=== PATIENT | male | born 1945 | race Caucasian/White ===

== ENCOUNTER → 2016-12-14 | Outpatient (CLI) | payer OTHER ==
[~2016-12-14] MED LIST: ALBINS/ INH; ALBU1AER9 INH; AMLO5TAB2 PO; ASPCH81X PO; ASPI81TA28 PO; ATOR-14 PO; ATOR10TA82 PO; BENA-4 PO; CETI10TA10 PO; DOXA1TAB PO; FEXO180T PO; FLUT0.0529 NAE; FLUT1INH INH; GLIM1TAB2 PO; HYDR12.55 PO; IPRASOL4 INH; LEVO100T7 PO; METF1TAB53 PO; MOME200A INH; MONT1TAB3 PO; PRLSR20 PO; SCOP1.5D TD; SNG10 PO; SPRIN/30 INH; TADA10TA PO; TIOTCAP INH
[2016-12-15 05:42] LABS: ESTIMATED AVERAGE GLUCOSE 103 mg/dl; HA1C FLAG Normal (Normal)
== END | disposition home or self-care (01) ==
LOC: C.LAB 14:31
PROVIDERS: ATTEND Family Medicine
DX: E11.9 Type 2 diabetes mellitus without complications (principal)

== ENCOUNTER → 2017-02-19 | Day surgery (SDC) | payer OTHER ==
[2017-02-13 08:23] VITALS: Ht 157.5 cm; Wt 70.5 kg
[~2017-02-19] VITALS: Ht 157.5 cm; Wt 70.5 kg
[~2017-02-19] MED LIST changes: -ALBINS/ INH; -ALBU1AER9 INH; -ASPI81TA28 PO; -ATOR-14 PO; -ATOR10TA82 PO; +ATOR10TA88 PO; -BENA-4 PO; -DOXA1TAB PO; -FEXO180T PO; -GLIM1TAB2 PO; +LIDOCAINE HCL 2% 2 ML VIAL (20MG/ML) ONE; -MOME200A INH; -MONT1TAB3 PO; +PROPOFOL IV EMULSION 10 MG/ML 20 ML VIAL IV ONE; -SCOP1.5D TD; +SODIUM CHLORIDE 0.9% 500ML 500 ML IV ONE; -TADA10TA PO; -TIOTCAP INH; +[UNRECOGNIZED DRUG - CODE] PO
--- NOTE | 2017-02-19 10:14 | Endo History and Physical ---
History & Physical Date of Service: Feb 19, 2017. Chief Complaint: Hx of colon Polyps Referring Physician: Dr Cynthia Temple History of Present Illness 71 yo presenting for evaluation of tubular adenoma history for repeat colonoscopy Past Medical History Diabetes, Asthma, Reflux, Heart Disease, Hypertension Past Surgical History Hx Cardiac Surgery: No Hx Internal Defibrillator: No Hx Pacemaker: No Hx Abdominal Surgery: No Hx of Implantable Prosthesis: No Hx Post-Op Nausea and Vomiting: No Hx Cancer Surgery: No Hx Thoracic Surgery: Yes (BRONCHOSCOPY) Hx Orthopedic: Yes (LEFT RCR) Hx Urinary Tract Surgery: No Family History None Social History Smoking Status: Never Smoker Hx Substance Use: No Hx Alcohol Use: No Allergies Coded Allergies: Cat Dander (Verified Allergy, Unknown, watery eyes, 02/19/17) NO KNOWN DRUG ALLERGIES (Verified Allergy, Unknown, ., 02/13/17) Current Medications Reported Home Medications Medications Dose Route/Sig Max Daily Dose Days Date Category Duoneb (Ipratropium-Albuterol) 3 Ml Nebu 1 Treatment INH Q4H PRN 02/13/17 Reported Spiriva Handihaler (Tiotropium [place]) 30 Puff/540 Mcg Aerp 1 Cap INH DAILY AFTERNOON 02/13/17 Reported Breo Ellipta (Fluticasone Furoate-Vilanterol) 1 Inh Inh 1 Puff INH QAM 02/13/17 Reported Aspirin Chewable (Aspirin) 81 Mg Chew 81 Mg PO QAM 02/13/17 Reported Doxazosin (Doxazosin Mesylate) 2 Mg Tab 1 Tab PO HS 02/13/17 Reported Levothyroxine Sodium 100 Mcg Tab 1 Tab PO QAM 90 02/13/17 Reported Norvasc (Amlodipine Besylate) 5 Mg Tab 5 Mg PO QAM 02/13/17 Reported Prilosec (Omeprazole) 20 Mg Capcr 20 Mg PO QAM 02/13/17 Reported Hydrochlorothiazide 12.5 Mg Tab 1 Tab PO QAM 90 02/13/17 Reported Zyrtec (Cetirizine Hcl) 10 Mg Tab 10 Mg PO QAM 02/13/17 Reported Montelukast Sodium (Montelukast Sod) 10 Mg Tab 1 Tab PO QAM 02/13/17 Reported Lipitor (Atorvastatin Calcium) 10 Mg Tab 10 Mg PO QAM 02/13/17 Reported Glucophage Ext Rel (Metformin Hcl) 1,000 Mg Tab 1,000 Mg PO BID 02/13/17 Reported Flonase (Fluticasone Propionate (Nasal)) 50 Mcg/Act Spr 2 [place] JORGE DAILY 30 03/11/15 Reported Vital Signs Weight (Kilograms): 70.45 Height (Feet): 5 Height (Inches): 2 Physical Exam General Appearance: WD/WN, no apparent distress Respiratory/Chest: Respiratory effort: no dyspnea Auscultation: breath sounds normal, CTA except as noted, no wheezing Cardiovascular: Apical Impulse: not displaced Heart Auscultation: RRR, normal S1, normal S2 Abdomen: Bowel Sounds: normal Inspection & Palpation: soft, non-distended Assessment and Plan 71 yo presenting for follow up for history of tubular adenomas
--- NOTE | 2017-02-19 11:20 | Discharge Instructions ---
Endoscopy Patient Instructions Date / Procedure(s) Performed Feb 19, 2017. Colonoscopy Allergy Information Coded Allergies: Cat Dander (Verified Allergy, Unknown, watery eyes, 02/19/17) NO KNOWN DRUG ALLERGIES (Verified Allergy, Unknown, ., 02/13/17) Discharge Date / Findings Feb 19, 2017. One small polyp-removed Repeat colonoscopy in 5 years Medication Instructions Stopped Medication(s): Patient stoped ASA and Metformin Provider Instructions Activity Restrictions - No exercising or heavy lifting for 24 hours. - Do not drink alcohol the day of the procedure. - Do not drive a car or operate machinery until the day after the procedure. - Do not make any important decisions or sign important papers in 24 hours after the procedure. Following Day: - Return to full activity which may include returning to work/school. Diet Start your diet with liquids and light foods (jello, soup, juice, toast). Then eat your usual diet if not nauseated. Treatment For Common After Affects For mild abdominal pain, bloating, or excessive gas: - Rest - Eat lightly - Lie on right side Follow-Up Information Follow-up with Dr Cynthia Temple as scheduled Anesthesia Information What You Should Know You have had a procedure that required some medicine to reduce anxiety and discomfort. This treatment is called moderate sedation. After receiving the treatment, you may be sleepy, but you will be able to breathe on your own. The effects of the treatment may last for several hours. Follow these instructions along with Activity/Diet recommendations noted above: * Do NOT do anything where dizziness or clumsiness would be dangerous. * Rest quietly at home today, then you can be up and about tomorrow. * Have a responsible person stay with you the rest of today. * You may have had an I.V. today. If so, you may take the dressing off later today. Recommendations Call your doctor if: * Trouble breathing * Continuous vomiting for more than 24 hours * Temperature above 101 degrees * Severe abdominal pain or bloating * Pain not relieved by pain medicine ordered * There is increased drainage or redness from any incision * A large amount of rectal bleeding greater than 2-3 tablespoons. (If you had a polyp/s removed or have hemorrhoids, a small amount of blood - from the rectum is to be expected.) * You have any unanswered questions or concerns. IN THE EVENT OF A SERIOUS EMERGENCY, GO TO THE NEAREST EMERGENCY ROOM Your discharge instructions were prepared by provider Garett Gomez. Patient Instructions Signature Page Alcides Sebastian Patient (or Guardian) Signature/Date: I have read and understand the instructions given to me by my caregivers. Caregiver/RN/Doctor Signature/Date: The above-named patient and/or guardian has received patient instructions on this date. + Original Patient Signature Page (only) stays with chart. Please make copy for patient.
--- NOTE | 2017-02-19 11:20 | GI REPORT ---
Procedure Date: 02/19/2017 10:32 AM Procedure: Colonoscopy Indications: High risk colon cancer surveillance: Personal history of colonic polyps Medicines: General Anesthesia Complications: No immediate complications. Estimated blood loss: None. Estimated Blood Loss: Estimated blood loss: none. Procedure: Pre-Anesthesia Assessment: - Pre-Anesthesia Assessment: - Prior to the procedure, a History and Physical was performed, and patient medications, allergies and sensitivities were reviewed. The patient's tolerance of previous anesthesia was reviewed. Please see [facility] for complete details. - The risks and benefits of the procedure and the sedation options and risks were discussed with the patient. All questions were answered and informed consent was obtained. - Patient identification and proposed procedure were verified prior to the procedure by the physician and the nurse. The procedure was verified in the pre-procedure area in the procedure room. After obtaining informed consent, the endoscope was passed carefully and meticuously under direct vision and only advanced when the lumen was clearly identified, C02 insuflation was utilized throughout the entirity of the procedure. Throughout the procedure, the patient's blood pressure, pulse, and oxygen saturations were monitored continuously. After I obtained informed consent, the scope was passed under direct vision. Throughout the procedure, the patient's blood pressure, pulse, and oxygen saturations were monitored continuously. The scope was introduced through the anus and advanced to the cecum, identified by appendiceal orifice and ileocecal valve. The colonoscopy was performed without difficulty. The patient tolerated the procedure well. The quality of the bowel preparation was good. Findings: A 3 mm polyp was found in the transverse colon. The polyp was sessile. The polyp was removed with a jumbo cold forceps. Resection and retrieval were complete. The terminal ileum appeared normal. Multiple small-mouthed diverticula were found in the sigmoid colon. Internal hemorrhoids were found during retroflexion. The exam was otherwise without abnormality on direct and retroflexion views. Impression: - One 3 mm polyp in the transverse colon, removed with a jumbo cold forceps. Resected and retrieved. - The examined portion of the ileum was normal. - Diverticulosis in the sigmoid colon. - Internal hemorrhoids. - The examination was otherwise normal on direct and retroflexion views. Recommendation: - Discharge patient to home (with escort). - Await pathology results. - Repeat colonoscopy in 5 years for surveillance. - Return to referring physician as previously scheduled. Garett Gomez MD 02/19/2017 11:19:37 AM This report has been signed electronically. Note Initiated On: 02/19/2017 10:32 AM I attest to the content of the Intraoperative Record and orders documented therein, exceptions below
[2017-02-19 11:52] VITALS: BP 133/88; PULSE 91; O2SAT 96
--- NOTE | 2017-02-19 11:55 | Anesthesiology Progress Note ---
Anesthesia Post Op Note Date & Time Feb 19, 2017 at 11:54 Vital Signs Pain Intensity: 0 Vital Signs Past 12 Hours Date Time Temp Pulse Resp B/P (MAP) Pulse Ox O2 Delivery O2 Flow Rate FiO2 02/19/17 11:52 91 20 133/88 (103) 96 Room Air 02/19/17 11:37 86 20 135/86 (102) 96 Room Air 02/19/17 11:22 91 20 140/96 (111) 97 Mask 10 02/19/17 10:19 36.5 101 20 136/82 (100) 96 Room Air Notes Mental Status: alert / awake / arousable, participated in evaluation Pt Amnestic to Procedure: Yes Nausea / Vomiting: adequately controlled Pain: adequately controlled Airway Patency, RR, SpO2: stable & adequate BP & HR: stable & adequate Hydration State: stable & adequate Anesthetic Complications: no major complications apparent
== END | disposition home or self-care (01) ==
LOC: C.GI 09:53
PROVIDERS: ATTEND Internal Medicine
DX: Z12.11 Encounter for screening for malignant neoplasm of colon (principal); Z86.010 Personal history of colon polyps; D12.3 Benign neoplasm of transverse colon; K57.30 Diverticulosis of large intestine without perforation or abscess without bleeding; K64.8 Other hemorrhoids; E11.9 Type 2 diabetes mellitus without complications; J45.909 Unspecified asthma, uncomplicated; K21.9 Gastro-esophageal reflux disease without esophagitis; I10 Essential (primary) hypertension; Z79.82 Long term (current) use of aspirin; Z79.4 Long term (current) use of insulin; Z90.89 Acquired absence of other organs; E78.5 Hyperlipidemia, unspecified; M19.90 Unspecified osteoarthritis, unspecified site; E03.9 Hypothyroidism, unspecified

== ENCOUNTER 2018-12-02 10:34 | Inpatient (IN) ==
--- OUTSIDE RECORDS SUMMARY | 2018-12-02 10:37 | External Medical Summary | Continuity of Care Document ---
:1945 Author Name Zechariah Hathaway, Provider Address Unavailable Unavailable , Care Team Providers Name Role Phone Hal Paul M.D. Unavailable [email or web address] Unavailable [email or web address] Unavailable Unavailable Unavailable Unavailable Problems Benign prostatic hypertrophy (600.00) (N40.0) Gastroesophageal reflux disease (530.81) (K21.9) Hypertension (401.9) (I10) Hyperlipidemia (272.4) (E78.5) Diabetes mellitus (250.00) (E11.9) Allergic rhinitis due to animal dander (477.2) (J30.81) Allergic rhinitis due to dust (477.8) (J30.89) Allergic rhinitis due to pollen (477.0) (J30.1) Visit for monitoring Xolair therapy (V58.83) (Z51.81) Asthma, moderate persistent (493.90) (J45.40) Allergies and Adverse Reactions No Known Drug Allergies (Allergy) Medications Aspirin 81 MG TABS; TAKE 1 TABLET DAILY. Refills: 0 ProAir HFA 108 (90 Base) MCG/ACT Inhalat ion Aerosol Solution; INHALE 2 PUFFS EVERY 4 HOURS NEEDED 8.5 GM Inhaler Quantity: 1 Refills: 5 Omeprazole 20 MG Oral Capsule Delayed Re lease; TAKE 1 CAPSULE BY MOUTH ONCE A DAY 1 HOUR BEFORE FIRST MEAL OF THE DAY Refills: 0 Cialis 20 MG Oral Tablet; Take 1 pill by mouth prior to intercourse, no more than 1 dose in 24 hours Refills: 0 Doxazosin Mesylate 2 MG Oral Tablet; TAKE 1 TABLET DAILY DIRECTED. Refills: 0 Singulair 10 MG Oral Tablet; TAKE 1 TABLET DAILY. Quantity: 30 Refills: 5 Lipitor 10 MG Oral Tablet; TAKE 1 TABLET DAILY. Refills: 0 Benazepril-hydroCHLOROthiazide 20-12.5 M G Oral Tablet; TAKE 1 TABLET DAILY DIRECTED. Refills: 0 Spiriva HandiHaler 18 MCG Inhalation Cap shirley; INHALE CONTENTS OF 1 CAPSULE ONCE DAILY. 90 Capsule Box Quantity: 1 Refills: 3 Synthroid 100 MCG Oral Tablet; TAKE 1 TABLET DAILY DIRECT ED. Refills: 5 Breo Ellipta 200-25 MCG/INH Inhalation A erosol Powder Breath Activated; INHALE 1 PUFF BY MOUTH ONCE DAILY DIRETCED Mag Paul Start: Quantity: 1 28 Inhaler Pack Refills: 11 EPINEPHrine 0.3 MG/0.3ML Injection Solut ion Auto-injector; INJECT 0.3ML INTRAMUSCULARLY DIRECTED. Mag Pual Start: 18-Jul-2015 Quantity: 1 Refills: 4 Mometasone Furoate 50 MCG/ACT Nasal Susp ension; APPLY TWO Sprays in each nostril EVERY DAY LEONOR Garay Start: 03-Mar-2018 Quantity: 17 Refills: 5 metFORMIN HCl TABS Refills: 0 Cetirizine HCl - 10 MG Oral Tablet Refills: 0 amLODIPine Besylate 5 MG Oral Tablet; TAKE 1 TABLET DAILY DIRECTED. Refills: 0 Ipratropium-Albuterol 0.5-2.5 (3) MG/3ML Inhalation Solution; USE 1 UNIT DOSE IN NEBULIZER 2-3 TIMES DAILY. LEONOR Garay Start: 17-Mar-2015 Quantity: 5 60 x 3 ML Plas Cont Refills: 3 Xolair 150 MG Subcutaneous Solution Yusuf nstituted; INJECT 150 MG SUBCUTANEOUSLY EVERY 4 WEEKS. Mag Paul Start: 12-Apr-2015 Quantity: 1 Refills: 11 Procedures History of Colonoscopy (Fiberoptic) Stat us: Completed History of Shoulder Surgery Left Status: Completed Immunizations Tdap On: 04-Mar-2007 Pneumococcal polysaccharide vaccine, 23 valent On: 12-Oct-19 12 Zoster (Zostavax) On: 18-Apr-2012 Influenza On: 28-May-2014 Prevnar 13 Intramuscular Suspension On: 23-Aug-2014 Influenza On: 28-Apr-2015 Family History Mother Family history of diabetes mellitus (V18.0) (Z83.3) Status: Active Father Family history of emphysema (V17.6) (Z82.5) Status: Active Social History - Smoking Status Never smoker Plan of Treatment Planned Encounters Appointment; Hal Paul M.D. Start: 27-Jan-2019 10:[address] Planned Observations Planned Goals not documented Results No Known Results Results not documented Encounters Appointment; Nurse, Allergy 10-Nov-2018 9:50 Encounter Diagnosis: Problem not documented Appointment; Nurse, Allergy 09-Oct-2018 9:50 Encounter Diagnosis: Problem not documented Appointment; Nurse, Allergy 01-Sep-2018 9:30 Encounter Diagnosis: Problem not documented Appointment; Hal Paul M.D. 13-Aug-2018 13:30 Encounter Diagnosis: Problem not documented Appointment; Nurse, Allergy 31-Jul-2018 9:30 Encounter Diagnosis: Problem not documented Appointment; Nurse, Allergy 30-Jun-2018 9:30 Encounter Diagnosis: Problem not documented Appointment; Nurse, Allergy 02-Jun-2018 9:30 Encounter Diagnosis: Problem not documented Appointment; Nurse, Allergy 01-May-2018 9:30 Encounter Diagnosis: Problem not documented Appointment; Nurse, Allergy 01-Apr-2018 9:50 Encounter Diagnosis: Problem not documented Appointment; Nurse, Allergy 03-Mar-2018 11:50 Encounter Diagnosis: Problem not documented Appointment; Hal Paul M.D. 10-Feb-2018 14:45 Encounter Diagnosis: Problem not documented Appointment; Pulmonary, Funct Testing 10-Feb-2018 14:30 Encounter Diagnosis: Problem not documented Appointment; Nurse, Allergy 05-Feb-2018 9:50 Encounter Diagnosis: Problem not documented Appointment; Nurse, Allergy 06-Jan-2018 9:50 Encounter Diagnosis: Problem not documented Appointment; Nurse, Allergy 09-Dec-2017 9:50 Encounter Diagnosis: Problem not documented Appointment; Nurse, Allergy 11-Nov-2017 8:30 Encounter Diagnosis: Problem not documented Appointment; Nurse, Allergy 09-Oct-2017 9:30 Encounter Diagnosis: Problem not documented Appointment; Nurse, Allergy 11-Sep-2017 9:30 Encounter Diagnosis: Problem not documented Appointment; Nurse, Allergy 12-Aug-2017 9:30 Encounter Diagnosis: Problem not documented Appointment; Hal Paul M.D. 25-Jul-2017 10:30 Encounter Diagnosis: Problem not documented Appointment; Nurse, Allergy 08-Jul-2017 9:30 Encounter Diagnosis: Problem not documented Appointment; Nurse, Allergy 10-Jun-2017 9:30 Encounter Diagnosis: Problem not documented Appointment; Nurse, Allergy 09-May-2017 9:30 Encounter Diagnosis: Problem not documented Appointment; Nurse, Allergy 11-Apr-2017 9:30 Encounter Diagnosis: Problem not documented Appointment; Nurse, Allergy 11-Mar-2017 9:30 Encounter Diagnosis: Problem not documented Appointment; Nurse, Allergy 08-Feb-2017 9:30 Encounter Diagnosis: Problem not documented Appointment; Hal Paul M.D. 17-Jan-2017 9:45 Encounter Diagnosis: Problem not documented Appointment; Pulmonary, Funct Testing 17-Jan-2017 9:30 Encounter Diagnosis: Problem not documented Appointment; Nurse, Allergy 07-Jan-2017 9:30 Encounter Diagnosis: Problem not documented Appointment; Nurse, Allergy 10-Dec-2016 9:30 Encounter Diagnosis: Problem not documented Appointment; aHl Paul M.D. 27-Jan-2019 10:30 Encounter Diagnosis: Problem not documented
[2018-12-02] MEDS ORDERED: LEVOFLOXACIN/D5W 750 MG/150 ML BAG IV STA (11:09)
[2018-12-02] MEDS ORDERED: SODIUM CHLORIDE 0.9% 1000ML 2,000 ML IV ONE (11:09)
--- NOTE | 2018-12-02 11:20 | XRay Report ---
XR chest 1V portable CLINICAL HISTORY: Sepsis COMPARISON STUDY: 12/22/2015 FINDINGS: The heart is enlarged. There are lower lobe airspace opacities, atelectatic versus pneumoni a there is no failure. There are minor right basilar atelectatic changes. There are no significant pl eural effusions. IMPRESSION: Interval development of left lower lung zone airspace opacities, pneumonia versus atelect asis. Clinical and radiographic follow-up is recommended. Electronically signed by: Sadi Becerra M.D. 12/02/2018 11:19 AM
[2018-12-02 11:26] LABS: Basophils # (auto) 0.01 K/uL (0-0.2); Basophils % (auto) 0.1 %; Hematocrit (blood only) 40.6 % (42-52); Hemoglobin 14.8 g/dL (14.0-18.0); Immature Granulocytes # (auto) 0.07 K/uL (0.00-0.02); Immature Granulocytes % (auto) 0.6 %; Lymphocytes % (auto) 9.7 %; Mean Corpuscular Hgb Conc 36.5 g/dL (32-36); Mean Corpuscular Volume 83.2 fL (80-100); Monocytes # (auto) 1.61 K/uL (0.11-0.59); Monocytes % (auto) 14.2 %; Neutrophils # (auto) 8.54 K/uL (1.4-6.5); Neutrophils % (auto) 75.4 %; Platelet Count 257 K/uL (130-400); RDW Coefficient of Variation 14.5 % (11.5-14.5); RDW Standard Deviation 43.9 fL (36.4-46.3); Red Blood Count 4.88 M/uL (4.7-6.1); White Blood Count 11.33 K/uL (4.8-10.8)
[2018-12-02 11:44] LABS: Alanine Aminotransferase 36 U/L (12-78); Albumin Level 3.8 gm/dl (3.4-5.0); Aspartate Aminotransferase 18 U/L (15-37); Blood Urea Nitrogen 14 mg/dl (7-18); Calcium 8.9 mg/dl (8.5-10.1); Carbon Dioxide 26 mmol/L (21-32); Chloride 96 mmol/L (98-107); Est GFR (African American) 99.5; Est GFR (Non-African American) 85.8; Glucose 161 mg/dl (70-99); Potassium 3.4 mmol/L (3.5-5.1); Sodium 133 mmol/L (136-145)
[2018-12-02 11:46] LABS: Albumin Globulin Ratio 1.1 (0.9-2); Alkaline Phosphatase 33 U/L (45-117); Bilirubin,Total 0.6 mg/dl (0.2-1); Globulin 3.5 gm/dl (2.5-4.0); Total Protein 7.3 gm/dl (6.4-8.2)
[2018-12-02 11:47] LABS: INR 1.1 (0.9-1.1); Partial Thromboplastin Ratio 0.9; Prothrombin Time 11.3 Seconds (9.0-12.0)
[2018-12-02] MEDS ORDERED: ALBUTEROL 0.083% NEBU SOLN 3 ML VIAL NEB STA (11:48)
[2018-12-02] MEDS ORDERED: cefTRIAXone SODIUM 1,000 MG/50 ML BAG IV STA (11:55)
[2018-12-02 12:28] LABS: Appearance Urine Clear (Clear); Bacteria Urine Automated Negative (Negative); Bilirubin Urine Negative (Negative); Blood Urine Negative (Negative); Color Urine Yellow; Epithelial Cell Urine Auto 0-5 /lpf (0-5); Glucose Urine UA Negative (Negative); Ketones Urine Trace (Negative); Leukocyte Esterase Urine Negative (Negative); Nitrite Urine Negative (Negative); Protein Urine Trace (Negative); RBC Urine Automated 0-4 /hpf (0-4); Specific Gravity Urine 1.023 (1.000-1.030); Urobilinogen Urine Negative (Negative)
[2018-12-02] MEDS: ACETAMINOPHEN 325 MG TAB PO PRN (13:04)
--- NOTE | 2018-12-02 13:32 | History & Physical Report ---
Date of Service December 02, 2018 Assessment & Plan (1) Pneumonia: (2) Sepsis: (3) Asthma, moderate persistent: -Admit to telemetry -Patient presenting from home with productive cough and shortness of breath x 1 day -On presentation, WBC 11 K, tachycardic, low-grade fever 37.8, lactic acid 2.1, tachypneic; BP stable -Saturating in the low 90s on room air, 2 L of oxygen via nasal cannula was applied -S/P ceftriaxone and levofloxacin in the ED, will continue with levofloxacin for now and check MRSA nasal swab and add vancomycin if positive -Continue IVF -Blood and sputum cultures -Check ABG -Influenza PCR negative -Given history of asthma, will start Solu-Medrol 40 mg IV every 8 -Continue home inhaled corticosteroid -Pulmonary toilet with nebulizers, flutter valve, chest PT (4) HTN (hypertension): -BP controlled, continue amlodipine -Holding HCTZ while receiving IVF for sepsis (5) DM type 2 (diabetes mellitus, type 2): -Hgb A1c 5.6 07/2018 -Hold oral agents and utilize NovoLog per protocol hospitalized (6) Hypothyroidism: -Continue levothyroxine (7) Dyslipidemia: -Continue statin (8) BPH (benign prostatic hyperplasia): -Continue doxazosin (9) DVT prophylaxis: -SQ Lovenox History of Present Illness Chief Complaint: Cough, shortness of breath Primary Care Provider: Cynthia Tempel MD 73-year-old male who presents the ED with cough and shortness of breath. Patient reports his symptoms began yesterday. Patient with history of asthma with frequent exacerbations and pneumonia. Patient was most recent diagnosis of pneumonia on 10/02/2018. reports she had similar URI symptoms last week. Patient reports a persistent cough that is been productive for green sputum. He reports shortness of breath at rest as well as with minimal exertion. He begin a prednisone rescue kit yesterday. He reports some chest pain only with coughing. He did not take his temperature at home. He denies lightheadedness, dizziness, diaphoresis, syncopal events. No abdominal pain, nausea, vomiting, diarrhea. He denies any urinary symptoms. In the ED, patient was saturating in the low 90s, tachycardic in the 140s, febrile 37.8, tachypneic, WBC 11 K, lactic acid 2.1. CXR showing left basilar opacity consistent with pneumonia. Sepsis alert was called when patient arrived to the ED. He was given IVF, IV Levaquin, IV ceftriaxone, albuterol. Allergies Allergy/AdvReac Type Severity Reaction Status Date / Time cat dander Allergy Unknown watery eyes Verified 12/02/18 11:58 No Known Drug Allergies Allergy Unknown . Verified 12/02/18 11:58 Home Medications Home Medications Medication Instructions Recorded Confirmed Type aspirin [Aspirin Low Dose] 81 mg PO DAILY #0 tab 02/13/17 12/02/18 History atorvastatin 10 mg PO DAILY #0 tab 02/13/17 12/02/18 History doxazosin 2 mg PO DAILY #0 02/13/17 12/02/18 History fluticasone furoate-vilanterol 1 inh INHALATION DAILY #0 02/13/17 12/02/18 History [Breo Ellipta] ipratropium-albuterol 3 ml INHALATION Q4 PRN #0 inh 02/13/17 12/02/18 History levothyroxine 100 mcg PO DAILY 90 Days #90 tab 02/13/17 12/02/18 History montelukast 10 mg PO QAM #0 02/13/17 12/02/18 History omeprazole 20 mg PO DAILY #0 cap 02/13/17 12/02/18 History tiotropium bromide [Spiriva with 1 cap INHALATION DAILY AFTERNOON 02/13/17 12/02/18 History HandiHaler] #0 inhaler albuterol sulfate 2 puff INHALATION Q4H PRN 12/02/18 12/02/18 History amlodipine 5 mg PO DAILY 12/02/18 12/02/18 History beclomethasone dipropionate [QNASL] 2 inh INTRANASAL DAILY 12/02/18 12/02/18 History hydrochlorothiazide 12.5 mg PO DAILY 12/02/18 12/02/18 History metformin 1,000 mg PO BID 12/02/18 12/02/18 History mometasone 2 spray INTRANASAL DAILY 12/02/18 12/02/18 History omalizumab [Xolair] 150 mg SUBCUT UD 12/02/18 12/02/18 History tadalafil [Cialis] 20 mg PO DAILY PRN 12/02/18 12/02/18 History Past Med/Surg History Medical History BPH (benign prostatic hyperplasia) (Chronic) HTN (hypertension) (Chronic) Allergic rhinitis (Chronic) Asthma, moderate persistent (Chronic) Dyslipidemia (Chronic) Hypothyroidism (Chronic) DM type 2 (diabetes mellitus, type 2) (Chronic) Family History Mother Diabetes Father Diabetes Sister Diabetes Social History Preferred Language: Jordanian Communication Ability: Effective 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 Beliefs That Will Affect Care: None marital status: Current Living Situation: Spouse current occupational status: retired Other Information That Helps Us Care for You: No Feels Safe at Home: Yes Safety Concerns: Feels Safe At This Time Smoking Status: Never smoker Hx Alcohol Use: No Hx Substance Use: No Review of Systems Review of Systems: ROS per HPI, all other systems reviewed and negative Physical Exam Constitutional: WD/WN, vitals as above + ill appearing Eyes: PERRL, conjunctivae normal, anicteric sclerae ENMT: external ear and nose normal, oropharynx normal Respiratory: + tachypneic; + abnormal respiratory effort and + not able to speak in complete sentence (Mild conversational dyspnea noted) Auscultation: + rhonchi (Bilateral, scattered throughout all lung barros) Cardiovascular: Rate/Rhythm: regular rhythm and + tachycardic Vessels: normal peripheral pulses Extremities: no edema Gastrointestinal (Abdomen): normal bowel sounds, soft, nontender, no hepatosplenomegaly Musculoskeletal: no cyanosis or clubbing, extremities motor strength 5/5 Skin: no rashes, warm and dry Neurologic: PERRL, EOMI, accommodation nl, no face palsy, no dysarthria Psychiatric: A+Ox3, euthymic affect Results & Data Vital Signs (Past 12 Hours) Vital Signs Temp Pulse Pulse Resp BP BP Pulse Ox 12/02/18 12:48 140 H 18 139/90 94 12/02/18 11:14 94 12/02/18 11:07 91 12/02/18 10:44 37.8 C H 130 H 20 152/92 H 92 Laboratory Results Laboratory Last Values WBC 11.33 K/uL (4.8-10.8) H 12/02/18 11:09 RBC 4.88 M/uL (4.7-6.1) 12/02/18 11:09 Hgb 14.8 g/dL (14.0-18.0) 12/02/18 11:09 Hct 40.6 % (42-52) L 12/02/18 11:09 MCV 83.2 fL (80-100) 12/02/18 11:09 MCH 30.3 pg (25-34) 12/02/18 11:09 MCHC 36.5 g/dL (32-36) H 12/02/18 11:09 RDW Std Deviation 43.9 fL (36.4-46.3) 12/02/18 11:09 RDW Coeff of Zainab 14.5 % (11.5-14.5) 12/02/18 11:09 Plt Count 257 K/uL (130-400) 12/02/18 11:09 MPV 9.0 fL (7.4-10.4) 12/02/18 11:09 Immature Gran % (Auto) 0.6 % 12/02/18 11:09 Neut % (Auto) 75.4 % 12/02/18 11:09 Lymph % (Auto) 9.7 % 12/02/18 11:09 [place] % (Auto) 14.2 % 12/02/18 11:09 Eos % (Auto) 0.0 % 12/02/18 11:09 Baso % (Auto) 0.1 % 12/02/18 11:09 Immature Gran # (Auto) 0.07 K/uL (0.00-0.02) H 12/02/18 11:09 Neut # (Auto) 8.54 K/uL (1.4-6.5) H 12/02/18 11:09 Lymph # (Auto) 1.10 K/uL (1.2-3.4) L 12/02/18 11:09 [place] # (Auto) 1.61 K/uL (0.11-0.59) H 12/02/18 11:09 Eos # (Auto) 0.00 K/uL (0-0.5) 12/02/18 11:09 Baso # (Auto) 0.01 K/uL (0-0.2) 12/02/18 11:09 PT 11.3 Seconds (9.0-12.0) 12/02/18 11:09 INR 1.1 (0.9-1.1) 12/02/18 11:09 APTT 25.0 Seconds (21.0-31.0) 12/02/18 11:09 PTT Ratio 0.9 12/02/18 11:09 Sodium 133 mmol/L (136-145) L 12/02/18 11:09 Potassium 3.4 mmol/L (3.5-5.1) L 12/02/18 11:09 Chloride 96 mmol/L (98-107) L 12/02/18 11:09 Carbon Dioxide 26 mmol/L (21-32) 12/02/18 11:09 Anion Gap 10.0 (3-11) 12/02/18 11:09 BUN 14 mg/dl (7-18) 12/02/18 11:09 Creatinine 0.88 mg/dl (0.6-1.4) 12/02/18 11:09 Est Cr Clr Drug Dosing Not Reportable 12/02/18 11:09 Est GFR ( Amer) 99.5 12/02/18 11:09 Est GFR (Non-Af Amer) 85.8 12/02/18 11:09 BUN/Creatinine Ratio 16.0 (10-20) 12/02/18 11:09 Glucose 161 mg/dl (70-99) H 12/02/18 11:09 POC Glucose 159 (70-99) H 12/02/18 11:37 Lactate 2.1 mmol/L (0.4-2.0) H* 12/02/18 11:15 Calcium 8.9 mg/dl (8.5-10.1) 12/02/18 11:09 Total Bilirubin 0.6 mg/dl (0.2-1) 12/02/18 11:09 AST 18 U/L (15-37) 12/02/18 11:09 ALT 36 U/L (12-78) 12/02/18 11:09 Alkaline Phosphatase 33 U/L (45-117) L 12/02/18 11:09 Total Protein 7.3 gm/dl (6.4-8.2) 12/02/18 11:09 Albumin 3.8 gm/dl (3.4-5.0) 12/02/18 11:09 Globulin 3.5 gm/dl (2.5-4.0) 12/02/18 11:09 Albumin/Globulin Ratio 1.1 (0.9-2) 12/02/18 11:09 Urine Color Yellow 12/02/18 10:54 Urine Appearance Clear (Clear) 12/02/18 10:54 Urine pH 6.0 (4.5-7.5) 12/02/18 10:54 Ur Specific [place] 1.023 (1.000-1.030) 12/02/18 10:54 Urine Protein Trace (Negative) H 12/02/18 10:54 Urine Glucose (UA) Negative (Negative) 12/02/18 10:54 Urine Ketones Trace (Negative) H 12/02/18 10:54 Urine Blood Negative (Negative) 12/02/18 10:54 Urine Nitrite Negative (Negative) 12/02/18 10:54 Urine Bilirubin Negative (Negative) 12/02/18 10:54 Urine Urobilinogen Negative (Negative) 12/02/18 10:54 Ur Leukocyte Esterase Negative (Negative) 12/02/18 10:54 Urine WBC (Auto) 1-5 /hpf (0-5) 12/02/18 10:54 Urine RBC (Auto) 0-4 /hpf (0-4) 12/02/18 10:54 U Hyaline Cast (Auto) 1-5 /lpf (0-5) 12/02/18 10:54 U Epithel Cells (Auto) 0-5 /lpf (0-5) 12/02/18 10:54 Urine Bacteria (Auto) Negative (Negative) 12/02/18 10:54 Influenza Type A Ag Neg for Influ A (Neg) 12/02/18 12:15 Influenza Type B Ag Neg for Influ B (Neg) 12/02/18 12:15 Diagnostic Findings CXR IMPRESSION: Interval development of left lower lung zone airspace opacities, pneumonia versus atelectasis. Clinical and radiographic follow-up is recommended. Code Status & VTE Plan Code Status Patient is a full code as per my discussion with him. VTE Prophylaxis Plan VTE Prophylaxis will be ordered: Yes Supervising Physician Co-Signing Physician Notes 73-year-old male with PMH of asthma, BPH HTN, Hypothyroidism, DM type 2 presents the ED with worsening shortness of breath associated with cough. CXR on admission showed interval development of left lower lung zone airspace opacities. He does have a coarse BS on exam. Received Levaquin and ceftriaxone in the ER. Will start on solumedrol 40mg IV q8h. Will continue Levaquin IV for now. Continue nebulizer treatment and oxygen supplement. Will monitor closely. MD Yinka
[2018-12-02 13:53] LABS: HCO3 VBG 27 mmol/L; Oxygen Saturation VBG 67.6 %; PCO2 VBG 41 mmHg (38-50); PO2 VBG 34 mmHg; pH VBG 7.45 (7.36-7.41)
[2018-12-02] MEDS ORDERED: GLUCOSE 10 TABS/TUBE PO PRN (14:10)
[2018-12-02] MEDS ORDERED: CARBOHYDRATES FOR HYPOGLYCEMIA PO PRN (14:10)
[2018-12-02] MEDS ORDERED: XOPENEX/ATROVENT 1.25mg/0.5MG NEB COMBO NEB SCH (14:10)
[2018-12-02] MEDS ORDERED: GLUCOSE 40% GEL 15 GM TUBE PO PRN (14:10)
[2018-12-02] MEDS ORDERED: DEXTROSE 50% 50 ML SYRINGE IV PRN (14:10)
[2018-12-02] MEDS ORDERED: GLUCAGON FOR INJ 1 MG VIAL SQ PRN (14:10)
[2018-12-02] MEDS ORDERED: POTASSIUM CHLORIDE 20 MEQ TABCR PO ONE (15:18)
[2018-12-02] MEDS ORDERED: IPRATROPIUM BROMIDE NEB SOLN 0.02% 2.5 ML VIAL INH PRN (15:32)
[2018-12-02] MEDS ORDERED: LEVALBUTEROL 1.25MG/0.5ML NEB INH PRN (15:34)
[2018-12-02] MEDS: SODIUM CHLORIDE 0.9% 1000ML 1,000 ML IV SCH ×2 (15:45→21:11)
[2018-12-02] MEDS: methylPREDNISolone 40 MG in SYRINGE 0 ML IV SCH (15:45)
--- NOTE | 2018-12-02 17:50 | Emergency Department Note ---
Entered by Mariela Fitch acting as a scribe for History of Present Illness General Chief complaint: Weakness Stated complaint: WEAKNESS Source: patient and family History of Present Illness Onset (ago): day(s) 1 Location: head Pain Consistency: + other (persistent) Quality: + other (weakness) Associated symptoms: + denies other symptoms (sore throat, rhinorrhea, abdominal pain, nausea, vomiting, diarrhea, or urinary complaints), + cough (productive) and + headaches The patient is a 73 year old male that is presenting to the Emergency Room with complaints of persistent weakness that started yesterday. The patient reports that he started feeling very weak and lethargic yesterday with an associated productive cough. He states that he is coughing up green mucous. He denies any sore throat, rhinorrhea, abdominal pain, nausea, vomiting, diarrhea, or urinary complaints. He states he had a mild headache earlier today but that it is currently resolved and was secondary to coughing. He denies having any fevers at home prior to arrival to the Emergency Room. He states that he does not wear O2 at home. He notes that his had a similar cough recently. The patient denies ever smoking cigarettes. Home Medications Home Medications Medication Instructions Recorded Confirmed Type aspirin [Aspirin Low Dose] 81 mg PO DAILY #0 tab 02/13/17 12/02/18 History atorvastatin 10 mg PO DAILY #0 tab 02/13/17 12/02/18 History doxazosin 2 mg PO DAILY #0 02/13/17 12/02/18 History fluticasone furoate-vilanterol 1 inh INHALATION DAILY #0 02/13/17 12/02/18 His tory [Breo Ellipta] ipratropium-albuterol 3 ml INHALATION Q4 PRN #0 inh 02/13/17 12/02/18 History levothyroxine 100 mcg PO DAILY 90 Days #90 tab 02/13/17 12/02/18 History montelukast 10 mg PO QAM #0 02/13/17 12/02/18 History omeprazole 20 mg PO DAILY #0 cap 02/13/17 12/02/18 History tiotropium bromide [Spiriva with 1 cap INHALATION DAILY AFTERNOON 02/13/17 12/02/18 History HandiHaler] #0 inhaler albuterol sulfate 2 puff INHALATION Q4H PRN 12/02/18 12/02/18 History amlodipine 5 mg PO DAILY 12/02/18 12/02/18 History beclomethasone dipropionate [QNASL] 2 inh INTRANASAL DAILY 12/02/18 12/02/18 History hydrochlorothiazide 12.5 mg PO DAILY 12/02/18 12/02/18 History metformin 1,000 mg PO BID 12/02/18 12/02/18 History mometasone 2 spray INTRANASAL DAILY 12/02/18 12/02/18 History omalizumab [Xolair] 150 mg SUBCUT UD 12/02/18 12/02/18 History tadalafil [Cialis] 20 mg PO DAILY PRN 12/02/18 12/02/18 History Allergies Allergy/AdvReac Type Severity Reaction Status Date / Time cat dander Allergy Unknown watery eyes Verified 12/02/18 11:58 No Known Drug Allergies Allergy Unknown . 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 and A total of 10 systems reviewed and were otherwise negative Physical Exam Vital Signs Vital Signs - 24 hr 12/02/18 10:44 12/02/18 11:07 12/02/18 11:14 Temperature 37.8 C H Temperature Source Oral Sepsis Recent Fever Within 48 Hours Yes Sepsis New/Unexplained Change in Mental Status Yes Sepsis Action Taken by Nursing No Action Required Pulse Rate 130 H Pulse Rate [Apical] Pulse Rhythm [Apical] Pulse Strength [Apical] Respiratory Rate 20 Respiratory Effort / Characteristics Respiratory Depth Respiratory Pattern Blood Pressure 152/92 H Blood Pressure [Left Arm] Blood Pressure Mean 112 Blood Pressure Mean [Left Arm] Blood Pressure Position [Left Arm] Pulse Oximetry 92 91 94 Oxygen Delivery Method Room Air Room Air Nasal Cannula Nasal Cannula Oxygen Flow Rate 0 2 12/02/18 12:48 12/02/18 14:00 12/02/18 14:25 Temperature 37.8 C H Temperature Source Oral Sepsis Recent Fever Within 48 Hours Sepsis New/Unexplained Change in Mental Status Sepsis Action Taken by Nursing Pulse Rate Pulse Rate [Apical] 140 H 125 H 115 H Pulse Rhythm [Apical] Regular Pulse Strength [Apical] Normal Respiratory Rate 18 16 18 Respiratory Effort / Characteristics Non-Labored Spontaneous Non-Labored Spontaneous Respiratory Depth Normal Respiratory Pattern Regular Blood Pressure Blood Pressure [Left Arm] 139/90 121/78 Blood Pressure Mean Blood Pressure Mean [Left Arm] 106 92 Blood Pressure Position [Left Arm] Lying Pulse Oximetry 94 95 95 Oxygen Delivery Method Nasal Cannula Nasal Cannula Nasal Cannula Oxygen Flow Rate 2 2 2 12/02/18 15:04 Temperature 37.4 C Temperature Source Oral Sepsis Recent Fever Within 48 Hours Sepsis New/Unexplained Change in Mental Status Sepsis Action Taken by Nursing Pulse Rate Pulse Rate [Apical] 120 H Pulse Rhythm [Apical] Pulse Strength [Apical] Respiratory Rate 20 Respiratory Effort / Characteristics Respiratory Depth Respiratory Pattern Blood Pressure Blood Pressure [Left Arm] 130/87 Blood Pressure Mean Blood Pressure Mean [Left Arm] 101 Blood Pressure Position [Left Arm] Sitting Pulse Oximetry 92 Oxygen Delivery Method Nasal Cannula Oxygen Flow Rate 2.5 GENERAL: Lying in bed, ill appearing, diaphoretic EYE EXAM: normal conjunctiva, PERRL and EOM's grossly intact OROPHARYNX: no exudate, no erythema, lips, buccal mucosa, and tongue normal and mucous membranes are moist NECK: supple, no nuchal rigidity, no adenopathy, non-tender LUNGS: Diffuse wheezing bilaterally. Normal chest wall mechanics HEART: no murmurs, S1 normal and S2 normal. Tachycardic. ABDOMEN: abdomen soft, non-tender, normo-active bowel sounds, no masses, no rebound or guarding. BACK: Back is symmetrical on inspection and there is no deformity, no midline tenderness, no CVA tenderness. SKIN: no rashes and no bruising UPPER EXTREMITIES: upper extremities are grossly normal. LOWER EXTREMITIES: No pitting edema. NEURO EXAM: Normal sensorium, cranial nerves II-XII grossly intact, normal speech, no gross weakness of arms, no gross weakness of legs. Course ED COURSE: Vital signs were reviewed and showed tachycardia and hypertension. The patients medical record was reviewed The above diagnostic studies were performed and reviewed. ED treatments and interventions as stated above. 1056: The patient was evaluated in room A03. A complete history and physical examination was performed. 1154: I discussed the patient's case with MARIA GUADALUPE Powers, who will evaluate the patient for further management and care. 1158: Upon reevaluation, the patient is resting comfortably.I discussed my findings with the patient and he understands and agrees with the treatment plan. Based on the patients age, coexisting illnesses, exam and lab findings the decision to treat as an inpatient was made. The patient remained stable while under my care. The patient will be evaluated for further management. Consultations Consultation #1: I discussed the patient's case with MARIA GUADALUPE Powers, who will evaluate the patient for further management and care. Time: 11:54 Administered Medications Acetaminophen (Tylenol) 650 mg PO Q4H PRN PRN Reason: Pain or Fever Stop: 01/01/19 12:30 Last Admin: 12/02/18 13:04 Dose: 650 mg Documented by: [id number] Sodium Chloride (Nss 1000ml) 1,000 mls @ 125 mls/hr IV .Q8H HARRISON Stop: 01/01/19 15:14 Last Admin: 12/02/18 15:45 Dose: 125 mls/hr Documented by: [id number] Methylprednisolone 40 mg/ (Syringe) 0.64 mls @ 1.5 mls/min IV Q8H HARRISON Stop: 01/01/19 15:59 Last Admin: 12/02/18 15:45 Dose: 1.5 mls/min Documented by: [id number] Discontinued Medications Albuterol (Ventolin 0.083% 2.5mg/3ml) 5 mg NEB NOW STA Stop: 12/02/18 11:49 Last Admin: 12/02/18 11:55 Dose: 5 mg Documented by: [id number] Sodium Chloride (Nss 1000ml) 2,000 mls @ 999 mls/hr IV .Q2H1M ONE Stop: 12/02/18 13:09 Last Infusion: 12/02/18 13:24 Dose: 0 mls/hr Documented by: [id number] Admin: 12/02/18 11:20 Dose: 999 mls/hr Documented by: [id number] Levofloxacin/Dextrose (Levaquin/D5w) 750 mg in 150 mls @ 100 mls/hr IV NOW STA Stop: 12/02/18 12:38 Last Infusion: 12/02/18 13:24 Dose: 0 mls/hr Documented by: [id number] Admin: 12/02/18 11:54 Dose: 100 mls/hr Documented by: [id number] Ceftriaxone Sodium (Rocephin) 1,000 mg in 50 mls @ 100 mls/hr IV NOW STA Stop: 12/02/18 12:24 Last Infusion: 12/02/18 12:46 Dose: 0 mls/hr Documented by: [id number] Admin: 12/02/18 12:15 Dose: 100 mls/hr Documented by: [id number] Miscellaneous (Levalbuterol/Ipratropium 1.25mg) 1 ea NEB Q6R HARRISON Stop: 01/01/19 14:09 Last Admin: 12/02/18 14:24 Dose: 1 ea Documented by: [id number] Potassium Chloride (Klor-Con M20) 40 meq PO NOW ONE Stop: 12/02/18 15:19 Last Admin: 12/02/18 15:45 Dose: 40 meq Documented by: [id number] Medical Decision Making Differential Diagnosis Differential diagnosis includes etiologies such as sepsis, UTI, pneumonia, metabolic, electrolyte abnormalities, cardiac sources, intracerebral event, toxicologic, neurologic, as well as others were entertained. Medical Records Attestation: I reviewed the patient's medical records. Home Medications Current Medication List: was personally reviewed by me Laboratory Data Attestation: I reviewed the patient's lab results. Result diagrams: 12/02/18 11:09 12/02/18 11:09 Lab Results 12/02/18 12/02/18 12/02/18 Range/Units 10:54 11:09 11:09 WBC 11.33 H (4.8-10.8) K/uL RBC 4.88 (4.7-6.1) M/uL Hgb 14.8 (14.0-18.0) g/dL Hct 40.6 L (42-52) % MCV 83.2 (80-100) fL MCH 30.3 (25-34) pg MCHC 36.5 H (32-36) g/dL RDW Std Deviation 43.9 (36.4-46.3) fL RDW Coeff of Zainab 14.5 (11.5-14.5) % Plt Count 257 (130-400) K/uL MPV 9.0 (7.4-10.4) fL Immature Gran % (Auto) 0.6 % Neut % (Auto) 75.4 % Lymph % (Auto) 9.7 % [place] % (Auto) 14.2 % Eos % (Auto) 0.0 % Baso % (Auto) 0.1 % Immature Gran # (Auto) 0.07 H (0.00-0.02) K/uL Neut # (Auto) 8.54 H (1.4-6.5) K/uL Lymph # (Auto) 1.10 L (1.2-3.4) K/uL [place] # (Auto) 1.61 H (0.11-0.59) K/uL Eos # (Auto) 0.00 (0-0.5) K/uL Baso # (Auto) 0.01 (0-0.2) K/uL PT 11.3 (9.0-12.0) Seconds INR 1.1 (0.9-1.1) APTT 25.0 (21.0-31.0) Seconds PTT Ratio 0.9 ABG pH ABG pCO2 ABG pO2 ABG HCO3 ABG O2 Saturation ABG Base Excess Nirav Test VBG pH (7.36-7.41) VBG pCO2 (38-50) mmHg VBG pO2 mmHg VBG HCO3 mmol/L VBG O2 Saturation % VBG Base Excess mEq/L Barometric Pressure Oxygen Given Sodium (136-145) mmol/L Potassium (3.5-5.1) mmol/L Chloride (98-107) mmol/L Carbon Dioxide (21-32) mmol/L Anion Gap (3-11) BUN (7-18) mg/dl Creatinine (0.6-1.4) mg/dl Est Cr Clr Drug Dosing Est GFR ( Amer) Est GFR (Non-Af Amer) BUN/Creatinine Ratio (10-20) Glucose (70-99) mg/dl POC Glucose (70-99) Lactate (0.4-2.0) mmol/L Calcium (8.5-10.1) mg/dl Total Bilirubin (0.2-1) mg/dl AST (15-37) U/L ALT (12-78) U/L Alkaline Phosphatase (45-117) U/L Total Protein (6.4-8.2) gm/dl Albumin (3.4-5.0) gm/dl Globulin (2.5-4.0) gm/dl Albumin/Globulin Ratio (0.9-2) Urine Color Yellow Urine Appearance Clear (Clear) Urine pH 6.0 (4.5-7.5) Ur Specific [place] 1.023 (1.000-1.030) Urine Protein Trace H (Negative) Urine Glucose (UA) Negative (Negative) Urine Ketones Trace H (Negative) Urine Blood Negative (Negative) Urine Nitrite Negative (Negative) Urine Bilirubin Negative (Negative) Urine Urobilinogen Negative (Negative) Ur Leukocyte Esterase Negative (Negative) Urine WBC (Auto) 1-5 (0-5) /hpf Urine RBC (Auto) 0-4 (0-4) /hpf U Hyaline Cast (Auto) 1-5 (0-5) /lpf U Epithel Cells (Auto) 0-5 (0-5) /lpf Urine Bacteria (Auto) Negative (Negative) Nasal Screen MRSA (PCR) (Negative) Hepatitis C Ab Screen (Neg) Influenza Type A Ag (Neg) Influenza Type B Ag (Neg) 12/02/18 12/02/18 12/02/18 Range/Units 11:09 11:09 11:15 WBC (4.8-10.8) K/uL RBC (4.7-6.1) M/uL Hgb (14.0-18.0) g/dL Hct (42-52) % MCV (80-100) fL MCH (25-34) pg MCHC (32-36) g/dL RDW Std Deviation (36.4-46.3) fL RDW Coeff of Zainab (11.5-14.5) % Plt Count (130-400) K/uL MPV (7.4-10.4) fL Immature Gran % (Auto) % Neut % (Auto) % Lymph % (Auto) % [place] % (Auto) % Eos % (Auto) % Baso % (Auto) % Immature Gran # (Auto) (0.00-0.02) K/uL Neut # (Auto) (1.4-6.5) K/uL Lymph # (Auto) (1.2-3.4) K/uL [place] # (Auto) (0.11-0.59) K/uL Eos # (Auto) (0-0.5) K/uL Baso # (Auto) (0-0.2) K/uL PT (9.0-12.0) Seconds INR (0.9-1.1) APTT (21.0-31.0) Seconds PTT Ratio ABG pH ABG pCO2 ABG pO2 ABG HCO3 ABG O2 Saturation ABG Base Excess Nirav Test VBG pH (7.36-7.41) VBG pCO2 (38-50) mmHg VBG pO2 mmHg VBG HCO3 mmol/L VBG O2 Saturation % VBG Base Excess mEq/L Barometric Pressure Oxygen Given Sodium 133 L (136-145) mmol/L Potassium 3.4 L (3.5-5.1) mmol/L Chloride 96 L (98-107) mmol/L Carbon Dioxide 26 (21-32) mmol/L Anion Gap 10.0 (3-11) BUN 14 (7-18) mg/dl Creatinine 0.88 (0.6-1.4) mg/dl Est Cr Clr Drug Dosing Not Reportable Est GFR ( Amer) 99.5 Est GFR (Non-Af Amer) 85.8 BUN/Creatinine Ratio 16.0 (10-20) Glucose 161 H (70-99) mg/dl POC Glucose (70-99) Lactate 2.1 H* (0.4-2.0) mmol/L Calcium 8.9 (8.5-10.1) mg/dl Total Bilirubin 0.6 (0.2-1) mg/dl AST 18 (15-37) U/L ALT 36 (12-78) U/L Alkaline Phosphatase 33 L (45-117) U/L Total Protein 7.3 (6.4-8.2) gm/dl Albumin 3.8 (3.4-5.0) gm/dl Globulin 3.5 (2.5-4.0) gm/dl Albumin/Globulin Ratio 1.1 (0.9-2) Urine Color Urine Appearance (Clear) Urine pH (4.5-7.5) Ur Specific [place] (1.000-1.030) Urine Protein (Negative) Urine Glucose (UA) (Negative) Urine Ketones (Negative) Urine Blood (Negative) Urine Nitrite (Negative) Urine Bilirubin (Negative) Urine Urobilinogen (Negative) Ur Leukocyte Esterase (Negative) Urine WBC (Auto) (0-5) /hpf Urine RBC (Auto) (0-4) /hpf U Hyaline Cast (Auto) (0-5) /lpf U Epithel Cells (Auto) (0-5) /lpf Urine Bacteria (Auto) (Negative) Nasal Screen MRSA (PCR) (Negative) Hepatitis C Ab Screen Neg (Neg) Influenza Type A Ag (Neg) Influenza Type B Ag (Neg) 12/02/18 12/02/18 12/02/18 Range/Units 11:37 12:15 13:31 WBC (4.8-10.8) K/uL RBC (4.7-6.1) M/uL Hgb (14.0-18.0) g/dL Hct (42-52) % MCV (80-100) fL MCH (25-34) pg MCHC (32-36) g/dL RDW Std Deviation (36.4-46.3) fL RDW Coeff of Zainab (11.5-14.5) % Plt Count (130-400) K/uL MPV (7.4-10.4) fL Immature Gran % (Auto) % Neut % (Auto) % Lymph % (Auto) % [place] % (Auto) % Eos % (Auto) % Baso % (Auto) % Immature Gran # (Auto) (0.00-0.02) K/uL Neut # (Auto) (1.4-6.5) K/uL Lymph # (Auto) (1.2-3.4) K/uL [place] # (Auto) (0.11-0.59) K/uL Eos # (Auto) (0-0.5) K/uL Baso # (Auto) (0-0.2) K/uL PT (9.0-12.0) Seconds INR (0.9-1.1) APTT (21.0-31.0) Seconds PTT Ratio ABG pH Cancelled ABG pCO2 Cancelled ABG pO2 Cancelled ABG HCO3 Cancelled ABG O2 Saturation Cancelled ABG Base Excess Cancelled Nirav Test Cancelled VBG pH (7.36-7.41) VBG pCO2 (38-50) mmHg VBG pO2 mmHg VBG HCO3 mmol/L VBG O2 Saturation % VBG Base Excess mEq/L Barometric Pressure Cancelled Oxygen Given Cancelled Sodium (136-145) mmol/L Potassium (3.5-5.1) mmol/L Chloride (98-107) mmol/L Carbon Dioxide (21-32) mmol/L Anion Gap (3-11) BUN (7-18) mg/dl Creatinine (0.6-1.4) mg/dl Est Cr Clr Drug Dosing Est GFR ( Amer) Est GFR (Non-Af Amer) BUN/Creatinine Ratio (10-20) Glucose (70-99) mg/dl POC Glucose 159 H (70-99) Lactate (0.4-2.0) mmol/L Calcium (8.5-10.1) mg/dl Total Bilirubin (0.2-1) mg/dl AST (15-37) U/L ALT (12-78) U/L Alkaline Phosphatase (45-117) U/L Total Protein (6.4-8.2) gm/dl Albumin (3.4-5.0) gm/dl Globulin (2.5-4.0) gm/dl Albumin/Globulin Ratio (0.9-2) Urine Color Urine Appearance (Clear) Urine pH (4.5-7.5) Ur Specific [place] (1.000-1.030) Urine Protein (Negative) Urine Glucose (UA) (Negative) Urine Ketones (Negative) Urine Blood (Negative) Urine Nitrite (Negative) Urine Bilirubin (Negative) Urine Urobilinogen (Negative) Ur Leukocyte Esterase (Negative) Urine WBC (Auto) (0-5) /hpf Urine RBC (Auto) (0-4) /hpf U Hyaline Cast (Auto) (0-5) /lpf U Epithel Cells (Auto) (0-5) /lpf Urine Bacteria (Auto) (Negative) Nasal Screen MRSA (PCR) (Negative) Hepatitis C Ab Screen (Neg) Influenza Type A Ag Neg for Influ A (Neg) Influenza Type B Ag Neg for Influ B (Neg) 12/02/18 12/02/18 12/02/18 Range/Units 13:33 14:53 15:40 WBC (4.8-10.8) K/uL RBC (4.7-6.1) M/uL Hgb (14.0-18.0) g/dL Hct (42-52) % MCV (80-100) fL MCH (25-34) pg MCHC (32-36) g/dL RDW Std Deviation (36.4-46.3) fL RDW Coeff of Zainab (11.5-14.5) % Plt Count (130-400) K/uL MPV (7.4-10.4) fL Immature Gran % (Auto) % Neut % (Auto) % Lymph % (Auto) % [place] % (Auto) % Eos % (Auto) % Baso % (Auto) % Immature Gran # (Auto) (0.00-0.02) K/uL Neut # (Auto) (1.4-6.5) K/uL Lymph # (Auto) (1.2-3.4) K/uL [place] # (Auto) (0.11-0.59) K/uL Eos # (Auto) (0-0.5) K/uL Baso # (Auto) (0-0.2) K/uL PT (9.0-12.0) Seconds INR (0.9-1.1) APTT (21.0-31.0) Seconds PTT Ratio ABG pH ABG pCO2 ABG pO2 ABG HCO3 ABG O2 Saturation ABG Base Excess Nirav Test VBG pH 7.45 H (7.36-7.41) VBG pCO2 41 (38-50) mmHg VBG pO2 34 mmHg VBG HCO3 27 mmol/L VBG O2 Saturation 67.6 % VBG Base Excess 3.0 mEq/L Barometric Pressure Oxygen Given Sodium (136-145) mmol/L Potassium (3.5-5.1) mmol/L Chloride (98-107) mmol/L Carbon Dioxide (21-32) mmol/L Anion Gap (3-11) BUN (7-18) mg/dl Creatinine (0.6-1.4) mg/dl Est Cr Clr Drug Dosing Est GFR ( Amer) Est GFR (Non-Af Amer) BUN/Creatinine Ratio (10-20) Glucose (70-99) mg/dl POC Glucose (70-99) Lactate 2.5 H* (0.4-2.0) mmol/L Calcium (8.5-10.1) mg/dl Total Bilirubin (0.2-1) mg/dl AST (15-37) U/L ALT (12-78) U/L Alkaline Phosphatase (45-117) U/L Total Protein (6.4-8.2) gm/dl Albumin (3.4-5.0) gm/dl Globulin (2.5-4.0) gm/dl Albumin/Globulin Ratio (0.9-2) Urine Color Urine Appearance (Clear) Urine pH (4.5-7.5) Ur Specific [place] (1.000-1.030) Urine Protein (Negative) Urine Glucose (UA) (Negative) Urine Ketones (Negative) Urine Blood (Negative) Urine Nitrite (Negative) Urine Bilirubin (Negative) Urine Urobilinogen (Negative) Ur Leukocyte Esterase (Negative) Urine WBC (Auto) (0-5) /hpf Urine RBC (Auto) (0-4) /hpf U Hyaline Cast (Auto) (0-5) /lpf U Epithel Cells (Auto) (0-5) /lpf Urine Bacteria (Auto) (Negative) Nasal Screen MRSA (PCR) Negative (Negative) Hepatitis C Ab Screen (Neg) Influenza Type A Ag (Neg) Influenza Type B Ag (Neg) 12/02/18 Range/Units 16:12 WBC (4.8-10.8) K/uL RBC (4.7-6.1) M/uL Hgb (14.0-18.0) g/dL Hct (42-52) % MCV (80-100) fL MCH (25-34) pg MCHC (32-36) g/dL RDW Std Deviation (36.4-46.3) fL RDW Coeff of Zainab (11.5-14.5) % Plt Count (130-400) K/uL MPV (7.4-10.4) fL Immature Gran % (Auto) % Neut % (Auto) % Lymph % (Auto) % [place] % (Auto) % Eos % (Auto) % Baso % (Auto) % Immature Gran # (Auto) (0.00-0.02) K/uL Neut # (Auto) (1.4-6.5) K/uL Lymph # (Auto) (1.2-3.4) K/uL [place] # (Auto) (0.11-0.59) K/uL Eos # (Auto) (0-0.5) K/uL Baso # (Auto) (0-0.2) K/uL PT (9.0-12.0) Seconds INR (0.9-1.1) APTT (21.0-31.0) Seconds PTT Ratio ABG pH ABG pCO2 ABG pO2 ABG HCO3 ABG O2 Saturation ABG Base Excess Nirav Test VBG pH (7.36-7.41) VBG pCO2 (38-50) mmHg VBG pO2 mmHg VBG HCO3 mmol/L VBG O2 Saturation % VBG Base Excess mEq/L Barometric Pressure Oxygen Given Sodium (136-145) mmol/L Potassium (3.5-5.1) mmol/L Chloride (98-107) mmol/L Carbon Dioxide (21-32) mmol/L Anion Gap (3-11) BUN (7-18) mg/dl Creatinine (0.6-1.4) mg/dl Est Cr Clr Drug Dosing Est GFR ( Amer) Est GFR (Non-Af Amer) BUN/Creatinine Ratio (10-20) Glucose (70-99) mg/dl POC Glucose 132 H (70-99) Lactate (0.4-2.0) mmol/L Calcium (8.5-10.1) mg/dl Total Bilirubin (0.2-1) mg/dl AST (15-37) U/L ALT (12-78) U/L Alkaline Phosphatase (45-117) U/L Total Protein (6.4-8.2) gm/dl Albumin (3.4-5.0) gm/dl Globulin (2.5-4.0) gm/dl Albumin/Globulin Ratio (0.9-2) Urine Color Urine Appearance (Clear) Urine pH (4.5-7.5) Ur Specific [place] (1.000-1.030) Urine Protein (Negative) Urine Glucose (UA) (Negative) Urine Ketones (Negative) Urine Blood (Negative) Urine Nitrite (Negative) Urine Bilirubin (Negative) Urine Urobilinogen (Negative) Ur Leukocyte Esterase (Negative) Urine WBC (Auto) (0-5) /hpf Urine RBC (Auto) (0-4) /hpf U Hyaline Cast (Auto) (0-5) /lpf U Epithel Cells (Auto) (0-5) /lpf Urine Bacteria (Auto) (Negative) Nasal Screen MRSA (PCR) (Negative) Hepatitis C Ab Screen (Neg) Influenza Type A Ag (Neg) Influenza Type B Ag (Neg) Imaging Data Radiologist's Impression: Radiology results as stated below per my review and the radiologist's interpretation: XR chest 1V portable CLINICAL HISTORY: Sepsis COMPARISON STUDY: 12/22/2015 FINDINGS: The heart is enlarged. There are lower lobe airspace opacities, atelectatic versus pneumonia there is no failure. There are minor right basilar atelectatic changes. There are no significant pleural effusions. IMPRESSION: Interval development of left lower lung zone airspace opacities, pneumonia versus atelectasis. Clinical and radiographic follow-up is recommended. Electronically signed by: Sadi Becerra M.D. 12/02/2018 11:19 AM ECG Data Attestation: I personally reviewed and interpreted this ECG as follows: Indication: weakness Rate (beats per minute): 127 Rhythm: sinus tachycardia Findings: + other (normal axis); no PVC Blood Pressure Blood Pressure Findings: Elevated blood pressure Blood Pressure Disposition: further management by hospitalist ROSELINE Narrative Patient is a 73-year-old male who presents the ER for cough associate with congestion which is been present for the past 48 hours. Upon presentation he is found to be febrile and tachycardic with a heart rate in the 130s to 140s. On exam he has rhonchi bilateral bases. Labs were obtained and showed a mild leukocytosis of 11.3 thousand. No significant anemia. INR was unremarkable. VBG with a pH of 7.45. BMP was fairly unremarkable. Lactate was elevated 2.5. Bilirubin LFTs were normal. UA was negative. Influenza was negative. Chest x-ray with bilateral infiltrates. Patient was given IV Rocephin and Levaquin. He was given 2 L IV fluids. He was updated bedside. Discussed with the hospitalist and patient was minute for further work-up of sepsis secondary to pneumonia. Impression & Plan Sepsis, Pneumonia Critical Care Time I have personally spent 35 minutes of critical care time in the direct management of this patient. This includes bedside care, interpretation of diagnostic studies, and testing, discussion with consultants, patient, and family members, and other required patient management activities. This 35 minutes is in excess of all separately billable procedures. Critical Care Time: Yes Total Critical Care Time: 35 Discharge Plan Visit Data *Final* Discharge Date/Time: 12/02/18 13:22 Chief Complaint: Weakness Stated Complaint: WEAKNESS ED Provider: Elia Aguilera Discharge Problem: Sepsis, Pneumonia Patient Disposition: Admitted As Inpatient Discharge Instructions Interventions: ED Discharge Assessment Last Done: 12/02/18 13:22 The scribe's documentation has been prepared under my direction and personally reviewed by me in its entirety. I confirm that the note above accurately reflects all work, treatment, procedures, and medical decision making performed by me.
[2018-12-02] MEDS: ENOXAPARIN INJ 40 MG/0.4 ML SYR SQ SCH (18:22)
[2018-12-02] MEDS: INSULIN ASPART 100 UNITS/ML 3 ML PEN SC SCH ×2 (19:10→21:14)
[2018-12-02] MEDS: LEVALBUTEROL 1.25MG/0.5ML NEB INH SCH (19:10)
[2018-12-02] MEDS: IPRATROPIUM BROMIDE NEB SOLN 0.02% 2.5 ML VIAL INH SCH (19:10)
[2018-12-03] MEDS: methylPREDNISolone 40 MG in SYRINGE 0 ML IV SCH ×2 (00:20→07:36)
[2018-12-03] MEDS: IPRATROPIUM BROMIDE NEB SOLN 0.02% 2.5 ML VIAL INH SCH ×4 (01:43→19:40)
[2018-12-03] MEDS: LEVALBUTEROL 1.25MG/0.5ML NEB INH SCH ×4 (01:43→19:40)
[2018-12-03] MEDS: ACETAMINOPHEN 325 MG TAB PO PRN ×2 (01:57→17:10)
[2018-12-03] MEDS: SODIUM CHLORIDE 0.9% 1000ML 1,000 ML IV SCH ×2 (04:35→12:20)
[2018-12-03 05:50] LABS: Hematocrit (blood only) 36.5 % (42-52); Mean Corpuscular Hgb Conc 35.6 g/dL (32-36); Mean Corpuscular Volume 83.7 fL (80-100); Mean Platelet Volume 9.1 fL (7.4-10.4); Platelet Count 202 K/uL (130-400); RDW Coefficient of Variation 14.5 % (11.5-14.5); RDW Standard Deviation 44.8 fL (36.4-46.3); Red Blood Count 4.36 M/uL (4.7-6.1); White Blood Count 7.34 K/uL (4.8-10.8)
[2018-12-03] MEDS: LEVOTHYROXINE SODIUM 100 MCG TABLET PO SCH (05:51)
[2018-12-03 06:13] LABS: BUN Creatinine Ratio 14.3 (10-20); Calcium 7.9 mg/dl (8.5-10.1); Creatinine Clr Calc Pharmacy 83.7 ml/min; Est GFR (Non-African American) 93.2; Magnesium 1.8 mg/dl (1.8-2.4); Potassium 3.7 mmol/L (3.5-5.1)
[2018-12-03] MEDS: DOXAZosin MESYLATE TAB 2 MG TAB PO SCH (07:36)
[2018-12-03] MEDS: ATORVASTATIN 10 MG TAB PO SCH (07:36)
[2018-12-03] MEDS: PANTOprazole 40 MG TAB PO SCH (07:36)
[2018-12-03] MEDS: ASPIRIN 81 MG ECTAB PO SCH (07:36)
[2018-12-03] MEDS: MONTELUKAST SODIUM 10 MG TABLET PO SCH (07:36)
[2018-12-03] MEDS: AMLODIPINE BESYLATE 5 MG TAB PO SCH (07:36)
[2018-12-03] MEDS: FLUTICASONE PROPIONATE NA SPR 16 GM BTL SCH (07:37)
[2018-12-03] MEDS: INSULIN ASPART 100 UNITS/ML 3 ML PEN SC SCH ×4 (08:08→21:34)
[2018-12-03] MEDS ORDERED: LEVOFLOXACIN/D5W 750 MG/150 ML BAG IV SCH (12:00)
--- NOTE | 2018-12-03 18:29 | Hospitalist Progress Note ---
Date of Service December 03, 2018 Assessment & Plan (1) Pneumonia: (2) Sepsis: (3) Asthma, moderate persistent: Pneumonia CXR:Interval development of left lower lung zone airspace opacities, pneumonia versus atelectasis. Clinical and radiographic follow-up is recommended. Saturating well on room air Continue levofloxacin Day #2 in the ED, will continue with levofloxacin Received IVF Blood and sputum cultures: pending Influenza PCR negative Continue Solu-Medrol--Taper as able Continue home inhalers (4) HTN (hypertension): Stable continue amlodipine Resume HCTZ as able (5) DM type 2 (diabetes mellitus, type 2): Hgb A1c 5.6 07/2018 Hold oral agents Utilize NovoLog per protocol while hospitalized (6) Hypothyroidism: Continue levothyroxine (7) Dyslipidemia: Continue statin (8) BPH (benign prostatic hyperplasia): Continue doxazosin (9) DVT prophylaxis: SQ Lovenox Subjective Patient is seen and examined at bedside Feels a lot better today Cough improving Denies chest pain, shortness of breath, dizziness Family at bedside Offers no other complaints Review of Systems Review of Systems: All systems reviewed & are unremarkable except as noted in HPI & below Physical Exam Physical Exam: Physical Exam: Vitals signs as noted above General Appearance:Moderately built and nourished, no apparent distress Head: normocephalic, Atraumatic Eyes: normal inspection, EOMI, PERRL Neck: supple, Trachea midline Respiratory/Chest: Decreased breath sounds, Scattered wheezes, Cardiovascular: S1, S2, No murmur Abdomen/GI:Soft, Non tender, Bowel sounds present Extremities/Musculoskelatal:normal inspection, no edema Neurologic/Psych:AAOX3, grossly no focal neurological deficits Skin: normal color, warm Results & Data Vital Signs (Past 12 Hours) Vital Signs Temp Pulse Pulse Resp BP Pulse Ox 12/03/18 15:29 36.5 C 83 22 144/87 H 93 12/03/18 13:45 83 18 95 12/03/18 11:31 36.3 C L 81 18 148/89 H 95 12/03/18 07:30 78 12/03/18 07:29 36.5 C 77 20 156/93 H 94 12/03/18 06:55 83 18 95 Laboratory Results Short CBC 12/03/18 Range/Units 05:33 WBC 7.34 (4.8-10.8) K/uL Hgb 13.0 L (14.0-18.0) g/dL Hct 36.5 L (42-52) % Plt Count 202 (130-400) K/uL [facility] 12/03/18 05:33 Sodium 136 Potassium 3.7 Chloride 105 Carbon Dioxide 24 BUN 10 Creatinine 0.72 Glucose 165 H Calcium 7.9 L (1) Pneumonia Laterality: unspecified laterality Lung location: unspecified part of lung Pneumonia type: due to unspecified organism Qualified Code(s): J18.9 - Pneumonia, unspecified organism
[2018-12-03] MEDS: ENOXAPARIN INJ 40 MG/0.4 ML SYR SQ SCH (18:40)
[2018-12-04] MEDS: LEVALBUTEROL 1.25MG/0.5ML NEB INH SCH ×2 (01:29→07:12)
[2018-12-04] MEDS: IPRATROPIUM BROMIDE NEB SOLN 0.02% 2.5 ML VIAL INH SCH ×2 (01:29→07:12)
[2018-12-04] MEDS: ACETAMINOPHEN 325 MG TAB PO PRN (02:58)
[2018-12-04] MEDS: LEVOTHYROXINE SODIUM 100 MCG TABLET PO SCH (05:38)
[2018-12-04] MEDS: SODIUM CHLORIDE 0.9% 1000ML 1,000 ML IV SCH (06:25)
[2018-12-04 06:40] LABS: BUN Creatinine Ratio 15.5 (10-20); Calcium 8.5 mg/dl (8.5-10.1); Creatinine Clr Calc Pharmacy 78.3 ml/min; Est GFR (African American) 105.1; Est GFR (Non-African American) 90.7; Potassium 3.1 mmol/L (3.5-5.1)
[2018-12-04 06:46] LABS: Hematocrit (blood only) 36.4 % (42-52); Hemoglobin 13.2 g/dL (14.0-18.0); Mean Corpuscular Hgb Conc 36.3 g/dL (32-36); Mean Corpuscular Volume 83.3 fL (80-100); Mean Platelet Volume 9.3 fL (7.4-10.4); Platelet Count 251 K/uL (130-400); RDW Coefficient of Variation 14.6 % (11.5-14.5); RDW Standard Deviation 44.9 fL (36.4-46.3); Red Blood Count 4.37 M/uL (4.7-6.1); White Blood Count 7.91 K/uL (4.8-10.8)
[2018-12-04] MEDS: AMLODIPINE BESYLATE 5 MG TAB PO SCH (07:39)
[2018-12-04] MEDS: PANTOprazole 40 MG TAB PO SCH (07:39)
[2018-12-04] MEDS: ATORVASTATIN 10 MG TAB PO SCH (07:39)
[2018-12-04] MEDS: FLUTICASONE PROPIONATE NA SPR 16 GM BTL SCH (07:39)
[2018-12-04] MEDS: ASPIRIN 81 MG ECTAB PO SCH (07:40)
[2018-12-04] MEDS: DOXAZosin MESYLATE TAB 2 MG TAB PO SCH (07:40)
[2018-12-04] MEDS: MONTELUKAST SODIUM 10 MG TABLET PO SCH (07:40)
[2018-12-04] MEDS: INSULIN ASPART 100 UNITS/ML 3 ML PEN SC SCH ×2 (07:49→12:42)
[2018-12-04] MEDS ORDERED: POTASSIUM CHLORIDE 10 MEQ TABCR PO ONE (08:45)
[2018-12-04] MEDS ORDERED: methylPREDNISolone 40 MG in SYRINGE 0 ML IV SCH (09:00)
[2018-12-04] MEDS ORDERED: FLUTICASONE/VILANTEROL INHALER INH SCH (09:00)
--- NOTE | 2018-12-04 12:22 | Hospitalist Progress Note ---
Date of Service December 04, 2018 Assessment & Plan (1) Pneumonia: (2) Sepsis: (3) Asthma, moderate persistent: Pneumonia CXR:Interval development of left lower lung zone airspace opacities, pneumonia versus atelectasis. Clinical and radiographic follow-up is recommended. Saturating well on room air Continue levofloxacin Day #3 Received IVF Blood and sputum cultures: No growth to date Influenza PCR negative Continue Solu-Medrol--Taper to Prednisone Continue home inhalers (4) HTN (hypertension): Stable continue amlodipine Resume HCTZ (5) DM type 2 (diabetes mellitus, type 2): Hgb A1c 5.6 07/2018 Hold oral agents Utilize NovoLog per protocol while hospitalized (6) Hypothyroidism: Continue levothyroxine (7) Dyslipidemia: Continue statin (8) BPH (benign prostatic hyperplasia): Continue doxazosin (9) DVT prophylaxis: SQ Lovenox Subjective Patient is seen and examined at bedside Continues to improve Less cough Denies chest pain, shortness of breath, dizziness Offers no other complaints Plan to be discharged home today Review of Systems Review of Systems: All systems reviewed & are unremarkable except as noted in HPI & below Physical Exam Physical Exam: Physical Exam: Vitals signs as noted above General Appearance:Moderately built and nourished, no apparent distress Head: normocephalic, Atraumatic Eyes: normal inspection, EOMI, PERRL Neck: supple, Trachea midline Respiratory/Chest: Decreased breath sounds, CTA Cardiovascular: S1, S2, No murmur Abdomen/GI:Soft, Non tender, Bowel sounds present Extremities/Musculoskelatal:normal inspection, no edema Neurologic/Psych:AAOX3, grossly no focal neurological deficits Skin: normal color, warm Results & Data Vital Signs (Past 12 Hours) Vital Signs Temp Pulse Pulse Resp BP BP Pulse Ox 12/04/18 11:02 36.8 C 95 H 19 146/86 H 92 12/04/18 08:00 76 12/04/18 07:13 74 18 92 12/04/18 07:01 36.6 C 75 18 153/87 H 91 12/04/18 02:55 36.5 C 77 18 152/89 H 91 12/04/18 01:31 78 17 95 Laboratory Results Short CBC 12/04/18 Range/Units 05:35 WBC 7.91 (4.8-10.8) K/uL Hgb 13.2 L (14.0-18.0) g/dL Hct 36.4 L (42-52) % Plt Count 251 (130-400) K/uL [facility] 12/04/18 05:35 Sodium 136 Potassium 3.1 L D Chloride 105 Carbon Dioxide 25 BUN 12 Creatinine 0.77 Glucose 94 Calcium 8.5 (1) Pneumonia Laterality: unspecified laterality Lung location: unspecified part of lung Pneumonia type: due to unspecified organism Qualified Code(s): J18.9 - Pneumonia, unspecified organism
--- NOTE | 2018-12-04 12:34 | Discharge Summary ---
Date of Service December 04, 2018 Admission HPI Per Admitting Provider 73-year-old male who presents the ED with cough and shortness of breath. Patient reports his symptoms began yesterday. Patient with history of asthma with frequent exacerbations and pneumonia. Patient was most recent diagnosis of pneumonia on 10/02/2018. reports she had similar URI symptoms last week. Patient reports a persistent cough that is been productive for green sputum. He reports shortness of breath at rest as well as with minimal exertion. He begin a prednisone rescue kit yesterday. He reports some chest pain only with coughing. He did not take his temperature at home. He denies lightheadedness, dizziness, diaphoresis, syncopal events. No abdominal pain, nausea, vomiting, diarrhea. He denies any urinary symptoms. In the ED, patient was saturating in the low 90s, tachycardic in the 140s, febrile 37.8, tachypneic, WBC 11 K, lactic acid 2.1. CXR showing left basilar opacity consistent with pneumonia. Sepsis alert was called when patient arrived to the ED. He was given IVF, IV Levaquin, IV ceftriaxone, albuterol. Admission Exam Per Admitting Provider Constitutional: WD/WN, vitals as above + ill appearing Eyes: PERRL, conjunctivae normal, anicteric sclerae ENMT: external ear and nose normal, oropharynx normal Respiratory: + tachypneic; + abnormal respiratory effort and + not able to speak in complete sentence (Mild conversational dyspnea noted) Auscultation: + rhonchi (Bilateral, scattered throughout all lung barros) Cardiovascular: Rate/Rhythm: regular rhythm and + tachycardic Vessels: normal peripheral pulses Extremities: no edema Gastrointestinal (Abdomen): normal bowel sounds, soft, nontender, no hepatosplenomegaly Musculoskeletal: no cyanosis or clubbing, extremities motor strength 5/5 Skin: no rashes, warm and dry Neurologic: PERRL, EOMI, accommodation nl, no face palsy, no dysarthria Psychiatric: A+Ox3, euthymic affect Principal Diagnosis Discharge Information Discharge Diagnosis Pneumonia Asthma Exacerbation Discharge Goals Decrease discomfort,Improve disease control, Improve function Discharge Activity Limitations Resume your previous activity Discharge Data Allergies Allergy/AdvReac Type Severity Reaction Status Date / Time cat dander Allergy Unknown watery eyes Verified 12/02/18 11:58 No Known Drug Allergies Allergy Unknown . Verified 12/02/18 11:58 Consultations 12/02/18 12:25 ED Decision to Admit Stat Procedures Performed CXR: Interval development of left lower lung zone airspace opacities, pneumonia versus atelectasis. Clinical and radiographic follow-up is recommended. Hospital Course (1) Pneumonia: (2) Sepsis: (3) Asthma, moderate persistent: Pneumonia CXR:Interval development of left lower lung zone airspace opacities, pneumonia versus atelectasis. Clinical and radiographic follow-up is recommended. Saturating well on room air Continue levofloxacin Day #3 Received IVF Blood and sputum cultures: No growth to date Influenza PCR negative Continue Solu-Medrol--Taper to Prednisone Continue home inhalers (4) HTN (hypertension): Stable continue amlodipine Resume HCTZ (5) DM type 2 (diabetes mellitus, type 2): Hgb A1c 5.6 07/2018 Hold oral agents Utilize NovoLog per protocol while hospitalized (6) Hypothyroidism: Continue levothyroxine (7) Dyslipidemia: Continue statin (8) BPH (benign prostatic hyperplasia): Continue doxazosin (9) DVT prophylaxis: SQ Lovenox Total Time Total Time Spent Total Time Spent (In Minutes): 42 minutes Total Time Includes: Examination of the Patient, Discharge Planning, Medication Reconciliation and Other Discharge Plan Discharge Items Patient Disposition: Home - Self-Care Reason For Visit: PNEUMONIA, SEPSIS Discharge Diagnosis: Pneumonia Asthma Exacerbation Discharge Goals: Decrease discomfort, Improve disease control and Improve function Activity: Resume your previous activity Non-emergency contact: Primary Care Provider Call non-emergency contact if: you have any medication questions, your symptoms worsen, your pain is not controlled, your pain is worsening, your pain is unusual for you, your pain is concerning for you and you have a fever Follow-up/Referrals: Cynthia Temple MD [Primary Care Provider] - Diet: Carb Consistent or DM2 and Heart Healthy Addtl Provider Instructions: Follow up with your PCP on December 08, 2018 at 11:05AM Complete the antibiotic course and Prednisone Taper course as prescribed Seek immediate medical attention if your symptoms reoccur or worsen Prednisone Taper: Start taking 40mg daily for 2 days, then 30mg for 3 days, then 20mg 3 days, then 10mg for 3 days and STOP Prescriptions: New levofloxacin [Levaquin] 750 mg tablet 750 mg PO DAILY 4 Days Qty: 4 RF: 0 prednisone 10 mg tablet 10 mg PO UD 11 Days Qty: 26 RF: 0 Continued ipratropium-albuterol 0.5 mg-3 mg(2.5 mg base)/3 mL Solution For Nebulization 3 ml INHALATION Q4 PRN (Reason: Shortness Of Breath) Qty: 0 RF: 0 atorvastatin 10 mg Tablet 10 mg PO DAILY Qty: 0 RF: 0 aspirin [Aspirin Low Dose] 81 mg Tablet,Delayed Release (Dr/Ec) 81 mg PO DAILY Qty: 0 RF: 0 levothyroxine 100 mcg Tablet 100 mcg PO DAILY 90 Days Qty: 90 RF: 3 omeprazole 20 mg Capsule,Delayed Release(Dr/Ec) 20 mg PO DAILY Qty: 0 RF: 0 montelukast 10 mg Tablet 10 mg PO QAM Qty: 0 RF: 0 doxazosin 2 mg Tablet 2 mg PO DAILY Qty: 0 RF: 0 Spiriva with HandiHaler 18 mcg Capsule, W/Inhalation Device 1 cap Inhalation DAILY AFTERNOON Qty: 0 RF: 0 Breo Ellipta 200-25 mcg/dose Blister With Device 1 inh INHALATION DAILY Qty: 0 RF: 0 albuterol sulfate 90 mcg/actuation Hfa Aerosol Inhaler 2 puff INHALATION Q4H PRN (Reason: Shortness Of Breath) RF: 0 tadalafil [Cialis] 20 mg Tablet 20 mg PO DAILY PRN (Reason: OTHER) RF: 0 QNASL 40 mcg/actuation Hfa Aerosol Inhaler 2 inh intranasal DAILY RF: 0 Xolair 150 mg/mL Syringe 150 mg SUBCUT UD RF: 0 amlodipine 5 mg tablet 5 mg PO DAILY RF: 0 metformin 1,000 mg tablet 1,000 mg PO BID RF: 0 hydrochlorothiazide 12.5 mg capsule 12.5 mg PO DAILY RF: 0 mometasone 50 mcg/actuation spray,non-aerosol 2 spray intranasal DAILY RF: 0 Stand-Alone Forms: [facility] Discharge Orders: Discharge Order (Routine); Ordered 12/04/18 Ordered By: Luis Delgado Admission Data Admit Date/Time: 12/02/18 12:31 Attending Provider: Luis Delgado Admit Provider: Boston Honeycutt Primary Care Provider: Cynthia Temple Other Providers: Boston Honeycutt ; Jefferson Echevarria Service: Telemetry Other Interventions: Discharge Summary Assessment (RN) Last Done: 12/04/18 12:53 DC Date/Time DO NOT enter until pt leaves facility: 12/04/18 13:00
[2018-12-04] MEDS ORDERED: levoFLOXacin 750 MG TAB PO ONE (12:45)
== END 2018-12-04 13:00 | disposition home or self-care (01) | DRG 871 ==
LOC: ED 10:34 → 2S 12:31 → SUATTDRO 12:31 → 2S 13:22

== ENCOUNTER 2019-06-29 11:57 | Inpatient (IN) ==
--- NOTE | 2019-06-29 12:36 | Emergency Department Note ---
Entered by Donna Montgomery acting as a scribe for Rocky Sarmiento DO History of Present Illness General Chief complaint: Tachycardia Stated complaint: TACHYCARDIA Time Seen by Provider: 06/29/19 12:07 Source: patient History of Present Illness Provider complaint: Tachycardia Onset (ago): day(s) 1 Location: chest Maximum Pain Intensity: 8 Relieved By: + none Exacerbated By: + movement Associated symptoms: + denies other symptoms (Pedal edema), + headaches, + loss of appetite, + weakness and + other (Ear ache, back pain); no chest pain, no cough, no fever/chills, no nausea/vomiting and no shortness of breath The patient is a 73 year old male who presents to the Emergency Room with complaints of tachycardia that began yesterday. The patient was referred here by Dr. Temple for concern of sepsis. The patient states the symptoms are exacerbated by movement and not relieved by anything specific. The patient reports experiencing a headache and extreme weakness. Additionally, the patient reports experiencing loss of appetite, ear ache, and back pain. The patient denies experiencing any pedal edema, chest pain, cough, fever/chills, nausea/vomiting, or shortness of breath. The patient also denies any recent travel. Home Medications Home Medications Medication Instructions Recorded Confirmed Type albuterol sulfate 90 mcg/actuation 2 puff INHALATION Q4H PRN #6.7 gm 02/25/19 06/29/19 Rx aerosol inhaler amlodipine 5 mg tablet 5 mg PO DAILY #90 tab 02/25/19 06/29/19 Rx aspirin 81 mg tablet,delayed 81 mg PO DAILY #1 tab 02/25/19 06/29/19 Rx release atorvastatin 10 mg tablet 10 mg PO DAILY #90 tab 02/25/19 06/29/19 Rx beclomethasone dipropionate 40 2 inh INTRANASAL DAILY #6.8 gm 02/25/19 06/29/19 Rx mcg/actuation nasal HFA inhaler epinephrine 0.3 mg/0.3 mL 0.3 mg IM Q15M #1 ea 02/25/19 06/29/19 Rx injection, auto-injector fluticasone furoate 200 1 inh INHALATION DAILY #28 ea 02/25/19 06/29/19 Rx mcg-vilanterol 25 mcg/dose inhalation powder ipratropium-albuterol 0.5 mg-3 3 ml INHALATION Q4 PRN #1 puffs 02/25/19 06/29/19 Rx mg(2.5 mg base)/3 mL nebulization soln levothyroxine 100 mcg tablet 100 mcg PO DAILY 90 Days #90 tab 02/25/19 06/29/19 Rx metformin 1,000 mg tablet 1,000 mg PO BID #90 tab 02/25/19 06/29/19 Rx mometasone 50 mcg/actuation nasal 2 spray INTRANASAL DAILY #17 gm 02/25/19 06/29/19 Rx spray montelukast 10 mg tablet 10 mg PO QAM #90 tab 02/25/19 06/29/19 Rx omeprazole 20 mg capsule,delayed 20 mg PO DAILY #1 cap 02/25/19 06/29/19 Rx release tadalafil 20 mg tablet 20 mg PO DAILY PRN #90 tab 02/25/19 06/29/19 Rx tiotropium bromide 18 mcg capsule 1 cap INHALATION DAILY AFTERNOON 02/25/19 06/29/19 Rx with inhalation device #1 inhaler omalizumab 150 mg/mL subcutaneous 150 mg SUBCUT .COMPLEX #0 ml 03/19/19 06/29/19 Rx syringe azelastine 1 spray INTRANASAL BID 06/29/19 06/29/19 History budesonide [Pulmicort] 1 mg INHALATION DAILY 06/29/19 06/29/19 History cetirizine 10 mg PO DAILY PRN 06/29/19 06/29/19 History doxazosin 2 mg PO HS 06/29/19 06/29/19 History hydrochlorothiazide 12.5 mg PO DAILY 06/29/19 06/29/19 History Allergies Allergy/AdvReac Type Severity Reaction Status Date / Time cat dander Allergy Unknown watery eyes Verified 06/29/19 12:51 No Known Drug Allergies Allergy Unknown . Verified 06/29/19 12:51 Past Med/Surg History Medical History (Updated 06/29/19 @ 17:44 by Stephani Sharma PA-C) Allergic rhinitis (Chronic) Asthma, moderate persistent (Chronic) BPH (benign prostatic hyperplasia) (Chronic) DM type 2 (diabetes mellitus, type 2) (Chronic) Dyslipidemia (Chronic) Eosinophilic asthma (Chronic) HTN (hypertension) (Chronic) Hypothyroidism (Chronic) PHILLIP on CPAP Surgical History (Updated 06/29/19 @ 15:48 by Stephani Sharma PA-C) History of colonoscopy History of shoulder surgery left History of tonsillectomy Family History Mother Diabetes Father Diabetes Emphysema of lung Sister Diabetes Social History Preferred Language: Sinhala Communication Ability: Effective Tipple Operator Required: Yes Beliefs That Will Affect Care: None marital status: Current Living Situation: Spouse current occupational status: retired Other Information That Helps Us Care for You: No Feels Safe at Home: Yes Safety Concerns: Feels Safe At This Time Smoking Status: Never smoker Do You Dip or Chew Tobacco: No ; Second Hand Exposure: No ; Tobacco Cessation Education Requested by Patient: No Hx Alcohol Use: No Hx Substance Use: No Review of Systems See HPI for pertinent positives & negatives. and A total of 10 systems reviewed and were otherwise negative Physical Exam Vital Signs Vital Signs - 24 hr 06/29/19 11:58 06/29/19 12:07 06/29/19 12:17 Temperature 37.4 C Temperature Source Oral Pulse Rate 133 H 123 H Pulse Rate [Apical] Pulse Rate from SpO2 Sensor 106 H Pulse Rhythm [Apical] Pulse Strength [Apical] Respiratory Rate 20 30 H Respiratory Effort / Characteristics Non-Labored Respiratory Depth Normal Respiratory Pattern Blood Pressure 149/89 H 133/105 H Blood Pressure [Left Arm] Blood Pressure Mean 109 114 Blood Pressure Mean [Left Arm] Blood Pressure Position Sitting Pulse Oximetry 90 90 95 Oxygen Delivery Method Room Air Nasal Cannula Oxygen Flow Rate Sepsis Recent Fever Within 48 Hours Yes Sepsis New/Unexplained Change in Mental Status Yes Sepsis Action Taken by Nursing No Action Required Oxygen Flow Rate - Titration 2 Pulse Oximetry Post Tiitration 93 06/29/19 12:19 06/29/19 12:30 06/29/19 12:38 Temperature Temperature Source Pulse Rate 118 H 116 H 120 H Pulse Rate [Apical] Pulse Rate from SpO2 Sensor 112 H 107 H 117 H Pulse Rhythm [Apical] Pulse Strength [Apical] Respiratory Rate 27 H 24 19 Respiratory Effort / Characteristics Respiratory Depth Respiratory Pattern Blood Pressure 146/94 H Blood Pressure [Left Arm] Blood Pressure Mean 103 Blood Pressure Mean [Left Arm] Blood Pressure Position Pulse Oximetry 94 94 94 Oxygen Delivery Method Oxygen Flow Rate Sepsis Recent Fever Within 48 Hours Sepsis New/Unexplained Change in Mental Status Sepsis Action Taken by Nursing Oxygen Flow Rate - Titration Pulse Oximetry Post Tiitration 06/29/19 13:00 06/29/19 13:30 06/29/19 14:30 Temperature Temperature Source Pulse Rate 118 H Pulse Rate [Apical] 125 H 117 H Pulse Rate from SpO2 Sensor 119 H Pulse Rhythm [Apical] Regular Regular Pulse Strength [Apical] Normal Respiratory Rate 24 20 20 Respiratory Effort / Characteristics Spontaneous Non-Labored Spontaneous Respiratory Depth Normal Respiratory Pattern Regular Regular Blood Pressure 155/102 H Blood Pressure [Left Arm] 147/88 H 151/89 H Blood Pressure Mean 110 Blood Pressure Mean [Left Arm] 107 109 Blood Pressure Position Pulse Oximetry 93 94 95 Oxygen Delivery Method Nasal Cannula Nasal Cannula Nasal Cannula Oxygen Flow Rate 2 2 2 Sepsis Recent Fever Within 48 Hours Sepsis New/Unexplained Change in Mental Status Sepsis Action Taken by Nursing Oxygen Flow Rate - Titration Pulse Oximetry Post Tiitration GENERAL: The patient is awake and alert. He is somewhat anxious appearing. EYES: The conjunctivae are clear. The pupils are round and reactive. EARS, NOSE, MOUTH AND THROAT: The nose is without any evidence of any deformity. Mucous membranes are moist tongue is midline NECK: The neck is nontender and supple. RESPIRATORY: Diminished breath sounds are noted throughout. There are rales noted throughout. Shallow respirations were noted. CARDIOVASCULAR: Tachycardic rate with regular rhythm was noted. No definite murmur could be noted to auscultation. GASTROINTESTINAL: The abdomen is soft. Abdomen is nontender. BACK: No midline tenderness or or step-off noted range of motion in flexion extension as well as rotation no signs of muscle spasm noted MUSCULOSKELETAL/EXTREMITIES: There is no evidence of gross deformity full range of motion is noted in the hips and shoulders SKIN: There is no obvious evidence of any rash. Trace pedal edema was noted. There was no calf tenderness. NEUROLOGIC: Patient is awake and oriented to person place and situation. He is slow to answer questions but appears appropriate. There is no facial droop noted. Course Course 1208: Past medical records reviewed. The patient was evaluated in room B02. A complete history and physical exam was performed. 1335: I spoke with Stephani Webber PA-C about the patient's case and Dr. Dias- Hospitalist will accept the patient for further evaluation. Administered Medications Acetaminophen (Tylenol) 650 mg PO Q4H PRN PRN Reason: Pain or Fever Stop: 07/29/19 15:51 Last Admin: 06/29/19 17:07 Dose: 650 mg Documented by: [id number] Budesonide (Pulmicort Respules) 0.5 mg INH BIDR [facility] Stop: 07/29/19 18:59 Last Admin: 06/29/19 19:26 Dose: 0.5 mg Documented by: [id number] Doxycycline Hyclate (Vibramycin) 100 mg PO DAILY@0600,1800 [facility] Stop: 07/06/19 15:59 Last Admin: 06/29/19 16:12 Dose: 100 mg Documented by: [id number] Sodium Chloride (Nss 1000ml) 1,000 mls @ 200 mls/hr IV .Q5H [facility] Stop: 06/29/19 20:59 Last Admin: 06/29/19 16:01 Dose: 200 mls/hr Documented by: [id number] Piperacillin Sod/Tazobactam (Sod 3.375 gm/ Dextrose) 115 mls @ 28.75 mls/hr IV Q8H [facility]; Protocol Stop: 07/06/19 17:59 Last Admin: 06/29/19 17:05 Dose: 28.8 mls/hr Documented by: [id number] Insulin Aspart (Novolog Flexpen) 0 units SC ACHS [facility] Stop: 07/29/19 16:29 Last Admin: 06/29/19 17:42 Dose: Not Given Documented by: [id number] Cosigned by: [id number] Discontinued Medications Acetaminophen (Tylenol) 1,000 mg PO NOW STA Stop: 06/29/19 13:19 Last Admin: 06/29/19 13:26 Dose: 1,000 mg Documented by: [id number] Piperacillin Sod/Tazobactam Sod (Zosyn) 4.5 gm in 120 mls @ 240 mls/hr IV NOW ONE Stop: 06/29/19 13:48 Last Infusion: 06/29/19 14:10 Dose: 0 mls/hr Documented by: [id number] Admin: 06/29/19 13:26 Dose: 240 mls/hr Documented by: [id number] Medical Decision Making Differential Diagnosis Differential diagnosis: Etiologies such as infections, reactive airway disease, COPD, pneumonia, pleural effusion, pulmonary edema, ARDS, pneumothorax, CHF, cardiac ischemia, cardiac tamponade, dysrhythmia, anemia, pulmonary embolism, musculoskeletal, gastrointestinal process, as well as others were entertained. Medical Records Attestation: I reviewed the patient's medical records. Home Medications Current Medication List: was personally reviewed by me Laboratory Data Attestation: I reviewed the patient's lab results. Result diagrams: 06/29/19 12:34 06/29/19 12:34 Lab Results 06/29/19 06/29/19 06/29/19 Range/Units 12:34 12:34 12:34 WBC 18.85 H (4.8-10.8) K/uL RBC 5.02 (4.7-6.1) M/uL Hgb 15.8 (14.0-18.0) g/dL Hct 43.9 (42-52) % MCV 87.5 (80-100) fL MCH 31.5 (25-34) pg MCHC 36.0 (32-36) g/dL RDW Std Deviation 44.8 (36.4-46.3) fL RDW Coeff of Zainab 13.9 (11.5-14.5) % Plt Count 265 (130-400) K/uL MPV 9.4 (7.4-10.4) fL Immature Gran % (Auto) 0.3 % Neut % (Auto) 83.7 % Lymph % (Auto) 7.5 % [place] % (Auto) 8.4 % Eos % (Auto) 0.0 % Baso % (Auto) 0.1 % Immature Gran # (Auto) 0.06 H (0.00-0.02) K/uL Neut # (Auto) 15.77 H (1.4-6.5) K/uL Lymph # (Auto) 1.42 (1.2-3.4) K/uL [place] # (Auto) 1.58 H (0.11-0.59) K/uL Eos # (Auto) 0.00 (0-0.5) K/uL Baso # (Auto) 0.02 (0-0.2) K/uL ESR (0-14) mm/hr PT 11.3 (9.0-12.0) Seconds INR 1.1 (0.9-1.1) APTT 25.9 (21.0-31.0) Seconds PTT Ratio 1.0 D-Dimer 420 (0-500) ug/L FEU VBG pH (7.36-7.41) VBG pCO2 (38-50) mmHg VBG pO2 mmHg VBG HCO3 mmol/L VBG O2 Saturation % VBG Base Excess mEq/L Barometric Pressure mm/Hg Sodium 135 L (136-145) mmol/L Potassium 3.4 L (3.5-5.1) mmol/L Chloride 100 (98-107) mmol/L Carbon Dioxide 27 (21-32) mmol/L Anion Gap 8.0 (3-11) BUN 13 (7-18) mg/dl Creatinine 0.86 (0.6-1.4) mg/dl Est Cr Clr Drug Dosing Not Reportable Est GFR ( Amer) 100.4 Est GFR (Non-Af Amer) 86.6 BUN/Creatinine Ratio 15.6 (10-20) Glucose 161 H (70-99) mg/dl Lactate (0.4-2.0) mmol/L Calcium 9.6 (8.5-10.1) mg/dl Total Bilirubin 0.7 (0.2-1) mg/dl AST 12 L (15-37) U/L ALT 32 (12-78) U/L Alkaline Phosphatase 37 L (45-117) U/L Troponin I 0.154 H* (0-0.045) ng/ml C-Reactive Protein 15.80 H (0-0.29) mg/dl Total Protein 8.1 (6.4-8.2) gm/dl Albumin 4.1 (3.4-5.0) gm/dl Globulin 4.0 (2.5-4.0) gm/dl Albumin/Globulin Ratio 1.0 (0.9-2) Procalcitonin (0-0.5) ng/ml TSH 0.456 (0.300-4.500) uIu/ml Urine Color Urine Appearance (Clear) Urine pH (4.5-7.5) Ur Specific [place] (1.000-1.030) Urine Protein (Negative) Urine Glucose (UA) (Negative) Urine Ketones (Negative) Urine Blood (Negative) Urine Nitrite (Negative) Urine Bilirubin (Negative) Urine Urobilinogen (Negative) Ur Leukocyte Esterase (Negative) Urine WBC (Auto) (0-5) /hpf Urine RBC (Auto) (0-4) /hpf U Hyaline Cast (Auto) (0-5) /lpf U Epithel Cells (Auto) (0-5) /lpf Urine Bacteria (Auto) (Negative) Influenza Type A (PCR) (Neg) Influenza Type B (PCR) (Neg) 06/29/19 06/29/19 06/29/19 Range/Units 12:34 12:34 12:34 WBC (4.8-10.8) K/uL RBC (4.7-6.1) M/uL Hgb (14.0-18.0) g/dL Hct (42-52) % MCV (80-100) fL MCH (25-34) pg MCHC (32-36) g/dL RDW Std Deviation (36.4-46.3) fL RDW Coeff of Zainab (11.5-14.5) % Plt Count (130-400) K/uL MPV (7.4-10.4) fL Immature Gran % (Auto) % Neut % (Auto) % Lymph % (Auto) % [place] % (Auto) % Eos % (Auto) % Baso % (Auto) % Immature Gran # (Auto) (0.00-0.02) K/uL Neut # (Auto) (1.4-6.5) K/uL Lymph # (Auto) (1.2-3.4) K/uL [place] # (Auto) (0.11-0.59) K/uL Eos # (Auto) (0-0.5) K/uL Baso # (Auto) (0-0.2) K/uL ESR 42 H (0-14) mm/hr PT (9.0-12.0) Seconds INR (0.9-1.1) APTT (21.0-31.0) Seconds PTT Ratio D-Dimer (0-500) ug/L FEU VBG pH (7.36-7.41) VBG pCO2 (38-50) mmHg VBG pO2 mmHg VBG HCO3 mmol/L VBG O2 Saturation % VBG Base Excess mEq/L Barometric Pressure mm/Hg Sodium (136-145) mmol/L Potassium (3.5-5.1) mmol/L Chloride (98-107) mmol/L Carbon Dioxide (21-32) mmol/L Anion Gap (3-11) BUN (7-18) mg/dl Creatinine (0.6-1.4) mg/dl Est Cr Clr Drug Dosing Est GFR ( Amer) Est GFR (Non-Af Amer) BUN/Creatinine Ratio (10-20) Glucose (70-99) mg/dl Lactate 1.4 (0.4-2.0) mmol/L Calcium (8.5-10.1) mg/dl Total Bilirubin (0.2-1) mg/dl AST (15-37) U/L ALT (12-78) U/L Alkaline Phosphatase (45-117) U/L Troponin I (0-0.045) ng/ml C-Reactive Protein (0-0.29) mg/dl Total Protein (6.4-8.2) gm/dl Albumin (3.4-5.0) gm/dl Globulin (2.5-4.0) gm/dl Albumin/Globulin Ratio (0.9-2) Procalcitonin 0.29 (0-0.5) ng/ml TSH (0.300-4.500) uIu/ml Urine Color Urine Appearance (Clear) Urine pH (4.5-7.5) Ur Specific [place] (1.000-1.030) Urine Protein (Negative) Urine Glucose (UA) (Negative) Urine Ketones (Negative) Urine Blood (Negative) Urine Nitrite (Negative) Urine Bilirubin (Negative) Urine Urobilinogen (Negative) Ur Leukocyte Esterase (Negative) Urine WBC (Auto) (0-5) /hpf Urine RBC (Auto) (0-4) /hpf U Hyaline Cast (Auto) (0-5) /lpf U Epithel Cells (Auto) (0-5) /lpf Urine Bacteria (Auto) (Negative) Influenza Type A (PCR) (Neg) Influenza Type B (PCR) (Neg) 06/29/19 06/29/19 06/29/19 Range/Units 12:34 12:40 12:49 WBC (4.8-10.8) K/uL RBC (4.7-6.1) M/uL Hgb (14.0-18.0) g/dL Hct (42-52) % MCV (80-100) fL MCH (25-34) pg MCHC (32-36) g/dL RDW Std Deviation (36.4-46.3) fL RDW Coeff of Zainab (11.5-14.5) % Plt Count (130-400) K/uL MPV (7.4-10.4) fL Immature Gran % (Auto) % Neut % (Auto) % Lymph % (Auto) % [place] % (Auto) % Eos % (Auto) % Baso % (Auto) % Immature Gran # (Auto) (0.00-0.02) K/uL Neut # (Auto) (1.4-6.5) K/uL Lymph # (Auto) (1.2-3.4) K/uL [place] # (Auto) (0.11-0.59) K/uL Eos # (Auto) (0-0.5) K/uL Baso # (Auto) (0-0.2) K/uL ESR (0-14) mm/hr PT (9.0-12.0) Seconds INR (0.9-1.1) APTT (21.0-31.0) Seconds PTT Ratio D-Dimer (0-500) ug/L FEU VBG pH 7.51 H (7.36-7.41) VBG pCO2 33 L (38-50) mmHg VBG pO2 37 mmHg VBG HCO3 26 mmol/L VBG O2 Saturation 76.0 % VBG Base Excess 3.5 mEq/L Barometric Pressure 724.3 mm/Hg Sodium (136-145) mmol/L Potassium (3.5-5.1) mmol/L Chloride (98-107) mmol/L Carbon Dioxide (21-32) mmol/L Anion Gap (3-11) BUN (7-18) mg/dl Creatinine (0.6-1.4) mg/dl Est Cr Clr Drug Dosing Est GFR ( Amer) Est GFR (Non-Af Amer) BUN/Creatinine Ratio (10-20) Glucose (70-99) mg/dl Lactate (0.4-2.0) mmol/L Calcium (8.5-10.1) mg/dl Total Bilirubin (0.2-1) mg/dl AST (15-37) U/L ALT (12-78) U/L Alkaline Phosphatase (45-117) U/L Troponin I Cancelled (0-0.045) ng/ml C-Reactive Protein Cancelled (0-0.29) mg/dl Total Protein (6.4-8.2) gm/dl Albumin (3.4-5.0) gm/dl Globulin (2.5-4.0) gm/dl Albumin/Globulin Ratio (0.9-2) Procalcitonin (0-0.5) ng/ml TSH (0.300-4.500) uIu/ml Urine Color Urine Appearance (Clear) Urine pH (4.5-7.5) Ur Specific [place] (1.000-1.030) Urine Protein (Negative) Urine Glucose (UA) (Negative) Urine Ketones (Negative) Urine Blood (Negative) Urine Nitrite (Negative) Urine Bilirubin (Negative) Urine Urobilinogen (Negative) Ur Leukocyte Esterase (Negative) Urine WBC (Auto) (0-5) /hpf Urine RBC (Auto) (0-4) /hpf U Hyaline Cast (Auto) (0-5) /lpf U Epithel Cells (Auto) (0-5) /lpf Urine Bacteria (Auto) (Negative) Influenza Type A (PCR) Neg for Influ A (Neg) Influenza Type B (PCR) Neg for Influ B (Neg) 06/29/19 06/29/19 Range/Units 13:25 13:51 WBC (4.8-10.8) K/uL RBC (4.7-6.1) M/uL Hgb (14.0-18.0) g/dL Hct (42-52) % MCV (80-100) fL MCH (25-34) pg MCHC (32-36) g/dL RDW Std Deviation (36.4-46.3) fL RDW Coeff of Zainab (11.5-14.5) % Plt Count (130-400) K/uL MPV (7.4-10.4) fL Immature Gran % (Auto) % Neut % (Auto) % Lymph % (Auto) % [place] % (Auto) % Eos % (Auto) % Baso % (Auto) % Immature Gran # (Auto) (0.00-0.02) K/uL Neut # (Auto) (1.4-6.5) K/uL Lymph # (Auto) (1.2-3.4) K/uL [place] # (Auto) (0.11-0.59) K/uL Eos # (Auto) (0-0.5) K/uL Baso # (Auto) (0-0.2) K/uL ESR (0-14) mm/hr PT (9.0-12.0) Seconds INR (0.9-1.1) APTT (21.0-31.0) Seconds PTT Ratio D-Dimer (0-500) ug/L FEU VBG pH (7.36-7.41) VBG pCO2 (38-50) mmHg VBG pO2 mmHg VBG HCO3 mmol/L VBG O2 Saturation % VBG Base Excess mEq/L Barometric Pressure mm/Hg Sodium (136-145) mmol/L Potassium (3.5-5.1) mmol/L Chloride (98-107) mmol/L Carbon Dioxide (21-32) mmol/L Anion Gap (3-11) BUN (7-18) mg/dl Creatinine (0.6-1.4) mg/dl Est Cr Clr Drug Dosing Est GFR ( Amer) Est GFR (Non-Af Amer) BUN/Creatinine Ratio (10-20) Glucose (70-99) mg/dl Lactate (0.4-2.0) mmol/L Calcium (8.5-10.1) mg/dl Total Bilirubin (0.2-1) mg/dl AST (15-37) U/L ALT (12-78) U/L Alkaline Phosphatase (45-117) U/L Troponin I 0.235 H* (0-0.045) ng/ml C-Reactive Protein (0-0.29) mg/dl Total Protein (6.4-8.2) gm/dl Albumin (3.4-5.0) gm/dl Globulin (2.5-4.0) gm/dl Albumin/Globulin Ratio (0.9-2) Procalcitonin (0-0.5) ng/ml TSH (0.300-4.500) uIu/ml Urine Color Dark Yellow Urine Appearance Clear (Clear) Urine pH 8.0 H (4.5-7.5) Ur Specific [place] 1.023 (1.000-1.030) Urine Protein Negative (Negative) Urine Glucose (UA) Negative (Negative) Urine Ketones Trace H (Negative) Urine Blood Negative (Negative) Urine Nitrite Negative (Negative) Urine Bilirubin Negative (Negative) Urine Urobilinogen Negative (Negative) Ur Leukocyte Esterase Trace H (Negative) Urine WBC (Auto) 5-10 H (0-5) /hpf Urine RBC (Auto) 0-4 (0-4) /hpf U Hyaline Cast (Auto) 1-5 (0-5) /lpf U Epithel Cells (Auto) 10-20 H (0-5) /lpf Urine Bacteria (Auto) Negative (Negative) Influenza Type A (PCR) (Neg) Influenza Type B (PCR) (Neg) Imaging Data Radiologist's Impression: Radiology results as stated below per my review and the radiologist's interpretation: SINGLE VIEW CHEST CLINICAL HISTORY: Sepsis. FINDINGS: 2 AP, portable, upright chest radiographs are compared to study dated 12/02/2018 and 12/22/2015. The examination is degraded by portable technique and patient rotation. The heart is enlarged noting atherosclerotic calcification of the thoracic aorta. There is mild pulmonary vascular congestion. There is chronic elevation of the right hemidiaphragm and bibasilar atelectasis. No large pleural effusion is identified. No pneumothorax is seen. The skeletal structures are osteopenic. The bony thorax is grossly intact. IMPRESSION: 1. Cardiomegaly with mild pulmonary vascular congestion. 2. No airspace consolidation or large pleural effusion is identified. Electronically signed by: Hal Cruz M.D. 06/29/2019 1:00 PM ECG Data Attestation: I personally reviewed and interpreted this ECG as follows: Indication: + tachycardia Rate (beats per minute): 122 Rhythm: + sinus tachycardia ECG ST segments: + Normal ST segments ECG Findings: + PACs Comparison ECG Date: from (12/02/18) Change: no significant change Blood Pressure Blood Pressure Findings: Elevated blood pressure Blood Pressure Disposition: further management by hospitalist [facility] Narrative The patient is a 73-year-old male who presented to the emergency department directly from his primary care physician's office for an evaluation of difficulty breathing. The patient does have a history of breathing problems chronically. He was found to have hypoxia and low-grade fever in the emergency department. His history and physical exam do appear to be consistent with a pulmonary infection. He was found to have no definite infiltrate on chest x-ray however given his elevated white blood cell count and lung findings I did start the patient on a course of IV antibiotics. He was also placed on supplemental oxygen. His oxygen saturation was much more acceptable after supplemental oxygen. He was reevaluated multiple times. I discussed patient's laboratory and radiographic studies with him. I also discussed his case with the on-call [facility] hospitalist group. They have agreed to evaluate the patient in the emergency department for further management and disposition. Impression & Plan Pneumonia, Sinus tachycardia, Hypoxia Discharge Plan Visit Data *Final* Discharge Date/Time: 06/29/19 15:24 Chief Complaint: Tachycardia Stated Complaint: TACHYCARDIA ED Provider: Rocky Sarmiento Discharge Problem: Pneumonia, Sinus tachycardia, Hypoxia Patient Disposition: Admitted As Inpatient Discharge Instructions Interventions: ED Discharge Assessment Last Done: 06/29/19 15:24 The scribe's documentation has been prepared under my direction and personally reviewed by me in its entirety. I confirm that the note above accurately reflects all work, treatment, procedures, and medical decision making performed by me.
[2019-06-29 12:52] LABS: Basophils # (auto) 0.02 K/uL (0-0.2); Basophils % (auto) 0.1 %; Hematocrit (blood only) 43.9 % (42-52); Hemoglobin 15.8 g/dL (14.0-18.0); Immature Granulocytes # (auto) 0.06 K/uL (0.00-0.02); Immature Granulocytes % (auto) 0.3 %; Lymphocytes # (auto) 1.42 K/uL (1.2-3.4); Lymphocytes % (auto) 7.5 %; Mean Corpuscular Hemoglobin 31.5 pg (25-34); Mean Corpuscular Volume 87.5 fL (80-100); Mean Platelet Volume 9.4 fL (7.4-10.4); Monocytes # (auto) 1.58 K/uL (0.11-0.59); Monocytes % (auto) 8.4 %; Neutrophils # (auto) 15.77 K/uL (1.4-6.5); Neutrophils % (auto) 83.7 %; Platelet Count 265 K/uL (130-400); RDW Coefficient of Variation 13.9 % (11.5-14.5); RDW Standard Deviation 44.8 fL (36.4-46.3); Red Blood Count 5.02 M/uL (4.7-6.1); White Blood Count 18.85 K/uL (4.8-10.8)
--- NOTE | 2019-06-29 13:01 | XRay Report ---
SINGLE VIEW CHEST CLINICAL HISTORY: Sepsis. FINDINGS: 2 AP, portable, upright chest radiographs are compared to study dated 12/02/2018 and 6. The examination is degraded by portable technique and patient rotation. The heart is enlarged noti ng atherosclerotic calcification of the thoracic aorta. There is mild pulmonary vascular congestion. There is chronic elevation of the right hemidiaphragm and bibasilar atelectasis. No large pleural eff usion is identified. No pneumothorax is seen. The skeletal structures are osteopenic. The bony thorax is grossly intact. IMPRESSION: 1. Cardiomegaly with mild pulmonary vascular congestion. 2. No airspace consolidation or large pleural effusion is identified. Electronically signed by: Hal Cruz M.D. 06/29/2019 1:00 PM
[2019-06-29 13:02] LABS: D Dimer 420 ug/L FEU (0-500); INR 1.1 (0.9-1.1); Partial Thromboplastin Time 25.9 Seconds (21.0-31.0); Prothrombin Time 11.3 Seconds (9.0-12.0)
[2019-06-29 13:05] LABS: Alanine Aminotransferase 32 U/L (12-78); Albumin Level 4.1 gm/dl (3.4-5.0); Aspartate Aminotransferase 12 U/L (15-37); BUN Creatinine Ratio 15.6 (10-20); Blood Urea Nitrogen 13 mg/dl (7-18); Calcium 9.6 mg/dl (8.5-10.1); Carbon Dioxide 27 mmol/L (21-32); Chloride 100 mmol/L (98-107); Est GFR (African American) 100.4; Est GFR (Non-African American) 86.6; Glucose 161 mg/dl (70-99); Potassium 3.4 mmol/L (3.5-5.1); Sodium 135 mmol/L (136-145)
[2019-06-29 13:06] LABS: Base Excess VBG 3.5 mEq/L; pH VBG 7.51 (7.36-7.41)
[2019-06-29] MEDS ORDERED: ACETAMINOPHEN 500 MG TAB PO STA (13:18)
[2019-06-29] MEDS ORDERED: PIPERACILLIN/TAZOBACTAM 4.5 GM/120 ML BAG IV ONE (13:19)
[2019-06-29] MEDS ORDERED: PIPERACILL/TAZOBAC CONSULT ACTIVE PRN (13:19)
[2019-06-29 13:30] LABS: Influenza A virus by PCR Neg for Influ A (Neg); Influenza B virus by PCR Neg for Influ B (Neg)
[2019-06-29 13:48] LABS: Alkaline Phosphatase 37 U/L (45-117); Bilirubin,Total 0.7 mg/dl (0.2-1); Thyroid Stimulating Hormone 0.456 uIu/ml (0.300-4.500); Total Protein 8.1 gm/dl (6.4-8.2)
[2019-06-29 13:51] LABS: Troponin I 0.154 ng/ml (0-0.045)
[2019-06-29 13:57] LABS: Appearance Urine Clear (Clear); Bacteria Urine Automated Negative (Negative); Bilirubin Urine Negative (Negative); Blood Urine Negative (Negative); Color Urine Dark Yellow; Glucose Urine UA Negative (Negative); Ketones Urine Trace (Negative); Leukocyte Esterase Urine Trace (Negative); Nitrite Urine Negative (Negative); RBC Urine Automated 0-4 /hpf (0-4); Specific Gravity Urine 1.023 (1.000-1.030); Urobilinogen Urine Negative (Negative)
[2019-06-29 14:01] LABS: Protein Urine Negative (Negative); Sulfosalicylic Acid Urine Negative (Negative)
--- NOTE | 2019-06-29 14:28 | History & Physical Report ---
Date of Service June 29, 2019 Assessment & Plan (1) Sepsis: This is a 73-year-old male with a PMH of moderate persistent eosinophilic asthma, allergic rhinitis, PHILLIP on CPAP, DM II, HTN, hypothyroidism and other medical problems listed below who presents with weakness and headache x 3 days and was found to have sepsis 2/2 PNA vs mastoiditis. -Afebrile, tachycardic at 133 and saturating at 92% on 2L NC. Leukocytosis of 18.85k, so meets criteria for sepsis per current CMS guidelines -Presenting symptoms include AMS, headache, right ear pain, nonproductive cough -Lactic acid and procalcitonin within normal limits. D-dimer normal. Flu PCR negative -ESR elevated at 42, CPK elevated at 15.8, mild troponin elevation of 0.235 -CXR with cardiomegaly with mild pulmonary vascular congestion. No airspace consolidation or large pleural effusion is identified -Started on Zosyn for empiric antibiotic coverage. We will add doxycycline for atypical coverage. Follow blood culture -Repeat CXR with PA and lateral views tomorrow morning -CT head w/o contrast ordered to rule out mastoiditis (2) Acute respiratory failure with hypoxia: Reportedly with hypoxia in high 80s-90 % on room air in clinic today, per -Currently saturating at 95% on 2 L nasal cannula. Does not normally require home O2 -Continue supplemental O2 as needed (3) Elevated troponin: Troponin initially elevated at 0.154 and then 0.235 80 minutes later -No chest pain or acute ischemic changes on EKG -Likely non-specific elevation due to infection -Trend troponin, monitor on telemetry, repeat EKG in AM (4) Asthma, moderate persistent: Follows with Dr. Paul of pulmonology -Continue budesonide neb, duonebs, singulair, spiriva -No wheezing on exam, so will not initiate steroids at this time (5) DM type 2 (diabetes mellitus, type 2): A1c of 6 in April 2019 -Hold home agents -SSI while in-patient -BSG AC HS (6) HTN (hypertension): Normtensive -Continue amlodipine, hctz (7) BPH (benign prostatic hyperplasia): Continue doxazosin (8) Hypothyroidism: Continue levothyroxine (9) Dyslipidemia: Continue statin (10) PHILLIP on CPAP: CPAP at bedtime DVT Ppx: SQ heparin Code status: FULL per discussion with patient PCP: Windy Dispo: Admitted to PCU. Patient seen in collaboration with Dr. Dias. Please see addendum. History of Present Illness Chief Complaint: Altered mental status, weakness Primary Care Provider: Cynthia Temple MD This is a 73-year-old male with a PMH of moderate persistent eosinophilic asthma, allergic rhinitis, PHILLIP on CPAP, DM II, HTN, hypothyroidism and other medical problems listed below who presents with weakness and headache x 3 days. Patient initially noticed headache and right ear pain along with decreased appetite a few days ago. This morning, noted the patient seemed very unsteady on his feet and felt that she needed to follow him when he was ambulating to the restroom. Also seemed like he was confused compared to baseline, which has been common in the past when patient has pneumonia or an as thma exacerbation. Also endorses dry cough over the past few days. Denies any fever, chills, lightheadedness, dizziness, chest pain, palpitations, wheezing, hemoptysis, nausea, vomiting, abdominal pain, dysuria, diarrhea or constipation. Was seen by PCP Dr. Temple this morning, who found patient to be tachycardic in the 120s with O2 saturation in the high 80s-90 on room air. Also noted patie nt to be confused and not responding well to verbal cues. Sent patient to ED for further evaluation and concern for sepsis. In ED, patient is afebrile, tachycardic at 133 and saturating at 92% on 2L NC. Leukocytosis of 18.85k, ESR elevated at 42, CPK elevated at 15.8, mild troponin elevation of 0.235. Lactic acid and procalcitonin within normal limits. D-dimer normal. Flu PCR negative. CXR with cardiomegaly with mild pulmonary vascular congestion. No airspace consolidation or large pleural effusion is identified. Allergies Allergy/AdvReac Type Severity Reaction Status Date / Time cat dander Allergy Unknown watery eyes Verified 06/29/19 12:51 No Known Drug Allergies Allergy Unknown . Verified 06/29/19 12:51 Home Medications Home Medications Medication Instructions Recorded Confirmed Type albuterol sulfate 90 mcg/actuation 2 puff INHALATION Q4H PRN #6.7 gm 02/25/19 06/29/19 Rx aerosol inhaler amlodipine 5 mg tablet 5 mg PO DAILY #90 tab 02/25/19 06/29/19 Rx aspirin 81 mg tablet,delayed 81 mg PO DAILY #1 tab 02/25/19 06/29/19 Rx release atorvastatin 10 mg tablet 10 mg PO DAILY #90 tab 02/25/19 06/29/19 Rx beclomethasone dipropionate 40 2 inh INTRANASAL DAILY #6.8 gm 02/25/19 06/29/19 Rx mcg/actuation nasal HFA inhaler epinephrine 0.3 mg/0.3 mL 0.3 mg IM Q15M #1 ea 02/25/19 06/29/19 Rx injection, auto-injector fluticasone furoate 200 1 inh INHALATION DAILY #28 ea 02/25/19 06/29/19 Rx mcg-vilanterol 25 mcg/dose inhalation powder ipratropium-albuterol 0.5 mg-3 3 ml INHALATION Q4 PRN #1 puffs 02/25/19 06/29/19 Rx mg(2.5 mg base)/3 mL nebulization soln levothyroxine 100 mcg tablet 100 mcg PO DAILY 90 Days #90 tab 02/25/19 06/29/19 Rx metformin 1,000 mg tablet 1,000 mg PO BID #90 tab 02/25/19 06/29/19 Rx mometasone 50 mcg/actuation nasal 2 spray INTRANASAL DAILY #17 gm 02/25/19 06/29/19 Rx spray montelukast 10 mg tablet 10 mg PO QAM #90 tab 02/25/19 06/29/19 Rx omeprazole 20 mg capsule,delayed 20 mg PO DAILY #1 cap 02/25/19 06/29/19 Rx release tadalafil 20 mg tablet 20 mg PO DAILY PRN #90 tab 02/25/19 06/29/19 Rx tiotropium bromide 18 mcg capsule 1 cap INHALATION DAILY AFTERNOON 02/25/19 06/29/19 Rx with inhalation device #1 inhaler omalizumab 150 mg/mL subcutaneous 150 mg SUBCUT .COMPLEX #0 ml 03/19/19 06/29/19 Rx syringe azelastine 1 spray INTRANASAL BID 06/29/19 06/29/19 History budesonide [Pulmicort] 1 mg INHALATION DAILY 06/29/19 06/29/19 History cetirizine 10 mg PO DAILY PRN 06/29/19 06/29/19 History doxazosin 2 mg PO HS 06/29/19 06/29/19 History hydrochlorothiazide 12.5 mg PO DAILY 06/29/19 06/29/19 History Past Med/Surg History Medical History (Updated 06/29/19 @ 17:44 by Stephani Sharma PA-C) Allergic rhinitis (Chronic) Asthma, moderate persistent (Chronic) BPH (benign prostatic hyperplasia) (Chronic) DM type 2 (diabetes mellitus, type 2) (Chronic) Dyslipidemia (Chronic) Eosinophilic asthma (Chronic) HTN (hypertension) (Chronic) Hypothyroidism (Chronic) PHILLIP on CPAP Surgical History (Updated 06/29/19 @ 15:48 by Stephani Sharma PA-C) History of colonoscopy History of shoulder surgery left History of tonsillectomy Family History Mother Diabetes Father Diabetes Emphysema of lung Sister Diabetes Social History Preferred Language: French Communication Ability: Effective Prepleater Required: Yes Beliefs That Will Affect Care: None marital status: Current Living Situation: Spouse current occupational status: retired Other Information That Helps Us Care for You: No Feels Safe at Home: Yes Safety Concerns: Feels Safe At This Time Smoking Status: Never smoker Do You Dip or Chew Tobacco: No ; Second Hand Exposure: No ; Tobacco Cessation Education Requested by Patient: No Hx Alcohol Use: No Hx Substance Use: No Review of Systems Review of Systems: At least ten systems reviewed and negative except as noted in the HPI. Physical Exam Physical Exam: General Appearance: WD/WN, vitals as above, sitting up in bed, appears acutely ill but pleasant, conversing easily Head: normocephalic, atraumatic Eyes: normal inspection, PERRL, conjunctivae normal, anicteric sclerae ENT: external ear and nose normal, R TM pearly spencer, no bulging or erythema. Unable to visualize L TM 2/2 cerumen. Oropharynx normal Neck: trachea midline, no thyromegaly normal visual inspection Respiratory: normal respiratory effort, lungs with scattered rhonchi, bibasilar rales. No wheezing noted. Normal insp/exp effort, no accessory muscle use Cardiovascular: tachycardic rate, regular rhythm, no murmur appreciated, normal peripheral pulses, no BLE edema. Vessels: no JVD or carotid bruit Chest: normal inspection of chest Abdomen/GI: normal bowel sounds, soft, nontender, no hepatosplenomegaly Extremities/Musculoskelatal: no cyanosis or clubbing, extremities motor strength 5/5 Neurologic: PERRL, EOMI, accommodation nl, no face palsy, no dysarthria CN's II-XI intact bilaterally and moves all extremities Psychiatric: A+O to person and place, not entirely to situation. Euthymic affect Skin: no rashes, normal color, warm/dry Results & Data Vital Signs (Past 12 Hours) Vital Signs Temp Pulse Pulse Resp BP BP Pulse Ox 06/29/19 13:30 125 H 20 147/88 H 94 06/29/19 13:00 118 H 24 155/102 H 93 06/29/19 12:38 120 H 19 146/94 H 94 06/29/19 12:30 116 H 24 94 06/29/19 12:19 118 H 27 H 94 06/29/19 12:17 123 H 30 H 133/105 H 95 06/29/19 12:07 90 06/29/19 11:58 37.4 C 133 H 20 149/89 H 90 Laboratory Results Short CBC 06/29/19 Range/Units 12:34 WBC 18.85 H (4.8-10.8) K/uL Hgb 15.8 (14.0-18.0) g/dL Hct 43.9 (42-52) % Plt Count 265 (130-400) K/uL BMP 06/29/19 12:34 Sodium 135 L Potassium 3.4 L Chloride 100 Carbon Dioxide 27 BUN 13 Creatinine 0.86 Glucose 161 H Calcium 9.6 Cardiac Enzymes 06/29/19 06/29/19 06/29/19 Range/Units 12:34 12:34 13:51 Troponin I 0.154 H* Cancelled 0.235 H* (0-0.045) ng/ml Liver Function 06/29/19 Range/Units 12:34 Total Bilirubin 0.7 (0.2-1) mg/dl AST 12 L (15-37) U/L ALT 32 (12-78) U/L Alkaline Phosphatase 37 L (45-117) U/L Albumin 4.1 (3.4-5.0) gm/dl Urine 06/29/19 Range/Units 13:25 Urine Color Dark Yellow Urine Appearance Clear (Clear) Urine pH 8.0 H (4.5-7.5) Ur Specific [place] 1.023 (1.000-1.030) Urine Protein Negative (Negative) Urine Glucose (UA) Negative (Negative) Diagnostic Findings CXR: IMPRESSION: 1. Cardiomegaly with mild pulmonary vascular congestion. 2. No airspace consolidation or large pleural effusion is identified. ECG Rhythm: sinus tachycardia Findings: + PAC Change: no significant change Supervising Physician Co-Signing Physician Notes HISTORY: Record reviewed. Patient interviewed and examined. Care coordinated with Stephani Sharma PA-C. Please refer to her documentation for complete history. Briefly, 73 YO male with history of hypertension, asthma, DM, and other problems. Seen in clinic today with cough, confusion, hypoxia, tachycardia. Has had right earache and right postauricular headache. Denies fever, chills, sweats. Referred to ED for further evaluation. Better in ED, but still somewhat confused. EXAM: General- no distress ENT- right TM without erythema or bulging; no tenderness over right mastoid process Lungs- bibasilar rales; no significant wheezing; no respiratory distress Cardiovascular- RRR; no murmur; no gallop; no JVD; trace pretibial edema Abdomen- + bowel sounds, soft, nontender Extremities- no cyanosis; no calf tenderness Neuro- alert, oriented to person and place, but not day of week or president Skin- warm & dry DATA: Hgb 15.8, WBC 18,850, platelets 265,000. Na 135, K 3.4, BUN 13, creat 0.86, random glucose 161. Lactate 1.4. Procalcitonin 0.29. D-dimer 420. Troponin 0.235 Nasopharyngeal swab for influenza A/B negative. Other lab studies as noted. Chest x-ray reviewed by undersigned and formally interpreted by Radiology: FINDINGS: 2 AP, portable, upright chest radiographs are compared to study dated 12/02/2018 and 12/22/2015. The examination is degraded by portable technique and patient rotation. The heart is enlarged noting atherosclerotic calcification of the thoracic aorta. There is mild pulmonary vascular congestion. There is chronic elevation of the right hemidiaphragm and bibasilar atelectasis. No large pleural effusion is identified. No pneumothorax is seen. The skeletal structures are osteopenic. The bony thorax is grossly intact. IMPRESSION: 1. Cardiomegaly with mild pulmonary vascular congestion. 2. No airspace consolidation or large pleural effusion is identified. Electronically signed by: Hal Cruz M.D. 06/29/2019 1:00 PM EKG performed at [address] at 122 / minute, PAC's, baseline artifact, no acute changes. ASSESSMENT AND PLAN: Altered mental status associated with cough, right-sided headache, tachycardia, leukocytosis. No infiltrates appreciated on chest x-ray. Possible sepsis- meets criteria for sepsis per current CMS criteria. Possible sources = pulmonary infection, mastoiditis. Blood cultures obtained and received broad spectrum antibiotic coverage with piperacillin / tazobactam. Serum lactate 1.4. Procalcitonin normal. Add doxycycline for atypical coverage. Check f/u imaging of chest with PA and lateral views in [address] head to rule out mastoiditis. Chest x-ray interpreted by Radiology as showing mild pulmonary vascular congestion, but appearance may be secondary to poor inspiratory effort. Tachycardiac at 120. Will give 1 L IV fluids with caution. Serum troponin slightly elevated- no associated chest pain or EKG changes. Suspect nonspecific elevation due to infection or possible demand ischemia. Follow. Please refer to ANN-MARIE Sharma's documentation for discussion of other issues.
[2019-06-29] MEDS ORDERED: GLUCOSE 10 TABS/TUBE PO PRN (15:52)
[2019-06-29] MEDS ORDERED: CARBOHYDRATES FOR HYPOGLYCEMIA PO PRN (15:52)
[2019-06-29] MEDS ORDERED: ALBUTEROL HFA 8 GM INHALER INH PRN (15:52)
[2019-06-29] MEDS ORDERED: CETIRIZINE HCL 10 MG TABLET PO PRN (15:52)
[2019-06-29] MEDS ORDERED: POLYETHYLENE (MIRALAX) 17 GM PACK PO PRN (15:52)
[2019-06-29] MEDS ORDERED: EPINEPHRINE ADULT AUTO-INJECT 0.3 MG SYR IM PRN (15:52)
[2019-06-29] MEDS ORDERED: GLUCAGON FOR INJ 1 MG VIAL SQ PRN (15:52)
[2019-06-29] MEDS ORDERED: ALBUT/IPRATROP 3MG/0.5MG NEB 3 ML VIAL INH PRN (15:52)
[2019-06-29] MEDS ORDERED: GLUCOSE 40% GEL 15 GM TUBE PO PRN (15:52)
[2019-06-29] MEDS ORDERED: DEXTROSE 50% 50 ML SYRINGE IV PRN (15:52)
[2019-06-29] MEDS ORDERED: SODIUM CHLORIDE 0.9% 1000ML 1,000 ML IV SCH (16:00)
--- NOTE | 2019-06-29 16:03 | Communication Note ---
Date of Service: June 29, 2019 HISTORY: Record reviewed. Patient interviewed and examined. Care coordinated with Stephani Sharma PA-C. Please refer to her documentation for complete history. Briefly, 73 YO male with history of hypertension, asthma, DM, and other problems. Seen in clinic today with cough, confusion, hypoxia, tachycardia. Has had right earache and right postauricular headache. Denies fever, chills, sweats. Referred to ED for further evaluation. Better in ED, but still somewhat confused. EXAM: General- no distress ENT- right TM without erythema or bulging; no tenderness over right mastoid process Lungs- bibasilar rales; no significant wheezing; no respiratory distress Cardiovascular- RRR; no murmur; no gallop; no JVD; trace pretibial edema Abdomen- + bowel sounds, soft, nontender Extremities- no cyanosis; no calf tenderness Neuro- alert, oriented to person and place, but not day of week or president Skin- warm & dry DATA: Hgb 15.8, WBC 18,850, platelets 265,000. Na 135, K 3.4, BUN 13, creat 0.86, random glucose 161. Lactate 1.4. Procalcitonin 0.29. D-dimer 420. Troponin 0.235 Nasopharyngeal swab for influenza A/B negative. Other lab studies as noted. Chest x-ray reviewed by undersigned and formally interpreted by Radiology: FINDINGS: 2 AP, portable, upright chest radiographs are compared to study dated 12/02/2018 and 12/22/2015. The examination is degraded by portable technique and patient rotation. The heart is enlarged noting atherosclerotic calcification of the thoracic aorta. There is mild pulmonary vascular congestion. There is chronic elevation of the right hemidiaphragm and bibasilar atelectasis. No large pleural effusion is identified. No pneumothorax is seen. The skeletal structures are osteopenic. The bony thorax is grossly intact. IMPRESSION: 1. Cardiomegaly with mild pulmonary vascular congestion. 2. No airspace consolidation or large pleural effusion is identified. Electronically signed by: Hal Cruz M.D. 06/29/2019 1:00 PM EKG performed at [address] at 122 / minute, PAC's, baseline artifact, no acute changes. ASSESSMENT AND PLAN: Altered mental status associated with cough, right-sided headache, tachycardia, leukocytosis. No infiltrates appreciated on chest x-ray. Possible sepsis- meets criteria for sepsis per current CMS criteria. Possible sources = pulmonary infection, mastoiditis. Blood cultures obtained and received broad spectrum antibiotic coverage with piperacillin / tazobactam. Serum lactate 1.4. Procalcitonin normal. Add doxycycline for atypical coverage. Check f/u imaging of chest with PA and lateral views in [address] head to rule out mastoiditis. Chest x-ray interpreted by Radiology as showing mild pulmonary vascular congestion, but appearance may be secondary to poor inspiratory effort. Tachycardiac at 120. Will give 1 L IV fluids with caution. Serum troponin slightly elevated- no associated chest pain or EKG changes. Suspect nonspecific elevation due to infection or possible demand ischemia. Follow. Please refer to ANN-MARIE Sharma's documentation for discussion of other issues.
[2019-06-29] MEDS: DOXYCYCLINE HYCLATE 100 MG CAP PO SCH (16:12)
--- NOTE | 2019-06-29 16:49 | CT Scan Report ---
CT head/brain wo con CLINICAL HISTORY: AMS COMPARISON STUDY: No previous studies for comparison. TECHNIQUE: Axial CT of the brain is performed from the vertex to the skull base. IV contrast was not administered for this examination. A dose lowering technique was utilized adhering to the principles of ALARA. CT DOSE: 537.48 mGy.cm FINDINGS: No intra or extra-axial mass lesions are visualized. There is no CT evidence of acute cortical infarc tion. There is no evidence of midline shift. There is no acute hemorrhage. No calvarial fractures ar e visualized. There are moderate white matter hypodensities likely on a small vessel basis. There is no evidence of pathologic ventricular dilatation. There is right maxillary and ethmoid sinus mucosal thickening. IMPRESSION: 1. Inflammatory changes within the right maxillary ethmoid sinuses 2. No acute intracranial findings Electronically signed by: Sadi Becerra M.D. 06/29/2019 4:48 PM
[2019-06-29] MEDS: INSULIN ASPART 100 UNITS/ML 3 ML PEN SC SCH ×3 (17:03→21:23)
[2019-06-29] MEDS: PIPERACILLIN/TAZOBACTAM 3.375 GM in DEXTROSE 5% 100 ML IV SCH (17:05)
[2019-06-29] MEDS: ACETAMINOPHEN 325 MG TAB PO PRN ×2 (17:07→21:11)
[2019-06-29] MEDS: BUDESONIDE 0.5 MG/2 ML VIAL (PULMICORT) INH SCH (19:26)
[2019-06-29] MEDS: DOXAZosin MESYLATE TAB 2 MG TAB PO SCH (21:12)
[2019-06-30] MEDS: HEPARIN SOD 5,000 UNIT/0.5 ML VIAL SQ SCH ×4 (00:22→20:59)
[2019-06-30] MEDS: PIPERACILLIN/TAZOBACTAM 3.375 GM in DEXTROSE 5% 100 ML IV SCH ×4 (01:24→18:00)
[2019-06-30 01:53] LABS: Hematocrit (blood only) 40.4 % (42-52); Hemoglobin 14.2 g/dL (14.0-18.0); Mean Corpuscular Hemoglobin 30.8 pg (25-34); Mean Corpuscular Hgb Conc 35.1 g/dL (32-36); Mean Corpuscular Volume 87.6 fL (80-100); Mean Platelet Volume 9.1 fL (7.4-10.4); Platelet Count 253 K/uL (130-400); RDW Coefficient of Variation 13.8 % (11.5-14.5); RDW Standard Deviation 44.4 fL (36.4-46.3); Red Blood Count 4.61 M/uL (4.7-6.1); White Blood Count 12.21 K/uL (4.8-10.8)
[2019-06-30 02:10] LABS: Calcium 9.2 mg/dl (8.5-10.1); Est GFR (African American) 101.9; Est GFR (Non-African American) 87.9; Potassium 3.1 mmol/L (3.5-5.1)
[2019-06-30 02:23] LABS: Troponin I 0.192 ng/ml (0-0.045)
[2019-06-30] MEDS: LEVOTHYROXINE SODIUM 100 MCG TABLET PO SCH (05:38)
[2019-06-30] MEDS: DOXYCYCLINE HYCLATE 100 MG CAP PO SCH ×2 (05:38→17:42)
[2019-06-30] MEDS: BUDESONIDE 0.5 MG/2 ML VIAL (PULMICORT) INH SCH ×2 (07:05→19:16)
[2019-06-30] MEDS ORDERED: POTASSIUM CHLORIDE 20 MEQ TABCR PO STA (08:06)
--- NOTE | 2019-06-30 08:18 | XRay Report ---
XR chest 2V PA/lateral HISTORY: repeat, eval for PNA COMPARISON: Chest 06/29/2019. FINDINGS: There are low lung volumes. The heart remains mildly enlarged. Bibasilar linear densities c onsistent with subsegmental atelectasis. No pleural effusions. No pneumothorax. No evidence for pulmo nary edema. IMPRESSION: 1. No evidence for pulmonary edema. 2. Low lung volumes with bibasilar linear densities suggesting subsegmental atelectasis. This is fiona lar to the prior study. 3. Stable cardiomegaly. Electronically signed by: William Sánchez M.D. 06/30/2019 8:17 AM
[2019-06-30] MEDS: PANTOprazole 40 MG TAB PO SCH (08:26)
[2019-06-30] MEDS: MONTELUKAST SODIUM 10 MG TABLET PO SCH (08:26)
[2019-06-30] MEDS: ATORVASTATIN 10 MG TAB PO SCH (08:27)
[2019-06-30] MEDS: ASPIRIN 81 MG ECTAB PO SCH (08:27)
[2019-06-30] MEDS: AMLODIPINE BESYLATE 5 MG TAB PO SCH (08:27)
[2019-06-30] MEDS: FLUTICASONE PROPIONATE NA SPR 16 GM BTL SCH (08:27)
[2019-06-30] MEDS: INSULIN ASPART 100 UNITS/ML 3 ML PEN SC SCH ×4 (08:28→20:59)
[2019-06-30] MEDS ORDERED: BECLOMETHASONE DIPROPIONATE INTNAS SCH (09:00)
[2019-06-30] MEDS: ACETAMINOPHEN 325 MG TAB PO PRN ×2 (12:09→21:06)
[2019-06-30] MEDS: TIOTROPIUM BROMIDE 5 PUFF/90 MCG INH INH SCH (12:10)
--- NOTE | 2019-06-30 12:51 | Hospitalist Progress Note ---
Date of Service June 30, 2019 Assessment & Plan (1) Sepsis: This is a 73-year-old male with a PMH of moderate persistent eosinophilic asthma, allergic rhinitis, PHILLIP on CPAP, DM II, HTN, hypothyroidism and other medical problems listed below who presents with weakness and headache x 3 days and was found to have sepsis 2/2 PNA vs mastoiditis. Still Afebrile, tachycardic at 133 on admission resolved and on room air. Leukocytosis of 18.85k on admission, improving now 12.2K AMS seems to have resolved as patient is completely alert, oriented x3 and had insight into his medical problems Son-in-law was at bedside Lactic acid and procalcitonin within normal limits. D-dimer normal. Flu PCR negative ESR elevated at 42, CPK elevated at 15.8, mild troponin elevation of 0.235 CXR with cardiomegaly with mild pulmonary vascular congestion. No airspace consolidation or large pleural effusion is identified Likely sepsis due to URI, sinusitis On zosyn and doxy. Will continue for now. If no growth by tomorrow, will discontinue antibiotics CT head showed right maxillary ethmoid sinus inflammation (2) Acute respiratory failure with hypoxia: Reportedly with hypoxia in high 80s-90 % on room air in clinic on admission, per Required nasal oxygen on admission Now resolved. Currently on room air sats >92% (3) Elevated troponin: Troponin initially elevated at 0.154, peaked at 0.291 and downtrended to 0.192 No chest pain or acute ischemic changes on EKG Likely non-specific elevation related to infection (4) Asthma, moderate persistent: Follows with Dr. Paul of pulmonology Not in exacerbation Continue budesonide zonia, duonebs, singulair, spiriva (5) DM type 2 (diabetes mellitus, type 2): A1c of 6 in April 2019 Hold home agents SSI while in-patient Monitor blood glucose (6) HTN (hypertension): Normtensive Continue amlodipine, hctz (7) BPH (benign prostatic hyperplasia): Continue doxazosin (8) Hypothyroidism: Continue levothyroxine (9) Dyslipidemia: Continue statin (10) PHILLIP on CPAP: CPAP at bedtime DVT Ppx: SQ heparin Code status: FULL CODE PCP: Windy Subjective Patient seen and examined Reports feeling better than yesterday Still reports right sided post auricular headache, now improved from yesterday. Denied any fevers, chills, nausea, vomiting. Reports feeling stronger today Reports cough is same. Denied any congestion, sore throat Denied any chest pain, shortness of breath Denied any neck pains. Review of Systems Review of Systems: All systems reviewed and unremarkable except for mentioned above. Physical Exam Physical Exam: General: Well nourished, well hydrated, no acute distress Eyes: PERRL, conjunctivae normal, not pale, anicteric sclerae, EOM intact bilaterally ENMT: External ear and nose normal, oropharynx normal, no tenderness on palpation of maxillary/frontal sinus areas Neck: Normal visual inspection, no tracheal deviation, no swelling noted Respiratory: Normal respiratory effort, no respiratory distress, lungs clear to auscultation, no crackles and no wheezes Cardiovascular: Pulse is RRR. S1 S2. No pedal edema Gastrointestinal (Abdomen): Abdomen is not distended, soft, non-tender to palpation, no guarding, no palpable hepatosplenomegaly, normal bowel sounds Musculoskeletal: No cyanosis or clubbing, all extremities motor strength 5/5 Genitourinary: No CVA tenderness Skin: No rash noted on gross inspection, No ulcers noted Neurologic: Alert and oriented x 3, No focal weakness, sensation grossly intact Psychiatric: Alert and oriented x 3, euthymic affect, no depressed affect Lymphatic: No cervical and axillary lymphadenopathy Results & Data Vital Signs (Past 12 Hours) Vital Signs Temp Pulse Resp BP Pulse Ox 06/30/19 11:00 37.0 C 87 18 108/80 93 06/30/19 07:30 37.0 C 91 H 20 155/90 H 91 06/30/19 07:08 94 H 18 95 06/30/19 03:20 37.1 C 88 18 128/80 93
[2019-06-30] MEDS: DOXAZosin MESYLATE TAB 2 MG TAB PO SCH (21:00)
[2019-06-30] MEDS: ONDANSETRON INJ 2 MG/ML 2 ML VIAL IV PRN (22:00)
[2019-07-01] MEDS: PIPERACILLIN/TAZOBACTAM 3.375 GM in DEXTROSE 5% 100 ML IV SCH ×3 (02:49→17:00)
[2019-07-01] MEDS: ONDANSETRON INJ 2 MG/ML 2 ML VIAL IV PRN (04:07)
[2019-07-01 06:00] LABS: Hematocrit (blood only) 39.2 % (42-52); Hemoglobin 13.9 g/dL (14.0-18.0); Mean Corpuscular Hemoglobin 30.2 pg (25-34); Mean Corpuscular Hgb Conc 35.5 g/dL (32-36); Mean Platelet Volume 9.5 fL (7.4-10.4); Platelet Count 251 K/uL (130-400); RDW Coefficient of Variation 13.6 % (11.5-14.5); RDW Standard Deviation 42.2 fL (36.4-46.3); Red Blood Count 4.61 M/uL (4.7-6.1); White Blood Count 5.67 K/uL (4.8-10.8)
[2019-07-01] MEDS ORDERED: PROMETHAZINE HCL 12.5 MG in SODIUM CHLORIDE 0.9% 50 ML IV STA (06:13)
[2019-07-01 06:31] LABS: BUN Creatinine Ratio 11.4 (10-20); Calcium 8.9 mg/dl (8.5-10.1); Creatinine Clr Calc Pharmacy 77.4 ml/min; Est GFR (African American) 105.1; Est GFR (Non-African American) 90.7; Potassium 3.1 mmol/L (3.5-5.1)
[2019-07-01] MEDS: DOXYCYCLINE HYCLATE 100 MG CAP PO SCH ×2 (06:33→17:00)
[2019-07-01] MEDS: LEVOTHYROXINE SODIUM 100 MCG TABLET PO SCH (06:33)
[2019-07-01] MEDS: HEPARIN SOD 5,000 UNIT/0.5 ML VIAL SQ SCH ×3 (06:33→21:43)
[2019-07-01] MEDS: BUDESONIDE 0.5 MG/2 ML VIAL (PULMICORT) INH SCH ×2 (07:02→18:59)
[2019-07-01] MEDS: FLUTICASONE PROPIONATE NA SPR 16 GM BTL SCH (07:55)
[2019-07-01] MEDS: PANTOprazole 40 MG TAB PO SCH (07:55)
[2019-07-01] MEDS: AMLODIPINE BESYLATE 5 MG TAB PO SCH (07:55)
[2019-07-01] MEDS: ATORVASTATIN 10 MG TAB PO SCH (07:55)
[2019-07-01] MEDS: MONTELUKAST SODIUM 10 MG TABLET PO SCH (07:56)
[2019-07-01] MEDS: ASPIRIN 81 MG ECTAB PO SCH (07:57)
[2019-07-01] MEDS: INSULIN ASPART 100 UNITS/ML 3 ML PEN SC SCH ×4 (08:01→21:43)
[2019-07-01] MEDS ORDERED: POTASSIUM CHLORIDE 20 MEQ TABCR PO ONE (09:15)
[2019-07-01] MEDS: ACETAMINOPHEN 325 MG TAB PO PRN ×3 (12:40→23:35)
[2019-07-01] MEDS: TIOTROPIUM BROMIDE 5 PUFF/90 MCG INH INH SCH (12:41)
--- NOTE | 2019-07-01 17:24 | Hospitalist Progress Note ---
Date of Service July 01, 2019 Assessment & Plan (1) Sepsis: Patient is a 73-year-old male with H/O moderate persistent eosinophilic asthma, allergic rhinitis, PHILLIP on CPAP, DM II, HTN, hypothyroidism and other medical problems listed below who presents with weakness and headache x 3 days and was found to have sepsis 2/2 PNA vs mastoiditis. Sepsis Likely sources: Mastoiditis, possible atypical pneumonia/Bronchitis CT head:Inflammatory changes within the right maxillary ethmoid sinuses. No acute intracranial findings Blood culture: No growth today Continue Zosyn, doxycycline for now Received IV fluids Likely transition to p.o. antibiotics tomorrow (2) Acute respiratory failure with hypoxia: Reportedly with hypoxia in high 80s-90 % on room air in clinic on admission, per Currently saturating well on room air Monitor (3) Elevated troponin: Troponin initially elevated at 0.154, peaked at 0.291 and downtrended to 0.192 Likely due to demand ischemia secondary to infection, hypoxia ECHO; no regional wall motion abnormalities noted (4) Asthma, moderate persistent: Follows with Dr. Paul of pulmonology No wheezing on exam Continue budesonide, duonebs, singulair, spiriva (5) DM type 2 (diabetes mellitus, type 2): A1c of 6 in April 2019 Hold home agents SSI while in-patient Monitor blood glucose (6) HTN (hypertension): stable Continue amlodipine, hctz (7) BPH (benign prostatic hyperplasia): Continue doxazosin (8) Hypothyroidism: Continue levothyroxine (9) Dyslipidemia: Continue statin (10) PHILLIP on CPAP: CPAP at bedtime DVT Px: Heparin SQ Code status: FULL CODE Disposition Likely discharge home when stable Subjective Patient is seen and examined at bedside Complains of dry cough and nausea this morning Otherwise feels better today Denies any chest pain, shortness of breath, dizziness, abdominal pain, headache, sinus pressure Family at bedside Review of Systems Review of Systems: All systems reviewed & are unremarkable except as noted in HPI & below Physical Exam Physical Exam: Physical Exam: Vitals signs as noted above General Appearance:Moderately built and nourished, no apparent distress Head: normocephalic, Atraumatic Eyes: normal inspection, EOMI Neck: supple, Trachea midline Respiratory/Chest: Normal breath sounds, CTA Cardiovascular: S1, S2, No murmur Abdomen/GI:Soft, Non tender, Bowel sounds present Extremities/Musculoskelatal:normal inspection, no edema Neurologic/Psych:AAOX3, grossly no focal neurological deficits Skin: normal color, warm Results & Data Vital Signs (Past 12 Hours) Vital Signs Temp Pulse Pulse Resp BP Pulse Ox 07/01/19 15:33 37.1 C 89 18 127/78 94 07/01/19 11:53 36.7 C 94 H 18 130/74 91 07/01/19 08:05 36.8 C 100 H 18 139/76 93 07/01/19 08:00 83 07/01/19 07:02 78 18 95 Laboratory Results Short CBC 07/01/19 Range/Units 05:38 WBC 5.67 (4.8-10.8) K/uL Hgb 13.9 L (14.0-18.0) g/dL Hct 39.2 L (42-52) % Plt Count 251 (130-400) K/uL BMP 07/01/19 05:38 Sodium 133 L Potassium 3.1 L Chloride 100 Carbon Dioxide 24 BUN 9 Creatinine 0.77 Glucose 122 H Calcium 8.9
[2019-07-01] MEDS: DOXAZosin MESYLATE TAB 2 MG TAB PO SCH (21:42)
[2019-07-02] MEDS: PIPERACILLIN/TAZOBACTAM 3.375 GM in DEXTROSE 5% 100 ML IV SCH ×2 (04:06→10:34)
[2019-07-02] MEDS: HEPARIN SOD 5,000 UNIT/0.5 ML VIAL SQ SCH (06:02)
[2019-07-02] MEDS: DOXYCYCLINE HYCLATE 100 MG CAP PO SCH (06:02)
[2019-07-02] MEDS: LEVOTHYROXINE SODIUM 100 MCG TABLET PO SCH (06:03)
[2019-07-02 06:49] LABS: Hematocrit (blood only) 39.8 % (42-52); Mean Corpuscular Hemoglobin 30.2 pg (25-34); Mean Corpuscular Hgb Conc 35.2 g/dL (32-36); Mean Corpuscular Volume 85.8 fL (80-100); Mean Platelet Volume 9.5 fL (7.4-10.4); Platelet Count 290 K/uL (130-400); RDW Coefficient of Variation 13.8 % (11.5-14.5); RDW Standard Deviation 42.8 fL (36.4-46.3); Red Blood Count 4.64 M/uL (4.7-6.1)
[2019-07-02] MEDS: BUDESONIDE 0.5 MG/2 ML VIAL (PULMICORT) INH SCH (06:50)
[2019-07-02 07:24] LABS: BUN Creatinine Ratio 8.3 (10-20); Est GFR (African American) 87.8; Est GFR (Non-African American) 75.8; Magnesium 2.1 mg/dl (1.8-2.4); Potassium 3.2 mmol/L (3.5-5.1)
[2019-07-02] MEDS ORDERED: POTASSIUM CHLORIDE 20 MEQ TABCR PO STA (07:45)
[2019-07-02] MEDS: ACETAMINOPHEN 325 MG TAB PO PRN (08:37)
[2019-07-02] MEDS: PANTOprazole 40 MG TAB PO SCH (08:37)
[2019-07-02] MEDS: AMLODIPINE BESYLATE 5 MG TAB PO SCH (08:38)
[2019-07-02] MEDS: ATORVASTATIN 10 MG TAB PO SCH (08:38)
[2019-07-02] MEDS: ASPIRIN 81 MG ECTAB PO SCH (08:39)
[2019-07-02] MEDS: MONTELUKAST SODIUM 10 MG TABLET PO SCH (08:39)
[2019-07-02] MEDS: FLUTICASONE PROPIONATE NA SPR 16 GM BTL SCH (08:39)
[2019-07-02] MEDS: INSULIN ASPART 100 UNITS/ML 3 ML PEN SC SCH ×2 (08:40→11:54)
[2019-07-02] MEDS: ONDANSETRON INJ 2 MG/ML 2 ML VIAL IV PRN (09:21)
[2019-07-02] MEDS: TIOTROPIUM BROMIDE 5 PUFF/90 MCG INH INH SCH (11:54)
[2019-07-02] MEDS ORDERED: LACTOBACILLUS ACIDOPHILUS (FLORANEX) TAB PO SCH (12:00)
--- NOTE | 2019-07-02 12:29 | Hospitalist Progress Note ---
Date of Service July 02, 2019 Assessment & Plan (1) Sepsis: Patient is a 73-year-old male with H/O moderate persistent eosinophilic asthma, allergic rhinitis, PHILLIP on CPAP, DM II, HTN, hypothyroidism and other medical problems listed below who presents with weakness and headache x 3 days and was found to have sepsis 2/2 PNA vs mastoiditis. Sepsis Likely sources: Mastoiditis, possible atypical pneumonia/Bronchitis CT head:Inflammatory changes within the right maxillary ethmoid sinuses. No acute intracranial findings Blood culture: No growth today On Zosyn, doxycycline>> Plan to transition to PO Abx upon discharge Received IV fluids (2) Acute respiratory failure with hypoxia: Reportedly with hypoxia in high 80s-90 % on room air in clinic on admission, per Currently saturating well on room air Monitor (3) Elevated troponin: Troponin initially elevated at 0.154, peaked at 0.291 and downtrended to 0.192 Likely due to demand ischemia secondary to infection, hypoxia ECHO; no regional wall motion abnormalities noted (4) Asthma, moderate persistent: Follows with Dr. Paul of pulmonology No wheezing on exam Continue budesonide, duonebs, singulair, spiriva (5) DM type 2 (diabetes mellitus, type 2): A1c of 6 in April 2019 Hold home agents SSI while in-patient Monitor blood glucose (6) HTN (hypertension): stable Continue amlodipine, hctz (7) BPH (benign prostatic hyperplasia): Continue doxazosin (8) Hypothyroidism: Continue levothyroxine (9) Dyslipidemia: Continue statin (10) PHILLIP on CPAP: CPAP at bedtime DVT Px: Heparin SQ Code status: FULL CODE Disposition Plan to discharge home today Subjective Patient is seen and examined at bedside Had headache earlier today which resolved Cough much improved Denies any chest pain, SOB, dizziness, abdominal pain Family at bedside Eager to get discharged Review of Systems Review of Systems: All systems reviewed & are unremarkable except as noted in HPI & below Physical Exam Physical Exam: Physical Exam: Vitals signs as noted above General Appearance:Moderately built and nourished, no apparent distress Head: normocephalic, Atraumatic Eyes: normal inspection, EOMI Neck: supple, Trachea midline Respiratory/Chest: Normal breath sounds, CTA Cardiovascular: S1, S2, No murmur Abdomen/GI:Soft, Non tender, Bowel sounds present Extremities/Musculoskelatal:normal inspection, no edema Neurologic/Psych:AAOX3, grossly no focal neurological deficits Skin: normal color, warm Results & Data Vital Signs (Past 12 Hours) Vital Signs Temp Pulse Resp BP Pulse Ox 07/02/19 11:55 37.8 C H 86 20 127/78 94 07/02/19 07:41 37.0 C 80 20 146/77 H 94 07/02/19 06:50 87 14 94 07/02/19 04:00 36.9 C 84 19 124/84 96 Laboratory Results Short CBC 07/02/19 Range/Units 06:04 WBC 5.20 (4.8-10.8) K/uL Hgb 14.0 (14.0-18.0) g/dL Hct 39.8 L (42-52) % Plt Count 290 (130-400) K/uL BMP 07/02/19 06:04 Sodium 138 Potassium 3.2 L Chloride 106 Carbon Dioxide 26 BUN 8 Creatinine 0.99 Glucose 136 H Calcium 9.0
--- NOTE | 2019-07-02 12:50 | Discharge Summary ---
Date of Service July 02, 2019 Admission HPI Per Admitting Provider This is a 73-year-old male with a PMH of moderate persistent eosinophilic asthma, allergic rhinitis, PHILLIP on CPAP, DM II, HTN, hypothyroidism and other medical problems listed below who presents with weakness and headache x 3 days. Patient initially noticed headache and right ear pain along with decreased appetite a few days ago. This morning, noted the patient seemed very unsteady on his feet and felt that she needed to follow him when he was ambulating to the restroom. Also seemed like he was confused compared to baseline, which has been common in the past when patient has pneumonia or an asthma exacerbation. Also endorses dry cough over the past few days. Denies any fever, chills, lightheadedness, dizziness, chest pain, palpitations, wheezing, hemoptysis, nausea, vomiting, abdominal pain, dysuria, diarrhea or constipation. Was seen by PCP Dr. Temple this morning, who found patient to be tachycardic in the 120s with O2 saturation in the high 80s-90 on room air. Also noted patient to be confused and not responding well to verbal cues. Sent patient to ED for further evaluation and concern for sepsis. In ED, patient is afebrile, tachycardic at 133 and saturating at 92% on 2L NC. Leukocytosis of 18.85k, ESR elevated at 42, CPK elevated at 15.8, mild troponin elevation of 0.235. Lactic acid and procalcitonin within normal limits. D-dimer normal. Flu PCR negative. CXR with cardiomegaly with mild pulmonary vascular congestion. No airspace consolidation or large pleural effusion is identified. Admission Exam Per Admitting Provider General Appearance: WD/WN, vitals as above, sitting up in bed, appears acutely ill but pleasant, conversing easily Head: normocephalic, atraumatic Eyes: normal inspection, PERRL, conjunctivae normal, anicteric sclerae ENT: external ear and nose normal, R TM pearly spencer, no bulging or erythema. Unable to visualize L TM 2/2 cerumen. Oropharynx normal Neck: trachea midline, no thyromegaly normal visual inspection Respiratory: normal respiratory effort, lungs with scattered rhonchi, bibasilar rales. No wheezing noted. Normal insp/exp effort, no accessory muscle use Cardiovascular: tachycardic rate, regular rhythm, no murmur appreciated, normal peripheral pulses, no BLE edema. Vessels: no JVD or carotid bruit Chest: normal inspection of chest Abdomen/GI: normal bowel sounds, soft, nontender, no hepatosplenomegaly Extremities/Musculoskelatal: no cyanosis or clubbing, extremities motor strength 5/5 Neurologic: PERRL, EOMI, accommodation nl, no face palsy, no dysarthria CN's II-XI intact bilaterally and moves all extremities Psychiatric: A+O to person and place, not entirely to situation. Euthymic affect Skin: no rashes, normal color, warm/dry Principal Diagnosis Sinusitis Possible atypical pneumonia/Bronchitis Discharge Data Allergies Allergy/AdvReac Type Severity Reaction Status Date / Time cat dander Allergy Unknown watery eyes Verified 06/29/19 12:51 No Known Drug Allergies Allergy Unknown . Verified 06/29/19 12:51 Consultations 06/29/19 13:37 ED Decision to Admit Stat 06/29/19 15:52 Consult Case Management - Discharge Planning Routine Procedures Performed CT Head: 1. Inflammatory changes within the right maxillary ethmoid sinuses 2. No acute intracranial findings CXR: 1. No evidence for pulmonary edema. 2. Low lung volumes with bibasilar linear densities suggesting subsegmental atelectasis. This is similar to the prior study. 3. Stable cardiomegaly. Ordered Studies 06/29/19 15:52 CT head/brain wo con Routine Hospital Course (1) Sepsis: Patient is a 73-year-old male with H/O moderate persistent eosinophilic asthma, allergic rhinitis, PHILLIP on CPAP, DM II, HTN, hypothyroidism and other medical problems listed below who presents with weakness and headache x 3 days and was found to have sepsis 2/2 PNA vs mastoiditis. Sepsis Likely sources: Sinusitis, possible atypical pneumonia/Bronchitis CT head:Inflammatory changes within the right maxillary ethmoid sinuses. No acute intracranial findings Blood culture: No growth today On Zosyn, doxycycline>> Plan to transition to PO Abx upon discharge Received IV fluids (2) Acute respiratory failure with hypoxia: Reportedly with hypoxia in high 80s-90 % on room air in clinic on admission, per Currently saturating well on room air Monitor (3) Elevated troponin: Troponin initially elevated at 0.154, peaked at 0.291 and downtrended to 0.192 Likely due to demand ischemia secondary to infection, hypoxia ECHO; no regional wall motion abnormalities noted (4) Asthma, moderate persistent: Follows with Dr. Paul of pulmonology No wheezing on exam Continue budesonide, duonebs, singulair, spiriva (5) DM type 2 (diabetes mellitus, type 2): A1c of 6 in April 2019 Hold home agents SSI while in-patient Monitor blood glucose (6) HTN (hypertension): stable Continue amlodipine, hctz (7) BPH (benign prostatic hyperplasia): Continue doxazosin (8) Hypothyroidism: Continue levothyroxine (9) Dyslipidemia: Continue statin (10) PHILLIP on CPAP: CPAP at bedtime DVT Px: Heparin SQ Code status: FULL CODE Disposition Plan to discharge home today Total Time Total Time Spent Total Time Spent (In Minutes): 37 minutes Total Time Includes: Examination of the Patient, Discharge Planning, Medication Reconciliation, Communication With Other Providers and Other Discharge Plan Discharge Items Patient Disposition: Home - Self-Care Reason For Visit: pneumonia, sepsis Discharge Diagnosis: Sinusitis Possible atypical pneumonia/Bronchitis Activity: Resume your previous activity Exercise/Sports: Gradually increase as tolerated Non-emergency contact: Primary Care Provider Call non-emergency contact if: you have any medication questions, your symptoms worsen, your pain is not controlled, your pain is worsening, your pain is unusual for you, your pain is concerning for you and you have a fever Follow-up/Referrals: Cynthia Temple MD [Primary Care Provider] - Diet: Carb Consistent or DM2 Addtl Attending Provider Instructions: Follow-up with your primary care physician on July 06, 2019 at 11:05 AM Complete antibiotic course as prescribed Seek immediate medical attention if your symptoms reoccur or worsen Pending Studies at Discharge: No Stand-Alone Forms: My [employer], Smoking Cessation Medications and DC Order Prescriptions: New doxycycline hyclate 100 mg Capsule 100 mg PO DAILY@0600,1800 Qty: 10 RF: 0 amoxicillin-pot clavulanate [Augmentin] 875-125 mg tablet 1 tab PO BID Qty: 10 RF: 0 Lactobacillus acidoph-L.bulgar [Floranex] 1 million cell Tablet 4 tab PO QIDM 7 Days Qty: 28 RF: 0 potassium chloride 20 mEq tablet extended release 20 meq PO DAILY Qty: 7 RF: 0 Continued Xolair 150 mg/mL syringe 150 mg SUBCUT .COMPLEX Qty: 0 RF: 11 albuterol sulfate 90 mcg/actuation HFA aerosol inhaler 2 puff INHALATION Q4H PRN (Reason: Shortness Of Breath) Qty: 6.7 RF: 0 amlodipine 5 mg tablet 5 mg PO DAILY Qty: 90 RF: 0 aspirin [Aspirin Low Dose] 81 mg tablet,delayed release (DR/EC) 81 mg PO DAILY Qty: 1 RF: 0 atorvastatin 10 mg tablet 10 mg PO DAILY Qty: 90 RF: 0 QNASL 40 mcg/actuation HFA aerosol inhaler 2 inh intranasal DAILY Qty: 6.8 RF: 0 epinephrine 0.3 mg/0.3 mL auto-injector 0.3 mg IM Q15M Qty: 1 RF: 0 Breo Ellipta 200-25 mcg/dose blister with device 1 inh INHALATION DAILY Qty: 28 RF: 0 ipratropium-albuterol 0.5 mg-3 mg(2.5 mg base)/3 mL solution for nebulization 3 ml INHALATION Q4 PRN (Reason: Shortness Of Breath) Qty: 1 RF: 0 levothyroxine 100 mcg tablet 100 mcg PO DAILY 90 Days Qty: 90 RF: 0 metformin 1,000 mg tablet 1,000 mg PO BID Qty: 90 RF: 0 mometasone 50 mcg/actuation spray,non-aerosol 2 spray intranasal DAILY Qty: 17 RF: 0 montelukast 10 mg tablet 10 mg PO QAM Qty: 90 RF: 0 omeprazole 20 mg capsule,delayed release(DR/EC) 20 mg PO DAILY Qty: 1 RF: 0 tadalafil [Cialis] 20 mg tablet 20 mg PO DAILY PRN (Reason: OTHER) Qty: 90 RF: 0 Spiriva with HandiHaler 18 mcg capsule, w/inhalation device 1 cap Inhalation DAILY AFTERNOON Qty: 1 RF: 0 budesonide [Pulmicort] 1 mg/2 mL Suspension For Nebulization 1 mg inhalation DAILY RF: 0 azelastine 0.15 % (205.5 mcg) Anthony,Non-Aerosol 1 spray INTRANASAL BID RF: 0 cetirizine 10 mg tablet 10 mg PO DAILY PRN (Reason: Allergy Symptoms) RF: 0 doxazosin 2 mg tablet 2 mg PO HS RF: 0 hydrochlorothiazide 12.5 mg Capsule 12.5 mg PO DAILY RF: 0 Discharge Orders: Discharge Order (Routine); Ordered 07/02/19 Ordered By: Luis Delgado Admission Data Admit Date/Time: 06/29/19 14:45 Attending Provider: Luis Delgado Admit Provider: Alcides Dias Primary Care Provider: Cynthia Temple Other Providers: Alcides Dias ; Iram Mendoza Other Interventions: Discharge Summary Assessment (RN) Last Done: 07/02/19 12:26 DC Date/Time DO NOT enter until pt leaves facility: 07/02/19 13:25
== END 2019-07-02 13:25 | disposition home or self-care (01) | DRG 871 ==
LOC: ED 11:57 → SUATTDRO 14:45 → 2E 14:45

== ENCOUNTER 2019-12-05 21:12 | Inpatient (IN) ==
[2019-12-05] MEDS ORDERED: ONDANSETRON INJ 2 MG/ML 2 ML VIAL IV STA (21:42)
[2019-12-05] MEDS ORDERED: KETOROLAC TROMETHAMINE 15 MG/ML VIAL IV ONE (21:42)
[2019-12-05] MEDS ORDERED: SODIUM CHLORIDE 0.9% 1000ML 250 ML IV ONE (21:42)
--- NOTE | 2019-12-05 21:48 | Emergency Department Note ---
History of Present Illness General Chief complaint: Abdominal Pain Stated complaint: SICK IN STOMACH, AWFUL HEADACHE Time Seen by Provider: 12/05/19 21:32 Source: patient Mode of arrival: ambulatory Limitations: no limitations History of Present Illness Maximum Pain Intensity: 9 This patient comes in complaint of a headache and nausea. I did see him yesterday with similar complaints and he had extensive work-up including a CAT scan of his head. It was noted that his sodium was significantly low at 127 which was new for him. He did receive IV hydration additionally his potassium was also low when he received p.o. potassium. I talked to him at length and strongly suggested that he should come in the hospital for further treatment and evaluation PE he adamantly declines and was encouraged to increase his sodium and potassium dietarily. His symptoms persist he did receive Toradol and Zofran last night and tolerated well which seemed to help the headache. He has had no fever or any shortness of breath beyond his baseline allergies. No known exposure to COVID. No pain or swelling his legs. No focal numbness weakness. No change in vision. He also had a normal sed rate yesterday. Home Medications Home Medications Medication Instructions Recorded Confirmed Type albuterol sulfate 90 mcg/actuation 2 puff INHALATION Q4H PRN #6.7 gm 02/25/19 12/05/19 Rx aerosol inhaler amlodipine 5 mg tablet 5 mg PO DAILY #90 tab 02/25/19 12/05/19 Rx aspirin 81 mg tablet,delayed 81 mg PO DAILY #1 tab 02/25/19 12/05/19 Rx release atorvastatin 10 mg tablet 10 mg PO DAILY #90 tab 02/25/19 12/05/19 Rx beclomethasone dipropionate 40 2 inh INTRANASAL DAILY #6.8 gm 02/25/19 12/05/19 Rx mcg/actuation nasal HFA inhaler epinephrine 0.3 mg/0.3 mL 0.3 mg IM Q15M #1 ea 02/25/19 12/05/19 Rx injection, auto-injector levothyroxine 100 mcg tablet 100 mcg PO DAILY 90 Days #90 tab 02/25/19 12/05/19 Rx metformin 1,000 mg tablet 1,000 mg PO BID #90 tab 02/25/19 12/05/19 Rx mometasone 50 mcg/actuation nasal 2 spray INTRANASAL DAILY #17 gm 02/25/19 12/05/19 Rx spray montelukast 10 mg tablet 10 mg PO QAM #90 tab 02/25/19 12/05/19 Rx omeprazole 20 mg capsule,delayed 20 mg PO DAILY #1 cap 02/25/19 12/05/19 Rx release tadalafil 20 mg tablet 20 mg PO DAILY PRN #90 tab 02/25/19 12/05/19 Rx tiotropium bromide 18 mcg capsule 1 cap INHALATION DAILY AFTERNOON 02/25/19 12/05/19 Rx with inhalation device #1 inhaler azelastine 1 spray INTRANASAL BID 06/29/19 12/05/19 History budesonide [Pulmicort] 1 mg INHALATION DAILY 06/29/19 12/05/19 History cetirizine 10 mg PO DAILY PRN 06/29/19 12/05/19 History doxazosin 2 mg PO HS 06/29/19 12/05/19 History hydrochlorothiazide 12.5 mg PO DAILY 06/29/19 12/05/19 History fluticasone furoate 200 1 inh INHALATION DAILY #28 ea 07/27/19 12/05/19 Rx mcg-vilanterol 25 mcg/dose inhalation powder omalizumab 150 mg/mL subcutaneous 300 mg SUBCUT Q4WK #2 syr 09/08/19 12/05/19 Rx syringe ipratropium-albuterol 3 ml INHALATION QID PRN 12/05/19 12/05/19 History prednisone 5 mg PO DAILY 12/05/19 12/05/19 History tadalafil [Cialis] 20 mg PO DAILY PRN 12/05/19 12/05/19 History Allergies Allergy/AdvReac Type Severity Reaction Status Date / Time cat dander Allergy Unknown watery eyes Verified 12/05/19 22:11 No Known Drug Allergies Allergy Unknown . Verified 06/29/19 12:51 SUJATHA Inhibitors AdvReac Cough Verified 12/05/19 22:11 Past Med/Surg History Social History Preferred Language: Hebrew Communication Ability: Effective Orthopaedic Nurse Required: Yes Beliefs That Will Affect Care: None marital status: Current Living Situation: Spouse current occupational status: retired Feels Safe at Home: Yes Smoking Status: Never smoker Second Hand Exposure: No ; Hx Alcohol Use: No Hx Substance Use: No Review of Systems A total of 10 systems reviewed and were otherwise negative Physical Exam Vital Signs Vital Signs - 24 hr 12/05/19 21:13 12/05/19 21:22 12/05/19 21:30 Temperature 36.3 C L Temperature Source Oral Pulse Rate 101 H 97 H 102 H Pulse Rate from SpO2 Sensor 99 H 101 H Pulse Rhythm Respiratory Rate 22 20 24 Respiratory Effort / Characteristics Non-Labored Spontaneous Respiratory Depth Normal Blood Pressure 170/95 H 168/104 H 142/96 H Blood Pressure Mean 120 118 120 Blood Pressure Position Sitting Pulse Oximetry 94 95 94 Oxygen Delivery Method Room Air Room Air Room Air Sepsis Recent Fever Within 48 Hours No Sepsis Action Taken by Nursing No Action Required 12/05/19 21:56 12/05/19 22:00 12/05/19 22:30 Temperature Temperature Source Pulse Rate 101 H 97 H 97 H Pulse Rate from SpO2 Sensor 97 H Pulse Rhythm Regular Respiratory Rate 22 22 18 Respiratory Effort / Characteristics Respiratory Depth Blood Pressure 150/96 H 128/98 Blood Pressure Mean 108 105 Blood Pressure Position Pulse Oximetry 94 94 Oxygen Delivery Method Room Air Room Air Sepsis Recent Fever Within 48 Hours Sepsis Action Taken by Nursing 12/05/19 23:01 12/05/19 23:31 Temperature Temperature Source Pulse Rate 99 H 110 H Pulse Rate from SpO2 Sensor 98 H 107 H Pulse Rhythm Respiratory Rate 21 14 Respiratory Effort / Characteristics Respiratory Depth Blood Pressure 126/101 H 137/104 H Blood Pressure Mean 111 122 Blood Pressure Position Pulse Oximetry 94 92 Oxygen Delivery Method Room Air Room Air Sepsis Recent Fever Within 48 Hours Sepsis Action Taken by Nursing General: Well developed well nourished middle-age male who appears in no acute distress, breathing comfortably on room air. Normal speech HEENT: Normal cephalic atraumatic. Pupils are equal round and reactive to light. Sclera anicteric. Extraocular movements are intact. Oropharynx is pink with moist mucous membranes. No swelling of the mouth lips or tongue. No tenderness over the temporal arteries Neck: Supple with a midline trachea. No meningeal signs or stiffness, no JVD or bruits. No Stridor. Chest: Clear to auscultation bilaterally. No wheezes or rhonchi. No increased work of breathing. Heart: Regular rate and rhythm without murmurs or gallops. Abdomen: Soft nontender, nondistended without rebound guarding or rigidity. Extremities: No cyanosis clubbing or edema. No calf tenderness or assymetry Spine/Back. Non tender to palpation. No CVA tenderness Skin: Good turgor without rashes. Neurologic exam: Cranial nerves two through 12 are intact. Motor and sensation are intact and symmetrical throughout. No tremor. Course Administered Medications Discontinued Medications Doxazosin Mesylate (Cardura) 2 mg PO NOW STA Stop: 12/06/19 00:10 Last Admin: 12/06/19 00:22 Dose: 2 mg Documented by: [id number] Sodium Chloride (Nss 1000ml) 250 mls @ 999 mls/hr IV .Q16M ONE Stop: 12/05/19 21:57 Last Infusion: 12/05/19 22:27 Dose: 0 mls/hr Documented by: [id number] Admin: 12/05/19 22:10 Dose: 999 mls/hr Documented by: [id number] Ketorolac Tromethamine (Toradol) 15 mg IV NOW ONE Stop: 12/05/19 21:43 Last Admin: 12/05/19 22:10 Dose: 15 mg Documented by: [id number] Ondansetron HCl (Zofran) 4 mg IV NOW STA Stop: 12/05/19 21:43 Last Admin: 12/05/19 22:10 Dose: 4 mg Documented by: [id number] Potassium Chloride (Klor-Con M20) 40 meq PO NOW STA Stop: 12/05/19 23:58 Last Admin: 12/06/19 00:21 Dose: 40 meq Documented by: [id number] Medical Decision Making Differential Diagnosis Includes but is not limited to: Hyponatremia, hypokalemia, infection, electrolyte or metabolic abnormality, trauma, arrhythmia Medical Records Attestation: I reviewed the patient's medical records. Home Medications Current Medication List: was personally reviewed by me Laboratory Data Attestation: I reviewed the patient's lab results. Result diagrams: 12/05/19 22:00 12/05/19 22:00 Lab Results 12/05/19 12/05/19 12/05/19 Range/Units 22:00 22:00 22:00 WBC 8.08 (4.8-10.8) K/uL RBC 4.89 (4.7-6.1) M/uL Hgb 15.3 (14.0-18.0) g/dL Hct 41.5 L (42-52) % MCV 84.9 (80-100) fL MCH 31.3 (25-34) pg MCHC 36.9 H (32-36) g/dL RDW Std Deviation 41.6 (36.4-46.3) fL RDW Coeff of Zainab 13.6 (11.5-14.5) % Plt Count 301 (130-400) K/uL MPV 9.6 (7.4-10.4) fL Immature Gran % (Auto) 0.2 % Neut % (Auto) 63.6 % Lymph % (Auto) 20.9 % [place] % (Auto) 14.2 % Eos % (Auto) 0.9 % Baso % (Auto) 0.2 % Immature Gran # (Auto) 0.02 (0.00-0.02) K/uL Neut # (Auto) 5.13 (1.4-6.5) K/uL Lymph # (Auto) 1.69 (1.2-3.4) K/uL [place] # (Auto) 1.15 H (0.11-0.59) K/uL Eos # (Auto) 0.07 (0-0.5) K/uL Baso # (Auto) 0.02 (0-0.2) K/uL Sodium 126 L (136-145) mmol/L Potassium 3.4 L (3.5-5.1) mmol/L Chloride 92 L (98-107) mmol/L Carbon Dioxide 23 (21-32) mmol/L Anion Gap 10.0 (3-11) BUN 12 (7-18) mg/dl Creatinine 0.77 (0.6-1.4) mg/dl Est Cr Clr Drug Dosing 77.9 ml/min Est GFR ( Amer) 104.3 Est GFR (Non-Af Amer) 90.0 BUN/Creatinine Ratio 15.5 (10-20) Glucose 120 H (70-99) mg/dl Osmolality 266 L (280-300) mOsm/kg Calcium 8.3 L (8.5-10.1) mg/dl Magnesium 1.7 L (1.8-2.4) mg/dl Total Bilirubin 0.5 (0.2-1) mg/dl AST 20 (15-37) U/L ALT 56 (12-78) U/L Alkaline Phosphatase 30 L (45-117) U/L Troponin I < 0.015 (0-0.045) ng/ml Total Protein 7.5 (6.4-8.2) gm/dl Albumin 4.3 (3.4-5.0) gm/dl Globulin 3.2 (2.5-4.0) gm/dl Albumin/Globulin Ratio 1.3 (0.9-2) Lipase (73-393) U/L TSH 1.190 (0.300-4.500) uIu/ml 12/05/19 Range/Units 22:00 WBC (4.8-10.8) K/uL RBC (4.7-6.1) M/uL Hgb (14.0-18.0) g/dL Hct (42-52) % MCV (80-100) fL MCH (25-34) pg MCHC (32-36) g/dL RDW Std Deviation (36.4-46.3) fL RDW Coeff of Zainab (11.5-14.5) % Plt Count (130-400) K/uL MPV (7.4-10.4) fL Immature Gran % (Auto) % Neut % (Auto) % Lymph % (Auto) % [place] % (Auto) % Eos % (Auto) % Baso % (Auto) % Immature Gran # (Auto) (0.00-0.02) K/uL Neut # (Auto) (1.4-6.5) K/uL Lymph # (Auto) (1.2-3.4) K/uL [place] # (Auto) (0.11-0.59) K/uL Eos # (Auto) (0-0.5) K/uL Baso # (Auto) (0-0.2) K/uL Sodium (136-145) mmol/L Potassium (3.5-5.1) mmol/L Chloride (98-107) mmol/L Carbon Dioxide (21-32) mmol/L Anion Gap (3-11) BUN (7-18) mg/dl Creatinine (0.6-1.4) mg/dl Est Cr Clr Drug Dosing ml/min Est GFR ( Amer) Est GFR (Non-Af Amer) BUN/Creatinine Ratio (10-20) Glucose (70-99) mg/dl Osmolality (280-300) mOsm/kg Calcium (8.5-10.1) mg/dl Magnesium (1.8-2.4) mg/dl Total Bilirubin (0.2-1) mg/dl AST (15-37) U/L ALT (12-78) U/L Alkaline Phosphatase (45-117) U/L Troponin I (0-0.045) ng/ml Total Protein (6.4-8.2) gm/dl Albumin (3.4-5.0) gm/dl Globulin (2.5-4.0) gm/dl Albumin/Globulin Ratio (0.9-2) Lipase 97 (73-393) U/L TSH (0.300-4.500) uIu/ml Imaging Data Radiologist's Impression: Chest x-ray, no acute findings seen. Please refer to radiology report ECG Data Attestation: I personally reviewed and interpreted this ECG as follows: Indication: + nausea, + vomiting and + weakness Rate (beats per minute): 95 Rhythm: + normal sinus ECG Intervals/blocks: + Normal QRS, + Normal QT and + Normal DC ECG [place]: + Normal ECG ST segments: + Normal ST segments ECG Findings: no PACs and no PVCs Comparison ECG Date: from (12/06/19) Change: no significant change Blood Pressure Blood Pressure Findings: Elevated blood pressure Blood Pressure Disposition: elevated BP felt to be situational MDM Narrative This patient comes in with symptoms that are similar to yesterday. As outlined above he declined admission. Yesterday was noted to have a low sodium which may be causing his symptoms. IV access established. I did order EKG and repeat blood testing as well as a chest x-ray. He does have some crackles in the bases on chest x-ray so he was only initially given 250 cc bolus IV. Multiple blood testing was obtained and he was reassessed frequently. He was placed on a monitor technician given concern for electrolyte abnormalities. He was feeling somewhat better after having the IV fluids as well as Toradol 15 mg IV and Zofran 4 mg IV. His sodium is again low slightly lower today at 126. Potassium is also mildly low at 3.4 though better than yesterday. He has nothing to suggest significant arrhythmia. He has nothing to suggest infection. He has no COVID-like symptoms. The low sodium may indeed be causing his symptoms. I do think he needs to be admitted/observed and I have consulted the [facility] hospitalist to see him in the ER for these measures. Continuous cardiac monitoring: An order was placed in the computer for cardiac monitoring due to concern for electrolyte abnormalities. Upon my interpretation, he was noted to be in sinus tachycardia with a rate of 101. Impression & Plan Acute hyponatremia, Headache, Nausea & vomiting, Hypokalemia Discharge Plan Visit Data Chief Complaint: Abdominal Pain Stated Complaint: SICK IN STOMACH, AWFUL HEADACHE ED Provider: Kishore Mohr Discharge Problem: Acute hyponatremia, Headache, Nausea & vomiting, Hypokalemia Discharge Instructions Interventions: ED Discharge Assessment Last Done: 12/06/19 00:50 Discharge Problem: Headache Qualifiers: Headache type: unspecified Headache chronicity pattern: acute headache Intractability: not intractable Qualified Code(s): R51 - Headache Nausea & vomiting Qualifiers: Vomiting type: unspecified Vomiting Intractability: non-intractable Qualified Code(s): R11.2 - Nausea with vomiting, unspecified
--- NOTE | 2019-12-05 22:31 | XRay Report ---
XR chest 1V portable CLINICAL HISTORY: 74 years-old Male presenting with weakness. TECHNIQUE: Portable upright AP view of the chest was obtained. COMPARISON: 06/30/2019. FINDINGS: Atherosclerosis of the aortic arch. Cardiac silhouette enlarged. Elevation of the hemidiaphragms, rig ht greater than left, unchanged from prior. Minimal bibasilar opacities. No pleural effusion or pneum othorax. Degenerative changes of the thoracic spine. Upper abdomen normal. IMPRESSION: 1. Cardiomegaly. No significant volume overload or congestive change. 2. Low lung volumes with bibasilar atelectasis. 3. No change from prior. ACT 112: Negative or not required by law. Electronically signed by: Marty Damon M.D. 12/05/2019 10:30 PM
[2019-12-05 22:43] LABS: Basophils # (auto) 0.02 K/uL (0-0.2); Basophils % (auto) 0.2 %; Eosinophils # (auto) 0.07 K/uL (0-0.5); Eosinophils % (auto) 0.9 %; Hematocrit (blood only) 41.5 % (42-52); Hemoglobin 15.3 g/dL (14.0-18.0); Immature Granulocytes # (auto) 0.02 K/uL (0.00-0.02); Immature Granulocytes % (auto) 0.2 %; Lymphocytes # (auto) 1.69 K/uL (1.2-3.4); Lymphocytes % (auto) 20.9 %; Mean Corpuscular Hemoglobin 31.3 pg (25-34); Mean Corpuscular Hgb Conc 36.9 g/dL (32-36); Mean Corpuscular Volume 84.9 fL (80-100); Mean Platelet Volume 9.6 fL (7.4-10.4); Monocytes # (auto) 1.15 K/uL (0.11-0.59); Monocytes % (auto) 14.2 %; Neutrophils # (auto) 5.13 K/uL (1.4-6.5); Neutrophils % (auto) 63.6 %; Platelet Count 301 K/uL (130-400); RDW Coefficient of Variation 13.6 % (11.5-14.5); RDW Standard Deviation 41.6 fL (36.4-46.3); Red Blood Count 4.89 M/uL (4.7-6.1); White Blood Count 8.08 K/uL (4.8-10.8)
[2019-12-05 22:51] LABS: Alanine Aminotransferase 56 U/L (12-78); Albumin Level 4.3 gm/dl (3.4-5.0); Aspartate Aminotransferase 20 U/L (15-37); BUN Creatinine Ratio 15.5 (10-20); Blood Urea Nitrogen 12 mg/dl (7-18); Calcium 8.3 mg/dl (8.5-10.1); Carbon Dioxide 23 mmol/L (21-32); Chloride 92 mmol/L (98-107); Creatinine Clr Calc Pharmacy 77.9 ml/min; Est GFR (African American) 104.3; Glucose 120 mg/dl (70-99); Magnesium 1.7 mg/dl (1.8-2.4); Potassium 3.4 mmol/L (3.5-5.1); Sodium 126 mmol/L (136-145)
[2019-12-05 23:02] LABS: Albumin Globulin Ratio 1.3 (0.9-2); Alkaline Phosphatase 30 U/L (45-117); Bilirubin,Total 0.5 mg/dl (0.2-1); Globulin 3.2 gm/dl (2.5-4.0); Total Protein 7.5 gm/dl (6.4-8.2); Troponin I < 0.015 ng/ml (0-0.045)
[2019-12-05] MEDS ORDERED: POTASSIUM CHLORIDE 20 MEQ TABCR PO STA (23:57)
[2019-12-05] MEDS ORDERED: PROMETHAZINE HCL 12.5 MG in SODIUM CHLORIDE 0.9% 50 ML IV PRN (23:57)
[2019-12-06] MEDS ORDERED: MoRPHine SULFATE 4 MG/ML 1 ML CARP\\VIAL IV PRN
[2019-12-06] MEDS ORDERED: DOXAZosin MESYLATE TAB 2 MG TAB PO STA (00:09)
--- NOTE | 2019-12-06 00:23 | Hospitalist Consultation ---
Date of Consultation December 06, 2019 History of Present Illness Allergies Allergy/AdvReac Type Severity Reaction Status Date / Time cat dander Allergy Unknown watery eyes Verified 12/05/19 22:11 No Known Drug Allergies Allergy Unknown . Verified 06/29/19 12:51 SUJATHA Inhibitors AdvReac Cough Verified 12/05/19 22:11 Home Medications Home Medications Medication Instructions Recorded Confirmed Type albuterol sulfate 90 mcg/actuation 2 puff INHALATION Q4H PRN #6.7 gm 02/25/19 12/05/19 Rx aerosol inhaler amlodipine 5 mg tablet 5 mg PO DAILY #90 tab 02/25/19 12/05/19 Rx aspirin 81 mg tablet,delayed 81 mg PO DAILY #1 tab 02/25/19 12/05/19 Rx release atorvastatin 10 mg tablet 10 mg PO DAILY #90 tab 02/25/19 12/05/19 Rx beclomethasone dipropionate 40 2 inh INTRANASAL DAILY #6.8 gm 02/25/19 12/05/19 Rx mcg/actuation nasal HFA inhaler epinephrine 0.3 mg/0.3 mL 0.3 mg IM Q15M #1 ea 02/25/19 12/05/19 Rx injection, auto-injector levothyroxine 100 mcg tablet 100 mcg PO DAILY 90 Days #90 tab 02/25/19 12/05/19 Rx metformin 1,000 mg tablet 1,000 mg PO BID #90 tab 02/25/19 12/05/19 Rx mometasone 50 mcg/actuation nasal 2 spray INTRANASAL DAILY #17 gm 02/25/19 12/05/19 Rx spray montelukast 10 mg tablet 10 mg PO QAM #90 tab 02/25/19 12/05/19 Rx omeprazole 20 mg capsule,delayed 20 mg PO DAILY #1 cap 02/25/19 12/05/19 Rx release tadalafil 20 mg tablet 20 mg PO DAILY PRN #90 tab 02/25/19 12/05/19 Rx tiotropium bromide 18 mcg capsule 1 cap INHALATION DAILY AFTERNOON 02/25/19 12/05/19 Rx with inhalation device #1 inhaler azelastine 1 spray INTRANASAL BID 06/29/19 12/05/19 History budesonide [Pulmicort] 1 mg INHALATION DAILY 06/29/19 12/05/19 History cetirizine 10 mg PO DAILY PRN 06/29/19 12/05/19 History doxazosin 2 mg PO HS 06/29/19 12/05/19 History hydrochlorothiazide 12.5 mg PO DAILY 06/29/19 12/05/19 History fluticasone furoate 200 1 inh INHALATION DAILY #28 ea 07/27/19 12/05/19 Rx mcg-vilanterol 25 mcg/dose inhalation powder omalizumab 150 mg/mL subcutaneous 300 mg SUBCUT Q4WK #2 syr 09/08/19 12/05/19 Rx syringe ipratropium-albuterol 3 ml INHALATION QID PRN 12/05/19 12/05/19 History prednisone 5 mg PO DAILY 12/05/19 12/05/19 History tadalafil [Cialis] 20 mg PO DAILY PRN 12/05/19 12/05/19 History Patient History Social History Preferred Language: Citizen Of [place] Communication Ability: Effective Health Science Instructor Required: Yes Beliefs That Will Affect Care: None marital status: Current Living Situation: Spouse current occupational status: retired Feels Safe at Home: Yes Smoking Status: Never smoker Second Hand Exposure: No ; Hx Alcohol Use: No Hx Substance Use: No Results & Data Results & Data ([facility]) Vital Signs (Past 12 Hours) Vital Signs Temp Pulse Resp BP Pulse Ox 12/05/19 23:31 110 H 14 137/104 H 92 12/05/19 23:01 99 H 21 126/101 H 94 12/05/19 22:30 97 H 18 128/98 94 12/05/19 22:00 97 H 22 150/96 H 12/05/19 21:56 101 H 22 94 12/05/19 21:30 102 H 24 142/96 H 94 12/05/19 21:22 97 H 20 168/104 H 95 12/05/19 21:13 36.3 C L 101 H 22 170/95 H 94 Laboratory Results Laboratory Results WBC 8.08 K/uL (4.8-10.8) 12/05/19 22:00 RBC 4.89 M/uL (4.7-6.1) 12/05/19 22:00 Hgb 15.3 g/dL (14.0-18.0) 12/05/19 22:00 Hct 41.5 % (42-52) L 12/05/19 22:00 MCV 84.9 fL (80-100) 12/05/19 22:00 MCH 31.3 pg (25-34) 12/05/19 22:00 MCHC 36.9 g/dL (32-36) H 12/05/19 22:00 RDW Std Deviation 41.6 fL (36.4-46.3) 12/05/19 22:00 RDW Coeff of Zainab 13.6 % (11.5-14.5) 12/05/19 22:00 Plt Count 301 K/uL (130-400) 12/05/19 22:00 MPV 9.6 fL (7.4-10.4) 12/05/19 22:00 Immature Gran % (Auto) 0.2 % 12/05/19 22:00 Neut % (Auto) 63.6 % 12/05/19 22:00 Lymph % (Auto) 20.9 % 12/05/19 22:00 [place] % (Auto) 14.2 % 12/05/19 22:00 Eos % (Auto) 0.9 % 12/05/19 22:00 Baso % (Auto) 0.2 % 12/05/19 22:00 Immature Gran # (Auto) 0.02 K/uL (0.00-0.02) 12/05/19 22:00 Neut # (Auto) 5.13 K/uL (1.4-6.5) 12/05/19 22:00 Lymph # (Auto) 1.69 K/uL (1.2-3.4) 12/05/19 22:00 [place] # (Auto) 1.15 K/uL (0.11-0.59) H 12/05/19 22:00 Eos # (Auto) 0.07 K/uL (0-0.5) 12/05/19 22:00 Baso # (Auto) 0.02 K/uL (0-0.2) 12/05/19 22:00 Sodium 126 mmol/L (136-145) L 12/05/19 22:00 Potassium 3.4 mmol/L (3.5-5.1) L 12/05/19 22:00 Chloride 92 mmol/L (98-107) L 05/09/20 22:00 Carbon Dioxide 23 mmol/L (21-32) 12/05/19 22:00 Anion Gap 10.0 (3-11) 12/05/19 22:00 BUN 12 mg/dl (7-18) 12/05/19 22:00 Creatinine 0.77 mg/dl (0.6-1.4) 12/05/19 22:00 Est Cr Clr Drug Dosing 77.9 ml/min 12/05/19 22:00 Est GFR ( Amer) 104.3 12/05/19 22:00 Est GFR (Non-Af Amer) 90.0 12/05/19 22:00 BUN/Creatinine Ratio 15.5 (10-20) 12/05/19 22:00 Glucose 120 mg/dl (70-99) H 12/05/19 22:00 Osmolality 266 mOsm/kg (280-300) L 12/05/19 22:00 Calcium 8.3 mg/dl (8.5-10.1) L 12/05/19 22:00 Magnesium 1.7 mg/dl (1.8-2.4) L 12/05/19 22:00 Total Bilirubin 0.5 mg/dl (0.2-1) 12/05/19 22:00 AST 20 U/L (15-37) 12/05/19 22:00 ALT 56 U/L (12-78) 12/05/19 22:00 Alkaline Phosphatase 30 U/L (45-117) L 12/05/19 22:00 Troponin I < 0.015 ng/ml (0-0.045) 12/05/19 22:00 Total Protein 7.5 gm/dl (6.4-8.2) 12/05/19 22:00 Albumin 4.3 gm/dl (3.4-5.0) 12/05/19 22:00 Globulin 3.2 gm/dl (2.5-4.0) 12/05/19 22:00 Albumin/Globulin Ratio 1.3 (0.9-2) 12/05/19 22:00 Lipase 97 U/L (73-393) 12/05/19 22:00 TSH 1.190 uIu/ml (0.300-4.500) 12/05/19 22:00
[2019-12-06] MEDS ORDERED: CETIRIZINE HCL 10 MG TABLET PO PRN (01:01)
[2019-12-06] MEDS ORDERED: GLUCOSE 40% GEL 15 GM TUBE PO PRN (01:01)
[2019-12-06] MEDS ORDERED: GLUCOSE 10 TABS/TUBE PO PRN (01:01)
[2019-12-06] MEDS ORDERED: CARBOHYDRATES FOR HYPOGLYCEMIA PO PRN (01:01)
[2019-12-06] MEDS ORDERED: DEXTROSE 50% 50 ML SYRINGE IV PRN (01:01)
[2019-12-06] MEDS ORDERED: GLUCAGON FOR INJ 1 MG VIAL SQ PRN (01:01)
[2019-12-06] MEDS ORDERED: MAGNESIUM SULFATE / D5W 1 GM/100 ML BAG IV ONE (01:30)
--- NOTE | 2019-12-06 01:55 | History & Physical Report ---
Date of Service December 06, 2019 Assessment & Plan (1) Acute hyponatremia: Secondary to poor p.o. 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 It may contain grammatical or spelling errors. Kindly contact undersigned for clarification of any documentation item in question. Admission and Anticipated Discharge Date Admission Date: December 06, 2019 History of Present Illness Chief Complaint: Headache, nausea Primary Care Provider: Dr. Mccauley History obtained from patient and records. 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 Last confinement June 2019 for atypical pneumonia/bronchitis. 2 days history of achy headache symptoms between the eyes with some nausea and emesis. No chest pain, no S OB. No fever, no chills. Denies abdominal pain. Chronic loose stools. Denies flulike symptoms. No prior episodes. No new medications except for tadalafil taken for erectile dysfunction 2 weeks ago which patient stopped because of headache symptoms. Patient seen at the ER 2 days ago. Serum sodium was noted to be 127. Admission recommended by ER provider but patient refused. Patient returned to the ER for worsening symptoms. 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 Verified 06/29/19 12:51 SUJATHA Inhibitors AdvReac Cough Verified 12/05/19 22:11 Home Medications Home Medications Medication Instructions Recorded Confirmed Type albuterol sulfate 90 mcg/actuation 2 puff INHALATION Q4H PRN #6.7 gm 02/25/19 12/05/19 Rx aerosol inhaler amlodipine 5 mg tablet 5 mg PO DAILY #90 tab 02/25/19 12/05/19 Rx aspirin 81 mg tablet,delayed 81 mg PO DAILY #1 tab 02/25/19 12/05/19 Rx release atorvastatin 10 mg tablet 10 mg PO DAILY #90 tab 02/25/19 12/05/19 Rx beclomethasone dipropionate 40 2 inh INTRANASAL DAILY #6.8 gm 02/25/19 12/05/19 Rx mcg/actuation nasal HFA inhaler epinephrine 0.3 mg/0.3 mL 0.3 mg IM Q15M #1 ea 02/25/19 12/05/19 Rx injection, auto-injector levothyroxine 100 mcg tablet 100 mcg PO DAILY 90 Days #90 tab 02/25/19 12/05/19 Rx metformin 1,000 mg tablet 1,000 mg PO BID #90 tab 02/25/19 12/05/19 Rx mometasone 50 mcg/actuation nasal 2 spray INTRANASAL DAILY #17 gm 02/25/19 12/05/19 Rx spray montelukast 10 mg tablet 10 mg PO QAM #90 tab 02/25/19 12/05/19 Rx omeprazole 20 mg capsule,delayed 20 mg PO DAILY #1 cap 02/25/19 12/05/19 Rx release tadalafil 20 mg tablet 20 mg PO DAILY PRN #90 tab 02/25/19 12/05/19 Rx tiotropium bromide 18 mcg capsule 1 cap INHALATION DAILY AFTERNOON 02/25/19 12/05/19 Rx with inhalation device #1 inhaler azelastine 1 spray INTRANASAL BID 06/29/19 12/05/19 History budesonide [Pulmicort] 1 mg INHALATION DAILY 06/29/19 12/05/19 History cetirizine 10 mg PO DAILY PRN 06/29/19 12/05/19 History doxazosin 2 mg PO HS 06/29/19 12/05/19 History hydrochlorothiazide 12.5 mg PO DAILY 06/29/19 12/05/19 History fluticasone furoate 200 1 inh INHALATION DAILY #28 ea 07/27/19 12/05/19 Rx mcg-vilanterol 25 mcg/dose inhalation powder omalizumab 150 mg/mL subcutaneous 300 mg SUBCUT Q4WK #2 syr 09/08/19 12/05/19 Rx syringe ipratropium-albuterol 3 ml INHALATION QID PRN 12/05/19 12/05/19 History prednisone 5 mg PO DAILY 12/05/19 12/05/19 History tadalafil [Cialis] 20 mg PO DAILY PRN 12/05/19 12/05/19 History Past Med/Surg History Social History Preferred Language: Mohawk Communication Ability: Effective 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 Beliefs That Will Affect Care: None marital status: Current Living Situation: Spouse current occupational status: retired Other Information That Helps Us Care for You: No Feels Safe at Home: Yes Safety Concerns: Feels Safe At This Time Smoking Status: Never smoker Do You Dip or Chew Tobacco: No ; Second Hand Exposure: Yes ; Hx Alcohol Use: No Hx Substance Use: No Review of Systems Review of Systems: As per HPI, all 10 systems reviewed, all other ROS negative Physical Exam Physical Exam: GENERAL: slightly uncomfortable and anxious, obese, slightly hard of hearing, no respiratory distress SKIN: Normal color, warm HEENT: [place] palpebral conjunctivae, no ptosis, dry buccal mucosa NECK : Supple, short neck, no tenderness CHEST : CTA, no tenderness HEART : Tachycardic, no obvious murmurs ABDOMEN: Some distention, nontender EXTREMITIES : No LE swelling/tenderness, no other conspicuous deformities noted NEUROLOGIC : Coherent, no facial asymmetry, no other gross focality Results & Data Results & Data ([facility]) Vital Signs (Past 12 Hours) Vital Signs Temp Pulse Resp BP Pulse Ox 12/06/19 00:50 110 H 16 137/100 93 12/05/19 23:31 110 H 14 137/104 H 92 12/05/19 23:01 99 H 21 126/101 H 94 12/05/19 22:30 97 H 18 128/98 94 12/05/19 22:00 97 H 22 150/96 H 12/05/19 21:56 101 H 22 94 12/05/19 21:30 102 H 24 142/96 H 94 12/05/19 21:22 97 H 20 168/104 H 95 12/05/19 21:13 36.3 C L 101 H 22 170/95 H 94 Laboratory Results Laboratory Results WBC 8.08 K/uL (4.8-10.8) 12/05/19 22:00 RBC 4.89 M/uL (4.7-6.1) 12/05/19 22:00 Hgb 15.3 g/dL (14.0-18.0) 12/05/19 22:00 Hct 41.5 % (42-52) L 12/05/19 22:00 MCV 84.9 fL (80-100) 12/05/19 22:00 MCH 31.3 pg (25-34) 12/05/19 22:00 MCHC 36.9 g/dL (32-36) H 12/05/19 22:00 RDW Std Deviation 41.6 fL (36.4-46.3) 12/05/19 22:00 RDW Coeff of Zainab 13.6 % (11.5-14.5) 12/05/19 22:00 Plt Count 301 K/uL (130-400) 12/05/19 22:00 MPV 9.6 fL (7.4-10.4) 12/05/19 22:00 Immature Gran % (Auto) 0.2 % 12/05/19 22:00 Neut % (Auto) 63.6 % 12/05/19 22:00 Lymph % (Auto) 20.9 % 12/05/19 22:00 [place] % (Auto) 14.2 % 12/05/19 22:00 Eos % (Auto) 0.9 % 12/05/19 22:00 Baso % (Auto) 0.2 % 12/05/19 22:00 Immature Gran # (Auto) 0.02 K/uL (0.00-0.02) 12/05/19 22:00 Neut # (Auto) 5.13 K/uL (1.4-6.5) 12/05/19 22:00 Lymph # (Auto) 1.69 K/uL (1.2-3.4) 12/05/19 22:00 [place] # (Auto) 1.15 K/uL (0.11-0.59) H 12/05/19 22:00 Eos # (Auto) 0.07 K/uL (0-0.5) 12/05/19 22:00 Baso # (Auto) 0.02 K/uL (0-0.2) 12/05/19 22:00 Sodium 126 mmol/L (136-145) L 12/05/19 22:00 Potassium 3.4 mmol/L (3.5-5.1) L 12/05/19 22:00 Chloride 92 mmol/L (98-107) L 12/05/19 22:00 Carbon Dioxide 23 mmol/L (21-32) 12/05/19 22:00 Anion Gap 10.0 (3-11) 12/05/19 22:00 BUN 12 mg/dl (7-18) 12/05/19 22:00 Creatinine 0.77 mg/dl (0.6-1.4) 12/05/19 22:00 Est Cr Clr Drug Dosing 77.9 ml/min 12/05/19 22:00 Est GFR ( Amer) 104.3 12/05/19 22:00 Est GFR (Non-Af Amer) 90.0 12/05/19 22:00 BUN/Creatinine Ratio 15.5 (10-20) 12/05/19 22:00 Glucose 120 mg/dl (70-99) H 12/05/19 22:00 Osmolality 266 mOsm/kg (280-300) L 12/05/19 22:00 Calcium 8.3 mg/dl (8.5-10.1) L 12/05/19 22:00 Magnesium 1.7 mg/dl (1.8-2.4) L 12/05/19 22:00 Total Bilirubin 0.5 mg/dl (0.2-1) 12/05/19 22:00 AST 20 U/L (15-37) 12/05/19 22:00 ALT 56 U/L (12-78) 12/05/19 22:00 Alkaline Phosphatase 30 U/L (45-117) L 12/05/19 22:00 Troponin I < 0.015 ng/ml (0-0.045) 12/05/19 22:00 Total Protein 7.5 gm/dl (6.4-8.2) 12/05/19 22:00 Albumin 4.3 gm/dl (3.4-5.0) 12/05/19 22:00 Globulin 3.2 gm/dl (2.5-4.0) 12/05/19 22:00 Albumin/Globulin Ratio 1.3 (0.9-2) 12/05/19 22:00 Lipase 97 U/L (73-393) 12/05/19 22:00 TSH 1.190 uIu/ml (0.300-4.500) 12/05/19 22:[address] head initial read: Involutional changes. Chronic changes of small vessel ischemic disease. Trace fluid right maxillary sinus. Chest x-ray : 1. Cardiomegaly. No significant volume overload or congestive change. 2. Low lung volumes with bibasilar atelectasis. 3. No change from prior. EKG as per my interpretation : Rate 95, NSR, normal axis, T wave flattening inferior leads
[2019-12-06] MEDS: INSULIN ASPART 100 UNITS/ML 3 ML PEN SC SCH ×5 (02:12→21:19)
[2019-12-06] MEDS: AMLODIPINE BESYLATE 5 MG TAB PO SCH (02:21)
[2019-12-06 04:22] LABS: Appearance Urine Clear (Clear); Bilirubin Urine Negative (Negative); Blood Urine Negative (Negative); Color Urine Yellow; Glucose Urine UA Negative (Negative); Ketones Urine 1+ (Negative); Leukocyte Esterase Urine Negative (Negative); Nitrite Urine Negative (Negative); Protein Urine Negative (Negative); Specific Gravity Urine 1.015 (1.000-1.030); Urobilinogen Urine Negative (Negative)
[2019-12-06 05:24] LABS: Basophils # (auto) 0.03 K/uL (0-0.2); Basophils % (auto) 0.4 %; Eosinophils # (auto) 0.08 K/uL (0-0.5); Eosinophils % (auto) 1.1 %; Hematocrit (blood only) 41.8 % (42-52); Hemoglobin 15.2 g/dL (14.0-18.0); Immature Granulocytes # (auto) 0.03 K/uL (0.00-0.02); Immature Granulocytes % (auto) 0.4 %; Lymphocytes # (auto) 1.84 K/uL (1.2-3.4); Lymphocytes % (auto) 24.9 %; Mean Corpuscular Hemoglobin 30.8 pg (25-34); Mean Corpuscular Hgb Conc 36.4 g/dL (32-36); Mean Corpuscular Volume 84.8 fL (80-100); Mean Platelet Volume 8.9 fL (7.4-10.4); Monocytes % (auto) 14.9 %; Neutrophils # (auto) 4.32 K/uL (1.4-6.5); Neutrophils % (auto) 58.3 %; Platelet Count 280 K/uL (130-400); RDW Coefficient of Variation 13.5 % (11.5-14.5); RDW Standard Deviation 41.4 fL (36.4-46.3); Red Blood Count 4.93 M/uL (4.7-6.1)
[2019-12-06] MEDS ORDERED: CALCIUM GLUCONATE 10% 1,000 MG in SODIUM CHLORIDE 0.9% 50 ML IV STA (05:34)
[2019-12-06 06:02] LABS: BUN Creatinine Ratio 11.3 (10-20); Calcium 8.3 mg/dl (8.5-10.1); Creatinine Clr Calc Pharmacy 70.7 ml/min; Est GFR (African American) 100.2; Est GFR (Non-African American) 86.4; Magnesium 2.1 mg/dl (1.8-2.4); Potassium 3.6 mmol/L (3.5-5.1)
[2019-12-06] MEDS: LEVOTHYROXINE SODIUM 100 MCG TABLET PO SCH (06:13)
[2019-12-06] MEDS: ACETAMINOPHEN 325 MG TAB PO PRN (06:15)
[2019-12-06] MEDS: OXYCODONE HCL IR 5 MG TAB (IMMEDIATE RELEASE) PO PRN ×4 (06:39→22:51)
--- NOTE | 2019-12-06 08:05 | CT Scan Report ---
CT OF THE HEAD WITHOUT CONTRAST CLINICAL HISTORY: Worsening headache. COMPARISON STUDY: Head CT December 04, 2019. CT DOSE: 537.48 mGy.cm TECHNIQUE: Helical axial images of the head were obtained without IV contrast. Automated exposure con trol was utilized for the study. A dose lowering technique was utilized adhering to the principles o f ALARA. FINDINGS: No acute intracranial hemorrhage, midline shift or mass effect is present. The ventricular system is unremarkable for stable. White matter hypodensity suggests small vessel disease. There are no findings to suggest acute dural sinus thrombosis or acute territorial infarct. Small air-fluid lev el is noted within visualized portions of the right maxillary sinus. There is no calvarial fracture. IMPRESSION: 1. No acute intracranial findings. No change in appearance of the brain. 2. Small air-fluid level within the right maxillary sinus. ACT 112: Negative or not required by law. Electronically signed by: Osmany Wilson M.D. 12/06/2019 8:04 AM
[2019-12-06] MEDS ORDERED: AMLODIPINE BESYLATE 5 MG TAB PO SCH (09:00)
[2019-12-06] MEDS ORDERED: MOMETASONE INTNAS SCH (09:00)
[2019-12-06] MEDS ORDERED: BUDESONIDE 1 MG INH SCH (09:00)
[2019-12-06] MEDS: FLUTICASONE/VILANTEROL 200/25MCG 14 PUFFS/INHALER INH SCH (09:13)
[2019-12-06] MEDS: ENOXAPARIN INJ 30 MG/0.3 ML SYR SQ SCH (09:14)
[2019-12-06] MEDS: predniSONE 5 MG TAB PO SCH (09:14)
[2019-12-06] MEDS: FLUTICASONE PROPIONATE NA SPR 16 GM BTL SCH (09:14)
[2019-12-06] MEDS: ASPIRIN 81 MG ECTAB PO SCH (09:14)
[2019-12-06] MEDS: ATORVASTATIN 10 MG TAB PO SCH (09:14)
[2019-12-06] MEDS: PANTOprazole 40 MG TAB PO SCH (09:15)
[2019-12-06] MEDS: MONTELUKAST SODIUM 10 MG TABLET PO SCH (09:15)
[2019-12-06] MEDS ORDERED: GADOBUTROL 7.5ML VIAL IV PRN (11:01)
--- NOTE | 2019-12-06 11:23 | Magnetic Resonance Report ---
MRI OF THE BRAIN WITHOUT AND WITH IV CONTRAST CLINICAL HISTORY: Headaches. COMPARISON STUDY: Head CT December 04, 2019 and December 06, 2019. TECHNIQUE: Utilizing a 1.5 Shivani magnet and dedicated coil, multiplanar, multiecho imaging of the br ain was performed pre and postcontrast administration. IV administration of 7.5 mL of Gadavist contr ast was uneventful. FINDINGS: There are no foci of restricted diffusion to suggest acute infarct. No acute intracranial h emorrhage, midline shift or mass effect is present. Mild ventricular dilatation is due to atrophy. Wh ite matter T2 hyperintense foci suggest moderate small vessel disease. The basilar cisterns are paten t. There are no extra-axial collections. No intracranial mass or pathologic enhancement is identified . Small air-fluid level within the right maxillary sinus is noted. Calvarial signal is unremarkable. There is no mastoid fluid. Flow-voids for the major intracranial vessels are present. IMPRESSION: 1. No acute intracranial findings. 2. No intracranial mass or pathologic enhancement. 3. Moderate atrophy and small vessel disease. 4. Small air-fluid level within the right maxillary sinus. ACT 112: Negative or not required by law. Electronically signed by: Osmany Wilson M.D. 12/06/2019 11:22 AM
[2019-12-06] MEDS: UMECLIDINIUM BROMIDE 62.5MCG/BLISTER 7 PUFFS/INHALER INH SCH (12:30)
--- NOTE | 2019-12-06 13:41 | Hospitalist Progress Note ---
Date of Service December 06, 2019 Assessment & Plan (1) Headache: 74-year-old male with history of a eosinophilic asthma, on chronic prednisone, allergic rhinitis, obstructive sleep apnea Diabetes, hypertension, hypothyroidism presenting with headache x3 days and hyponatremia. HEADACHE Likely secondary to migraine, exacerbated by dehydration secondary to nausea and vomiting Possibly from tadalafil? --Brain MRI: No acute process; moderate small vessel disease, ventricular atrophy --Headache improved with PRN analgesics and hydration overnight --Resume IV NSS Continue PRN oxycodone, will add PRN Toradol and tramadol We will advise to avoid tadalafil --Continue to monitor HYPONATREMIA --Likely hypovolemic secondary to vomiting --Sodium 127 again as of 11 AM Restart IV NSS@75 cc/h --Repeat PRP every 6 hours starting at 6 PM Goal is no more than 136 until tomorrow morning --HCTZ on hold HYPERTENSION --Initially elevated on admission Now improved --Continue usual amlodipine, doxazosin Hold HCTZ EOSINOPHILIC ASTHMA, ON CHRONIC PREDNISONE --Continue Advair, Pulmicort, montelukast ALLERGIC RHINITIS --Continue azelastine DIABETES TYPE 2 --On insulin sliding scale HYPOTHYROIDISM --Continue levothyroxine DVT prophylaxis --Lovenox 1 mg subcutaneous daily Disposition --Anticipate discharge to home tomorrow medically stable Admission and Anticipated Discharge Date Admission Date: December 06, 2019 Subjective Follow-up for headache, hyponatremia Seen sitting up in bed, appears tired, and somewhat anxious but not in distress Reports headache has improved now mild compared to severe on admission Mostly frontal region, pressure/throbbing, denies changes with vision, but headache worse with light No sinus congestion or drainage, denies focal weakness or numbness Nausea and vomiting also resolved No chest pain, shortness of breath, cough, sputum production, abdominal pain Denies any other symptoms Review of Systems Review of Systems: All systems reviewed & are unremarkable except as noted in HPI & below Physical Exam Physical Exam: General- oriented x 3, not in distress, speaks in sentences with no effort or accessory muscle use Head- atraumatic Eyes- PERRL, EOMI, anicteric ENT- oropharynx clear Neck- supple, no JVD, no adenopathy, no thyromegaly; carotids +2/2, no bruits appreciated Lungs- clear to auscultation bilaterally, no rales/wheezes Heart- normal rate, regular rhythm; no murmur, no gallop, no rub appreciated Abdomen- normal bowel sounds, nondistended, soft, nontender, no masses or hepatosplenomegaly Extremities- no pretibial edema, no calf tenderness; peripheral pulses intact Neuro- alert, oriented x 3; CN 2-12 grossly intact; motor 5/5 bilaterally;sensation 100% on all extremities; no other gross focal neurologic deficits Skin- warm & dry Results & Data Results & Data ([facility]) Vital Signs (Past 12 Hours) Vital Signs Temp Pulse Pulse Resp BP BP Pulse Ox 12/06/19 12:42 36.7 C 91 H 20 133/84 90 12/06/19 08:00 97 H 12/06/19 07:31 36.6 C 92 H 18 137/87 90 12/06/19 04:00 36.7 C 89 20 156/87 H 92 12/06/19 02:18 93 H 12/06/19 01:58 36.8 C 62 18 172/90 H 97 Laboratory Results Laboratory Results - last 24 hr 12/05/19 12/05/19 12/05/19 22:00 22:00 22:00 WBC 8.08 RBC 4.89 Hgb 15.3 Hct 41.5 L MCV 84.9 MCH 31.3 MCHC 36.9 H RDW Std Deviation 41.6 RDW Coeff of Zainab 13.6 Plt Count 301 MPV 9.6 Immature Gran % (Auto) 0.2 Neut % (Auto) 63.6 Lymph % (Auto) 20.9 [place] % (Auto) 14.2 Eos % (Auto) 0.9 Baso % (Auto) 0.2 Immature Gran # (Auto) 0.02 Neut # (Auto) 5.13 Lymph # (Auto) 1.69 [place] # (Auto) 1.15 H Eos # (Auto) 0.07 Baso # (Auto) 0.02 Sodium 126 L Potassium 3.4 L Chloride 92 L Carbon Dioxide 23 Anion Gap 10.0 BUN 12 Creatinine 0.77 Est Cr Clr Drug Dosing 77.9 Est GFR ( Amer) 104.3 Est GFR (Non-Af Amer) 90.0 BUN/Creatinine Ratio 15.5 Glucose 120 H POC Glucose Osmolality 266 L Calcium 8.3 L Magnesium 1.7 L Total Bilirubin 0.5 AST 20 ALT 56 Alkaline Phosphatase 30 L Troponin I < 0.015 Total Protein 7.5 Albumin 4.3 Globulin 3.2 Albumin/Globulin Ratio 1.3 Lipase TSH 1.190 Urine Color Urine Appearance Urine pH Ur Specific [place] Urine Protein Urine Glucose (UA) Urine Ketones Urine Blood Urine Nitrite Urine Bilirubin Urine Urobilinogen Ur Leukocyte Esterase Urine Osmolality Ur Random Sodium 12/05/19 12/06/19 12/06/19 22:00 01:48 04:12 WBC RBC Hgb Hct MCV MCH MCHC RDW Std Deviation RDW Coeff of Zainab Plt Count MPV Immature Gran % (Auto) Neut % (Auto) Lymph % (Auto) [place] % (Auto) Eos % (Auto) Baso % (Auto) Immature Gran # (Auto) Neut # (Auto) Lymph # (Auto) [place] # (Auto) Eos # (Auto) Baso # (Auto) Sodium Potassium Chloride Carbon Dioxide Anion Gap BUN Creatinine Est Cr Clr Drug Dosing Est GFR ( Amer) Est GFR (Non-Af Amer) BUN/Creatinine Ratio Glucose POC Glucose 108 H Osmolality Calcium Magnesium Total Bilirubin AST ALT Alkaline Phosphatase Troponin I Total Protein Albumin Globulin Albumin/Globulin Ratio Lipase 97 TSH Urine Color Yellow Urine Appearance Clear Urine pH 5.0 Ur Specific [place] 1.015 Urine Protein Negative Urine Glucose (UA) Negative Urine Ketones 1+ H Urine Blood Negative Urine Nitrite Negative Urine Bilirubin Negative Urine Urobilinogen Negative Ur Leukocyte Esterase Negative Urine Osmolality Ur Random Sodium 12/06/19 12/06/19 12/06/19 04:12 04:12 05:13 WBC 7.40 RBC 4.93 Hgb 15.2 Hct 41.8 L MCV 84.8 MCH 30.8 MCHC 36.4 H RDW Std Deviation 41.4 RDW Coeff of Zainab 13.5 Plt Count 280 MPV 8.9 Immature Gran % (Auto) 0.4 Neut % (Auto) 58.3 Lymph % (Auto) 24.9 [place] % (Auto) 14.9 Eos % (Auto) 1.1 Baso % (Auto) 0.4 Immature Gran # (Auto) 0.03 H Neut # (Auto) 4.32 Lymph # (Auto) 1.84 [place] # (Auto) 1.10 H Eos # (Auto) 0.08 Baso # (Auto) 0.03 Sodium Potassium Chloride Carbon Dioxide Anion Gap BUN Creatinine Est Cr Clr Drug Dosing Est GFR ( Amer) Est GFR (Non-Af Amer) BUN/Creatinine Ratio Glucose POC Glucose Osmolality Calcium Magnesium Total Bilirubin AST ALT Alkaline Phosphatase Troponin I Total Protein Albumin Globulin Albumin/Globulin Ratio Lipase TSH Urine Color Urine Appearance Urine pH Ur Specific [place] Urine Protein Urine Glucose (UA) Urine Ketones Urine Blood Urine Nitrite Urine Bilirubin Urine Urobilinogen Ur Leukocyte Esterase Urine Osmolality 344 L Ur Random Sodium 55 12/06/19 12/06/19 12/06/19 05:13 07:56 11:28 WBC RBC Hgb Hct MCV MCH MCHC RDW Std Deviation RDW Coeff of Zainab Plt Count MPV Immature Gran % (Auto) Neut % (Auto) Lymph % (Auto) [place] % (Auto) Eos % (Auto) Baso % (Auto) Immature Gran # (Auto) Neut # (Auto) Lymph # (Auto) [place] # (Auto) Eos # (Auto) Baso # (Auto) Sodium 129 L Potassium 3.6 Chloride 95 L Carbon Dioxide 26 Anion Gap 8.0 BUN 10 Creatinine 0.85 Est Cr Clr Drug Dosing 70.7 Est GFR ( Amer) 100.2 Est GFR (Non-Af Amer) 86.4 BUN/Creatinine Ratio 11.3 Glucose 108 H POC Glucose 120 H 147 H Osmolality Calcium 8.3 L Magnesium 2.1 Total Bilirubin AST ALT Alkaline Phosphatase Troponin I Total Protein Albumin Globulin Albumin/Globulin Ratio Lipase TSH Urine Color Urine Appearance Urine pH Ur Specific [place] Urine Protein Urine Glucose (UA) Urine Ketones Urine Blood Urine Nitrite Urine Bilirubin Urine Urobilinogen Ur Leukocyte Esterase Urine Osmolality Ur Random Sodium 12/06/19 11:40 WBC RBC Hgb Hct MCV MCH MCHC RDW Std Deviation RDW Coeff of Zainab Plt Count MPV Immature Gran % (Auto) Neut % (Auto) Lymph % (Auto) [place] % (Auto) Eos % (Auto) Baso % (Auto) Immature Gran # (Auto) Neut # (Auto) Lymph # (Auto) [place] # (Auto) Eos # (Auto) Baso # (Auto) Sodium 127 L Potassium Chloride Carbon Dioxide Anion Gap BUN Creatinine Est Cr Clr Drug Dosing Est GFR ( Amer) Est GFR (Non-Af Amer) BUN/Creatinine Ratio Glucose POC Glucose Osmolality Calcium Magnesium Total Bilirubin AST ALT Alkaline Phosphatase Troponin I Total Protein Albumin Globulin Albumin/Globulin Ratio Lipase TSH Urine Color Urine Appearance Urine pH Ur Specific [place] Urine Protein Urine Glucose (UA) Urine Ketones Urine Blood Urine Nitrite Urine Bilirubin Urine Urobilinogen Ur Leukocyte Esterase Urine Osmolality Ur Random Sodium (1) Headache Headache chronicity pattern: acute headache Headache type: unspecified Intractability: not intractable Qualified Code(s): R51 - Headache
[2019-12-06] MEDS: SODIUM CHLORIDE 0.9% 1000ML 1,000 ML IV SCH (13:52)
[2019-12-06 18:27] LABS: BUN Creatinine Ratio 11.2 (10-20); Calcium 8.2 mg/dl (8.5-10.1); Creatinine Clr Calc Pharmacy 60.7 ml/min; Est GFR (African American) 87.2; Est GFR (Non-African American) 75.2; Potassium 3.6 mmol/L (3.5-5.1)
[2019-12-06] MEDS: DOXAZosin MESYLATE TAB 2 MG TAB PO SCH (21:19)
--- NOTE | 2019-12-06 22:55 | Electrocardiogram Report ---
Test Reason : Blood Pressure : / mmHG Vent. Rate : 095 BPM Atrial Rate : 095 BPM P-R Int : 158 ms QRS Dur : 072 ms QT Int : 362 ms P-R-T Axes : 038 011 041 degrees QTc Int : 454 ms Normal sinus rhythm Cannot rule out Anterior infarct , age undetermined Abnormal ECG When compared with ECG of 04-DEC-2019 21:46, No significant change was found Confirmed by Steve Gates ([id number]) on 12/06/2019 10:55:32 PM Referred By: REFERRED SELF Confirmed By:Steve Gates
[2019-12-07 00:20] LABS: BUN Creatinine Ratio 9.9 (10-20); Calcium 8.2 mg/dl (8.5-10.1); Creatinine Clr Calc Pharmacy 69.1 ml/min; Est GFR (African American) 99.2; Est GFR (Non-African American) 85.6; Potassium 3.5 mmol/L (3.5-5.1)
[2019-12-07] MEDS: SODIUM CHLORIDE 0.9% 1000ML 1,000 ML IV SCH (03:11)
[2019-12-07] MEDS: LEVOTHYROXINE SODIUM 100 MCG TABLET PO SCH (06:00)
[2019-12-07] MEDS: INSULIN ASPART 100 UNITS/ML 3 ML PEN SC SCH ×4 (08:05→20:49)
[2019-12-07] MEDS: FLUTICASONE PROPIONATE NA SPR 16 GM BTL SCH (08:08)
[2019-12-07] MEDS: ENOXAPARIN INJ 30 MG/0.3 ML SYR SQ SCH (08:08)
[2019-12-07] MEDS: ATORVASTATIN 10 MG TAB PO SCH (08:08)
[2019-12-07] MEDS: ASPIRIN 81 MG ECTAB PO SCH (08:08)
[2019-12-07] MEDS: FLUTICASONE/VILANTEROL 200/25MCG 14 PUFFS/INHALER INH SCH (08:08)
[2019-12-07] MEDS: AMLODIPINE BESYLATE 5 MG TAB PO SCH (08:09)
[2019-12-07] MEDS: MONTELUKAST SODIUM 10 MG TABLET PO SCH (08:10)
[2019-12-07] MEDS: PANTOprazole 40 MG TAB PO SCH (08:10)
[2019-12-07] MEDS: predniSONE 5 MG TAB PO SCH (08:10)
[2019-12-07] MEDS: ACETAMINOPHEN 325 MG TAB PO PRN (08:55)
[2019-12-07 09:20] LABS: BUN Creatinine Ratio 6.7 (10-20); Calcium 8.8 mg/dl (8.5-10.1); Creatinine Clr Calc Pharmacy 53.5 ml/min; Est GFR (African American) 75.9; Est GFR (Non-African American) 65.5; Potassium 3.1 mmol/L (3.5-5.1)
[2019-12-07] MEDS ORDERED: POTASSIUM CHLORIDE 20 MEQ TABCR PO STA (09:38)
[2019-12-07] MEDS: UMECLIDINIUM BROMIDE 62.5MCG/BLISTER 7 PUFFS/INHALER INH SCH (12:46)
[2019-12-07] MEDS: OXYCODONE HCL IR 5 MG TAB (IMMEDIATE RELEASE) PO PRN (14:33)
[2019-12-07 14:58] LABS: BUN Creatinine Ratio 6.4 (10-20); Calcium 8.3 mg/dl (8.5-10.1); Creatinine Clr Calc Pharmacy 50.3 ml/min; Est GFR (African American) 70.5; Est GFR (Non-African American) 60.9; Potassium 3.8 mmol/L (3.5-5.1)
--- NOTE | 2019-12-07 16:51 | Hospitalist Progress Note ---
Date of Service December 07, 2019 Assessment & Plan (1) Headache: 74-year-old male with history of a eosinophilic asthma, on chronic prednisone, allergic rhinitis, obstructive sleep apnea Diabetes, hypertension, hypothyroidism presenting with headache x3 days and hyponatremia. HEADACHE Likely secondary to migraine, exacerbated by dehydration secondary to nausea and vomiting Possibly from tadalafil? --Brain MRI: No acute process; moderate small vessel disease, ventricular atrophy --Headache improving with PRN analgesics and hydration --continue PRN oxycodone We will advise to avoid tadalafil --MRA head today to r/o aneurysm causing headache HYPONATREMIA --Likely hypovolemic secondary to vomiting --Sodium 127 --> 136 after IV NSS -- d/c IV fluids --HCTZ on hold HYPERTENSION --Initially elevated on admission Now improved --Continue usual amlodipine, doxazosin Hold HCTZ EOSINOPHILIC ASTHMA, ON CHRONIC PREDNISONE --Continue Advair, Pulmicort, montelukast ALLERGIC RHINITIS --Continue azelastine DIABETES TYPE 2 --On insulin sliding scale HYPOTHYROIDISM --Continue levothyroxine DVT prophylaxis --Lovenox 30mg subcutaneous daily Disposition --Anticipate discharge to home tomorrow medically stable Admission and Anticipated Discharge Date Admission Date: December 06, 2019 Subjective ff up for headache, hyponatremia seen resting in bedside chair, not in distress, appears more comfortable states headache is better today, less persistent, but still a 5/10 denies nausea, tolerating diet well bright light seems to make headache worse denies BOV, focal weakness or numbness denies other symptoms Review of Systems Review of Systems: All systems reviewed & are unremarkable except as noted in HPI & below Physical Exam Physical Exam: General- oriented x 3, not in distress, speaks in sentences with no effort or accessory muscle use Eyes- anicteric Neck- no JVD Lungs- clear BS BL Heart- normal rate, regular rhythm; no murmurs Abdomen- normal bowel sounds, nondistended, soft, nontender Extremities- no pretibial edema, no calf tenderness Neuro- alert, oriented x 3; no gross focal neurologic deficits Skin- warm & dry Results & Data Results & Data ([facility]) Vital Signs (Past 12 Hours) Vital Signs Temp Pulse Pulse Resp BP Pulse Ox 12/07/19 15:45 100 H 12/07/19 15:35 36.7 C 90 18 130/81 93 12/07/19 11:29 36.8 C 89 16 111/78 92 12/07/19 07:27 71 12/07/19 07:17 36.6 C 97 H 20 155/89 H 90 Laboratory Results Laboratory Results - last 24 hr 12/06/19 12/06/19 12/06/19 03:32 05:13 17:39 Sodium 134 L D 129 L 127 L Potassium 3.5 3.6 3.6 Chloride 100 93 L Carbon Dioxide 26 22 Anion Gap 8.0 11.0 BUN 9 10 11 Creatinine 0.87 0.85 0.99 Est Cr Clr Drug Dosing 69.1 60.7 Est GFR ( Amer) 99.2 87.2 Est GFR (Non-Af Amer) 85.6 75.2 BUN/Creatinine Ratio 9.9 L 11.2 Glucose 109 H 232 H POC Glucose Calcium 8.2 L 8.3 L 8.2 L Magnesium 12/06/19 12/07/19 12/07/19 20:22 07:38 08:40 Sodium 136 D Potassium 3.1 L Chloride 102 Carbon Dioxide 25 Anion Gap 9.0 BUN 7 Creatinine 1.11 Est Cr Clr Drug Dosing 53.5 Est GFR ( Amer) 75.9 Est GFR (Non-Af Amer) 65.5 BUN/Creatinine Ratio 6.7 L Glucose 234 H POC Glucose 105 H 104 H Calcium 8.8 Magnesium 12/07/19 12/07/19 12/07/19 08:40 11:29 14:08 Sodium 136 Potassium 3.8 D Chloride 105 Carbon Dioxide 23 Anion Gap 8.0 BUN 8 Creatinine 1.18 Est Cr Clr Drug Dosing 50.3 Est GFR ( Amer) 70.5 Est GFR (Non-Af Amer) 60.9 BUN/Creatinine Ratio 6.4 L Glucose 192 H POC Glucose 130 H Calcium 8.3 L Magnesium 2.1 12/07/19 16:23 Sodium Potassium Chloride Carbon Dioxide Anion Gap BUN Creatinine Est Cr Clr Drug Dosing Est GFR ( Amer) Est GFR (Non-Af Amer) BUN/Creatinine Ratio Glucose POC Glucose 115 H Calcium Magnesium (1) Headache Headache chronicity pattern: acute headache Headache type: unspecified Intractability: not intractable Qualified Code(s): R51 - Headache
--- NOTE | 2019-12-07 18:11 | Magnetic Resonance Report ---
MR ANGIOGRAPHY OF THE [place] NO CONTRAST CLINICAL HISTORY: persistent headache, r/o aneurysm COMPARISON STUDY: MRI the brain dated 12/06/2019 A 3-D [id number] MR angiographic sequence of the [place] was performed. Both the source and projection images were reviewed. There is no evidence of major intracranial branch occlusion. There is no evidence of intracranial aleida nosis. There are no lesions suspicious for aneurysm. IMPRESSION: Unremarkable MR angiography of the [place]. ACT 112: Negative or not required by law. Electronically signed by: Sadi Becerra M.D. 12/07/2019 6:09 PM
[2019-12-07] MEDS: DOXAZosin MESYLATE TAB 2 MG TAB PO SCH (20:38)
[2019-12-08] MEDS: LEVOTHYROXINE SODIUM 100 MCG TABLET PO SCH (06:02)
[2019-12-08 07:23] LABS: BUN Creatinine Ratio 10.4 (10-20); Calcium 8.8 mg/dl (8.5-10.1); Creatinine Clr Calc Pharmacy 60.6 ml/min; Est GFR (African American) 88.3; Est GFR (Non-African American) 76.2; Potassium 3.5 mmol/L (3.5-5.1)
[2019-12-08] MEDS: FLUTICASONE/VILANTEROL 200/25MCG 14 PUFFS/INHALER INH SCH (07:51)
[2019-12-08] MEDS: FLUTICASONE PROPIONATE NA SPR 16 GM BTL SCH (08:00)
[2019-12-08] MEDS: AMLODIPINE BESYLATE 5 MG TAB PO SCH (08:00)
[2019-12-08] MEDS: ENOXAPARIN INJ 30 MG/0.3 ML SYR SQ SCH (08:00)
[2019-12-08] MEDS: ASPIRIN 81 MG ECTAB PO SCH (08:00)
[2019-12-08] MEDS: ATORVASTATIN 10 MG TAB PO SCH (08:00)
[2019-12-08] MEDS: predniSONE 5 MG TAB PO SCH (08:01)
[2019-12-08] MEDS: MONTELUKAST SODIUM 10 MG TABLET PO SCH (08:01)
[2019-12-08] MEDS: PANTOprazole 40 MG TAB PO SCH (08:01)
[2019-12-08] MEDS: INSULIN ASPART 100 UNITS/ML 3 ML PEN SC SCH (08:12)
--- NOTE | 2019-12-08 09:25 | Hospitalist Progress Note ---
Date of Service December 08, 2019 Assessment & Plan (1) Headache: 74-year-old male with history of a eosinophilic asthma, on chronic prednisone, allergic rhinitis, obstructive sleep apnea Diabetes, hypertension, hypothyroidism presenting with headache x3 days and hyponatremia. HEADACHE Likely secondary to migraine, exacerbated by dehydration secondary to nausea and vomiting Possibly from tadalafil? --Brain MRI: No acute process; moderate small vessel disease, ventricular atrophy Brain MRA: Unremarkable MR angiography of the [place]. --Headache improved with PRN analgesics and hydration --continue PRN oxycodone for severe headache advised to avoid tadalafil --ff up with PCP this week HYPONATREMIA --Likely hypovolemic secondary to vomiting --Sodium 127 --> 137 after IV NSS --Hold HCTZ until ff up with PCP HYPERTENSION --Initially elevated on admission improved Hold HCTZ in light of dehydration, hyponatremia -- increase amlodipine to 7.5mg po daily ff up with PCP this week EOSINOPHILIC ASTHMA, ON CHRONIC PREDNISONE --Continue Advair, Pulmicort, montelukast ALLERGIC RHINITIS --Continue azelastine DIABETES TYPE 2 --On insulin sliding scale HYPOTHYROIDISM --Continue levothyroxine DVT prophylaxis --Lovenox 30mg subcutaneous daily given Disposition -- d/c home ff up with PCP this week Admission and Anticipated Discharge Date Admission Date: December 06, 2019 Subjective ff up for headache seen resting in bed, comfortable not in distress, in good spirits states headache has resolved no changes with vision, nausea, chest pain, focal weakness or numbness states he is ready and would like to be discharged today Review of Systems Review of Systems: All systems reviewed & are unremarkable except as noted in HPI & below Physical Exam Physical Exam: General- oriented x 3, not in distress, speaks in sentences with no effort or accessory muscle use Eyes- anicteric Neck- no JVD Lungs- clear BS BL no rales no wheezing Heart- normal rate, regular rhythm; no murmurs Abdomen- normal bowel sounds, nondistended, soft, nontender Extremities- no pretibial edema, no calf tenderness Neuro- alert, oriented x 3; no gross focal neurologic deficits Skin- warm & dry Results & Data Results & Data ([facility]) Vital Signs (Past 12 Hours) Vital Signs Temp Pulse Pulse Resp BP BP Pulse Ox 12/08/19 07:27 99 H 12/08/19 07:07 36.9 C 92 H 18 148/88 H 93 12/08/19 03:51 36.8 C 81 18 132/79 92 12/08/19 00:18 99 H 12/07/19 23:17 37.1 C 100 H 20 153/88 H 93 Laboratory Results Laboratory Results - last 24 hr 12/07/19 12/07/19 12/07/19 08:40 08:40 11:29 Sodium 136 D Potassium Chloride Carbon Dioxide Anion Gap BUN Creatinine Est Cr Clr Drug Dosing Est GFR ( Amer) Est GFR (Non-Af Amer) BUN/Creatinine Ratio Glucose POC Glucose 130 H Calcium Magnesium 2.1 12/07/19 12/07/19 12/07/19 14:08 16:23 20:10 Sodium 136 Potassium 3.8 D Chloride 105 Carbon Dioxide 23 Anion Gap 8.0 BUN 8 Creatinine 1.18 Est Cr Clr Drug Dosing 50.3 Est GFR ( Amer) 70.5 Est GFR (Non-Af Amer) 60.9 BUN/Creatinine Ratio 6.4 L Glucose 192 H POC Glucose 115 H 126 H Calcium 8.3 L Magnesium 12/08/19 12/08/19 06:19 07:24 Sodium 137 Potassium 3.5 Chloride 103 Carbon Dioxide 27 Anion Gap 8.0 BUN 10 Creatinine 0.98 Est Cr Clr Drug Dosing 60.6 Est GFR ( Amer) 88.3 Est GFR (Non-Af Amer) 76.2 BUN/Creatinine Ratio 10.4 Glucose 119 H POC Glucose 111 H Calcium 8.8 Magnesium (1) Headache Headache chronicity pattern: acute headache Headache type: unspecified Intractability: not intractable Qualified Code(s): R51 - Headache
--- NOTE | 2019-12-08 09:51 | Discharge Summary ---
Date of Service December 08, 2019 Admission HPI Per Admitting Provider History obtained from patient and records. 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 Last confinement June 2019 for atypical pneumonia/bronchitis. 2 days history of achy headache symptoms between the eyes with some nausea and emesis. No chest pain, no S OB. No fever, no chills. Denies abdominal pain. Chronic loose stools. Denies flulike symptoms. No prior episodes. No new medications except for tadalafil taken for erectile dysfunction 2 weeks ago which patient stopped because of headache symptoms. Patient seen at the ER 2 days ago. Serum sodium was noted to be 127. Admission recommended by ER provider but patient refused. Patient returned to the ER for worsening symptoms. 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 Admission Exam Per Admitting Provider GENERAL: slightly uncomfortable and anxious, obese, slightly hard of hearing, no respiratory distress SKIN: Normal color, warm HEENT: [place] palpebral conjunctivae, no ptosis, dry buccal mucosa NECK : Supple, short neck, no tenderness CHEST : CTA, no tenderness HEART : Tachycardic, no obvious murmurs ABDOMEN: Some distention, nontender EXTREMITIES : No LE swelling/tenderness, no other conspicuous deformities noted NEUROLOGIC : Coherent, no facial asymmetry, no other gross focality Principal Diagnosis HEADACHE, POSSIBLE MIGRAINE Discharge Exam General- oriented x 3, not in distress, speaks in sentences with no effort or accessory muscle use Eyes- anicteric Neck- no JVD Lungs- clear BS BL no rales no wheezing Heart- normal rate, regular rhythm; no murmurs Abdomen- normal bowel sounds, nondistended, soft, nontender Extremities- no pretibial edema, no calf tenderness Neuro- alert, oriented x 3; no gross focal neurologic deficits Skin- warm & dry Discharge Data Allergies Allergy/AdvReac Type Severity Reaction Status Date / Time cat dander Allergy Unknown watery eyes Verified 12/05/19 22:11 No Known Drug Allergies Allergy Unknown . Verified 06/29/19 12:51 SUJATHA Inhibitors AdvReac Cough Verified 12/05/19 22:11 Consultations 12/05/19 23:28 ED Decision to Admit Stat Ordered Studies 12/05/19 23:57 CT head/brain wo con Urgent 12/06/19 01:01 MR brain wo/w con Routine FINDINGS: There are no foci of restricted diffusion to suggest acute infarct. No acute intracranial hemorrhage, midline shift or mass effect is present. Mild ventricular dilatation is due to atrophy. White matter T2 hyperintense foci suggest moderate small vessel disease. The basilar cisterns are patent. There are no extra-axial collections. No intracranial mass or pathologic enhancement is identified. Small air-fluid level within the right maxillary sinus is noted. Calvarial signal is unremarkable. There is no mastoid fluid. Flow-voids for the major intracranial vessels are present. IMPRESSION: 1. No acute intracranial findings. 2. No intracranial mass or pathologic enhancement. 3. Moderate atrophy and small vessel disease. 4. Small air-fluid level within the right maxillary sinus. 12/07/19 16:27 MR angio head wo con Routine There is no evidence of major intracranial branch occlusion. There is no evidence of intracranial stenosis. There are no lesions suspicious for aneurysm. IMPRESSION: Unremarkable MR angiography of the [place]. Hospital Course (1) Headache: 74-year-old male with history of a eosinophilic asthma, on chronic prednisone, allergic rhinitis, obstructive sleep apnea Diabetes, hypertension, hypothyroidism presenting with headache x3 days and hyponatremia. HEADACHE Likely secondary to migraine, exacerbated by dehydration secondary to nausea and vomiting Possibly from tadalafil? --Brain MRI: No acute process; moderate small vessel disease, ventricular atrophy Brain MRA: Unremarkable MR angiography of the [place]. --Headache improved with PRN analgesics and hydration --continue PRN oxycodone for severe headache advised to avoid tadalafil --ff up with PCP this week HYPONATREMIA --Likely hypovolemic secondary to vomiting --Sodium 127 --> 137 after IV NSS --Hold HCTZ until ff up with PCP HYPERTENSION --Initially elevated on admission improved Hold HCTZ in light of dehydration, hyponatremia -- increase amlodipine to 7.5mg po daily ff up with PCP this week EOSINOPHILIC ASTHMA, ON CHRONIC PREDNISONE --Continue Advair, Pulmicort, montelukast ALLERGIC RHINITIS --Continue azelastine DIABETES TYPE 2 --On insulin sliding scale HYPOTHYROIDISM --Continue levothyroxine DVT prophylaxis --Lovenox 30mg subcutaneous daily given Disposition -- d/c home ff up with PCP this week Total Time Total Time Spent Total Time Spent (In Minutes): 45 MINS Discharge Plan Discharge Items Patient Disposition: Home - Self-Care Reason For Visit: HYPONATREMIA Discharge Diagnosis: HEADACHE, POSSIBLE MIGRAINE; LOW SODIUM LEVEL FROM DEHYDRATION Activity: Resume your previous activity Lifting: Wait until after follow-up appointment Exercise/Sports: Wait until after follow-up appointment Driving/Machine Use: NO DRIVING UNTIL ALLOWED AND RE-EVALUATED BY PRIMARY CARE PHYSICIAN Non-emergency contact: Primary Care Provider Call non-emergency contact if: you have any medication questions, your symptoms worsen, your pain is not controlled, your pain is worsening, your pain is unusual for you, your pain is concerning for you and you have a fever Follow-up/Referrals: Enrico Mccauley MD [Outside Practitioners] - 12/14/19 10:40 am Diet: Carb Consistent or DM2 and Heart Healthy Addtl Attending Provider Instructions: MEDICATIONS CHANGES: OXYCODONE NEEDED FOR SEVERE HEADACHE. DO NOT TAKE TADALAFIL (CIALIS). HOLD HCTZ FOR NOW. INCREASE AMLODIPINE FROM 5MG TO 7.5MG ONCE DAILY. BLOOD PRESSURE RE-CHECK ON FOLLOW UP WITH YOUR PRIMARY CARE PHYSICIAN. DRINK PLENTY OF FLUIDS. YOU CAN TAKE TYLENOL FOR MILD HEADACHE, AND OXYCODONE FOR SEVERE HEADACHE. DO NOT TAKE MORE THAN 3,000MG OF TYLENOL WITHIN [address] WHILE TAKING OXYCODONE. PLEASE REVIEW YOUR NEW MEDICATION LIST AND FOLLOW INSTRUCTIONS CAREFULLY. FOLLOW UP WITH PRIMARY CARE PHYSICIAN NEXT WEEK OUTLINED ABOVE. CALL PRIMARY CARE PHYSICIAN OR RETURN TO THE ER IF WITH WORSENING OF SYMPTOMS. Pending Studies at Discharge: No Stand-Alone Forms: [facility] [employer], Smoking Cessation Medications and DC Order Prescriptions: New oxycodone 5 mg Tablet 5 mg PO Q6H PRN (Reason: pain) Qty: 10 RF: 0 Continued Breo Ellipta 200-25 mcg/dose blister with device 1 inh INHALATION DAILY Qty: 28 RF: 0 Xolair 150 mg/mL syringe 300 mg SUBCUT Q4WK Qty: 2 RF: 11 albuterol sulfate 90 mcg/actuation HFA aerosol inhaler 2 puff INHALATION Q4H PRN (Reason: Shortness Of Breath) Qty: 6.7 RF: 0 aspirin [Aspirin Low Dose] 81 mg tablet,delayed release (DR/EC) 81 mg PO DAILY Qty: 1 RF: 0 atorvastatin 10 mg tablet 10 mg PO DAILY Qty: 90 RF: 0 QNASL 40 mcg/actuation HFA aerosol inhaler 2 inh intranasal DAILY Qty: 6.8 RF: 0 epinephrine 0.3 mg/0.3 mL auto-injector 0.3 mg IM Q15M Qty: 1 RF: 0 levothyroxine 100 mcg tablet 100 mcg PO DAILY 90 Days Qty: 90 RF: 0 metformin 1,000 mg tablet 1,000 mg PO BID Qty: 90 RF: 0 mometasone 50 mcg/actuation spray,non-aerosol 2 spray intranasal DAILY Qty: 17 RF: 0 montelukast 10 mg tablet 10 mg PO QAM Qty: 90 RF: 0 omeprazole 20 mg capsule,delayed release(DR/EC) 20 mg PO DAILY Qty: 1 RF: 0 Spiriva with HandiHaler 18 mcg capsule, w/inhalation device 1 cap Inhalation DAILY AFTERNOON Qty: 1 RF: 0 budesonide [Pulmicort] 1 mg/2 mL Suspension For Nebulization 1 mg inhalation DAILY RF: 0 azelastine 0.15 % (205.5 mcg) [place],Non-Aerosol 1 spray INTRANASAL BID RF: 0 cetirizine 10 mg tablet 10 mg PO DAILY PRN (Reason: Allergy Symptoms) RF: 0 doxazosin 2 mg tablet 2 mg PO HS RF: 0 prednisone 5 mg tablet 5 mg PO DAILY RF: 0 ipratropium-albuterol 0.5 mg-3 mg(2.5 mg base)/3 mL solution for nebulization 3 ml INHALATION QID PRN (Reason: Shortness Of Breath) RF: 0 Changed amlodipine 5 mg tablet 7.5 mg PO DAILY Qty: 90 RF: 0 Discontinued tadalafil [Cialis] 20 mg tablet 20 mg PO DAILY PRN (Reason: OTHER) Qty: 90 RF: 0 hydrochlorothiazide 12.5 mg Capsule 12.5 mg PO DAILY RF: 0 tadalafil [Cialis] 20 mg Tablet 20 mg PO DAILY PRN (Reason: Erectile Dysfunction) RF: 0 Discharge Orders: Discharge Order (Routine); Ordered 12/08/19 Ordered By: Carlton Tobar Admission Data Admit Date/Time: 12/06/19 00:26 Attending Provider: Carlton Tobar Admit Provider: Luis Fernando Pagan Primary Care Provider: PCP,NO Other Providers: Luis Fernando Pagan Other Interventions: Discharge Summary Assessment (RN) Last Done: 12/08/19 10:04 DC Date/Time DO NOT enter until pt leaves facility: 12/08/19 10:32
--- NOTE | 2019-12-08 21:57 | Electrocardiogram Report ---
Test Reason : Blood Pressure : / mmHG Vent. Rate : 092 BPM Atrial Rate : 092 BPM P-R Int : 162 ms QRS Dur : 074 ms QT Int : 356 ms P-R-T Axes : 046 -01 039 degrees QTc Int : 440 ms Normal sinus rhythm Cannot rule out Inferior infarct , age undetermined Abnormal ECG When compared with ECG of 05-DEC-2019 21:56, No significant change Confirmed by Steve Gates ([id number]) on 12/08/2019 9:56:42 PM Referred By: REFERRED SELF Confirmed By:Steve Gates
== END 2019-12-08 10:32 | disposition home or self-care (01) | DRG 641 ==
LOC: ED 21:12 → 2N 12-06 00:26

== ENCOUNTER 2022-07-02 07:06 | Inpatient (IN) ==
[2022-07-02] MEDS ORDERED: ALBUTEROL 0.083% NEBU SOLN 3 ML VIAL NEB STA (07:35)
--- NOTE | 2022-07-02 07:35 | Emergency Department Note ---
Impression & Plan Respiratory failure, Hypoxia, Leukocytosis ED Provider Note NAME: HAL WILCOX AGE: 76 SEX: M : 1945 ARRIVES VIA: Ambulance INFORMANT: Patient ED PROVIDER(S): Elia Aguilera DO CHIEF COMPLAINT: shortness of breath HPI: Patient is a 76-year-old male with a past medical history of asthma, dyslipidemia, diabetes, obstructive sleep apnea on CPAP, hyponatremia who presents to the ER for cough which started yesterday in combination with shortness of breath. Denies any runny nose or sore throat. Does admit to a headache. No belly pain, nausea, vomiting, or diarrhea. No dysuria, urgency, or frequency. No other exacerbating or remitting factors. Patient notes that he feels significantly short of breath but feels much better on oxygen. He has been trying to get oxygen but cannot. He notes he has gotten this multiple times before but does not know what is causing his symptoms. ROS: See above HPI for pertinent positives & negatives. A total of 10 systems reviewed and were otherwise negative. PAST MEDICAL HISTORY:See Below PAST SURGICAL HISTORY:See Below FAMILY HISTORY:See Below SOCIAL HISTORY:See Below HOME MEDICATIONS:See Below ALLERGIES:See Below VITALS:See Below PHYSICAL EXAMINATION: GENERAL: Sitting up in bed, alert, well appearing, well nourished, no distress, non-toxic EYE EXAM: normal conjunctiva. OROPHARYNX: no exudate, no erythema, lips, buccal mucosa, and tongue normal and mucous membranes are moist NECK: supple, no nuchal rigidity, no adenopathy, non-tender LUNGS: Clear to auscultation. Normal chest wall mechanics HEART: no murmurs, S1 normal and S2 normal ABDOMEN: abdomen soft, non-tender, normo-active bowel sounds, no masses, no rebound or guarding. UPPER EXTREMITIES: upper extremities are grossly normal. LOWER EXTREMITIES: No pitting edema. NEURO EXAM: Normal sensorium, cranial nerves II-XII grossly intact, normal speech, no gross weakness of arms, no gross weakness of legs. MEDICAL DECISION MAKING: Patient is a 76-year-old male who presents the ER for upper respiratory symptoms. IV was established blood work was obtained. Labs show a mild leukocytosis of 17,000. No significant anemia. BMP with mild hypokalemia at 3.4. LFTs bilirubin was unremarkable. Troponin was slightly elevated at 35. Lipase was normal. COVID flu and RSV were negative. Chest x-ray with low volumes. Patient was given Rocephin and azithromycin. Patient was updated at bedside. Was given a neb treatment as well as steroids. Remained on 4 L nasal cannula with pulse ox in the low 90s. Patient was admitted for further work-up to the hospitalist. Triage Nursing notes reviewed. Limited review of prior medical records performed Vital Signs: reviewed and remarkable for tachy and febrile Differential diagnosis: Differential diagnoses includes but is not limited to pneumonia, bronchitis, COPD/Asthma exacerbation, pneumothorax, pulmonary embolism, congestive heart failure, acute coronary syndrome ER treatment provided: See below Diagnostics interpreted by me: ECG: Sinus tachycardia rate 125 Normal axis No PVCs QTC 450 Cardiac Monitoring: An order was placed for continuous cardiac monitoring. The monitor shows a rate of 122 with sinus rhythm. Laboratory studies: As stated above and show below. Imaging studies: Chest x-ray as described above Consultation(s): Discussed with [facility] for further evaluation Procedures: none Critical Care: I have personally spent 32 minutes of critical care time in the direct management of this patient. This includes bedside care, interpretation of diagnostic studies, and testing, discussion with consultants, patient, and family members, and other required patient management activities. This 32 minutes is in excess of all separately billable procedures. Past Med/Surg History Medical History Asthma Asthma exacerbation Chronic back pain Chronic headaches Chronic steroid use COPD Diabetes mellitus, type 2 NIDDM GERD (gastroesophageal reflux disease) H. pylori infection hx Hyperlipidemia Hypertension Hypothyroidism Osteoarthritis Pneumonia annually. last 11/2019. 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 Verified 06/27/20 06:16 SUJATHA Inhibitors AdvReac Mild Cough Verified 06/27/20 06:16 Home Meds Home Medications Medication Instructions Recorded Confirmed azelastine 205.5 mcg (0.15 %) 1 spray intranasal BID 06/29/19 07/02/22 nasal spray budesonide 1 mg/2 mL suspension 1 mg inhalation QAM 06/29/19 07/02/22 for nebulization (Pulmicort) cetirizine 10 mg tablet 10 mg PO DAILY PRN Allergy Symptoms 06/29/19 07/02/22 doxazosin 2 mg tablet 2 mg PO HS 06/29/19 07/02/22 ipratropium 0.5 mg-albuterol 3 mg 3 ml inhalation QID PRN Shortness 12/05/19 07/02/22 (2.5 mg base)/3 mL nebulization Of Breath soln amlodipine 5 mg tablet 7.5 mg PO QAM 05/27/20 07/02/22 aspirin 81 mg tablet,delayed 81 mg PO QAM 05/27/20 07/02/22 release (Demarco Low Dose Aspirin) atorvastatin 10 mg tablet 20 mg PO HS 05/27/20 07/02/22 fluticasone furoate 200 1 inh inhalation QAM 05/27/20 07/02/22 mcg-vilanterol 25 mcg/dose inhalation powder (Breo Ellipta) levothyroxine 100 mcg tablet 100 mcg PO QAM 05/27/20 07/02/22 montelukast 10 mg tablet 10 mg PO QPM 05/27/20 07/02/22 omeprazole 20 mg capsule,delayed 20 mg PO QAM 05/27/20 07/02/22 release sumatriptan succinate 25 mg tablet 25 mg PO UD PRN Headache 05/27/20 07/02/22 (Imitrex) tiotropium bromide 18 mcg capsule 1 cap inhalation QPM 05/27/20 07/02/22 with inhalation device (Spiriva with HandiHaler) cyanocobalamin (vitamin B-12) 1,000 mcg PO DAILY 07/02/22 07/02/22 1,000 mcg tablet (Vitamin B-12) fluticasone furoate 100 1 inh inhalation DAILY 07/02/22 07/02/22 mcg/actuation blister powder for inhalation (Arnuity Ellipta) glipizide 5 mg tablet 5 mg PO BID 07/02/22 07/02/22 losartan 25 mg tablet 25 mg PO DAILY 07/02/22 07/02/22 Previous Rx's Medication Instructions Recorded albuterol sulfate 90 mcg/actuation 2 puff inhalation Q4H PRN 02/25/19 aerosol inhaler Shortness Of Breath #6.7 grams Results & Data (ED) Vital Signs Vital Signs - 24 hr 07/02/22 07:28 07/02/22 07:28 07/02/22 07:28 Temperature 37.8 C H Temperature Source Oral Pulse Rate 129 H Respiratory Rate 20 Respiratory Effort / Characteristics Non-Labored Spontaneous Non-Labored Spontaneous Respiratory Depth Normal Normal Respiratory Pattern Regular Regular Blood Pressure 128/79 Blood Pressure Mean 95 Pulse Oximetry 92 94 Oxygen Delivery Method Nasal Cannula Nasal Cannula Nasal Cannula Oxygen Flow Rate 4 4 4 Sepsis Recent Fever Within 48 Hours Yes Sepsis New/Unexplained Change in Mental Status No Sepsis Action Taken by Nursing No Action Required 07/02/22 08:30 07/02/22 08:30 Temperature Temperature Source Pulse Rate 119 H Respiratory Rate 26 H Respiratory Effort / Characteristics Respiratory Depth Respiratory Pattern Blood Pressure 135/88 Blood Pressure Mean 103 Pulse Oximetry Oxygen Delivery Method Oxygen Flow Rate Sepsis Recent Fever Within 48 Hours Sepsis New/Unexplained Change in Mental Status Sepsis Action Taken by Nursing Laboratory Data Result diagrams: 07/02/22 06:40 07/02/22 06:40 Lab Results 07/02/22 07/02/22 07/02/22 Range/Units 06:40 06:40 06:40 WBC 17.67 H (4.8-10.8) K/ul RBC 5.32 (4.63-6.08) M/uL Hgb 15.6 (14.0-18.0) g/dl Hct 44.9 (40.1-51.0) % MCV 84.4 (80.0-100.0) fL MCH 29.3 (25.0-34.0) pg MCHC 34.7 (32.0-36.0) g/dL RDW Std Deviation 44.8 (36.4-46.3) fL RDW Coeff of Zainab 14.6 H (11.5-14.5) % Plt Count 235 (130-400) K/uL MPV 10.0 (9.4-12.4) fL Immature Gran % (Auto) 0.5 % Neut % (Auto) 84.9 % Lymph % (Auto) 8.5 % Gillespie % (Auto) 5.8 % Eos % (Auto) 0.1 % Baso % (Auto) 0.2 % Neut # (Auto) 15.01 H (1.4-6.5) K/uL Lymph # (Auto) 1.50 (1.2-3.4) K/uL Gillespie # (Auto) 1.02 H (0.24-0.82) K/uL Eos # (Auto) 0.01 (0-0.50) K/uL Baso # (Auto) 0.04 (0-0.2) K/uL Immature Gran # (Auto) 0.09 H (0.00-0.02) K/uL Sodium 140 (136-145) mmol/L Potassium 3.4 L (3.5-5.1) mmol/L Chloride 104 (98-107) mmol/L Carbon Dioxide 25 (21-32) mmol/L Anion Gap 11 (3-11) BUN 20 (6-23) mg/dl Creatinine 0.86 (0.6-1.4) mg/dl Est Cr Clr Drug Dosing 68.9 ml/min Est GFR ( Amer) 98.3 ml/min Est GFR (Non-Af Amer) 84.8 ml/min BUN/Creatinine Ratio 23.3 H (10-20) Glucose 190 H (70-99(Fasting)) mg/dl Lactate (0.4-2.0) mmol/L Calcium 9.3 (8.5-10.1) mg/dl Magnesium 1.7 (1.7-2.4) mg/dl Total Bilirubin 0.8 (0.2-1.0) mg/dl AST 14 (13-39) U/L ALT 19 (7-52) U/L Alkaline Phosphatase 42 (34-104) U/L Troponin I High Sens 34.9 H (0-20) pg/ml Total Protein 7.3 (6.0-8.3) gm/dl Albumin 4.3 (3.4-5.0) gm/dl Globulin 3.0 (2.5-4.0) gm/dl Albumin/Globulin Ratio 1.4 (0.9-2) Lipase 10 L (11-82) U/L SARS-CoV-2 (PCR) (Negative) Influenza Type A (PCR) (Neg) Influenza Type B (PCR) (Neg) RSV (RT-PCR) (Neg) 07/02/22 07/02/22 Range/Units 08:05 08:36 WBC (4.8-10.8) K/ul RBC (4.63-6.08) M/uL Hgb (14.0-18.0) g/dl Hct (40.1-51.0) % MCV (80.0-100.0) fL MCH (25.0-34.0) pg MCHC (32.0-36.0) g/dL RDW Std Deviation (36.4-46.3) fL RDW Coeff of Zainab (11.5-14.5) % Plt Count (130-400) K/uL MPV (9.4-12.4) fL Immature Gran % (Auto) % Neut % (Auto) % Lymph % (Auto) % Gillespie % (Auto) % Eos % (Auto) % Baso % (Auto) % Neut # (Auto) (1.4-6.5) K/uL Lymph # (Auto) (1.2-3.4) K/uL Gillespie # (Auto) (0.24-0.82) K/uL Eos # (Auto) (0-0.50) K/uL Baso # (Auto) (0-0.2) K/uL Immature Gran # (Auto) (0.00-0.02) K/uL Sodium (136-145) mmol/L Potassium (3.5-5.1) mmol/L Chloride (98-107) mmol/L Carbon Dioxide (21-32) mmol/L Anion Gap (3-11) BUN (6-23) mg/dl Creatinine (0.6-1.4) mg/dl Est Cr Clr Drug Dosing ml/min Est GFR ( Amer) ml/min Est GFR (Non-Af Amer) ml/min BUN/Creatinine Ratio (10-20) Glucose (70-99(Fasting)) mg/dl Lactate 1.2 (0.4-2.0) mmol/L Calcium (8.5-10.1) mg/dl Magnesium (1.7-2.4) mg/dl Total Bilirubin (0.2-1.0) mg/dl AST (13-39) U/L ALT (7-52) U/L Alkaline Phosphatase (34-104) U/L Troponin I High Sens (0-20) pg/ml Total Protein (6.0-8.3) gm/dl Albumin (3.4-5.0) gm/dl Globulin (2.5-4.0) gm/dl Albumin/Globulin Ratio (0.9-2) Lipase (11-82) U/L SARS-CoV-2 (PCR) NEGATIVE (Negative) Influenza Type A (PCR) Negative (Neg) Influenza Type B (PCR) Negative (Neg) RSV (RT-PCR) Negative (Neg) Administered Medications Albuterol (Albut/Ipratrop 3mg/0.5mg Neb 3 Ml Vial) 3 ml NEB QIDR [facility]; Protocol Stop: 08/01/22 11:31 Last Admin: 07/02/22 12:14 Dose: 3 ml Documented By: FAVIAN Discontinued Medications Acetaminophen (Acetaminophen 325 Mg Tab) 650 mg PO NOW STA Stop: 07/02/22 07:42 Last Admin: 07/02/22 08:03 Dose: 650 mg Documented By: FAVIAN Albuterol (Albuterol 0.083% Nebu Soln 3 Ml Vial) 7.5 mg NEB NOW STA; Protocol Stop: 07/02/22 07:36 Last Admin: 07/02/22 08:02 Dose: 7.5 mg Documented By: FAVIAN Azithromycin (Azithromycin 250 Mg Tab) 500 mg PO NOW ONE Stop: 07/02/22 08:15 Last Admin: 07/02/22 08:49 Dose: 500 mg Documented By: FAVIAN Ceftriaxone Sodium (Rocephin) 2,000 mg in 70 mls @ 140 mls/hr IV NOW STA Stop: 07/02/22 08:43 Last Infusion: 07/02/22 09:23 Dose: 0 mls/hr Documented By: Admin: 07/02/22 08:49 Dose: 140 mls/hr Documented By: FAVIAN Methylprednisolone (Methylprednisolone 40 Mg/Ml Vial) 40 mg IV NOW STA Stop: 07/02/22 07:36 Last Admin: 07/02/22 08:03 Dose: 40 mg Documented By: FAVIAN Imaging Data Radiologist's Impression: Chest X-Ray 07/02/22 07:30 XR chest 1V portable CLINICAL HISTORY: Atypical chest pain. COMPARISON STUDY: Chest radiograph December 05, 2019. FINDINGS: Lung volumes are diminished. This is unchanged. Bibasilar opacities favor atelectasis. No definite consolidation is noted. Cardiomegaly is unchanged. There is no evidence for pulmonary edema. No pneumothorax or pleural effusion. Elevation of the right hemidiaphragm is unchanged. IMPRESSION: Low lung volumes with bibasilar opacities that favor atelectasis. ACT 112: Negative or not required by law. Electronically signed by: Osmany Wilson M.D. 07/02/2022 7:57 AM Discharge Plan Visit Data Chief Complaint: Shortness of Breath/Dyspnea Stated Complaint: WEAKNESS, FALL, ED Provider: Elia Aguilera Discharge Problem: Respiratory failure, Hypoxia, Leukocytosis Patient Disposition: Admitted As Inpatient Discharge Instructions Interventions: ED Discharge Assessment Last Done: 07/02/22 10:31
[2022-07-02] MEDS ORDERED: ACETAMINOPHEN 325 MG TAB PO STA (07:41)
[2022-07-02 07:51] LABS: Basophils # (auto) 0.04 K/uL (0-0.2); Basophils % (auto) 0.2 %; Eosinophils # (auto) 0.01 K/uL (0-0.50); Eosinophils % (auto) 0.1 %; Hematocrit (blood only) 44.9 % (40.1-51.0); Hemoglobin 15.6 g/dl (14.0-18.0); Immature Granulocytes # (auto) 0.09 K/uL (0.00-0.02); Immature Granulocytes % (auto) 0.5 %; Lymphocytes % (auto) 8.5 %; Mean Corpuscular Hemoglobin 29.3 pg (25.0-34.0); Mean Corpuscular Hgb Conc 34.7 g/dL (32.0-36.0); Mean Corpuscular Volume 84.4 fL (80.0-100.0); Monocytes # (auto) 1.02 K/uL (0.24-0.82); Monocytes % (auto) 5.8 %; Neutrophils # (auto) 15.01 K/uL (1.4-6.5); Neutrophils % (auto) 84.9 %; Platelet Count 235 K/uL (130-400); RDW Coefficient of Variation 14.6 % (11.5-14.5); RDW Standard Deviation 44.8 fL (36.4-46.3); Red Blood Count 5.32 M/uL (4.63-6.08); White Blood Count 17.67 K/ul (4.8-10.8)
--- NOTE | 2022-07-02 07:59 | XRay Report ---
XR chest 1V portable CLINICAL HISTORY: Atypical chest pain. COMPARISON STUDY: Chest radiograph December 05, 2019. FINDINGS: Lung volumes are diminished. This is unchanged. Bibasilar opacities favor atelectasis. No d efinite consolidation is noted. Cardiomegaly is unchanged. There is no evidence for pulmonary edema. No pneumothorax or pleural effusion. Elevation of the right hemidiaphragm is unchanged. IMPRESSION: Low lung volumes with bibasilar opacities that favor atelectasis. ACT 112: Negative or not required by law. Electronically signed by: Osmany Wilson M.D. 07/02/2022 7:57 AM
[2022-07-02 08:02] LABS: Albumin Globulin Ratio 1.4 (0.9-2); Albumin Level 4.3 gm/dl (3.4-5.0); BUN Creatinine Ratio 23.3 (10-20); Bilirubin,Total 0.8 mg/dl (0.2-1.0); Calcium 9.3 mg/dl (8.5-10.1); Creatinine Clr Calc Pharmacy 68.9 ml/min; Est GFR (African American) 98.3 ml/min; Est GFR (Non-African American) 84.8 ml/min; Potassium 3.4 mmol/L (3.5-5.1); Total Protein 7.3 gm/dl (6.0-8.3)
[2022-07-02 08:08] LABS: Troponin I High Sensitivity 34.9 pg/ml (0-20)
[2022-07-02] MEDS ORDERED: cefTRIAXone SODIUM 2,000 MG/70 ML BAG IV STA (08:14)
[2022-07-02] MEDS ORDERED: AZITHROMYCIN 250 MG TAB PO ONE (08:14)
--- NOTE | 2022-07-02 08:40 | History & Physical Report ---
Date of Service July 02, 2022 Assessment & Plan (1) Asthma exacerbation: (2) Upper respiratory infection: (3) Sleep apnea: (4) HTN (hypertension): (5) Dyslipidemia: (6) DM type 2 (diabetes mellitus, type 2): (7) Gastroesophageal reflux disease: (8) Hypothyroidism: (9) BPH (benign prostatic hyperplasia): Plan SEE HPI at bottom of chart for further details: 76 M asthma exacerbation + URI + restrictive lung disease on numerous maintenance medications. CXR suggests atelectasis. Takes Spiriva, Arniuty Ellipta, BREO, Singular, and PRN Duoneb and Q mo. Omalizumab for allergic rhinitis. Complete bio fire pending, however appears negative for COVID and influenza, lactate 1.2 , procalcitonin pending. Sputum culture pending. Suspect patient has viral upper respiratory infection with asthma exacerbation. Will discuss with on-call pulmonary for further recc. Asthma exacerbation: Restrictive lung disease: Upper respiratory infection: Sleep Apnea: Asthma triggers: dust mites, cats, pollen 5th reported asthma exacerbation this year; on chronic steroids Prednisone 5mg PO daily Follows with Dr. Andujar per [facility] (Dr. Paul) recc for eval of neuromuscular wall weakness as noted on PFT's; possible referral to genetics and EMG pending [facility] Anti-VGCC antibody: negative Next Pulm appt 07/12 Last PFT's 02/2022: FEV1 79% Daily asthma regimen: Spiriva, Arniuty Ellipta, BREO, Singular, and PRN Duoneb Does not use CPAP at night Reports that asthma flares also triggered by respiratory illness; suspect URI, likely viral CXR: Low lung volumes with bibasilar opacities that favor atelectasis. Biofire pending Solumedrol 40 mg IV Q8 Nebs PRN Lactate: 1.2 Procalcitonin; cover empirically with Rocephin + Azithro Sputum culture pending; adjust abx coverage or DC as needed ISB + flutter value Allergic Rhinitis: Q month SQ injections of Omalizumab Takes Cetirizine Follows with [facility] clin tech Q6 months Hypertension: Takes Amlodipine; continue Recent Biomarkers ordered [facility] CK 57, BNP 57 Dyslipidemia: Takes Atorvastatin; continue Last Lipid Panel: TG 274, LDL 75, HDL 48 Diabetes mellitus type 2: Takes Glipizide at home; place on SSI while inpt Check A1C Hypothyroidism: TSH 0.97 05/2022 Takes Levothyroxine; continue Chronic headaches: Takes Imitrex as needed; continue GERD: Takes omeprazole; continue Disposition: PCP: Dr. Mccauley CODE STATUS: Full code VTE prophylaxis: Lovenox subcu I personally was able to review all current laboratory work and diagnostic images obtained in the ED. Additionally, I was able to review the patients past medication reconciliation and history with direct visualization in the patients chart. This patient was seen and discussed with Dr. Berkowitz for collaboration. Please see his addendum for further details. History of Present Illness Chief Complaint: shortness of breath Primary Care Provider: Enrico Mccauley MD Mr. Baker is a 76-year-old male that presented to [facility] ED with shortness of breath, cough and sore throat that has been bothering him over the last 2 days. He stated that he walks with a cane and was sitting on the edge of his sofa and felt too weak to stand and he fell resulting in a skin tear on his left arm. This patient has a complex history of restrictive lung disease and moderate to severe asthma and he has experienced approximately 4 asthma exacerbations this year. He takes chronic steroids and follows with Dr. Paul outpatient pulm and his next appointment is 07/12. In review of EMR it appears that his last PFT was 02/2022 with a FEV1 of 79%. Additionally he was referred to Dr. Daniels with neurology for evaluation of neuromuscular wall weakness and possible genetic work-up with EMG. Anti-V GCC antibody was negative. He is on a complex regimen for his asthma which includes Spiriva, Arnuity Ellipta, Breo, Singulair, and as needed duo nebulizers. Chest x-ray showed low lung volumes with bibasilar opacities indicating atelectasis; will repeat in a.m. due to poor imaging. Patient reports triggers to his asthma to be pet dander, pollen, dust mites and upper respiratory illness . Patient has been vaccinated against influenza and COVID, no boosters. Additional past medical history includes sleep apnea (not compliant with CPAP), HTN, allergic rhinitis (follows with Allergy Q6 months and is on Omalizumab), HLD, NIDDM2, hypothyroidism, and GERD. When I examined the patient he was sitting upright in his bed in tripod position tachycardic using diaphragmatic muscles for breathing. He had just received a nebulizer treatment and steroid by ED staff and by the end of our conversation he reported feeling improved and his heart rate did go down to the low 110's. Patient troponin in ED 34.9, likely related to increased ischemic demand on the heart; do not suspect ACS but will trend troponin x1. Complete bio fire pending, however appears negative for COVID and influenza, lactate 1.2 , procalcitonin pending. Sputum culture pending. Suspect patient has viral upper respiratory infection with asthma exacerbation. Will discuss with on-call pulmonary for further recommendations. Patient will be admitted for further evaluation and management. Please see A/P for further details. Allergies Allergy/AdvReac Type Severity Reaction Status Date / Time cat dander Allergy Unknown watery eyes Verified 06/27/20 06:16 No Known Drug Allergies Allergy Unknown . Verified 06/27/20 06:16 SUJATHA Inhibitors AdvReac Mild Cough Verified 06/27/20 06:16 Home Medications Medication Instructions Recorded Confirmed Type albuterol sulfate 90 mcg/actuation 2 puff inhalation Q4H PRN 02/25/19 07/02/22 Rx aerosol inhaler Shortness Of Breath #6.7 grams azelastine 205.5 mcg (0.15 %) 1 spray intranasal BID 06/29/19 07/02/22 History nasal spray budesonide 1 mg/2 mL suspension 1 mg inhalation QAM 06/29/19 07/02/22 History for nebulization (Pulmicort) cetirizine 10 mg tablet 10 mg PO DAILY PRN Allergy Symptoms 06/29/19 07/02/22 History doxazosin 2 mg tablet 2 mg PO HS 06/29/19 07/02/22 History ipratropium 0.5 mg-albuterol 3 mg 3 ml inhalation QID PRN Shortness 12/05/19 07/02/22 History (2.5 mg base)/3 mL nebulization Of Breath soln amlodipine 5 mg tablet 7.5 mg PO QAM 05/27/20 07/02/22 History aspirin 81 mg tablet,delayed 81 mg PO QAM 05/27/20 07/02/22 History release (Demarco Low Dose Aspirin) atorvastatin 10 mg tablet 20 mg PO HS 05/27/20 07/02/22 History fluticasone furoate 200 1 inh inhalation QAM 05/27/20 07/02/22 History mcg-vilanterol 25 mcg/dose inhalation powder (Breo Ellipta) levothyroxine 100 mcg tablet 100 mcg PO QAM 05/27/20 07/02/22 History montelukast 10 mg tablet 10 mg PO QPM 05/27/20 07/02/22 History omeprazole 20 mg capsule,delayed 20 mg PO QAM 05/27/20 07/02/22 History release sumatriptan succinate 25 mg tablet 25 mg PO UD PRN Headache 05/27/20 07/02/22 History (Imitrex) tiotropium bromide 18 mcg capsule 1 cap inhalation QPM 05/27/20 07/02/22 History with inhalation device (Spiriva with HandiHaler) cyanocobalamin (vitamin B-12) 1,000 mcg PO DAILY 07/02/22 07/02/22 History 1,000 mcg tablet (Vitamin B-12) fluticasone furoate 100 1 inh inhalation DAILY 07/02/22 07/02/22 History mcg/actuation blister powder for inhalation (Arnuity Ellipta) glipizide 5 mg tablet 5 mg PO BID 07/02/22 07/02/22 History losartan 25 mg tablet 25 mg PO DAILY 07/02/22 07/02/22 History Past Med/Surg History Medical History Asthma Asthma exacerbation Chronic back pain Chronic headaches Chronic steroid use COPD Diabetes mellitus, type 2 NIDDM GERD (gastroesophageal reflux disease) H. pylori infection hx Hyperlipidemia Hypertension Hypothyroidism Osteoarthritis Pneumonia annually. last 11/2019. Sleep apnea not using cpap currently Upper respiratory infection Surgical History History of colonoscopy History of shoulder surgery left History of tonsillectomy History of tooth extraction Family History Mother Diabetes Father Diabetes Emphysema of lung Sister Diabetes Other No family history of adverse response to anesthesia Social History Smoking Status: Never smoker Second Hand Exposure: Yes ( A CHILD); Hx Alcohol Use: No Hx Substance Use: No Preferred Language: Czech Communication Ability: Effective Instrument Fitter Required: No Beliefs That Will Affect Care: None marital status: Current Living Situation: Spouse current occupational status: retired Feels Safe at Home: Yes Assistive Devices: Denture - Upper, Glasses and Nebulizer Review of Systems Review of Systems: Neuro: (+) Falls, trauma, (-) slurred speech HEENT: (+) chronic BRUNO, (-) dizziness, dysphagia, visual or auditory changes CV: (-) CP, palpitations, swelling Resp: (+) SOB (+) cough GI: (-) appetite changes, N/V/D, bowel changes : (-) urinary changes Skin: (-) rashes Psych: (-) anxiety, depression Physical Exam Physical Exam: Neuro: AAOx4, PERRLA, no aphagia, memory changes, CNII-XII grossly intact HEENT: head normocephalic, moist mucus membranes CV: S1/S2, (-) M/G/R, (-) edema, cap refill < 3 seconds Resp: Lungs CTA in all barros. On RA GI: Abdomen S/NT/ND, Ax4 bowel sounds, (-) CVA tenderness Musculoskeletal: 5/5 B/L UE strength, 5/5 B/L LE strength. No gait disturbance Skin: (-) rashes , (-) erythema. Psych: euthymic mood Results & Data Results & Data ([facility]) Vital Signs (Past 12 Hours) Vital Signs Temp Pulse Resp BP Pulse Ox O2 Del Method O2 Flow Rate 07/02/22 07:28 94 Nasal Cannula 4 07/02/22 07:28 Nasal Cannula 4 07/02/22 07:28 37.8 C H 129 H 20 128/79 92 Nasal Cannula 4 Laboratory Results Short CBC 07/02/22 Range/Units 06:40 WBC 17.67 H (4.8-10.8) K/ul Hgb 15.6 (14.0-18.0) g/dl Hct 44.9 (40.1-51.0) % Plt Count 235 (130-400) K/uL BMP 07/02/22 06:40 Sodium 140 Potassium 3.4 L Chloride 104 Carbon Dioxide 25 BUN 20 Creatinine 0.86 Glucose 190 H Calcium 9.3 Liver Function 07/02/22 Range/Units 06:40 Total Bilirubin 0.8 (0.2-1.0) mg/dl AST 14 (13-39) U/L ALT 19 (7-52) U/L Alkaline Phosphatase 42 (34-104) U/L Albumin 4.3 (3.4-5.0) gm/dl Diagnostic Findings Chest X-Ray 07/02/22 07:30 XR chest 1V portable CLINICAL HISTORY: Atypical chest pain. COMPARISON STUDY: Chest radiograph December 05, 2019. FINDINGS: Lung volumes are diminished. This is unchanged. Bibasilar opacities favor atelectasis. No definite consolidation is noted. Cardiomegaly is unchanged. There is no evidence for pulmonary edema. No pneumothorax or pleural effusion. Elevation of the right hemidiaphragm is unchanged. IMPRESSION: Low lung volumes with bibasilar opacities that favor atelectasis. ACT 112: Negative or not required by law. Electronically signed by: Osmany Wilson M.D. 07/02/2022 7:57 AM Code Status & VTE Plan Code Status Full code in the event of cardiac or respiratory arrest Supervising Physician Co-Signing Physician Notes I have seen and examined the patient and have discussed the case with the provider above. I agree with the assessment and plan as stated. 76 yo M with severe persistent asthma that is overall uncontrolled with several exacerbations yearly for the past few years, and no intubations. He presents with 24 hours of SOB and coughing. He felt the onset of the exacerbation by getting jittery and abnormalities with his breathing, so he took prednisone from his rescue pack. He was somewhat better but overnight declined again prompting ER presentation today. He is much better after oxygen, albuterol neb, steroids and antibiotics given in the ER today. He denies fevers, chills, prolonged recent URI symptoms, sick contacts, and his flu/covid/rsv swab is negative. He denies any decreased appetite or poor PO intake earlier this week, although hasn't taken in much in the last day because of the breathing issues. Denies any GI symptoms. CXR with bilateral atelectasis and there is coarse rhonchi at the bases bilaterally. Heart rate is tachy without any murmurs, rubs, or gallops. There were rales heard in the anterior left lung field and the posterior lung field. Pulmonary auscultation with upper airway sounds present, improved with repositioning his chin up several times. He is in no acute distress (examined post initial ER treatment) and has no conversational dyspnea. He is on regular treatment with Xolair, singulair, pulmicort, Breo, azelastine intranasal, and spiriva. Historical record review shows PFTs from 03/19 showing obstructive flow with restrictive spirometry and no significant bronchodilator response, normal DLCO. Per his [facility] circulation representative, who last saw him 05/09/22, he was recovering from his fourth flare this year (the last was managed with outpatient medications) and the patient was sent to Neurology for further investigation into a possible neuromuscular condition. This workup is negative to date including acetylcholine receptor binding antibody and no evidence of Lambert Eaton myasthenia syndrome (LEMS) antibody (anti-VGCC) . Today's workup reveals no evidence of pneumonia on CXR, leucocytosis (on chronic prednisone and recently started outpatient rescue pack yesterday), normal lactate, normal renal function. Trop slightly elevated at 34.9 with a 2 hr repeat without change at 35.1. EKG with no clear evidence of active ischemia. Overall this is an uncontrolled asthmatic presenting with severe exacerbation. He has a history of allergic asthma and may also benefit from additional anti- cytokine therapy such as IL-5 inhibition (mepolizumab), etc. Cont steroids and nebulized bronchodilators and antibiotics. Sputum culture requested with h/o pseudomonas reported in the past. Per recent pulmology outpatient note, attempts to get a sputum culture to reaffirm this have been unsuccessful. Would ensure that he go back to outpatient clin tech after this admission to discuss if these exacerbations may be mediated by additional cytokine blocking therapies given recurrent exacerbations despite compliance with his current robust and comprehensive medial therapy. DO Woo (1) HTN (hypertension) Hypertension type: unspecified Qualified Code(s): I10 - Essential (primary) hypertension
[2022-07-02 09:54] LABS: Influenza A virus by PCR Negative (Neg); Influenza B virus by PCR Negative (Neg); RSV by PCR Negative (Neg); SARS CoV2 RNA(COVID-19) Ceph NEGATIVE (Negative)
[2022-07-02] MEDS ORDERED: MAGNESIUM HYDROXIDE SUSP 30 ML UDC PO PRN (11:32)
[2022-07-02] MEDS ORDERED: ALBUTEROL HFA 8 GM INHALER INH PRN (11:32)
[2022-07-02] MEDS ORDERED: ALBUT/IPRATROP 3MG/0.5MG NEB 3 ML VIAL INH PRN (11:32)
[2022-07-02] MEDS ORDERED: ALUMINUM/MAGNESIUM SUSP 30 ML UDC PO PRN (11:32)
[2022-07-02] MEDS ORDERED: SUMAtriptan succinate 25 MG TAB PO PRN (11:32)
[2022-07-02] MEDS ORDERED: ACETAMINOPHEN 325 MG TAB PO PRN (11:32)
[2022-07-02] MEDS ORDERED: ONDANSETRON INJ 2 MG/ML 2 ML VIAL IV PRN (11:32)
[2022-07-02] MEDS ORDERED: CETIRIZINE HCL 10 MG TABLET PO PRN (11:32)
[2022-07-02] MEDS: ALBUT/IPRATROP 3MG/0.5MG NEB 3 ML VIAL NEB SCH ×3 (12:14→19:24)
[2022-07-02] MEDS ORDERED: POTASSIUM CHLORIDE CRTAB 20 MEQ TABCR PO ONE (13:41)
[2022-07-02] MEDS: methylPREDNISolone 40 MG in SYRINGE 0 ML IV SCH ×2 (14:08→21:45)
[2022-07-02] MEDS ORDERED: GLUCAGON FOR INJ 1 MG VIAL SQ PRN (16:52)
[2022-07-02] MEDS ORDERED: GLUCOSE 40% GEL 15 GM TUBE PO PRN (16:52)
[2022-07-02] MEDS ORDERED: GLUCOSE 10 TAB/TUBE PO PRN (16:52)
[2022-07-02] MEDS ORDERED: CARBOHYDRATES FOR HYPOGLYCEMIA PO PRN (16:52)
[2022-07-02] MEDS ORDERED: PHARMACY GLYCEMIC MGMT CONSULT PRN (16:52)
[2022-07-02] MEDS ORDERED: DEXTROSE 50% 50 ML SYRINGE IV PRN (16:52)
--- NOTE | 2022-07-02 17:08 | Electrocardiogram Report ---
Test Reason : Blood Pressure : / mmHG Vent. Rate : 125 BPM Atrial Rate : 125 BPM P-R Int : 146 ms QRS Dur : 070 ms QT Int : 312 ms P-R-T Axes : 028 -04 041 degrees QTc Int : 450 ms Poor data quality, interpretation may be adversely affected Sinus tachycardia Poor R wave progression, consider anterior ND vs. lead placement vs. LVH Abnormal ECG When compared with ECG of 07-DEC-2019 09:42, No significant change was found Confirmed by Rocky Chaudhary ([id number]) on 07/02/2022 5:07:47 PM Referred By: REFERRED SELF Confirmed By:Rocky Chaudhary
--- NOTE | 2022-07-02 17:16 | Pulmonary Consultation ---
Date of Consultation July 02, 2022 Assessment & Plan (1) Shortness of breath: Etiology is unclear, but doubtful of an asthma exacerbation. No wheezes on exam. No significant peripheral eosinophilia. He has chronic shortness of breath which I think is related to poor conditioning and possibly component of ILD. ? Chronic aspiration. I highly suspect that he has steroid-induced weakness due to the frequency of which he uses oral corticosteroids. Additionally, he is on 3 different inhaled corticosteroid regimens including nebulized budesonide, Arnuity Ellipta and Breo Ellipta. I am not certain why he is on 3 different steroid inhalers. I do not have access to any of the outpatient work-up including pulmonary function testing, reported recent CT of his chest, sleep study or outpatient pulmonary progress notes. It is difficult to establish a plan of care without these records being available. Patient reports that he has a work-up for a work-up for neuromuscular disease which may be contributing to a component of hypoventilation. Recommend referral to outpatient pulmonary rehab. Recommending minimizing oral corticosteroids while inpatient. Case discussed with the hospitalist, patient and at bedside (2) Obstructive sleep apnea (adult) (pediatric): Not compliant with therapy due to claustrophobia. Recommend outpatient referral to a sleep psychologist for desensitization and other therapeutic strategies. (3) Bibasilar crackles: Etiology unclear. Will ask that the hospitalist service have the outside CT chest images uploaded to EMR. History of Present Illness Reason for Consultation: Restrictive lung disease/asthma exacerbation Attending Physician: Luis Delgado MD History of Present Illness History obtained by review of chart, discussion with hospitalist and discussion with patient and . 76-year-old male with a reported history of asthma and PHILLIP presenting to the hospital due to increasing weakness, cough and shortness of breath. Patient's notes that every time he becomes more short of breath, he becomes more more weak. She notes that he is not compliant with his CPAP. Patient reports that he is claustrophobic. Patient reports that he is on a number of inhalers at home including Arnuity, Breo and Spiriva. He also frequently uses his nebulizer. Also Pulmicort is listed on his nebulizer treatments. He notes that he checks his pulse oximetry frequently and anytime it drops down to 89%, he begins to wheeze. Allergies Allergy/AdvReac Type Severity Reaction Status Date / Time cat dander Allergy Unknown watery eyes Verified 06/27/20 06:16 No Known Drug Allergies Allergy Unknown . Verified 06/27/20 06:16 SUJATHA Inhibitors AdvReac Mild Cough Verified 06/27/20 06:16 Home Medications Medication Instructions Recorded Confirmed Type albuterol sulfate 90 mcg/actuation 2 puff inhalation Q4H PRN 02/25/19 07/02/22 Rx aerosol inhaler Shortness Of Breath #6.7 grams azelastine 205.5 mcg (0.15 %) 1 spray intranasal BID 06/29/19 07/02/22 History nasal spray budesonide 1 mg/2 mL suspension 1 mg inhalation QAM 06/29/19 07/02/22 History for nebulization (Pulmicort) cetirizine 10 mg tablet 10 mg PO DAILY PRN Allergy Symptoms 06/29/19 07/02/22 History doxazosin 2 mg tablet 2 mg PO HS 06/29/19 07/02/22 History ipratropium 0.5 mg-albuterol 3 mg 3 ml inhalation QID PRN Shortness 12/05/19 07/02/22 History (2.5 mg base)/3 mL nebulization Of Breath soln amlodipine 5 mg tablet 7.5 mg PO QAM 05/27/20 07/02/22 History aspirin 81 mg tablet,delayed 81 mg PO QAM 05/27/20 07/02/22 History release (Demarco Low Dose Aspirin) atorvastatin 10 mg tablet 20 mg PO HS 05/27/20 07/02/22 History fluticasone furoate 200 1 inh inhalation QAM 05/27/20 07/02/22 History mcg-vilanterol 25 mcg/dose inhalation powder (Breo Ellipta) levothyroxine 100 mcg tablet 100 mcg PO QAM 05/27/20 07/02/22 History montelukast 10 mg tablet 10 mg PO QPM 05/27/20 07/02/22 History omeprazole 20 mg capsule,delayed 20 mg PO QAM 05/27/20 07/02/22 History release sumatriptan succinate 25 mg tablet 25 mg PO UD PRN Headache 05/27/20 07/02/22 History (Imitrex) tiotropium bromide 18 mcg capsule 1 cap inhalation QPM 05/27/20 07/02/22 History with inhalation device (Spiriva with HandiHaler) cyanocobalamin (vitamin B-12) 1,000 mcg PO DAILY 07/02/22 07/02/22 History 1,000 mcg tablet (Vitamin B-12) fluticasone furoate 100 1 inh inhalation DAILY 07/02/22 07/02/22 History mcg/actuation blister powder for inhalation (Arnuity Ellipta) glipizide 5 mg tablet 5 mg PO BID 07/02/22 07/02/22 History losartan 25 mg tablet 25 mg PO DAILY 07/02/22 07/02/22 History Patient History Medical History (Updated 07/02/22 @ 17:09 by Benny Last MD) Asthma Asthma exacerbation Bibasilar crackles Chronic back pain Chronic headaches Chronic steroid use COPD Diabetes mellitus, type 2 NIDDM GERD (gastroesophageal reflux disease) H. pylori infection hx Hyperlipidemia Hypertension Hypothyroidism Obstructive sleep apnea (adult) (pediatric) Osteoarthritis Pneumonia annually. last 11/2019. Shortness of breath Sleep apnea not using cpap currently Upper respiratory infection Surgical History History of colonoscopy History of shoulder surgery left History of tonsillectomy History of tooth extraction Family History Mother Diabetes Father Diabetes Emphysema of lung Sister Diabetes Other No family history of adverse response to anesthesia Social History Smoking Status: Never smoker Second Hand Exposure: Yes ( A CHILD); Do You Dip or Chew Tobacco: No; Hx Alcohol Use: No Hx Substance Use: No Preferred Language: Persian Communication Ability: Effective Retail Support Manager Required: No Beliefs That Will Affect Care: None marital status: Current Living Situation: Spouse current occupational status: retired Feels Safe at Home: Yes Safety Concerns: Feels Safe At This Time Assistive Devices: None Review of Systems Review of Systems: All systems reviewed & are unremarkable except as noted in HPI & below Physical Exam Physical Exam: Constitutional: Obese appearing male in no apparent distress. Sitting up in bed. Eyes: Pupils are equal round and reactive to light. Conjunctivae are normal. Anicteric sclera. Ears nose, mouth and throat: Deferred. Neck: Trachea is midline. Visual inspection is normal. Respiratory: Bibasilar crackles. No wheeze. No tachypnea. Cardiovascular: Regular rate and rhythm. No murmurs. No edema. Gastrointestinal: Protuberant abdomen. Musculoskeletal: No cyanosis. Patient is able to move all extremities. Skin: No rashes, warm dry and intact. Neurologic: No obvious focal neurological deficits seen. Psychiatric: Alert and oriented x3 with a euthymic affect. Results & Data Results & Data ([facility]) Vital Signs (Past 12 Hours) Vital Signs Temp Pulse Pulse Resp BP BP BP 07/02/22 17:04 36.9 C 113 H 16 158/98 H 07/02/22 16:30 114 H 07/02/22 15:15 117 H 20 117/94 07/02/22 11:32 07/02/22 11:30 110 H 18 07/02/22 11:00 110 H 23 159/92 H 07/02/22 09:00 119 H 18 07/02/22 08:30 119 H 26 H 07/02/22 08:30 135/88 07/02/22 07:28 07/02/22 07:28 07/02/22 07:28 37.8 C H 129 H 20 128/79 Pulse Ox Pulse Ox O2 Del Method O2 Del Method O2 Flow Rate O2 Flow Rate 07/02/22 17:04 94 Room Air 07/02/22 16:30 07/02/22 15:15 96 Nasal Cannula 3 07/02/22 11:32 94 Nasal Cannula 3 07/02/22 11:30 07/02/22 11:00 96 07/02/22 09:00 07/02/22 08:30 07/02/22 08:30 07/02/22 07:28 94 Nasal Cannula 4 07/02/22 07:28 Nasal Cannula 4 07/02/22 07:28 92 Nasal Cannula 4 PG Care Time/CCT Total # of Minutes Spent Total Time Spent with Patient: Total time spent is greater than 50% in coordination of care (as documented) at patient's floor/unit and/or counseling patient: Coding Level of Care Code 93460 Initial Inpt Care Lvl 3 Diagnoses Shortness of breath R06.02 Obstructive sleep apnea (adult) (pediatric) G47.33 Bibasilar crackles R09.89
[2022-07-02] MEDS: INSULIN ASPART PER UNIT SC SCH ×2 (17:50→21:41)
[2022-07-02] MEDS ORDERED: LANTUS PER UNIT CHARGE SQ SCH (18:00)
[2022-07-02 20:00] LABS: Estimated Average Glucose 203 mg/dl; Hemoglobin A1C 8.7 % (4.5-5.6)
[2022-07-02] MEDS ORDERED: LANTUS PER UNIT CHARGE SQ ONE (21:00)
[2022-07-02] MEDS: DOXAZosin MESYLATE TAB 2 MG TAB PO SCH (21:32)
[2022-07-02] MEDS: ATORVASTATIN 20 MG TAB PO SCH (21:32)
[2022-07-02] MEDS: MONTELUKAST SODIUM 10 MG TABLET PO SCH (21:32)
[2022-07-02] MEDS: AZELASTINE HCL 0.1% NASAL 200 SPRAYS/27,400 MCG BTL SCH (21:33)
[2022-07-02] MEDS: UMECLIDINIUM BROMIDE 62.5MCG/BLISTER 7 PUFFS/INHALER INH SCH (21:33)
[2022-07-03] MEDS ORDERED: INSULIN ASPART PER UNIT SC ONE (01:00)
[2022-07-03] MEDS: methylPREDNISolone 40 MG in SYRINGE 0 ML IV SCH ×3 (06:05→22:02)
[2022-07-03] MEDS: LEVOTHYROXINE SODIUM 100 MCG TABLET PO SCH (06:05)
[2022-07-03 06:20] LABS: Hematocrit (blood only) 41.5 % (40.1-51.0); Hemoglobin 14.3 g/dl (14.0-18.0); Mean Corpuscular Hemoglobin 28.9 pg (25.0-34.0); Mean Corpuscular Hgb Conc 34.5 g/dL (32.0-36.0); Mean Platelet Volume 9.6 fL (9.4-12.4); Platelet Count 237 K/uL (130-400); RDW Coefficient of Variation 14.6 % (11.5-14.5); RDW Standard Deviation 44.4 fL (36.4-46.3); Red Blood Count 4.94 M/uL (4.63-6.08); White Blood Count 10.58 K/ul (4.8-10.8)
[2022-07-03 06:51] LABS: BUN Creatinine Ratio 30.6 (10-20); Calcium 9.5 mg/dl (8.5-10.1); Creatinine Clr Calc Pharmacy 60.5 ml/min; Est GFR (African American) 87.1 ml/min; Est GFR (Non-African American) 75.1 ml/min; Magnesium 2.1 mg/dl (1.7-2.4); Potassium 4.2 mmol/L (3.5-5.1)
[2022-07-03] MEDS: BUDESONIDE 0.5 MG/2 ML VIAL (PULMICORT) INH SCH (07:13)
[2022-07-03] MEDS: ALBUT/IPRATROP 3MG/0.5MG NEB 3 ML VIAL NEB SCH ×4 (07:15→19:20)
[2022-07-03] MEDS ORDERED: AZITHROMYCIN 500 MG in DEXTROSE 5% 250 ML IV SCH (08:00)
[2022-07-03] MEDS: AZELASTINE HCL 0.1% NASAL 200 SPRAYS/27,400 MCG BTL SCH ×2 (08:07→19:43)
[2022-07-03] MEDS: FLUTICASONE FUROATE 100MCG 14 PUFFS/INHALER INH SCH (08:08)
[2022-07-03] MEDS: LOSARTAN POTASSIUM 25 MG TAB PO SCH (08:08)
[2022-07-03] MEDS: FLUTICASONE/VILANTEROL 200/25MCG 14 PUFFS/INHALER INH SCH (08:08)
[2022-07-03] MEDS: amLODIPine BESYLATE 5 MG TAB PO SCH (08:09)
[2022-07-03] MEDS: AZITHROMYCIN 250 MG TAB PO SCH (08:09)
[2022-07-03] MEDS: PANTOprazole 40 MG TAB PO SCH (08:12)
[2022-07-03] MEDS: CYANOCOBALAMIN (B-12) 500 MCG TABLET PO SCH (08:12)
[2022-07-03] MEDS: ENOXAPARIN INJ 40 MG/0.4 ML SYR SQ SCH (08:13)
[2022-07-03] MEDS: ASPIRIN 81 MG ECTAB PO SCH (08:13)
[2022-07-03] MEDS: INSULIN ASPART PER UNIT SC SCH ×4 (08:16→21:49)
[2022-07-03] MEDS: cefTRIAXone SODIUM 2,000 MG in DEXTROSE 5% 50 ML IV SCH (08:19)
[2022-07-03] MEDS ORDERED: INSULIN HUMAN REGULAR PER UNIT 8 UNITS in SYRINGE 7.92 ML IV ONE (08:45)
[2022-07-03] MEDS: LANTUS PER UNIT CHARGE SQ SCH ×2 (09:14→21:49)
--- NOTE | 2022-07-03 13:58 | Pharmacy Report ---
Pharmacy Glycemic Short Note 2 - Date of Service July 03, 2022 - Glycemic Short BSG Results (Last 24 hours): 07/02/22 07/02/22 07/02/22 16:43 16:43 20:16 Glucose POC Glucose 371 H* 385 H* 305 H* 07/02/22 07/03/22 07/03/22 20:18 00:36 06:05 Glucose 218 H POC Glucose 290 H 145 H 07/03/22 07/03/22 07/03/22 07:39 07:40 11:23 Glucose POC Glucose 327 H* 318 H* 246 H OUTPATIENT ANTIDIABETIC REGIMEN: * glipizide 5 mg PO BID * HbA1C = 8.7% (07/02/22) ASSESSMENT: * Mr Sebastian is a 76 y/o M admitted with SOB. He is currently on Solu- Medrol 40 mg IV q8 hours. * BSGs last night were 385-292 mg/dL. Patient received 30 units of Lantus (full weight-based stress of 2) + 27 units of Novolog. * BSG at 0100 was 145 mg/dL. * However, fasting today was 318 mg/dL. * For Lantus, initiate weight-based stress of 3 Lantus. Patient has elevated HbA1C + is on high dose steroids. * For Novolog, will tighten past weight-based stress of 3 due to above factors. Overnight checks due to above. * IV insulin bolus given for breakfast BSG of 318 mg/dL. Lunch BSG nicely reduced at 246 mg/dL so continue. PLAN FOR INPATIENT GLYCEMIC CONTROL: * Hold outpatient oral diabetes medications * Basal insulin * Lantus 20 units SQ BID * Bolus insulin * NovoLog per scale ACHS or Q6hrs while NPO * Goal Range: Low 110 mg/dL - High 140 mg/dL * Correction Factor: 20 mg/dL/unit * Nutritional / Prandial insulin per carb ratio of 1 unit per 5 grams CHO consumed
--- NOTE | 2022-07-03 16:25 | Hospitalist Progress Note ---
Date of Service July 03, 2022 Assessment & Plan (1) Asthma exacerbation: (2) Upper respiratory infection: (3) Sleep apnea: (4) HTN (hypertension): (5) Dyslipidemia: (6) DM type 2 (diabetes mellitus, type 2): (7) Gastroesophageal reflux disease: (8) Hypothyroidism: (9) BPH (benign prostatic hyperplasia): Admission and Anticipated Discharge Date Admission Date: July 02, 2022 Subjective Patient is seen and examined at bedside States feeling lot better today Only reports minimal cough Dyspnea, wheezing much improved Denies any chest pain, nausea, abdominal pain No other complaints Review of Systems Review of Systems: All systems reviewed & are unremarkable except as noted in Subjective Physical Exam Physical Exam: Physical Exam: Vitals signs as noted above General Appearance:Moderately built and nourished, no apparent distress Head: normocephalic, Atraumatic Eyes: normal inspection, EOMI Neck: supple, Trachea midline Respiratory/Chest: Decreased breath sounds, Basal crackles, No accessory muscle use Cardiovascular: S1, S2, No murmur Abdomen/GI:Soft, Non tender, Bowel sounds present Extremities/Musculoskeletal:normal inspection, no edema Neurologic/Psych:AAOX3, grossly no focal neurological deficits Skin: normal color, warm Results & Data Results & Data ([facility]) Vital Signs (Past 12 Hours) Vital Signs Temp Pulse Pulse Resp BP BP Pulse Ox 07/03/22 15:42 36.8 C 100 H 19 130/74 92 07/03/22 15:34 109 H 07/03/22 14:52 78 18 95 07/03/22 12:35 93 07/03/22 11:22 36.9 C 118 H 19 141/77 H 92 07/03/22 10:13 80 18 94 07/03/22 09:57 07/03/22 08:14 36.7 C 117 H 19 145/77 H 92 07/03/22 07:20 96 H 07/03/22 07:16 109 H 16 93 O2 Del Method 07/03/22 15:42 Room Air 07/03/22 15:34 07/03/22 14:52 Room Air 07/03/22 12:35 07/03/22 11:22 Room Air 07/03/22 10:13 Room Air 07/03/22 09:57 Room Air 07/03/22 08:14 Room Air 07/03/22 07:20 07/03/22 07:16 Room Air Laboratory Results Acute Asthma exacerbation: Restrictive lung disease: Hypoxia H/O allergic asthma Multiple exacerbations Sleep Apnea On chronic steroids: Prednisone 5mg PO daily Follows with Pulm (Dr. Paul) recc for eval of neuromuscular wall weakness as noted on PFT's; possible referral to genetics and EMG --CXR:Low lung volumes with bibasilar opacities that favor atelectasis. --Negative COVID, RSV, influenza screen --Normal Procalcitonin --Blood Cx pending Outpatient Anti-VGCC antibody: negative Has Pulm appt 07/12/22 scheduled Last PFT's 02/2022: FEV1 79% Continue Nebs, Steroids, home inhalers Does not use CPAP at night Empirically on antibiotics as has opacities on chest x-ray Pulmonary Hygiene Admitting physician discussed with electroplating laborer who suggested it is reasonable to consider Dupixent or Tezspire as outpatient. Suggest to follow-up with Dr. Romero for further recommendations Appreciate Pulmonary Input Allergic Rhinitis: Q month SQ injections of Omalizumab Takes Cetirizine Follows with [facility] electroplating laborer Q6 months Hypertension: Continue Amlodipine, Losartan Dyslipidemia: on Atorvastatin Diabetes mellitus type 2: HbA1C: 8.7 Takes Glipizide at home Continue Insulin while hospitalized Hypothyroidism: TSH 0.97 05/2022 Continue Levothyroxine GERD: on PPI DVT Px: Lovenox SQ Code Status Full code Diagnostic Findings Short CBC 07/03/22 Range/Units 06:05 WBC 10.58 (4.8-10.8) K/ul Hgb 14.3 (14.0-18.0) g/dl Hct 41.5 (40.1-51.0) % Plt Count 237 (130-400) K/uL BMP 07/03/22 06:05 Sodium 138 Potassium 4.2 D Chloride 105 Carbon Dioxide 23 BUN 30 H Creatinine 0.98 Glucose 218 H Calcium 9.5 (1) HTN (hypertension) Hypertension type: unspecified Qualified Code(s): I10 - Essential (primary) hypertension
[2022-07-03] MEDS: DOXAZosin MESYLATE TAB 2 MG TAB PO SCH (19:43)
[2022-07-03] MEDS: ATORVASTATIN 20 MG TAB PO SCH (19:43)
[2022-07-03] MEDS: UMECLIDINIUM BROMIDE 62.5MCG/BLISTER 7 PUFFS/INHALER INH SCH (19:44)
[2022-07-03] MEDS: MONTELUKAST SODIUM 10 MG TABLET PO SCH (19:44)
[2022-07-04] MEDS: INSULIN ASPART PER UNIT SC SCH ×5 (00:09→13:01)
[2022-07-04] MEDS: methylPREDNISolone 40 MG in SYRINGE 0 ML IV SCH (05:34)
[2022-07-04] MEDS: LEVOTHYROXINE SODIUM 100 MCG TABLET PO SCH (05:34)
[2022-07-04 07:07] LABS: Basophils # (auto) 0.01 K/uL (0-0.2); Basophils % (auto) 0.1 %; Hematocrit (blood only) 41.5 % (40.1-51.0); Hemoglobin 14.4 g/dl (14.0-18.0); Immature Granulocytes # (auto) 0.07 K/uL (0.00-0.02); Immature Granulocytes % (auto) 0.7 %; Lymphocytes # (auto) 0.71 K/uL (1.2-3.4); Lymphocytes % (auto) 7.4 %; Mean Corpuscular Hemoglobin 29.5 pg (25.0-34.0); Mean Corpuscular Hgb Conc 34.7 g/dL (32.0-36.0); Monocytes # (auto) 0.41 K/uL (0.24-0.82); Monocytes % (auto) 4.3 %; Neutrophils # (auto) 8.37 K/uL (1.4-6.5); Neutrophils % (auto) 87.5 %; Platelet Count 253 K/uL (130-400); RDW Coefficient of Variation 14.5 % (11.5-14.5); RDW Standard Deviation 44.9 fL (36.4-46.3); Red Blood Count 4.88 M/uL (4.63-6.08); White Blood Count 9.57 K/ul (4.8-10.8)
[2022-07-04] MEDS: BUDESONIDE 0.5 MG/2 ML VIAL (PULMICORT) INH SCH (07:19)
[2022-07-04] MEDS: ALBUT/IPRATROP 3MG/0.5MG NEB 3 ML VIAL NEB SCH ×2 (07:20→10:39)
[2022-07-04 07:40] LABS: BUN Creatinine Ratio 30.7 (10-20); Calcium 9.2 mg/dl (8.5-10.1); Creatinine Clr Calc Pharmacy 57.3 ml/min; Est GFR (African American) 83.9 ml/min; Est GFR (Non-African American) 72.4 ml/min; Magnesium 2.2 mg/dl (1.7-2.4); Potassium 3.8 mmol/L (3.5-5.1)
[2022-07-04] MEDS ORDERED: predniSONE 20 MG TAB PO SCH (09:00)
[2022-07-04] MEDS ORDERED: LANTUS PER UNIT CHARGE SQ SCH (09:00)
[2022-07-04] MEDS: AZELASTINE HCL 0.1% NASAL 200 SPRAYS/27,400 MCG BTL SCH (09:17)
[2022-07-04] MEDS: cefTRIAXone SODIUM 2,000 MG in DEXTROSE 5% 50 ML IV SCH (09:17)
[2022-07-04] MEDS: FLUTICASONE/VILANTEROL 200/25MCG 14 PUFFS/INHALER INH SCH (09:18)
[2022-07-04] MEDS: FLUTICASONE FUROATE 100MCG 14 PUFFS/INHALER INH SCH (09:18)
[2022-07-04] MEDS: amLODIPine BESYLATE 5 MG TAB PO SCH (09:19)
[2022-07-04] MEDS: LOSARTAN POTASSIUM 25 MG TAB PO SCH (09:20)
[2022-07-04] MEDS: ASPIRIN 81 MG ECTAB PO SCH (09:20)
[2022-07-04] MEDS: AZITHROMYCIN 250 MG TAB PO SCH (09:21)
[2022-07-04] MEDS: CYANOCOBALAMIN (B-12) 500 MCG TABLET PO SCH (09:21)
[2022-07-04] MEDS: PANTOprazole 40 MG TAB PO SCH (09:21)
[2022-07-04] MEDS: ENOXAPARIN INJ 40 MG/0.4 ML SYR SQ SCH (09:22)
--- NOTE | 2022-07-04 10:31 | Pharmacy Report ---
Pharmacy Glycemic Short Note 2 - Date of Service July 04, 2022 - Glycemic Short BSG Results (Last 24 hours): 07/03/22 07/03/22 07/03/22 11:23 16:03 20:15 Glucose POC Glucose 246 H 214 H 270 H 07/04/22 07/04/22 07/04/22 00:03 05:32 06:03 Glucose 175 H POC Glucose 232 H 169 H 07/04/22 07:14 Glucose POC Glucose 154 H OUTPATIENT ANTIDIABETIC REGIMEN: * glipizide 5 mg PO BID * HbA1C = 8.7% (07/02/22) ASSESSMENT: * Mr Sebastian is a 76 y/o M admitted with SOB. * The Solu-Medrol 40 mg IV q8 hours was stopped and is transitioned to Prednisone taper starting today with Prednisone 40 mg daily. * BSGs last night were 214-270 mg/dL. Patient received 40 units of Lantus (full weight-based stress of 3) + 46 units of Novolog. * BSG at 0000 was 232 mg/dL. * However, fasting today was 169 mg/dL. * Plan to give 25 units of Lantus this morning to help with covering steroid effects. Anticipate SoluMedrol to be wearing off; will loosen novolog later today * Steroids decreased by more than 50% anticipates insulin needs to decrease; therefore, plan to cut back Lantus by about 50% PLAN FOR INPATIENT GLYCEMIC CONTROL: * Hold outpatient oral diabetes medications * Basal insulin * Lantus 25 units SQ Daily * Bolus insulin * NovoLog per scale ACHS or Q6hrs while NPO * Goal Range: Low 110 mg/dL - High 140 mg/dL * Correction Factor: 15 mg/dL/unit * Nutritional / Prandial insulin per carb ratio of 1 unit per 4 grams CHO consumed
--- NOTE | 2022-07-04 14:58 | Discharge Summary ---
Date of Service July 04, 2022 Admission HPI Per Admitting Provider Mr. Baker is a 76-year-old male that presented to [facility] with shortness of breath, cough and sore throat that has been bothering him over the last 2 days. He stated that he walks with a cane and was sitting on the edge of his sofa and felt too weak to stand and he fell resulting in a skin tear on his left arm. This patient has a complex history of restrictive lung disease and moderate to severe asthma and he has experienced approximately 4 asthma exacerbations this year. He takes chronic steroids and follows with Dr. Paul outpatient pulm and his next appointment is 07/12. In review of EMR it appears that his last PFT was 02/2022 with a FEV1 of 79%. Additionally he was referred to Dr. Daniels with neurology for evaluation of neuromuscular wall weakness and possible genetic work-up with EMG. Anti-V GCC antibody was negative. He is on a complex regimen for his asthma which includes Spiriva, Arnuity Ellipta, Breo, Singulair, and as needed duo nebulizers. Chest x-ray showed low lung volumes with bibasilar opacities indicating atelectasis; will repeat in a.m. due to poor imaging. Patient reports triggers to his asthma to be pet dander, pollen, dust mites and upper respiratory illness . Patient has been vaccinated against influenza and COVID, no boosters. Additional past medical history includes sleep apnea (not compliant with CPAP), HTN, allergic rhinitis (follows with Allergy Q6 months and is on Omalizumab), HLD, NIDDM2, hypothyroidism, and GERD. When I examined the patient he was sitting upright in his bed in tripod position tachycardic using diaphragmatic muscles for breathing. He had just received a nebulizer treatment and steroid by ED staff and by the end of our conversation he reported feeling improved and his heart rate did go down to the low 110's. Patient troponin in ED 34.9, likely related to increased ischemic demand on the heart; do not suspect ACS but will trend troponin x1. Complete bio fire pending, however appears negative for COVID and influenza, lactate 1.2 , procalcitonin pending. Sputum culture pending. Suspect patient has viral upper respiratory infection with asthma exacerbation. Will discuss with on-call pulmonary for further recommendations. Patient will be admitted for further evaluation and management. Please see A/P for further details. Admission Exam Per Admitting Provider Neuro: AAOx4, PERRLA, no aphagia, memory changes, CNII-XII grossly intact HEENT: head normocephalic, moist mucus membranes CV: S1/S2, (-) M/G/R, (-) edema, cap refill < 3 seconds Resp: Lungs CTA in all barros. On RA GI: Abdomen S/NT/ND, Ax4 bowel sounds, (-) CVA tenderness Musculoskeletal: 5/5 B/L UE strength, 5/5 B/L LE strength. No gait disturbance Skin: (-) rashes , (-) erythema. Psych: euthymic mood Principal Diagnosis hypoxia Discharge Exam General Appearance:Moderately built and nourished, no apparent distress Head: normocephalic, Atraumatic Eyes: normal inspection, EOMI Neck: supple, Trachea midline Respiratory/Chest: Decreased breath sounds, no crackles or wheezes, No accessory muscle use Cardiovascular: S1, S2, No murmur Abdomen/GI:Soft, Non tender, Bowel sounds present Extremities/Musculoskeletal:normal inspection, no edema Neurologic/Psych:AAOX3, grossly no focal neurological deficits Skin: normal color, warm Discharge Data Allergies Allergy/AdvReac Type Severity Reaction Status Date / Time cat dander Allergy Unknown watery eyes Verified 06/27/20 06:16 No Known Drug Allergies Allergy Unknown . Verified 06/27/20 06:16 SUJATHA Inhibitors AdvReac Mild Cough Verified 06/27/20 06:16 Consultations 07/02/22 08:21 ED Decision to Admit Stat 07/02/22 11:10 Consult Pulmonology Routine Hospital Course (1) Asthma exacerbation: - history of recurrent asthma exacerbations - up to 5 this year - on prednisone 5mg daily chronically - follows with outside pulm - no history of smoking, per patient - being worked up for neuromuscular disease - on multiple steroid inhalers per outside pulm - given high dose IV steroids with improvement on this admission - will discharge on prednisone taper due to chronic steroid use - has follow up with pulm 07/12/2022 - 2-step without need for ambulatory oxygen - has allergy appointment 07/05/2022 - discharge on short abx course (2) Upper respiratory infection: - see above (3) Sleep apnea: - not on CPAP (4) HTN (hypertension): - continue home meds (5) Dyslipidemia: - continue statin (6) DM type 2 (diabetes mellitus, type 2): - resume home meds on discharge (7) Gastroesophageal reflux disease: - continue PPI (8) Hypothyroidism: - continue levothyroxine (9) BPH (benign prostatic hyperplasia): - continue tamulosin Total Time Total Time Spent Total Time Spent (In Minutes): 27 Total Time Includes: Examination of the Patient, Discharge Planning and Medication Reconciliation Discharge Plan Discharge Items Patient Disposition: Home - Self-Care Reason For Visit: COUGH,SOB Discharge Diagnosis: pneumonia, astham exacerbation Activity: Resume your previous activity Non-emergency contact: Primary Care Provider, Specialist and Web Assistant Call non-emergency contact if: you have any medication questions and your symptoms worsen Follow-up/Referrals: Brendon Sierra MD [Physician] - 07/05/22 1:00 pm Enrico Mccauley MD [Primary Care Provider] - 07/10/22 11:00 am (Date & Time 07/10/2022 11:00 AM Provider MARIA GUADALUPE [place] Department [facility] ) Eva Sebastian CRNP [Outside Practitioners] - 07/12/22 11:00 am (Date & Time 07/12/2022 11:00 AM Provider MARIA GUADALUPE [place] Department Pulmonary Medicine, [facility] ) Diet: Carb Consistent or DM2 and Heart Healthy Addtl Attending Provider Instructions: You were admitted for shortness of breath. You were started on IV steroids and antibiotics with improvement in your symptoms. You likely have some type of pneu monia or airway inflammation causing airway spasm and shortness of breath. You will be discharged on 3 more days of antibiotics and a steroid taper with prednisone with 40mg for 2 more days, 30mg for 3 days, 20mg for 3 days, 10mg for 3 days 5mg for 3 days. You should follow up with your putty tinter maker as scheduled 07/12/2022. You also have an allergy appointment set up for 07/05/2022 which you should attend. Pending Studies at Discharge: No Stand-Alone Forms: My [employer], Smoking Cessation Medications and DC Order Prescriptions: New prednisone 10 mg Tablet 30 mg PO DAILY Qty: 9 0RF prednisone 10 mg Tablet 10 mg PO DAILY Qty: 3 0RF azithromycin 250 mg Tablet 500 mg PO Q24H Qty: 1 0RF prednisone 20 mg Tablet 20 mg PO DAILY Qty: 3 0RF prednisone 20 mg Tablet 40 mg PO DAILY Qty: 2 0RF prednisone 5 mg Tablet 5 mg PO DAILY Qty: 3 0RF amoxicillin-pot clavulanate 875-125 mg tablet 1 tab PO BID Qty: 7 0RF Continued albuterol sulfate 90 mcg/actuation HFA aerosol inhaler 2 puff INHALATION Q4H PRN (Reason: Shortness Of Breath) Qty: 6.7 0RF budesonide [Pulmicort] 1 mg/2 mL Suspension For Nebulization 1 mg inhalation QAM azelastine 0.15 % (205.5 mcg) [place],Non-Aerosol 1 spray INTRANASAL BID cetirizine 10 mg tablet 10 mg PO DAILY PRN (Reason: Allergy Symptoms) doxazosin 2 mg tablet 2 mg PO HS atorvastatin 10 mg tablet 20 mg PO HS amlodipine 5 mg tablet 7.5 mg PO QAM aspirin [Demarco Low Dose Aspirin] 81 mg tablet,delayed release (DR/EC) 81 mg PO QAM levothyroxine 100 mcg tablet 100 mcg PO QAM omeprazole 20 mg capsule,delayed release(DR/EC) 20 mg PO QAM montelukast 10 mg tablet 10 mg PO QPM Spiriva with HandiHaler 18 mcg capsule, w/inhalation device 1 cap Inhalation QPM fluticasone furoate-vilanterol [Breo Ellipta] 200-25 mcg/dose blister with device 1 inh INHALATION QAM sumatriptan succinate [Imitrex] 25 mg Tablet 25 mg PO UD PRN (Reason: Headache) ipratropium-albuterol 0.5 mg-3 mg(2.5 mg base)/3 mL solution for nebulization 3 ml INHALATION QID PRN (Reason: Shortness Of Breath) cyanocobalamin (vitamin B-12) [Vitamin B-12] 1,000 mcg Tablet 1,000 mcg PO DAILY losartan 25 mg Tablet 25 mg PO DAILY glipizide 5 mg Tablet 5 mg PO BID Arnuity Ellipta 100 mcg/actuation Blister With Device 1 inh INHALATION DAILY Discharge Orders: Discharge Order (Routine); Ordered 07/04/22 Ordered By: Darell Lange/Other Patient Handouts: High Blood Sugar (Hyperglycemia), Hypoglycemia (Low Blood Sugar), Managing Type 2 Diabetes, Diabetes: Meal Planning Admission Data Admit Date/Time: 07/02/22 08:48 Attending Provider: Darell Brunson Admit Provider: Luis Delgado Primary Care Provider: Enrico Mccauley Other Providers: Luis Delgado ; Benny Last Other Interventions: Discharge Summary Assessment (RN) Last Done: 07/04/22 13:58
[2022-07-05] MEDS ORDERED: INSULIN ASPART PER UNIT SC SCH
[2022-07-07] MEDS ORDERED: predniSONE 10 MG TABLET PO SCH (09:00)
[2022-07-10] MEDS ORDERED: predniSONE 20 MG TAB PO SCH (09:00)
[2022-07-13] MEDS ORDERED: predniSONE 10 MG TABLET PO SCH (09:00)
[2022-07-16] MEDS ORDERED: predniSONE 5 MG TAB PO SCH (09:00)
== END 2022-07-04 15:17 | disposition home or self-care (01) | DRG 202 ==
LOC: ED 07:06 → EDINP 08:48 → SUATTDRO 08:48 → 2S 10:31

== ENCOUNTER 2023-07-25 04:02 | Inpatient (IN) ==
--- OUTSIDE RECORDS SUMMARY | 2023-07-25 04:07 | External Medical Summary | Summary of Care ---
Author Name Unknown Organization [facility] Address [address] [facility] [place] [address] Phone [phone] Care Team Providers Care Risk Control Representative Name Role Phone Shana Hamlin MD Primary Care Provider [phone] Reason for Visit * Reason Onset Date Comments Medication Refill 07/18/2023 Encounter Details Date Type Department Care Team (Late st Contact Info) Description 07/18/2023 Refill Family Practice [facility] [address] [phone] Shana Hamlin MD [address] [place] [id number] Type 2 diabetes mellitus with hemoglobin A1c goal of less than 7.5% (HCC) Allergies Active Allergy Reactions Criticality Noted Date Comments Gianluca Inhibitors Cough 06/12/2016 Cat Dander 03/31/2020 Ragweed 02/16/2020 Per patient's he is allergic to all weeds, trees, grasses documented as of this encounter (statuses as of 07/22/2023) Medications Medication Sig Dispensed Refills Start Date End Date Status ASPIRIN 81 MG PO TABS one tablet daily 0 Active Blood Glucose Monitoring Suppl ([employer] Software ULTRA SYSTEM) W/DEVICE KITIndications:Type 2 diabetes mellitus with hemoglobin A1c goal of less than 7.5% (HCC) Use as directed 2 times a day. E11.9 1 Kit 0 07/27/2016 Active Azelastine HCl 0.1 % nasal spray Administer 1 [place] into nostril 2 times a day. 30 mL 5 04/13/2019 Active Tadalafil (CIALIS) 20 MG TabletIndications:E rectile dysfunction, unspecified erectile dysfunction type Take 1 Tab by mouth daily as needed for Erectile Dysfunction. Prior to intercourse, no more than 1 dose in 24 hours. 24 Tab 3 11/04/2019 Active cetirizine (ZYRTEC) 10 MG Tablet Take 1 Tab by mouth daily. 90 Tab 3 12/14/2019 Active Nitroglycerin 0.4 MG Sublingual Tablet Sublingual (Nitrostat) Place 1 Tab under the tongue every 5 minutes as needed for Pain, Chest. up to 3 doses in 15 minutes 25 Tab 11 01/12/2021 Active SUMAtriptan Succinate 25 MG Oral Tablet (Imitrex)Indication s:Migraine variant take 2 tablets by mouth at onset of migraine, and 1 tablet every 2 hours if needed; not more than 5 tablets in 24 hours 6 Tablet 11 04/16/2022 Active Vitamin B-12 1000 MCG Oral Tablet TAKE 1 TABLET BY MOUTH ONCE DAILY 100 Tablet 2 06/07/2022 Active Atorvastatin Calcium 20 MG Oral Tablet (Lipitor)Indication s:Dyslipidemia TAKE 1 TABLET BY MOUTH ONCE DAILY 90 Tablet 3 07/22/2022 Active Losartan Potassium 25 MG Oral Tablet (Cozaar) Take 1 Tablet by mouth in the morning. 90 Tablet 3 07/31/2022 Active Xolair 150 MG/ML Subcutaneous Solution Prefilled Syringe (Omalizumab)Indicat ions:Eosinophilic asthma INJECT 2 SYRINGES UNDER THE SKIN EVERY 4 WEEKS 2 mL 6 08/03/2022 Active predniSONE 5 MG Oral Tablet (Deltasone) Take 1 Tablet by mouth in the morning. 90 Tablet 3 08/15/2022 Active Doxazosin Mesylate 2 MG Oral Tablet (Cardura)Indication s:Urinary frequency TAKE 1 TABLET BY MOUTH EVERY EVENING 90 Tablet 3 08/21/2022 Active [facility] Glucose Meter Test Strips In Vitro Strip (Glucose Blood)Indications:T ype 2 diabetes mellitus with hemoglobin A1c goal of less than 8.0% ([facility]) Use up to four times daily to check blood glucose 200 Strip 3 09/28/2022 Active Spiriva HandiHaler 18 MCG Inhalation Capsule (tiotropium bromide)Indications :Severe persistent asthma dependent on systemic steroids INHALE ONE CAPSULE VIA HANDIHALER ONE TIME DAILY , DO NOT SWALLOW 30 Capsule 11 10/10/2022 Active Albuterol Sulfate HFA 108 (90 Base) MCG/ACT Inhalation Aerosol SolutionIndications :Complicated acute bronchitis Inhale 2 Puffs by mouth every 4 hours as needed for Wheezing. 18 g 1 10/12/2022 Active Ipratropium-Albuter ol 0.5-2.5 (3) MG/3ML Inhalation Solution (Duoneb)Indications :Moderate persistent asthma with acute exacerbation INHALE THE CONTENTS OF ONE VIAL (3 ML) VIA NEBULIZER FOUR TIMES A DAY NEEDED. 360 mL 5 10/28/2022 Active amLODIPine Besylate 5 MG Oral Tablet (Norvasc)Indication s:HTN, goal below 140/90 Take 1 Tablet by mouth in the morning. 90 Tablet 1 02/12/2023 Active Levothyroxine Sodium 100 MCG Oral Tablet (Levoxyl)Indication s:Acquired hypothyroidism Take 1 Tablet by mouth in the morning. (at least 30 min prior to breakfast or other meds). 90 Tablet 1 02/12/2023 Active Breo Ellipta 200-25 MCG/ACT Inhalation Aerosol Powder Breath Activated (fluticasone furoate-vilanterol) Indications:Severe persistent asthma dependent on systemic steroids INHALE ONE PUFF BY MOUTH IN THE MORNING 180 Each 1 02/19/2023 Active Omeprazole 20 MG Oral Capsule Delayed Release (PriLOSEC) TAKE 1 CAPSULE BY MOUTH TWICE DAILY 30 MINUTES BEFORE A MEAL 180 Capsule 1 02/20/2023 Active Arnuity Ellipta 100 MCG/ACT Inhalation Aerosol Powder Breath Activated (fluticasone Furoate)Indications :Eosinophilic asthma inhale 1 puff by mouth once daily - rinse mouth after use 90 Each 2 05/03/2023 Active Benzonatate 200 MG Oral Capsule 0 05/14/2023 Active Montelukast Sodium 10 MG Oral Tablet (Singulair)Indicati ons:Eosinophilic asthma Take 1 Tablet by mouth in the morning. 90 Tablet 2 06/06/2023 Active glipiZIDE 5 MG Oral Tablet (Glucotrol) TAKE 1 TABLET BY MOUTH TWICE DAILY 30 minutes before a meal 180 Tablet 1 06/24/2023 Active Azithromycin 250 MG Oral Tablet (Zithromax Z-Duran) Take two tablets by mouth on first day, then 1 tablet daily until gone 6 Tablet 0 06/25/2023 Active predniSONE 20 MG Oral Tablet (Deltasone) Take 4 tabs daily for 2 days, 3 tabs daily for 2 days, 2 tabs daily for 2 days, 1 tab daily for 2 days 20 Tablet 0 06/25/2023 Active Mometasone Furoate 50 MCG/ACT Nasal SuspensionIndicatio ns:Chronic rhinitis administer 2 sprays into each nostril daily 51 g 0 07/04/2023 Active OneTouch Delica Lancets 33GIndications:Type 2 diabetes mellitus with hemoglobin A1c goal of less than 7.5% ([facility]) USE DIRECTED TWICE DAILY. USE UP TO FOUR TIMES A DAY DIRECTED. 100 Each 10 07/11/2023 Active Sodium Chloride 3 % Inhalation Nebulization Solution Inhale 4ml via nebulizer in the morning and 4ml before bedtime 240 mL 1 07/22/2023 Active Sodium Chloride 3 % Inhalation Nebulization Solution Inhale 4ml via nebulizer in the morning and 4ml before bedtime 240 mL 0 06/17/2023 3 Discontinu ed(Refill) Hospital, Clinic, or Other Facility Administered Medication Ordered Dose Route Frequency Start Date End Date Status omalizumab (XOLAIR) inj 150 mgIndications:Poorly controlled severe persistent asthma with acute exacerbation 150 mg SC [id number] 05/13/2020 Active omalizumab (XOLAIR) inj 150 mgIndications:Poorly controlled severe persistent asthma with acute exacerbation 150 mg SC [id number] 05/13/2020 Active documented as of this encounter (statuses as of 07/22/2023) Active Problems Problem Noted Date Diagnosed Date 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 Gastroesophageal reflux disease without esophagi tis 07/10/2022 Type 2 diabetes mellitus with diabetic nephropat hy 07/10/2022 Obesity, Class I, BMI 30.0-34.9 (see actual BMI) 02/05/2022 Chronic heart failure with preserved ejection fr action 02/05/2022 Restrictive lung disease 12/21/2020 Severe persistent asthma dependent on systemic s teroids 09/21/2020 Mild aortic stenosis 05/31/2020 Migraine variant 02/17/2020 PHILLIP (obstructive sleep apnea) 05/18/2019 Periodic limb movement disorder (PLMD) 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 Dyslipidemia 04/08/2009 Acquired hypothyroidism 09/10/2006 documented as of this encounter (statuses as of 07/22/2023) Resolved Problems Problem Noted Date Diagnosed Date Resolved Date Bronchiectasis with acute exacerbation 10/12/2022 11/21/2022 Personal history of Pseudomonas pneumonia 05/09/2022 11/21/2022 Chronic rhinitis 12/21/2020 02/05/2022 House dust mite allergy 12/21/202010/28 FREDERICK (dyspnea on exertion) 05/09/2020 Diastolic dysfunction 05/09/20202022 Nocturnal hypoxemia 05/18/2019 08/19/19 20 Severe asthma with exacerbation 05/18/2019 05/31/2020 Acute bronchitis, antibiotics not indicated 08/27/2011 10/12/2011 Acute bronchitis, complicated 06/18/2011 10/12/2011 Acute sinusitis 04/12/2011 10/12/2011 Acute bronchitis, complicated 09/26/2010 10/04/2010 Elevated prostate specific antigen (PSA) 03/04/2007 11/10/2013 ADVANCE DIRECTIVE INFORMATION 02/26/2006 06/05/2018 Overview: Information given at previous appt. ABN BLOOD CHEMISTRY NEC 10/16/2004 0801/2007 Esophageal reflux 12/27/2000 03/04/2007 HELICOBACTER PYLORI (H. 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 Esophagitis 10/06/2009 Overview: ICD-10 update of inactive term Asthma, severe persistent, poorly-controlled 12/21/2020 documented as of this encounter (statuses as of 07/22/2023) Immunizations Name Administration Dates Next Due COVID-19 mRNA, LNP-s, No Pre serve, 2-Dose Series (Moderna) 11/08/2020,10/08/2020 Pneumococcal Conjugate Vacc, 13 Valent (Prevnar) 08/17/2014 Pneumococcal Polysaccharide PPV23 (Pneumovax) 10/12/2011,04/08/2009(Deferred: Patient Refused) RSV Vac., Bivalent, Perfusio n F, Pf,0.5 Ml (Abrysvo) 05/24/2023 Season Influenza, Quad, PF, Adjuvanted, 65+ Yrs, IM (FLUAD) 05/09/2020 Seasonal Influenza, PF, 6 M & above, IM , (FluLaval or Fluzone) 05/06/2019,05/19/2018,06/06/2017 Seasonal Influenza, Quadriva lent Hd (Fluzone Hd) 05/24/2023,06/02/2022 Seasonal Influenza, Quadriva lent, No Preserve, IM 05/09/2016,06/02/2015 Seasonal Influenza, Split, I IV3, With Preserve, Inj 05/28/2014,05/16/2013,05/17/2012,01/2011,05/12/2010,06/15/2009,04/29/20 06 TDAP (age 10 and older)(Boostrix) 02/06/2019 02/06/2029 TDAP (age 11 and older)(Adacel) 03/04/2007 Varicella Zoster Vaccine (Adult) 04/18/2012 documented as of this encounter Social History Tobacco Use Types Packs/Day Years Used Date Smoking Tobacco: Never Smokeless Tobacco: Never Alcohol Use Standard Drinks/Week Comments No 0 (1 standard drink = 0.6 oz pur e alcohol) PHQ-2 Answer Date Recorded PHQ-2 Score 0 04/15/2020 Hunger Vital Sign Answer Date Recorded Worried About Running Out of Food in the Last Ye ar Never true 07/14/2019 Ran Out of Food in the Last Year Never true 07/14/2019 Sex and Gender Information Value Date Recorded Sex Assigned at Male 04/15/2020 8:42 AM EDT Gender Identity Male 04/15/2020 8:42 AM EDT Sexual Orientation Straight 04/15/2020 8: 42 AM EDT Job Start Date Occupation Industry Not on file Not on file Not on file documented as of this encounter Miscellaneous Notes * Telephone Encounter - Shana Hamlin MD - 07/22/2023 3:18 PM ESTSigned Prescriptions: Disp Refills Sodium Chloride 3 % Inhalation Nebulizatio*240 mL 1 Sig: Inhale 4ml via nebulizer in the morning and 4ml before bedtime Authorizing Provider: SHANA HAMLIN Refused Prescriptions: Disp Refills OneTouch Delica Lancets 33G 100 Ea*10 Sig: USE DIRECTED TWICE DAILY. USE UP TO FOUR TIMES A DAY DIRECTED. Refused By: KRISTOPHER SAVAGE Reason for Refusal: Too soon * Telephone Encounter - Kristopher Savage [facility] - 07/19/2023 5:35 PM ESTPending Prescriptions: Disp Refills Sodium Chloride 3 % Inhalation Nebulizatio*240 mL Sig: Inhale 4ml via nebulizer in the morning and 4ml before bedtime Refused Prescriptions: Disp Refills OneTouch Delica Lancets 33G 100 Ea*10 Sig: USE DIRECTED TWICE DAILY. USE UP TO FOUR TIMES A DAY DIRECTED. Refused By: KRISTOPHER LIGHT Reason for Refusal: Too soon * Telephone Encounter - Kristopher Savage, [facility] - 07/19/2023 5:30 PM EST [facility] is currently not authorized to approve refills for the pended medication(s) per refill protocol. Please approve if appropriate. Thank you, Kristopher Savage, PharmD Clinical Pharmacist [facility] ([facility]) (formerly [facility]) [phone] 07/19/2023, 5:34 PM Pending Prescriptions: Disp Refills Sodium Chloride 3 % Inhalation Nebulizati*240 mL Sig: Inhale 4ml via nebulizer in the morning and 4ml before bedtime Refused Prescriptions: Disp Refills OneTouch Delica Lancets 33G 100 Ea*10 Sig: USE DIRECTED TWICE DAILY. USE UP TO FOUR TIMES A DAY DIRECTED. Refused By: KRISTOPHER SAVAGE Reason for Refusal: Too soon Last Visit: 05/24/2023 (in office), Visit date not found (telemedicine) Next Visit: 11/25/2023 If no future appointments scheduled, and last appointment is greater than a year ago, please schedule patient for a follow-up appointment Last date the medication was ordered: 06/18/23 Pharmacy: [id number] Is this request for a controlled substance? No Urine Drug Screen:No results found. However, due to the size of the patient record, not all encounters were searched. Please check Results Review for a complete set of results. Patient Phone Numbers Labs: Lab Results Component Value Date/Time CREAT 0.8 05/29/2022 10:25 AM CREAT 1.0 12/14/2019 11:27 AM POTASSIUM 3.3 (L) 05/29/2022 10:25 AM POTASSIUM 3.9 12/14/2019 11:27 AM POTASSIUM 4.0 10/21/1996 04:30 PM TSH 1.94 05/24/2023 09:33 AM TSH 0.88 05/06/2019 09:57 AM TSH 0.45 10/21/1996 04:30 PM LDLCALC 44 01/21/2018 12:00 AM LDLCALC 69 11/07/2013 08:37 AM LDLDIRECT 75 05/29/2022 10:25 AM LDLDIRECT 65 05/06/2019 09:57 AM ALT 21 05/29/2022 10:25 AM ALT 49 07/05/2016 12:00 AM ALT 48 06/09/2015 08:21 AM HGBA1C 8.9 (H) 05/24/2023 09:33 AM HGBA1C 6.3 (H) 12/14/2019 11:27 AM documented in this encounter Plan of Treatment Upcoming Encounters Date Type Department Care Team (Late st Contact Info) Description 11/25/2023 10:20 AM EDT [facility] [address] [facility] [place] [phone] Shana Hamlin MD [address] [place] [phone] Scheduled Procedures Name Priority Associated Diagnoses Date/Ti me COLONOSCOPY FLEXIBLE PROXIMAL DIAGNOSTIC Recall History of colon polyps Health Maintenance Due Date Last Done Comments Hepatitis C Screening 1963 Hepatitis B (1 of 3 - Risk 3-dose series) 2006 Zoster Vaccines (1 of 2) 06/13/2012 04/18/2012 COVID-19 Vaccine (3 - Moderna risk series) 12/06/2020 11/08/2020, 10/08/2020 Depression Screening 04/15/2021 04/15/2020 Diabetic Eye Exam 06/21/2021 06/21/2020, , 10/21/2015, Additional history exists COLONOSCOPY-EVERY 5 YRS AGES 18-100 02/19/2022 02/19/2017, 12/15/2013, 12/15/2013 GFR 05/29/2023 05/29/2022, 02/27, 12/14/2019, Additional history exists Diabetic Foot Exam 07/10/2023 07/10/2022, 0 04/15/2020, 03/23/2019, Additional history exists Albumin/Creatinine Ratio 07/13/2023 022, 01/21/2018, 07/05/2016, Additional history exists HbA1c 11/23/2023 05/24/2023, 04/2 12/2022, 07/13/2022, Additional history exists TSH 05/24/2024 05/24/2023, 1107/2021, 03/20/2021, Additional history exists DTaP,Tdap,and Td Vaccines (3 - Td or Tdap) 02/06/2029 02/06/2019, 03/04/2007 Pneumococcal Vaccine: 65+ Years Completed 08/17/2014, 10/12/2011 Influenza Vaccine (FLU shot) Completed , 06/02/2022, 05/09/2020, Additional history exists GARDASIL-HPV IMMUNIZATION SERIES Aged Out No longer eligible based on patient's age to complete this topic MENINGOCOCCAL (MENACTRA/MENVEO) Aged Out No longer eligible based on patient's age to complete this topic documented as of this encounter Medical Devices Not on filedocumented as of this encounter Visit Diagnoses Diagnosis Type 2 diabetes mellitus with hemoglobin A1c goal of less than 7.5% (HCC) documented in this encounter Care Teams Risk Control Representative Relationship Specialty Start Date End Date Shana Hamlin MD [address] [place] [id number] PCP - General Family Medicine 08/19/19 documented as of this encounter
--- OUTSIDE RECORDS SUMMARY | 2023-07-25 04:08 | External Medical Summary | Summary of Care ---
Author Name Unknown Organization [facility] Address [address] [facility] [address] Phone [phone] Care Team Providers Care French Binding Folder Name Role Phone Enrico Mccauley MD Primary Care Provider [phone] Reason for Visit * Reason Comments Acute The pt stated he has been getting lightheaded with dizziness for approx a few days. Encounter Details Date Type Department Care Team Description 05/13/2023 Office Visit General Internal Medicine [facility] [address] [facility] [place] [address] Hoa Tom MD [address] [facility] [address] Dizziness and giddiness*; Other abnormalities of gait and mobility; Balance problem; HTN, goal below 130/80; Type 2 diabetes mellitus with hemoglobin A1c goal of less than 8.0% ([facility]); Severe persistent asthma dependent on systemic steroids Allergies Active Allergy Reactions Severity Noted Date Comments Gianluca Inhibitors Cough 06/12/2016 Cat Dander 03/31/2020 Ragweed 02/16/2020 Per patient's he is allergic to all weeds, trees, grasses documented as of this encounter (statuses as of 05/13/2023) Medications Medication Sig Dispensed Refills Start Date End Date Status ASPIRIN 81 MG PO TABS one tablet daily 0 Active Blood Glucose Monitoring Suppl (My 1% ULTRA SYSTEM) W/DEVICE KITIndications:Type 2 diabetes mellitus with hemoglobin A1c goal of less than 7.5% (HCC) Use as directed 2 times a day. E11.9 1 Kit 0 07/27/2016 Active FELICIA SHAH LCJUNI 33G MISCIndications:Type 2 diabetes mellitus with hemoglobin A1c goal of less than 7.5% (HCC) USE DIRECTED TWICE DAILY. USE UP TO FOUR TIMES A DAY DIRECTED. 100 Each 10 09/26/2017 Active Azelastine HCl 0.1 % nasal spray Administer 1 Allyn into nostril 2 times a day. 30 mL 5 04/13/2019 Active Tadalafil (CIALIS) 20 MG TabletIndications:Er ectile dysfunction, unspecified erectile dysfunction type Take 1 [...] 15 minutes 25 Tab 11 01/12/2021 Active Mometasone Furoate 50 MCG/ACT Nasal SuspensionIndication s:Chronic rhinitis Administer into each nostril 2 Sprays daily . 51 g 11 04/12/2022 Active SUMAtriptan Succinate 25 MG Oral Tablet (Imitrex)Indications :Migraine variant take 2 tablets by mouth at onset of migraine, and 1 tablet every 2 hours if needed; not more than 5 tablets in 24 hours 6 Tablet 11 04/16/2022 Active Vitamin B-12 1000 MCG Oral Tablet TAKE 1 TABLET BY MOUTH ONCE DAILY 100 Tablet 2 06/07/2022 Active glipiZIDE 5 MG Oral Tablet (Glucotrol) TAKE 1 TABLET BY MOUTH TWICE DAILY. TAKE 30 MINUTES BEFORE A MEAL 180 Tablet 3 06/28/2022 Active Atorvastatin Calcium 20 MG Oral Tablet (Lipitor)Indications :Dyslipidemia TAKE 1 TABLET BY MOUTH ONCE DAILY 90 Tablet 3 07/22/2022 Active Losartan Potassium 25 MG Oral Tablet (Cozaar) Take 1 Tablet by mouth in the morning. 90 Tablet 3 07/31/2022 Active Xolair 150 MG/ML Subcutaneous Solution Prefilled Syringe (Omalizumab)Indicati ons:Eosinophilic asthma INJECT 2 SYRINGES UNDER THE SKIN EVERY 4 WEEKS 2 mL 6 08/03/2022 Active predniSONE 5 MG Oral Tablet (Deltasone) Take 1 Tablet by mouth in the morning. 90 Tablet 3 08/15/2022 Active Doxazosin Mesylate 2 MG Oral Tablet (Cardura)Indications :Urinary frequency TAKE 1 TABLET BY MOUTH EVERY EVENING 90 Tablet 3 08/21/2022 Active Montelukast Sodium 10 MG Oral Tablet (Singulair)Indicatio ns:Eosinophilic asthma Take 1 Tablet by mouth in the morning. 90 Tablet 2 09/06/2022 Active Benzonatate 100 MG Oral Capsule (Tessalon Perles) Take 1 Capsule by mouth 3 times a day as needed for Cough. 30 Capsule 0 09/28/2022 Active [facility] Glucose Meter Test Strips In Vitro Strip (Glucose Blood)Indications:Ty pe 2 diabetes mellitus with hemoglobin A1c goal of less than 8.0% ([facility]) Use up to four times daily to check blood glucose 200 Strip 3 09/28/2022 Active Spiriva HandiHaler 18 MCG Inhalation Capsule (tiotropium bromide)Indications: Severe persistent asthma dependent on systemic steroids INHALE ONE CAPSULE VIA HANDIHALER ONE TIME DAILY , DO NOT SWALLOW 30 Capsule 11 10/10/2022 Active Albuterol Sulfate HFA 108 (90 Base) MCG/ACT Inhalation Aerosol SolutionIndications: Complicated acute bronchitis Inhale 2 Puffs by mouth every 4 hours as needed for Wheezing. 18 g 1 10/12/2022 Active Ipratropium-Albutero l 0.5-2.5 (3) MG/3ML Inhalation Solution (Duoneb)Indications: Moderate persistent asthma with acute exacerbation INHALE THE CONTENTS OF ONE VIAL (3 ML) VIA NEBULIZER FOUR TIMES A DAY NEEDED. 360 mL 5 10/28/2022 Active Zoster Vac Recomb Adjuvanted 50 MCG/0.5ML Intramuscular Suspension Reconstituted (Shingrix)Indication s:Need for shingles vaccine Inject 0.5 mL into a large muscle now and repeat dose in 60 to 180 days 1 Each 1 11/21/2022 Active amLODIPine Besylate 5 MG Oral Tablet (Norvasc)Indications :HTN, goal below 140/90 Take 1 Tablet by mouth in the morning. 90 Tablet 1 02/12/2023 Active Levothyroxine Sodium 100 MCG Oral Tablet (Levoxyl)Indications :Acquired hypothyroidism Take 1 Tablet by mouth in the morning. (at least 30 min prior to breakfast or other meds). 90 Tablet 1 02/12/2023 Active Breo Ellipta 200-25 MCG/ACT Inhalation Aerosol Powder Breath Activated (fluticasone furoate-vilanterol)I ndications:Severe persistent asthma dependent on systemic steroids INHALE ONE PUFF BY MOUTH IN THE MORNING 180 Each 1 02/19/2023 Active Omeprazole 20 MG Oral Capsule Delayed Release (PriLOSEC) TAKE 1 CAPSULE BY MOUTH TWICE DAILY 30 MINUTES BEFORE A MEAL 180 Capsule 1 02/20/2023 Active Arnuity Ellipta 100 MCG/ACT Inhalation Aerosol Powder Breath Activated (fluticasone Furoate)Indications: Eosinophilic asthma inhale 1 puff by mouth once daily - rinse mouth after use 90 Each 2 05/03/2023 Active Sodium Chloride 3 % Inhalation Nebulization Solution INHALE 4 ML VIA NEBULIZER IN THE MORNING AND 4 ML BEFORE BEDTIME 240 mL 0 05/06/2023 Active Hospital, Clinic, or Other Facility Administered Medication Ordered Dose Route Frequency Start Date End Date Status omalizumab (XOLAIR) inj 150 mgIndications:Poorly controlled severe persistent asthma with acute exacerbation 150 mg SC [id number] 05/13/2020 Active omalizumab (XOLAIR) inj 150 mgIndications:Poorly controlled severe persistent asthma with acute exacerbation 150 mg SC [id number] 05/13/2020 Active documented as of this encounter (statuses as of 05/13/2023) Active Problems Problem Noted Date 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 Gastroesophageal reflux disease without esophagitis 07/10/2022 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 07/10/2022 Obesity, Class I, BMI 30.0-34.9 (see act ual BMI) 02/05/2022 Chronic heart failure with preserved eje ction fraction 02/05/2022 Restrictive lung disease 12/21/2020 Severe persistent asthma dependent on sy stemic steroids 09/21/2020 Mild aortic stenosis 05/31/2020 Migraine variant 02/17/2020 PHILLIP (obstructive sleep apnea) 05/18/2019 Periodic limb movement disorder (PLMD) 1 BPH with obstruction/lower urinary tract symptoms 08/17/2014 Type 2 diabetes mellitus with hemoglobin A1c goal of less than 8.0% 10/22/2011 Overview: ICD-10 update of inactive term HTN, goal below 130/80 06/15/2009 Overview: Modified per HTN protocol #16. Dyslipidemia 04/08/2009 Acquired hypothyroidism 09/10/2006 documented as of this encounter (statuses as of 05/13/2023) Resolved Problems Problem Noted Date Resolved Date Bronchiectasis with acute exacerbation 3 11/21/2022 Personal history of Pseudomonas pneumonia 202111/21/2022 Chronic rhinitis 12/21/2020 02/05/2022 House dust mite allergy 12/21/2020 11/22/19 23 FREDERICK (dyspnea on exertion) 05/09/20202019 Diastolic dysfunction 05/09/2020 11/21/2022 Nocturnal hypoxemia 05/18/2019 08/19/2019 Severe asthma with exacerbation 05/18/2019 05/31/2020 Acute bronchitis, antibiotics not indicated 07/3110/12/2011 Acute bronchitis, complicated 06/18/2011 Acute sinusitis 04/12/2011 10/12/2011 Acute bronchitis, complicated 09/26/2010 Elevated prostate specific antigen (PSA) 007 11/10/2013 ADVANCE DIRECTIVE INFORMATION 02/26/2006 Overview: Information given at previous appt. ABN BLOOD CHEMISTRY NEC 10/16/2004 03/04/20 07 Esophageal reflux 12/27/2000 03/04/2007 HELICOBACTER PYLORI (H. 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 Esophagitis 10/06/2009 Overview: ICD-10 update of inactive term Asthma, severe persistent, poorly-controlled 12/21/2020 documented as of this encounter (statuses as of 05/13/2023) Immunizations Name Administration Dates Next Due COVID-19 mRNA, LNP-s, No Pre serve, 2-Dose Series (Moderna) 11/08/2020,10/08/2020 Pneumococcal Conjugate Vacc, 13 Valent (Prevnar) 08/17/2014 Pneumococcal Polysaccharide PPV23 (Pneumovax) 10/12/2011,04/08/2009(Deferred: Patient Refused) SEASONAL INFLUENZA, PF, 6 M & Above, IM , (FLULAVAL or FLUZONE) 05/06/2019,05/19/2018,06/06/2017 Season Influenza, Quad, PF, Adjuvanted, 65+ Yrs, IM (FLUAD) 05/09/2020 Seasonal Influenza, Quadriva lent Hd (Fluzone Hd) 06/02/2022 Seasonal Influenza, Quadriva lent, No Preserve, IM [...] drink = 0.6 oz pur e alcohol) Food Insecurity Answer Date Recorded Within the past 12 months, y ou worried that your food would run out before you got money to buy more. Never true 07/14/2019 Within the past 12 months, t he food you bought just didn't last and you didn't have money to get more. Never true 07/14/2019 Sex Assigned at Date Recorded Male 04/15/2020 8:42 AM E DT Job Start Date Occupation Industry Not on file Not on file Not on file documented as of this encounter Last Filed Vital Signs Vital Sign Reading Time Taken Comments Blood Pressure 140/84 05/13/2023 1:45 PM EDT Pulse 101 05/13/2023 1:45 PM EDT Temperature 36.3 C (97.4 F) 05/13/2023 1:45 PM ED T Respiratory Rate - - Oxygen Saturation 94% 05/13/2023 1:45 PM EDT Inhaled Oxygen Concentration - - Weight 78.5 kg (173 lb 1.6 oz) 05/13/2023 1:45 P M EDT Height - - Body Mass Index 31.66 11/21/2022 8:56 AM EDT documented in this encounter Progress Notes * Hoa Tom MD - 05/13/2023 2:11 PM EDT SUBJECTIVE: Alcides Sebastian is a 77 year old male. Chief Complaint Patient presents with Acute The pt stated he has been getting lightheaded with dizziness for approx a few days. HPI: Patient presents today accompanied by his with symptoms of dizziness for the last 2 days.Denies any vertigo, no nausea or vomiting or headache. No blurry vision double vision. She has noticed a little bit slower than normal, wears a brace on his left calf, states he gets a numbness in his leg otherwise. No chest pain or palpitations. No URI symptoms except for a cough, has severe persistent asthma, no wheezing or shortness of breath No recent change in medications Problem list and medications reviewed, has appointment with PCP on 05/24 BP Readings from Last 5 Encounters: 05/13/23 140/84 03/25/23 128/74 11/21/22 124/72 10/24/22 136/70 10/12/22 140/80 Wt Readings from Last 5 Encounters: 05/13/23 78.5 kg (173 lb 1.6 oz) 03/25/23 78.9 kg (174 lb) 11/21/22 78.9 kg (174 lb) 10/12/22 78.5 kg (173 lb) 07/13/22 79.4 kg (175 lb) Patient Active Problem List Diagnosis Code Acquired hypothyroidism E03.9 Dyslipidemia E78.5 HTN, goal below 130/80 I10 Type 2 diabetes mellitus with hemoglobin A1c goal of less than 8.0% (HCC) 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, N13.8 PHILLIP (obstructive sleep apnea) G47.33 Periodic limb movement disorder (PLMD) G47.61 Migraine variant G43.809 Mild aortic stenosis I35.0 Severe persistent asthma dependent on systemic steroids J45.50, Z79.52 Restrictive lung disease J98.4 Obesity, Class I, BMI 30.0-34.9 (see actual BMI) E66.9 Chronic heart failure with preserved ejection fraction (HCC) I50.32 Gastroesophageal reflux disease without esophagitis K21.9 Type 2 diabetes mellitus with diabetic nephropathy (HCC) E11.21 Neuromuscular respiratory weakness (HCC) G70.9, J99 Current Outpatient Medications Medication Sig Dispense Refill ASPIRIN 81 MG PO TABS one tablet daily Blood Glucose Monitoring Suppl ([employer] SYSTEM) W/DEVICE KIT Use as directed 2 times a day. E11.9 1 Kit 0 UlmartTOUCH DELICA LANCETS 33G MISC USE DIRECTED TWICE DAILY. USE UP TO FOUR TIMES A DAY DIRECTED. 100 Each 10 Azelastine HCl 0.1 % nasal spray Administer 1 Allyn into nostril 2 times a day. 30 mL 5 Tadalafil (CIALIS) 20 MG Tablet Take 1 Tab by mouth daily as needed for Erectile Dysfunction. Priorto intercourse, no more than 1 dose in 24 hours. 24 Tab 3 cetirizine (ZYRTEC) 10 MG Tablet Take 1 Tab by mouth daily. 90 Tab 3 Nitroglycerin 0.4 MG Sublingual Tablet Sublingual (Nitrostat) Place 1 Tab under the tongue every 5 minutes as needed for Pain, Chest. up to 3 doses in 15 minutes 25 Tab 11 Mometasone Furoate 50 MCG/ACT Nasal Suspension Administer into each nostril 2 Sprays daily . 51 g 11 SUMAtriptan Succinate 25 MG Oral Tablet (Imitrex) take 2 tablets by mouth at onset of migraine, and1 tablet every 2 hours if needed; not more than 5 tablets in 24 hours 6 Tablet 11 Vitamin B-12 1000 MCG Oral Tablet TAKE 1 TABLET BY MOUTH ONCE DAILY 100 Tablet 2 glipiZIDE 5 MG Oral Tablet (Glucotrol) TAKE 1 TABLET BY MOUTH TWICE DAILY. TAKE 30 MINUTES BEFORE AMEAL 180 Tablet 3 Atorvastatin Calcium 20 MG Oral Tablet (Lipitor) TAKE 1 TABLET BY MOUTH ONCE DAILY 90 Tablet 3 Losartan Potassium 25 MG Oral Tablet (Cozaar) Take 1 Tablet by mouth in the morning. 90 Tablet 3 Xolair 150 MG/ML Subcutaneous Solution Prefilled Syringe (Omalizumab) INJECT 2 SYRINGES UNDER THE SKIN EVERY 4 WEEKS 2 mL 6 predniSONE 5 MG Oral Tablet (Deltasone) Take 1 Tablet by mouth in the morning. 90 Tablet 3 Doxazosin Mesylate 2 MG Oral Tablet (Cardura) TAKE 1 TABLET BY MOUTH EVERY EVENING 90 Tablet 3 Montelukast Sodium 10 MG Oral Tablet (Singulair) Take 1 Tablet by mouth in the morning. 90 Tablet 2 Benzonatate 100 MG Oral Capsule (Tessalon Perles) Take 1 Capsule by mouth 3 times a day as needed for Cough. 30 Capsule 0 [facility] Glucose Meter Test Strips In Vitro Strip (Glucose Blood) Use up to four times daily to check blood glucose 200 Strip 3 Spiriva HandiHaler 18 MCG Inhalation Capsule (tiotropium bromide) INHALE ONE CAPSULE VIA HANDIHALERONE TIME DAILY , DO NOT SWALLOW 30 Capsule 11 Albuterol Sulfate HFA 108 (90 Base) MCG/ACT Inhalation Aerosol Solution Inhale 2 Puffs by mouth every 4 hours as needed for Wheezing. 18 g 1 Ipratropium-Albuterol 0.5-2.5 (3) MG/3ML Inhalation Solution (Duoneb) INHALE THE CONTENTS OF ONE VIAL (3 ML) VIA NEBULIZER FOUR TIMES A DAY NEEDED. 360 mL 5 Zoster Vac Recomb Adjuvanted 50 MCG/0.5ML Intramuscular Suspension Reconstituted (Shingrix) Inject 0.5 mL into a large muscle now and repeat dose in 60 to 180 days 1 Each 1 amLODIPine Besylate 5 MG Oral Tablet (Norvasc) Take 1 Tablet by mouth in the morning. 90 Tablet 1 Levothyroxine Sodium 100 MCG Oral Tablet (Levoxyl) Take 1 Tablet by mouth in the morning. (at least30 min prior to breakfast or other meds). 90 Tablet 1 Breo Ellipta 200-25 MCG/ACT Inhalation Aerosol Powder Breath Activated (fluticasone furoate-vilanterol) INHALE ONE PUFF BY MOUTH IN THE MORNING 180 Each 1 Omeprazole 20 MG Oral Capsule Delayed Release (PriLOSEC) TAKE 1 CAPSULE BY MOUTH TWICE DAILY 30 MINUTES BEFORE A MEAL 180 Capsule 1 Arnuity Ellipta 100 MCG/ACT Inhalation Aerosol Powder Breath Activated (fluticasone Furoate) inhale1 puff by mouth once daily - rinse mouth after use 90 Each 2 Sodium Chloride 3 % Inhalation Nebulization Solution INHALE 4 ML VIA NEBULIZER IN THE MORNING AND 4ML BEFORE BEDTIME 240 mL 0 Current Facility-Administered Medications Medication Dose Route Frequency Provider Last Rate Last Admin omalizumab (XOLAIR) inj 150 mg 150 mg Subcutaneous Q4 Weeks Asmita Lana Rhed, SADDLE STITCHING MACHINE OPERATOR 150 mg at 03/25/23 1056 omalizumab (XOLAIR) inj 150 mg 150 mg Subcutaneous Q4 Weeks Asmita Lana Rhed, SADDLE STITCHING MACHINE OPERATOR 150 mg at 03/25/23 1055 Review of patient's allergies indicates: Allergen Reactions Gianluca Inhibitors Cough Cats [Cat Dander] Environmental [Ragweed] Per patient's he is allergic to all weeds, trees, grasses OBJECTIVE: BP 140/84 | Pulse 101 | Temp 36.3 C (97.4 F) | Wt 78.5 kg (173 lb 1.6 oz) | SpO2 94% | BMI 31.66 kg/m | BSA 1.85 m PHYSICAL EXAM: General: alert, healthy, no distress, well nourished and well developed Head: Normocephalic, atraumatic Eye Exam: PERRLA, EOMI, Conjunctiva are pink and non-injected, sclera clear no nystagmus but he is unable to hold his gaze Ears: External ears normal, Canal clear, Tm normal rt, left with hard cerumen Nose: no mucosal erythema, no mucosal edema, no purulent discharge Oropharynx: no exudate and no erythema Neck: supple, no bruits, no JVD, thyroid normal size, non-tender, without nodularity Heart: Regular rhythm and rate, HR 104bpm, 2/6 IVONNE base,no gallops Lungs: lungs clear to auscultation Abdomen: Soft, unable to lay flat Extremities: no edema, no clubbing, no cyanosis. Neuro Exam: alert & oriented x 3 with fluent speech, slow to answer, normal F-N test, slow dysdiadokinesis left , gait- abnormal -very cautious with sl drag left foot with cane ASSESSMENT/PLAN: Dizziness and giddiness (Primary) Other abnormalities of gait and mobility Balance problem R/o CVA HTN, goal below 130/80 Type 2 diabetes mellitus with hemoglobin A1c goal of less than 8.0% (HCC) Severe persistent asthma dependent on systemic steroids Discussed with patient need for further evaluation and treatment and she is agreeble to take him toER Follow-up: Return if symptoms worsen or fail to improve. | Check-out note: To ER (This note was completed using the dictation program Fluency Direct. As such, there may be misspellings, word substitutions, or other variations that should not change the essence of the clinical content of this encounter note. If there is need for further clarification, please direct questions to the provider listed above.) Patient and / caregiver verbalize understanding of above instructions and agrees with plan of care. Hoa oTm MD 05/13/2023 documented in this encounter Nursing Notes * Geronimo Easton LPN - 05/13/2023 1:45 PM EDT Chief Complaint Patient presents with Acute The pt stated he has been getting lightheaded with dizziness for approx a few days. documented in this encounter Plan of Treatment Upcoming Encounters Date Type Specialty Care Team Description 05/24/2023 Office Visit Family Medicine Enrico Mccauley MD [address] [place] [id number] Scheduled Procedures Name Priority Associated Diagnoses Date/Ti me COLONOSCOPY FLEXIBLE PROXIMAL DIAGNOSTIC Recall History of colon polyps Health Maintenance Due Date Last Done Comments Hepatitis C Screening 1963 Zoster Vaccines (1 of 2) 06/13/2012 04/18/2012 DIABETES-EYE EXAM 03/20/2019 03/20/2018, 10/21/2015 COVID-19 Vaccine (3 - Moderna risk series) 12/06/2020 11/08/2020, 10/08/2020 Depression Screening 04/15/2021 04/15/2020 COLONOSCOPY-EVERY 5 YRS AGES 18-100 02/19/2022 02/19/2017, 12/15/2013, 12/15/2013 Influenza Vaccine (FLU shot) (#1) 2023 06/02/2022, 05/09/2020, 05/06/2019, Additional history exists HbA1c 05/23/2023 11/21/2022, 06/28, 02/05/2022, Additional history exists GFR 05/29/2023 05/29/2022, 02/27, 12/14/2019, Additional history exists TSH 05/29/2023 05/29/2022, 02/27, 05/06/2019, Additional history exists Diabetic Foot Exam 07/10/2023 07/10/2022, 0 04/15/2020, 03/23/2019, Additional history exists Albumin/Creatinine Ratio 07/13/2023 022, 01/21/2018, 07/05/2016, Additional history exists DTaP,Tdap,and Td Vaccines (3 - Td or Tdap) 02/06/2029 02/06/2019, 03/04/2007 Pneumococcal Vaccine: 65+ Years Completed 08/17/2014, 10/12/2011 GARDASIL-HPV IMMUNIZATION SERIES Aged Out No longer eligible based on patient's age to complete this topic Hepatitis B Aged Out No longer eligi ble based on patient's age to complete this topic MENINGOCOCCAL (MENACTRA/MENVEO) Aged Out No longer eligible based on patient's age to complete this topic documented as of this encounter Medical Devices Not on filedocumented as of this encounter Visit Diagnoses Diagnosis Dizziness and giddiness- Primary Other abnormalities of gait and mobility Balance problem Other symptoms involving nervous and musculoskeletal systems HTN, goal below 130/80 Unspecified essential hypertension Type 2 diabetes mellitus with hemoglobin A1c goal of less than 8.0% (HCC) Severe persistent asthma dependent on systemic steroids documented in this encounter Care Teams French Binding Folder Relationship Specialty Start Date End Date Enrico Mccauley MD [address] [place] [id number] PCP - General Family Medicine 08/19/19 documented as of this encounter"
--- OUTSIDE RECORDS SUMMARY | 2023-07-25 04:08 | External Medical Summary | Summary of Care ---
Author Name Unknown Organization [facility] Address [address] [facility] [place] [address] Phone [phone] Care Team Providers Care It Consulting Director Name Role Phone Enrico Mccauley MD Primary Care Provider [phone] Reason for Visit * Reason Comments Medication Administration Encounter Details Date Type Department Care Team (Late st Contact Info) Description 05/24/2023 10:15 AM EDT Nurse Only Pulmonary Medicine, [facility] [address] [facility] [place] [address] Gw, Nurse Pulmonary [address] [facility] [place] [address] Medication Administration Allergies Active Allergy Reactions Criticality Noted Date Comments Gianluca Inhibitors Cough 06/12/2016 Cat Dander 03/31/2020 Ragweed 02/16/2020 Per patient's he is allergic to all weeds, trees, grasses documented as of this encounter (statuses as of 05/24/2023) Medications Medication Sig Dispensed Refills Start Date End Date Status ASPIRIN 81 MG PO TABS one tablet daily 0 Active Blood Glucose Monitoring Suppl (ONETOUCH ULTRA SYSTEM) W/DEVICE KITIndications:Type 2 diabetes mellitus with hemoglobin A1c goal of less than 7.5% ([facility]) Use as directed 2 times a day. E11.9 1 Kit 0 07/27/2016 Active ONETOUCH DELICA LANCETS 33G MISCIndications:Type 2 diabetes mellitus with hemoglobin A1c goal of less than 7.5% ([facility]) USE DIRECTED TWICE DAILY. USE UP TO FOUR TIMES A DAY DIRECTED. 100 Each 10 09/26/2017 Active Azelastine HCl 0.1 % nasal spray Administer 1 [place] into nostril 2 times a day. 30 [...] the morning. 90 Tablet 2 09/06/2022 Active [facility] Glucose Meter Test Strips In Vitro Strip (Glucose Blood)Indications:Ty pe 2 diabetes mellitus with hemoglobin A1c goal of less than 8.0% ([facility]) Use up to four times daily to [...] BY MOUTH IN THE MORNING 180 Each 02/19/2023 Active Omeprazole 20 MG Oral Capsule Delayed Release (PriLOSEC) TAKE 1 CAPSULE BY MOUTH TWICE DAILY 30 MINUTES BEFORE A MEAL 180 Capsule 02/20/2023 Active Arnuity Ellipta 100 MCG/ACT Inhalation Aerosol Powder Breath Activated (fluticasone Furoate)Indications: Eosinophilic asthma inhale 1 puff by mouth once daily - rinse mouth after use 90 Each 2 05/03/2023 Active Sodium Chloride 3 % Inhalation Nebulization Solution INHALE 4 ML VIA NEBULIZER IN THE MORNING AND 4 ML BEFORE BEDTIME 240 mL 0 05/06/2023 Active Benzonatate 200 MG Oral Capsule 0 05/14/2023 Active Hospital, Clinic, or Other Facility Administered Medication Ordered Dose Route Frequency Start Date End Date Status omalizumab (XOLAIR) inj 150 mgIndications:Poorly controlled severe persistent asthma with acute exacerbation 150 mg SC [id number] 05/13/2020 Active omalizumab (XOLAIR) inj 150 mgIndications:Poorly controlled severe persistent asthma with acute exacerbation 150 mg SC [id number] 05/13/2020 Active documented as of this encounter (statuses as of 05/24/2023) Active Problems Problem Noted Date Diagnosed Date [...] as of this encounter (statuses as of 05/24/2023) Resolved Problems Problem Noted Date Diagnosed Date Resolved Date Bronchiectasis with acute exacerbation 10/12/2022 11/21/2022 Personal history of Pseudomonas pneumonia 05/09/2022 11/21/2022 Chronic rhinitis 12/21/2020 02/05/2022 House dust mite allergy 12/21/2020 04/12/2022 FREDERICK (dyspnea on exertion) 05/09/2020 Diastolic dysfunction 05/09/20202022 Nocturnal hypoxemia 05/18/2019 08/19/19 20 Severe asthma with exacerbation 05/18/2019 05/31/2020 Acute bronchitis, antibiotics not indicated 08/27/2011 10/12/2011 Acute bronchitis, complicated 06/18/2011 10/12/2011 Acute sinusitis 04/12/2011 10/12/2011 Acute bronchitis, complicated 09/26/2010 10/04/2010 Elevated prostate specific antigen (PSA) 03/04/2007 11/10/2013 ADVANCE DIRECTIVE INFORMATION 02/26/2006 06/05/2018 Overview: Information given at previous appt. ABN BLOOD CHEMISTRY NEC 10/16/200401/2007 Esophageal reflux 12/27/2000 03/04/2007 HELICOBACTER PYLORI (H. 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 Esophagitis 10/06/2009 Overview: ICD-10 update of inactive term Asthma, severe persistent, poorly-controlled 12/21/2020 documented as of this encounter (statuses as of 05/24/2023) Immunizations Name Administration Dates Next Due COVID-19 mRNA, LNP-s, No Pre serve, 2-Dose Series (Moderna) 11/08/2020,10/08/2020 Pneumococcal Conjugate Vacc, 13 Valent (Prevnar) 08/17/2014 Pneumococcal Polysaccharide PPV23 (Pneumovax) 10/12/2011,04/08/2009(Deferred: Patient Refused) RSV Vac., Bivalent, Perfusio n F, Pf,0.5 Ml (Abrysvo) 05/24/2023 SEASONAL INFLUENZA, PF, 6 M & Above, [...] Sign Reading Time Taken Comments Blood Pressure 120/70 05/24/2023 9:50 AM EDT Pulse 79 05/24/2023 9:50 AM EDT Temperature - - Respiratory Rate - - Oxygen Saturation 92% 05/24/2023 9:50 AM EDT Inhaled Oxygen Concentration - - Weight - - Height - - Body Mass Index - - documented in this encounter Nursing Notes * Kavitha Dill, PRECISION INSTRUMENT MAKER - 05/24/2023 9:47 AM EDT injection has been given per order of physician Injection tolerated well by patient. injection given without complication or complaint documented in this encounter Plan of Treatment Upcoming Encounters Date Type Department Care Team (Late st Contact Info) Description 11/25/2023 10:20 AM EDT Office Visit [facility] [address] [place] [address] Enrico Mccauley MD [address] [place] [address] Scheduled Procedures Name Priority Associated Diagnoses Date/Ti [...] YRS AGES 18-100 02/19/2022 02/19/2017, 12/15/2013, 12/15/2013 HbA1c 05/23/2023 11/21/2022, 06/28, 02/05/2022, Additional history [...] Not on filedocumented as of this encounter Administered Medications Active Administered Medications - up to 3 most recent administrations Medication Order MAR Action Action Date Dose Rate Site omalizumab (XOLAIR) inj 150 mg 150 mg, Subcutaneous, [id number], First dose on Sat05/13/20 at 1315, Until Discontinued, TOTAL DOSE = 150 mg Given 05/24/2023 9:53 AM EDT 150 mg Deltoid Left Upper Given 03/25/2023 10:56 AM EDT 150 mg A rm Right Upper Given 02/08/2023 2:59 PM EDT 150 mg Ar m Right Upper omalizumab (XOLAIR) inj 150 mg 150 mg, Subcutaneous, [id number], First dose on Sat05/13/20 at 1315, Until Discontinued, TOTAL DOSE = 150 mg Given 05/24/2023 9:54 AM EDT 150 mg Delto id Right Upper Given 03/25/2023 10:55 AM EDT 150 mg A rm Left Upper Given 02/08/2023 2:58 PM EDT 150 mg Ar m Left Upper documented in this encounter Care Teams It Consulting Director Relationship Specialty Start Date End Date Enrico Mccauley MD [address] [address] PCP - General Family Medicine 08/19/19 documented as of this encounter
--- OUTSIDE RECORDS SUMMARY | 2023-07-25 04:08 | External Medical Summary | Summary of Care ---
Author Name Unknown Organization [facility] Address [address] [facility] [place] [address] Phone [phone] Care Team Providers Care Clinical Trial Specialist Name Role Phone Enrico Mccauley MD Primary Care Provider [phone] Reason for Visit * Reason Comments eRx-Medication Refill Encounter Details Date Type Department Care Team (Late st Contact Info) Description 07/04/2023 Refill Pulmonary Medicine, [facility] [address] [facility] [place] [address] Enrico Mccauley MD [address] [facility] [place] [address] Chronic rhinitis Allergies Active Allergy Reactions Criticality Noted Date Comments Gianluca Inhibitors Cough 06/12/2016 Cat Dander 03/31/2020 Ragweed 02/16/2020 Per patient's he is allergic to all weeds, trees, grasses documented as of this encounter (statuses as of 07/04/2023) Medications Medication Sig Dispensed Refills Start Date End Date Status ASPIRIN 81 MG PO TABS one tablet daily 0 Active Blood Glucose Monitoring Suppl (TeikonTOUCH ULTRA SYSTEM) W/DEVICE KITIndications:Type 2 diabetes mellitus with hemoglobin A1c goal of less than 7.5% ([facility]) Use as directed 2 times a day. E11.9 1 Kit 0 6 Active ONETOUCH DELICA LANCETS 33G MISCIndications:Typ e 2 diabetes mellitus with hemoglobin A1c goal of less than 7.5% ([facility]) USE DIRECTED TWICE DAILY. USE UP TO FOUR TIMES A DAY DIRECTED. 100 Each 10 8 Active Azelastine HCl 0.1 % nasal spray Administer 1 [place] into nostril 2 times a day. 30 mL 5 9 Active Tadalafil (CIALIS) 20 MG TabletIndications:E rectile dysfunction, unspecified erectile dysfunction type Take 1 Tab by mouth daily as needed for Erectile Dysfunction. Prior to intercourse, no more than 1 dose in 24 hours. 24 Tab 3 0 Active cetirizine (ZYRTEC) 10 MG Tablet Take 1 Tab by mouth daily. 90 Tab 3 0 Active Nitroglycerin 0.4 MG Sublingual Tablet Sublingual (Nitrostat) Place 1 Tab under the tongue every 5 minutes as needed for Pain, Chest. up to 3 doses in 15 minutes 25 Tab 11 1 Active SUMAtriptan Succinate 25 MG Oral Tablet (Imitrex)Indication s:Migraine variant take 2 tablets by mouth at onset of migraine, and 1 tablet every 2 hours if needed; not more than 5 tablets in 24 hours 6 Tablet 11 2 Active Vitamin B-12 1000 MCG Oral Tablet TAKE 1 TABLET BY MOUTH ONCE DAILY 100 Tablet 2 2 Active Atorvastatin Calcium 20 MG Oral Tablet (Lipitor)Indication s:Dyslipidemia TAKE 1 TABLET BY MOUTH ONCE DAILY 90 Tablet 3 2 Active Losartan Potassium 25 MG Oral Tablet (Cozaar) Take 1 Tablet by mouth in the morning. 90 Tablet 3 3 Active Xolair 150 MG/ML Subcutaneous Solution Prefilled Syringe (Omalizumab)Indicat ions:Eosinophilic asthma INJECT 2 SYRINGES UNDER THE SKIN EVERY 4 WEEKS 2 mL 6 3 Active predniSONE 5 MG Oral Tablet (Deltasone) Take 1 Tablet by mouth in the morning. 90 Tablet 3 3 Active Doxazosin Mesylate 2 MG Oral Tablet (Cardura)Indication s:Urinary frequency TAKE 1 TABLET BY MOUTH EVERY EVENING 90 Tablet 3 3 Active [facility] Glucose Meter Test Strips In Vitro Strip (Glucose Blood)Indications:T ype 2 diabetes mellitus with hemoglobin A1c goal of less than 8.0% ([facility]) Use up to four times daily to check blood glucose 200 Strip 3 3 Active Spiriva HandiHaler 18 MCG Inhalation Capsule (tiotropium bromide)Indications :Severe persistent asthma dependent on systemic steroids INHALE ONE CAPSULE VIA HANDIHALER ONE TIME DAILY , DO NOT SWALLOW 30 Capsule 11 3 Active Albuterol Sulfate HFA 108 (90 Base) MCG/ACT Inhalation Aerosol SolutionIndications :Complicated acute bronchitis Inhale 2 Puffs by mouth every 4 hours as needed for Wheezing. 18 g 1 3 Active Ipratropium-Albuter ol 0.5-2.5 (3) MG/3ML Inhalation Solution (Duoneb)Indications :Moderate persistent asthma with acute exacerbation INHALE THE CONTENTS OF ONE VIAL (3 ML) VIA NEBULIZER FOUR TIMES A DAY NEEDED. 360 mL 5 3 Active amLODIPine Besylate 5 MG Oral Tablet (Norvasc)Indication s:HTN, goal below 140/90 Take 1 Tablet by mouth in the morning. 90 Tablet 1 3 Active Levothyroxine Sodium 100 MCG Oral Tablet (Levoxyl)Indication s:Acquired hypothyroidism Take 1 Tablet by mouth in the morning. (at least 30 min prior to breakfast or other meds). 90 Tablet 1 3 Active Breo Ellipta 200-25 MCG/ACT Inhalation Aerosol Powder Breath Activated (fluticasone furoate-vilanterol) Indications:Severe persistent asthma dependent on systemic steroids INHALE ONE PUFF BY MOUTH IN THE MORNING 180 Each 1 3 Active Omeprazole 20 MG Oral Capsule Delayed Release (PriLOSEC) TAKE 1 CAPSULE BY MOUTH TWICE DAILY 30 MINUTES BEFORE A MEAL 180 Capsule 1 3 Active Arnuity Ellipta 100 MCG/ACT Inhalation Aerosol Powder Breath Activated (fluticasone Furoate)Indications :Eosinophilic asthma inhale 1 puff by mouth once daily - rinse mouth after use 90 Each 2 3 Active Benzonatate 200 MG Oral Capsule 0 3 Active Montelukast Sodium 10 MG Oral Tablet (Singulair)Indicati ons:Eosinophilic asthma Take 1 Tablet by mouth in the morning. 90 Tablet 2 3 Active Sodium Chloride 3 % Inhalation Nebulization Solution Inhale 4ml via nebulizer in the morning and 4ml before bedtime 240 mL 0 3 Active glipiZIDE 5 MG Oral Tablet (Glucotrol) TAKE 1 TABLET BY MOUTH TWICE DAILY 30 minutes before a meal 180 Tablet 1 3 Active Azithromycin 250 MG Oral Tablet (Zithromax Z-Duran) Take two tablets by mouth on first day, then 1 tablet daily until gone 6 Tablet 0 3 Active predniSONE 20 MG Oral Tablet (Deltasone) Take 4 tabs daily for 2 days, 3 tabs daily for 2 days, 2 tabs daily for 2 days, 1 tab daily for 2 days 20 Tablet 0 3 Active Mometasone Furoate 50 MCG/ACT Nasal SuspensionIndicatio ns:Chronic rhinitis administer 2 sprays into each nostril daily 51 g 0 3 Active Mometasone Furoate 50 MCG/ACT Nasal SuspensionIndicatio ns:Chronic rhinitis Administer into each nostril 2 Sprays daily . 51 g 11 2 07/04/20 23 Discontinued Hospital, Clinic, or Other Facility Administered Medication Ordered Dose Route Frequency Start Date End Date Status omalizumab (XOLAIR) inj 150 mgIndications:Poorly controlled severe persistent asthma with acute exacerbation 150 mg SC [id number] 05/13/2020 Active omalizumab (XOLAIR) inj 150 mgIndications:Poorly controlled severe persistent asthma with acute exacerbation 150 mg SC [id number] 05/13/2020 Active documented as of this encounter (statuses as of 07/04/2023) Active Problems Problem Noted Date Diagnosed Date [...] as of this encounter (statuses as of 07/04/2023) Resolved Problems Problem Noted Date Diagnosed Date Resolved Date Bronchiectasis with acute exacerbation 10/12/2022 11/21/2022 Personal history of Pseudomonas pneumonia 05/09/2022 11/21/2022 Chronic rhinitis 12/21/2020 02/05/2022 House dust mite allergy 12/21/202010/28 FREDERICK (dyspnea on exertion) 05/09/2020 Diastolic dysfunction 05/09/20202022 Nocturnal hypoxemia 05/18/2019 08/19/19 Severe asthma with exacerbation 05/18/2019 05/31/2020 Acute [...] as of this encounter (statuses as of 07/04/2023) Immunizations Name Administration Dates Next Due COVID-19 [...] encounter Miscellaneous Notes * Telephone Encounter - Shanae Nation MD - 07/04/2023 1:07 PM EST Signed Prescriptions: Disp Refills Mometasone Furoate 50 MCG/ACT Nasal Suspen*51 g 0 Sig: administer 2 sprays into each nostril daily Authorizing Provider: SHANAE NATION * Telephone Encounter - Kavitha Barbosa LPN - 07/04/2023 12:19 PM ESTPending Prescriptions: Disp Refills Mometasone Furoate 50 MCG/ACT Nasal Suspen*51 g 0 Sig: administer 2 sprays into each nostril daily documented in this encounter Plan of Treatment Upcoming Encounters Date Type Department Care Team (Late st Contact Info) Description 11/25/2023 10:20 AM EDT Office Visit Family [facility] [address] [place] [address] Enrico Mccauley MD [address] [place] [phone] Scheduled Procedures Name Priority Associated Diagnoses Date/Ti [...] 07/05/2016, Additional history exists HbA1c 11/23/2023 05/24/2023, 042 12/2022, 07/13/2022, Additional history exists TSH 05/24/2024 [...] as of this encounter Visit Diagnoses Diagnosis Chronic rhinitis documented in this encounter Care Teams Clinical Trial Specialist Relationship Specialty Start Date End Date Enrico Mccauley MD [address] [place] [address] PCP - General Family Medicine 08/19/19 documented as of this encounter
--- OUTSIDE RECORDS SUMMARY | 2023-07-25 04:08 | External Medical Summary | Summary of Care ---
Author Name Unknown Organization [facility] Address [address] [facility] [place] [address] Phone [phone] Care Team Providers Care Assistant Teacher Name Role Phone Enrico Mccauley MD Primary Care Provider [phone] Reason for Visit * Reason Comments Outpatient Testing Encounter Details Date Type Department Care Team (Late st Contact Info) Description 05/24/2023 9:40 AM EDT [facility], [facility] [address] GonsalezIsha mercer [facility] [address] Type 2 diabetes mellitus with hemoglobin A1c goal of less than 8.0% ([facility]); Acquired hypothyroidism Allergies Active Allergy Reactions Criticality Noted Date Comments Gianluca Inhibitors Cough 06/12/2016 Cat Dander 03/31/2020 Ragweed 02/16/2020 Per patient's he is allergic to all weeds, trees, grasses documented as of this encounter (statuses as of 05/24/2023) Medications Medication Sig Dispensed Refills Start Date End Date Status ASPIRIN 81 MG PO TABS one tablet daily 0 Active Blood Glucose Monitoring Suppl ([email or web address] ULTRA SYSTEM) W/DEVICE KITIndications:Type 2 diabetes mellitus with hemoglobin A1c goal of less than 7.5% (HCC) Use as directed 2 times a day. E11.9 1 Kit 0 07/27/2016 Active FELICIA SHAH LCJUNI 33G MISCIndications:Type 2 diabetes mellitus with hemoglobin A1c goal of less than 7.5% ([facility]) USE DIRECTED TWICE DAILY. USE UP TO FOUR TIMES A DAY DIRECTED. 100 Each 10 09/26/2017 Active Azelastine HCl 0.1 % nasal spray Administer 1 [place] into nostril 2 times a day. 30 [...] hemoglobin A1c goal of less than 8.0% ([facility]) Use up to four [...] asthma with acute exacerbation 150 mg SC [id number] 05/13/2020 Active omalizumab (XOLAIR) inj 150 mgIndications:Poorly controlled severe persistent asthma with acute exacerbation 150 mg SC [id number] 05/13/2020 Active documented as of this encounter [...] 12/21/2020 02/05/2022 House dust mite allergy 12/21/2020 0412/2022 FREDERICK (dyspnea on exertion) 05/09/2020 Diastolic dysfunction [...] on file documented as of this encounter Plan of Treatment Upcoming Encounters Date Type Department Care Team (Latest Contact Info) Description 05/24/2023 10:15 AM EDT Nurse Only Pulmonary Medicine, [facility] [address] [facility] [place] [address] Gw, Nurse Pulmonary 132 [facility] [place] [address] Medication Administration 11/25/2023 10:20 AM EDT Office Visit Family Practice [facility] [address] [place] [address] Enrico Mccauley MD [address] [place] [address] Pending Results Name Type Priority Associated Diagnoses Date /Time HEMOGLOBIN A1C Lab Routine Type 2 diabetes mellitus with hemoglobin A1c goal of less than 8.0% (HCC) 05/24/2023 9:33 AM EDT TSH WITH FREE T4 IF INDICATED Lab Routine Acquired hypothyroidism 05/24/2023 9:33 AM EDT Scheduled Procedures Name Priority Associated Diagnoses Date/Ti [...] A1c goal of less than 8.0% (HCC) Acquired hypothyroidism Unspecified hypothyroidism documented in this encounter Care Teams Assistant Teacher Relationship Specialty Start Date End Date Enrico Mccauley MD [address] [place] [address] PCP - General Family Medicine 08/19/19 documented as of this encounter
--- OUTSIDE RECORDS SUMMARY | 2023-07-25 04:08 | External Medical Summary | Summary of Care ---
Author Name Unknown Organization [facility] Address [address] [facility] [place] [address] Phone [phone] Care Team Providers Care Field Specialist Name Role Phone Shana Hamlin MD Primary Care Provider [phone] Reason for Visit * Reason Comments eRx-Medication Refill Encounter Details Date Type Department Care Team (Late st Contact Info) Description 06/15/2023 Refill Family Practice [facility] [address] [facility] [place] [address] Shana Hamlin MD [address] [place] [id number] Allergies Active Allergy Reactions Criticality Noted Date Comments Gianluca Inhibitors Cough 06/12/2016 Cat Dander 03/31/2020 Ragweed 02/16/2020 Per patient's he is allergic to all weeds, trees, grasses documented as of this encounter (statuses as of 06/17/2023) Medications Medication Sig Dispensed Refills Start Date End Date Status ASPIRIN 81 MG PO TABS one tablet daily 0 Active Blood Glucose Monitoring Suppl (ONETOUCH ULTRA SYSTEM) W/DEVICE KITIndications:Type 2 diabetes mellitus with hemoglobin A1c goal of less than 7.5% ([facility]) Use as directed 2 times a day. E11.9 1 Kit 0 6 Active ONETOUCH DELICA LANCETS 33G MISCIndications:Typ e 2 diabetes mellitus with hemoglobin A1c goal of less than 7.5% ([facility]) USE DIRECTED TWICE DAILY. USE UP TO FOUR TIMES A DAY DIRECTED. 100 Each 10 8 Active Azelastine HCl 0.1 % nasal spray Administer 1 [place] into nostril 2 times a day. 30 [...] 15 minutes 25 Tab 11 1 Active Mometasone Furoate 50 MCG/ACT Nasal SuspensionIndicatio ns:Chronic rhinitis Administer into each nostril 2 Sprays daily . 51 g 11 2 Active SUMAtriptan Succinate 25 MG Oral Tablet (Imitrex)Indication s:Migraine variant take 2 tablets by mouth at onset of migraine, and 1 tablet every 2 hours if needed; not more than 5 tablets in 24 hours 6 Tablet 11 2 Active Vitamin B-12 1000 MCG Oral Tablet TAKE 1 TABLET BY MOUTH ONCE DAILY 100 Tablet 2 2 Active glipiZIDE 5 MG Oral Tablet (Glucotrol) TAKE 1 TABLET BY MOUTH TWICE DAILY. TAKE 30 MINUTES BEFORE A MEAL 180 Tablet 3 2 Active Atorvastatin Calcium 20 MG Oral [...] before bedtime 240 mL 0 3 Active Sodium Chloride 3 % Inhalation Nebulization Solution INHALE 4 ML VIA NEBULIZER IN THE MORNING AND 4 ML BEFORE BEDTIME 240 mL 0 3 06/17/20 23 Discontinued Hospital, Clinic, or Other Facility Administered Medication Ordered Dose Route Frequency Start Date End Date Status omalizumab (XOLAIR) inj 150 mgIndications:Poorly controlled severe persistent asthma with acute exacerbation 150 mg SC [id number] 05/13/2020 Active omalizumab (XOLAIR) inj 150 mgIndications:Poorly controlled severe persistent asthma with acute exacerbation 150 mg SC [id number] 05/13/2020 Active documented as of this encounter (statuses as of 06/17/2023) Active Problems Problem Noted Date Diagnosed Date [...] as of this encounter (statuses as of 06/17/2023) Resolved Problems Problem Noted Date Diagnosed Date [...] as of this encounter (statuses as of 06/17/2023) Immunizations Name Administration Dates Next Due COVID-19 [...] Telephone Encounter - Shana Hamlin MD - 06/17/2023 7:07 AM ESTSigned Prescriptions: Disp Refills Sodium Chloride 3 % Inhalation Nebulizatio*240 mL 0 Sig: Inhale 4ml via nebulizer in the morning and 4ml before bedtime Authorizing Provider: SHANA HAMLIN * Telephone Encounter - Avani Murillo LPN - 06/17/2023 6:51 AM ESTPending Prescriptions: Disp Refills Sodium Chloride 3 % Inhalation Nebulizatio*240 mL 0 Sig: Inhale 4ml via nebulizer in the morning and 4ml before bedtime * Telephone Encounter - Avani Murillo LPN - 06/17/2023 6:50 AM EST Did you pend patient's preferred pharmacy and medication before forwarding?yes Pharmacy: [id number] [facility] Pending Prescriptions: Disp Refills Sodium Chloride 3 % Inhalation Nebulizati*240 mL 0 Sig: Inhale 4ml via nebulizer in the morning and 4ml before bedtime Last Visit: 05/24/2023 (in office), Visit date not found (telemedicine) Next Visit: 11/25/2023 If no future appointments scheduled, and last appointment is greater than a year ago, please schedule patient for a follow-up appointment Last date the medication was ordered: 05/06/23 Is this request for a controlled substance?No Urine Drug Screen:No results found. However, due [...] AM HGBA1C 6.3 (H) 12/14/2019 11:27 AM * Telephone Encounter - Zhang Tucker - 06/15/2023 1:27 PM ESTPending Prescriptions: Disp Refills Sodium Chloride 3 % Inhalation Nebulizatio*240 mL 0 Sig: [id number] via nebulizer in the morning and 4ml before bedtime documented in this encounter Plan of Treatment Upcoming Encounters Date Type Department Care Team (Late st Contact Info) Description 11/25/2023 10:20 AM EDT Office Visit Family [facility] [address] [place] [address] Shana Hamlin MD [address] [place] [id number] Scheduled Procedures Name Priority Associated Diagnoses Date/Ti [...] 07/13/2022, Additional history exists TSH 05/24/2024 05/24/2023, 11/0 07/2021, 03/20/2021, Additional history exists DTaP,Tdap,and Td Vaccines [...] Not on filedocumented as of this encounter Care Teams Field Specialist Relationship Specialty Start Date End Date Shana Hamlin MD [address] [place] [address] PCP - General Family Medicine 08/19/19 documented as of this encounter
--- OUTSIDE RECORDS SUMMARY | 2023-07-25 04:08 | External Medical Summary | Summary of Care ---
Author Name Unknown Organization [facility] Address [address] [facility] [place] [address] Phone [phone] Care Team Providers Care Whizzer Name Role Phone Enrico Mccauley MD Primary Care Provider [phone] Reason for Visit * Reason Onset Date Comments Medication Refill 06/06/2023 Encounter Details Date Type Department Care Team (Late st Contact Info) Description 06/06/2023 Refill Family Practice [facility] [address] [place] [address] Enrico Mccauley MD [address] [place] [address] Eosinophilic asthma Allergies Active Allergy Reactions Criticality Noted Date Comments Gianluca Inhibitors Cough 06/12/2016 Cat Dander 03/31/2020 Ragweed 02/16/2020 Per patient's he is allergic to all weeds, trees, grasses documented as of this encounter (statuses as of 06/06/2023) Medications Medication Sig Dispensed Refills Start Date End Date Status ASPIRIN 81 MG PO TABS one tablet daily 0 Active Blood Glucose Monitoring Suppl (ONETOUCH ULTRA SYSTEM) W/DEVICE KITIndications:Type 2 diabetes mellitus with hemoglobin A1c goal of less than 7.5% ([facility]) Use as directed 2 times a day. E11.9 1 Kit 0 07/27/2016 Active ONETOUCH DELICA LANCETS 33G MISCIndications:Typ e 2 diabetes mellitus with hemoglobin A1c goal of less than 7.5% ([facility]) USE DIRECTED TWICE DAILY. USE UP TO FOUR TIMES A DAY DIRECTED. 100 Each 10 09/26/2017 Active Azelastine HCl 0.1 % nasal spray Administer 1 [place] into nostril 2 times a day. 30 [...] 01/12/2021 Active Mometasone Furoate 50 MCG/ACT Nasal SuspensionIndicatio [...] hemoglobin A1c goal of less than 8.0% ([facility]) Use up to four times daily to [...] the morning. 90 Tablet 2 06/06/2023 Active Montelukast Sodium 10 MG Oral Tablet (Singulair)Indicati ons:Eosinophilic asthma Take 1 Tablet by mouth in the morning. 90 Tablet 2 09/06/2022 3 Discontinu ed(Refill) Hospital, Clinic, or Other Facility Administered Medication Ordered Dose Route Frequency Start Date End Date Status omalizumab (XOLAIR) inj 150 mgIndications:Poorly controlled severe persistent asthma with acute exacerbation 150 mg SC [id number] 05/13/2020 Active omalizumab (XOLAIR) inj 150 mgIndications:Poorly controlled severe persistent asthma with acute exacerbation 150 mg SC [id number] 05/13/2020 Active documented as of this encounter (statuses as of 06/06/2023) Active Problems Problem Noted Date Diagnosed Date [...] as of this encounter (statuses as of 06/06/2023) Resolved Problems Problem Noted Date Diagnosed Date [...] as of this encounter (statuses as of 06/06/2023) Immunizations Name Administration Dates Next Due COVID-19 [...] Telephone Encounter - Shanae Nation MD - 06/06/2023 5:34 PM EST Signed Prescriptions: Disp Refills Montelukast Sodium 10 MG Oral Tablet (Sing*90 Tab*2 Sig: Take 1 Tablet by mouth in the morning. Authorizing Provider: SHANAE NATION * Telephone Encounter - Abigail León LPN - 06/06/2023 2:19 PM ESTPending Prescriptions: Disp Refills Montelukast Sodium 10 MG Oral Tablet (Sing*90 Tab*2 Sig: Take 1 Tablet by mouth in the morning. * Telephone Encounter - Lauren Sahu - 06/06/2023 1:58 PM EST Did you pend patient's preferred pharmacy and medication before forwarding?yes Pharmacy: [facility] [id number] Pending Prescriptions: Disp Refills Montelukast Sodium 10 MG Oral Tablet (Sin*90 Tab*2 Sig: Take 1 Tablet by mouth in the morning. Last Visit: 05/24/2023 (in office), Visit date not found (telemedicine) Next Visit: 11/25/2023 If no future appointments scheduled, and last appointment is greater than a year ago, please schedule patient for a follow-up appointment Last date the medication was ordered: 2.9.23 Is this request for a controlled substance?No [...] 11/25/2023 10:20 AM EDT Office Visit Family [facility] [address] [place] [address] Enrico Mccauley MD [address] [place] [address] Scheduled Procedures Name Priority Associated Diagnoses Date/Ti [...] 07/05/2016, Additional history exists HbA1c 11/23/2023 05/24/2023, 10/28, 07/13/2022, Additional history exists TSH 05/24/2024 05/24/2023, [...] as of this encounter Visit Diagnoses Diagnosis Eosinophilic asthma Pulmonary eosinophilia documented in this encounter Care Teams Whizzer Relationship Specialty Start Date End Date Enrico Mccauley MD [address] [place] [phone] PCP - General Family Medicine 08/19/19 documented as of this encounter
--- OUTSIDE RECORDS SUMMARY | 2023-07-25 04:08 | External Medical Summary | Summary of Care ---
Author Name Unknown Organization [facility] Address [address] [facility] [place] [address] Phone [phone] Care Team Providers Care Assembler Fishing Floats Name Role Phone Shana Hamlin MD Primary Care Provider [phone] Reason for Visit * Reason Onset Date Comments Medication Refill 07/11/2023 Encounter Details Date Type Department Care Team (Late st Contact Info) Description 07/11/2023 Refill Family Practice [facility] [address] [place] [address] Shana Hamlin MD [address] [place] [address] Type 2 diabetes mellitus with hemoglobin A1c goal of less than 7.5% (HCC) Allergies Active Allergy Reactions Criticality Noted Date Comments Gianluca Inhibitors Cough 06/12/2016 Cat Dander 03/31/2020 Ragweed 02/16/2020 Per patient's he is allergic to all weeds, trees, grasses documented as of this encounter (statuses as of 07/11/2023) Medications Medication Sig Dispensed Refills Start Date End Date Status ASPIRIN 81 MG PO TABS one tablet daily 0 Active Blood Glucose Monitoring Suppl (OmnyPay ULTRA SYSTEM) W/DEVICE KITIndications:Type 2 diabetes mellitus with hemoglobin A1c goal of less than 7.5% (HCC) Use as directed 2 times a day. E11.9 1 Kit 0 07/27/2016 Active Azelastine HCl 0.1 % nasal spray Administer 1 [place] into nostril 2 times a day. 30 [...] hemoglobin A1c goal of less than 8.0% ([facility]) Use up to four [...] the morning. 90 Tablet 2 06/06/2023 Active Sodium Chloride 3 % Inhalation Nebulization Solution Inhale 4ml via nebulizer in the morning and 4ml before bedtime 240 mL 0 06/17/2023 Active glipiZIDE 5 MG Oral Tablet (Glucotrol) [...] DAY DIRECTED. 100 Each 10 07/11/2023 Active ONETOUCH DELICA LANCETS 33G MISCIndications:Typ e 2 diabetes mellitus with hemoglobin A1c goal of less than 7.5% (HCC) USE DIRECTED TWICE DAILY. USE UP TO FOUR TIMES A DAY DIRECTED. 100 Each 10 09/26/2017 3 Discontinu ed(Refill) Hospital, Clinic, or Other Facility Administered Medication Ordered Dose Route Frequency Start Date End Date Status omalizumab (XOLAIR) inj 150 mgIndications:Poorly controlled severe persistent asthma with acute exacerbation 150 mg SC [id number] 05/13/2020 Active omalizumab (XOLAIR) inj 150 mgIndications:Poorly controlled severe persistent asthma with acute exacerbation 150 mg SC [id number] 05/13/2020 Active documented as of this encounter (statuses as of 07/11/2023) Active Problems Problem Noted Date Diagnosed Date [...] as of this encounter (statuses as of 07/11/2023) Resolved Problems Problem Noted Date Diagnosed Date [...] previous appt. ABN BLOOD CHEMISTRY NEC 10/16/2004 08/01/2007 Esophageal reflux 12/27/2000 03/04/2007 HELICOBACTER PYLORI (H. 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 Esophagitis 10/06/2009 Overview: ICD-10 update of inactive term Asthma, severe persistent, poorly-controlled 12/21/2020 documented as of this encounter (statuses as of 07/11/2023) Immunizations Name Administration Dates Next Due COVID-19 [...] Telephone Encounter - Shana Hamlin MD - 07/11/2023 10:51 AM ESTSigned Prescriptions: Disp Refills OneTouch Delica Lancets 33G 100 Ea*10 Sig: USE DIRECTED TWICEDAILY. USE UP TO FOUR TIMES A DAY DIRECTED.Authorizing Provider: SHANA HAMLIN documented in this encounter Plan of Treatment Upcoming Encounters Date Type Department Care Team (Late st Contact Info) Description 11/25/2023 10:20 AM EDT Office Visit Family Practice [facility] [address] [facility] [place] [address] Shana Hamlin MD [address] [facility] [place] [address] Scheduled Procedures Name Priority Associated Diagnoses Date/Ti [...] (HCC) documented in this encounter Care Teams Assembler Fishing Floats Relationship Specialty Start Date End Date Shana Hamlin MD [address] [facility] [place] [address] PCP - General Family Medicine 08/19/19 documented as of this encounter
--- OUTSIDE RECORDS SUMMARY | 2023-07-25 04:08 | External Medical Summary | Summary of Care ---
Author Name Unknown Organization [facility] Address [address] [place] [facility] [place] [address] Phone [phone] Care Team Providers Care Maintenance Engineer Oil [employer] Name Role Phone Enrico Mccauley MD Primary Care Provider [phone] [phone] Reason for Visit * Reason Onset Date Comments Follow Up Pt here with wif e for follow up, c/o cough Medication Administration 05/24/2023 Flu an d/or Pneumo Inj Encounter Details Date Type Department Care Team (Late st Contact Info) Description 05/24/2023 9:00 AM EDT Office Visit [facility] [place] [address] [place] [address] Enrico Mccauley MD [address] [facility] [place] [address] Severe persistent asthma dependent on systemic steroids*; Need for prophylactic vaccination and inoculation against influenza; Type 2 diabetes mellitus with hemoglobin A1c goal of less than 8.0% ([facility]); Type 2 diabetes mellitus with diabetic nephropathy, without long-term current use of insulin ([facility]); Dyslipidemia; Acquired hypothyroidism; Restrictive lung disease; Neuromuscular respiratory weakness (HCC); Mild aortic stenosis; HTN, goal below 130/80; Chronic heart failure with preserved ejection fraction (HCC); Gastroesophageal reflux disease without esophagitis; BPH with obstruction/lower urinary tract symptoms; Migraine variant; Periodic limb movement disorder (PLMD); Obesity, Class I, BMI 30.0-34.9 (see actual BMI) Allergies Active Allergy Reactions Criticality Noted Date Comments Gianluca Inhibitors Cough 06/12/2016 Cat Dander 03/31/2020 Ragweed 02/16/2020 Per patient's he is allergic to all weeds, trees, grasses documented as of this encounter (statuses as of 05/24/2023) Medications Medication Sig Dispensed Refills Start Date End Date Status ASPIRIN 81 MG PO TABS one tablet daily 0 Active Blood Glucose Monitoring Suppl ([employer] ULTRA SYSTEM) W/DEVICE KITIndications:Type 2 diabetes mellitus [...] HCl 0.1 % nasal spray Administer 1 [place] into nostril 2 times a day. 30 [...] EVERY EVENING 90 Tablet 3 3 Active Montelukast Sodium 10 MG Oral Tablet (Singulair)Indicati ons:Eosinophilic asthma Take 1 Tablet by mouth in the morning. 90 Tablet 2 3 Active [facility] Glucose Meter Test Strips In Vitro Strip (Glucose Blood)Indications:T ype 2 diabetes mellitus with hemoglobin A1c goal of less than 8.0% ([facility]) Use up to four times daily to [...] after use 90 Each 2 3 Active Sodium Chloride 3 % Inhalation Nebulization Solution INHALE 4 ML VIA NEBULIZER IN THE MORNING AND 4 ML BEFORE BEDTIME 240 mL 0 3 Active Benzonatate 200 MG Oral Capsule 0 3 Active Benzonatate 100 MG Oral Capsule (Tessalon Perles) Take 1 Capsule by mouth 3 times a day as needed for Cough. 30 Capsule 0 3 05/24/20 23 Discontinued Zoster Vac Recomb Adjuvanted 50 MCG/0.5ML Intramuscular Suspension Reconstituted (Shingrix)Indicatio ns:Need for shingles vaccine Inject 0.5 mL into a large muscle now and repeat dose in 60 to 180 days 1 Each 1 3 05/24/20 23 Discontinued Hospital, Clinic, or Other Facility Administered Medication Ordered Dose Route Frequency Start Date End Date Status omalizumab (XOLAIR) inj 150 mgIndications:Poorly controlled severe persistent asthma with acute exacerbation 150 mg SC [id number] 05/13/2020 Active omalizumab (XOLAIR) inj 150 mgIndications:Poorly controlled severe persistent asthma with acute exacerbation 150 mg SC [id number] 05/13/2020 Active documented as of this encounter [...] Influenza, Split, I IV3, With Preserve, Inj 05/28/2014,05/16/2013,05/17/2012,1101/2011,05/12/2010,06/15/2009,04/29/20 06 TDAP (age 10 and older)(Boostrix) 02/06/2019 [...] Sign Reading Time Taken Comments Blood Pressure 138/78 05/24/2023 9:07 AM EDT Pulse 92 05/24/2023 9:07 AM EDT Temperature 36.2 C (97.2 F) 05/24/2023 9:07 AM ED T Respiratory Rate 18 05/24/2023 9:07 AM EDT Oxygen Saturation - - Inhaled Oxygen Concentration - - Weight 77.6 kg (171 lb) 05/24/2023 9:07 AM EDT Height 157.5 cm (5' 2") 05/24/2023 9:07 AM EDT Body Mass Index 31.28 05/24/2023 9:07 AM EDT documented in this encounter Progress Notes * Enrico Mccauley MD - 05/24/2023 9:16 AM EDT SUBJECTIVE: Alcides Sebastian is a 77 year old male. Chief Complaint Patient presents with Follow Up Pt here with for follow up, c/o cough Medication Administration Flu and/or Pneumo Inj HPI: Here for routine follow up. Alcides is a complicated but stable 77 year old male with very severe asthma requiring xolair injections. Currently he feels well. He was in the ER last week after being sentfrom the office for symptoms concerning for CVA. Fortunately all testing was normal and it was determined to be caused by hyperglycemia and dehydration. Patient Active Problem List Diagnosis Code Acquired hypothyroidism E03.9 Dyslipidemia E78.5 HTN, goal below 130/80 I10 Type 2 diabetes mellitus with hemoglobin A1c goal of less than 8.0% ([facility]) 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, N13.8 PHILLIP (obstructive sleep apnea) G47.33 Periodic limb movement disorder (PLMD) G47.61 Migraine variant G43.809 Mild aortic stenosis I35.0 Severe persistent asthma dependent on systemic steroids J45.50, Z79.52 Restrictive lung disease J98.4 Obesity, Class I, BMI 30.0-34.9 (see actual BMI) E66.9 Chronic heart failure with preserved ejection fraction ([facility]) I50.32 Gastroesophageal reflux disease without esophagitis K21.9 Type 2 diabetes mellitus with diabetic nephropathy ([facility]) E11.21 Neuromuscular respiratory weakness ([facility]) G70.9, J99 Current Outpatient Medications Medication Sig Dispense Refill ASPIRIN 81 MG PO TABS one tablet daily Blood Glucose Monitoring Suppl ([employer] SYSTEM) W/DEVICE KIT Use as directed 2 times a day. E11.9 1 Kit 0 Azelastine HCl 0.1 % nasal spray Administer 1 [place] into nostril 2 times a day. 30 [...] mouth in the morning. 90 Tablet 2 [facility] Glucose Meter Test Strips In Vitro [...] TIMES A DAY NEEDED. 360 mL 5 amLODIPine Besylate 5 MG Oral Tablet (Norvasc) [...] AND 4ML BEFORE BEDTIME 240 mL 0 Benzonatate 200 MG Oral Capsule ONETOUCH DELICA LANCETS 33G MISC USE DIRECTED TWICE DAILY. USE UP TO FOUR TIMES A DAY DIRECTED. 100 Each 10 Current Facility-Administered Medications Medication Dose Route Frequency Provider Last Rate Last Admin omalizumab (XOLAIR) inj 150 mg 150 mg Subcutaneous Q4 Weeks Rhed, Asmita Lana, [employer] 150 mg at 03/25/23 1056 omalizumab (XOLAIR) inj 150 mg 150 mg Subcutaneous Q4 Weeks Rhed, Asmita Lana, [employer] 150 mg at 03/25/23 1055 Allergy: Review of patient's allergies indicates: Allergen Reactions Gianluca Inhibitors Cough Cats [Cat Dander] Environmental [Ragweed] Per patient's he is allergic to all weeds, trees, grasses OBJECTIVE: BP 138/78 | Pulse 92 | Temp 36.2 C (97.2 F) (Tympanic) | Resp 18 | Ht 1.575 m (5' 2") | Wt 77.6kg (171 lb) | BMI 31.28 kg/m | BSA 1.84 m Gen: aao x 3, uses cane for ambulation Lungs: bilateral scattered rhonchi; no wheeze Heart: rrr, no mrg Ext: no c/c/e Neuro: grossly normal ASSESSMENT AND PLAN: (J45.50, Z79.52) Severe persistent asthma dependent on systemic steroids (primary encounter diagnosis) Plan: stable --- mgmt per pulm (Z23) Need for prophylactic vaccination and inoculation against influenza Plan: INFLUENZA VACC, QUAD, HIGH DOSE (FLUZONE HD) (E11.9) Type 2 diabetes mellitus with hemoglobin A1c goal of less than 8.0% (HCC) Plan: check A1c today (E11.21) Type 2 diabetes mellitus with diabetic nephropathy, without long-term current use of insulin (HCC) Plan: see above (E78.5) Dyslipidemia Plan: stable (E03.9) Acquired hypothyroidism Plan: euthyroid (J98.4) Restrictive lung disease Plan: chronic/stable (G70.9, J99) Neuromuscular respiratory weakness (HCC) Plan: chronic/stable (I35.0) Mild aortic stenosis Plan: stable (I10) HTN, goal below 130/80 Plan: @ goal (I50.32) Chronic heart failure with preserved ejection fraction (HCC) Plan: asymptomatic (K21.9) Gastroesophageal reflux disease without esophagitis Plan: quiescent (N40.1, N13.8) BPH with obstruction/lower urinary tract symptoms Plan: stable (G43.809) Migraine variant Plan: quiescent (G47.61) Periodic limb movement disorder (PLMD) Plan: noted/stable (E66.9) Obesity, Class I, BMI 30.0-34.9 (see actual BMI) Plan: stable weight Follow up in 6 month(s). No other complaints were offered at this time. Enrico Mccauley MD * Avani Adams LPN - 05/24/2023 9:09 AM EDT Immunization Administration Documentation Time Out Procedure Performed: Yes Patient Identified (Ask Name/Date of ): Yes Does the patient have a fever greater than 101 degrees today? No Patient allergic to latex? No VFC Stock: No Immunization(s) verified: Yes, Immunization Name: Flu, VIS Sheet(s) given: Yes Verified Side and Site: Yes Verified Shot(s) with Parent(s)/Patient: Yes PRE - ADMINISTRATION DOCUMENTATION Are you experiencing any cold symptoms or fever? No Have you had Guillain-[place] Syndrome (an illness that causes paralysis) within the last 6 weeks? No Have you had the flu shot in the past? YES Have you ever had a reaction to the flu shot? No Avani Adams LPN, 05/24/2023 9:09 AM documented in this encounter Nursing Notes * Avani Adams LPN - 05/24/2023 9:07 AM EDT The patient has been properly identified by confirmation of name and date of . Chief Complaint Patient presents with Follow Up Pt here with for follow up, c/o cough documented in this encounter Plan of Treatment Upcoming Encounters Date Type Department Care Team (Latest Contact Info) Description 05/24/2023 10:15 AM EDT Nurse Only Pulmonary Medicine, [facility] [address] [place] [address] Gw, Nurse Pulmonary [address] [place] [address] Medication Administration 11/25/2023 10:20 AM EDT Office Visit Family Practice [facility] [address] [place] [address] Enrico Mccauley MD [address] [place] [address] Pending Results Name Type Priority Associated Diagnoses Date /Time HEMOGLOBIN A1C Lab Routine Type 2 diabetes mellitus with hemoglobin A1c goal of less than 8.0% (HCC) 05/24/2023 9:33 AM EDT TSH WITH FREE T4 IF INDICATED Lab Routine Acquired hypothyroidism 05/24/2023 9:33 AM EDT Scheduled Orders Name Type Priority Associated Diagnoses Orde r Schedule HEMOGLOBIN A1C Lab Routine Type 2 diabetes mellitus with hemoglobin A1c goal of less than 8.0% (HCC) Expected: 05/24/2023 (Approximate), Expires: 05/23/2024 TSH WITH FREE T4 IF INDICATED Lab Routine Acquired hypothyroidism Expected: 05/24/2023 (Approximate), Expires: 05/23/2024 Scheduled Procedures Name Priority Associated Diagnoses Date/Ti [...] as of this encounter Visit Diagnoses Diagnosis Severe persistent asthma dependent on systemic steroids- Primary Need for prophylactic vaccination and inoculation against influenza Type 2 diabetes mellitus with hemoglobin A1c goal of less than 8.0% (HCC) Type 2 diabetes mellitus with diabetic nephropathy, without long-term current use of insulin (HCC) Dyslipidemia Other and unspecified hyperlipidemia Acquired hypothyroidism Unspecified hypothyroidism Restrictive lung disease Other diseases of lung, not elsewhere classified Neuromuscular respiratory weakness (HCC) Other diseases of respiratory system, not elsewhere classified Mild aortic stenosis Aortic valve disorders HTN, goal below 130/80 Unspecified essential hypertension Chronic heart failure with preserved ejection fraction (HCC) Gastroesophageal reflux disease without esophagitis Esophageal reflux BPH with obstruction/lower urinary tract symptoms Hypertrophy of prostate with urinary obstruction and other lower urinary tract symptoms (LUTS) Migraine variant Variants of migraine, not elsewhere classified, without mention of intractable migraine without mention of status migrainosus Periodic limb movement disorder (PLMD) Periodic limb movement disorder Obesity, Class I, BMI 30.0-34.9 (see actual BMI) Obesity, unspecified documented in this encounter Care Teams Maintenance Engineer Oil [employer] Relationship Specialty Start Date End Date Enrico Mccauley MD [address] [place] [address] PCP - General Family Medicine 08/19/19 documented as of this encounter
--- OUTSIDE RECORDS SUMMARY | 2023-07-25 04:08 | External Medical Summary | Summary of Care ---
Author Name Unknown Organization [facility] Address [address] [facility] [place] [address] Phone [phone] Care Team Providers Care Urban And Regional Planner Name Role Phone Shana Hamlin MD Primary Care Provider [phone] Reason for Visit * Reason Comments eRx-Medication Refill Encounter Details Date Type Department Care Team (Late st Contact Info) Description 06/22/[address] [facility] [address] [facility] [place] [address] Shana Hamlin MD 132 [facility] [place] [address] Encounter for long-term (current) use of medications* Allergies Active Allergy Reactions Criticality Noted Date Comments Gianluca Inhibitors Cough 06/12/2016 Cat Dander 03/31/2020 Ragweed 02/16/2020 Per patient's he is allergic to all weeds, trees, grasses documented as of this encounter (statuses as of 06/24/2023) Medications Medication Sig Dispensed Refills Start Date End Date Status ASPIRIN 81 MG PO TABS one tablet daily 0 Active Blood Glucose Monitoring Suppl ([employer] ULTRA SYSTEM) W/DEVICE KITIndications:Type 2 diabetes mellitus with hemoglobin A1c goal of less than 7.5% ([facility]) Use as directed 2 times a day. E11.9 1 Kit 0 6 Active ONETOUCH PAMELAICA LANCETS 33G MISCIndications:Typ e 2 diabetes mellitus with hemoglobin A1c goal of less than 7.5% ([facility]) USE DIRECTED TWICE DAILY. USE UP TO FOUR TIMES A DAY DIRECTED. 100 Each 10 8 Active Azelastine HCl 0.1 % nasal spray Administer 1 [place] into nostril 2 times a day. 30 [...] hemoglobin A1c goal of less than 8.0% ([facility]) Use up to four times daily [...] a meal 180 Tablet 1 3 Active glipiZIDE 5 MG Oral Tablet (Glucotrol) TAKE 1 TABLET BY MOUTH TWICE DAILY. TAKE 30 MINUTES BEFORE A MEAL 180 Tablet 3 2 06/24/20 23 Discontinued Hospital, Clinic, or Other Facility Administered Medication Ordered Dose Route Frequency Start Date End Date Status omalizumab (XOLAIR) inj 150 mgIndications:Poorly controlled severe persistent asthma with acute exacerbation 150 mg SC [id number] 05/13/2020 Active omalizumab (XOLAIR) inj 150 mgIndications:Poorly controlled severe persistent asthma with acute exacerbation 150 mg SC [id number] 05/13/2020 Active documented as of this encounter (statuses as of 06/24/2023) Active Problems Problem Noted Date Diagnosed Date [...] as of this encounter (statuses as of 06/24/2023) Resolved Problems Problem Noted Date Diagnosed Date [...] as of this encounter (statuses as of 06/24/2023) Immunizations Name Administration Dates Next Due COVID-19 [...] encounter Miscellaneous Notes * Telephone Encounter - Rajat Hinds, [facility] - 06/24/2023 4:55 AM ESTSigned Prescriptions: Disp Refills glipiZIDE 5 MG Oral Tablet (Glucotrol) 180 Ta*1 Sig: TAKE 1 TABLET BY MOUTH TWICE DAILY 30 minutes before a mealAuthorizing Provider: SHANA HAMLIN User: RAJAT HINDS * Telephone Encounter - Rajat Hinds RP - 06/24/2023 4:53 AM EST Provided 90 days supply with 1 refill(s) until next routine labs will approximately be drawn. Per refill protocol patient should have BMP and Lipid panel on file within past year. Reviewed AMP report, Care Gaps/Health Maintenance, medications list, and for any routine labs typically ordered for this patient. Lab orders placed. Patient can complete labs with next routine lab work. Thank You, Rajat Hinds [facility] Clinical Pharmacist [facility] ([facility]) (formerly Telepharmacy) [phone] 06/24/2023, 4:54 AM documented in this encounter Plan of Treatment Upcoming Encounters Date Type Department Care Team (Late st Contact Info) Description 11/25/2023 10:20 AM EDT Office Visit Family [facility] [address] [facility] [place] [address] Shana Hamlin MD [address] [place] [address] Scheduled Orders Name Type Priority Associated Diagnoses Orde r Schedule BASIC METABOLIC PANEL Lab Routine Encounter for long-term (current) use of medications Expected: 06/24/2023 (Approximate), Expires: 06/24/2024 LIPID PANEL WITH DIRECT LDL IF TG IS HIGH Lab Routine Encounter for long-term (current) use of medications Expected: 06/24/2023 (Approximate), Expires: 06/24/2024 ALBUMIN / CREATININE RATIO, URINE Lab Routine Encounter for long-term (current) use of medications Expected: 07/13/2023 (Approximate), Expires: 06/24/2024 Scheduled Procedures Name Priority Associated Diagnoses Date/Ti [...] as of this encounter Visit Diagnoses Diagnosis Encounter for long-term (current) use of medications- Primary Encounter for long-term (current) use of other medications documented in this encounter Care Teams Urban And Regional Planner Relationship Specialty Start Date End Date Shana Hamlin MD [address] [place] [address] PCP - General Family Medicine 08/19/19 documented as of this encounter
--- OUTSIDE RECORDS SUMMARY | 2023-07-25 04:08 | External Medical Summary | Summary of Care ---
Author Name Unknown Organization [facility] Address [address] [facility] [place] [address] Phone [phone] Care Team Providers Care Drug Counselor Name Role Phone nErico Mccauley MD Primary Care Provider [phone] [phone] Reason for Visit * Reason Onset Date Comments Follow Up Pt here with wif e for follow up, c/o cough Medication Administration 05/24/2023 Flu an d/or Pneumo Inj Encounter Details Date Type Department Care Team (Late st Contact Info) Description 05/24/2023 9:00 AM EDT Office Visit [facility] [address] [place] [address] Enrico Mccauley MD [address] [place] [address] Severe persistent asthma dependent on systemic steroids*; Need for prophylactic vaccination and inoculation against influenza; Type 2 diabetes mellitus with hemoglobin A1c goal of less than 8.0% ([facility]); Type 2 diabetes mellitus with diabetic nephropathy, without long-term current use of insulin ([facility]); Dyslipidemia; Acquired hypothyroidism; Restrictive lung disease; Neuromuscular [...] as of this encounter (statuses as of 05/27/2023) Medications Medication Sig Dispensed Refills Start Date End Date Status ASPIRIN 81 MG PO TABS one tablet daily 0 Active Blood Glucose Monitoring Suppl ([employer] ULTRA SYSTEM) W/DEVICE KITIndications:Type 2 diabetes mellitus [...] HCl 0.1 % nasal spray Administer 1 [place] into nostril 2 times a day. 30 [...] A1c goal of less than 8.0% ([facility]) Use up to four times daily to [...] asthma with acute exacerbation 150 mg SC [id number] 05/13/2020 Active omalizumab (XOLAIR) inj 150 mgIndications:Poorly controlled severe persistent asthma with acute exacerbation 150 mg SC [id number] 05/13/2020 Active documented as of this encounter (statuses as of 05/27/2023) Active Problems Problem Noted Date Diagnosed Date [...] as of this encounter (statuses as of 05/27/2023) Resolved Problems Problem Noted Date Diagnosed Date [...] as of this encounter (statuses as of 05/27/2023) Immunizations Name Administration Dates Next Due COVID-19 [...] A1c goal of less than 8.0% ([facility]) 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, N13.8 PHILLIP (obstructive sleep apnea) G47.33 Periodic limb movement disorder (PLMD) G47.61 Migraine variant G43.809 Mild aortic stenosis I35.0 Severe persistent asthma dependent on systemic steroids J45.50, Z79.52 Restrictive lung disease J98.4 Obesity, Class I, BMI 30.0-34.9 (see actual BMI) E66.9 Chronic heart failure with preserved ejection fraction ([facility]) I50.32 Gastroesophageal reflux disease without esophagitis K21.9 Type 2 diabetes mellitus with diabetic nephropathy ([facility]) 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 E11.9 1 Kit 0 Azelastine HCl 0.1 % nasal spray Administer 1 [place] into nostril 2 times a day. 30 [...] mg Subcutaneous Q4 Weeks Rhed, Asmita Lana, [employer] 150 mg at 03/25/23 1056 omalizumab (XOLAIR) inj 150 mg 150 mg Subcutaneous Q4 Weeks Rhed, Asmita Lana, HOME HE[employer] LVN 150 mg at 03/25/23 1055 Allergy: Review [...] symptoms or fever? No Have you had Guillain-[place] Syndrome (an illness that causes paralysis) within [...] 10:20 AM EDT Office Visit Family Practice [facility] [address] [place] [address] Enrico Mccauley MD [address] [place] [address] Scheduled Procedures Name Priority Associated Diagnoses Date/Ti [...] Not on filedocumented as of this encounter Results * TSH WITH FREE T4 IF INDICATED (05/24/2023 9:33 AM EDT) TSH 1.94 0.27 - 4.20 uIU/mL 05/24/2023 9:13 PM EDT [facility] Blood Venous blood specimen / Unknown Venipuncture / Unknown 05/24/2023 9:33 AM EDT 05/24/2023 9:33 AM EDT Enrico Mccauley MD LAB BLOOD ORDERAB LES Performing Organization Address [facility] de Phone Number [facility] [address], [place] [id number] * (ABNORMAL) HEMOGLOBIN A1C (05/24/2023 9:33 AM EDT) Hemoglobin A1C 8.9(H) 4.0 - 5.6 % 05/24/2023 3:13 PM EDT [facility] Comment:The use of HbA1c to monitor glycemic status is based on normal hemoglobin and HbA composition. This test should not be used in patients with abnormal hemoglobin that affects the half life of the red blood cell or the in vivo glycation rates. Estimated Average Glucose 209(H) <126 mg/dL 05/24/2023 3:13 PM EDT [facility] Blood Venous blood specimen / Unknown Venipuncture / Unknown 05/24/2023 9:33 AM EDT 05/24/2023 9:33 AM EDT Enrico Mccauley MD LAB BLOOD ORDERAB LES Performing Organization Address [facility] Co de Phone Number [facility] [address] [place], [place] [phone] documented in this encounter Visit Diagnoses Diagnosis Severe persistent [...] unspecified documented in this encounter Care Teams Drug Counselor Relationship Specialty Start Date End Date Enrico Mccauley MD [address] [facility] [place] [address] PCP - General Family Medicine 08/19/19 documented as of this encounter
--- OUTSIDE RECORDS SUMMARY | 2023-07-25 04:08 | External Medical Summary ---
Author Name Unknown Address Unknown Organization [id number]:[facility]ATORY [facility] - [address] [place] [address] Laboratory Report Ordering Provider Test Date Status BOUBACAR SALDANA 05/24/2023 09:33:29 Final Observation Date Value Abnormality Reference (Units ) Status TSH 05/24/2023 09:33:29 1.94 0.27-4.20 (uIU/mL) Final Performing Location [facility]ORY [facility] - [address] [place] [address]
--- OUTSIDE RECORDS SUMMARY | 2023-07-25 04:08 | External Medical Summary | Summary of Care ---
Author Name Unknown Organization [facility] Address [address] [address] Phone [phone] Care Team Providers Care Web Ui Software Engineer Name Role Phone Enrico Mccauley MD Primary Care Provider [phone] [phone] Reason for Visit * Reason Comments eRx-Medication Refill Encounter Details Date Type Department Care Team (Late st Contact Info) Description 07/18/2023 Refill Family Practice [facility] [address] [facility] [place] [address] Enrico Mccauley MD [address] [facility] [place] [address] Allergies Active Allergy Reactions Criticality Noted Date Comments Gianluca Inhibitors Cough 06/12/2016 Cat Dander 03/31/2020 Ragweed 02/16/2020 Per patient's he is allergic to all weeds, trees, grasses documented as of this encounter (statuses as of 07/19/2023) Medications Medication Sig Dispensed Refills Start Date End Date Status ASPIRIN 81 MG PO TABS one tablet daily 0 Active Blood Glucose Monitoring Suppl (SoundCureUCH ULTRA SYSTEM) W/DEVICE KITIndications:Type 2 diabetes mellitus with hemoglobin A1c goal of less than 7.5% ([facility]) Use as directed 2 times a day. E11.9 1 Kit 0 07/27/2016 Active Azelastine HCl 0.1 % nasal spray Administer 1 [place] into nostril 2 times a day. 30 [...] goal of less than 8.0% ([facility]) Use up to four times [...] 06/25/2023 Active Mometasone Furoate 50 MCG/ACT Nasal SuspensionIndication s:Chronic rhinitis administer 2 sprays into each nostril daily 51 g 0 07/04/2023 Active OneTouch Delica Lancets 33GIndications:Type 2 diabetes mellitus with hemoglobin A1c goal of less than 7.5% ([facility]) USE DIRECTED TWICE DAILY. USE UP TO FOUR TIMES A DAY DIRECTED. 100 Each 10 07/11/2023 Active Hospital, Clinic, or Other Facility Administered Medication Ordered Dose Route Frequency Start Date End Date Status omalizumab (XOLAIR) inj 150 mgIndications:Poorly controlled severe persistent asthma with acute exacerbation 150 mg SC [id number] 05/13/2020 Active omalizumab (XOLAIR) inj 150 mgIndications:Poorly controlled severe persistent asthma with acute exacerbation 150 mg SC [id number] 05/13/2020 Active documented as of this encounter (statuses as of 07/19/2023) Active Problems Problem Noted Date Diagnosed Date [...] as of this encounter (statuses as of 07/19/2023) Resolved Problems Problem Noted Date Diagnosed Date [...] as of this encounter (statuses as of 07/19/2023) Immunizations Name Administration Dates Next Due COVID-19 [...] encounter Miscellaneous Notes * Telephone Encounter - Zhang Tucker 07/19/2023 4:59 AM ESTRefused Prescriptions: Disp Refills Sodium Chloride 3 % Inhalation Nebulizatio*240 mL 0 Sig: [id number] via nebulizer in the morning and 4ml before bedtimeRefused By: CARLOS TUCKERETReason for Refusal:Duplicate Request documented in this encounter Plan of Treatment Upcoming Encounters Date Type Department Care Team (Late st Contact Info) Description 11/25/2023 10:20 AM EDT Office Visit Family Practice [facility] [address] [address] Enrico Mccauley MD [address] [place] [address] Scheduled Procedures Name Priority Associated Diagnoses Date/Ti [...] 02/19/2022 02/19/2017, 12/15/2013, 12/15/2013 GFR 05/29/2023 05/29/2022, 0809/2020, 12/14/2019, Additional history exists Diabetic Foot Exam [...] filedocumented as of this encounter Care Teams Web Ui Software Engineer Relationship Specialty Start Date End Date Enrico Mccauley MD [address] [place] [address] PCP - General Family Medicine 08/19/19 documented as of this encounter
--- OUTSIDE RECORDS SUMMARY | 2023-07-25 04:08 | External Medical Summary ---
Author Name Unknown Address Unknown Organization K01:[facility] - [address] [facility] [address] Laboratory Report Ordering Provider Test Date Status BOUBACAR SALDANA 05/24/2023 09:33:29 Final Observation Date Value Abnormality Reference (Units ) Status HbA1C 05/24/2023 09:33:29 8.9 Above high normal 4. 0-5.6 (%) Final The use of HbA1c to monitor glycemic status is based on normal hemoglobin and HbA composition. This test should not be used in patients with abnormal hemoglobin that affects the half life of the red blood cell or the in vivo glycation rates. Glucose, estimated average 05/24/2023 09:33:29 209 Above high normal <126 (mg/dL) Zhen ambriz Performing Location [facility] [place] - [address] [facility] [address]
--- OUTSIDE RECORDS SUMMARY | 2023-07-25 04:09 | External Medical Summary | Summary of Care ---
Author Name Unknown Organization [facility] Address [address] [facility] [address] Phone [phone] Care Team Providers Care Senior Reservations Agent Name Role Phone Enrico Mccauley MD Primary Care Provider [phone] [phone] Reason for Visit * Reason Onset Date Comments Medication Refill 04/23/2023 Arnuity Encounter Details Date Type Department Care Team Description 04/23/2023 Refill Pulmonary Medicine, [facility] [address] [facility] [place] [address] Scot Nunez MD [address] [facility] [place] [id number] Eosinophilic asthma Allergies Active Allergy Reactions Severity Noted Date Comments Gianluca Inhibitors Cough 06/12/2016 Cat Dander 03/31/2020 Ragweed 02/16/2020 Per patient's he is allergic to all weeds, trees, grasses documented as of this encounter (statuses as of 05/03/2023) Medications Medication Sig Dispensed Refills Start Date End Date Status ASPIRIN 81 MG PO TABS one tablet daily 0 Active Blood Glucose Monitoring Suppl (ONETOUCH ULTRA SYSTEM) W/DEVICE KITIndications:Type 2 diabetes mellitus with hemoglobin A1c goal of less than 7.5% ([facility]) Use as directed 2 times a day. E11.9 1 Kit 0 07/27/2016 Active ONETOUCH DELICA LANCETS 33G MISCIndications:Typ e 2 diabetes mellitus with hemoglobin A1c goal of less than 7.5% ([facility]) USE DIRECTED TWICE DAILY. USE UP TO FOUR TIMES A DAY DIRECTED. 100 Each 10 09/26/2017 Active Azelastine HCl 0.1 % nasal spray Administer 1 [place] into nostril 2 times a day. 30 [...] than 8.0% ([facility]) Use up to four times daily to [...] in 60 to 180 days 1 Each 11/21/2022 Active amLODIPine Besylate 5 MG Oral Tablet (Norvasc)Indication s:HTN, goal below 140/90 Take 1 Tablet by mouth in the morning. 90 Tablet 1 02/12/2023 Active Levothyroxine Sodium 100 MCG Oral Tablet (Levoxyl)Indication s:Acquired hypothyroidism Take 1 Tablet by mouth in the morning. (at least 30 min prior to breakfast or other meds). 90 Tablet 1 02/12/2023 Active Sodium Chloride 3 % Inhalation Nebulization Solution Inhale 4 mL via nebulizer in the morning and 4 mL before bedtime. 45 mL 2 02/11/2023 Active Breo Ellipta 200-25 MCG/ACT Inhalation Aerosol [...] after use 90 Each 2 05/03/2023 Active Arnuity Ellipta 100 MCG/ACT Inhalation Aerosol Powder Breath Activated (fluticasone Furoate)Indications :Eosinophilic asthma inhale 1 puff by mouth once daily - rinse mouth after use 90 Each 2 08/14/2022 3 Discontinu ed(Refill) Hospital, Clinic, or Other Facility Administered Medication Ordered Dose Route Frequency Start Date End Date Status omalizumab (XOLAIR) inj 150 mgIndications:Poorly controlled severe persistent asthma with acute exacerbation 150 mg SC [id number] 05/13/2020 Active omalizumab (XOLAIR) inj 150 mgIndications:Poorly controlled severe persistent asthma with acute exacerbation 150 mg SC [id number] 05/13/2020 Active documented as of this encounter (statuses as of 05/03/2023) Active Problems Problem Noted Date Neuromuscular respiratory [...] as of this encounter (statuses as of 05/03/2023) Resolved Problems Problem Noted Date Resolved Date [...] as of this encounter (statuses as of 05/03/2023) Immunizations Name Administration Dates Next Due COVID-19 [...] encounter Miscellaneous Notes * Telephone Encounter - Carlton Sanchez PA-C - 05/03/2023 5:32 PM EDTSigned Prescriptions: Disp Refills Arnuity Ellipta 100 MCG/ACT Inhalation Aer*90 Each2 Sig: inhale 1 puff by mouth once daily - rinse mouth after use Authorizing Provider: CARLTON SANCHEZ * Telephone Encounter - Berta Stephens LPN - 04/23/2023 8:12 AM EDT Did you pend patient's preferred pharmacy and medication before forwarding?yes Pharmacy: [id number] Pending Prescriptions: Disp Refills Arnuity Ellipta 100 MCG/ACT Inhalation Ae*90 Each2 Sig: inhale 1 puff by mouth once daily - rinse mouth after use Last Visit: 07/13/2022 (in office), Visit date not found (telemedicine) Next Visit: Visit date not found If no future appointments scheduled, and last appointment is greater than a year ago, please schedule patient for a follow-up appointment Last date the medication was ordered: 08/14/22 Is this request for a controlled substance?No [...] AM POTASSIUM 4.0 10/21/1996 04:30 PM TSH 0.97 05/29/2022 10:25 AM TSH 0.88 05/06/2019 09:57 AM TSH 0.45 10/21/1996 04:30 PM LDLCALC 44 01/21/2018 12:00 AM LDLCALC 69 11/07/2013 08:37 AM LDLDIRECT 75 05/29/2022 10:25 AM LDLDIRECT 65 05/06/2019 09:57 AM ALT 21 05/29/2022 10:25 AM ALT 49 07/05/2016 12:00 AM ALT 48 06/09/2015 08:21 AM HGBA1C 9.1 (H) 11/21/2022 09:22 AM HGBA1C 6.3 (H) 12/14/2019 11:27 AM documented in this encounter Plan of Treatment Upcoming Encounters Date Type Specialty Care Team Description 05/24/2023 Office Visit Family Medicine Enrico Mccauley MD [address] [facility] [place] [address] Scheduled Procedures Name Priority Associated Diagnoses Date/Ti [...] 02/05/2022, Additional history exists GFR 05/29/2023 05/29/2022, 0809/2020, 12/14/2019, Additional history exists TSH 05/29/2023 05/29/2022, [...] eosinophilia documented in this encounter Care Teams Senior Reservations Agent Relationship Specialty Start Date End Date Enrico Mccauley MD [address] [place] [address] PCP - General Family Medicine 08/19/19 documented as of this encounter
--- OUTSIDE RECORDS SUMMARY | 2023-07-25 04:09 | External Medical Summary | Summary of Care ---
Author Name Unknown Organization [facility] Address [address] [facility] [place] [address] Phone [phone] Care Team Providers Care Press Writer Name Role Phone Enrico Mccauley MD Primary Care Provider [phone] [phone] Encounter Details Date Type Department Care Team Description 02/08/2023 Nurse Only Pulmonary Medicine, [facility] [address] [facility] [place] [address] Gw, Nurse Pulmonary [address] [facility] [place] [address] Arrived Allergies Active Allergy Reactions Severity Noted Date Comments Gianluca Inhibitors Cough 06/12/2016 Cat Dander 03/31/2020 Ragweed 02/16/2020 Per patient's he is allergic to all weeds, trees, grasses documented as of this encounter (statuses as of 02/08/2023) Medications Medication Sig Dispensed Refills Start Date End Date Status ASPIRIN 81 MG PO TABS one tablet daily 0 Active Blood Glucose Monitoring Suppl (OwnersAbroad.orgTOUCH ULTRA SYSTEM) W/DEVICE KITIndications:Type 2 diabetes mellitus [...] HCl 0.1 % nasal spray Administer 1 [place] into nostril 2 times a day. 30 [...] 15 minutes 25 Tab 11 01/12/2021 Active amLODIPine Besylate 5 MG Oral Tablet (Norvasc)Indications :HTN, goal below 140/90 TAKE 1 TABLET BY MOUTH ONCE DAILY 90 Tablet 3 02/26/2022 Active Mometasone Furoate 50 MCG/ACT Nasal SuspensionIndication s:Chronic rhinitis Administer into each nostril 2 Sprays daily . 51 g 11 04/12/2022 Active SUMAtriptan Succinate 25 MG Oral Tablet (Imitrex)Indications :Migraine variant take 2 tablets by mouth at onset of migraine, and 1 tablet every 2 hours if needed; not more than 5 tablets in 24 hours 6 Tablet 11 04/16/2022 Active Omeprazole 20 MG Oral Capsule Delayed Release (PriLOSEC) TAKE 1 CAPSULE BY MOUTH TWICE DAILY; take 30 minutes before a meal 180 Capsule 1 05/28/2022 Active Vitamin B-12 1000 MCG Oral Tablet TAKE 1 TABLET BY MOUTH ONCE DAILY 100 Tablet 2 06/07/2022 Active Levothyroxine Sodium 100 MCG Oral Tablet (Levoxyl)Indications :Acquired hypothyroidism TAKE 1 TABLET BY MOUTH ONCE DAILY 90 Tablet 2 06/12/2022 Active glipiZIDE 5 MG Oral Tablet (Glucotrol) [...] 4 WEEKS 2 mL 6 08/03/2022 Active Arnuity Ellipta 100 MCG/ACT Inhalation Aerosol Powder Breath Activated (fluticasone Furoate)Indications: Eosinophilic asthma inhale 1 puff by mouth once daily - rinse mouth after use 90 Each 2 08/14/2022 Active predniSONE 5 MG Oral Tablet (Deltasone) Take 1 Tablet by mouth in the morning. 90 Tablet 3 08/15/2022 Active Doxazosin Mesylate 2 MG Oral Tablet (Cardura)Indications :Urinary frequency TAKE 1 TABLET BY MOUTH EVERY EVENING 90 Tablet 3 08/21/2022 Active Breo Ellipta 200-25 MCG/ACT Inhalation Aerosol Powder Breath Activated (fluticasone furoate-vilanterol)I ndications:Severe persistent asthma dependent on systemic steroids INHALE ONE PUFF BY MOUTH IN THE MORNING 180 Blister Dosing Unit 1 09/02/2022 Active Montelukast Sodium 10 MG Oral Tablet [...] DAY NEEDED. 360 mL 5 10/28/2022 Active Sodium Chloride 3 % Inhalation Nebulization Solution Inhale 4 mL via nebulizer in the morning and 4 mL before bedtime. 45 mL 2 11/05/2022 Active Zoster Vac Recomb Adjuvanted 50 MCG/0.5ML Intramuscular Suspension Reconstituted (Shingrix)Indication s:Need for shingles vaccine Inject 0.5 mL into a large muscle now and repeat dose in 60 to 180 days 1 Each 1 11/21/2022 Active Hospital, Clinic, or Other Facility Administered Medication Ordered Dose Route Frequency Start Date End Date Status omalizumab (XOLAIR) inj 150 mgIndications:Poorly controlled severe persistent asthma with acute exacerbation 150 mg SC [id number] 05/13/2020 Active omalizumab (XOLAIR) inj 150 mgIndications:Poorly controlled severe persistent asthma with acute exacerbation 150 mg SC [id number] 05/13/2020 Active documented as of this encounter (statuses as of 02/08/2023) Active Problems Problem Noted Date 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 Gastroesophageal reflux disease without esophagitis 07/10/2022 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 07/10/2022 Obesity, Class I, BMI 30.0-34.9 (see act ual BMI) 02/05/2022 Chronic heart failure with preserved eje ction fraction 02/05/2022 Restrictive lung disease 12/21/2020 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 09/21/2020 Mild aortic stenosis 05/31/2020 Migraine [...] as of this encounter (statuses as of 02/08/2023) Resolved Problems Problem Noted Date Resolved Date [...] as of this encounter (statuses as of 02/08/2023) Immunizations Name Administration Dates Next Due COVID-19 mRNA, LNP-s, No Pre serve, 2-Dose Series (Moderna) 11/08/2020,10/08/2020 Pneumococcal Conjugate Vacc, 13 Valent (Prevnar) 08/17/2014 Pneumococcal Polysaccharide PPV23 (Pneumovax) 10/12/2011,04/08/2009(Deferred: Patient Refused) Seasonal Influenza, Quadriva lent Hd (Fluzone Hd) 06/02/2022 Seasonal Influenza, Quadriva lent, No Preserve, 6 Mons & Above, IM 05/06/2019,05/19/2018,06/06/2017 Seasonal Influenza, Quadriva lent, No Preserve, Adjuvanted, 65+ Yrs, IM 05/09/2020 Seasonal Influenza, Quadriva lent, No Preserve, IM [...] Sign Reading Time Taken Comments Blood Pressure - - Pulse 95 02/08/2023 2:56 PM EDT Temperature 36.9 C (98.5 F) 02/08/2023 2:56 PM ED T Respiratory Rate 16 02/08/2023 2:56 PM EDT Oxygen Saturation 93% 02/08/2023 2:56 PM EDT Inhaled Oxygen Concentration - - Weight - - Height - - Body Mass Index - - documented in this encounter Plan of Treatment Upcoming Encounters Date Type Specialty Care Team Description 05/24/2023 Office Visit Family Medicine Enrico Mccauley MD [address] [place] [address] Scheduled Procedures Name Priority Associated Diagnoses Date/Ti me COLONOSCOPY FLEXIBLE PROXIMAL DIAGNOSTIC Recall History of colon polyps Health Maintenance Due Date Last Done Comments Hepatitis C Screening 1963 Zoster Vaccines (1 of 2) 06/13/2012 04/18/2012 DIABETES-EYE EXAM 03/20/2019 03/20/2018, 10/21/2015 COVID-19 Vaccine (3 - Moderna risk series) 12/06/2020 11/08/2020, 10/08/2020 Depression Screening, Annual for Pts 12 and Over 04/15/2021 04/15/2020 COLONOSCOPY-EVERY 5 YRS AGES 18-100 02/19/2022 02/19/2017, 12/15/2013, 12/15/2013 Influenza Vaccine (FLU shot) (#1) 2023 06/02/2022, 05/09/2020, 05/06/2019, Additional history exists HbA1c 05/23/2023 11/21/2022, 06/28, 02/05/2022, Additional history exists GFR 05/29/2023 05/29/2022, 02/27, 12/14/2019, Additional history exists TSH 05/29/2023 05/29/2022, 02/27, 05/06/2019, Additional history exists DIABETES-FOOT EXAM 07/10/2023 07/10/2022, 0 04/15/2020, 03/23/2019, Additional history [...] (XOLAIR) inj 150 mg 150 mg, Subcutaneous, [id number], First dose on Sat05/13/20 at 1315, Until Discontinued, TOTAL DOSE = 150 mg Given 02/08/2023 2:59 PM EDT 150 mg Arm Right Upper Given 12/26/2022 10:24 AM EDT 150 mg A rm Right Upper Given 10/26/2022 12:50 PM EDT 150 mg A rm Right Upper omalizumab (XOLAIR) inj 150 mg 150 mg, Subcutaneous, [id number], First dose on Sat05/13/20 at 1315, Until Discontinued, TOTAL DOSE = 150 mg Given 02/08/2023 2:58 PM EDT 150 mg Arm Left Upper Given 12/26/2022 10:23 AM EDT 150 mg A rm Left Upper Given 10/26/2022 12:49 PM EDT 150 mg A rm Left Upper documented in this encounter Care Teams Press Writer Relationship Specialty Start Date End Date Enrico Mccauley MD [address] [place] [address] PCP - General Family Medicine 08/19/19 documented as of this encounter
--- OUTSIDE RECORDS SUMMARY | 2023-07-25 04:09 | External Medical Summary | Summary of Care ---
Author Name Unknown Organization [facility] Address [address] [facility] [place] [address] Phone [phone] Care Team Providers Care Cane Furniture Maker Name Role Phone Enrico Mccauley MD Primary Care Provider [phone] [phone] Encounter Details Date Type Department Care Team Description 03/25/2023 Nurse Only Pulmonary Medicine, [facility] 132 [facility] [place] [address] Gw, Nurse Pulmonary 132 [facility] [place] [address] Arrived Allergies Active Allergy Reactions Severity Noted Date Comments Gianluca Inhibitors Cough 06/12/2016 Cat Dander 03/31/2020 Ragweed 02/16/2020 Per patient's he is allergic to all weeds, trees, grasses documented as of this encounter (statuses as of 03/25/2023) Medications Medication Sig Dispensed Refills Start Date End Date Status ASPIRIN 81 MG PO TABS one tablet daily 0 Active Blood Glucose Monitoring Suppl (SHADOTOUCH ULTRA SYSTEM) W/DEVICE KITIndications:Type 2 diabetes mellitus [...] HCl 0.1 % nasal spray Administer 1 [place] into nostril 2 times a day. 30 [...] goal of less than 8.0% ([facility]) Use up to four times daily [...] A MEAL 180 Capsule 1 02/20/2023 Active Hospital, Clinic, or Other Facility Administered Medication Ordered Dose Route Frequency Start Date End Date Status omalizumab (XOLAIR) inj 150 mgIndications:Poorly controlled severe persistent asthma with acute exacerbation 150 mg SC [id number] 05/13/2020 Active omalizumab (XOLAIR) inj 150 mgIndications:Poorly controlled severe persistent asthma with acute exacerbation 150 mg SC [id number] 05/13/2020 Active documented as of this encounter (statuses as of 03/25/2023) Active Problems Problem Noted Date Neuromuscular respiratory [...] as of this encounter (statuses as of 03/25/2023) Resolved Problems Problem Noted Date Resolved Date Bronchiectasis with acute exacerbation 11/21/2022 Personal history of Pseudomonas pneumonia 202111/21/2022 [...] as of this encounter (statuses as of 03/25/2023) Immunizations Name Administration Dates Next Due COVID-19 mRNA, LNP-s, No Pre serve, 2-Dose Series (Moderna) 11/08/2020,10/08/2020 Pneumococcal Conjugate Vacc, 13 Valent (Prevnar) 08/17/2014 Pneumococcal Polysaccharide PPV23 (Pneumovax) 10/12/2011,04/08/2009(Deferred: Patient Refused) Season Influenza, Quad, PF, Adjuvanted, 65+ Yrs, IM (FLUAD) 05/09/2020 Seasonal Influenza, PF, 6 mo ns & Above, IM , (Flulaval) 05/06/2019,05/19/2018,06/06/2017 Seasonal Influenza, Quadriva lent Hd (Fluzone [...] Date Smoking Tobacco: Never Smokeless Tobacco: Never Tobacco Cessation:Counseling Given: Not Answered Alcohol Use Standard Drinks/Week Comments No 0 [...] Sign Reading Time Taken Comments Blood Pressure 128/74 03/25/2023 10:53 AM EDT Pulse 93 03/25/2023 10:53 AM EDT Temperature - - Respiratory Rate 16 03/25/2023 10:53 AM EDT Oxygen Saturation 94% 03/25/2023 10:53 AM EDT Inhaled Oxygen Concentration - - Weight 78.9 kg (174 lb) 03/25/2023 10:53 AM EDT Height - - Body Mass Index 31.83 11/21/2022 8:56 AM EDT documented in this encounter Plan of Treatment Upcoming Encounters Date Type Specialty Care Team Description 05/24/2023 Office Visit Family Medicine [place], Enrico Carbajal MD [address] [place] [address] Scheduled Procedures Name Priority Associated Diagnoses Date/Ti [...] (XOLAIR) inj 150 mg 150 mg, Subcutaneous, [id number], First dose on Sat05/13/20 at 1315, Until Discontinued, TOTAL DOSE = 150 mg Given 03/25/2023 10:56 AM EDT 150 mg Arm Right Upper Given 02/08/2023 2:59 PM EDT 150 mg Ar m Right Upper Given 12/26/2022 10:24 AM EDT 150 mg A rm Right Upper omalizumab (XOLAIR) inj 150 mg 150 mg, Subcutaneous, [id number], First dose on Sat05/13/20 at 1315, Until Discontinued, TOTAL DOSE = 150 mg Given 03/25/2023 10:55 AM EDT 150 mg Arm Left Upper Given 02/08/2023 2:58 PM EDT 150 mg Ar m Left Upper Given 12/26/2022 10:23 AM EDT 150 mg A rm Left Upper documented in this encounter Care Teams Cane Furniture Maker Relationship Specialty Start Date End Date Enrico Mccauley MD [address] [place] [address] PCP - General Family Medicine 08/19/19 documented as of this encounter
--- OUTSIDE RECORDS SUMMARY | 2023-07-25 04:09 | External Medical Summary | Summary of Care ---
Author Name Unknown Organization [facility] [address] [facility] [address] Phone [phone] Care Team Providers Care Childcare Center Director Name Role Phone Shana Hamlin MD Primary Care Provider [phone] Reason for Visit * Reason Comments eRx-Medication Refill Encounter Details Date Type Department Care Team Description 02/19/2023 Refill Family Practice [facility] [address] [place] [address] Shana Hamlin MD [address] [place] [address] Allergies Active Allergy Reactions Severity Noted Date Comments Gianluca Inhibitors Cough 06/12/2016 Cat Dander 03/31/2020 Ragweed 02/16/2020 Per patient's he is allergic to all weeds, trees, grasses documented as of this encounter (statuses as of 02/20/2023) Medications Medication Sig Dispensed Refills Start Date End Date Status ASPIRIN 81 MG PO TABS one tablet daily 0 Active Blood Glucose Monitoring Suppl (ONETOUCH ULTRA SYSTEM) W/DEVICE KITIndications:Type 2 diabetes mellitus with hemoglobin A1c goal of less than 7.5% ([facility]) Use as directed 2 times a day. E11.9 1 Kit 0 6 Active ONETOUCH DELICA LANCETS 33G MISCIndications:Typ e 2 diabetes mellitus with hemoglobin A1c goal of less than 7.5% ([facility]) USE DIRECTED TWICE DAILY. USE UP TO FOUR TIMES A DAY DIRECTED. 100 Each 10 8 Active Azelastine HCl 0.1 % nasal spray Administer 1 [place] into nostril 2 times a day. 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 90 Tablet 2 3 Active Benzonatate 100 MG Oral Capsule (Tessalon Perles) Take 1 Capsule by mouth 3 times a day as needed for Cough. 30 Capsule 0 3 Active [facility] Glucose Meter Test Strips In Vitro Strip (Glucose Blood)Indications:T ype 2 diabetes mellitus with hemoglobin A1c goal of less than 8.0% ([facility]) Use up to four times [...] DAY NEEDED. 360 mL 5 3 Active Zoster Vac Recomb Adjuvanted 50 MCG/0.5ML Intramuscular Suspension Reconstituted (Shingrix)Indicatio ns:Need for shingles vaccine Inject 0.5 mL into a large muscle now and repeat dose in 60 to 180 days 1 Each 1 3 Active amLODIPine Besylate 5 MG Oral Tablet (Norvasc)Indication s:HTN, goal below 140/90 Take 1 Tablet by mouth in the morning. 90 Tablet 1 3 Active Levothyroxine Sodium 100 MCG Oral Tablet (Levoxyl)Indication s:Acquired hypothyroidism Take 1 Tablet by mouth in the morning. (at least 30 min prior to breakfast or other meds). 90 Tablet 1 3 Active Sodium Chloride 3 % Inhalation Nebulization Solution Inhale 4 mL via nebulizer in the morning and 4 mL before bedtime. 45 mL 2 3 Active Breo Ellipta 200-25 MCG/ACT Inhalation Aerosol Powder Breath Activated (fluticasone furoate-vilanterol) Indications:Severe persistent asthma dependent on systemic steroids INHALE ONE PUFF BY MOUTH IN THE MORNING 180 Each 1 3 Active Omeprazole 20 MG Oral Capsule Delayed Release (PriLOSEC) TAKE 1 CAPSULE BY MOUTH TWICE DAILY 30 MINUTES BEFORE A MEAL 180 Capsule 1 3 Active Omeprazole 20 MG Oral Capsule Delayed Release (PriLOSEC) TAKE 1 CAPSULE BY MOUTH TWICE DAILY; take 30 minutes before a meal 180 Capsule 1 2 02/21/20 23 Discontinued Hospital, Clinic, or Other Facility Administered Medication Ordered Dose Route Frequency Start Date End Date Status omalizumab (XOLAIR) inj 150 mgIndications:Poorly controlled severe persistent asthma with acute exacerbation 150 mg SC [id number] 05/13/2020 Active omalizumab (XOLAIR) inj 150 mgIndications:Poorly controlled severe persistent asthma with acute exacerbation 150 mg SC [id number] 05/13/2020 Active documented as of this encounter (statuses as of 02/20/2023) Active Problems Problem Noted Date Neuromuscular respiratory [...] as of this encounter (statuses as of 02/20/2023) Resolved Problems Problem Noted Date Resolved Date [...] as of this encounter (statuses as of 02/20/2023) Immunizations Name Administration Dates Next Due COVID-19 [...] encounter Miscellaneous Notes * Telephone Encounter - Joanne Cornejo, [facility] - 02/20/2023 12:49 PM EDT Signed Prescriptions: Disp Refills Omeprazole 20 MG Oral Capsule Delayed Rele*180 Ca*1 Sig: TAKE 1 CAPSULE BY MOUTH TWICE DAILY 30 MINUTES BEFORE A MEALAuthorizing Provider: SHANA HAMLIN User: JOANNE CORNEJO documented in this encounter Plan of Treatment Upcoming Encounters Date Type Specialty Care Team Description 05/24/2023 Office Visit Family Medicine Shana Hamlin MD [address] [place] [address] Scheduled Procedures Name Priority Associated Diagnoses Date/Ti [...] filedocumented as of this encounter Care Teams Childcare Center Director Relationship Specialty Start Date End Date Shana Hamlin MD [address] [place] [address] PCP - General Family Medicine 08/19/19 documented as of this encounter
--- OUTSIDE RECORDS SUMMARY | 2023-07-25 04:09 | External Medical Summary | Summary of Care ---
Author Name Unknown Organization [facility] Address [address] [facility] [place] [address] Phone [phone] Care Team Providers Care City Magistrate Name Role Phone Shana Hamlin MD Primary Care Provider [phone] Reason for Visit * Reason Onset Date Comments Medication Refill 02/09/2023 Encounter Details Date Type Department Care Team Description 02/09/2023 Refill Family Practice [facility] [address] [place] [address] Shana Hamlin MD [address] [place] [address] HTN, goal below 140/90; Acquired hypothyroidism Allergies Active Allergy Reactions Severity Noted Date Comments Gianluca Inhibitors Cough 06/12/2016 Cat Dander 03/31/2020 Ragweed 02/16/2020 Per patient's he is allergic to all weeds, trees, grasses documented as of this encounter (statuses as of 02/12/2023) Medications Medication Sig Dispensed Refills Start Date End Date Status ASPIRIN 81 MG PO TABS one tablet daily 0 Active Blood Glucose Monitoring Suppl (ONETOUCH ULTRA SYSTEM) W/DEVICE KITIndications:Type 2 diabetes mellitus with hemoglobin A1c goal of less than 7.5% ([facility]) Use as directed 2 times a day. E11.9 1 Kit 0 07/27/2016 Active ONETOUCH DELICA LANCETS 33G MISCIndications:Typ e 2 diabetes mellitus with hemoglobin A1c goal of less than 7.5% ([facility]) USE DIRECTED TWICE DAILY. USE UP TO FOUR TIMES A DAY DIRECTED. 100 Each 10 09/26/2017 Active Azelastine HCl 0.1 % nasal spray Administer 1 [place] into nostril 2 times a day. 30 [...] goal of less than 8.0% ([facility]) Use up to four times daily [...] before bedtime. 45 mL 2 02/11/2023 Active amLODIPine Besylate 5 MG Oral Tablet (Norvasc)Indication s:HTN, goal below 140/90 TAKE 1 TABLET BY MOUTH ONCE DAILY 90 Tablet 3 02/26/2022 3 Discontinu ed(Refill) Levothyroxine Sodium 100 MCG Oral Tablet (Levoxyl)Indication s:Acquired hypothyroidism TAKE 1 TABLET BY MOUTH ONCE DAILY 90 Tablet 2 06/12/2022 3 Discontinu ed(Refill) Hospital, Clinic, or Other Facility Administered Medication Ordered Dose Route Frequency Start Date End Date Status omalizumab (XOLAIR) inj 150 mgIndications:Poorly controlled severe persistent asthma with acute exacerbation 150 mg SC [id number] 05/13/2020 Active omalizumab (XOLAIR) inj 150 mgIndications:Poorly controlled severe persistent asthma with acute exacerbation 150 mg SC [id number] 05/13/2020 Active documented as of this encounter (statuses as of 02/12/2023) Active Problems Problem Noted Date 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 Gastroesophageal reflux disease without esophagitis 07/10/2022 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 07/10/2022 Obesity, Class I, BMI 30.0-34.9 (see act ual BMI) 02/05/2022 Chronic heart failure with preserved eje ction fraction 02/05/2022 Restrictive lung disease 12/21/2020 Severe persistent asthma 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 09/21/2020 Mild aortic stenosis 05/31/2020 Migraine [...] as of this encounter (statuses as of 02/12/2023) Resolved Problems Problem Noted Date Resolved Date [...] as of this encounter (statuses as of 02/12/2023) Immunizations Name Administration Dates Next Due COVID-19 [...] Miscellaneous Notes * Telephone Encounter - Shana Lizama RPh - 02/12/2023 9:31 AM EDT Signed Prescriptions: Disp Refills amLODIPine Besylate 5 MG Oral Tablet (Norv*90 Tab*1 Sig: Take 1 Tablet by mouth in the morning.Authorizing Provider: SHANA HAMLIN User: SHANA LIZAMA Levothyroxine Sodium 100 MCG Oral Tablet (*90 Tab*1 Sig: Take 1 Tablet by mouth in the morning. (at least 30 min prior to breakfast or other meds).Authorizing Provider: SHANA HAMLIN User: SHANA LIZAMA documented in this encounter Plan of Treatment Upcoming Encounters Date Type Specialty Care Team Description 05/24/2023 Office Visit Family Medicine Shana Hamlin MD [address] [place] [address] Scheduled Procedures Name Priority Associated Diagnoses Date/Ti [...] as of this encounter Visit Diagnoses Diagnosis HTN, goal below 140/90 Unspecified essential hypertension Acquired hypothyroidism Unspecified hypothyroidism documented in this encounter Care Teams City Magistrate Relationship Specialty Start Date End Date Shana Hamlin MD [address] [place] [address] PCP - General Family Medicine 08/19/19 documented as of this encounter
--- OUTSIDE RECORDS SUMMARY | 2023-07-25 04:09 | External Medical Summary | Summary of Care ---
Author Name Unknown Organization [facility] Address [address] [facility] [address] Phone [phone] Care Team Providers Care Backing In Machine Tender Name Role Phone Shana Hamlin MD Primary Care Provider [phone] Reason for Visit * Reason Comments eRx-Medication Refill Encounter Details Date Type Department Care Team Description 05/05/2023 Refill Family Practice [facility] [address] [place] [address] Shana Hamlin MD [address] [place] [address] Allergies Active Allergy Reactions Severity Noted Date Comments Gianluca Inhibitors Cough 06/12/2016 Cat Dander 03/31/2020 Ragweed 02/16/2020 Per patient's he is allergic to all weeds, trees, grasses documented as of this encounter (statuses as of 05/06/2023) Medications Medication Sig Dispensed Refills Start Date End Date Status ASPIRIN 81 MG PO TABS one tablet daily 0 Active Blood Glucose Monitoring Suppl (ONETOUCH ULTRA SYSTEM) W/DEVICE KITIndications:Type 2 diabetes mellitus with hemoglobin A1c goal of less than 7.5% ([facility]) Use as directed 2 times a day. E11.9 1 Kit 0 6 Active ONETOUCH DELICA LANCETS 33G MISCIndications:Typ e 2 diabetes mellitus with hemoglobin A1c goal of less than 7.5% ([facility]) USE DIRECTED TWICE DAILY. USE UP TO FOUR TIMES A DAY DIRECTED. 100 Each 10 8 Active Azelastine HCl 0.1 % nasal spray Administer 1 [place] into nostril 2 times a day. 30 [...] goal of less than 8.0% ([facility]) Use up to four times [...] BEFORE BEDTIME 240 mL 0 3 Active Sodium Chloride 3 % Inhalation Nebulization Solution Inhale 4 mL via nebulizer in the morning and 4 mL before bedtime. 45 mL 2 3 05/06/20 23 Discontinued Hospital, Clinic, or Other Facility Administered Medication Ordered Dose Route Frequency Start Date End Date Status omalizumab (XOLAIR) inj 150 mgIndications:Poorly controlled severe persistent asthma with acute exacerbation 150 mg SC [id number] 05/13/2020 Active omalizumab (XOLAIR) inj 150 mgIndications:Poorly controlled severe persistent asthma with acute exacerbation 150 mg SC [id number] 05/13/2020 Active documented as of this encounter (statuses as of 05/06/2023) Active Problems Problem Noted Date Neuromuscular respiratory [...] as of this encounter (statuses as of 05/06/2023) Resolved Problems Problem Noted Date Resolved Date [...] as of this encounter (statuses as of 05/06/2023) Immunizations Name Administration Dates Next Due COVID-19 [...] Telephone Encounter - Shana Hamlin MD - 05/06/2023 8:00 AM EDTSigned Prescriptions: Disp Refills Sodium Chloride 3 % Inhalation Nebulizatio*240 mL 0 Sig: INHALE 4 ML VIA NEBULIZER IN THE MORNING AND 4 ML BEFORE BEDTIME Authorizing Provider: SHANA HAMLIN * Telephone Encounter - Abigail León LPN - 05/06/2023 7:48 AM EDTPending Prescriptions: Disp Refills Sodium Chloride 3 % Inhalation Nebulizatio*240 mL 0 Sig: Inhale 4 mL via nebulizer in the morning and 4 mL before bedtime. * Telephone Encounter - Abigail León LPN - 05/06/2023 7:47 AM EDT Did you pend patient's preferred pharmacy and medication before forwarding?yes Pharmacy: [id number] [facility] [place] [place] Pending Prescriptions: Disp Refills Sodium Chloride 3 % Inhalation Nebulizati*240 mL 0 Sig: INHALE 4 ML VIA NEBULIZER IN THE MORNING AND 4 ML BEFORE BEDTIME Last Visit: 11/21/2022 (in office), Visit date not found (telemedicine) Next Visit: 05/24/2023 If no future appointments scheduled, and last appointment is greater than a year ago, please schedule patient for a follow-up appointment Last date the medication was ordered: 02/11/2023 Is this request for a controlled substance?No [...] * Telephone Encounter - Zhang Tucker - 05/05/2023 10:10 AM EDTPending Prescriptions: Disp Refills Sodium Chloride 3 % Inhalation Nebulizatio*240 mL 0 Sig: Inhale4 mL via nebulizer in the morning and 4 mL before bedtime. documented in this encounter Plan of Treatment Upcoming Encounters Date Type Specialty Care Team Description 05/24/2023 Office Visit Family Medicine Shana Hamlin MD [address] [place] [address] Scheduled Procedures Name Priority Associated Diagnoses Date/Ti [...] filedocumented as of this encounter Care Teams Backing In Machine Tender Relationship Specialty Start Date End Date Shana Hamlin MD [address] [place] [address] PCP - General Family Medicine 08/19/19 documented as of this encounter
--- OUTSIDE RECORDS SUMMARY | 2023-07-25 04:09 | External Medical Summary | Summary of Care ---
Author Name Unknown Organization [facility] Address [address] [facility] [place] [address] Phone [phone] Care Team Providers Care Chief Engineer Production Name Role Phone Enrico Mccauley MD Primary Care Provider [phone] [phone] Reason for Visit * Reason Onset Date Comments Encounter Created in Error 04/26/2023 Encounter Details Date Type Department Care Team Description 04/26/2023 Telephone Pulmonary Medicine, [facility] [address] [place] [address] Carla Cordero CRNP [address] [place] [address] Encounter Created in Error Allergies Active Allergy Reactions Severity Noted Date Comments Gianluca Inhibitors Cough 06/12/2016 Cat Dander 03/31/2020 Ragweed 02/16/2020 Per patient's he is allergic to all weeds, trees, grasses documented as of this encounter (statuses as of 04/26/2023) Medications Medication Sig Dispensed Refills Start Date End Date Status ASPIRIN 81 MG PO TABS one tablet daily 0 Active Blood Glucose Monitoring Suppl (ONETOUCH ULTRA SYSTEM) W/DEVICE KITIndications:Type 2 diabetes mellitus with hemoglobin A1c goal of less than 7.5% ([facility]) Use as directed 2 times a day. E11.9 1 Kit 0 07/27/2016 Active ONETOUCH DELICA LANCETS 33G MISCIndications:Type 2 diabetes mellitus with hemoglobin A1c goal of less than 7.5% ([facility]) USE DIRECTED TWICE DAILY. USE UP TO FOUR TIMES A DAY DIRECTED. 100 Each 10 09/26/2017 Active Azelastine HCl 0.1 % nasal spray Administer 1 [place] into nostril 2 times a day. 30 [...] hemoglobin A1c goal of less than 8.0% ([facility]) Use up to four times [...] asthma with acute exacerbation 150 mg SC [id number] 05/13/2020 Active omalizumab (XOLAIR) inj 150 mgIndications:Poorly controlled severe persistent asthma with acute exacerbation 150 mg SC [id number] 05/13/2020 Active documented as of this encounter (statuses as of 04/26/2023) Active Problems Problem Noted Date Neuromuscular respiratory [...] as of this encounter (statuses as of 04/26/2023) Resolved Problems Problem Noted Date Resolved Date [...] as of this encounter (statuses as of 04/26/2023) Immunizations Name Administration Dates Next Due COVID-19 [...] encounter Miscellaneous Notes * Telephone Encounter - Berta Stephens LPN - 04/26/2023 8:25 AM EDT Duplicate. documented in this encounter Plan of Treatment Upcoming Encounters Date Type Specialty Care Team Description 05/24/2023 Office Visit Family Medicine Enrico Mccauley MD [address] [place] [id number] Scheduled Procedures Name Priority Associated Diagnoses Date/Ti [...] filedocumented as of this encounter Care Teams Chief Engineer Production Relationship Specialty Start Date End Date Enrico Mccauley MD [address] [place] [address] PCP - General Family Medicine 08/19/19 documented as of this encounter
[2023-07-25] MEDS ORDERED: methylPREDNISolone 125 MG/2 ML VIAL IV STA (04:17)
[2023-07-25] MEDS ORDERED: ALBUT/IPRATROP 3MG/0.5MG NEB 3 ML VIAL INH STA (04:17)
[2023-07-25] MEDS ORDERED: SODIUM CHLORIDE 0.9% 1,000 ML IV SCH ×2 (04:30→08:18)
--- NOTE | 2023-07-25 04:32 | Emergency Department Note ---
Impression & Plan Acute hypoxic respiratory failure, Influenza A, Shortness of breath ED Provider Note CHIEF COMPLAINT: Shortness of breath HISTORY OF PRESENT ILLNESS: This 78-year-old male patient presents to the emergency department via private vehicle for evaluation of shortness of breath. Patient's provides majority of the history, as the patient is having difficulty speaking. Patient's notes that over the past 2 to 3 days, he has had some coughing, congestion, and increasing shortness of breath. The patient does have a history of severe asthma and has not been on his Xolair injection this month. Patient has been using all other inhalers and medications as prescribed as well as DuoNeb treatments, but this evening developed sudden/worsening shortness of breath prompting him to wake his and come to the emergency department. The patient generally sleeps in a recliner. Patient has not had a fever. No nausea or vomiting. No chest pain. No coughing up blood. REVIEW OF SYSTEMS: A 10 system review of systems was performed with positives and pertinent negatives listed in the history of present illness. All other systems were reviewed and are negative. ALLERGIES: SUJATHA inhibitor PHYSICAL EXAM: VITALS: Vitals are noted on the nurse's note and reviewed by myself. O2 saturation 89% on room air. The patient is tachycardic GENERAL: This is a 78-year-old male, in no acute distress, nondiaphoretic, well- developed well-nourished. SKIN: The skin was without rashes, erythema, edema, or bruising. There is no tenting of the skin. Capillary refill less than 2 seconds. HEAD: Normocephalic atraumatic. EARS: External auditory canals clear, tympanic membranes pearly spencer without erythema or effusion bilaterally. No hemotympanum. Negative franco sign EYES: Pupils equal round and reactive to light and accommodation. Conjunctivae without injection, sclerae without icterus. Extraocular movements intact. NOSE: Patent, turbinates without inflammation or discharge. No sinus tenderness. MOUTH: Mucous membranes moist. Tonsils are not enlarged. Pharynx without erythema or exudate. Uvula midline. Airway patent. Tongue does not deviate. NECK: Supple without nuchal rigidity. No lymphadenopathy. No JVD. HEART: Regular rate and rhythm without murmurs gallops or rubs. LUNGS: Diffuse wheezing and rhonchi bilaterally. No retractions or accessory muscle use. ABDOMEN: Positive bowel sounds x 4. Soft, nontender, without masses or organomegaly. Harrington sign negative. No guarding or rebound tenderness. MUSCULOSKELETAL: No muscle atrophy, erythema, or edema noted. Full range of motion without joint tenderness in all extremities. No tenderness to palpation. Normal gait. Strength 5/5 throughout. NEURO: Patient was alert and oriented to person place and time. No focal neurological deficits. An order was placed for continuous cardiac rehab nurse. The monitor showed a sinus tachycardia at a ventricular rate of 128 bpm, per my interpretation. EMERGENCY DEPARTMENT COURSE: The patient was seen and evaluated as above. IV access was obtained, labs were drawn. Patient presents with worsening shortness of breath. The patient is hypoxic and tachycardic on initial evaluation. Patient was hydrated with IV fluids. He was medicated with Solu-Medrol and DuoNeb treatment. Labs were reviewed. There was a leukocytosis of 12,000. No anemia or thrombocytopenia. INR 1.0. Renal, hepatic function and electrolytes without significant abnormality. Blood glucose elevated 157. Troponin mildly elevated at 47.9. BNP 40. Respiratory bio fire testing positive for influenza A Chest x-ray, per my interpretation: No consolidation. The patient was reassessed. He notes he is feeling very fatigued. He is feeling slightly better than before, but still with increased work of breathing and sensation of shortness of breath. Patient did get up to go to the bathroom. O2 saturation on room air with this limited ambulatory trial remained at 90%. I discussed the case with my attending physician. I discussed the case with Dr. Bauer, [facility] hospitalist physician. He did agree to see and evaluate the patient for admission due to hypoxia and acute respiratory failure with O2 saturation 89% on room air in the setting of influenza infection. Please see hospitalist dictation regarding ongoing management care of this patient. Differential diagnosis includes Reactive airway disease, pneumonia, pneumothorax, COPD, CHF, infections, cardiac ischemia, pulmonary embolism, musculoskeletal, gastrointestinal, as well as other pathologies. I attest that I have personally reviewed the patient's current medication list. Patient was found to have an elevated blood pressure and was referred to their primary doctor for recheck and further treatment. The chart was completed utilizing [employer] voice recognition software. Grammatical errors, random word insertions, pronoun errors, and incomplete sentences are an occasional consequence of this system due to software limitations, ambient noise, and hardware issues. Any formal questions or concerns about the content, text, or information contained within the body of this dictation should be directly addressed to the provider for clarification. Past Med/Surg History Medical History Obstructive sleep apnea (adult) (pediatric) Asthma exacerbation Osteoarthritis Chronic back pain GERD (gastroesophageal reflux disease) Hypothyroidism Diabetes mellitus, type 2 NIDDM Chronic steroid use COPD Chronic headaches Hypertension Hyperlipidemia Pneumonia annually. last 11/2019. Asthma H. pylori infection hx Surgical History History of colonoscopy History of shoulder surgery left History of tonsillectomy History of tooth extraction Family History Mother Diabetes Father Diabetes Emphysema of lung Sister Diabetes Other No family history of adverse response to anesthesia Social History Smoking Status: Never smoker Second Hand Exposure: Yes ( A CHILD); Do You Dip or Chew Tobacco: No; Hx Alcohol Use: No Hx Substance Use: No Preferred Language: Moldovan Communication Ability: Effective Odd Bundle Worker Required: No Beliefs That Will Affect Care: None marital status: Current Living Situation: Spouse current occupational status: retired Feels Safe at Home: Yes Assistive Devices: Cane Allergies Allergies Allergy/AdvReac Type Severity Reaction Status Date / Time cat dander Allergy Unknown watery eyes Verified 06/27/20 06:16 No Known Drug Allergies Allergy Unknown . Verified 06/27/20 06:16 SUJATHA Inhibitors AdvReac Mild Cough Verified 06/27/20 06:16 Home Meds Home Medications Medication Instructions Recorded Confirmed azelastine 205.5 mcg (0.15 %) 1 spray intranasal BID 06/29/19 07/02/22 nasal spray budesonide 1 mg/2 mL suspension 1 mg inhalation QAM 06/29/19 07/02/22 for nebulization (Pulmicort) cetirizine 10 mg tablet 10 mg PO DAILY PRN Allergy Symptoms 06/29/19 07/02/22 doxazosin 2 mg tablet 2 mg PO HS 06/29/19 07/02/22 ipratropium 0.5 mg-albuterol 3 mg 3 ml inhalation QID PRN Shortness 12/05/19 07/02/22 (2.5 mg base)/3 mL nebulization Of Breath soln amlodipine 5 mg tablet 7.5 mg PO QAM 05/27/20 07/02/22 aspirin 81 mg tablet,delayed 81 mg PO QAM 05/27/20 07/02/22 release (Demarco Low Dose Aspirin) atorvastatin 10 mg tablet 20 mg PO HS 05/27/20 07/02/22 fluticasone furoate 200 1 inh inhalation QAM 05/27/20 07/02/22 mcg-vilanterol 25 mcg/dose inhalation powder (Breo Ellipta) levothyroxine 100 mcg tablet 100 mcg PO QAM 05/27/20 07/02/22 montelukast 10 mg tablet 10 mg PO QPM 05/27/20 07/02/22 omeprazole 20 mg capsule,delayed 20 mg PO QAM 05/27/20 07/02/22 release sumatriptan succinate 25 mg tablet 25 mg PO UD PRN Headache 05/27/20 07/02/22 (Imitrex) tiotropium bromide 18 mcg capsule 1 cap inhalation QPM 05/27/20 07/02/22 with inhalation device (Spiriva with HandiHaler) cyanocobalamin (vitamin B-12) 1,000 mcg PO DAILY 07/02/22 07/02/22 1,000 mcg tablet (Vitamin B-12) fluticasone furoate 100 1 inh inhalation DAILY 07/02/22 07/02/22 mcg/actuation blister powder for inhalation (Arnuity Ellipta) glipizide 5 mg tablet 5 mg PO BID 07/02/22 07/02/22 losartan 25 mg tablet 25 mg PO DAILY 07/02/22 07/02/22 Previous Rx's Medication Instructions Recorded albuterol sulfate 90 mcg/actuation 2 puff inhalation Q4H PRN 02/25/19 aerosol inhaler Shortness Of Breath #6.7 grams amoxicillin 875 mg-potassium 1 tab PO BID #7 tabs 07/04/22 clavulanate 125 mg tablet azithromycin 500 mg tablet 500 mg PO DAILY #1 tab 07/04/22 prednisone 10 mg tablet 10 mg PO DIRECTED #26 tabs 07/04/22 azithromycin 250 mg tablet See Rx Instructions PO .COMPLEX #6 03/06/23 (Zithromax Z-Duran) tabs benzonatate 200 mg capsule 200 mg PO TID PRN cough #20 caps 05/14/23 Results & Data (ED) Vital Signs Vital Signs - 24 hr 07/25/23 04:02 07/25/23 04:04 07/25/23 04:13 Temperature 36.8 C Temperature Source Temporal Artery Scan Pulse Rate 134 H 128 H Pulse Rhythm Respiratory Rate 16 Respiratory Effort / Characteristics Non-Labored Spontaneous Respiratory Depth Normal Blood Pressure 148/85 H Blood Pressure Mean 106 Pulse Oximetry 92 Oxygen Delivery Method Nasal Cannula Room Air Oxygen Flow Rate 2 Sepsis Recent Fever Within 48 Hours No Sepsis New/Unexplained Change in Mental Status No Sepsis Action Taken by Nursing No Action Required Oxygen Flow Rate - Titration Pulse Oximetry Post Tiitration 07/25/23 04:24 07/25/23 04:38 Temperature Temperature Source Pulse Rate 122 H Pulse Rhythm Regular Respiratory Rate 22 Respiratory Effort / Characteristics Respiratory Depth Blood Pressure Blood Pressure Mean Pulse Oximetry 96 89 L Oxygen Delivery Method Nasal Cannula Room Air Nasal Cannula Oxygen Flow Rate 2 0 Sepsis Recent Fever Within 48 Hours Sepsis New/Unexplained Change in Mental Status Sepsis Action Taken by Nursing Oxygen Flow Rate - Titration 2 Pulse Oximetry Post Tiitration 96 Laboratory Data 07/25/23 04:26 07/25/23 04:26 Lab Results 07/25/23 07/25/23 Range/Units 04:17 04:26 WBC 12.14 H (4.8-10.8) K/ul RBC 5.19 (4.70-6.10) M/uL Hgb 14.8 (14.0-18.0) g/dl Hct 43.1 (42.0-52.0) % MCV 83.0 (80.0-100.0) fL MCH 28.5 (25.0-34.0) pg MCHC 34.3 (32.0-36.0) g/dL RDW Std Deviation 42.1 (36.4-46.3) fL RDW Coeff of Zainab 13.9 (11.5-14.5) % Plt Count 263 (130-400) K/uL MPV 9.5 (9.4-12.4) fL Immature Gran % (Auto) 0.6 % Neut % (Auto) 82.6 % Lymph % (Auto) 7.6 % Guthrie % (Auto) 8.2 % Eos % (Auto) 0.5 % Baso % (Auto) 0.5 % Neut # (Auto) 10.04 H (1.40-6.50) K/uL Lymph # (Auto) 0.92 L (1.20-3.40) K/uL Guthrie # (Auto) 0.99 H (0.11-0.59) K/uL Eos # (Auto) 0.06 (0.00-0.50) K/uL Baso # (Auto) 0.06 (0.00-0.20) K/uL Immature Gran # (Auto) 0.07 (0.01-0.20) K/uL PT 11.4 (9.0-12.0) Seconds INR 1.0 (0.9-1.1) APTT 26 (21-31) Seconds PTT Ratio 0.9 Sodium 140 (136-145) mmol/L Potassium 3.5 (3.5-5.1) mmol/L Chloride 104 (98-107) mmol/L Carbon Dioxide 26 (21-32) mmol/L Anion Gap 10 (3-11) BUN 15 (6-23) mg/dl Creatinine 0.83 (0.6-1.4) mg/dl Est Cr Clr Drug Dosing 68.3 ml/min Est GFR ( Amer) 98.4 ml/min Est GFR (Non-Af Amer) 84.9 ml/min BUN/Creatinine Ratio 18.1 (10-20) Glucose 157 H (70-99(Fasting)) mg/dl Lactate 2.0 (0.4-2.0) mmol/L Calcium 9.1 (8.6-10.3) mg/dl Magnesium 1.7 (1.7-2.4) mg/dl Total Bilirubin 0.6 (0.2-1.0) mg/dl AST 13 (13-39) U/L ALT 23 (7-52) U/L Alkaline Phosphatase 41 (34-104) U/L Troponin I High Sens 47.9 H (0-20) pg/ml B-Natriuretic Peptide 40 (0-100) pg/ml Total Protein 7.3 (6.0-8.3) gm/dl Albumin 4.3 (3.4-5.0) gm/dl Globulin 3.0 (2.5-4.0) gm/dl Albumin/Globulin Ratio 1.4 (0.9-2) Nasal Influ A H1 2009 PCR DETECTED A* (NotDetected) Adenovirus (PCR) Not Detected (NotDetected) B. pertussis DNA (PCR) Not Detected (NotDetected) B.parapertussis DNA PCR Not Detected (NotDetected) C. pneumoniae DNA (PCR) Not Detected (NotDetected) Coronavirus OC43 (PCR) Not Detected (NotDetected) Coronavirus HKU1 (PCR) Not Detected (NotDetected) Coronavirus 229E (PCR) Not Detected (NotDetected) SARS-CoV-2 (PCR) Not Detected (NotDetected) Coronavirus NL63 (PCR) Not Detected (NotDetected) Human Metapneumovir PCR Not Detected (NotDetected) Influenza Type B (PCR) Not Detected (NotDetected) M. pneumoniae (PCR) Not Detected (NotDetected) Parainfluenza 1 (PCR) Not Detected (NotDetected) Parainfluenza 2 (PCR) Not Detected (NotDetected) Parainfluenza 3 (PCR) Not Detected (NotDetected) Parainfluenza 4 (PCR) Not Detected (NotDetected) RSV (PCR) Not Detected (NotDetected) Entero/Rhino (PCR) Not Detected (NotDetected) Administered Medications Discontinued Medications Albuterol (Albut/Ipratrop 3mg/0.5mg Neb 3 Ml Vial) 3 ml INH NOW STA Stop: 07/25/23 04:18 Last Admin: 07/25/23 04:33 Dose: 3 ml Documented By: BERKLEY Sodium Chloride (Nss) 1,000 mls @ 999 mls/hr IV .Q1H1M HARRISON Stop: 07/25/23 05:30 Last Infusion: 07/25/23 05:33 Dose: Infused Documented By: Admin: 07/25/23 04:32 Dose: 999 mls/hr Documented By: BERKLEY Methylprednisolone (Methylprednisolone 125 Mg/2 Ml Vial) 60 mg IV NOW STA Stop: 07/25/23 04:18 Last Admin: 07/25/23 04:32 Dose: 60 mg Documented By: HJW Discharge Plan Visit Data Chief Complaint: Shortness of Breath/Dyspnea Stated Complaint: SOB ED Provider: Coreen Garcia ED Midlevel Provider: Wendy Dangelo Discharge Problem: Acute hypoxic respiratory failure, Influenza A, Shortness of breath Patient Disposition: Admitted As Inpatient Condition: Good Forms Stand Alone Forms: My [facility] Prescriptions Prescriptions: No Action albuterol sulfate 90 mcg/actuation HFA aerosol inhaler 2 puff INHALATION Q4H PRN (Reason: Shortness Of Breath) Qty: 6.7 0RF budesonide [Pulmicort] 1 mg/2 mL Suspension For Nebulization 1 mg inhalation QAM azelastine 0.15 % (205.5 mcg) [place],Non-Aerosol 1 spray INTRANASAL BID cetirizine 10 mg tablet 10 mg PO DAILY PRN (Reason: Allergy Symptoms) doxazosin 2 mg tablet 2 mg PO HS atorvastatin 10 mg tablet 20 mg PO HS amlodipine 5 mg tablet 7.5 mg PO QAM aspirin [Demarco Low Dose Aspirin] 81 mg tablet,delayed release (DR/EC) 81 mg PO QAM levothyroxine 100 mcg tablet 100 mcg PO QAM omeprazole 20 mg capsule,delayed release(DR/EC) 20 mg PO QAM montelukast 10 mg tablet 10 mg PO QPM Spiriva with HandiHaler 18 mcg capsule, w/inhalation device 1 cap Inhalation QPM fluticasone furoate-vilanterol [Breo Ellipta] 200-25 mcg/dose blister with device 1 inh INHALATION QAM sumatriptan succinate [Imitrex] 25 mg Tablet 25 mg PO UD PRN (Reason: Headache) ipratropium-albuterol 0.5 mg-3 mg(2.5 mg base)/3 mL solution for nebulization 3 ml INHALATION QID PRN (Reason: Shortness Of Breath) cyanocobalamin (vitamin B-12) [Vitamin B-12] 1,000 mcg Tablet 1,000 mcg PO DAILY losartan 25 mg Tablet 25 mg PO DAILY glipizide 5 mg Tablet 5 mg PO BID Arnuity Ellipta 100 mcg/actuation Blister With Device 1 inh INHALATION DAILY amoxicillin-pot clavulanate 875-125 mg tablet 1 tab PO BID Qty: 7 0RF azithromycin 500 mg tablet 500 mg PO DAILY Qty: 1 0RF prednisone 10 mg tablet 10 mg PO DIRECTED Qty: 26 0RF Rx Instructions: see taper instructions - 40mg x1 day, 30mg x3 days, 20mg x3 days, 10mg x3 days, 5mg x4 days azithromycin [Zithromax Z-Duran] 250 mg tablet See Rx Instructions .ROUTE .COMPLEX Qty: 6 0RF Rx Instructions: For 250 mg dose pack: take 500 mg today (day 1), then 250 mg for 4 days (days 2-5) benzonatate 200 mg capsule 200 mg PO TID PRN (Reason: cough) Qty: 20 0RF Referrals Referrals: Enrico Mccauley MD [Primary Care Provider] -
[2023-07-25 04:45] LABS: Basophils # (auto) 0.06 K/uL (0.00-0.20); Basophils % (auto) 0.5 %; Eosinophils # (auto) 0.06 K/uL (0.00-0.50); Eosinophils % (auto) 0.5 %; Hematocrit (blood only) 43.1 % (42.0-52.0); Hemoglobin 14.8 g/dl (14.0-18.0); Immature Granulocytes # (auto) 0.07 K/uL (0.01-0.20); Immature Granulocytes % (auto) 0.6 %; Lymphocytes # (auto) 0.92 K/uL (1.20-3.40); Lymphocytes % (auto) 7.6 %; Mean Corpuscular Hemoglobin 28.5 pg (25.0-34.0); Mean Corpuscular Hgb Conc 34.3 g/dL (32.0-36.0); Mean Platelet Volume 9.5 fL (9.4-12.4); Monocytes # (auto) 0.99 K/uL (0.11-0.59); Monocytes % (auto) 8.2 %; Neutrophils # (auto) 10.04 K/uL (1.40-6.50); Neutrophils % (auto) 82.6 %; Platelet Count 263 K/uL (130-400); RDW Coefficient of Variation 13.9 % (11.5-14.5); RDW Standard Deviation 42.1 fL (36.4-46.3); Red Blood Count 5.19 M/uL (4.70-6.10); White Blood Count 12.14 K/ul (4.8-10.8)
--- NOTE | 2023-07-25 04:47 | Emergency Department Note ---
ED Visit Note I was consulted by the Advanced Practice Provider. I personally made/approved the management plan and take responsibility for the patient management. I performed a substantive portion of the visit. This includes the aspects of: -History/Physical/Personally seeing the patient -MDM -I independently interpreted the following studies: Portable chest x-ray .
[2023-07-25 05:01] LABS: Albumin Globulin Ratio 1.4 (0.9-2); Albumin Level 4.3 gm/dl (3.4-5.0); BUN Creatinine Ratio 18.1 (10-20); Bilirubin,Total 0.6 mg/dl (0.2-1.0); Calcium 9.1 mg/dl (8.6-10.3); Creatinine Clr Calc Pharmacy 68.3 ml/min; Est GFR (African American) 98.4 ml/min; Est GFR (Non-African American) 84.9 ml/min; Magnesium 1.7 mg/dl (1.7-2.4); Potassium 3.5 mmol/L (3.5-5.1); Total Protein 7.3 gm/dl (6.0-8.3)
[2023-07-25 05:08] LABS: Troponin I High Sensitivity 47.9 pg/ml (0-20)
[2023-07-25 05:10] LABS: Partial Thromboplastin Ratio 0.9; Partial Thromboplastin Time 26 Seconds (21-31); Prothrombin Time 11.4 Seconds (9.0-12.0)
[2023-07-25 05:38] LABS: Adenovirus PCR Not Detected (NotDetected); Bordetella parapertussis PCR Not Detected (NotDetected); Bordetella pertussis PCR Not Detected (NotDetected); Chlamydia pneumoniae PCR Not Detected (NotDetected); Coronavirus 229E PCR Not Detected (NotDetected); Coronavirus CoV-2 (COVID19)PCR Not Detected (NotDetected); Coronavirus HKU1 PCR Not Detected (NotDetected); Coronavirus NL63 PCR Not Detected (NotDetected); Coronavirus OC43PCR Not Detected (NotDetected); Human Metapneumovirus PCR Not Detected (NotDetected); Influenza B PCR Not Detected (NotDetected); Mycoplasma pneumoniae PCR Not Detected (NotDetected); Parainfluenza Virus 1 PCR Not Detected (NotDetected); Parainfluenza Virus 2 PCR Not Detected (NotDetected); Parainfluenza Virus 3 PCR Not Detected (NotDetected); Parainfluenza Virus 4 PCR Not Detected (NotDetected); Respiratory Syncytial VirusPCR Not Detected (NotDetected); Rhinovirus/Enterovirus PCR Not Detected (NotDetected)
[2023-07-25 05:48] LABS: Influenza A (H1 2009) PCR DETECTED (NotDetected)
[2023-07-25] MEDS ORDERED: OSELTAMIVIR PHOSPHATE 75 MG CAP PO STA (06:11)
[2023-07-25] MEDS ORDERED: ACETAMINOPHEN 500 MG TAB PO STA (06:17)
--- NOTE | 2023-07-25 07:07 | XRay Report ---
SINGLE VIEW CHEST CLINICAL HISTORY: Dyspnea FINDINGS: An AP, portable, upright chest radiograph is compared to study dated 05/13/2023. The examin ation is significantly degraded by portable technique and patient rotation. The heart is enlarged. T he pulmonary vasculature is noncongested. There is bibasilar scarring/atelectasis. No airspace consol idation or large pleural effusion is identified. No pneumothorax is seen. The skeletal structures are osteopenic. The bony thorax is grossly intact. IMPRESSION: Cardiomegaly with no acute cardiopulmonary abnormality identified. ACT 112: Negative or not required by law. Electronically signed by: Hal Cruz M.D. 07/25/2023 7:06 AM
[2023-07-25 07:19] LABS: Appearance Urine Clear (Clear); Bilirubin Urine Negative (Negative); Blood Urine Negative (Negative); Color Urine Yellow; Glucose Urine UA 2+ (Negative); Ketones Urine 1+ (Negative); Leukocyte Esterase Urine Negative (Negative); Nitrite Urine Negative (Negative); Protein Urine Negative (Negative); Specific Gravity Urine 1.024 (1.000-1.030); Urobilinogen Urine Negative (Negative); pH Urine 5.5 (4.5-7.5)
--- NOTE | 2023-07-25 07:25 | History & Physical Report ---
Date of Service July 25, 2023 Assessment & Plan (1) Asthma exacerbation: Plan: 78-year-old male with past med history significant for type 2 diabetes, hypothyroidism, hyperlipidemia, obstructive sleep apnea could not tolerate CPAP, severe persistent asthma dependent on systemic steroids, history of restrictive lung disease, neuromuscular respiratory weakness, chronic heart failure with preserved ejection fraction hypertension, mild aortic stenosis, GERD, BPH, migraine variant, aortic limb movement disorder, obesity presents with shortness of breath and found to have influenza and asthma exacerbation. Patient has chronic cough. Since yesterday he became acutely short of breath. Has headache. Having generalized weakness and bodyaches. No fevers. No runny nose or sore throat. Appetite is okay. No chest pain. No abdominal pain. No nausea. Normal bowel and bladder movements. Asthma exacerbation Most likely from influenza IV Solu-Medrol 40 mg 3 times daily Hold home p.o. prednisone for now nebs [id number] and as needed Tamiflu Continue home inhalers Procalcitonin negative close monitor telemetry floor Tachycardia Mostly from above Will follow CT chest PE study Elevation of troponin Mostly demand ischemia Will follow serial enzymes Obstructive sleep apnea could not tolerate CPAP History of chronic heart failure with preserved ejection fraction Mild aortic stenosis Monitor for volume overload Type 2 diabetes hold home p.o.Medications Insulin sliding scale Monitor blood sugars closely as patient is currently on IV steroids Hypertension Losartan and amlodipine We will monitor Hyperlipidemia Statin BPH On Cardura Hypothyroidism on Synthyroid History of migraine Will monitor DVT prophylaxis Lovenox Disposition telemetry floor Full code History of Present Illness Chief Complaint: Shortness of breath Primary Care Provider: Enrico Mccauley MD 78-year-old male with past med history significant for type 2 diabetes, hypothyroidism, hyperlipidemia, obstructive sleep apnea could not tolerate CPAP, severe persistent asthma dependent on systemic steroids, history of restrictive lung disease, neuromuscular respiratory weakness, chronic heart failure with preserved ejection fraction hypertension, mild aortic stenosis, GERD, BPH, migraine variant, aortic limb movement disorder, obesity presents with shortness of breath and found to have influenza and asthma exacerbation. Patient has chronic cough. Since yesterday he became acutely short of breath. Has headache. Having generalized weakness and bodyaches. No fevers. No runny nose or sore throat. Appetite is okay. No chest pain. No abdominal pain. No nausea. Normal bowel and bladder movements. Past medical history. As mentioned above past surgical history. Past surgical history. Colonoscopy. Tonsillectomy. Social history. . No smoking. No alcohol use. No drug use. Family history. Father had asthma, emphysema, diabetes, stroke. Mother had diabetes. Sister has diabetes . Father has heart disease ,rheumatoid arthritis Allergies Allergy/AdvReac Type Severity Reaction Status Date / Time cat dander Allergy Unknown watery eyes Verified 06/27/20 06:16 No Known Drug Allergies Allergy Unknown . Verified 06/27/20 06:16 SUJATHA Inhibitors AdvReac Mild Cough Verified 06/27/20 06:16 Home Medications Medication Instructions Recorded Confirmed Type albuterol sulfate 90 mcg/actuation 2 puff inhalation Q4H PRN sob 07/25/23 07/25/23 History aerosol inhaler amlodipine 5 mg tablet 5 mg PO DAILY 07/25/23 07/25/23 History atorvastatin 20 mg tablet 20 mg PO DAILY 07/25/23 07/25/23 History doxazosin 2 mg tablet 2 mg PO HS 07/25/23 07/25/23 History fluticasone furoate 100 1 inh inhalation DAILY 07/25/23 07/25/23 History mcg/actuation blister powder for inhalation (Arnuity Ellipta) fluticasone furoate 200 1 inh inhalation DAILY 07/25/23 07/25/23 History mcg-vilanterol 25 mcg/dose inhalation powder (Breo Ellipta) glipizide 5 mg tablet 5 mg PO BID 07/25/23 07/25/23 History ipratropium 0.5 mg-albuterol 3 mg 3 ml inhalation Q6H PRN Shortness 07/25/23 07/25/23 History (2.5 mg base)/3 mL nebulization Of Breath Or Wheezing soln levothyroxine 100 mcg tablet 100 mcg PO DAILY 07/25/23 07/25/23 History losartan 25 mg tablet 25 mg PO DAILY 07/25/23 07/25/23 History mometasone 50 mcg/actuation nasal 2 spray intranasal DAILY 07/25/23 07/25/23 History spray montelukast 10 mg tablet 10 mg PO HS 07/25/23 07/25/23 History omeprazole 20 mg capsule,delayed 20 mg PO DAILY 07/25/23 07/25/23 History release prednisone 5 mg tablet 5 mg PO DAILY 07/25/23 07/25/23 History sodium chloride 3 % for 4 ml inhalation BID 07/25/23 07/25/23 History nebulization tiotropium bromide 18 mcg capsule 18 mcg inhalation DAILY 07/25/23 07/25/23 History with inhalation device Past Med/Surg History Medical History Obstructive sleep apnea (adult) (pediatric) Asthma exacerbation Osteoarthritis Chronic back pain GERD (gastroesophageal reflux disease) Hypothyroidism Diabetes mellitus, type 2 NIDDM Chronic steroid use COPD Chronic headaches Hypertension Hyperlipidemia Pneumonia annually. last 11/2019. Asthma H. 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 ENT- oropharynx clear Neck- supple, no JVD. Lungs- clear to auscultation b/l rhonchi heard Heart- regular rhythm; tachycardia no murmur, no gallop. Abdomen- normal bowel sounds, soft, nontender, no distension. Extremities- no pretibial edema, no erythema seen. Neuro- alert, oriented x 3; PERRL, no facial palsy; no dysarthria; moves extremities. Skin- warm & dry Results & Data Results & Data Vital Signs (Past 12 Hours) Vital Signs Temp Pulse Pulse Resp BP BP Pulse Ox 07/25/23 06:00 112 H 24 146/91 H 96 07/25/23 04:38 89 L 07/25/23 04:24 122 H 22 96 07/25/23 04:13 128 H 07/25/23 04:04 36.8 C 134 H 16 148/85 H 92 07/25/23 04:02 O2 Del Method O2 Flow Rate 07/25/23 06:00 Nasal Cannula 2 07/25/23 04:38 Room Air, Nasal Cannula 0 07/25/23 04:24 Nasal Cannula 2 07/25/23 04:13 07/25/23 04:04 Room Air 07/25/23 04:02 Nasal Cannula 2 Diagnostic Findings Laboratory Results WBC 12.14 K/ul (4.8-10.8) H 07/25/23 04:26 RBC 5.19 M/uL (4.70-6.10) 07/25/23 04:26 Hgb 14.8 g/dl (14.0-18.0) 07/25/23 04:26 Hct 43.1 % (42.0-52.0) 07/25/23 04:26 MCV 83.0 fL (80.0-100.0) 07/25/23 04:26 MCH 28.5 pg (25.0-34.0) 07/25/23 04:26 MCHC 34.3 g/dL (32.0-36.0) 07/25/23 04:26 RDW Std Deviation 42.1 fL (36.4-46.3) 07/25/23 04:26 RDW Coeff of Zainab 13.9 % (11.5-14.5) 07/25/23 04:26 Plt Count 263 K/uL (130-400) 07/25/23 04:26 MPV 9.5 fL (9.4-12.4) 07/25/23 04:26 Immature Gran % (Auto) 0.6 % 07/25/23 04:26 Neut % (Auto) 82.6 % 07/25/23 04:26 Lymph % (Auto) 7.6 % 07/25/23 04:26 [place] % (Auto) 8.2 % 07/25/23 04:26 Eos % (Auto) 0.5 % 07/25/23 04:26 Baso % (Auto) 0.5 % 07/25/23 04:26 Neut # (Auto) 10.04 K/uL (1.40-6.50) H 07/25/23 04:26 Lymph # (Auto) 0.92 K/uL (1.20-3.40) L 07/25/23 04:26 [place] # (Auto) 0.99 K/uL (0.11-0.59) H 07/25/23 04:26 Eos # (Auto) 0.06 K/uL (0.00-0.50) 07/25/23 04:26 Baso # (Auto) 0.06 K/uL (0.00-0.20) 07/25/23 04:26 Immature Gran # (Auto) 0.07 K/uL (0.01-0.20) 07/25/23 04:26 PT 11.4 Seconds (9.0-12.0) 07/25/23 04:26 INR 1.0 (0.9-1.1) 07/25/23 04:26 APTT 26 Seconds (21-31) 07/25/23 04:26 PTT Ratio 0.9 07/25/23 04:26 Sodium 140 mmol/L (136-145) 07/25/23 04:26 Potassium 3.5 mmol/L (3.5-5.1) 07/25/23 04:26 Chloride 104 mmol/L (98-107) 07/25/23 04:26 Carbon Dioxide 26 mmol/L (21-32) 07/25/23 04:26 Anion Gap 10 (3-11) 07/25/23 04:26 BUN 15 mg/dl (6-23) 07/25/23 04:26 Creatinine 0.83 mg/dl (0.6-1.4) 07/25/23 04:26 Est Cr Clr Drug Dosing 68.3 ml/min 07/25/23 04:26 Est GFR ( Amer) 98.4 ml/min 07/25/23 04:26 Est GFR (Non-Af Amer) 84.9 ml/min 07/25/23 04:26 BUN/Creatinine Ratio 18.1 (10-20) 07/25/23 04:26 Glucose 157 mg/dl (70-99(Fasting)) H 07/25/23 04:26 Lactate 2.0 mmol/L (0.4-2.0) 07/25/23 04:26 Calcium 9.1 mg/dl (8.6-10.3) 07/25/23 04:26 Magnesium 1.7 mg/dl (1.7-2.4) 07/25/23 04:26 Total Bilirubin 0.6 mg/dl (0.2-1.0) 07/25/23 04:26 AST 13 U/L (13-39) 07/25/23 04:26 ALT 23 U/L (7-52) 07/25/23 04:26 Alkaline Phosphatase 41 U/L (34-104) 07/25/23 04:26 Troponin I High Sens 41.2 pg/ml (0-20) H 07/25/23 06:14 B-Natriuretic Peptide 40 pg/ml (0-100) 07/25/23 04:26 Total Protein 7.3 gm/dl (6.0-8.3) 07/25/23 04:26 Albumin 4.3 gm/dl (3.4-5.0) 07/25/23 04:26 Globulin 3.0 gm/dl (2.5-4.0) 07/25/23 04:26 Albumin/Globulin Ratio 1.4 (0.9-2) 07/25/23 04:26 Procalcitonin < 0.05 ng/ml (0-0.5) 07/25/23 05:52 Urine Color Yellow 07/25/23 06:55 Urine Appearance Clear (Clear) 07/25/23 06:55 Urine pH 5.5 (4.5-7.5) 07/25/23 06:55 Ur Specific [place] 1.024 (1.000-1.030) 07/25/23 06:55 Urine Protein Negative (Negative) 07/25/23 06:55 Urine Glucose (UA) 2+ (Negative) H 07/25/23 06:55 Urine Ketones 1+ (Negative) H 07/25/23 06:55 Urine Blood Negative (Negative) 07/25/23 06:55 Urine Nitrite Negative (Negative) 07/25/23 06:55 Urine Bilirubin Negative (Negative) 07/25/23 06:55 Urine Urobilinogen Negative (Negative) 07/25/23 06:55 Ur Leukocyte Esterase Negative (Negative) 07/25/23 06:55 Nasal Influ A H1 2009 PCR DETECTED (NotDetected) A* 07/25/23 04:17 Adenovirus (PCR) Not Detected (NotDetected) 07/25/23 04:17 B. pertussis DNA (PCR) Not Detected (NotDetected) 07/25/23 04:17 B.parapertussis DNA PCR Not Detected (NotDetected) 07/25/23 04:17 C. pneumoniae DNA (PCR) Not Detected (NotDetected) 07/25/23 04:17 Coronavirus OC43 (PCR) Not Detected (NotDetected) 07/25/23 04:17 Coronavirus HKU1 (PCR) Not Detected (NotDetected) 07/25/23 04:17 Coronavirus 229E (PCR) Not Detected (NotDetected) 07/25/23 04:17 SARS-CoV-2 (PCR) Not Detected (NotDetected) 07/25/23 04:17 Coronavirus NL63 (PCR) Not Detected (NotDetected) 07/25/23 04:17 Human Metapneumovir PCR Not Detected (NotDetected) 07/25/23 04:17 Influenza Type B (PCR) Not Detected (NotDetected) 07/25/23 04:17 M. pneumoniae (PCR) Not Detected (NotDetected) 07/25/23 04:17 Parainfluenza 1 (PCR) Not Detected (NotDetected) 07/25/23 04:17 Parainfluenza 2 (PCR) Not Detected (NotDetected) 07/25/23 04:17 Parainfluenza 3 (PCR) Not Detected (NotDetected) 07/25/23 04:17 Parainfluenza 4 (PCR) Not Detected (NotDetected) 07/25/23 04:17 RSV (PCR) Not Detected (NotDetected) 07/25/23 04:17 Entero/Rhino (PCR) Not Detected (NotDetected) 07/25/23 04:17 Impressions Chest X-Ray 07/25/23 04:17 SINGLE VIEW CHEST CLINICAL HISTORY: Dyspnea FINDINGS: An AP, portable, upright chest radiograph is compared to study dated 05/13/2023. The examination is significantly degraded by portable technique and patient rotation. The heart is enlarged. The pulmonary vasculature is noncongested. There is bibasilar scarring/atelectasis. No airspace consolidation or large pleural effusion is identified. No pneumothorax is seen. The skeletal structures are osteopenic. The bony thorax is grossly intact. IMPRESSION: Cardiomegaly with no acute cardiopulmonary abnormality identified. ACT 112: Negative or not required by law. Electronically signed by: Hal Cruz M.D. 07/25/2023 7:06 AM Chest CTA 07/25/23 06:12 CT ANGIOGRAPHY OF THE CHEST, PULMONARY EMBOLUS PROTOCOL CLINICAL HISTORY: Cough. Shortness of breath. Chest pain. COMPARISON STUDY: Chest radiograph April 13, 2023 and July 25, 2023. TECHNIQUE: Following IV administration of 117 mL of Optiray, helical axial images of the chest were obtained utilizing the pulmonary embolus protocol. Maximal intensity projections and sagittal and coronal reformats were viewed on an independent 3D workstation. IV contrast was administered without complication. Automated exposure control was utilized for the study. A dose lowering technique was utilized adhering to the principles of ALARA. CT DOSE: 792.02 mGy.cm FINDINGS: No pulmonary emboli are identified. There is no thoracic aortic dissection. No enlarged thoracic lymph nodes are present. There is no pericardial effusion. Moderate coronary artery calcification is present. There is borderline cardiomegaly. Chronic moderate elevation right hemidiaphragm is unchanged. Secretions within right proximal intermedius as well as multiple occluded segmental bronchi within the right lower lobe are noted. Moderate right lower lobe airspace opacity is present with volume loss. Right middle lobe segmental opacity favors atelectasis. Mild left lower lobe opacity is present. There is no pneumothorax or pleural effusion. There is no cavitation. A gallstone within the gallbladder is incidentally noted. IMPRESSION: 1. No pulmonary emboli identified. 2. Moderate secretions within the bronchus intermedius and right lower lobe segmental bronchi. Right lower lobe airspace opacity with volume loss. This could reflect pneumonia/aspiration pneumonitis or atelectasis. 3. Stable chronic elevation of the right hemidiaphragm. ACT 112: Negative or not required by law. Electronically signed by: Osmany Wilson M.D. 07/25/2023 7:24 AM ECG Additional Comments: ECG. Sinus tach rate of 125. No significant change was found Code Status & VTE Plan VTE Prophylaxis Plan VTE Prophylaxis will be ordered: Yes
--- NOTE | 2023-07-25 07:26 | CT Scan Report ---
CT ANGIOGRAPHY OF THE CHEST, PULMONARY EMBOLUS PROTOCOL CLINICAL HISTORY: Cough. Shortness of breath. Chest pain. COMPARISON STUDY: Chest radiograph April 13, 2023 and July 25, 2023. TECHNIQUE: Following IV administration of 117 mL of Optiray, helical axial images of the chest were o btained utilizing the pulmonary embolus protocol. Maximal intensity projections and sagittal and cor onal reformats were viewed on an independent 3D workstation. IV contrast was administered without co mplication. Automated exposure control was utilized for the study. A dose lowering technique was ut ilized adhering to the principles of ALARA. CT DOSE: 792.02 mGy.cm FINDINGS: No pulmonary emboli are identified. There is no thoracic aortic dissection. No enlarged th oracic lymph nodes are present. There is no pericardial effusion. Moderate coronary artery calcificat ion is present. There is borderline cardiomegaly. Chronic moderate elevation right hemidiaphragm is u nchanged. Secretions within right proximal intermedius as well as multiple occluded segmental bronchi within the right lower lobe are noted. Moderate right lower lobe airspace opacity is present with vo lume loss. Right middle lobe segmental opacity favors atelectasis. Mild left lower lobe opacity is pr esent. There is no pneumothorax or pleural effusion. There is no cavitation. A gallstone within the g allbladder is incidentally noted. IMPRESSION: 1. No pulmonary emboli identified. 2. Moderate secretions within the bronchus intermedius and right lower lobe segmental bronchi. Right lower lobe airspace opacity with volume loss. This could reflect pneumonia/aspiration pneumonitis or atelectasis. 3. Stable chronic elevation of the right hemidiaphragm. ACT 112: Negative or not required by law. Electronically signed by: Osmany Wilson M.D. 07/25/2023 7:24 AM
[2023-07-25] MEDS ORDERED: GLUCOSE 40% GEL 15 GM TUBE PO PRN (08:18)
[2023-07-25] MEDS ORDERED: guaiFENesin/CODEINE 100MG/10MG 5ML UDC PO PRN (08:18)
[2023-07-25] MEDS ORDERED: LEVALBUTEROL 1.25MG/0.5ML NEB NEB PRN (08:18)
[2023-07-25] MEDS ORDERED: ALBUTEROL HFA 8 GM INHALER INH PRN (08:18)
[2023-07-25] MEDS ORDERED: ONDANSETRON INJ 2 MG/ML 2 ML VIAL IV PRN (08:18)
[2023-07-25] MEDS ORDERED: GLUCAGON FOR INJ 1 MG VIAL SQ PRN (08:18)
[2023-07-25] MEDS ORDERED: DEXTROSE 50% 50 ML SYRINGE IV PRN (08:18)
[2023-07-25] MEDS ORDERED: GLUCOSE 10 TAB/TUBE PO PRN (08:18)
[2023-07-25] MEDS ORDERED: NITROGLYCERIN SL 0.4 MG/TAB TAB SL PRN (08:18)
[2023-07-25] MEDS: IPRATROPIUM BROMIDE NEB SOLN 0.02% 2.5 ML VIAL INH SCH ×4 (08:48→19:55)
[2023-07-25] MEDS: LEVALBUTEROL 1.25 MG/3 ML NEB NEB SCH ×4 (08:49→19:55)
[2023-07-25] MEDS ORDERED: PHARMACY GLYCEMIC MGMT CONSULT PRN (08:59)
[2023-07-25] MEDS ORDERED: XOPENEX/ATROVENT 1.25mg/0.5MG NEB COMBO NEB SCH (09:00)
[2023-07-25] MEDS ORDERED: FLUTICASONE FUROATE 100MCG 14 PUFFS/INHALER INH SCH (09:00)
[2023-07-25] MEDS: INSULIN ASPART PER UNIT CHARGE SC SCH ×4 (09:08→21:31)
[2023-07-25] MEDS: ATORVASTATIN 20 MG TAB PO SCH (09:19)
[2023-07-25] MEDS: LEVOTHYROXINE SODIUM 100 MCG TABLET PO SCH (09:19)
[2023-07-25] MEDS: LOSARTAN POTASSIUM 25 MG TAB PO SCH (09:19)
[2023-07-25] MEDS: methylPREDNISolone 40 MG in SYRINGE 0 ML IV SCH ×3 (09:19→21:40)
[2023-07-25] MEDS: amLODIPine BESYLATE 5 MG TAB PO SCH (09:19)
[2023-07-25] MEDS: PANTOprazole 40 MG TAB PO SCH (09:19)
[2023-07-25] MEDS: BENZONATATE 100 MG CAPSULE PO SCH ×3 (09:19→21:41)
[2023-07-25] MEDS: ENOXAPARIN INJ 40 MG/0.4 ML SYR SQ SCH (09:20)
[2023-07-25] MEDS: FLUTICASONE PROPIONATE NA SPR 16 GM BTL NAE SCH (09:20)
[2023-07-25] MEDS: FLUTICASONE/VILANTEROL 200/25MCG 14 PUFFS/INHALER INH SCH (09:21)
[2023-07-25] MEDS: UMECLIDINIUM BROMIDE 62.5MCG/BLISTER 7 PUFFS/INHALER INH SCH (09:21)
[2023-07-25] MEDS ORDERED: LANTUS PER UNIT CHARGE SC ONE ×2 (09:30→21:00)
[2023-07-25] MEDS: cefTRIAXone SODIUM 2,000 MG in DEXTROSE 5 % MINI-B 50 ML IV SCH (09:59)
[2023-07-25] MEDS: DOXYCYCLINE HYCLATE 100 MG in DEXTROSE 5% MINI-B 100 ML IV SCH ×2 (09:59→22:26)
--- NOTE | 2023-07-25 10:14 | Pulmonary Consultation ---
Date of Consultation July 25, 2023 Assessment & Plan (1) Asthma exacerbation: (2) Shortness of breath: (3) PHILLIP on CPAP: (4) Bronchiectasis: Plan CTA chest 07/25/2023 personally reviewed: Right upper lobe granuloma Elevated right hemidiaphragm with dependent ectasis Minimal cylindrical bronchiectasis bilateral lower lobes more on the left side No significant mediastinal lymphadenopathy Spirometry 08/05/2019 personally reviewed: Nonspecific spirometry with no obstruction FVC 2.27 L 67%, FEV1 1.95 to 73%, FEV1/FVC 86% -- Asthma exacerbation Secondary to influenza A On Breo, Spiriva, Arnuity at home. 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 Respiratory bio fire negative for everything except for influenza A on 07/25/2023 Procalcitonin negative --Bronchiectasis Bilateral lower lobes On the long-term patient will benefit from upper airway clearance technique with hypertonic saline, flutter valve as well as Mucinex --PHILLIP Polysomnography 05/06/2019: AHI 11.2, severe PLMD Able to tolerate CPAP --Chronic prednisone use 5 mg on a daily basis currently Plan: Continue with Solu-Medrol Atypical antibiotic coverage with doxycycline for 7 days Patient will ultimately benefit from hypertonic saline and flutter valve but given he came in with relentless cough will wait on the for the time being Please note the above document was generated using voice recognition software. It may contain grammatical, syntax or spelling errors.Any formal questions or concerns about the content, text or information contained within the body of this dictation should be directly addressed to the provider for clarification. History of Present Illness Attending Physician: Carlton Tobar MD History of Present Illness 78-year-old male coming to hospital for shortness of breath Past medical history: PHILLIP unable to tolerate CPAP, hypertension, diabetes, dyslipidemia, hypothyroidism, on chronic prednisone 5 mg Pulmonary consulted for the same Patient follows up with Dr. Paul for his allergies and is on Xolair. At the time of examination patient was saturating 93% on room air His heart rate was in the 110s. He was just finishing his nebulizer treatment. The reason he came to the hospital was coughing relentlessly. Difficulty bringing up the phlegm Immediate he did bring up phlegm is mostly clear. Denies any hemoptysis He was getting more short of breath after bouts of coughing. Denies any dysuria, or diarrhea No headache, no blurry vision Denies any fever or chills Social history: Lifetime non-smoker. 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 Used to have cats in the past Allergies Allergy/AdvReac Type Severity Reaction Status Date / Time cat dander Allergy Unknown watery eyes Verified 06/27/20 06:16 No Known Drug Allergies Allergy Unknown . Verified 06/27/20 06:16 SUJATHA Inhibitors AdvReac Mild Cough Verified 06/27/20 06:16 Home Medications Medication Instructions Recorded Confirmed Type albuterol sulfate 90 mcg/actuation 2 puff inhalation Q4H PRN sob 07/25/23 07/25/23 History aerosol inhaler amlodipine 5 mg tablet 5 mg PO DAILY 07/25/23 07/25/23 History atorvastatin 20 mg tablet 20 mg PO DAILY 07/25/23 07/25/23 History doxazosin 2 mg tablet 2 mg PO HS 07/25/23 07/25/23 History fluticasone furoate 100 1 inh inhalation DAILY 07/25/23 07/25/23 History mcg/actuation blister powder for inhalation (Arnuity Ellipta) fluticasone furoate 200 1 inh inhalation DAILY 07/25/23 07/25/23 History mcg-vilanterol 25 mcg/dose inhalation powder (Breo Ellipta) glipizide 5 mg tablet 5 mg PO BID 07/25/23 07/25/23 History ipratropium 0.5 mg-albuterol 3 mg 3 ml inhalation Q6H PRN Shortness 07/25/23 07/25/23 History (2.5 mg base)/3 mL nebulization Of Breath Or Wheezing soln levothyroxine 100 mcg tablet 100 mcg PO DAILY 07/25/23 07/25/23 History losartan 25 mg tablet 25 mg PO DAILY 07/25/23 07/25/23 History mometasone 50 mcg/actuation nasal 2 spray intranasal DAILY 07/25/23 07/25/23 History spray montelukast 10 mg tablet 10 mg PO HS 07/25/23 07/25/23 History omeprazole 20 mg capsule,delayed 20 mg PO DAILY 07/25/23 07/25/23 History release prednisone 5 mg tablet 5 mg PO DAILY 07/25/23 07/25/23 History sodium chloride 3 % for 4 ml inhalation BID 07/25/23 07/25/23 History nebulization tiotropium bromide 18 mcg capsule 18 mcg inhalation DAILY 07/25/23 07/25/23 History with inhalation device Patient History Medical History Obstructive sleep apnea (adult) (pediatric) Asthma exacerbation Osteoarthritis Chronic back pain GERD (gastroesophageal reflux disease) Hypothyroidism Diabetes mellitus, type 2 NIDDM Chronic steroid use COPD Chronic headaches Hypertension Hyperlipidemia Pneumonia annually. last 11/2019. Asthma H. 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 Beliefs That Will Affect Care: None marital status: Current Living Situation: Spouse current occupational status: retired Feels Safe at Home: Yes Assistive Devices: Cane Review of Systems 2 Review of Systems: All systems reviewed & are unremarkable except as noted in HPI & below Physical Exam 2 Physical Exam: Constitutional: No acute distress HEENT: EOMI, PERRLA Respiratory system: Decreased air entry bilaterally, No rhonchi, positive crackles bilateral lower lobes, faint expiratory wheeze bilaterally CVS: S1-S2 positive, no murmurs or gallops, distant heart sounds, tachycardia Abdomen: Soft, nontender, nondistended, positive bowel sounds x4 Extremities: +2 pulses bilaterally radialis/ dorsalis pedis, no cyanosis, no edema Neuro: Awake alert oriented x3 Psych: Normal mood and affect G/U: No Abad Skin: no rashes, warm and dry Lymphatic: no cervical or axillary lymphadenopathy Results & Data Results & Data Vital Signs (Past 12 Hours) Vital Signs Temp Pulse Pulse Resp BP BP Pulse Ox 07/25/23 08:51 110 H 18 95 07/25/23 08:25 07/25/23 08:25 102 H 15 98 07/25/23 07:59 102 H 07/25/23 06:00 112 H 24 146/91 H 96 07/25/23 04:38 89 L 07/25/23 04:24 122 H 22 96 07/25/23 04:13 128 H 07/25/23 04:04 36.8 C 134 H 16 148/85 H 92 07/25/23 04:02 Pulse Ox O2 Del Method O2 Del Method O2 Flow Rate O2 Flow Rate 07/25/23 08:51 Nasal Cannula 2 07/25/23 08:25 96 Room Air 2 07/25/23 08:25 Nasal Cannula 07/25/23 07:59 07/25/23 06:00 Nasal Cannula 2 07/25/23 04:38 Room Air, Nasal Cannula 0 07/25/23 04:24 Nasal Cannula 2 07/25/23 04:13 07/25/23 04:04 Room Air 07/25/23 04:02 Nasal Cannula 2 Laboratory Results 07/25/23 04:26 07/25/23 04:26 PG Care Time/CCT Total # of Minutes Spent Total Time Spent with Patient: Total time spent is greater than 50% in coordination of care (as documented) at patient's floor/unit and/or counseling patient: Coding Level of Care Code 20094 INT INP/OBS CARE 3/75MIN Diagnoses Asthma exacerbation J45.901 Shortness of breath R06.02 PHILLIP on CPAP G47.33; Z99.89 Bronchiectasis J47.9
--- NOTE | 2023-07-25 10:16 | Pharmacy Report ---
Pharmacy Glycemic Short Note 2 - Date of Service July 25, 2023 - Glycemic Short BSG Results (Last 24 hours): 07/25/23 07/25/23 04:26 08:48 Glucose 157 H POC Glucose 287 H OUTPATIENT ANTIDIABETIC REGIMEN: * glipizide 5 mg PO BIDM HbA1c pending for 07/26/23 ASSESSMENT: * PAGE is a 78 year old male who presents to ED for evaluation of shortness of breath. * Pertinent PMH includes severe asthma, T2DM, HFpEF. * Methylprednisolone 60 mg IV x 1 in ED w/ 40 mg IV q8h ongoing. Of note, patient takes prednisone 5 mg PO daily as an outpatient. * Presenting BSG of 157 mg/dL, increased to 287 mg/dL following steroid administration * Will initiate aggressive SC basal/bolus regimen to cover IV steroids * Diet ordered PLAN FOR INPATIENT GLYCEMIC CONTROL: * Hold outpatient oral diabetes medications * Basal insulin * Lantus 30 units SQ x 1 now (~0.4 unit/kg) * Lantus 0-10 units SC HS (see EHR for details) * Bolus insulin * NovoLog per scale ACHS or Q6hrs while NPO * Goal Range: Low 110 mg/dL - High 140 mg/dL * Correction Factor: 20 mg/dL/unit * Nutritional / Prandial insulin per carb ratio of 1 unit per 7 grams CHO consumed * ,04 checks with same parameters
--- NOTE | 2023-07-25 11:15 | Electrocardiogram Report ---
Test Reason : Blood Pressure : / mmHG Vent. Rate : 125 BPM Atrial Rate : 125 BPM P-R Int : 154 ms QRS Dur : 070 ms QT Int : 298 ms P-R-T Axes : 035 005 056 degrees QTc Int : 430 ms Sinus tachycardia Otherwise normal ECG When compared with ECG of 13-MAY-2023 16:04, No significant change was found Confirmed by Patricio Zuniga ([id number]) on 07/25/2023 11:15:25 AM Referred By: REFERRED SELF Confirmed By:Matteo Zuniga
[2023-07-25] MEDS: ACETAMINOPHEN 325 MG TAB PO PRN (20:15)
[2023-07-25] MEDS: MONTELUKAST SODIUM 10 MG TABLET PO SCH (21:41)
[2023-07-25] MEDS: DOXAZosin MESYLATE TAB 2 MG TAB PO SCH (21:41)
[2023-07-25] MEDS: OSELTAMIVIR PHOSPHATE 75 MG CAP PO SCH (22:26)
[2023-07-26] MEDS: INSULIN ASPART PER UNIT CHARGE SC SCH ×6 (00:12→20:48)
[2023-07-26] MEDS: LEVOTHYROXINE SODIUM 100 MCG TABLET PO SCH (06:43)
[2023-07-26 07:36] LABS: Estimated Average Glucose 209 mg/dl; Hemoglobin A1C 8.9 % (4.5-5.6)
[2023-07-26] MEDS: LEVALBUTEROL 1.25 MG/3 ML NEB NEB SCH ×4 (07:53→20:27)
[2023-07-26] MEDS: IPRATROPIUM BROMIDE NEB SOLN 0.02% 2.5 ML VIAL INH SCH ×4 (07:53→20:27)
[2023-07-26] MEDS: PANTOprazole 40 MG TAB PO SCH (08:08)
[2023-07-26] MEDS: ATORVASTATIN 20 MG TAB PO SCH (08:08)
[2023-07-26] MEDS: LOSARTAN POTASSIUM 25 MG TAB PO SCH (08:09)
[2023-07-26] MEDS: amLODIPine BESYLATE 5 MG TAB PO SCH (08:09)
[2023-07-26] MEDS: BENZONATATE 100 MG CAPSULE PO SCH ×3 (08:09→20:22)
[2023-07-26] MEDS: FLUTICASONE PROPIONATE NA SPR 16 GM BTL NAE SCH (08:10)
[2023-07-26] MEDS: ENOXAPARIN INJ 40 MG/0.4 ML SYR SQ SCH (08:10)
[2023-07-26] MEDS: UMECLIDINIUM BROMIDE 62.5MCG/BLISTER 7 PUFFS/INHALER INH SCH (08:11)
[2023-07-26] MEDS: OSELTAMIVIR PHOSPHATE 75 MG CAP PO SCH ×2 (08:11→20:23)
[2023-07-26] MEDS: FLUTICASONE/VILANTEROL 200/25MCG 14 PUFFS/INHALER INH SCH (08:12)
[2023-07-26] MEDS: cefTRIAXone SODIUM 2,000 MG in DEXTROSE 5 % MINI-B 50 ML IV SCH (08:17)
[2023-07-26] MEDS: methylPREDNISolone 40 MG in SYRINGE 0 ML IV SCH (08:17)
[2023-07-26] MEDS: DOXYCYCLINE HYCLATE 100 MG in DEXTROSE 5% MINI-B 100 ML IV SCH (08:17)
--- NOTE | 2023-07-26 08:24 | Pulmonology Progress Note ---
Date of Service July 26, 2023 Assessment & Plan (1) Asthma exacerbation: (2) Shortness of breath: (3) PHILLIP on CPAP: (4) Bronchiectasis: Plan CTA chest 07/25/2023 personally reviewed: Right upper lobe granuloma Elevated right hemidiaphragm with dependent ectasis Minimal cylindrical bronchiectasis bilateral lower lobes more on the left side No significant mediastinal lymphadenopathy Spirometry 08/05/2019 personally reviewed: Nonspecific spirometry with no obstruction FVC 2.27 L 67%, FEV1 1.95 to 73%, FEV1/FVC 86% -- Asthma exacerbation Secondary to influenza A On Breo, Spiriva, Arnuity at home. 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 40 mg for 3 days followed by 20 mg for 2 days and then go back to his home dose of prednisone Atypical antibiotic coverage with doxycycline for 7 days Patient will ultimately benefit from hypertonic saline and flutter valve, can be thought off on discharge. Can DC arnuity inhaler on discharge. C/w Breo and Incruse No further recommendation from pulmonary perspective, will sign off Please call directly with any questions Case discussed with Dr. Tobar and RN Please note the above document was generated using voice recognition software. It may contain grammatical, syntax or spelling errors.Any formal questions or concerns about the content, text or information contained within the body of this dictation should be directly addressed to the provider for clarification. Admission and Anticipated Discharge Date Admission Date: July 25, 2023 Subjective Patient seen and examined at bedside. No acute distress, no adverse events overnight Overall he says he is feeling much better Shortness of breath is significantly improved No chest pain, no chest tightness Occasional cough with clear phlegm. Denies any hemoptysis Has been afebrile Asking to go home Review of Systems 2 Review of Systems: All systems reviewed & are unremarkable except as noted in Subjective Physical Exam 2 Physical Exam: Constitutional: No acute distress HEENT: EOMI, PERRLA Respiratory system: Decreased air entry bilaterally, No rhonchi, positive crackles bilateral lower lobes, no wheeze CVS: S1-S2 positive, positive 2 out of 6 systolic murmur appreciated best at aorta Abdomen: Soft, nontender, nondistended, positive bowel sounds x4 Extremities: +2 pulses bilaterally radialis/ dorsalis pedis, no cyanosis, no edema Neuro: Awake alert oriented x3 Psych: Normal mood and affect G/U: No Abad Skin: no rashes, warm and dry Lymphatic: no cervical or axillary lymphadenopathy Results & Data Results & Data Vital Signs (Past 12 Hours) Vital Signs Temp Pulse Resp BP Pulse Ox O2 Del Method FiO2 07/26/23 07:54 108 H 15 92 Room Air 21 07/26/23 07:20 36.8 C 95 H 18 153/73 H 93 Room Air 07/26/23 02:44 36.6 C 96 H 20 138/79 92 Room Air 07/25/23 22:35 36.8 C 103 H 20 156/83 H 94 Room Air Laboratory Results 07/25/23 04:26 07/25/23 04:26 PG Care Time/CCT Total # of Minutes Spent Total Time Spent with Patient: Total time spent is greater than 50% in coordination of care (as documented) at patient's floor/unit and/or counseling patient: Coding Level of Care Code 19227 SUB INP/OBS CARE 3/50MIN Diagnoses Asthma exacerbation J45.901 Shortness of breath R06.02 PHILLIP on CPAP G47.33; Z99.89 Bronchiectasis J47.9
[2023-07-26] MEDS ORDERED: LANTUS PER UNIT CHARGE SC SCH (09:00)
[2023-07-26] MEDS: ACETAMINOPHEN 325 MG TAB PO PRN (09:39)
--- NOTE | 2023-07-26 11:12 | Electrocardiogram Report ---
Test Reason : Blood Pressure : / mmHG Vent. Rate : 094 BPM Atrial Rate : 094 BPM P-R Int : 148 ms QRS Dur : 072 ms QT Int : 366 ms P-R-T Axes : 031 007 042 degrees QTc Int : 457 ms Sinus rhythm with occasional Premature ventricular complexes Otherwise normal ECG When compared with ECG of 25-JUL-2023 04:14, Premature ventricular complexes are now Present Confirmed by Patricio Zuniga ([id number]) on 07/26/2023 11:12:05 AM Referred By: REFERRED SELF Confirmed By:Matteo Zuniga
[2023-07-26] MEDS ORDERED: FUROSEMIDE INJ 20 MG/2 ML VIAL IV ONE (14:14)
--- NOTE | 2023-07-26 14:27 | Pharmacy Report ---
Pharmacy Glycemic Short Note 2 - Date of Service July 26, 2023 - Glycemic Short BSG Results (Last 24 hours): 07/25/23 07/25/23 07/26/23 18:24 20:49 00:09 POC Glucose 270 H 358 H* 229 H 07/26/23 07/26/23 07/26/23 04:18 07:29 11:34 POC Glucose 233 H 177 H 247 H OUTPATIENT ANTIDIABETIC REGIMEN: * glipizide 5 mg PO BIDM HbA1c 8.9% ASSESSMENT: 07/26/23 * BSGs yesterday were 287-290-270/358 and overnight were 229-233 mg/dL. * Patient received 81 units of insulin yesterday (40 units of basal and 41 units of bolus). Patient received an extra 9 units of Novolog overnight. * Patient was still receiving Solu-medrol 40 mg IV TID but this was d/c'ed after 1 dose today. Patient transitioned to prednisone 40 mg PO daily for tomorrow. * Gave Lantus 50 units this AM (full daily dose yesterday + overnight Novolog). Will decrease to 30 units (full weight-based stress of 2) starting tomorrow. Add NPH 30 units (0.4 units/kg) for steroid hyperglycemia. * Tightened Novolog. BACKGROUND * PAGE is a 78 year old male who presents to ED for evaluation of shortness of breath. * Pertinent PMH includes severe asthma, T2DM, HFpEF. * Methylprednisolone 60 mg IV x 1 in ED w/ 40 mg IV q8h ongoing. Of note, patient takes prednisone 5 mg PO daily as an outpatient. * Presenting BSG of 157 mg/dL, increased to 287 mg/dL following steroid administration * Will initiate aggressive SC basal/bolus regimen to cover IV steroids * Diet ordered PLAN FOR INPATIENT GLYCEMIC CONTROL: * Hold outpatient oral diabetes medications * Basal insulin * Lantus 50 units SQ x 1 then decrease to 30 units SQ daily * NPH 30 units SQ daily with pred 40 mg * Bolus insulin * NovoLog per scale ACHS or Q6hrs while NPO * Goal Range: Low 110 mg/dL - High 140 mg/dL * Correction Factor: 15 mg/dL/unit * Nutritional / Prandial insulin per carb ratio of 1 unit per 4 grams CHO consumed
--- NOTE | 2023-07-26 15:11 | Hospitalist Progress Note ---
Date of Service July 26, 2023 Assessment & Plan (1) Asthma exacerbation: Plan: 78-year-old male with past med history significant for type 2 diabetes, hypothyroidism, hyperlipidemia, obstructive sleep apnea could not tolerate CPAP, severe persistent asthma dependent on systemic steroids, history of restrictive lung disease, neuromuscular respiratory weakness, chronic heart failure with preserved ejection fraction hypertension, mild aortic stenosis, GERD, BPH, migraine variant, aortic limb movement disorder, obesity presents with shortness of breath and found to have influenza and asthma exacerbation. Patient has chronic cough. Since yesterday he became acutely short of breath. Has headache. Having generalized weakness and bodyaches. No fevers. No runny nose or sore throat. Appetite is okay. No chest pain. No abdominal pain. No nausea. Normal bowel and bladder movements. Acute hypoxic respiratory failure Asthma exacerbation Most likely from influenza IV Solu-Medrol 40 mg 3 times daily Hold home p.o. prednisone for now nebs [id number] and as needed Tamiflu Continue home inhalers Procalcitonin negative close monitor telemetry floor 07/26 Off oxygen supplement Transition to oral prednisone 40 mg daily Continue nebs Continue ceftriaxone plus doxycycline, Tamiflu Tachycardia Mostly from above CT chest: No PE Elevation of troponin Mostly demand ischemia repeat Trop today Denies chest pain Obstructive sleep apnea could not tolerate CPAP History of chronic heart failure with preserved ejection fraction Mild aortic stenosis Positive edema and crackles today Lasix 20 mg IV ordered Monitor closely Type 2 diabetes hold home p.o.Medications Insulin sliding scale Monitor blood sugars closely as patient is currently on IV steroids Hypertension - Losartan and amlodipine Hyperlipidemia Statin BPH On Cardura Hypothyroidism - on Synthyroid History of migraine Will monitor DVT prophylaxis Lovenox Disposition telemetry floor Full code Admission and Anticipated Discharge Date Admission Date: July 25, 2023 Subjective ff up for flu, asthma exacerbation, etc Seen resting in bedside chair, comfortable, not in distress Patient's at the bedside visiting Patient states he continues to feel improved Breathing is improving, less cough No chest pain Noticed bilateral leg swelling, but no pain next Review of Systems Review of Systems: all noted and negative except for above Physical Exam Physical Exam: General- oriented x 3, not in distress, speaks in sentences with no effort or accessory muscle use Eyes- anicteric Neck- no JVD Lungs-crackles bilateral bases, no wheezing Heart- normal rate, regular rhythm; no murmurs Abdomen- normal bowel sounds, nondistended, soft, nontender Extremities-mild lower extremity edema, no tenderness, no erythema Neuro- alert, oriented x 3; no gross focal neurologic deficits Skin- warm & dry Results & Data Results & Data Vital Signs (Past 12 Hours) Vital Signs Temp Pulse Pulse Resp BP Pulse Ox O2 Del Method 07/26/23 15:02 90 17 95 Nasal Cannula 07/26/23 11:33 76 14 94 Room Air 07/26/23 11:17 36.5 C 97 H 18 144/88 H 96 Room Air 07/26/23 08:15 95 H 07/26/23 08:15 Room Air 07/26/23 07:54 108 H 15 92 Room Air 07/26/23 07:20 36.8 C 95 H 18 153/73 H 93 Room Air O2 Flow Rate FiO2 07/26/23 15:02 1 07/26/23 11:33 21 07/26/23 11:17 07/26/23 08:15 07/26/23 08:15 07/26/23 07:54 21 07/26/23 07:20 all noted and reviewed including below
[2023-07-26] MEDS: DOXYCYCLINE HYCLATE 100 MG CAP PO SCH (20:20)
[2023-07-26] MEDS: DOXAZosin MESYLATE TAB 2 MG TAB PO SCH (20:23)
[2023-07-26] MEDS: MONTELUKAST SODIUM 10 MG TABLET PO SCH (20:24)
[2023-07-27] MEDS: LEVOTHYROXINE SODIUM 100 MCG TABLET PO SCH (05:39)
[2023-07-27] MEDS: ACETAMINOPHEN 325 MG TAB PO PRN ×2 (07:19→21:35)
[2023-07-27] MEDS: IPRATROPIUM BROMIDE NEB SOLN 0.02% 2.5 ML VIAL INH SCH ×4 (07:29→19:36)
[2023-07-27] MEDS: LEVALBUTEROL 1.25 MG/3 ML NEB NEB SCH ×4 (07:30→19:36)
[2023-07-27 08:05] LABS: BUN Creatinine Ratio 25.9 (10-20); Calcium 8.7 mg/dl (8.6-10.3); Potassium 3.2 mmol/L (3.5-5.1)
--- NOTE | 2023-07-27 08:10 | Pulmonology Progress Note ---
Date of Service July 27, 2023 Assessment & Plan (1) Asthma exacerbation: (2) Shortness of breath: (3) PHILLIP on CPAP: (4) Bronchiectasis: Plan CTA chest 07/25/2023 personally reviewed: Right upper lobe granuloma Elevated right hemidiaphragm with dependent ectasis Minimal cylindrical bronchiectasis bilateral lower lobes more on the left side No significant mediastinal lymphadenopathy Spirometry 08/05/2019 personally reviewed: Nonspecific spirometry with no obstruction FVC 2.27 L 67%, FEV1 1.95 to 73%, FEV1/FVC 86% -- Asthma exacerbation Secondary to influenza A On Breo, Spiriva, Arnuity at home. 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 fire negative for everything except for influenza A on 07/25/2023 Procalcitonin negative --Bronchiectasis Bilateral lower lobes On the long-term patient will benefit from upper airway clearance technique with hypertonic saline, flutter valve as well as Mucinex --PHILLIP Polysomnography 05/06/2019: AHI 11.2, severe PLMD Unable to tolerate CPAP --Chronic prednisone use 5 mg on a daily basis currently Plan: Prednisone 40 mg for 3 days followed by 20 mg for 2 days and then go back to his home dose of prednisone Atypical antibiotic coverage with doxycycline for 7 days Patient will ultimately benefit from hypertonic saline and flutter valve, can be thought off on discharge. Can DC arnuity inhaler on discharge. C/w Breo and Incruse No further recommendation from pulmonary perspective, will sign off Please call directly with any questions Case discussed with Dr. Tobar Please note the above document was generated using voice recognition software. It may contain grammatical, syntax or spelling errors.Any formal questions or concerns about the content, text or information contained within the body of this dictation should be directly addressed to the provider for clarification. Admission and Anticipated Discharge Date Admission Date: July 25, 2023 Subjective Patient seen and examined at bedside. No acute distress, no events overnight No headache, no nausea, no vomiting Shortness of breath is improved. He is asking if he could go home Fair appetite Review of Systems 2 Review of Systems: All systems reviewed & are unremarkable except as noted in Subjective Physical Exam 2 Physical Exam: Constitutional: No acute distress HEENT: EOMI, PERRLA Respiratory system: Decreased air entry bilaterally, No rhonchi, positive crackles bilateral lower lobes, minimal expiratory wheeze CVS: S1-S2 positive, positive 2 out of 6 systolic murmur appreciated best at aorta Abdomen: Soft, nontender, nondistended, positive bowel sounds x4 Extremities: +2 pulses bilaterally radialis/ dorsalis pedis, no cyanosis, no edema Neuro: Awake alert oriented x3 Psych: Normal mood and affect G/U: No Abad Skin: no rashes, warm and dry Lymphatic: no cervical or axillary lymphadenopathy Results & Data Results & Data Vital Signs (Past 12 Hours) Vital Signs Temp Pulse Pulse Resp BP Pulse Ox O2 Del Method 07/27/23 07:31 89 18 94 Room Air 07/27/23 03:53 103 H 07/27/23 03:00 37.0 C 99 H 18 132/74 92 Room Air 07/26/23 23:00 36.9 C 94 H 18 144/88 H 92 Room Air 07/26/23 21:04 Room Air 07/26/23 20:27 85 18 94 Room Air Laboratory Results 07/25/23 04:26 07/27/23 06:02 PG Care Time/CCT Total # of Minutes Spent Total Time Spent with Patient: Total time spent is greater than 50% in coordination of care (as documented) at patient's floor/unit and/or counseling patient: Coding Level of Care Code 48467 SUB INP/OBS CARE 2/35MIN Diagnoses Asthma exacerbation J45.901 Shortness of breath R06.02 PHILLIP on CPAP G47.33; Z99.89 Bronchiectasis J47.9
[2023-07-27] MEDS: INSULIN ASPART PER UNIT CHARGE SC SCH ×4 (08:39→21:22)
[2023-07-27] MEDS: PANTOprazole 40 MG TAB PO SCH (08:40)
[2023-07-27] MEDS: amLODIPine BESYLATE 5 MG TAB PO SCH (08:40)
[2023-07-27] MEDS: LOSARTAN POTASSIUM 25 MG TAB PO SCH (08:40)
[2023-07-27] MEDS: predniSONE 20 MG TAB PO SCH (08:40)
[2023-07-27] MEDS: ATORVASTATIN 20 MG TAB PO SCH (08:40)
--- NOTE | 2023-07-27 08:40 | Electrocardiogram Report ---
Test Reason : Blood Pressure : / mmHG Vent. Rate : 090 BPM Atrial Rate : 090 BPM P-R Int : 140 ms QRS Dur : 070 ms QT Int : 354 ms P-R-T Axes : 033 002 042 degrees QTc Int : 433 ms Sinus rhythm with Premature atrial complexes Minimal voltage criteria for LVH, may be normal variant Abnormal ECG When compared with ECG of 26-JUL-2023 06:12, Premature ventricular complexes are no longer Present Premature atrial complexes are now Present Confirmed by Enrico Carpenter ([id number]) on 07/27/2023 8:39:56 AM Referred By: REFERRED SELF Confirmed By:Enrico Carpenter
[2023-07-27] MEDS: FLUTICASONE/VILANTEROL 200/25MCG 14 PUFFS/INHALER INH SCH (08:41)
[2023-07-27] MEDS: FLUTICASONE PROPIONATE NA SPR 16 GM BTL NAE SCH (08:41)
[2023-07-27] MEDS: ENOXAPARIN INJ 40 MG/0.4 ML SYR SQ SCH (08:41)
[2023-07-27] MEDS: OSELTAMIVIR PHOSPHATE 75 MG CAP PO SCH (08:42)
[2023-07-27] MEDS: UMECLIDINIUM BROMIDE 62.5MCG/BLISTER 7 PUFFS/INHALER INH SCH (08:43)
[2023-07-27] MEDS: LANTUS PER UNIT CHARGE SC SCH (08:48)
[2023-07-27] MEDS: INSULIN HUMAN NPH SC SCH (08:49)
[2023-07-27] MEDS: DOXYCYCLINE HYCLATE 100 MG CAP PO SCH ×2 (08:49→21:39)
[2023-07-27] MEDS ORDERED: POTASSIUM CHLORIDE CRTAB 20 MEQ TABCR PO STA (08:53)
[2023-07-27] MEDS ORDERED: FUROSEMIDE INJ 20 MG/2 ML VIAL IV ONE (09:23)
[2023-07-27] MEDS: BENZONATATE 100 MG CAPSULE PO SCH ×3 (09:37→22:10)
[2023-07-27] MEDS: cefTRIAXone SODIUM 2,000 MG in DEXTROSE 5 % MINI-B 50 ML IV SCH (09:38)
[2023-07-27] MEDS: ASPIRIN 81 MG ECTAB PO SCH (11:34)
--- NOTE | 2023-07-27 13:21 | Cardiology Consultation ---
Date of Consultation July 27, 2023 Assessment & Plan (1) Elevated troponin: (2) Acute respiratory failure with hypoxia: (3) Asthma exacerbation: (4) Influenza A: Plan 78-year-old male with chronic asthmatic lung disease, bronchiectasis admitted with acute asthmatic exacerbation, influenza. Serial troponins ordered since admission demonstrated persistent elevation. EKG without acute changes to suggest ischemia with chronic left ventricular hypertrophy findings. Telemetry with sinus tachycardia, atrial and ventricular ectopy only. Echocardiogram pending. Prior history of mild aortic stenosis but no history of ischemic heart disease Recommendations: Troponins likely elevated on the basis of acute respiratory distress, hypoxic respiratory failure. Do not suspect acute coronary syndrome. Will review echocardiogram. Given persistent sinus tachycardia we will add low- dose beta-seb with metoprolol succinate 12.5 mg daily. Would not titrate higher initially Patient already on adequate antihypertension and lipid-lowering therapy History of Present Illness Reason for Consultation: Elevated troponin Requesting Physician: Carlton Tobar MD Attending Physician: Carlton Tobar MD History of Present Illness Patient is a 78-year-old male with ongoing issues per review of records and discussion with patient which include 1. Asthmatic lung disease with bronchiectasis, recurrent exacerbations, steroid-dependent 2. Obstructive sleep apnea 3. Hypertension 4. Sinus tachycardia 5. Mild calcific aortic stenosis by last interrogation Patient referred after acute hospitalization 07/25/2023 with signs and symptoms of acute asthmatic exacerbation. Patient has responded to therapies with respiratory status improved. Chronic sinus tachycardia still present with elevated heart rate on presentation. Patient referred now due to elevated troponin since admission He denies any signs or symptoms of chest pains. No prior history of angina, myocardial infarction. Denies history of congestive heart failure despite noted in H&P. Does not take diuretics chronically Notes possible prior history of murmur Cough now productive respiratory status improved No bleeding Allergies Allergy/AdvReac Type Severity Reaction Status Date / Time cat dander Allergy Unknown watery eyes Verified 06/27/20 06:16 No Known Drug Allergies Allergy Unknown . Verified 06/27/20 06:16 SUJATHA Inhibitors AdvReac Mild Cough Verified 06/27/20 06:16 Home Medications Medication Instructions Recorded Confirmed Type albuterol sulfate 90 mcg/actuation 2 puff inhalation Q4H PRN sob 07/25/23 07/25/23 History aerosol inhaler amlodipine 5 mg tablet 5 mg PO DAILY 07/25/23 07/25/23 History atorvastatin 20 mg tablet 20 mg PO DAILY 07/25/23 07/25/23 History doxazosin 2 mg tablet 2 mg PO HS 07/25/23 07/25/23 History fluticasone furoate 100 1 inh inhalation DAILY 07/25/23 07/25/23 History mcg/actuation blister powder for inhalation (Arnuity Ellipta) fluticasone furoate 200 1 inh inhalation DAILY 07/25/23 07/25/23 History mcg-vilanterol 25 mcg/dose inhalation powder (Breo Ellipta) glipizide 5 mg tablet 5 mg PO BID 07/25/23 07/25/23 History ipratropium 0.5 mg-albuterol 3 mg 3 ml inhalation Q6H PRN Shortness 07/25/23 07/25/23 History (2.5 mg base)/3 mL nebulization Of Breath Or Wheezing soln levothyroxine 100 mcg tablet 100 mcg PO DAILY 07/25/23 07/25/23 History losartan 25 mg tablet 25 mg PO DAILY 07/25/23 07/25/23 History mometasone 50 mcg/actuation nasal 2 spray intranasal DAILY 07/25/23 07/25/23 History spray montelukast 10 mg tablet 10 mg PO HS 07/25/23 07/25/23 History omeprazole 20 mg capsule,delayed 20 mg PO DAILY 07/25/23 07/25/23 History release prednisone 5 mg tablet 5 mg PO DAILY 07/25/23 07/25/23 History sodium chloride 3 % for 4 ml inhalation BID 07/25/23 07/25/23 History nebulization tiotropium bromide 18 mcg capsule 18 mcg inhalation DAILY 07/25/23 07/25/23 History with inhalation device Patient History Medical History Obstructive sleep apnea (adult) (pediatric) Asthma exacerbation Osteoarthritis Chronic back pain GERD (gastroesophageal reflux disease) Hypothyroidism Diabetes mellitus, type 2 NIDDM Chronic steroid use COPD Chronic headaches Hypertension Hyperlipidemia Pneumonia annually. last 11/2019. Asthma H. pylori infection hx Surgical History History of tooth extraction History of tonsillectomy History of shoulder surgery left History of colonoscopy Family History Mother Diabetes Father Diabetes Emphysema of lung Sister Diabetes Other No family history of adverse response to anesthesia Social History Smoking Status: Never smoker Second Hand Exposure: No; Do You Dip or Chew Tobacco: No; Hx Alcohol Use: No Hx Substance Use: No Preferred Language: Czech Communication Ability: Effective Harness Rigger Required: No Beliefs That Will Affect Care: None marital status: Current Living Situation: Spouse current occupational status: retired Feels Safe at Home: Yes Assistive Devices: Cane, Denture - Upper and Walker Review of Systems Review of Systems: All systems reviewed & are unremarkable except as noted in HPI & below Physical Exam Constitutional: + ill appearing; no acute distress Eyes: PERRL, conjunctivae normal, anicteric sclerae ENMT: external ear and nose normal, oropharynx normal Neck: trachea midline, no thyromegaly Respiratory: Auscultation: + diminished lung sounds Cardiovascular: Rate/Rhythm: regular rate, regular rhythm and + tachycardic Heart Sounds: + murmur (Grade 2 or 6 systolic murmur, no diastolic) Vessels: no JVD Extremities: + edema (Trace) Gastrointestinal (Abdomen): normal bowel sounds, soft, nontender, no hepatosplenomegaly Musculoskeletal: no cyanosis or clubbing, extremities motor strength 5/5 Results & Data Vital Signs (Past 12 Hours) Vital Signs Temp Pulse Pulse Resp BP Pulse Ox O2 Del Method 07/27/23 12:17 36.5 C 95 H 19 133/82 93 Room Air 07/27/23 11:14 89 14 91 Room Air 07/27/23 08:30 Room Air 07/27/23 07:31 89 18 94 Room Air 07/27/23 07:20 36.6 C 83 18 148/92 H 93 Room Air 07/27/23 06:00 90 07/27/23 03:53 103 H 07/27/23 03:00 37.0 C 99 H 18 132/74 92 Room Air FiO2 07/27/23 12:17 07/27/23 11:14 21 07/27/23 08:30 07/27/23 07:31 07/27/23 07:20 07/27/23 06:00 07/27/23 03:53 07/27/23 03:00 Laboratory Results Laboratory Results - last 24 hr 07/26/23 07/26/23 07/26/23 16:33 17:12 20:11 Sodium Potassium Chloride Carbon Dioxide Anion Gap BUN Creatinine Est Cr Clr Drug Dosing Est GFR ( Amer) Est GFR (Non-Af Amer) BUN/Creatinine Ratio Glucose POC Glucose 183 H 154 H Calcium Troponin I High Sens 239.3 H* D 07/27/23 07/27/23 07/27/23 05:57 06:02 07:14 Sodium 140 Potassium 3.2 L Chloride 105 Carbon Dioxide 24 Anion Gap 11 BUN 29 H Creatinine 1.12 Est Cr Clr Drug Dosing 50.0 Est GFR ( Amer) 73.0 Est GFR (Non-Af Amer) 63.0 BUN/Creatinine Ratio 25.9 H Glucose 163 H POC Glucose 133 H Calcium 8.7 Troponin I High Sens 253.5 H* 07/27/23 11:05 Sodium Potassium Chloride Carbon Dioxide Anion Gap BUN Creatinine Est Cr Clr Drug Dosing Est GFR ( Amer) Est GFR (Non-Af Amer) BUN/Creatinine Ratio Glucose POC Glucose 165 H Calcium Troponin I High Sens
[2023-07-27] MEDS: METOPROLOL SUCC 25MG EXT REL TAB PO SCH (15:09)
--- NOTE | 2023-07-27 19:24 | Hospitalist Progress Note ---
Date of Service July 27, 2023 Assessment & Plan (1) Asthma exacerbation: Plan: 78-year-old male with past med history significant for type 2 diabetes, hypothyroidism, hyperlipidemia, obstructive sleep apnea could not tolerate CPAP, severe persistent asthma dependent on systemic steroids, history of restrictive lung disease, neuromuscular respiratory weakness, chronic heart failure with preserved ejection fraction hypertension, mild aortic stenosis, GERD, BPH, migraine variant, aortic limb movement disorder, obesity presents with shortness of breath and found to have influenza and asthma exacerbation. Patient has chronic cough. Since yesterday he became acutely short of breath. Has headache. Having generalized weakness and bodyaches. No fevers. No runny nose or sore throat. Appetite is okay. No chest pain. No abdominal pain. No nausea. Normal bowel and bladder movements. Acute hypoxic respiratory failure Asthma exacerbation Most likely from influenza IV Solu-Medrol 40 mg 3 times daily Hold home p.o. prednisone for now nebs [id number] and as needed Tamiflu Continue home inhalers Procalcitonin negative close monitor telemetry floor 07/26 Off oxygen supplement Transition to oral prednisone 40 mg daily Continue nebs Continue ceftriaxone plus doxycycline, Tamiflu 07/27 Remains on room air, clinically improving gradually daily Continue prednisone, nebs,, ceftriaxone plus doxycycline, Tamiflu Tachycardia Mostly from above CT chest: No PE Elevation of troponin Troponin trending up Echocardiogram ordered Cardiology service consulted Likely secondary to demand ischemia Obstructive sleep apnea could not tolerate CPAP History of chronic heart failure with preserved ejection fraction Mild aortic stenosis Positive edema and crackles improving Another Lasix 20 mg IV ordered Monitor closely Type 2 diabetes hold home p.o.Medications Insulin sliding scale Monitor blood sugars closely Hypertension - Losartan and amlodipine Hyperlipidemia Statin BPH On Cardura Hypothyroidism - on Synthyroid History of migraine Will monitor DVT prophylaxis Lovenox Disposition telemetry floor Full code Admission and Anticipated Discharge Date Admission Date: July 25, 2023 Subjective Follow-up for acute asthma exacerbation, hypoxic respiratory failure, influenza infection, etc. Seen sitting up in bedside chair, comfortable, not distressed On room air States he continues to feel improved gradually Breathing is improving, less cough No chest pain, palpitations, dizziness Less leg edema No other new symptoms Review of Systems Review of Systems: all noted and negative except for above Physical Exam Physical Exam: General- oriented x 3, not in distress, speaks in sentences with no effort or accessory muscle use Eyes- anicteric Neck- no JVD Lungs-mild crackles at the bases, no wheezing Heart- normal rate, regular rhythm; no murmurs Abdomen- normal bowel sounds, nondistended, soft, nontender Extremities-mild lower leg edema, no calf tenderness Neuro- alert, oriented x 3; no gross focal neurologic deficits Skin- warm & dry Results & Data Results & Data Vital Signs (Past 12 Hours) Vital Signs Temp Pulse Pulse Pulse Resp BP Pulse Ox 07/27/23 19:20 36.5 C 76 18 149/87 H 94 07/27/23 17:38 96 H 07/27/23 15:43 36.6 C 93 H 19 126/77 92 07/27/23 14:25 112 H 18 92 07/27/23 12:17 36.5 C 95 H 19 133/82 93 07/27/23 11:14 89 14 91 07/27/23 08:30 07/27/23 07:31 89 18 94 O2 Del Method FiO2 07/27/23 19:20 Room Air 07/27/23 17:38 07/27/23 15:43 Room Air 07/27/23 14:25 Room Air 07/27/23 12:17 Room Air 07/27/23 11:14 Room Air 21 07/27/23 08:30 Room Air 07/27/23 07:31 Room Air all noted and reviewed including below
[2023-07-27] MEDS: DOXAZosin MESYLATE TAB 2 MG TAB PO SCH (21:39)
[2023-07-27] MEDS: MONTELUKAST SODIUM 10 MG TABLET PO SCH (21:40)
[2023-07-27] MEDS: OSELTAMIVIR PHOSPHATE SUSP 30 MG/5 ML UDP PO SCH (22:10)
[2023-07-28] MEDS: ACETAMINOPHEN 325 MG TAB PO PRN (02:15)
[2023-07-28] MEDS: LEVOTHYROXINE SODIUM 100 MCG TABLET PO SCH (06:06)
[2023-07-28 07:03] LABS: BUN Creatinine Ratio 26.7 (10-20); Calcium 8.4 mg/dl (8.6-10.3); Creatinine Clr Calc Pharmacy 62.2 ml/min; Est GFR (African American) 95.1 ml/min; Est GFR (Non-African American) 82.1 ml/min; Potassium 3.3 mmol/L (3.5-5.1)
[2023-07-28] MEDS: IPRATROPIUM BROMIDE NEB SOLN 0.02% 2.5 ML VIAL INH SCH ×3 (07:18→15:34)
[2023-07-28] MEDS: LEVALBUTEROL 1.25 MG/3 ML NEB NEB SCH ×3 (07:19→15:34)
[2023-07-28] MEDS: predniSONE 20 MG TAB PO SCH (07:56)
[2023-07-28] MEDS: LOSARTAN POTASSIUM 25 MG TAB PO SCH (07:56)
[2023-07-28] MEDS: PANTOprazole 40 MG TAB PO SCH (07:56)
[2023-07-28] MEDS: METOPROLOL SUCC 25MG EXT REL TAB PO SCH (07:56)
[2023-07-28] MEDS: UMECLIDINIUM BROMIDE 62.5MCG/BLISTER 7 PUFFS/INHALER INH SCH (07:57)
[2023-07-28] MEDS: DOXYCYCLINE HYCLATE 100 MG CAP PO SCH (08:03)
[2023-07-28] MEDS: ATORVASTATIN 20 MG TAB PO SCH (08:03)
[2023-07-28] MEDS: ENOXAPARIN INJ 40 MG/0.4 ML SYR SQ SCH (08:03)
[2023-07-28] MEDS: FLUTICASONE PROPIONATE NA SPR 16 GM BTL NAE SCH (08:03)
[2023-07-28] MEDS: FLUTICASONE/VILANTEROL 200/25MCG 14 PUFFS/INHALER INH SCH (08:03)
[2023-07-28] MEDS: INSULIN ASPART PER UNIT CHARGE SC SCH ×2 (08:04→11:59)
[2023-07-28] MEDS: LANTUS PER UNIT CHARGE SC SCH (08:04)
[2023-07-28] MEDS: amLODIPine BESYLATE 5 MG TAB PO SCH (08:04)
[2023-07-28] MEDS: cefTRIAXone SODIUM 2,000 MG in DEXTROSE 5 % MINI-B 50 ML IV SCH (08:04)
[2023-07-28] MEDS: OSELTAMIVIR PHOSPHATE SUSP 30 MG/5 ML UDP PO SCH (08:04)
[2023-07-28] MEDS: ASPIRIN 81 MG ECTAB PO SCH (08:04)
[2023-07-28] MEDS: INSULIN HUMAN NPH SC SCH (08:05)
[2023-07-28] MEDS: BENZONATATE 100 MG CAPSULE PO SCH ×2 (08:11→14:04)
[2023-07-28] MEDS ORDERED: POTASSIUM CHLORIDE CRTAB 20 MEQ TABCR PO STA (08:56)
[2023-07-28] MEDS: CARBOHYDRATES FOR HYPOGLYCEMIA PO PRN ×2 (11:21→11:36)
--- NOTE | 2023-07-28 12:21 | Cardiology Progress Note ---
Date of Service July 28, 2023 Assessment & Plan (1) Elevated troponin: (2) Acute respiratory failure with hypoxia: (3) Asthma exacerbation: (4) Influenza A: (5) Aortic stenosis, moderate: Plan 78-year-old male with chronic asthmatic lung disease, bronchiectasis admitted with acute asthmatic exacerbation, influenza. Serial troponins ordered since admission demonstrated persistent elevation. EKG without acute changes to suggest ischemia with chronic left ventricular hypertrophy findings. Telemetry with sinus tachycardia, atrial and ventricular ectopy only. Echocardiogram pending. Prior history of mild aortic stenosis but no history of ischemic heart disease Recommendations: Troponins likely elevated on the basis of acute respiratory distress, hypoxic respiratory failure. Do not suspect acute coronary syndrome. Will review echocardiogram. Given persistent sinus tachycardia we will add low- dose beta-seb with metoprolol succinate 12.5 mg daily. Would not titrate higher initially Patient already on adequate antihypertension and lipid-lowering therapy 07/28/2023 Assessment and plan as above Tolerating low-dose beta-seb would continue Echocardiogram demonstrates moderate calcific, nonrheumatic aortic stenosis. Will recommend repeat echocardiogram and cardiology follow-up 6 months Admission and Anticipated Discharge Date Admission Date: July 25, 2023 Subjective Patient seen and examined, chart, medications, telemetry reviewed Notes cough is loose, better oxygenation. No chest pain or discomfort no dizz iness or lightheadedness Heart rate trending somewhat lower Review of Systems Review of Systems: All systems reviewed & are unremarkable except as noted in Subjective Physical Exam Constitutional: no acute distress Eyes: PERRL, conjunctivae normal, anicteric sclerae ENMT: external ear and nose normal, oropharynx normal Neck: trachea midline, no thyromegaly Respiratory: Auscultation: + diminished lung sounds and + rhonchi Cardiovascular: Rate/Rhythm: regular rate and regular rhythm Heart Sounds: + murmur (Grade 2 or 6 systolic murmur, no diastolic) Vessels: no JVD Extremities: + edema (Trace) Gastrointestinal (Abdomen): normal bowel sounds, soft, nontender, no hepatosplenomegaly Musculoskeletal: no cyanosis or clubbing, extremities motor strength 5/5 Results & Data Vital Signs (Past 12 Hours) Vital Signs Temp Pulse Pulse Pulse Resp BP Pulse Ox 07/28/23 10:50 90 18 96 07/28/23 08:56 07/28/23 08:28 36.6 C 91 H 18 150/81 H 93 07/28/23 08:00 89 07/28/23 07:20 88 18 97 07/28/23 03:35 36.8 C 84 18 147/77 H 93 07/28/23 00:26 85 O2 Del Method 07/28/23 10:50 Room Air 07/28/23 08:56 Room Air 07/28/23 08:28 Room Air 07/28/23 08:00 07/28/23 07:20 Room Air 07/28/23 03:35 Room Air 07/28/23 00:26
--- NOTE | 2023-07-28 18:25 | Discharge Summary ---
Discharge Summary Date of Service July 28, 2023 Notes For Next Care Provider Echocardiogram demonstrates moderate calcific, nonrheumatic aortic stenosis. Will recommend repeat echocardiogram and cardiology follow-up 6 months - per Cardiology Service recommendations Medication Changes From Visit LEVALBUTEROL/IPRATROPIUM- nebulizer treatment DOXYCYCLINE- antibiotic TAMIFLU- for influenza PREDNISONE- steroid for asthma flare up METOPROLOL- to control heart rate Admission HPI Per Admitting Provider 78-year-old male with past med history significant for type 2 diabetes, hypothyroidism, hyperlipidemia, obstructive sleep apnea could not tolerate CPAP, severe persistent asthma dependent on systemic steroids, history of restrictive lung disease, neuromuscular respiratory weakness, chronic heart failure with preserved ejection fraction hypertension, mild aortic stenosis, GERD, BPH, migraine variant, aortic limb movement disorder, obesity presents with shortness of breath and found to have influenza and asthma exacerbation. Patient has chronic cough. Since yesterday he became acutely short of breath. Has headache. Having generalized weakness and bodyaches. No fevers. No runny nose or sore throat. Appetite is okay. No chest pain. No abdominal pain. No nausea. Normal bowel and bladder movements. Past medical history. As mentioned above past surgical history. Past surgical history. Colonoscopy. Tonsillectomy. Social history. . No smoking. No alcohol use. No drug use. Family history. Father had asthma, emphysema, diabetes, stroke. Mother had diabetes. Sister has diabetes . Father has heart disease ,rheumatoid arthritis Admission Exam Per Admitting Provider General- Not in acute dsitress Head- atraumatic Eyes- PERRL. ENT- oropharynx clear Neck- supple, no JVD. Lungs- clear to auscultation b/l rhonchi heard Heart- regular rhythm; tachycardia no murmur, no gallop. Abdomen- normal bowel sounds, soft, nontender, no distension. Extremities- no pretibial edema, no erythema seen. Neuro- alert, oriented x 3; PERRL, no facial palsy; no dysarthria; moves extremities. Skin- warm & dry Principal Dx & Hospital Course #1 = Principal Diagnosis (1) Asthma exacerbation: 78-year-old male with past med history significant for type 2 diabetes, hypothyroidism, hyperlipidemia, obstructive sleep apnea could not tolerate CPAP, severe persistent asthma dependent on systemic steroids, history of restrictive lung disease, neuromuscular respiratory weakness, chronic heart failure with preserved ejection fraction hypertension, mild aortic stenosis, GERD, BPH, migraine variant, aortic limb movement disorder, obesity presents with shortness of breath and found to have influenza and asthma exacerbation. Patient has chronic cough. Since yesterday he became acutely short of breath. Has headache. Having generalized weakness and bodyaches. No fevers. No runny nose or sore throat. Appetite is okay. No chest pain. No abdominal pain. No shahnaz sea. Normal bowel and bladder movements. Acute hypoxic respiratory failure Asthma Exacerbation Influenza Infection Asthma exacerbation Most likely from influenza IV Solu-Medrol 40 mg 3 times daily Hold home p.o. prednisone for now nebs [id number] and as needed Tamiflu Continue home inhalers Procalcitonin negative close monitor telemetry floor 07/28 Off oxygen supplement Transition to oral prednisone 40 mg daily Continue nebs at home d/c ceftriaxone continue doxycycline, Tamiflu course at home Sinus Tachycardia CT chest: No PE Moderate coronary artery calcification is present Elevation of troponin Troponin trending up Echocardiogram ordered Cardiology service consulted Likely secondary to demand ischemia recommend low dose Metoprolol on ASA, Lipitor Echocardiogram demonstrates moderate calcific, nonrheumatic aortic stenosis. Will recommend repeat echocardiogram and cardiology follow-up 6 months - per Cardiology Service recommendations Cholelithiasis incidental finding monitor Obstructive sleep apnea could not tolerate CPAP Mild aortic stenosis Plower leg edema and crackles resolved given IV lasix Type 2 diabetes continue home regimen Hypertension - Losartan and amlodipine Hyperlipidemia Statin BPH On Cardura Hypothyroidism - on Synthyroid History of migraine Discharge Exam General- oriented x 3, not in distress, speaks in sentences with no effort or accessory muscle use Eyes- anicteric Neck- no JVD Lungs-faint rhonchi BL good air entry bilaterally Heart- normal rate, regular rhythm; no murmurs Abdomen- normal bowel sounds, nondistended, soft, nontender Extremities- no pretibial edema, no calf tenderness Neuro- alert, oriented x 3; no gross focal neurologic deficits Skin- warm & dry Updated Medication List Medication Instructions Recorded Confirmed Type albuterol sulfate 90 mcg/actuation 2 puff inhalation Q4H PRN sob 07/25/23 07/25/23 History aerosol inhaler amlodipine 5 mg tablet 5 mg PO DAILY 07/25/23 07/25/23 History atorvastatin 20 mg tablet 20 mg PO DAILY 07/25/23 07/25/23 History doxazosin 2 mg tablet 2 mg PO HS 07/25/23 07/25/23 History fluticasone furoate 100 1 inh inhalation DAILY 07/25/23 07/25/23 History mcg/actuation blister powder for inhalation (Arnuity Ellipta) fluticasone furoate 200 1 inh inhalation DAILY 07/25/23 07/25/23 History mcg-vilanterol 25 mcg/dose inhalation powder (Breo Ellipta) glipizide 5 mg tablet 5 mg PO BID 07/25/23 07/25/23 History ipratropium 0.5 mg-albuterol 3 mg 3 ml inhalation Q6H PRN Shortness 07/25/23 07/25/23 History (2.5 mg base)/3 mL nebulization Of Breath Or Wheezing soln levothyroxine 100 mcg tablet 100 mcg PO DAILY 07/25/23 07/25/23 History losartan 25 mg tablet 25 mg PO DAILY 07/25/23 07/25/23 History mometasone 50 mcg/actuation nasal 2 spray intranasal DAILY 07/25/23 07/25/23 History spray montelukast 10 mg tablet 10 mg PO HS 07/25/23 07/25/23 History omeprazole 20 mg capsule,delayed 20 mg PO DAILY 07/25/23 07/25/23 History release prednisone 5 mg tablet 5 mg PO DAILY 07/25/23 07/25/23 History sodium chloride 3 % for 4 ml inhalation BID 07/25/23 07/25/23 History nebulization tiotropium bromide 18 mcg capsule 18 mcg inhalation DAILY 07/25/23 07/25/23 History with inhalation device aspirin 81 mg tablet,delayed 81 mg PO QAM 30 days #30 tabs 07/28/23 Rx release ipratropium bromide 0.02 % 0.5 mg (2.5 mL) inhalation QIDR 7 07/28/23 Rx solution for inhalation days #75 mL levalbuterol HCl 1.25 mg/3 mL 1.25 mg (3 mL) NEB QIDR 7 days #90 07/28/23 Rx solution for nebulization mL metoprolol succinate 25 mg 12.5 mg (1/2 x 25 mg) PO QAM 30 07/28/23 Rx tablet,extended release 24 hr days #15 tabs oseltamivir 75 mg capsule (Tamiflu) 75 mg PO BID #3 caps 07/28/23 Rx prednisone 10 mg tablet 10 mg PO DAILY #16 tabs 07/28/23 Rx Hospital Stay Data Consultations 07/25/23 05:25 ED Decision to Admit Stat 07/25/23 08:59 Consult Pulmonology Routine 07/27/23 09:49 Consult Cardiology Routine Diagnostic Imagining Performed Laboratory Results WBC 12.14 K/ul (4.8-10.8) H 07/25/23 04:26 RBC 5.19 M/uL (4.70-6.10) 07/25/23 04:26 Hgb 14.8 g/dl (14.0-18.0) 07/25/23 04:26 Hct 43.1 % (42.0-52.0) 07/25/23 04:26 MCV 83.0 fL (80.0-100.0) 07/25/23 04:26 MCH 28.5 pg (25.0-34.0) 07/25/23 04:26 MCHC 34.3 g/dL (32.0-36.0) 07/25/23 04:26 RDW Std Deviation 42.1 fL (36.4-46.3) 07/25/23 04:26 RDW Coeff of Zainab 13.9 % (11.5-14.5) 07/25/23 04:26 Plt Count 263 K/uL (130-400) 07/25/23 04:26 MPV 9.5 fL (9.4-12.4) 07/25/23 04:26 Immature Gran % (Auto) 0.6 % 07/25/23 04:26 Neut % (Auto) 82.6 % 07/25/23 04:26 Lymph % (Auto) 7.6 % 07/25/23 04:26 [place] % (Auto) 8.2 % 07/25/23 04:26 Eos % (Auto) 0.5 % 07/25/23 04:26 Baso % (Auto) 0.5 % 07/25/23 04:26 Neut # (Auto) 10.04 K/uL (1.40-6.50) H 07/25/23 04:26 Lymph # (Auto) 0.92 K/uL (1.20-3.40) L 07/25/23 04:26 [place] # (Auto) 0.99 K/uL (0.11-0.59) H 07/25/23 04:26 Eos # (Auto) 0.06 K/uL (0.00-0.50) 07/25/23 04:26 Baso # (Auto) 0.06 K/uL (0.00-0.20) 07/25/23 04:26 Immature Gran # (Auto) 0.07 K/uL (0.01-0.20) 07/25/23 04:26 PT 11.4 Seconds (9.0-12.0) 07/25/23 04:26 INR 1.0 (0.9-1.1) 07/25/23 04:26 APTT 26 Seconds (21-31) 07/25/23 04:26 PTT Ratio 0.9 07/25/23 04:26 Sodium 139 mmol/L (136-145) 07/28/23 05:54 Potassium 3.3 mmol/L (3.5-5.1) L 07/28/23 05:54 Chloride 105 mmol/L (98-107) 07/28/23 05:54 Carbon Dioxide 24 mmol/L (21-32) 07/28/23 05:54 Anion Gap 10 (3-11) 07/28/23 05:54 BUN 24 mg/dl (6-23) H 07/28/23 05:54 Creatinine 0.90 mg/dl (0.6-1.4) 07/28/23 05:54 Est Cr Clr Drug Dosing 62.2 ml/min 07/28/23 05:54 Est GFR ( Amer) 95.1 ml/min 07/28/23 05:54 Est GFR (Non-Af Amer) 82.1 ml/min 07/28/23 05:54 BUN/Creatinine Ratio 26.7 (10-20) H 07/28/23 05:54 Glucose 102 mg/dl (70-99(Fasting)) H 07/28/23 05:54 POC Glucose 140 mg/dl (70-99) H 07/28/23 11:58 Estimat Average Glucose 209 mg/dl 07/26/23 06:33 Hemoglobin A1c 8.9 % (4.5-5.6) H 07/26/23 06:33 Lactate 2.0 mmol/L (0.4-2.0) 07/25/23 04:26 Calcium 8.4 mg/dl (8.6-10.3) L 07/28/23 05:54 Magnesium 1.7 mg/dl (1.7-2.4) 07/25/23 04:26 Total Bilirubin 0.6 mg/dl (0.2-1.0) 07/25/23 04:26 AST 13 U/L (13-39) 07/25/23 04:26 ALT 23 U/L (7-52) 07/25/23 04:26 Alkaline Phosphatase 41 U/L (34-104) 07/25/23 04:26 Troponin I High Sens 253.5 pg/ml (0-20) H* 07/27/23 05:57 B-Natriuretic Peptide 40 pg/ml (0-100) 07/25/23 04:26 Total Protein 7.3 gm/dl (6.0-8.3) 07/25/23 04:26 Albumin 4.3 gm/dl (3.4-5.0) 07/25/23 04:26 Globulin 3.0 gm/dl (2.5-4.0) 07/25/23 04:26 Albumin/Globulin Ratio 1.4 (0.9-2) 07/25/23 04:26 Procalcitonin < 0.05 ng/ml (0-0.5) 07/25/23 05:52 Urine Color Yellow 07/25/23 06:55 Urine Appearance Clear (Clear) 07/25/23 06:55 Urine pH 5.5 (4.5-7.5) 07/25/23 06:55 Ur Specific [place] 1.024 (1.000-1.030) 07/25/23 06:55 Urine Protein Negative (Negative) 07/25/23 06:55 Urine Glucose (UA) 2+ (Negative) H 07/25/23 06:55 Urine Ketones 1+ (Negative) H 07/25/23 06:55 Urine Blood Negative (Negative) 07/25/23 06:55 Urine Nitrite Negative (Negative) 07/25/23 06:55 Urine Bilirubin Negative (Negative) 07/25/23 06:55 Urine Urobilinogen Negative (Negative) 07/25/23 06:55 Ur Leukocyte Esterase Negative (Negative) 07/25/23 06:55 Nasal Influ A H1 2009 PCR DETECTED (NotDetected) A* 07/25/23 04:17 Adenovirus (PCR) Not Detected (NotDetected) 07/25/23 04:17 B. pertussis DNA (PCR) Not Detected (NotDetected) 07/25/23 04:17 B.parapertussis DNA PCR Not Detected (NotDetected) 07/25/23 04:17 C. pneumoniae DNA (PCR) Not Detected (NotDetected) 07/25/23 04:17 Coronavirus OC43 (PCR) Not Detected (NotDetected) 07/25/23 04:17 Coronavirus HKU1 (PCR) Not Detected (NotDetected) 07/25/23 04:17 Coronavirus 229E (PCR) Not Detected (NotDetected) 07/25/23 04:17 SARS-CoV-2 (PCR) Not Detected (NotDetected) 07/25/23 04:17 Coronavirus NL63 (PCR) Not Detected (NotDetected) 07/25/23 04:17 Human Metapneumovir PCR Not Detected (NotDetected) 07/25/23 04:17 Influenza Type B (PCR) Not Detected (NotDetected) 07/25/23 04:17 M. pneumoniae (PCR) Not Detected (NotDetected) 07/25/23 04:17 Parainfluenza 1 (PCR) Not Detected (NotDetected) 07/25/23 04:17 Parainfluenza 2 (PCR) Not Detected (NotDetected) 07/25/23 04:17 Parainfluenza 3 (PCR) Not Detected (NotDetected) 07/25/23 04:17 Parainfluenza 4 (PCR) Not Detected (NotDetected) 07/25/23 04:17 RSV (PCR) Not Detected (NotDetected) 07/25/23 04:17 Entero/Rhino (PCR) Not Detected (NotDetected) 07/25/23 04:17 Impressions Chest X-Ray 07/25/23 04:17 SINGLE VIEW CHEST CLINICAL HISTORY: Dyspnea FINDINGS: An AP, portable, upright chest radiograph is compared to study dated 05/13/2023. The examination is significantly degraded by portable technique and patient rotation. The heart is enlarged. The pulmonary vasculature is noncongested. There is bibasilar scarring/atelectasis. No airspace consolidation or large pleural effusion is identified. No pneumothorax is seen. The skeletal structures are osteopenic. The bony thorax is grossly intact. IMPRESSION: Cardiomegaly with no acute cardiopulmonary abnormality identified. ACT 112: Negative or not required by law. Electronically signed by: Hal Cruz M.D. 07/25/2023 7:06 AM Chest CTA 07/25/23 06:12 CT ANGIOGRAPHY OF THE CHEST, PULMONARY EMBOLUS PROTOCOL CLINICAL HISTORY: Cough. Shortness of breath. Chest pain. COMPARISON STUDY: Chest radiograph April 13, 2023 and July 25, 2023. TECHNIQUE: Following IV administration of 117 mL of Optiray, helical axial images of the chest were obtained utilizing the pulmonary embolus protocol. Maximal intensity projections and sagittal and coronal reformats were viewed on an independent 3D workstation. IV contrast was administered without complication. Automated exposure control was utilized for the study. A dose lowering technique was utilized adhering to the principles of ALARA. CT DOSE: 792.02 mGy.cm FINDINGS: No pulmonary emboli are identified. There is no thoracic aortic dissection. No enlarged thoracic lymph nodes are present. There is no pericardial effusion. Moderate coronary artery calcification is present. There is borderline cardiomegaly. Chronic moderate elevation right hemidiaphragm is unchanged. Secretions within right proximal intermedius as well as multiple occluded segmental bronchi within the right lower lobe are noted. Moderate right lower lobe airspace opacity is present with volume loss. Right middle lobe segmental opacity favors atelectasis. Mild left lower lobe opacity is present. There is no pneumothorax or pleural effusion. There is no cavitation. A gallstone within the gallbladder is incidentally noted. IMPRESSION: 1. No pulmonary emboli identified. 2. Moderate secretions within the bronchus intermedius and right lower lobe segmental bronchi. Right lower lobe airspace opacity with volume loss. This could reflect pneumonia/aspiration pneumonitis or atelectasis. 3. Stable chronic elevation of the right hemidiaphragm. ACT 112: Negative or not required by law. Electronically signed by: Osmany Wilson M.D. 07/25/2023 7:24 AM 07/25/23 06:12 CT angio chest PE protocol Stat Pending Results Patient Have Any Pending Studies at Discharge: No Discharge Instructions Given to Patient (Per Discharging Provider) PLEASE REFER TO YOUR NEW MEDICATION LIST AND FOLLOW INSTRUCTIONS CAREFULLY. YOUR NEW MEDICATIONS INCLUDE: LEVALBUTEROL/IPRATROPIUM- nebulizer treatment DOXYCYCLINE- antibiotic TAMIFLU- for influenza PREDNISONE- steroid for asthma flare up METOPROLOL- to control heart rate PLEASE CALL YOUR PRIMARY CARE PHYSICIAN OR RETURN TO THE ER IF WITH WORSENING OF SYMPTOMS, INCLUDING shortness of breath, fever/chills, cough, chest pain, leg swelling, etc. FOLLOW UP WITH PRIMARY CARE PHYSICIAN OUTLINED ABOVE. Total Time Total Time Spent Total Time Spent (In Minutes): >30 minutes
[2023-07-29] MEDS ORDERED: INSULIN HUMAN NPH SC SCH (09:00)
== END 2023-07-28 16:00 | disposition home or self-care (01) | DRG 193 ==
LOC: ED 04:02 → EDINP 06:17 → 2S 08:18

== ENCOUNTER 2023-12-29 21:28 | Inpatient (IN) ==
--- OUTSIDE RECORDS SUMMARY | 2023-12-29 21:35 | External Medical Summary | Summary of Care ---
Author Name Unknown Organization [facility] Address [address] [facility] [address] Phone [phone] Care Team Providers Care Sleep Lab Technologist Name Role Phone Shana Hamlin MD Primary Care Provider [phone] Reason for Visit * Reason Comments eRx-Medication Refill Encounter Details Date Type Department Care Team (Late st Contact Info) Description 12/08/[address] [facility] [address] [facility] [place] [address] Shana Hamlin MD [address] [facility] [place] [address] Allergies Active Allergy Reactions Criticality Noted Date Comments Gianluca Inhibitors Cough 06/12/2016 Cat Dander 03/31/2020 Ragweed 02/16/2020 Per patient's he is allergic to all weeds, trees, grasses documented as of this encounter (statuses as of 12/09/2023) Medications Medication Sig Dispensed Refills Start Date End Date Status ASPIRIN 81 MG PO TABS one tablet daily 0 Active Blood Glucose Monitoring Suppl (VenX MedicalUCH ULTRA SYSTEM) W/DEVICE KITIndications:Type 2 diabetes mellitus with hemoglobin A1c goal of less than 7.5% ([facility]) Use as directed 2 times a day. E11.9 1 Kit 0 6 Active Azelastine HCl 0.1 % nasal spray Administer 1 [place] into nostril 2 times a day. 30 [...] ONCE DAILY 100 Tablet 2 2 Active [facility] Glucose Meter Test Strips In Vitro Strip (Glucose Blood)Indications:T ype 2 diabetes mellitus with hemoglobin A1c goal of less than 8.0% ([facility]) Use up to four times daily to check blood glucose 200 Strip 3 3 Active Ipratropium-Albuter ol 0.5-2.5 (3) MG/3ML Inhalation Solution (Duoneb)Indications :Moderate persistent asthma with acute exacerbation INHALE THE CONTENTS OF ONE VIAL (3 ML) VIA NEBULIZER FOUR TIMES A DAY NEEDED. 360 mL 5 3 Active Benzonatate 200 MG Oral Capsule 0 3 Active Montelukast Sodium 10 MG Oral Tablet (Singulair)Indicati ons:Eosinophilic asthma Take 1 Tablet by mouth in the morning. 90 Tablet 2 3 Active glipiZIDE 5 MG Oral Tablet (Glucotrol) TAKE 1 TABLET BY MOUTH TWICE DAILY 30 minutes before a meal 180 Tablet 1 3 Active Mometasone Furoate 50 MCG/ACT Nasal SuspensionIndicatio ns:Chronic rhinitis administer 2 sprays into each nostril daily 51 g 0 3 Active OneTouch Delica Lancets 33GIndications:Type 2 diabetes mellitus with hemoglobin A1c goal of less than 7.5% ([facility]) USE DIRECTED TWICE DAILY. USE UP TO FOUR TIMES A DAY DIRECTED. 100 Each 10 3 Active Levalbuterol HCl 1.25 MG/3ML Inhalation Nebulization Solution (Xopenex) 0 3 Active Breo Ellipta 200-25 MCG/ACT Inhalation Aerosol Powder Breath Activated (fluticasone furoate-vilanterol) Indications:Severe persistent asthma dependent on systemic steroids INHALE 1 PUFF BY MOUTH EVERY MORNING 180 Blister Dosing Unit 3 4 Active amLODIPine Besylate 5 MG Oral Tablet (Norvasc)Indication s:HTN, goal below 140/90 TAKE 1 TABLET BY MOUTH EVERY MORNING 90 Tablet 3 4 Active Levothyroxine Sodium 100 MCG Oral Tablet (Levoxyl)Indication s:Acquired hypothyroidism TAKE 1 TABLET BY MOUTH EVERY MORNING (at least 30 minutes prior to breakfast or other meds) 90 Tablet 3 4 Active Doxazosin Mesylate 2 MG Oral Tablet (Cardura)Indication s:Urinary frequency TAKE ONE TABLET BY MOUTH ONE TIME DAILY IN THE EVENING 90 Tablet 3 4 Active Xolair 150 MG/ML Subcutaneous Solution Prefilled Syringe (Omalizumab)Indicat ions:Eosinophilic asthma INJECT 2 SYRINGES UNDER THE SKIN EVERY 4 WEEKS 2 mL 6 4 Active Losartan Potassium 25 MG Oral Tablet (Cozaar)Indications :HTN, goal below 140/90 Take 1 Tablet by mouth in the morning. 90 Tablet 3 4 Active Atorvastatin Calcium 20 MG Oral Tablet (Lipitor)Indication s:Dyslipidemia Take 1 Tablet by mouth in the morning. 90 Tablet 3 4 Active Metoprolol Succinate ER 25 MG Oral Tablet Extended Release 24 Hour (toPROL XL)Indications:HTN, goal below 140/90 Take 0.5 Tablets by mouth in the morning. 30 Tablet 5 4 Active Omeprazole 20 MG Oral Capsule Delayed Release (PriLOSEC) TAKE 1 CAPSULE BY MOUTH TWICE DAILY 30 MINUTES BEFORE A MEAL 180 Capsule 1 4 Active Albuterol Sulfate HFA 108 (90 Base) MCG/ACT Inhalation Aerosol SolutionIndications :Complicated acute bronchitis Inhale 2 Puffs by mouth every 4 hours as needed for Wheezing. 18 g 1 4 Active predniSONE 5 MG Oral Tablet (Deltasone) TAKE ONE TABLET BY MOUTH IN THE MORNING 90 Tablet 0 4 Active Ipratropium [place] 0.02 % Inhalation Solution (Atrovent) Inhale 2.5 mL via nebulizer in the morning and 2.5 mL at noon and 2.5 mL in the evening and 2.5 mL before bedtime. 75 mL 12 4 Active Tiotropium [place] Monohydrate 18 MCG Inhalation Capsule (Spiriva)Indication s:Severe persistent asthma dependent on systemic steroids INHALE 1 CAPSULE BY MOUTH ONCE DAILY VIA HANDIHALER . DO NOT SWALLOW 30 Capsule 5 4 Active Empagliflozin 25 MG Oral Tablet (Jardiance)Indicati ons:Type 2 diabetes mellitus with hemoglobin A1c goal of less than 8.0% ([facility]) Take 1 Tablet by mouth in the morning. 90 Tablet 3 4 Active Sodium Chloride 3 % Inhalation Nebulization Solution inhale contents of 1 vial via nebulizer every morning and before bedtime 240 mL 0 4 Active Sodium Chloride 3 % Inhalation Nebulization Solution Inhale 4ml via nebulizer in the morning and 4ml before bedtime 240 mL 1 4 12/09/19 24 Discontinued Hospital, Clinic, or Other Facility Administered Medication Ordered Dose Route Frequency Start Date End Date Status omalizumab (XOLAIR) inj 150 mgIndications:Poorly controlled severe persistent asthma with acute exacerbation 150 mg SC [id number] 05/13/2020 Active omalizumab (XOLAIR) inj 150 mgIndications:Poorly controlled severe persistent asthma with acute exacerbation 150 mg SC [id number] 05/13/2020 Active documented as of this encounter (statuses as of 12/09/2023) Active Problems Problem Noted Date Diagnosed Date [...] as of this encounter (statuses as of 12/09/2023) Resolved Problems Problem Noted Date Diagnosed Date Resolved Date Acute respiratory failure with hypoxia 09/27/2023 11/25/2023 Upper respiratory tract infection 09/27/2023 11/25/2023 Bronchiectasis with acute exacerbation 10/12/2022 11/21/2022 Personal history of Pseudomonas pneumonia 05/09/2022 11/21/2022 Chronic rhinitis 12/21/2020 02/05/2022 House dust mite allergy 12/21/2020/12/2022 FREDERICK (dyspnea on exertion) 05/09/2020 Diastolic dysfunction [...] as of this encounter (statuses as of 12/09/2023) Immunizations Name Administration Dates Next Due COVID-19 [...] Telephone Encounter - Shana Hamlin MD - 12/09/2023 8:08 AM EDTSigned Prescriptions: Disp Refills Sodium Chloride 3 % Inhalation Nebulizatio*240 mL 0 Sig: inhale contents of 1 vial via nebulizer every morning and before bedtime Authorizing Provider: SHANA HAMLIN * Telephone Encounter - Avani Murillo LPN - 12/09/2023 6:49 AM EDTPending Prescriptions: Disp Refills Sodium Chloride 3 % Inhalation Nebulizatio*240 mL 0 Sig: inhale contents of 1 vial via nebulizer every morning and before bedtime * Telephone Encounter - Avani Murillo LPN - 12/09/2023 6:49 AM EDT Did you pend patient's preferred pharmacy and medication before forwarding?yes Pharmacy: [id number] Pending Prescriptions: Disp Refills Sodium Chloride 3 % Inhalation Nebulizati*240 mL 0 Sig: inhale contents of 1 vial via nebulizer every morning and before bedtime Last Visit: 11/25/2023 (in office), Visit date not found (telemedicine) Next Visit: Visit date not found If no future appointments scheduled, and last appointment is greater than a year ago, please schedule patient for a follow-up appointment Last date the medication was ordered: 10/14/23 Is this request for a controlled substance?No Urine Drug Screen:No results found. However, due to the size of the patient record, not all encounters were searched. Please check Results Review for a complete set of results. Patient Phone Numbers Labs: Lab Results Component Value Date/Time CREAT 0.9 10/21/2023 10:26 AM CREAT 1.0 12/14/2019 11:27 AM POTASSIUM 3.6 10/21/2023 10:26 AM POTASSIUM 3.9 12/14/2019 11:27 AM POTASSIUM 4.0 10/21/1996 04:30 PM TSH 1.94 05/24/2023 09:33 AM TSH 0.88 05/06/2019 09:57 AM TSH 0.45 10/21/1996 04:30 PM LDLCALC 44 01/21/2018 12:00 AM LDLCALC 69 11/07/2013 08:37 AM LDLDIRECT 58 10/21/2023 10:26 AM LDLDIRECT 65 05/06/2019 09:57 AM ALT 21 05/29/2022 10:25 AM ALT 49 07/05/2016 12:00 AM ALT 48 06/09/2015 08:21 AM HGBA1C 10.4 (H) 11/06/2023 08:45 AM HGBA1C 6.3 (H) 12/14/2019 11:27 AM * Telephone Encounter - Zhang Tucker - 12/09/2023 5:28 AM EDTPending Prescriptions: Disp Refills Sodium Chloride 3 % Inhalation Nebulizatio*240 mL 0 Sig: inhalecontents of 1 vial via nebulizer every morning and before bedtime documented in this encounter Plan of Treatment Upcoming Encounters Date Type Department Care Team (Late st Contact Info) Description 02/07/2024 10:35 AM EDT Cardiac Studies Cardiac Studies, [facility] [address] [facility] [place] [address] Scheduled Procedures Name Priority Associated Diagnoses Date/Ti me COLONOSCOPY FLEXIBLE PROXIMAL DIAGNOSTIC Recall History of colon polyps Health Maintenance Due Date Last Done Comments Hepatitis C Screening 1963 Zoster Vaccines (1 of 2) 06/13/2012 04/18/2012 COVID-19 Vaccine (3 - Moderna risk series) 12/06/2020 11/08/2020, 10/08/2020 Depression Screening 04/15/2021 04/15/2020 Diabetic Eye Exam 06/21/2021 06/21/2020, , 10/21/2015, Additional history exists Colonoscopy 02/19/2022 02/19/2017, 11/27, 12/15/2013 Diabetic Foot Exam 07/10/2023 07/10/2022, 0 04/15/2020, 03/23/2019, Additional history exists HbA1c 05/07/2024 11/06/2023, 04/29, 11/21/2022, Additional history exists TSH 05/24/2024 05/24/2023, 11/0 07/2021, 03/20/2021, Additional history exists Albumin/Creatinine Ratio 10/20/2024 024, 07/13/2022, 01/21/2018, Additional history exists GFR 10/20/2024 10/21/2023, 11/0 07/2021, 03/20/2021, Additional history exists DTaP,Tdap,and Td Vaccines (3 - Td or Tdap) 02/06/2029 02/06/2019, 03/04/2007 Pneumococcal Vaccine: 65+ Years Completed 08/17/2014, 10/12/2011 RETIRED - COLONOSCOPY-EVERY 5 YRS AGES 18-100 Discontinued 02/19/2017, 12/15/2013, 12/15/2013 Influenza Vaccine (FLU shot) Completed 05/24/2023, 06/02/2022, 05/09/2020, Additional history exists GARDASIL-HPV IMMUNIZATION [...] filedocumented as of this encounter Care Teams Sleep Lab Technologist Relationship Specialty Start Date End Date Shana Hamlin MD [address] [place] [address] PCP - General Family Medicine 08/19/19 documented as of this encounter
--- OUTSIDE RECORDS SUMMARY | 2023-12-29 21:35 | External Medical Summary | Summary of Care ---
Author Name Unknown Organization [facility] Address [address] [facility] [place] [address] Phone [phone] Care Team Providers Care Ice Grinder Name Role Phone Enrico Mccauley MD Primary Care Provider [phone] Reason for Visit * Reason Onset Date Comments Medication Refill 12/14/2023 Encounter Details Date Type Department Care Team (Late st Contact Info) Description 12/14/2023 Refill Family Practice [facility] [address] [place] [address] Enrico Mccauley MD [address] [place] [address] Allergies Active Allergy Reactions Criticality Noted Date Comments Gianluca Inhibitors Cough 06/12/2016 Cat Dander 03/31/2020 Ragweed 02/16/2020 Per patient's he is allergic to all weeds, trees, grasses documented as of this encounter (statuses as of 12/14/2023) Medications Medication Sig Dispensed Refills Start Date End Date Status ASPIRIN 81 MG PO TABS one tablet daily 0 Active Blood Glucose Monitoring Suppl ([employer] ULTRA SYSTEM) W/DEVICE KITIndications:Type 2 diabetes mellitus with hemoglobin A1c goal of less than 7.5% ([facility]) Use as directed 2 times a day. E11.9 1 Kit 0 07/27/2016 Active Azelastine HCl 0.1 % nasal spray Administer 1 [place] into nostril 2 times a day. 30 [...] ONCE DAILY 100 Tablet 2 06/07/2022 Active [facility] Glucose Meter Test Strips In Vitro Strip (Glucose Blood)Indications:Ty pe 2 diabetes mellitus with hemoglobin A1c goal of less than 8.0% ([facility]) Use up to four times daily to check blood glucose 200 Strip 3 09/28/2022 Active Ipratropium-Albutero l 0.5-2.5 (3) MG/3ML Inhalation Solution (Duoneb)Indications: Moderate persistent asthma with acute exacerbation INHALE THE CONTENTS OF ONE VIAL (3 ML) VIA NEBULIZER FOUR TIMES A DAY NEEDED. 360 mL 5 10/28/2022 Active Benzonatate 200 MG Oral Capsule 0 05/14/2023 Active Montelukast Sodium 10 MG Oral Tablet (Singulair)Indicatio ns:Eosinophilic asthma Take 1 Tablet by mouth in the morning. 90 Tablet 2 06/06/2023 Active glipiZIDE 5 MG Oral Tablet (Glucotrol) TAKE 1 TABLET BY MOUTH TWICE DAILY 30 minutes before a meal 180 Tablet 1 06/24/2023 Active Mometasone Furoate 50 MCG/ACT Nasal SuspensionIndication s:Chronic rhinitis administer 2 sprays into each nostril daily 51 g 0 07/04/2023 Active OneTouch Delica Lancets 33GIndications:Type 2 diabetes mellitus with hemoglobin A1c goal of less than 7.5% ([facility]) USE DIRECTED TWICE DAILY. USE UP TO FOUR TIMES A DAY DIRECTED. 100 Each 10 07/11/2023 Active Levalbuterol HCl 1.25 MG/3ML Inhalation Nebulization Solution (Xopenex) 0 07/28/2023 Active Breo Ellipta 200-25 MCG/ACT Inhalation Aerosol Powder Breath Activated (fluticasone furoate-vilanterol)I ndications:Severe persistent asthma dependent on systemic steroids INHALE 1 PUFF BY MOUTH EVERY MORNING 180 Blister Dosing Unit 3 08/08/2023 Active amLODIPine Besylate 5 MG Oral Tablet (Norvasc)Indications :HTN, goal below 140/90 TAKE 1 TABLET BY MOUTH EVERY MORNING 90 Tablet 3 08/08/2023 Active Levothyroxine Sodium 100 MCG Oral Tablet (Levoxyl)Indications :Acquired hypothyroidism TAKE 1 TABLET BY MOUTH EVERY MORNING (at least 30 minutes prior to breakfast or other meds) 90 Tablet 3 08/15/2023 Active Doxazosin Mesylate 2 MG Oral Tablet (Cardura)Indications :Urinary frequency TAKE ONE TABLET BY MOUTH ONE TIME DAILY IN THE EVENING 90 Tablet 3 08/15/2023 Active Xolair 150 MG/ML Subcutaneous Solution Prefilled Syringe (Omalizumab)Indicati ons:Eosinophilic asthma INJECT 2 SYRINGES UNDER THE SKIN EVERY 4 WEEKS 2 mL 6 08/23/2023 Active Losartan Potassium 25 MG Oral Tablet (Cozaar)Indications: HTN, goal below 140/90 Take 1 Tablet by mouth in the morning. 90 Tablet 3 08/27/2023 Active Atorvastatin Calcium 20 MG Oral Tablet (Lipitor)Indications :Dyslipidemia Take 1 Tablet by mouth in the morning. 90 Tablet 3 09/06/2023 Active Metoprolol Succinate ER 25 MG Oral Tablet Extended Release 24 Hour (toPROL XL)Indications:HTN, goal below 140/90 Take 0.5 Tablets by mouth in the morning. 30 Tablet 5 09/17/2023 Active Omeprazole 20 MG Oral Capsule Delayed Release (PriLOSEC) TAKE 1 CAPSULE BY MOUTH TWICE DAILY 30 MINUTES BEFORE A MEAL 180 Capsule 1 10/02/2023 Active Albuterol Sulfate HFA 108 (90 Base) MCG/ACT Inhalation Aerosol SolutionIndications: Complicated acute bronchitis Inhale 2 Puffs by mouth every 4 hours as needed for Wheezing. 18 g 1 10/27/2023 Active predniSONE 5 MG Oral Tablet (Deltasone) TAKE ONE TABLET BY MOUTH IN THE MORNING 90 Tablet 0 11/01/2023 Active Ipratropium [place] 0.02 % Inhalation Solution (Atrovent) Inhale 2.5 mL via nebulizer in the morning and 2.5 mL at noon and 2.5 mL in the evening and 2.5 mL before bedtime. 75 mL 12 11/01/2023 Active Tiotropium [place] Monohydrate 18 MCG Inhalation Capsule (Spiriva)Indications :Severe persistent asthma dependent on systemic steroids INHALE 1 CAPSULE BY MOUTH ONCE DAILY VIA HANDIHALER . DO NOT SWALLOW 30 Capsule 5 11/07/2023 Active Empagliflozin 25 MG Oral Tablet (Jardiance)Indicatio ns:Type 2 diabetes mellitus with hemoglobin A1c goal of less than 8.0% ([facility]) Take 1 Tablet by mouth in the morning. 90 Tablet 3 11/25/2023 Active Sodium Chloride 3 % Inhalation Nebulization Solution inhale contents of 1 vial via nebulizer every morning and before bedtime 240 mL 0 12/09/2023 Active Hospital, Clinic, or Other Facility Administered Medication Ordered Dose Route Frequency Start Date End Date Status omalizumab (XOLAIR) inj 150 mgIndications:Poorly controlled severe persistent asthma with acute exacerbation 150 mg SC [id number] 05/13/2020 Active omalizumab (XOLAIR) inj 150 mgIndications:Poorly controlled severe persistent asthma with acute exacerbation 150 mg SC [id number] 05/13/2020 Active documented as of this encounter (statuses as of 12/14/2023) Active Problems Problem Noted Date Diagnosed Date [...] as of this encounter (statuses as of 12/14/2023) Resolved Problems Problem Noted Date Diagnosed Date [...] as of this encounter (statuses as of 12/14/2023) Immunizations Name Administration Dates Next Due COVID-19 [...] Notes * Telephone Encounter - Zhang Tucker - 12/14/2023 4:15 PM EDTRefused Prescriptions: Disp Refills Sodium Chloride 3 % Inhalation Nebulizatio*240 mL 0 Sig: inhalecontents of 1 vial via nebulizer every morning and before bedtimeRefused By: Jose TUCKER for Refusal: Duplicate Request documented in this encounter Plan of Treatment Upcoming Encounters Date Type Department Care Team (Late st Contact Info) Description 02/07/2024 10:35 AM EDT Cardiac Studies Cardiac Studies, [address] [place] [address] Scheduled Procedures Name Priority Associated Diagnoses Date/Ti [...] filedocumented as of this encounter Care Teams Ice Grinder Relationship Specialty Start Date End Date Enrico Mccauley MD [address] [facility] [place] [address] PCP - General Family Medicine 08/19/19 documented as of this encounter
--- OUTSIDE RECORDS SUMMARY | 2023-12-29 21:35 | External Medical Summary | Summary of Care ---
Author Name Unknown Organization [facility] Address [address] [facility] [place] [address] Phone [phone] Care Team Providers Care Tugboat Engineer Name Role Phone Shana Hamlin MD Primary Care Provider [phone] Reason for Visit * Reason Onset Date Comments Medication Refill 12/21/2023 Encounter Details Date Type Department Care Team (Late st Contact Info) Description 12/21/2023 Refill Family Practice [facility] [address] [place] [address] Shana Hamlin MD [address] [place] [address] Allergies Active Allergy Reactions Criticality Noted Date Comments Gianluca Inhibitors Cough 06/12/2016 Cat Dander 03/31/2020 Ragweed 02/16/2020 Per patient's he is allergic to all weeds, trees, grasses documented as of this encounter (statuses as of 12/25/2023) Medications Medication Sig Dispensed Refills Start Date End Date Status ASPIRIN 81 MG PO TABS one tablet daily Active Blood Glucose Monitoring Suppl (P[employer]ble ULTRA SYSTEM) W/DEVICE KITIndications:Type 2 diabetes mellitus with hemoglobin A1c goal of less than 7.5% ([facility]) Use as directed 2 times a day. E11.9 1 Kit 07/27/2016 Active Azelastine HCl 0.1 % nasal spray Administer 1 [place] into nostril 2 times a day. [...] blood glucose 200 Strip 3 09/28/2022 Active Ipratropium-Albuter ol 0.5-2.5 (3) MG/3ML Inhalation Solution (Duoneb)Indications :Moderate persistent asthma with acute exacerbation INHALE THE CONTENTS OF ONE VIAL (3 ML) VIA NEBULIZER FOUR TIMES A DAY NEEDED. 360 mL 5 10/28/2022 Active Benzonatate 200 MG Oral Capsule 05/14/2023 Active Montelukast Sodium 10 MG Oral Tablet (Singulair)Indicati ons:Eosinophilic asthma Take 1 Tablet by mouth in the morning. 90 Tablet 2 06/06/2023 Active Mometasone Furoate 50 MCG/ACT Nasal SuspensionIndicatio ns:Chronic rhinitis administer 2 sprays into each nostril daily 51 g 07/04/2023 Active OneTouch Delica Lancets 33GIndications:Type 2 diabetes mellitus with hemoglobin A1c goal of less than 7.5% ([facility]) USE DIRECTED TWICE DAILY. USE UP TO FOUR TIMES A DAY DIRECTED. 100 Each 10 07/11/2023 Active Levalbuterol HCl 1.25 MG/3ML Inhalation Nebulization Solution (Xopenex) 07/28/2023 Active Breo Ellipta 200-25 MCG/ACT Inhalation [...] BY MOUTH IN THE MORNING 90 Tablet 11/01/2023 Active Ipratropium [place] 0.02 % Inhalation Solution (Atrovent) Inhale 2.5 mL via nebulizer in the morning and 2.5 mL at noon and 2.5 mL in the evening and 2.5 mL before bedtime. 75 mL 12 11/01/2023 Active Tiotropium [place] Monohydrate 18 MCG Inhalation Capsule (Spiriva)Indication s:Severe persistent asthma dependent on systemic steroids INHALE 1 CAPSULE BY MOUTH ONCE DAILY VIA HANDIHALER . DO NOT SWALLOW 30 Capsule 5 11/07/2023 Active Empagliflozin 25 MG Oral Tablet (Jardiance)Indicati ons:Type 2 diabetes mellitus with hemoglobin A1c goal of less than 8.0% ([facility]) Take 1 Tablet by mouth in the morning. 90 Tablet 3 11/25/2023 Active Sodium Chloride 3 % Inhalation Nebulization Solution inhale contents of 1 vial via nebulizer every morning and before bedtime 240 mL 12/09/2023 Active glipiZIDE 5 MG Oral Tablet (Glucotrol) TAKE 1 TABLET BY MOUTH TWICE DAILY 30 minutes before a meal 180 Tablet 1 12/25/2023 Active glipiZIDE 5 MG Oral Tablet (Glucotrol) TAKE 1 TABLET BY MOUTH TWICE DAILY 30 minutes before a meal 180 Tablet 1 06/24/2023 4 Discontinu ed(Refill) Hospital, Clinic, or Other Facility Administered Medication Ordered Dose Route Frequency Start Date End Date Status omalizumab (XOLAIR) inj 150 mgIndications:Poorly controlled severe persistent asthma with acute exacerbation 150 mg SC [id number] 05/13/2020 Active omalizumab (XOLAIR) inj 150 mgIndications:Poorly controlled severe persistent asthma with acute exacerbation 150 mg SC [id number] 05/13/2020 Active documented as of this encounter (statuses as of 12/25/2023) Active Problems Problem Noted Date Diagnosed Date [...] as of this encounter (statuses as of 12/25/2023) Resolved Problems Problem Noted Date Diagnosed Date [...] as of this encounter (statuses as of 12/25/2023) Immunizations Name Administration Dates Next Due COVID-19 [...] encounter Miscellaneous Notes * Telephone Encounter - Ade Rizzo RP - 12/25/2023 10:51 AM EDT Signed Prescriptions: Disp Refills glipiZIDE 5 MG Oral Tablet (Glucotrol) 180 Ta*1 Sig: TAKE 1 TABLET BY MOUTH TWICE DAILY 30 minutes before a mealAuthorizing Provider: SHANA HAMLIN User: ADE RIZZO documented in this encounter Plan of Treatment Upcoming Encounters Date Type Department Care Team (Late st Contact Info) Description 02/07/2024 10:35 AM EDT Cardiac [address] [address] Scheduled Procedures Name Priority Associated Diagnoses Date/Ti [...] filedocumented as of this encounter Care Teams Tugboat Engineer Relationship Specialty Start Date End Date Shana Hamlin MD [address] [place] [address] PCP - General Family Medicine 08/19/19 documented as of this encounter
--- OUTSIDE RECORDS SUMMARY | 2023-12-29 21:35 | External Medical Summary | Summary of Care ---
Author Name Unknown Organization [facility] Address [address] [facility] [address] Phone [phone] Care Team Providers Care Taco Maker Name Role Phone Enrico Mccauley MD Primary Care Provider [phone] Reason for Visit * Reason Comments eRx-Medication Refill Encounter Details Date Type Department Care Team (Late st Contact Info) Description 12/21/2023 Refill Family Practice [facility] [address] [facility] [place] [address] Enrico Mccauley MD [address] [place] [address] Allergies Active Allergy Reactions Criticality Noted Date Comments Gianluca Inhibitors Cough 06/12/2016 Cat Dander 03/31/2020 Ragweed 02/16/2020 Per patient's he is allergic to all weeds, trees, grasses documented as of this encounter (statuses as of 12/24/2023) Medications Medication Sig Dispensed Refills Start Date End Date Status ASPIRIN 81 MG PO TABS one tablet daily Active Blood Glucose Monitoring Suppl (RocketickUCH ULTRA SYSTEM) W/DEVICE KITIndications:Type 2 diabetes mellitus with hemoglobin A1c goal of less than 7.5% ([facility]) Use as directed 2 times a day. E11.9 1 Kit 07/27/2016 Active Azelastine HCl 0.1 % nasal spray Administer 1 [place] into nostril 2 times a day. 30 [...] hemoglobin A1c goal of less than 8.0% ([facility]) Use up to four [...] hemoglobin A1c goal of less than 7.5% ([facility]) USE DIRECTED TWICE DAILY. [...] THE MORNING 90 Tablet 11/01/2023 Active Ipratropium [place] 0.02 % Inhalation Solution (Atrovent) Inhale 2.5 mL via nebulizer in the morning and 2.5 mL at noon and 2.5 mL in the evening and 2.5 mL before bedtime. 75 mL 12 11/01/2023 Active Tiotropium [place] Monohydrate 18 MCG Inhalation Capsule (Spiriva)Indications :Severe persistent asthma dependent on systemic steroids INHALE 1 CAPSULE BY MOUTH ONCE DAILY VIA HANDIHALER . DO NOT SWALLOW 30 Capsule 5 11/07/2023 Active Empagliflozin 25 MG Oral Tablet (Jardiance)Indicatio ns:Type 2 diabetes mellitus with hemoglobin A1c goal of less than 8.0% ([facility]) Take 1 Tablet by mouth in the morning. 90 Tablet 3 11/25/2023 Active Sodium Chloride 3 % Inhalation Nebulization Solution inhale contents of 1 vial via nebulizer every morning and before bedtime 240 mL 12/09/2023 Active Hospital, Clinic, or Other Facility Administered Medication Ordered Dose Route Frequency Start Date End Date Status omalizumab (XOLAIR) inj 150 mgIndications:Poorly controlled severe persistent asthma with acute exacerbation 150 mg SC [id number] 05/13/2020 Active omalizumab (XOLAIR) inj 150 mgIndications:Poorly controlled severe persistent asthma with acute exacerbation 150 mg SC [id number] 05/13/2020 Active documented as of this encounter (statuses as of 12/24/2023) Active Problems Problem Noted Date Diagnosed Date [...] as of this encounter (statuses as of 12/24/2023) Resolved Problems Problem Noted Date Diagnosed Date [...] as of this encounter (statuses as of 12/24/2023) Immunizations Name Administration Dates Next Due COVID-19 [...] Notes * Telephone Encounter - Ade Rizzo [facility] - 12/24/2023 7:18 AM EDT Refused Prescriptions: Disp Refills glipiZIDE 5 MG Oral Tablet (Glucotrol) 180 Ta*0 Sig: TAKE 1 TABLET BY MOUTH TWICE DAILY 30 minutes before a meal Refused By: ADE RIZZO Reason for Refusal: Duplicate Request * Telephone Encounter - Interface, [facility] - 12/23/2023 6:10 AM EDT Pending Prescriptions: Disp Refills glipiZIDE 5 MG Oral Tablet [Pharmacy Med N*180 Ta*0 Sig: TAKE 1TABLET BY MOUTH TWICE DAILY 30 minutes before a meal documented in this encounter Plan of Treatment Upcoming Encounters Date Type Department Care Team (Late st Contact Info) Description 02/07/2024 10:35 AM EDT Cardiac Studies Cardiac Studies, [address] [address] Scheduled Procedures Name Priority Associated Diagnoses [...] filedocumented as of this encounter Care Teams Taco Maker Relationship Specialty Start Date End Date Enrico Mccauley MD [address] [place] [address] PCP - General Family Medicine 08/19/19 documented as of this encounter
--- OUTSIDE RECORDS SUMMARY | 2023-12-29 21:36 | External Medical Summary | Summary of Care ---
Author Name Unknown Organization [facility] Address [address] [facility] [place] [address] Phone [phone] Care Team Providers Care Lube Man Name Role Phone Enrico Mccauley MD Primary Care Provider [phone] Reason for Visit * Reason Onset Date Comments Abnormal Lab Results 11/08/2023 Encounter Details Date Type Department Care Team (Late st Contact Info) Description 11/08/2023 Telephone Family Practice [facility] [address] [place] [address] Enrico Mccauley MD [address] [place] [address] Abnormal Lab Results Allergies Active Allergy Reactions Criticality Noted Date Comments Gianluca Inhibitors Cough 06/12/2016 Cat Dander 03/31/2020 Ragweed 02/16/2020 Per patient's he is allergic to all weeds, trees, grasses documented as of this encounter (statuses as of 11/21/2023) Medications Medication Sig Dispensed Refills Start Date End Date Status ASPIRIN 81 MG PO TABS one tablet daily 0 Active Blood Glucose Monitoring Suppl (ConceptoMed ULTRA SYSTEM) W/DEVICE KITIndications:Type 2 diabetes mellitus with hemoglobin A1c goal of less than 7.5% ([facility]) Use as directed 2 times a day. E11.9 1 Kit 0 07/27/2016 Active Azelastine HCl 0.1 % nasal spray Administer 1 [place] into nostril 2 times a day. 30 [...] hemoglobin A1c goal of less than 8.0% ([facility]) Use up to four times daily to check blood glucose 200 Strip 3 09/28/2022 Active Ipratropium-Albutero l 0.5-2.5 (3) MG/3ML Inhalation Solution (Duoneb)Indications: Moderate persistent asthma with acute exacerbation INHALE THE CONTENTS OF ONE VIAL (3 ML) VIA NEBULIZER FOUR TIMES A DAY NEEDED. 360 mL 5 10/28/2022 Active Arnuity Ellipta 100 MCG/ACT Inhalation Aerosol Powder Breath Activated (fluticasone Furoate)Indications: Eosinophilic asthma inhale 1 puff by mouth once daily - rinse mouth after use 90 Each 2 05/03/2023 Active Additional Information Patient not taking.Reported on 10/22/2023 Benzonatate 200 MG Oral Capsule 0 05/14/2023 [...] hemoglobin A1c goal of less than 7.5% ([facility]) USE DIRECTED TWICE DAILY. USE UP TO FOUR TIMES A DAY DIRECTED. 100 Each 10 07/11/2023 Active Levalbuterol HCl 1.25 MG/3ML Inhalation Nebulization Solution (Xopenex) 0 07/28/2023 Active Ipratropium [place] 0.02 % Inhalation Solution (Atrovent) 2.5 mL. 0 07/28/2023 Activ e Breo Ellipta 200-25 MCG/ACT Inhalation Aerosol Powder [...] A MEAL 180 Capsule 1 10/02/2023 Active Sodium Chloride 3 % Inhalation Nebulization Solution Inhale 4ml via nebulizer in the morning and 4ml before bedtime 240 mL 1 10/14/2023 Active predniSONE 10 MG Oral Tablet (Deltasone)Indicatio ns:Severe persistent asthma with acute exacerbation,Shortne ss of breath,Bronchiectasi s with acute exacerbation (HCC) Take 5 tabs for 2 days, 4 tabs for 2 days, 3 tabs for 2 days, 2 tabs for 2 days 1 tab for 2 days 30 Tablet 0 10/22/2023 Active Albuterol Sulfate HFA 108 (90 Base) MCG/ACT Inhalation Aerosol SolutionIndications: Complicated acute bronchitis Inhale 2 Puffs by mouth every 4 hours as needed for Wheezing. 18 g 1 10/27/2023 Active predniSONE 5 MG Oral Tablet (Deltasone) TAKE ONE TABLET BY MOUTH IN THE MORNING 90 Tablet 0 11/01/2023 Active Ipratropium [place] 0.02 % Inhalation Solution (Atrovent) Inhale 2.5 mL via nebulizer in the morning and 2.5 mL at noon and 2.5 mL in the evening and 2.5 mL before bedtime. 75 mL 12 11/01/2023 Active Tiotropium [place] Monohydrate 18 MCG Inhalation Capsule (Spiriva)Indications :Severe persistent asthma dependent on systemic steroids INHALE 1 CAPSULE BY MOUTH ONCE DAILY VIA HANDIHALER . DO NOT SWALLOW 30 Capsule 5 11/07/2023 Active Hospital, Clinic, or Other Facility Administered Medication Ordered Dose Route Frequency Start Date End Date Status omalizumab (XOLAIR) inj 150 mgIndications:Poorly controlled severe persistent asthma with acute exacerbation 150 mg SC [id number] 05/13/2020 Active omalizumab (XOLAIR) inj 150 mgIndications:Poorly controlled severe persistent asthma with acute exacerbation 150 mg SC [id number] 05/13/2020 Active documented as of this encounter (statuses as of 11/21/2023) Active Problems Problem Noted Date Diagnosed Date Acute respiratory failure with hypoxia 4 Upper respiratory tract infection 09/27/2023 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 She said they would be open to trying the Metformin ER formulation which cuts down on the side effects, but would like to discuss with provider at upcoming appointment Otherwise, Jardiance would be the preferred option. Thank You, Maren Flowers [facility] Clinical Pharmacist Centralized Clinical Pharmacy Services (CCPS) (formerly Telepharmacy) [phone] 11/21/2023, 11:45 AM * Telephone Encounter - Maren Flowers [facility] - 11/08/2023 11:59 AM EDT MyG message sent to patient with the following note: I reviewed your lab results and your A1c has increased to 10.4. I'm reaching out with a couple questions. I see you were on Metformin in the past, but stopped it due to diarrhea. Would you be agreeable to restarting it in the extended release formulation which cuts down on that side effect? If no agreeable to Metformin, would you be agreeable to staring another medication called Jardiance? Would you be agreeable to working with the pharmacist here in our clinic to help adjust your medications to lower the A1c? Thank You, Maren Flowers [facility] Clinical Pharmacist Centralized Clinical Pharmacy Services (CCPS) (formerly Telepharmacy) [phone] 11/08/2023, 11:59 AM documented in this encounter Plan of Treatment Upcoming Encounters Date Type Department Care Team (Late st Contact Info) Description 11/25/2023 10:20 AM EDT Office Visit Family Practice [facility] [address] [place] [id number] Enrico Mccauley MD [address] [employer] [place] [address] 02/07/2024 10:35 AM EDT Cardiac Studies Cardiac Studies, [facility] [address] [address] [place] [address] Scheduled Procedures Name Priority Associated Diagnoses Date/Ti [...] YRS AGES 18-100 02/19/2022 02/19/2017, 12/15/2013, 12/15/2013 Diabetic Foot Exam 07/10/2023 07/10/2022, 0 [...] filedocumented as of this encounter Care Teams Lube Man Relationship Specialty Start Date End Date Enrico Mccauley MD [address] [place] [address] PCP - General Family Medicine 08/19/19 documented as of this encounter
--- OUTSIDE RECORDS SUMMARY | 2023-12-29 21:36 | External Medical Summary | Summary of Care ---
Author Name Unknown Organization [facility] Address [address] [facility] [place] [address] Phone [phone] Care Team Providers Care Conference Service Coordinator Name Role Phone Enrico Mccauley MD Primary Care Provider [phone] Reason for Visit * Reason Onset Date Comments Abnormal Lab Results 11/08/2023 Encounter Details Date Type Department Care Team (Late st Contact Info) Description 11/08/2023 Telephone Family Practice [facility] [address] [place] [address] Enrico Mccauley MD [address] [place] [address] Abnormal Lab Results Allergies Active Allergy Reactions Criticality Noted Date Comments Gianluca Inhibitors Cough 06/12/2016 Cat Dander 03/31/2020 Ragweed 02/16/2020 Per patient's he is allergic to all weeds, trees, grasses documented as of this encounter (statuses as of 11/26/2023) Medications Medication Sig Dispensed Refills Start Date End Date Status ASPIRIN 81 MG PO TABS one tablet daily 0 Active Blood Glucose Monitoring Suppl (Nirvanix ULTRA SYSTEM) W/DEVICE KITIndications:Typ e 2 diabetes mellitus with hemoglobin A1c goal of less than 7.5% ([facility]) Use as directed 2 times a day. E11.9 1 Kit 0 6 Active Azelastine HCl 0.1 % nasal spray Administer 1 [place] into nostril 2 times a day. 30 mL 5 9 Active Tadalafil (CIALIS) 20 MG TabletIndications: Erectile dysfunction, unspecified erectile dysfunction type Take 1 [...] Active SUMAtriptan Succinate 25 MG Oral Tablet (Imitrex)Indicatio ns:Migraine variant take 2 tablets by mouth at onset of migraine, and 1 tablet every 2 hours if needed; not more than 5 tablets in 24 hours 6 Tablet 11 2 Active Vitamin B-12 1000 MCG Oral Tablet TAKE 1 TABLET BY MOUTH ONCE DAILY 100 Tablet 2 2 Active [facility] Glucose Meter Test Strips In Vitro Strip (Glucose Blood)Indications: Type 2 diabetes mellitus with hemoglobin A1c goal of less than 8.0% ([facility]) Use up to four times daily to check blood glucose 200 Strip 3 3 Active Ipratropium-[place] rol 0.5-2.5 (3) MG/3ML Inhalation Solution (Duoneb)Indication s:Moderate persistent asthma with acute exacerbation INHALE THE CONTENTS OF ONE VIAL (3 ML) VIA NEBULIZER FOUR TIMES A DAY NEEDED. 360 mL 5 3 Active Benzonatate 200 MG Oral Capsule 0 3 Active Montelukast Sodium 10 MG Oral Tablet (Singulair)Indicat ions:Eosinophilic asthma Take 1 Tablet by mouth in the morning. 90 Tablet 2 3 Active glipiZIDE 5 MG Oral Tablet (Glucotrol) TAKE 1 TABLET BY MOUTH TWICE DAILY 30 minutes before a meal 180 Tablet 1 3 Active Mometasone Furoate 50 MCG/ACT Nasal SuspensionIndicati ons:Chronic rhinitis administer 2 sprays into each nostril daily 51 g 0 3 Active OneTouch Delica Ronmimi 33GIndications:Typ e 2 diabetes mellitus with hemoglobin A1c goal of less than 7.5% ([facility]) USE DIRECTED TWICE DAILY. USE UP TO FOUR TIMES A DAY DIRECTED. 100 Each 10 3 Active Levalbuterol HCl 1.25 MG/3ML Inhalation Nebulization Solution (Xopenex) 0 3 Active Breo Ellipta 200-25 MCG/ACT Inhalation Aerosol Powder Breath Activated (fluticasone furoate-vilanterol )Indications:Sever e persistent asthma dependent on systemic steroids INHALE 1 PUFF BY MOUTH EVERY MORNING 180 Blister Dosing Unit 3 4 Active amLODIPine Besylate 5 MG Oral Tablet (Norvasc)Indicatio ns:HTN, goal below 140/90 TAKE 1 TABLET BY MOUTH EVERY MORNING 90 Tablet 3 4 Active Levothyroxine Sodium 100 MCG Oral Tablet (Levoxyl)Indicatio ns:Acquired hypothyroidism TAKE 1 TABLET BY MOUTH EVERY MORNING (at least 30 minutes prior to breakfast or other meds) 90 Tablet 3 4 Active Doxazosin Mesylate 2 MG Oral Tablet (Cardura)Indicatio ns:Urinary frequency TAKE ONE TABLET BY MOUTH ONE TIME DAILY IN THE EVENING 90 Tablet 3 4 Active Xolair 150 MG/ML Subcutaneous Solution Prefilled Syringe (Omalizumab)Indica tions:Eosinophilic asthma INJECT 2 SYRINGES UNDER THE SKIN EVERY 4 WEEKS 2 mL 6 4 Active Losartan Potassium 25 MG Oral Tablet (Cozaar)Indication s:HTN, goal below 140/90 Take 1 Tablet by mouth in the morning. 90 Tablet 3 4 Active Atorvastatin Calcium 20 MG Oral Tablet (Lipitor)Indicatio ns:Dyslipidemia Take 1 Tablet by mouth in the morning. 90 Tablet 3 4 Active Metoprolol Succinate ER 25 MG Oral Tablet Extended Release 24 Hour (toPROL XL)Indications:HTN , goal below 140/90 Take 0.5 Tablets by mouth in the morning. 30 Tablet 5 4 Active Omeprazole 20 MG Oral Capsule Delayed Release (PriLOSEC) TAKE 1 CAPSULE BY MOUTH TWICE DAILY 30 MINUTES BEFORE A MEAL 180 Capsule 1 4 Active Sodium Chloride 3 % Inhalation Nebulization Solution Inhale 4ml via nebulizer in the morning and 4ml before bedtime 240 mL 1 4 Active Albuterol Sulfate HFA 108 (90 Base) MCG/ACT Inhalation Aerosol SolutionIndication s:Complicated acute bronchitis Inhale 2 Puffs by mouth every 4 hours as needed for Wheezing. 18 g 1 4 Active predniSONE 5 MG Oral Tablet (Deltasone) TAKE ONE TABLET BY MOUTH IN THE MORNING 90 Tablet 0 4 Active Ipratropium [place] 0.02 % Inhalation Solution (Atrovent) Inhale 2.5 mL via nebulizer in the morning and 2.5 mL at noon and 2.5 mL in the evening and 2.5 mL before bedtime. 75 mL 12 4 Active Tiotropium [place] Monohydrate 18 MCG Inhalation Capsule (Spiriva)Indicatio ns:Severe persistent asthma dependent on systemic steroids INHALE 1 CAPSULE BY MOUTH ONCE DAILY VIA HANDIHALER . DO NOT SWALLOW 30 Capsule 5 4 Active Arnuity Ellipta 100 MCG/ACT Inhalation Aerosol Powder Breath Activated (fluticasone Furoate)Indication s:Eosinophilic asthma inhale 1 puff by mouth once daily - rinse mouth after use 90 Each 2 3 11/25/19 24 Discontinued(Di scharged) Ipratropium [place] 0.02 % Inhalation Solution (Atrovent) 2.5 mL. 0 3 11/25/19 24 Discontinued predniSONE 20 MG Oral Tablet (Deltasone) Take 2 Tablets by mouth daily for 5 days, THEN 1 Tablet daily for 5 days. 15 Tablet 0 4 11/25/19 24 Discontinued(Re fill) predniSONE 10 MG Oral Tablet (Deltasone)Indicat ions:Severe persistent asthma with acute exacerbation,Short ness of breath,Bronchiecta sis with acute exacerbation (HCC) Take 5 tabs for 2 days, 4 tabs for 2 days, 3 tabs for 2 days, 2 tabs for 2 days 1 tab for 2 days 30 Tablet 0 4 11/25/19 24 Discontinued Hospital, Clinic, or Other Facility Administered Medication Ordered Dose Route Frequency Start Date End Date Status omalizumab (XOLAIR) inj 150 mgIndications:Poorly controlled severe persistent asthma with acute exacerbation 150 mg SC [id number] 05/13/2020 Active omalizumab (XOLAIR) inj 150 mgIndications:Poorly controlled severe persistent asthma with acute exacerbation 150 mg SC [id number] 05/13/2020 Active documented as of this encounter (statuses as of 11/26/2023) Active Problems Problem Noted Date Diagnosed Date [...] as of this encounter (statuses as of 11/26/2023) Resolved Problems Problem Noted Date Diagnosed Date [...] as of this encounter (statuses as of 11/26/2023) Immunizations Name Administration Dates Next Due COVID-19 [...] Notes * Telephone Encounter - Maren Flowers [facility] - 11/21/2023 11:42 AM EDT Spoke with [...] the preferred option. Thank You, Maren Flowers [facility] Clinical Pharmacist Centralized Clinical Pharmacy Services (CCPS) (formerly Telepharmacy) [phone] 11/21/2023, 11:45 AM * Telephone Encounter - Maren Flowers [facility] - 11/08/2023 11:59 AM EDT Basic6 message sent to patient with the following [...] lower the A1c? Thank You, Maren Flowers [facility] Clinical Pharmacist Centralized Clinical Pharmacy Services (CCPS) (formerly Telepharmacy) [phone] 11/08/2023, 11:59 AM documented in this encounter Plan of Treatment Upcoming Encounters Date Type Department Care Team (Late st Contact Info) Description 02/07/2024 10:35 AM EDT Cardiac Studies Cardiac Studies, [facility] [address] [facility] [place] [address] Scheduled Procedures Name Priority Associated Diagnoses [...] filedocumented as of this encounter Care Teams Conference Service Coordinator Relationship Specialty Start Date End Date Enrico Mccauley MD [address] [facility] [place] [address] PCP - General Family Medicine 08/19/19 documented as of this encounter
--- OUTSIDE RECORDS SUMMARY | 2023-12-29 21:36 | External Medical Summary | Summary of Care ---
Author Name Unknown Organization [facility] Address [address] [facility] [place] [address] Phone [phone] Care Team Providers Care Leather Goods Ii Assembler Name Role Phone Enrico Mccauley MD Primary Care Provider [phone] Encounter Details Date Type Department Care Team (Late st Contact Info) Description 11/01/2023 Telephone Family Practice [facility] [address] [place] [address] Enrico Mccauley MD [address] [place] [id number] Allergies Active Allergy Reactions Criticality Noted Date Comments Gianluca Inhibitors Cough 06/12/2016 Cat Dander 03/31/2020 Ragweed 02/16/2020 Per patient's he is allergic to all weeds, trees, grasses documented as of this encounter (statuses as of 11/01/2023) Medications Medication Sig Dispensed Refills Start Date End Date Status ASPIRIN 81 MG PO TABS one tablet daily 0 Active Blood Glucose Monitoring Suppl (LuristicUCH ULTRA SYSTEM) W/DEVICE KITIndications:Type 2 diabetes mellitus with hemoglobin A1c goal of less than 7.5% ([facility]) Use as directed 2 times a day. E11.9 1 Kit 0 07/27/2016 Active Azelastine HCl 0.1 % nasal spray Administer 1 [place] into nostril 2 times a day. 30 [...] goal of less than 8.0% ([facility]) Use up to four times [...] nostril daily 51 g 0 07/04/2023 Active OneCarolyn Colon Lancets 33GIndications:Type 2 diabetes mellitus with hemoglobin A1c goal of less than 7.5% ([facility]) USE DIRECTED TWICE DAILY. USE UP TO FOUR TIMES A DAY DIRECTED. 100 Each 10 07/11/2023 Active Levalbuterol HCl 1.25 MG/3ML Inhalation Nebulization Solution (Xopenex) 0 07/28/2023 Active Ipratropium [place] 0.02 % Inhalation Solution (Atrovent) 2.5 mL. [...] the morning. 30 Tablet 5 09/17/2023 Active Tiotropium [place] Monohydrate 18 MCG Inhalation Capsule (Spiriva)Indications :Severe persistent asthma dependent on systemic steroids INHALE 1 CAPSULE BY MOUTH ONCE DAILY VIA HANDIHALER . DO NOT SWALLOW 30 Capsule 0 10/01/2023 Active Omeprazole 20 MG Oral Capsule Delayed Release (PriLOSEC) TAKE 1 CAPSULE BY MOUTH TWICE DAILY 30 MINUTES BEFORE A MEAL 180 Capsule 1 10/02/2023 Active Sodium Chloride 3 % Inhalation Nebulization Solution Inhale 4ml via nebulizer in the morning and 4ml before bedtime 240 mL 1 10/14/2023 Active Cefdinir 300 MG Oral Capsule (Omnicef)Indications :Severe persistent asthma with acute exacerbation,Shortne ss of breath,Bronchiectasi s with acute exacerbation (HCC) Take 1 Capsule by mouth in the morning and 1 Capsule before bedtime. Do all this for 10 days. For 10 days.. 20 Capsule 0 10/22/2023 Active predniSONE 10 MG Oral Tablet (Deltasone)Indicatio [...] MORNING 90 Tablet 0 11/01/2023 Active Ipratropium [place] 0.02 % Inhalation Solution (Atrovent) Inhale 2.5 mL via nebulizer in the morning and 2.5 mL at noon and 2.5 mL in the evening and 2.5 mL before bedtime. 75 mL 12 11/01/2023 Active Hospital, Clinic, or Other Facility Administered Medication Ordered Dose Route Frequency Start Date End Date Status omalizumab (XOLAIR) inj 150 mgIndications:Poorly controlled severe persistent asthma with acute exacerbation 150 mg SC [id number] 05/13/2020 Active omalizumab (XOLAIR) inj 150 mgIndications:Poorly controlled severe persistent asthma with acute exacerbation 150 mg SC [id number] 05/13/2020 Active documented as of this encounter (statuses as of 11/01/2023) Active Problems Problem Noted Date Diagnosed Date [...] as of this encounter (statuses as of 11/01/2023) Resolved Problems Problem Noted Date Diagnosed Date [...] as of this encounter (statuses as of 11/01/2023) Immunizations Name Administration Dates Next Due COVID-19 [...] Influenza, Split, I IV3, With Preserve, Inj 05/28/2014,05/16/2013,05/17/2012,11/01/2011,05/12/2010,06/15/2009,04/29/20 06 TDAP (age 10 and older)(Boostrix) 02/06/2019 [...] Care Team (Late st Contact Info) Description 11/06/2023 9:00 AM EDT Laboratory Laboratory, [facility] [address] [place] [phone] GonsalezIsha mercer [facility] [address] [place] [id number] 11/25/2023 10:20 AM EDT Office Visit Family Practice [facility] [address] [place] [address] Enrico Mccauley MD [address] [place] [address] 02/07/2024 10:35 AM EDT Cardiac Studies Cardiac Studies, [facility] [address] [place] [address] Scheduled Procedures Name Priority Associated Diagnoses Date/Ti [...] 0 04/15/2020, 03/23/2019, Additional history exists HbA1c 11/23/2023 05/24/2023, 04/2 [...] filedocumented as of this encounter Care Teams Leather Goods Ii Assembler Relationship Specialty Start Date End Date Enrico Mccauley MD [address] [place] [address] PCP - General Family Medicine 08/19/19 documented as of this encounter
--- OUTSIDE RECORDS SUMMARY | 2023-12-29 21:36 | External Medical Summary | Summary of Care ---
Author Name Unknown Organization [facility] Address [address] [facility] [place] [address] Phone [phone] Care Team Providers Care Conche Loader And Unloader Name Role Phone Enrico Mccauley MD Primary Care Provider [phone] Encounter Details Date Type Department Care Team (Late st Contact Info) Description 11/15/2023 9:30 AM EDT Nurse Only Pulmonary Medicine, [facility] [address] [facility] [place] [address] Gw, Nurse Pulmonary [address] [facility] [place] [address] Arrived Allergies Active Allergy Reactions Criticality Noted Date Comments Gianluca Inhibitors Cough 06/12/2016 Cat Dander 03/31/2020 Ragweed 02/16/2020 Per patient's he is allergic to all weeds, trees, grasses documented as of this encounter (statuses as of 11/15/2023) Medications Medication Sig Dispensed Refills Start Date End Date Status ASPIRIN 81 MG PO TABS one tablet daily 0 Active Blood Glucose Monitoring Suppl (Bootstrap SoftwareUCH ULTRA SYSTEM) W/DEVICE KITIndications:Type 2 diabetes mellitus with hemoglobin A1c goal of less than 7.5% (HCC) Use as directed 2 times a day. E11.9 1 Kit 0 07/27/2016 Active Azelastine HCl 0.1 % nasal spray Administer 1 [place] into nostril 2 times a day. 30 [...] goal of less than 8.0% ([facility]) Use up to four times daily [...] daily 51 g 0 07/04/2023 Active OneTouch Darlene Lancets 33GIndications:Type 2 diabetes mellitus with hemoglobin A1c goal of less than 7.5% ([facility]) USE DIRECTED TWICE DAILY. USE UP TO FOUR TIMES A DAY DIRECTED. 100 Each 10 07/11/2023 Active Levalbuterol HCl 1.25 MG/3ML Inhalation Nebulization Solution (Xopenex) 0 07/28/2023 Active Ipratropium [place] 0.02 % Inhalation Solution (Atrovent) 2.5 mL. [...] MORNING 90 Tablet 0 11/01/2023 Active Ipratropium [place] 0.02 % Inhalation Solution (Atrovent) Inhale 2.5 mL via nebulizer in the morning and 2.5 mL at noon and 2.5 mL in the evening and 2.5 mL before bedtime. 75 mL 12 11/01/2023 Active Tiotropium [place] Monohydrate 18 MCG Inhalation Capsule (Spiriva)Indications :Severe persistent asthma dependent on systemic steroids INHALE 1 CAPSULE BY MOUTH ONCE DAILY VIA HANDIHALER . DO NOT SWALLOW 30 Capsule 5 11/07/2023 Active Hospital, Clinic, or Other Facility Administered Medication Ordered Dose Route Frequency Start Date End Date Status omalizumab (XOLAIR) inj 150 mgIndications:Poorly controlled severe persistent asthma with acute exacerbation 150 mg SC [id number] 05/13/2020 Active omalizumab (XOLAIR) inj 150 mgIndications:Poorly controlled severe persistent asthma with acute exacerbation 150 mg SC [id number] 05/13/2020 Active documented as of this encounter (statuses as of 11/15/2023) Active Problems Problem Noted Date Diagnosed Date Acute respiratory failure with hypoxia Upper respiratory tract infection 09/27/2023 Neuromuscular respiratory [...] as of this encounter (statuses as of 11/15/2023) Resolved Problems Problem Noted Date Diagnosed Date [...] as of this encounter (statuses as of 11/15/2023) Immunizations Name Administration Dates Next Due COVID-19 [...] 8:42 AM EDT Sexual Orientation Straight 04/15/2020 8 :42 AM EDT Job Start Date Occupation Industry Not on file Not on file Not on file documented as of this encounter Last Filed Vital Signs Vital Sign Reading Time Taken Comments Blood Pressure - - Pulse 99 11/15/2023 9:27 AM EDT Temperature - - Respiratory Rate 16 11/15/2023 9:27 AM EDT Oxygen Saturation 94% 11/15/2023 9:27 AM EDT Inhaled Oxygen Concentration - - Weight - - Height - - Body Mass Index - - documented in this encounter Plan of Treatment Upcoming Encounters Date Type Department Care Team (Late st Contact Info) Description 11/25/2023 10:20 AM EDT Office Visit Family Practice [facility] [address] [place] [id number] Enrico Mccauley MD [address] [place] [address] 02/07/2024 10:35 AM EDT Cardiac Studies Cardiac Studies, [facility] [address] [place] [id number] Scheduled Procedures Name Priority Associated Diagnoses Date/Ti [...] 11/21/2022, Additional history exists TSH 05/24/2024 05/24/2023, 110 07/2021, 03/20/2021, Additional history exists Albumin/Creatinine Ratio 10/20/2024 024, 07/13/2022, 01/21/2018, Additional history exists GFR 10/20/2024 10/21/2023, 110 07/2021, 03/20/2021, Additional history exists DTaP,Tdap,and Td [...] (XOLAIR) inj 150 mg 150 mg, Subcutaneous, [id number], First dose on Sat05/13/20 at 1315, Until Discontinued, TOTAL DOSE = 150 mg Given 11/15/2023 9:30 AM EDT 150 mg Arm Right Upper Given 10/04/2023 10:06 AM EST 150 mg A rm Right Upper Given 09/04/2023 9:11 AM EST 150 mg Ar m Right Upper omalizumab (XOLAIR) inj 150 mg 150 mg, Subcutaneous, [id number], First dose on Sat05/13/20 at 1315, Until Discontinued, TOTAL DOSE = 150 mg Given 11/15/2023 9:29 AM EDT 150 mg Arm Left Upper Given 10/04/2023 10:05 AM EST 150 mg A rm Left Upper Given 09/04/2023 9:10 AM EST 150 mg Ar m Left Upper documented in this encounter Care Teams Conche Loader And Unloader Relationship Specialty Start Date End Date Enrico Mccauley MD [address] [place] [id number] PCP - General Family Medicine 08/19/19 documented as of this encounter
--- OUTSIDE RECORDS SUMMARY | 2023-12-29 21:36 | External Medical Summary | Summary of Care ---
Author Name Unknown Organization [facility] Address [address] [facility] [place] [address] Phone [phone] Care Team Providers Care Fur Drummer Name Role Phone Enrico Mccauley MD Primary Care Provider [phone] Reason for Visit * Reason Comments Outpatient Testing Encounter Details Date Type Department Care Team (Late st Contact Info) Description 11/06/2023 9:00 AM EDT Laboratory Laboratory, [facility] [address] [facility] [address] [facility] [address] Encounter for long-term (current) use of medications Allergies Active Allergy Reactions Criticality Noted Date Comments Gianluca Inhibitors Cough 06/12/2016 Cat Dander 03/31/2020 Ragweed 02/16/2020 Per patient's he is allergic to all weeds, trees, grasses documented as of this encounter (statuses as of 11/06/2023) Medications Medication Sig Dispensed Refills Start Date End Date Status ASPIRIN 81 MG PO TABS one tablet daily 0 Active Blood Glucose Monitoring Suppl (Letyano ULTRA SYSTEM) W/DEVICE KITIndications:Type 2 diabetes mellitus with hemoglobin A1c goal of less than 7.5% ([facility]) Use as directed 2 times a day. E11.9 1 Kit 0 07/27/2016 Active Azelastine HCl 0.1 % nasal spray Administer 1 [place] into nostril 2 times a day. 30 [...] hemoglobin A1c goal of less than 8.0% ([facility]) Use up to four times daily to [...] hemoglobin A1c goal of less than 7.5% ([facility]) USE DIRECTED TWICE DAILY. USE UP TO FOUR TIMES A DAY DIRECTED. 100 Each 10 07/11/2023 Active Levalbuterol HCl 1.25 MG/3ML Inhalation Nebulization Solution (Xopenex) 0 07/28/2023 Active Ipratropium [place] 0.02 % Inhalation Solution (Atrovent) 2.5 mL. [...] morning. 30 Tablet 5 09/17/2023 Active Tiotropium [place] Monohydrate 18 MCG Inhalation Capsule (Spiriva)Indications :Severe [...] MORNING 90 Tablet 0 11/01/2023 Active Ipratropium [place] 0.02 % Inhalation Solution (Atrovent) Inhale 2.5 [...] asthma with acute exacerbation 150 mg SC [id number] 05/13/2020 Active omalizumab (XOLAIR) inj 150 mgIndications:Poorly controlled severe persistent asthma with acute exacerbation 150 mg SC [id number] 05/13/2020 Active documented as of this encounter (statuses as of 11/06/2023) Active Problems Problem Noted Date Diagnosed Date Acute respiratory failure with hypoxia 03/01/202 4 Upper respiratory tract infection 09/27/2023 Neuromuscular [...] as of this encounter (statuses as of 11/06/2023) Resolved Problems Problem Noted Date Diagnosed Date [...] as of this encounter (statuses as of 11/06/2023) Immunizations Name Administration Dates Next Due COVID-19 [...] 10:20 AM EDT Office Visit Family Practice [facility] [address] [place] [address] Enrico Mccauley MD [address] [place] [address] 02/07/2024 10:35 AM EDT Cardiac Studies Cardiac Studies, [facility] [address] [place] [phone] Pending Results Name Type Priority Associated Diagnoses Date /Time HEMOGLOBIN A1C Lab Routine Encounter for long-term (current) use of medications 11/06/2023 8:45 AM EDT Scheduled Procedures Name Priority Associated [...] Diagnosis Encounter for long-term (current) use of medications Encounter for long-term (current) use of other medications documented in this encounter Care Teams Fur Drummer Relationship Specialty Start Date End Date Enrico Mccauley MD [address] [place] [address] PCP - General Family Medicine 08/19/19 documented as of this encounter
--- OUTSIDE RECORDS SUMMARY | 2023-12-29 21:36 | External Medical Summary | Summary of Care ---
Author Name Unknown Organization [facility] Address [address] [facility] [address] Phone [phone] Care Team Providers Care White Shoe Ragger Name Role Phone Enrico Mccauley MD Primary Care Provider [phone] Reason for Visit * Reason Onset Date Comments Medication Refill 11/07/2023 Encounter Details Date Type Department Care Team (Late st Contact Info) Description 11/07/2023 Refill Pulmonary Medicine [facility] Ulrich [address] [place] [phone] Donte Plaza MD [address] [place] [address] Severe persistent asthma dependent on systemic steroids Allergies Active Allergy Reactions Criticality Noted Date Comments Gianluca Inhibitors Cough 06/12/2016 Cat Dander 03/31/2020 Ragweed 02/16/2020 Per patient's he is allergic to all weeds, trees, grasses documented as of this encounter (statuses as of 11/07/2023) Medications Medication Sig Dispensed Refills Start Date End Date Status ASPIRIN 81 MG PO TABS one tablet daily 0 Active Blood Glucose Monitoring Suppl (Values of n ULTRA SYSTEM) W/DEVICE KITIndications:Type 2 diabetes mellitus with hemoglobin A1c goal of less than 7.5% ([facility]) Use as directed 2 times a day. E11.9 1 Kit 0 07/27/2016 Active Azelastine HCl 0.1 % nasal spray Administer 1 [place] into nostril 2 times a day. 30 [...] A1c goal of less than 8.0% ([facility]) Use up to four times daily [...] 06/24/2023 Active Mometasone Furoate 50 MCG/ACT Nasal SuspensionIndicatio ns:Chronic rhinitis administer 2 sprays into each nostril daily 51 g 0 07/04/2023 Active OneTouch [place] Lancets 33GIndications:Type 2 diabetes mellitus with hemoglobin A1c goal of less than 7.5% ([facility]) USE DIRECTED TWICE DAILY. USE UP TO FOUR TIMES A DAY DIRECTED. 100 Each 10 07/11/2023 Active Levalbuterol HCl 1.25 MG/3ML Inhalation Nebulization Solution (Xopenex) 0 07/28/2023 Active Ipratropium [place] 0.02 % Inhalation Solution (Atrovent) 2.5 mL. [...] 10/14/2023 Active predniSONE 10 MG Oral Tablet (Deltasone)Indicati ons:Severe persistent asthma with acute exacerbation,Shortn ess of breath,Bronchiectas is with acute exacerbation (HCC) Take 5 tabs [...] MORNING 90 Tablet 0 11/01/2023 Active Ipratropium [place] 0.02 % Inhalation Solution (Atrovent) Inhale 2.5 mL via nebulizer in the morning and 2.5 mL at noon and 2.5 mL in the evening and 2.5 mL before bedtime. 75 mL 12 11/01/2023 Active Tiotropium [place] Monohydrate 18 MCG Inhalation Capsule (Spiriva)Indication s:Severe persistent asthma dependent on systemic steroids INHALE 1 CAPSULE BY MOUTH ONCE DAILY VIA HANDIHALER . DO NOT SWALLOW 30 Capsule 5 11/07/2023 Active Tiotropium [place] Monohydrate 18 MCG Inhalation Capsule (Spiriva)Indication s:Severe persistent asthma dependent on systemic steroids INHALE 1 CAPSULE BY MOUTH ONCE DAILY VIA HANDIHALER . DO NOT SWALLOW 30 Capsule 0 10/01/2023 11/07/19 24 Discontinu ed(Refill) Hospital, Clinic, or Other Facility Administered Medication Ordered Dose Route Frequency Start Date End Date Status omalizumab (XOLAIR) inj 150 mgIndications:Poorly controlled severe persistent asthma with acute exacerbation 150 mg SC [id number] 05/13/2020 Active omalizumab (XOLAIR) inj 150 mgIndications:Poorly controlled severe persistent asthma with acute exacerbation 150 mg SC [id number] 05/13/2020 Active documented as of this encounter (statuses as of 11/07/2023) Active Problems Problem Noted Date Diagnosed Date [...] as of this encounter (statuses as of 11/07/2023) Resolved Problems Problem Noted Date Diagnosed Date [...] as of this encounter (statuses as of 11/07/2023) Immunizations Name Administration Dates Next Due COVID-19 [...] Influenza, Split, I IV3, With Preserve, Inj 05/28/2014,05/16/2013,05/17/2012,11/0 01/2011,05/12/2010,06/15/2009,04/29/20 06 TDAP (age 10 and older)(Boostrix) 02/06/2019 [...] encounter Miscellaneous Notes * Telephone Encounter - Donte Plaza MD - 11/07/2023 12:49 PM EDTSigned Prescriptions: Disp Refills Tiotropium [place] Monohydrate 18 MCG Inha*30 Cap*5 Sig: INHALE 1 CAPSULE BY MOUTH ONCE DAILY VIA HANDIHALER . DO NOT SWALLOW Authorizing Provider: DONTE PLAZA * Telephone Encounter - Siomara Cherry LPN - 11/07/2023 10:05 AM EDTPending Prescriptions: Disp Refills Tiotropium [place] Monohydrate 18 MCG Inha*30 Cap*5 Sig: INHALE 1 CAPSULE BY MOUTH ONCE DAILY VIA HANDIHALER . DO NOT SWALLOW * Telephone Encounter - Siomara Cherry LPN - 11/07/2023 10:04 AM EDT Did you pend patient's preferred pharmacy and medication before forwarding?yes [id number] [address] Pending Prescriptions: Disp Refills Tiotropium [place] Monohydrate 18 MCG Inh*30 Cap*5 Sig: INHALE 1 CAPSULE BY MOUTH ONCE DAILY VIA HANDIHALER . DO NOT SWALLOW Last Visit: Visit date not found (in office), Visit date not found (telemedicine) Next Visit: Visit date not found If no future appointments scheduled, and last appointment is greater than a year ago, please schedule patient for a follow-up appointment Last date the medication was ordered: 10/01/23 Is this request for a controlled substance?No [...] 10:20 AM EDT Office Visit Family Practice [facility] [address] [place] [address] Enrico Mccauley MD [address] [employer] [place] [address] 02/07/2024 10:35 AM EDT Cardiac Studies Cardiac Studies, [facility] [address] [place] [address] Scheduled Procedures Name Priority Associated Diagnoses Date/Ti [...] 03/23/2019, Additional history exists HbA1c 05/07/2024 11/06/2023, 10/01/2023, 11/21/2022, Additional history exists TSH 05/24/2024 05/24/2023, [...] Diagnosis Severe persistent asthma 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
--- OUTSIDE RECORDS SUMMARY | 2023-12-29 21:36 | External Medical Summary | Summary of Care ---
Author Name Unknown Organization [facility] Address [address] [facility] [address] Phone [phone] Care Team Providers Care Preschool Special Education Teacher Name Role Phone Shana Hamlin MD Primary Care Provider [phone] Reason for Visit * Reason Comments eRx-Medication Refill Encounter Details Date Type Department Care Team (Late st Contact Info) Description 10/31/2023 Refill Family Practice [facility] [address] [facility] [place] [address] Shana Hamlin MD [address] [facility] [place] [address] Allergies Active Allergy Reactions Criticality Noted Date Comments Gianluca Inhibitors Cough 06/12/2016 Cat Dander 03/31/2020 Ragweed 02/16/2020 Per patient's he is allergic to all weeds, trees, grasses documented as of this encounter (statuses as of 11/06/2023) Medications Medication Sig Dispensed Refills Start Date End Date Status ASPIRIN 81 MG PO TABS one tablet daily 0 Active Blood Glucose Monitoring Suppl (CryoTherapeuticsUCH ULTRA SYSTEM) W/DEVICE KITIndications:Type 2 diabetes mellitus with hemoglobin A1c goal of less than 7.5% ([facility]) Use as directed 2 times a day. E11.9 1 Kit 0 6 Active Azelastine HCl 0.1 % nasal spray Administer 1 [place] into nostril 2 times a day. 30 [...] hemoglobin A1c goal of less than 8.0% ([facility]) Use up to four times daily to check blood glucose 200 Strip 3 3 Active Ipratropium-Albuter ol 0.5-2.5 (3) MG/3ML Inhalation Solution (Duoneb)Indications :Moderate persistent asthma with acute exacerbation INHALE THE CONTENTS OF ONE VIAL (3 ML) VIA NEBULIZER FOUR TIMES A DAY NEEDED. 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 USE UP TO FOUR TIMES A DAY DIRECTED. 100 Each 10 3 Active Levalbuterol HCl 1.25 MG/3ML Inhalation Nebulization Solution (Xopenex) 0 3 Active Ipratropium [place] 0.02 % Inhalation Solution (Atrovent) 2.5 mL. 0 3 Active Breo Ellipta 200-25 MCG/ACT [...] the morning. 30 Tablet 5 4 Active Tiotropium [place] Monohydrate 18 MCG Inhalation Capsule (Spiriva)Indication s:Severe persistent asthma dependent on systemic steroids INHALE 1 CAPSULE BY MOUTH ONCE DAILY VIA HANDIHALER . DO NOT SWALLOW 30 Capsule 0 4 Active Omeprazole 20 MG Oral Capsule Delayed Release (PriLOSEC) TAKE 1 CAPSULE BY MOUTH TWICE DAILY 30 MINUTES BEFORE A MEAL 180 Capsule 1 4 Active Sodium Chloride 3 % Inhalation Nebulization Solution Inhale 4ml via nebulizer in the morning and 4ml before bedtime 240 mL 1 4 Active predniSONE 10 MG Oral Tablet (Deltasone)Indicati ons:Severe persistent asthma with acute exacerbation,Shortn ess of breath,Bronchiectas is with acute exacerbation (HCC) Take 5 tabs for 2 days, 4 tabs for 2 days, 3 tabs for 2 days, 2 tabs for 2 days 1 tab for 2 days 30 Tablet 0 4 Active Albuterol Sulfate HFA 108 (90 Base) MCG/ACT Inhalation Aerosol SolutionIndications :Complicated acute bronchitis Inhale 2 Puffs by mouth every 4 hours as needed for Wheezing. 18 g 1 4 Active predniSONE 5 MG Oral Tablet (Deltasone) TAKE ONE TABLET BY MOUTH IN THE MORNING 90 Tablet 0 4 Active predniSONE 5 MG Oral Tablet (Deltasone) TAKE ONE TABLET BY MOUTH IN THE MORNING 90 Tablet 0 4 11/01/19 24 Discontinued Cefdinir 300 MG Oral Capsule (Omnicef)Indication s:Severe persistent asthma with acute exacerbation,Shortn ess of breath,Bronchiectas is with acute exacerbation (HCC) Take 1 Capsule by mouth in the morning and 1 Capsule before bedtime. Do all this for 10 days. For 10 days.. 20 Capsule 0 4 11/01/19 24 Hospital, Clinic, or Other Facility Administered Medication Ordered Dose Route Frequency Start Date End Date Status omalizumab (XOLAIR) inj 150 mgIndications:Poorly controlled severe persistent asthma with acute exacerbation 150 mg SC [id number] 05/13/2020 Active omalizumab (XOLAIR) inj 150 mgIndications:Poorly controlled severe persistent asthma with acute exacerbation 150 mg SC [id number] 05/13/2020 Active documented as of this encounter [...] Telephone Encounter - Shana Hamlin MD - 11/01/2023 10:12 AM EDTSigned Prescriptions: Disp Refills predniSONE 5 MG Oral Tablet (Deltasone) 90 Tab*0 Sig: TAKE ONE TABLET BY MOUTH IN THE MORNING Authorizing Provider: SHANA HAMLIN * Telephone Encounter - Maisha Jason LPN - 11/01/2023 8:11 AM EDTPending Prescriptions: Disp Refills predniSONE 5 MG Oral Tablet [Pharmacy Med *90 Tab*0 Sig: TAKE ONE TABLET BY MOUTH IN THE MORNING * Telephone Encounter - Zhang Tucker - 11/01/2023 6:07 AM EDTPending Prescriptions: Disp Refills predniSONE 5 MG Oral Tablet [Pharmacy Med *90 Tab*0 Sig: TAKE ONE TABLET BY MOUTH IN THE MORNING documented in this encounter Plan of Treatment Upcoming Encounters Date Type Department Care Team (Late st Contact Info) Description 11/25/2023 10:20 AM EDT Office Visit Family Practice [facility] [address] [place] [address] Shana Hamlin MD [address] [employer] [place] [address] 02/07/2024 10:35 AM EDT Cardiac Studies Cardiac Studies, [facility] [address] [place] [address] Scheduled Procedures Name Priority Associated Diagnoses Date/Ti [...] filedocumented as of this encounter Care Teams Preschool Special Education Teacher Relationship Specialty Start Date End Date Shana Hamlin MD [address] [facility] [place] [address] PCP - General Family Medicine 08/19/19 documented as of this encounter
--- OUTSIDE RECORDS SUMMARY | 2023-12-29 21:36 | External Medical Summary | Summary of Care ---
Author Name Unknown Organization [facility] Address [address] [facility] [place] [address] Phone [phone] Care Team Providers Care Principal Administrative Clerk Name Role Phone Enrico Mccauley MD Primary Care Provider [phone] Reason for Visit * Reason Onset Date Comments Abnormal Lab Results 11/08/2023 Encounter Details Date Type Department Care Team (Late st Contact Info) Description 11/08/2023 Telephone Family Practice [facility] [address] [place] [address] Enrico Mccauley MD [address] [place] [address] Abnormal Lab Results Allergies Active Allergy Reactions Criticality Noted Date Comments Gianluca Inhibitors Cough 06/12/2016 Cat Dander 03/31/2020 Ragweed 02/16/2020 Per patient's he is allergic to all weeds, trees, grasses documented as of this encounter (statuses as of 11/26/2023) Medications Medication Sig Dispensed Refills Start Date End Date Status ASPIRIN 81 MG PO TABS one tablet daily 0 Active Blood Glucose Monitoring Suppl (HungerTime ULTRA SYSTEM) W/DEVICE KITIndications:Typ e 2 diabetes mellitus with hemoglobin A1c goal of less than 7.5% ([facility]) Use as directed 2 times a day. E11.9 1 Kit 0 6 Active Azelastine HCl 0.1 % nasal spray Administer 1 [place] into nostril 2 times a day. 30 [...] than 8.0% ([facility]) Use up to four times daily to [...] than 7.5% ([facility]) USE DIRECTED TWICE DAILY. USE UP TO [...] MORNING 90 Tablet 0 4 Active Ipratropium [place] 0.02 % Inhalation Solution (Atrovent) Inhale 2.5 mL via nebulizer in the morning and 2.5 mL at noon and 2.5 mL in the evening and 2.5 mL before bedtime. 75 mL 12 4 Active Tiotropium [place] Monohydrate 18 MCG Inhalation Capsule (Spiriva)Indicatio ns:Severe [...] 2 3 11/25/19 24 Discontinued(Di scharged) Ipratropium [place] 0.02 % Inhalation Solution (Atrovent) 2.5 mL. [...] asthma with acute exacerbation 150 mg SC [id number] 05/13/2020 Active omalizumab (XOLAIR) inj 150 mgIndications:Poorly controlled severe persistent asthma with acute exacerbation 150 mg SC [id number] 05/13/2020 Active documented as of this encounter [...] Notes * Telephone Encounter - Maren Flowers [facility] - 11/21/2023 11:42 AM EDT Spoke with [...] the preferred option. Thank You, Maren Flowers [facility] Clinical Pharmacist [facility] ([facility]) (formerly Telepharmacy) [phone] 11/21/2023, 11:45 AM * Telephone Encounter - Maren Flowers [facility] - 11/08/2023 11:59 AM EDT ezzai - how to [place] message sent to patient with the following [...] lower the A1c? Thank You, Maren Flowers [facility] Clinical Pharmacist [facility] ([facility]) (formerly Telepharmacy) [phone] 11/08/2023, 11:59 AM documented in this encounter Plan of Treatment Upcoming Encounters Date Type Department Care Team (Late st Contact Info) Description 02/07/2024 10:35 AM EDT Cardiac Studies Cardiac Studies, [facility] [address] [facility] [place] [address] Scheduled Procedures Name Priority [...] filedocumented as of this encounter Care Teams Principal Administrative Clerk Relationship Specialty Start Date End Date Enrico Mccauley MD [address] [facility] [place] [address] PCP - General Family Medicine 08/19/19 documented as of this encounter
--- OUTSIDE RECORDS SUMMARY | 2023-12-29 21:36 | External Medical Summary | Summary of Care ---
Author Name Unknown Organization [facility] Address [address] [facility] [address] Phone [phone] Care Team Providers Care Leather Parts Matcher Name Role Phone Shana Hamlin MD Primary Care Provider [phone] Reason for Visit * Reason Comments eRx-Medication Refill Encounter Details Date Type Department Care Team (Late st Contact Info) Description 10/31/2023 Refill Family Practice [facility] [address] [facility] [place] [address] Shana Hamlin MD [address] [facility] [place] [address] Allergies Active Allergy Reactions Criticality Noted Date Comments Gianluca Inhibitors Cough 06/12/2016 Cat Dander 03/31/2020 Ragweed 02/16/2020 Per patient's he is allergic to all weeds, trees, grasses documented as of this encounter (statuses as of 11/08/2023) Medications Medication Sig Dispensed Refills Start Date End Date Status ASPIRIN 81 MG PO TABS one tablet daily 0 Active Blood Glucose Monitoring Suppl (blinkbox musicUCH ULTRA SYSTEM) W/DEVICE KITIndications:Typ e 2 diabetes mellitus with hemoglobin A1c goal of less than 7.5% ([facility]) Use as directed 2 times a day. E11.9 1 Kit 0 6 Active Azelastine HCl 0.1 % nasal spray Administer 1 [place] into nostril 2 times a day. 30 [...] goal of less than 8.0% ([facility]) Use up to four times daily [...] g 0 3 Active OneTouch Delica Lancets 33GIndications:Typ e 2 diabetes mellitus with hemoglobin A1c goal of less than 7.5% ([facility]) USE DIRECTED TWICE DAILY. USE UP TO FOUR TIMES A DAY DIRECTED. 100 Each 10 3 Active Levalbuterol HCl 1.25 MG/3ML Inhalation Nebulization Solution (Xopenex) 0 3 Active Ipratropium [place] 0.02 % Inhalation Solution (Atrovent) 2.5 mL. [...] 4 Active predniSONE 10 MG Oral Tablet (Deltasone)Indicat ions:Severe [...] IN THE MORNING 90 Tablet 0 4 024 Discontinued Tiotropium [place] Monohydrate 18 MCG Inhalation Capsule (Spiriva)Indicatio ns:Severe persistent asthma dependent on systemic steroids INHALE 1 CAPSULE BY MOUTH ONCE DAILY VIA HANDIHALER . DO NOT SWALLOW 30 Capsule 0 4 024 Discontinued(Re fill) Cefdinir 300 MG Oral Capsule (Omnicef)Indicatio ns:Severe persistent asthma with acute exacerbation,Short ness of breath,Bronchiecta sis with acute exacerbation (HCC) Take 1 Capsule by mouth in the morning and 1 Capsule before bedtime. Do all this for 10 days. For 10 days.. 20 Capsule 0 4 024 Hospital, Clinic, or Other Facility Administered Medication Ordered Dose Route Frequency Start Date End Date Status omalizumab (XOLAIR) inj 150 mgIndications:Poorly controlled severe persistent asthma with acute exacerbation 150 mg SC [id number] 05/13/2020 Active omalizumab (XOLAIR) inj 150 mgIndications:Poorly controlled severe persistent asthma with acute exacerbation 150 mg SC [id number] 05/13/2020 Active documented as of this encounter (statuses as of 11/08/2023) Active Problems Problem Noted Date Diagnosed Date [...] as of this encounter (statuses as of 11/08/2023) Resolved Problems Problem Noted Date Diagnosed Date [...] as of this encounter (statuses as of 11/08/2023) Immunizations Name Administration Dates Next Due COVID-19 [...] Provider: SHANA HAMLIN * Telephone Encounter - Maisah Jason LPN - 11/01/2023 8:11 AM EDTPending [...] 10:20 AM EDT Office Visit Family Practice [facility] [address] [place] [address] Shana Hamlin MD [address] [place] [address] 02/07/2024 10:35 AM EDT Cardiac Studies Cardiac Studies, [facility] [address] [facility] [place] [address] Scheduled Procedures Name Priority Associated Diagnoses Date/Ti [...] as of this encounter Care Teams Leather Parts Matcher Relationship Specialty Start Date End Date Shana Hamlin MD [address] [place] [address] PCP - General Family Medicine 08/19/19 documented as of this encounter
--- OUTSIDE RECORDS SUMMARY | 2023-12-29 21:36 | External Medical Summary | Summary of Care ---
Author Name Unknown Organization [facility] Address [address] [facility] [place] [address] Phone [phone] Care Team Providers Care Wire Taper Name Role Phone Enrico Mccauley MD Primary Care Provider [phone] [phone] Reason for Visit * Reason Comments Follow Up Pt here for 6 month follow up, states he has SOB at night Encounter Details Date Type Department Care Team (Late st Contact Info) Description 11/25/2023 10:20 AM EDT Office Visit [facility] [address] [place] [address] Enrico Mccauley MD [address] [place] [id number] Type 2 diabetes mellitus with hemoglobin A1c goal of less than 8.0% ([facility])*; Severe persistent asthma dependent on systemic steroids; Restrictive lung disease; PHLILIP (obstructive sleep apnea); Mild aortic stenosis; Chronic heart failure with preserved ejection fraction (HCC); BPH with obstruction/lower urinary tract symptoms; Periodic limb movement disorder (PLMD) Allergies Active Allergy Reactions Criticality Noted Date Comments Gianluca Inhibitors Cough 06/12/2016 Cat Dander 03/31/2020 Ragweed 02/16/2020 Per patient's he is allergic to all weeds, trees, grasses documented as of this encounter (statuses as of 11/25/2023) Medications Medication Sig Dispensed Refills Start Date End Date Status ASPIRIN 81 MG PO TABS one tablet daily 0 Active Blood Glucose Monitoring Suppl (ZeroMail SYSTEM) W/DEVICE KITIndications:Typ e 2 diabetes mellitus with hemoglobin A1c goal of less than 7.5% ([facility]) Use as directed 2 times a day. E11.9 1 Kit 0 6 Active Azelastine HCl 0.1 % nasal spray Administer 1 [place] into nostril 2 times a day. 30 [...] A1c goal of less than 8.0% ([facility]) Use up to four times [...] A1c goal of less than 7.5% ([facility]) USE DIRECTED TWICE DAILY. USE [...] MORNING 90 Tablet 0 4 Active Ipratropium Welcome 0.02 % Inhalation Solution (Atrovent) Inhale 2.5 mL via nebulizer in the morning and 2.5 mL at noon and 2.5 mL in the evening and 2.5 mL before bedtime. 75 mL 12 4 Active Tiotropium [place] Monohydrate 18 MCG Inhalation Capsule (Spiriva)Indicatio ns:Severe persistent asthma dependent on systemic steroids INHALE 1 CAPSULE BY MOUTH ONCE DAILY VIA HANDIHALER . DO NOT SWALLOW 30 Capsule 5 4 Active Empagliflozin 25 MG Oral Tablet (Jardiance)Indicat ions:Type 2 diabetes mellitus with hemoglobin A1c goal of less than 8.0% ([facility]) Take 1 Tablet by mouth in the morning. 90 Tablet 3 4 Active predniSONE 20 MG Oral Tablet (Deltasone) Take 2 Tablets by mouth daily for 5 days, THEN 1 Tablet daily for 5 days. 15 Tablet 3 4 12/05/19 24 Active Arnuity Ellipta 100 MCG/ACT Inhalation Aerosol Powder Breath Activated (fluticasone Furoate)Indication s:Eosinophilic asthma inhale 1 puff by mouth once daily - rinse mouth after use 90 Each 2 3 11/25/19 24 Discontinued(Di scharged) Ipratropium Welcome 0.02 % Inhalation Solution (Atrovent) 2.5 mL. [...] asthma with acute exacerbation 150 mg SC [id number] 05/13/2020 Active omalizumab (XOLAIR) inj 150 mgIndications:Poorly controlled severe persistent asthma with acute exacerbation 150 mg SC [id number] 05/13/2020 Active documented as of this encounter (statuses as of 11/25/2023) Active Problems Problem Noted Date Diagnosed Date [...] as of this encounter (statuses as of 11/25/2023) Resolved Problems Problem Noted Date Diagnosed Date [...] as of this encounter (statuses as of 11/25/2023) Immunizations Name Administration Dates Next Due COVID-19 [...] Sign Reading Time Taken Comments Blood Pressure 138/80 11/25/2023 10:23 AM EDT Pulse 93 11/25/2023 10:23 AM EDT Temperature 36.2 C (97.2 F) 11/25/2023 10:23 AM E DT Respiratory Rate 18 11/25/2023 10:23 AM EDT Oxygen Saturation 91% 11/25/2023 10:23 AM EDT Inhaled Oxygen Concentration - - Weight 74.4 kg (164 lb) 11/25/2023 10:23 AM EDT Height 157.5 cm (5' 2") 11/25/2023 10:23 AM EDT Body Mass Index 30 11/25/2023 10:23 AM EDT documented in this encounter Progress Notes * Enrico Mccauley MD - 11/25/2023 12:27 PM EDT SUBJECTIVE: Alcides Sebastian is a 78 year old male. Chief Complaint Patient presents with Follow Up Pt here for 6 month follow up, states he has SOB at night HPI: Alcides is a medically complex but overall stable 78 year old male with severe steroid dependent asthma as well as restrictive lung disease here with his for a routine visit. His shortness of breath remains at its baseline. No recent hospitalizations for any exacerbations. His blood work is up todate. He has no complaints apart from his breathing issues. 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 30 [...] doses in 15 minutes 25 Tab 11 SUMAtriptan Succinate 25 MG Oral Tablet (Imitrex) take 2 tablets by mouth at onset of migraine, and1 tablet every 2 hours if needed; not more than 5 tablets in 24 hours 6 Tablet 11 Vitamin B-12 1000 MCG Oral Tablet TAKE 1 TABLET BY MOUTH ONCE DAILY 100 Tablet 2 Ipratropium-Albuterol 0.5-2.5 (3) MG/3ML Inhalation Solution (Duoneb) INHALE THE CONTENTS OF ONE VIAL (3 ML) VIA NEBULIZER FOUR TIMES A DAY NEEDED. 360 mL 5 Benzonatate 200 MG Oral Capsule Montelukast Sodium 10 MG Oral Tablet (Singulair) Take 1 Tablet by mouth in the morning. 90 Tablet 2 glipiZIDE 5 MG Oral Tablet (Glucotrol) TAKE 1 TABLET BY MOUTH TWICE DAILY 30 minutes before a meal 180 Tablet 1 Mometasone Furoate 50 MCG/ACT Nasal Suspension administer 2 sprays into each nostril daily 51 g 0 Levalbuterol HCl 1.25 MG/3ML Inhalation Nebulization Solution (Xopenex) Breo Ellipta 200-25 MCG/ACT Inhalation Aerosol Powder Breath Activated (fluticasone furoate-vilanterol) INHALE 1 PUFF BY MOUTH EVERY MORNING 180 Blister Dosing Unit 3 amLODIPine Besylate 5 MG Oral Tablet (Norvasc) TAKE 1 TABLET BY MOUTH EVERY MORNING 90 Tablet 3 Levothyroxine Sodium 100 MCG Oral Tablet (Levoxyl) TAKE 1 TABLET BY MOUTH EVERY MORNING (at least 30 minutes prior to breakfast or other meds) 90 Tablet 3 Doxazosin Mesylate 2 MG Oral Tablet (Cardura) TAKE ONE TABLET BY MOUTH ONE TIME DAILY IN THE EVENING 90 Tablet 3 Xolair 150 MG/ML Subcutaneous Solution Prefilled Syringe (Omalizumab) INJECT 2 SYRINGES UNDER THE SKIN EVERY 4 WEEKS 2 mL 6 Losartan Potassium 25 MG Oral Tablet (Cozaar) Take 1 Tablet by mouth in the morning. 90 Tablet 3 Atorvastatin Calcium 20 MG Oral Tablet (Lipitor) Take 1 Tablet by mouth in the morning. 90 Tablet 3 Metoprolol Succinate ER 25 MG Oral Tablet Extended Release 24 Hour (toPROL XL) Take 0.5 Tablets by mouth in the morning. 30 Tablet 5 Omeprazole 20 MG Oral Capsule Delayed Release (PriLOSEC) TAKE 1 CAPSULE BY MOUTH TWICE DAILY 30 MINUTES BEFORE A MEAL 180 Capsule 1 Sodium Chloride 3 % Inhalation Nebulization Solution Inhale 4ml via nebulizer in the morning and 4ml before bedtime 240 mL 1 Albuterol Sulfate HFA 108 (90 Base) MCG/ACT Inhalation Aerosol Solution Inhale 2 Puffs by mouth every 4 hours as needed for Wheezing. 18 g 1 predniSONE 5 MG Oral Tablet (Deltasone) TAKE ONE TABLET BY MOUTH IN THE MORNING 90 Tablet 0 Ipratropium Welcome 0.02 % Inhalation Solution (Atrovent) Inhale 2.5 mL via nebulizer in the morning and 2.5 mL at noon and 2.5 mL in the evening and 2.5 mL before bedtime. 75 mL 12 Tiotropium Welcome Monohydrate 18 MCG Inhalation Capsule (Spiriva) INHALE 1 CAPSULE BY MOUTH ONCE DAILY VIA HANDIHALER . DO NOT SWALLOW 30 Capsule 5 Empagliflozin 25 MG Oral Tablet (Jardiance) Take 1 Tablet by mouth in the morning. 90 Tablet 3 predniSONE 20 MG Oral Tablet (Deltasone) Take 2 Tablets by mouth daily for 5 days, THEN 1 Tablet daily for 5 days. 15 Tablet 3 Blood Glucose Monitoring Suppl (DrDoctor ULTRA SYSTEM) W/DEVICE KIT Use as directed 2 times a day. E11.9 1 Kit 0 [facility] Glucose Meter Test Strips In Vitro Strip (Glucose Blood) Use up to four times daily to check blood glucose 200 Strip 3 [employer] Delica Lancets 33G USE DIRECTED TWICE DAILY. USE UP TO FOUR TIMES A DAY DIRECTED. 100 Each 10 Current Facility-Administered Medications Medication Dose Route Frequency Provider Last Rate Last Admin omalizumab (XOLAIR) inj 150 mg 150 mg Subcutaneous Q4 Weeks Asmita Munoz CRNP 150 mg at 11/15/23 0930 omalizumab (XOLAIR) inj 150 mg 150 mg Subcutaneous Q4 Weeks Asmita Munoz CRNP 150 mg at 11/15/23 0917 Allergy: Review of patient's allergies indicates: Allergen Reactions Gianluca Inhibitors Cough Cats [Cat Dander] Environmental [Ragweed] Per patient's he is allergic to all weeds, trees, grasses OBJECTIVE: BP 138/80 | Pulse 93 | Temp 36.2 C (97.2 F) (Tympanic) | Resp 18 | Ht 1.575 m (5' 2") | Wt 74.4kg (164 lb) | SpO2 91% | BMI 30.00 kg/m | BSA 1.8 m General: alert, healthy, and no distress Head: Normocephalic, No masses, lesions, tenderness or abnormalities Neck: supple, no adenopathy, no bruits, thyroid normal size, non-tender, without nodularity Lungs: chest symmetric with normal AP diameter, no chest deformities noted, no chest wall tenderness, lungs clear to auscultation Heart: regular rate & rhythm, soft Extremities: less than 2 second capillary refill, no joint deformities, effusion, or inflammation Neuro Exam: alert & oriented x 3 with fluent speech, no focal motor/sensory deficits, gait normal, reflexes normal and symmetric Skin: skin color, texture, turgor are normal, no rashes or significant lesions ASSESSMENT AND PLAN: (E11.9) Type 2 diabetes mellitus with hemoglobin A1c goal of less than 8.0% (HCC) (primary encounter diagnosis) Plan: Empagliflozin 25 MG Oral Tablet (Jardiance), HEMOGLOBIN A1C -A1c jumped to over 10% likely due to frequent steroid use -continue glipizide and start Jardiance (J45.50, Z79.52) Severe persistent asthma dependent on systemic steroids Plan: continue current mgmt (J98.4) Restrictive lung disease Plan: see above (G47.33) PHILLIP (obstructive sleep apnea) Plan: see above (I35.0) Mild aortic stenosis Plan: serial echo (I50.32) Chronic heart failure with preserved ejection fraction (HCC) Plan: serial echo (N40.1, N13.8) BPH with obstruction/lower urinary tract symptoms Plan: stable (G47.61) Periodic limb movement disorder (PLMD) Plan: stable Follow up in 6 month(s). No other complaints were offered at this time. Enrico Mccauley MD documented in this encounter Nursing Notes * Avani Adams LPN - 11/25/2023 10:22 AM EDT The patient has been properly identified by confirmation of name and date of . Chief Complaint Patient presents with Follow Up Pt here for 6 month follow up, states he has SOB at night documented in this encounter Plan of Treatment Upcoming Encounters Date Type Department Care Team (Late st Contact Info) Description 02/07/2024 10:35 AM EDT Cardiac Studies Cardiac Studies, [facility] [address] [facility] [place] [id number] Scheduled Orders Name Type Priority Associated Diagnoses Orde r Schedule HEMOGLOBIN A1C Lab Routine Type 2 diabetes mellitus with hemoglobin A1c goal of less than 8.0% (HCC) Expected: 11/25/2023 (Approximate), Expires: 11/24/2024 Scheduled Procedures Name Priority Associated Diagnoses Date/Ti [...] 07/2021, 03/20/2021, Additional history exists Albumin/Creatinine Ratio 10/20/20242 024, 07/13/2022, 01/21/2018, Additional history exists GFR 10/20/2024 10/21/2023, 11/07/2021, 03/20/2021, Additional history exists DTaP,Tdap,and Td Vaccines [...] hemoglobin A1c goal of less than 8.0% (HCC)- Primary Severe persistent asthma dependent on systemic steroids Restrictive lung disease Other diseases of lung, not elsewhere classified PHILLIP (obstructive sleep apnea) Obstructive sleep apnea (adult) (pediatric) Mild aortic stenosis Aortic valve disorders Chronic heart failure with preserved ejection fraction (HCC) BPH with obstruction/lower urinary tract symptoms Hypertrophy of prostate with urinary obstruction and other lower urinary tract symptoms (LUTS) Periodic limb movement disorder (PLMD) Periodic limb movement disorder documented in this encounter Care Teams Wire Taper Relationship Specialty Start Date End Date Enrico Mccauley MD [address] [place] [address] PCP - General Family Medicine 08/19/19 documented as of this encounter
--- OUTSIDE RECORDS SUMMARY | 2023-12-29 21:36 | External Medical Summary ---
Author Name Unknown Address Unknown Organization [id number]:LABORATORY [facility] - [address] [facility] [address] Laboratory Report Ordering Provider Test Date Status GUZMAN EARL 11/06/2023 08:45:00 Final Observation Date Value Abnormality Reference (Units ) Status HbA1C 11/06/2023 08:45:00 10.4 Above high normal 4. 0-5.6 (%) Final The use of HbA1c to monitor glycemic status is based on normal hemoglobin and HbA composition. This test should not be used in patients with abnormal hemoglobin that affects the half life of the red blood cell or the in vivo glycation rates. Glucose, estimated average 11/06/2023 08:45:00 252 Above high normal <126 (mg/dL) Zhen ambriz Performing Location LAB[facility]ATORY [facility] - [address] [facility] [address]
--- OUTSIDE RECORDS SUMMARY | 2023-12-29 21:36 | External Medical Summary | Summary of Care ---
Author Name Unknown Organization [facility] Address [address] [facility] [address] Phone [phone] Care Team Providers Care Prescription Benefit Specialist Name Role Phone Enrico Mccauley MD Primary Care Provider [phone] Encounter Details Date Type Department Care Team (Late st Contact Info) Description 11/27/2023 Orders Only PATIENT PORTAL DO NOT DELETE THIS DEPT USED BY [place] [id number] Allergies Active Allergy Reactions Criticality Noted Date Comments Gianluca Inhibitors Cough 06/12/2016 Cat Dander 03/31/2020 Ragweed 02/16/2020 Per patient's he is allergic to all weeds, trees, grasses documented as of this encounter (statuses as of 11/27/2023) Medications Medication Sig Dispensed Refills Start Date End Date Status ASPIRIN 81 MG PO TABS one tablet daily 0 Active Blood Glucose Monitoring Suppl (InnohatUCH ULTRA SYSTEM) W/DEVICE KITIndications:Type 2 diabetes mellitus with hemoglobin A1c goal of less than 7.5% ([facility]) Use as directed 2 times a day. E11.9 1 Kit 0 07/27/2016 Active Azelastine HCl 0.1 % nasal spray Administer 1 [place] into nostril 2 times a day. 30 [...] hemoglobin A1c goal of less than 8.0% ([facility]) Use up to four times daily to [...] hemoglobin A1c goal of less than 7.5% ([facility]) USE DIRECTED TWICE DAILY. USE UP TO [...] before bedtime 240 mL 1 10/14/2023 Active Albuterol Sulfate HFA 108 (90 Base) MCG/ACT Inhalation Aerosol SolutionIndications: Complicated acute bronchitis Inhale 2 Puffs by mouth every 4 hours as needed for Wheezing. 18 g 1 10/27/2023 Active predniSONE 5 MG Oral Tablet (Deltasone) TAKE ONE TABLET BY MOUTH IN THE MORNING 90 Tablet 0 11/01/2023 Active Ipratropium [place] 0.02 % Inhalation Solution (Atrovent) Inhale 2.5 mL via nebulizer in the morning and 2.5 mL at noon and 2.5 mL in the evening and 2.5 mL before bedtime. 75 mL 12 11/01/2023 Active Tiotropium [place] Monohydrate 18 MCG Inhalation Capsule (Spiriva)Indications :Severe persistent asthma dependent on systemic steroids INHALE 1 CAPSULE BY MOUTH ONCE DAILY VIA HANDIHALER . DO NOT SWALLOW 30 Capsule 5 11/07/2023 Active Empagliflozin 25 MG Oral Tablet (Jardiance)Indicatio ns:Type 2 diabetes mellitus with hemoglobin A1c goal of less than 8.0% ([facility]) Take 1 Tablet by mouth in the morning. 90 Tablet 3 11/25/2023 Active predniSONE 20 MG Oral Tablet (Deltasone) Take 2 Tablets by mouth daily for 5 days, THEN 1 Tablet daily for 5 days. 15 Tablet 3 11/25/2023 4 Active Hospital, Clinic, or Other Facility Administered Medication Ordered Dose Route Frequency Start Date End Date Status omalizumab (XOLAIR) inj 150 mgIndications:Poorly controlled severe persistent asthma with acute exacerbation 150 mg SC [id number] 05/13/2020 Active omalizumab (XOLAIR) inj 150 mgIndications:Poorly controlled severe persistent asthma with acute exacerbation 150 mg SC [id number] 05/13/2020 Active documented as of this encounter (statuses as of 11/27/2023) Active Problems Problem Noted Date Diagnosed Date [...] as of this encounter (statuses as of 11/27/2023) Resolved Problems Problem Noted Date Diagnosed Date [...] previous appt. ABN BLOOD CHEMISTRY NEC 10/16/2004 08/0 01/2007 Esophageal reflux 12/27/2000 03/04/2007 HELICOBACTER PYLORI (H. 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 Esophagitis 10/06/2009 Overview: ICD-10 update of inactive term Asthma, severe persistent, poorly-controlled 12/21/2020 documented as of this encounter (statuses as of 11/27/2023) Immunizations Name Administration Dates Next Due COVID-19 [...] 10:35 AM EDT Cardiac Studies Cardiac Studies, [facility] [address] [place] [address] Scheduled Procedures Name Priority Associated Diagnoses Date/Ti [...] filedocumented as of this encounter Care Teams Prescription Benefit Specialist Relationship Specialty Start Date End Date Enrico Mccauley MD [address] [place] [address] PCP - General Family Medicine 08/19/19 documented as of this encounter
--- OUTSIDE RECORDS SUMMARY | 2023-12-29 21:37 | External Medical Summary | Summary of Care ---
Author Name Unknown Organization [facility] Address [address] [facility] [place] [address] Phone [phone] Care Team Providers Care Sample Preparation Supervisor Name Role Phone Enrico Mccauley MD Primary Care Provider [phone] [phone] Reason for Visit * Reason Onset Date Comments Abnormal Lab Results 10/22/2023 Encounter Details Date Type Department Care Team (Late st Contact Info) Description 10/22/2023 Telephone Family Practice [facility] [address] [place] [address] Enrico Mccauley MD [address] [place] [address] Abnormal Lab Results Allergies Active Allergy Reactions Criticality Noted Date Comments Gianluca Inhibitors Cough 06/12/2016 Cat Dander 03/31/2020 Ragweed 02/16/2020 Per patient's he is allergic to all weeds, trees, grasses documented as of this encounter (statuses as of 10/28/2023) Medications Medication Sig Dispensed Refills Start Date End Date Status ASPIRIN 81 MG PO TABS one tablet daily 0 Active Blood Glucose Monitoring Suppl ([employer] Platform ULTRA SYSTEM) W/DEVICE KITIndications:Type 2 diabetes mellitus with hemoglobin A1c goal of less than 7.5% ([facility]) Use as directed 2 times a day. E11.9 1 Kit 0 07/27/2016 Active Azelastine HCl 0.1 % nasal spray Administer 1 [place] into nostril 2 times a day. 30 [...] hemoglobin A1c goal of less than 8.0% ([facility]) Use up to four times daily to [...] hemoglobin A1c goal of less than 7.5% ([facility]) USE DIRECTED TWICE DAILY. USE UP TO FOUR TIMES A DAY DIRECTED. 100 Each 10 07/11/2023 Active Levalbuterol HCl 1.25 MG/3ML Inhalation Nebulization Solution (Xopenex) 0 07/28/2023 Active Ipratropium [place] 0.02 % Inhalation Solution (Atrovent) 2.5 mL. 0 07/28/2023 Activ e predniSONE 5 MG Oral Tablet (Deltasone) TAKE ONE TABLET BY MOUTH IN THE MORNING 90 Tablet 0 08/02/2023 Active Breo Ellipta 200-25 MCG/ACT Inhalation Aerosol [...] morning. 30 Tablet 5 09/17/2023 Active Tiotropium [place] Monohydrate 18 MCG Inhalation Capsule (Spiriva)Indication s:Severe [...] needed for Wheezing. 18 g 1 10/12/2022 4 Discontinu ed(Refill) Hospital, Clinic, or Other Facility Administered Medication Ordered Dose Route Frequency Start Date End Date Status omalizumab (XOLAIR) inj 150 mgIndications:Poorly controlled severe persistent asthma with acute exacerbation 150 mg SC [id number] 05/13/2020 Active omalizumab (XOLAIR) inj 150 mgIndications:Poorly controlled severe persistent asthma with acute exacerbation 150 mg SC [id number] 05/13/2020 Active documented as of this encounter (statuses as of 10/28/2023) Active Problems Problem Noted Date Diagnosed Date [...] as of this encounter (statuses as of 10/28/2023) Resolved Problems Problem Noted Date Diagnosed Date [...] as of this encounter (statuses as of 10/28/2023) Immunizations Name Administration Dates Next Due COVID-19 [...] Notes * Telephone Encounter - Maren Flowers [facility] - 10/22/2023 3:55 AM EDT [place] Date Value Ref Range Status 10/21/2023 60 (H) <30 mg/g Creat Final GLUCOSE Date Value Ref Range Status 10/21/2023 344 (H) 70 - 120 mg/dL Final Please review abnormal labs Last A1c 8.9 (05/24/23) - lab due again 11/22 Patient is only on Glipizide for diabetes control Patient was on Metformin, but stopped 06/2021 due to diarrhea Would recommend repeating A1c prior to upcoming OV and assess at that time A1c lab ordered and patient will be notified. Please advise if you would like lab drawn sooner. Thank You, Maren Flowers [facility] Clinical Pharmacist [facility] ([facility]) (formerly Telepharmacy) [phone] 10/22/2023, 4:03 AM documented in this encounter Plan of Treatment Upcoming Encounters Date Type Department Care Team (Late st Contact Info) Description 11/06/2023 9:00 AM EDT [facility] [address] [place] [address] Isha Gonsalez [address] [place] [address] 11/25/2023 10:20 AM EDT Office Visit Family Practice [facility] [address] [place] [address] Enrico Mccauley MD [address] [place] [phone] 02/07/2024 10:35 AM EDT Cardiac Studies Cardiac Studies, [facility] [address] [facility] [place] [address] Scheduled Orders Name Type Priority Associated Diagnoses Orde r Schedule HEMOGLOBIN A1C Lab Routine Encounter for long-term (current) use of medications Expected: 10/22/2023 (Approximate), Expires: 10/21/2024 Scheduled Procedures Name Priority Associated Diagnoses Date/Ti [...] medications documented in this encounter Care Teams Sample Preparation Supervisor Relationship Specialty Start Date End Date Enrico Mccauley MD [address] [place] [address] PCP - General Family Medicine 08/19/19 documented as of this encounter
--- OUTSIDE RECORDS SUMMARY | 2023-12-29 21:37 | External Medical Summary | Summary of Care ---
Author Name Unknown Organization [facility] Address [address] [facility] [place] [address] Phone [phone] Care Team Providers Care Dry Yard Worker Name Role Phone Shana Hamlin MD Primary Care Provider +1 [phone] Reason for Visit * Reason Onset Date Comments Medication Refill 10/12/2023 Encounter Details Date Type Department Care Team (Late st Contact Info) Description 10/12/2023 Refill Family Practice [facility] [address] [place] [address] Shana Hamlin MD [address] [place] [address] Allergies Active Allergy Reactions Criticality Noted Date Comments Gianluca Inhibitors Cough 06/12/2016 Cat Dander 03/31/2020 Ragweed 02/16/2020 Per patient's he is allergic to all weeds, trees, grasses documented as of this encounter (statuses as of 10/14/2023) Medications Medication Sig Dispensed Refills Start Date End Date Status ASPIRIN 81 MG PO TABS one tablet daily 0 Active Blood Glucose Monitoring Suppl (Earnix ULTRA SYSTEM) W/DEVICE KITIndications:Type 2 diabetes mellitus with hemoglobin A1c goal of less than 7.5% ([facility]) Use as directed 2 times a day. E11.9 1 Kit 0 07/27/2016 Active Azelastine HCl 0.1 % nasal spray Administer 1 [place] into nostril 2 times a day. 30 [...] hemoglobin A1c goal of less than 8.0% ([facility]) Use up to four times daily to check blood glucose 200 Strip 3 09/28/2022 Active Albuterol Sulfate HFA 108 (90 Base) [...] hemoglobin A1c goal of less than 7.5% ([facility]) USE DIRECTED TWICE DAILY. USE UP TO FOUR TIMES A DAY DIRECTED. 100 Each 10 07/11/2023 Active Levalbuterol HCl 1.25 MG/3ML Inhalation Nebulization Solution (Xopenex) 0 07/28/2023 Active Ipratropium [place] 0.02 % Inhalation Solution (Atrovent) 2.5 mL. [...] morning. 30 Tablet 5 09/17/2023 Active Tiotropium [place] Monohydrate 18 MCG Inhalation Capsule (Spiriva)Indication s:Severe [...] before bedtime 240 mL 1 10/14/2023 Active Sodium Chloride 3 % Inhalation Nebulization Solution Inhale 4ml via nebulizer in the morning and 4ml before bedtime 240 mL 1 07/22/2023 4 Discontinu ed(Refill) Hospital, Clinic, or Other Facility Administered Medication Ordered Dose Route Frequency Start Date End Date Status omalizumab (XOLAIR) inj 150 mgIndications:Poorly controlled severe persistent asthma with acute exacerbation 150 mg SC [id number] 05/13/2020 Active omalizumab (XOLAIR) inj 150 mgIndications:Poorly controlled severe persistent asthma with acute exacerbation 150 mg SC [id number] 05/13/2020 Active documented as of this encounter (statuses as of 10/14/2023) Active Problems Problem Noted Date Diagnosed Date [...] as of this encounter (statuses as of 10/14/2023) Resolved Problems Problem Noted Date Diagnosed Date [...] as of this encounter (statuses as of 10/14/2023) Immunizations Name Administration Dates Next Due COVID-19 [...] Telephone Encounter - Shana Hamlin MD - 10/14/2023 10:15 AM EDTSigned Prescriptions: Disp Refills Sodium Chloride 3 % Inhalation Nebulizatio*240 mL 1 Sig: Inhale 4ml via nebulizer in the morning and 4ml before bedtime Authorizing Provider: SHANA HAMLIN * Telephone Encounter - Avani Murillo LPN - 10/14/2023 8:35 AM EDTPending Prescriptions: Disp Refills Sodium Chloride 3 % Inhalation Nebulizatio*240 mL 1 Sig: Inhale 4ml via nebulizer in the morning and 4ml before bedtime * Telephone Encounter - Avani Murillo LPN - 10/14/2023 8:34 AM EDT Did you pend patient's preferred pharmacy and medication before forwarding?yes Pharmacy: [id number] [address] Pending Prescriptions: Disp Refills Sodium Chloride 3 % Inhalation Nebulizati*240 mL 1 Sig: Inhale 4ml via nebulizer in the morning and 4ml before bedtime Last Visit: 09/27/2023 (in office), Visit date not found (telemedicine) Next Visit: 11/25/2023 If no future appointments scheduled, and last appointment is greater than a year ago, please schedule patient for a follow-up appointment Last date the medication was ordered: 07/22/23 Is this request for a controlled substance?No [...] * Telephone Encounter - Zhang Tucker - 10/14/2023 7:12 AM EDTPending Prescriptions: Disp Refills Sodium Chloride 3 % Inhalation Nebulizatio*240 mL 1 Sig: Inhale 4ml via nebulizer in the morning and 4ml before bedtime documented in this encounter Plan of Treatment Upcoming Encounters Date Type Department Care Team (Late st Contact Info) Description 11/25/2023 10:20 AM EDT Office Visit Family Practice [facility] [address] [place] [address] Shana Hamlin MD [address] [place] [address] 02/07/2024 10:35 AM EDT Cardiac Studies Cardiac Studies, [facility] [address] [place] [id number] Scheduled Procedures Name Priority Associated Diagnoses Date/Ti [...] filedocumented as of this encounter Care Teams Dry Yard Worker Relationship Specialty Start Date End Date Shana Hamlin MD [address] [place] [address] PCP - General Family Medicine 08/19/19 documented as of this encounter
--- OUTSIDE RECORDS SUMMARY | 2023-12-29 21:37 | External Medical Summary ---
Author Name Unknown Address Unknown Organization [id number]:LABORATORY [facility] - [address] [place] [address] Laboratory Report Ordering Provider Test Date Status CHAIM RUBIO 10/21/2023 10:26:37 Final Observation Date Value Abnormality Reference (Units ) Status Magnesium 10/21/2023 10:26:37 1.8 1.5-2.6 (m g/dL) Final Performing Location LABORATORY [facility] - [address] [place] [address]
--- OUTSIDE RECORDS SUMMARY | 2023-12-29 21:37 | External Medical Summary ---
Author Name Unknown Address Unknown Organization [id number]:LABORATORY [facility] [place] - [address] [facility] [address] Laboratory Report Ordering Provider Test Date Status GUZMAN EARL 10/21/2023 10:26:37 Final Observation Date Value Abnormality Reference (Units ) Status Triglyceride 10/21/2023 10:26:37 233 Above high normal <=174 (mg/dL) Final Triglyceride Reference Range s (mg/dL):
<150 Acceptable
150-174 Borderline high
175-499 High
>=500 Very high Cholesterol 10/21/2023 10:26:37 131 <200 (mg /dL) Final Total Cholesterol Reference Ranges (mg/dL):
<200 Desirable
200-239 Borderline high
>=240 High HDL 10/21/2023 10:26:37 42 >39 (mg/dL ) Final HDL Cholesterol Reference Ra nges (mg/dL):
>=60 High (Desirable)
<50 Low (Undesirable) For Females
<40 Low (Undesirable) For Males NON-HDL CHOLESTEROL 10/21/2023 10:26:37 89 <=159 (mg/dL) Final Non-HDL Cholesterol Referenc e Range (mg/dL):
<100 Target level for high risk ASCVD patient
<130 Optimal for general population
130-159 Near optimal for general population
160-189 Borderline High
190-219 High
>=220 Very High Performing Location LABORATORY [facility] [place] [facility] [address] [facility] [address]
--- OUTSIDE RECORDS SUMMARY | 2023-12-29 21:37 | External Medical Summary ---
Author Name Unknown Address Unknown Organization K01:LABORATORY [facility] - [facility] [address] [place] [address] Laboratory Report Ordering Provider Test Date Status GUZMAN EARL 10/21/2023 10:32:49 Final Normal: <30 mg/g creatinine< br/>High: 30-300 mg/g creatinine
Very High: >300 mg/g creatinine
Nephrotic: >2200 mg/g creatinine Observation Date Value Abnormality Reference (Units ) Status Albumin, Urine 10/21/2023 10:32:49 5.16 (mg/dL) Final Creatinine, Urine 10/21/2023 10:32:49 86 (mg/dL) Final Albumin/Creatinine [Mass Ratio] in Urine 10/21/2023 10:32:49 60 Above high normal <30 (mg/g Creat) Final Performing Location LABORATORY [facility] - [facility] [address] [place] [address]
--- OUTSIDE RECORDS SUMMARY | 2023-12-29 21:37 | External Medical Summary | Summary of Care ---
Author Name Unknown Organization [facility] Address [address] [facility] [address] Phone [phone] Care Team Providers Care Income Tax Adjuster Name Role Phone Enrico Mccauley MD Primary Care Provider [phone] [phone] Encounter Details Date Type Department Care Team (Late st Contact Info) Description 10/24/2023 Orders Only PATIENT PORTAL DO NOT DELETE THIS DEPT USED BY [place] [id number] Allergies Active Allergy Reactions Criticality Noted Date Comments Gianluca Inhibitors Cough 06/12/2016 Cat Dander 03/31/2020 Ragweed 02/16/2020 Per patient's he is allergic to all weeds, trees, grasses documented as of this encounter (statuses as of 10/24/2023) Medications Medication Sig Dispensed Refills Start Date End Date Status ASPIRIN 81 MG PO TABS one tablet daily 0 Active Blood Glucose Monitoring Suppl (AudioCaseFilesUCH ULTRA SYSTEM) W/DEVICE KITIndications:Type 2 diabetes mellitus with hemoglobin A1c goal of less than 7.5% ([facility]) Use as directed 2 times a day. E11.9 1 Kit 0 07/27/2016 Active Azelastine HCl 0.1 % nasal spray Administer 1 [place] into nostril 2 times a day. 30 [...] goal of less than 8.0% ([facility]) Use up to four times daily [...] goal of less than 7.5% ([facility]) USE DIRECTED TWICE DAILY. USE UP TO FOUR TIMES A DAY DIRECTED. 100 Each 10 07/11/2023 Active Levalbuterol HCl 1.25 MG/3ML Inhalation Nebulization Solution (Xopenex) 0 07/28/2023 Active Ipratropium [place] 0.02 % Inhalation Solution (Atrovent) 2.5 mL. [...] morning. 30 Tablet 5 09/17/2023 Active Tiotropium [place] Monohydrate 18 MCG Inhalation Capsule (Spiriva)Indications :Severe [...] For 10 days.. 20 Capsule 0 10/22/2023 4 Active predniSONE 10 MG Oral Tablet (Deltasone)Indicatio ns:Severe persistent asthma with acute exacerbation,Shortne ss of breath,Bronchiectasi s with acute exacerbation (HCC) Take 5 tabs for 2 days, 4 tabs for 2 days, 3 tabs for 2 days, 2 tabs for 2 days 1 tab for 2 days 30 Tablet 0 10/22/2023 Active Hospital, Clinic, or Other Facility Administered Medication Ordered Dose Route Frequency Start Date End Date Status omalizumab (XOLAIR) inj 150 mgIndications:Poorly controlled severe persistent asthma with acute exacerbation 150 mg SC [id number] 05/13/2020 Active omalizumab (XOLAIR) inj 150 mgIndications:Poorly controlled severe persistent asthma with acute exacerbation 150 mg SC [id number] 05/13/2020 Active documented as of this encounter (statuses as of 10/24/2023) Active Problems Problem Noted Date Diagnosed Date [...] as of this encounter (statuses as of 10/24/2023) Resolved Problems Problem Noted Date Diagnosed Date [...] as of this encounter (statuses as of 10/24/2023) Immunizations Name Administration Dates Next Due COVID-19 [...] 10:20 AM EDT Office Visit Family Practice [facility] [address] [place] [address] Enrico Mccauley MD [address] [place] [address] 02/07/2024 10:35 AM EDT Cardiac Studies Cardiac Studies, [facility] [address] [place] [address] Scheduled Procedures Name Priority Associated Diagnoses Date/Ti [...] 07/13/2022, Additional history exists TSH 05/24/2024 05/24/2023, 110 [...] filedocumented as of this encounter Care Teams Income Tax Adjuster Relationship Specialty Start Date End Date Enrico Mccauley MD [address] [place] [address] [address] PCP - General Family Medicine 08/19/19 documented as of this encounter
--- OUTSIDE RECORDS SUMMARY | 2023-12-29 21:37 | External Medical Summary | Summary of Care ---
Author Name Unknown Organization [facility] Address [address] [facility] [place] [address] Phone [phone] Care Team Providers Care Sanitation Superintendent Name Role Phone Enrico Mccauley MD Primary Care Provider [phone] [phone] Reason for Visit * Reason Comments Outpatient Testing Encounter Details Date Type Department Care Team (Late st Contact Info) Description 10/21/2023 10:30 AM EDT Laboratory Laboratory, [facility] [address] [facility] [address] [facility] [address] [facility] [address] Encounter for long-term (current) use of medications Allergies Active Allergy Reactions Criticality Noted Date Comments Gianluca Inhibitors Cough 06/12/2016 Cat Dander 03/31/2020 Ragweed 02/16/2020 Per patient's he is allergic to all weeds, trees, grasses documented as of this encounter (statuses as of 10/21/2023) Medications Medication Sig Dispensed Refills Start Date End Date Status ASPIRIN 81 MG PO TABS one tablet daily 0 Active Blood Glucose Monitoring Suppl (ReliOn ULTRA SYSTEM) W/DEVICE KITIndications:Type 2 diabetes mellitus with hemoglobin A1c goal of less than 7.5% ([facility]) Use as directed 2 times a day. E11.9 1 Kit 0 07/27/2016 Active Azelastine HCl 0.1 % nasal spray Administer 1 [place] into nostril 2 times a day. 30 [...] A1c goal of less than 8.0% ([facility]) Use up to four times [...] A1c goal of less than 7.5% ([facility]) USE DIRECTED TWICE DAILY. USE UP TO FOUR TIMES A DAY DIRECTED. 100 Each 10 07/11/2023 Active Levalbuterol HCl 1.25 MG/3ML Inhalation Nebulization Solution (Xopenex) 0 07/28/2023 Active Ipratropium [place] 0.02 % Inhalation Solution (Atrovent) 2.5 mL. [...] morning. 30 Tablet 5 09/17/2023 Active Tiotropium [place] Monohydrate 18 MCG Inhalation Capsule (Spiriva)Indications :Severe [...] before bedtime 240 mL 1 10/14/2023 Active Hospital, Clinic, or Other Facility Administered Medication Ordered Dose Route Frequency Start Date End Date Status omalizumab (XOLAIR) inj 150 mgIndications:Poorly controlled severe persistent asthma with acute exacerbation 150 mg SC [id number] 05/13/2020 Active omalizumab (XOLAIR) inj 150 mgIndications:Poorly controlled severe persistent asthma with acute exacerbation 150 mg SC [id number] 05/13/2020 Active documented as of this encounter (statuses as of 10/21/2023) Active Problems Problem Noted Date Diagnosed Date [...] as of this encounter (statuses as of 10/21/2023) Resolved Problems Problem Noted Date Diagnosed Date [...] as of this encounter (statuses as of 10/21/2023) Immunizations Name Administration Dates Next Due COVID-19 [...] 10:20 AM EDT Office Visit Family Practice [facility] [address] [place] [address] [address] Enrico Mccauley MD [address] [place] [address] [address] 02/07/2024 10:35 AM EDT Cardiac Studies Cardiac Studies, [facility] [address] [place] [address] [address] Pending Results Name Type Priority Associated Diagnoses Date /Time BASIC METABOLIC PANEL Lab Routine Encounter for long-term (current) use of medications 10/21/2023 10:26 AM EDT LIPID PANEL WITH DIRECT LDL IF TG IS HIGH Lab Routine Encounter for long-term (current) use of medications 10/21/2023 10:26 AM EDT VITAMIN B12 Lab Routine Encounter for long-term (current) use of medications 10/21/2023 10:26 AM EDT MAGNESIUM Lab Routine Encounter for long-term (current) use of medications 10/21/2023 10:26 AM EDT ALBUMIN / CREATININE RATIO, URINE Lab Routine Encounter for long-term (current) use of medications 10/21/2023 10:32 AM EDT Scheduled Procedures Name Priority Associated [...] medications documented in this encounter Care Teams Sanitation Superintendent Relationship Specialty Start Date End Date Enrico Mccauley MD [address] [facility] [place] [address] PCP - General Family Medicine 08/19/19 documented as of this encounter
--- OUTSIDE RECORDS SUMMARY | 2023-12-29 21:37 | External Medical Summary ---
Author Name Unknown Address Unknown Organization K0G:LABORATORY [facility] [address] - [address] [place] [address] Laboratory Report Ordering Provider Test Date Status GUZMAN EARL 10/21/2023 10:26:37 Final Observation Date Value Abnormality Reference (Units ) Status BUN 10/21/2023 10:26:37 14 6-20 (mg/dL) Final Creatinine 10/21/2023 10:26:37 0.9 0.6-1.2 (mg/dL) Final Glomerular filtration rate/1.73 sq M.predicted [Volume Rate/Area] in Serum, Plasma or Blood by Creatinine-based formula (CKD-EPI) 10/21/2023 10:26:37 85 >=60 (mL/min) Final eGFR is calculated based on the CKD-EPI 2020 equation Sodium 10/21/2023 10:26:37 138 135-146 (m mol/L) Final Potassium 10/21/2023 10:26:37 3.6 3.5-5.1 (m mol/L) Final Cl 10/21/2023 10:26:37 99 98-107 (mm ol/L) Final CO2 10/21/2023 10:26:37 27 22-32 (mmo l/L) Final Anion gap 10/21/2023 10:26:37 12 7-15 (mmol /L) Final Glucose 10/21/2023 10:26:37 344 Above high normal 70 -120 (mg/dL) Final Calcium 10/21/2023 10:26:37 8.9 8.4-10.2 ( mg/dL) Final Performing Location LABORATORY [facility] [address] - [address] [place] [address]
--- OUTSIDE RECORDS SUMMARY | 2023-12-29 21:37 | External Medical Summary | Summary of Care ---
Author Name Unknown Organization [facility] Address [address] [place] [address] Phone [phone] Care Team Providers Care Cmo & President Name Role Phone Shana Hamlin MD Primary Care Provider [phone] [phone] Reason for Visit * Reason Onset Date Comments Medication Refill 10/26/2023 Encounter Details Date Type Department Care Team (Late st Contact Info) Description 10/26/2023 Refill [facility] [address] [place] [address] NovemberMarcin MD [address] [place] [address] Complicated acute bronchitis Allergies Active Allergy Reactions Criticality Noted Date Comments Gianluca Inhibitors Cough 06/12/2016 Cat Dander 03/31/2020 Ragweed 02/16/2020 Per patient's he is allergic to all weeds, trees, grasses documented as of this encounter (statuses as of 10/27/2023) Medications Medication Sig Dispensed Refills Start Date End Date Status ASPIRIN 81 MG PO TABS one tablet daily 0 Active Blood Glucose Monitoring Suppl (Imaginatik ULTRA SYSTEM) W/DEVICE KITIndications:Type 2 diabetes mellitus with hemoglobin A1c goal of less than 7.5% ([facility]) Use as directed 2 times a day. E11.9 1 Kit 0 07/27/2016 Active Azelastine HCl 0.1 % nasal spray Administer 1 [place] into nostril 2 times a day. 30 [...] A1c goal of less than 8.0% ([facility]) Use up to four times [...] A1c goal of less than 7.5% ([facility]) USE DIRECTED TWICE DAILY. USE UP TO FOUR TIMES A DAY DIRECTED. 100 Each 10 07/11/2023 Active Levalbuterol HCl 1.25 MG/3ML Inhalation Nebulization Solution (Xopenex) 0 07/28/2023 Active Ipratropium [place] 0.02 % Inhalation Solution (Atrovent) 2.5 mL. [...] morning. 30 Tablet 5 09/17/2023 Active Tiotropium [place] Monohydrate 18 MCG Inhalation Capsule (Spiriva)Indication s:Severe [...] 10/14/2023 Active Cefdinir 300 MG Oral Capsule (Omnicef)Indication s:Severe persistent asthma with acute exacerbation,Shortn ess of breath,Bronchiectas is with acute exacerbation (HCC) Take 1 Capsule by mouth in the morning and 1 Capsule before bedtime. Do all this for 10 days. For 10 days.. 20 Capsule 0 10/22/2023 11/01/19 24 Active predniSONE 10 MG Oral Tablet (Deltasone)Indicati [...] for Wheezing. 18 g 1 10/27/2023 Active Albuterol Sulfate HFA 108 (90 Base) MCG/ACT Inhalation Aerosol SolutionIndications :Complicated acute bronchitis Inhale 2 Puffs by mouth every 4 hours as needed for Wheezing. 18 g 1 10/12/2022 10/26/19 24 Discontinu ed(Refill) Hospital, Clinic, or Other Facility Administered Medication Ordered Dose Route Frequency Start Date End Date Status omalizumab (XOLAIR) inj 150 mgIndications:Poorly controlled severe persistent asthma with acute exacerbation 150 mg SC [id number] 05/13/2020 Active omalizumab (XOLAIR) inj 150 mgIndications:Poorly controlled severe persistent asthma with acute exacerbation 150 mg SC [id number] 05/13/2020 Active documented as of this encounter (statuses as of 10/27/2023) Active Problems Problem Noted Date Diagnosed Date [...] as of this encounter (statuses as of 10/27/2023) Resolved Problems Problem Noted Date Diagnosed Date [...] as of this encounter (statuses as of 10/27/2023) Immunizations Name Administration Dates Next Due COVID-19 [...] encounter Miscellaneous Notes * Telephone Encounter - Ariel Flor RPh - 10/27/2023 9:16 AM EDTSigned Prescriptions: Disp Refills Albuterol Sulfate HFA 108 (90 Base) MCG/AC*18 g 1 Sig: Inhale 2 Puffs by mouth every 4 hours as needed for Wheezing.Authorizing Provider: SHANA HAMLIN User: ARIEL FLOR documented in this encounter Plan of Treatment Upcoming Encounters Date Type Department Care Team (Late st Contact Info) Description 11/06/2023 9:00 AM EDT Laboratory Laboratory, [facility] [address] [place] [id number] Isha Gonsalezs [address] [place] [address] 11/25/2023 10:20 AM EDT Office Visit Family Practice [facility] [address] [place] [address] Shana Hamlin MD [address] [place] [address] 02/07/2024 10:35 AM EDT [facility] [address] [place] [address] Scheduled Procedures Name Priority Associated Diagnoses Date/Ti [...] 03/23/2019, Additional history exists HbA1c 11/23/2023 05/24/2023, 042 [...] as of this encounter Visit Diagnoses Diagnosis Complicated acute bronchitis Acute bronchitis documented in this encounter Care Teams Cmo & President Relationship Specialty Start Date End Date Shana Hamlin MD [address] [place] [address] PCP - General Family Medicine 08/19/19 documented as of this encounter
--- OUTSIDE RECORDS SUMMARY | 2023-12-29 21:37 | External Medical Summary | Summary of Care ---
Author Name Unknown Organization [facility] Address [address] [address] Phone [phone] Care Team Providers Care Electric Cutter Operator Name Role Phone Enrico Mccauley MD Primary Care Provider [phone] [phone] Encounter Details Date Type Department Care Team (Late st Contact Info) Description 10/05/2023 Orders Only PATIENT PORTAL DO NOT DELETE THIS DEPT USED BY [place] [id number] Allergies Active Allergy Reactions Criticality Noted Date Comments Gianluca Inhibitors Cough 06/12/2016 Cat Dander 03/31/2020 Ragweed 02/16/2020 Per patient's he is allergic to all weeds, trees, grasses documented as of this encounter (statuses as of 10/05/2023) Medications Medication Sig Dispensed Refills Start Date End Date Status ASPIRIN 81 MG PO TABS one tablet daily 0 Active Blood Glucose Monitoring Suppl (DocLandingUCH ULTRA SYSTEM) W/DEVICE KITIndications:Type 2 diabetes mellitus with hemoglobin A1c goal of less than 7.5% ([facility]) Use as directed 2 times a day. E11.9 1 Kit 0 07/27/2016 Active Azelastine HCl 0.1 % nasal spray Administer 1 [place] into nostril 2 times a day. 30 [...] nostril daily 51 g 0 07/04/2023 Active KeylaMitchellsheila Dupontfranky Oglesby 33GIndications:Type 2 diabetes mellitus with hemoglobin A1c goal of less than 7.5% ([facility]) USE DIRECTED TWICE DAILY. USE UP TO FOUR TIMES A DAY DIRECTED. 100 Each 10 07/11/2023 Active Sodium Chloride 3 % Inhalation Nebulization Solution Inhale 4ml via nebulizer in the morning and 4ml before bedtime 240 mL 1 07/22/2023 Active Levalbuterol HCl 1.25 MG/3ML Inhalation Nebulization Solution (Xopenex) 0 07/28/2023 Active Ipratropium [place] 0.02 % Inhalation Solution (Atrovent) 2.5 mL. [...] the morning. 30 Tablet 5 09/17/2023 Active predniSONE 20 MG Oral Tablet (Deltasone) Take 2 Tablets by mouth daily for 5 days, THEN 1 Tablet daily for 5 days. 15 Tablet 0 09/27/2023 4 Active Doxycycline Hyclate 100 MG Oral Capsule Take 1 Capsule by mouth in the morning and 1 Capsule before bedtime. Do all this for 10 days. Until gone.. 20 Capsule 0 09/27/2023 4 Active Amoxicillin-Pot Clavulanate 875-125 MG Oral Tablet (Augmentin) Take 1 Tablet by mouth in the morning and 1 Tablet before bedtime. Do all this for 10 days. 20 Tablet 0 09/27/2023 4 Active Tiotropium [place] Monohydrate 18 MCG Inhalation Capsule (Spiriva)Indications :Severe persistent asthma dependent on systemic steroids INHALE 1 CAPSULE BY MOUTH ONCE DAILY VIA HANDIHALER . DO NOT SWALLOW 30 Capsule 0 10/01/2023 Active Omeprazole 20 MG Oral Capsule Delayed Release (PriLOSEC) TAKE 1 CAPSULE BY MOUTH TWICE DAILY 30 MINUTES BEFORE A MEAL 180 Capsule 1 10/02/2023 Active Hospital, Clinic, or Other Facility Administered Medication Ordered Dose Route Frequency Start Date End Date Status omalizumab (XOLAIR) inj 150 mgIndications:Poorly controlled severe persistent asthma with acute exacerbation 150 mg SC [id number] 05/13/2020 Active omalizumab (XOLAIR) inj 150 mgIndications:Poorly controlled severe persistent asthma with acute exacerbation 150 mg SC [id number] 05/13/2020 Active documented as of this encounter (statuses as of 10/05/2023) Active Problems Problem Noted Date Diagnosed Date [...] as of this encounter (statuses as of 10/05/2023) Resolved Problems Problem Noted Date Diagnosed Date [...] as of this encounter (statuses as of 10/05/2023) Immunizations Name Administration Dates Next Due COVID-19 [...] 10:20 AM EDT Office Visit Family Practice [facility] [address] [place] [address] Enrico Mccauley MD [address] [place] [address] 02/07/2024 10:35 AM EDT Cardiac Studies Cardiac Studies, [facility] [address] [place] [address] Scheduled Procedures Name Priority Associated Diagnoses Date/Ti [...] filedocumented as of this encounter Care Teams Electric Cutter Operator Relationship Specialty Start Date End Date Enrico Mccauley MD [address] [place] [address] PCP - General Family Medicine 08/19/19 documented as of this encounter
--- OUTSIDE RECORDS SUMMARY | 2023-12-29 21:37 | External Medical Summary | Summary of Care ---
Author Name Unknown Organization [facility] Address [address] [facility] [place] [address] Phone [phone] Care Team Providers Care Safety Grooving Machine Operator Name Role Phone Enrico Mccauley MD Primary Care Provider [phone] Reason for Visit * Reason Comments Outpatient Testing Encounter Details Date Type Department Care Team (Late st Contact Info) Description 10/21/2023 10:30 AM EDT Laboratory Laboratory, [facility] [address] [facility] [place] [address] [facility] [address] [facility] [address] Encounter for long-term (current) use of medications [...] daily 0 Active Blood Glucose Monitoring Suppl (Recor[employer]o ULTRA SYSTEM) W/DEVICE KITIndications:Type 2 diabetes mellitus with hemoglobin A1c goal of less than 7.5% ([facility]) Use as directed 2 times a day. E11.9 1 Kit 0 07/27/2016 Active Azelastine HCl 0.1 % nasal spray Administer 1 [place] into nostril 2 times a day. 30 [...] hemoglobin A1c goal of less than 8.0% ([facility]) Use up to four times daily to [...] hemoglobin A1c goal of less than 7.5% ([facility]) USE DIRECTED TWICE DAILY. USE UP TO FOUR TIMES A DAY DIRECTED. 100 Each 10 07/11/2023 Active Levalbuterol HCl 1.25 MG/3ML Inhalation Nebulization Solution (Xopenex) 0 07/28/2023 Active Ipratropium [place] 0.02 % Inhalation Solution (Atrovent) 2.5 mL. [...] morning. 30 Tablet 5 09/17/2023 Active Tiotropium [place] Monohydrate 18 MCG Inhalation Capsule (Spiriva)Indications :Severe [...] asthma with acute exacerbation 150 mg SC [id number] 05/13/2020 Active omalizumab (XOLAIR) inj 150 mgIndications:Poorly controlled severe persistent asthma with acute exacerbation 150 mg SC [id number] 05/13/2020 Active documented as of this encounter [...] 10:20 AM EDT Office Visit Family Practice [facility] [address] [place] [address] Enrico Mccauley MD [address] [place] [address] 02/07/2024 10:35 AM EDT Cardiac Studies Cardiac Studies, [facility] [address] [place] [address] Pending Results Name Type Priority Associated Diagnoses [...] medications documented in this encounter Care Teams Safety Grooving Machine Operator Relationship Specialty Start Date End Date Enrico Mccauley MD [address] [facility] [place] [address] PCP - General Family Medicine 08/19/19 documented as of this encounter
--- OUTSIDE RECORDS SUMMARY | 2023-12-29 21:37 | External Medical Summary | Summary of Care ---
Author Name Unknown Organization [facility] Address [address] [facility] [place] [address] Phone [phone] Care Team Providers Care Corporate Responsibility Officer Name Role Phone Enrico Mccauley MD Primary Care Provider [phone] Reason for Visit * Reason Onset Date Comments Abnormal Lab Results 10/22/2023 Encounter Details Date Type Department Care Team (Late st Contact Info) Description 10/22/2023 Telephone Family Practice [facility] [address] [place] [address] Enrico Mccauley MD [address] [place] [id number] Abnormal Lab Results Allergies Active Allergy Reactions Criticality Noted Date Comments Gianluca Inhibitors Cough 06/12/2016 Cat Dander 03/31/2020 Ragweed 02/16/2020 Per patient's he is allergic to all weeds, trees, grasses documented as of this encounter (statuses as of 10/22/2023) Medications Medication Sig Dispensed Refills Start Date End Date Status ASPIRIN 81 MG PO TABS one tablet daily 0 Active Blood Glucose Monitoring Suppl ([employer] [facility] ULTRA SYSTEM) W/DEVICE KITIndications:Type 2 diabetes mellitus with hemoglobin A1c goal of less than 7.5% ([facility] Use as directed 2 times a day. E11.9 1 Kit 0 07/27/2016 Active Azelastine HCl 0.1 % nasal spray Administer 1 [place] into nostril 2 times a day. 30 [...] A1c goal of less than 8.0% ([facility]) Use up to four [...] A1c goal of less than 7.5% ([facility]) USE DIRECTED TWICE DAILY. USE UP TO FOUR TIMES A DAY DIRECTED. 100 Each 10 07/11/2023 Active Levalbuterol HCl 1.25 MG/3ML Inhalation Nebulization Solution (Xopenex) 0 07/28/2023 Active Ipratropium [place] 0.02 % Inhalation Solution (Atrovent) 2.5 mL. [...] morning. 30 Tablet 5 09/17/2023 Active Tiotropium [place] Monohydrate 18 MCG Inhalation Capsule (Spiriva)Indications :Severe [...] asthma with acute exacerbation 150 mg SC [id number] 05/13/2020 Active omalizumab (XOLAIR) inj 150 mgIndications:Poorly controlled severe persistent asthma with acute exacerbation 150 mg SC [id number] 05/13/2020 Active documented as of this encounter (statuses as of 10/22/2023) Active Problems Problem Noted Date Diagnosed Date [...] as of this encounter (statuses as of 10/22/2023) Resolved Problems Problem Noted Date Diagnosed Date [...] as of this encounter (statuses as of 10/22/2023) Immunizations Name Administration Dates Next Due COVID-19 [...] Notes * Telephone Encounter - Maren Flowers [facility] - 10/22/2023 3:55 AM EDT [place] [...] lab drawn sooner. Thank You, Maren Flowers [facility] Clinical Pharmacist [facility] ([facility]) (formerly Telepharmacy) [phone] 10/22/2023, 4:03 AM documented in this encounter Plan of Treatment Upcoming Encounters Date Type Department Care Team (Late st Contact Info) Description 11/25/2023 10:20 AM EDT Office Visit Family Practice [facility] [address] [address] Enrico Mccauley MD [address] [place] [address] 02/07/2024 10:35 AM EDT Cardiac Studies Cardiac Studies, [facility] [address] [address] Scheduled Orders Name Type Priority Associated Diagnoses [...] medications documented in this encounter Care Teams Corporate Responsibility Officer Relationship Specialty Start Date End Date Enrico Mccauley MD [address] [place] [address] PCP - General Family Medicine 08/19/19 documented as of this encounter
--- OUTSIDE RECORDS SUMMARY | 2023-12-29 21:37 | External Medical Summary | Summary of Care ---
Author Name Unknown Organization [facility] Address [address] [place] [address] Phone [phone] Care Team Providers Care It Project Manager Name Role Phone Enrico Mccauley MD Primary Care Provider [phone] [phone] Reason for Visit * Reason Comments Short of Breath States he is having a hard time breathing and his pulse is elevated. O2 sat has been between 87%-90%. Also has a cough at times. This started yesterday. Encounter Details Date Type Department Care Team (Late st Contact Info) Description 10/22/2023 10:20 AM EDT Office Visit General Internal Medicine [facility] [address] [place] [address] Hoa Tom MD [address] [place] [address] Severe persistent asthma with acute exacerbation*; Shortness of breath; Bronchiectasis with acute exacerbation (HCC) Allergies Active Allergy Reactions Criticality Noted [...] HCl 0.1 % nasal spray Administer 1 [place] into nostril 2 times a day. 30 [...] Nebulization Solution (Xopenex) 0 07/28/2023 Active Ipratropium [place] 0.02 % Inhalation Solution (Atrovent) 2.5 mL. [...] morning. 30 Tablet 5 09/17/2023 Active Tiotropium [place] Monohydrate 18 MCG Inhalation Capsule (Spiriva)Indications :Severe [...] asthma with acute exacerbation 150 mg SC [id number] 05/13/2020 Active omalizumab (XOLAIR) inj 150 mgIndications:Poorly controlled severe persistent asthma with acute exacerbation 150 mg SC [id number] 05/13/2020 Active documented as of this encounter [...] Sign Reading Time Taken Comments Blood Pressure 140/80 10/22/2023 10:35 AM EDT Pulse 92 10/22/2023 10:58 AM EDT Temperature 36.8 C (98.3 F) 10/22/2023 10:35 AM E DT Respiratory Rate - - Oxygen Saturation 90% 10/22/2023 10:35 AM EDT Inhaled Oxygen Concentration - - Weight 75.4 kg (166 lb 4.8 oz) 10/22/2023 10:35 AM EDT Height - - Body Mass Index 30.42 09/27/2023 11:19 AM EST documented in this encounter Progress Notes * Hoa Tom MD - 10/22/2023 10:40 AM EDT SUBJECTIVE: Alcides Sebastian is a 78 year old male. Chief Complaint Patient presents with Short of Breath States he is having a hard time breathing and his pulse is elevated. O2 sat has been between 87%-90%. Also has a cough at times. This started yesterday. HPI: Patient presents today for acute 20 min appointment. Admits to shortness of breath which started last night, occasional cough productive of yellowish sputum. No fever or chills. No pleuritic chest pain denies runny nose or sore throat, no leg edema. had similar symptoms beginning of the month, was seen in the ED, chest x-ray was negative, BNP negative, had been given Pred taper doxycycline and Augmentin which he completed. States home oxygen ranges usually 93% on room air when he is sick it is ranges between 87-90%. Admits compliance with some Zyrtec, Singulair, Spiriva, Breo, prednisone 5 mg, rare use of albuterol inhaler maybe twice since yesterday Last pulmonology notes from July were reviewed. Immunization History Administered Date(s) Administered COVID-19 mRNA, LNP-s, No Preserve, 2-Dose Series (Moderna) 10/08/2020, 11/08/2020 Pneumococcal Conjugate Vacc, 13 Valent (Prevnar) 08/17/2014 Pneumococcal Polysaccharide PPV23 (Pneumovax) 10/12/2011 RSV Vac., Bivalent, Perfusion F, Pf,0.5 Ml (Abrysvo) 05/24/2023 Season Influenza, Quad, PF, Adjuvanted, 65+ Yrs, IM (FLUAD) 05/09/2020 Seasonal Influenza, PF, 6 M & above, IM , (FluLaval or Fluzone) 06/06/2017, 05/19/2018, 05/06/2019 Seasonal Influenza, Quadrivalent Hd (Fluzone Hd) 06/02/2022, 05/24/2023 Seasonal Influenza, Quadrivalent, No Preserve, IM 06/02/2015, 05/09/2016 Seasonal Influenza, Split, IIV3, With Preserve, Inj 04/29/2006, 06/15/2009, 05/12/2010, 06/04/2011,05/17/2012, 05/16/2013, 05/28/2014 TDAP (age 10 and older)(Boostrix) 02/06/2019 TDAP (age 11 and older)(Adacel) 03/04/2007 Varicella Zoster Vaccine (Adult) 04/18/2012 Patient Active Problem List Diagnosis Code Acquired hypothyroidism E03.9 Dyslipidemia E78.5 HTN, goal below 130/80 I10 Type 2 diabetes mellitus with hemoglobin A1c goal of less than 8.0% ([facility]) 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, N13.8 PHILLIP (obstructive sleep apnea) G47.33 Periodic limb movement disorder (PLMD) G47.61 Migraine variant G43.809 Mild aortic stenosis I35.0 Severe persistent asthma dependent on systemic steroids J45.50, Z79.52 Restrictive lung disease J98.4 Obesity, Class I, BMI 30.0-34.9 (see actual BMI) E66.9 Chronic heart failure with preserved ejection fraction ([facility]) I50.32 Gastroesophageal reflux disease without esophagitis K21.9 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 E11.9 1 Kit 0 Azelastine HCl 0.1 % nasal spray Administer 1 [place] into nostril 2 times a day. 30 mL 5 cetirizine (ZYRTEC) 10 MG Tablet Take 1 Tab by mouth daily. 90 Tab 3 Nitroglycerin 0.4 MG Sublingual Tablet Sublingual (Nitrostat) Place 1 Tab under the tongue every 5 minutes as needed for Pain, Chest. up to 3 doses in 15 minutes 25 Tab 11 Vitamin B-12 1000 MCG Oral Tablet TAKE 1 TABLET BY MOUTH ONCE DAILY 100 Tablet 2 [facility] Glucose Meter Test Strips In Vitro Strip (Glucose Blood) Use up to four times daily to check blood glucose 200 Strip 3 Albuterol Sulfate HFA 108 (90 Base) MCG/ACT [...] into each nostril daily 51 g 0 FamilonetTouch Delica Lancets 33G USE DIRECTED TWICE DAILY. USE UP TO FOUR TIMES A DAY DIRECTED. 100 Each 10 Levalbuterol HCl 1.25 MG/3ML Inhalation Nebulization Solution (Xopenex) Ipratropium [place] 0.02 % Inhalation Solution (Atrovent) 2.5 mL. predniSONE 5 MG Oral Tablet (Deltasone) TAKE ONE TABLET BY MOUTH IN THE MORNING 90 Tablet 0 Breo Ellipta 200-25 MCG/ACT Inhalation Aerosol Powder [...] mouth in the morning. 30 Tablet 5 Tiotropium [place] Monohydrate 18 MCG Inhalation Capsule (Spiriva) INHALE 1 CAPSULE BY MOUTH ONCE DAILY VIA HANDIHALER . DO NOT SWALLOW 30 Capsule 0 Omeprazole 20 MG Oral Capsule Delayed Release (PriLOSEC) TAKE 1 CAPSULE BY MOUTH TWICE DAILY 30 MINUTES BEFORE A MEAL 180 Capsule 1 Sodium Chloride 3 % Inhalation Nebulization Solution Inhale 4ml via nebulizer in the morning and 4ml before bedtime 240 mL 1 Tadalafil (CIALIS) 20 MG Tablet Take 1 Tab by mouth daily as needed for Erectile Dysfunction. Priorto intercourse, no more than 1 dose in 24 hours. 24 Tab 3 SUMAtriptan Succinate 25 MG Oral Tablet (Imitrex) take 2 tablets by mouth at onset of migraine, and1 tablet every 2 hours if needed; not more than 5 tablets in 24 hours 6 Tablet 11 Arnuity Ellipta 100 MCG/ACT Inhalation Aerosol Powder Breath Activated (fluticasone Furoate) inhale1 puff by mouth once daily - rinse mouth after use (Patient not taking: Reported on 10/22/2023) 90 Each 2 Current Facility-Administered Medications Medication Dose Route Frequency Provider Last Rate Last Admin omalizumab (XOLAIR) inj 150 mg 150 mg Subcutaneous Q4 Weeks Rhed, Asmita Lana, KETTLE SKIMMER 150 mg at 10/04/23 1006 omalizumab (XOLAIR) inj 150 mg 150 mg Subcutaneous Q4 Weeks Rhed, Asmita Lana, KETTLE SKIMMER 150 mg at 10/04/23 1005 Review of patient's allergies indicates: Allergen Reactions Gianluca Inhibitors Cough Cats [Cat Dander] Environmental [Ragweed] Per patient's he is allergic to all weeds, trees, grasses OBJECTIVE: BP 140/80 | Pulse 102 | Temp 36.8 C (98.3 F) (Tympanic) | Wt 75.4 kg (166 lb 4.8 oz) | SpO2 90%| BMI 30.42 kg/m | BSA 1.82 m PHYSICAL EXAM: General: alert, healthy, no distress, well nourished and well developed Ears: External ears normal, Canals clear, TM's Normal Nose: mild mucosal edema, no purulent discharge, no mucosal erythema, no sinus tenderness Oropharynx: no exudate, no erythema Neck: supple, no adenopathy Heart: regular Rhythm and rate 92bpm,no murmurs Lungs: lungs clear to auscultation ex lito rales lower 1/[address] scan May 19 was reviewed--has mild bronchiectases ASSESSMENT/PLAN: Severe persistent asthma with acute exacerbation (Primary) - Cefdinir 300 MG Oral Capsule (Omnicef); Take 1 Capsule by mouth in the morning and 1 Capsule before bedtime. Do all this for 10 days. For 10 days.. - predniSONE 10 MG Oral Tablet (Deltasone); Take 5 tabs for 2 days, 4 tabs for 2 days, 3 tabs for 2days, 2 tabs for 2 days 1 tab for 2 days Shortness of breath - Cefdinir 300 MG Oral Capsule (Omnicef); Take 1 Capsule by mouth in the morning and 1 Capsule before bedtime. Do all this for 10 days. For 10 days.. - predniSONE 10 MG Oral Tablet (Deltasone); Take 5 tabs for 2 days, 4 tabs for 2 days, 3 tabs for 2days, 2 tabs for 2 days 1 tab for 2 days Bronchiectasis with acute exacerbation (HCC) - Cefdinir 300 MG Oral Capsule (Omnicef); Take 1 Capsule by mouth in the morning and 1 Capsule before bedtime. Do all this for 10 days. For 10 days.. - predniSONE 10 MG Oral Tablet (Deltasone); Take 5 tabs for 2 days, 4 tabs for 2 days, 3 tabs for 2days, 2 tabs for 2 days 1 tab for 2 days Continue other respiratory meds listed , Resume prednisone 5 mg once done with current prednisone taper Follow Up: Return if symptoms worsen or fail to improve. (This note was completed using the dictation [...] and agrees with plan of care. Hoa Tom MD 10/22/2023 documented in this encounter Nursing Notes * Madhuri Pruett LPN - 10/22/2023 10:35 AM EDT Chief Complaint Patient presents with Short of Breath States he is having a hard time breathing and his pulse is elevated. O2 sat has been between 87%-90%. Also has a cough at times. This started yesterday. documented in this encounter Plan of Treatment Upcoming Encounters Date Type Department Care Team (Late st Contact Info) Description 11/25/2023 10:20 AM EDT Office [facility] [address] [facility] [place] [address] Enrico Mccauley MD [address] [place] [address] 02/07/2024 10:35 AM EDT Cardiac Studies Cardiac Studies, [facility] [address] [facility] [place] [address] Scheduled Procedures Name Priority Associated Diagnoses Date/Ti [...] encounter Visit Diagnoses Diagnosis Severe persistent asthma with acute exacerbation- Primary Unspecified asthma, with exacerbation Shortness of breath Bronchiectasis with acute exacerbation (HCC) Bronchiectasis with acute exacerbation documented in this encounter Care Teams It Project Manager Relationship Specialty Start Date End Date Enrico Mccauley MD [address] [place] [address] PCP - General Family Medicine 08/19/19 documented as of this encounter"
--- OUTSIDE RECORDS SUMMARY | 2023-12-29 21:37 | External Medical Summary | Summary of Care ---
Author Name Unknown Organization [facility] Address [address] [address] Phone [phone] Care Team Providers Care Systems Navigator Name Role Phone Shana Hamlin MD Primary Care Provider [phone] [phone] Reason for Visit * Reason Comments eRx-Medication Refill Encounter Details Date Type Department Care Team (Late st Contact Info) Description 10/31/2023 Refill Family Practice [facility] [address] [facility] [place] [address] Shana Hamlin MD 132 [facility] [place] [address] Allergies Active Allergy Reactions Criticality Noted Date Comments Gianluca Inhibitors Cough 06/12/2016 Cat Dander 03/31/2020 Ragweed 02/16/2020 Per patient's he is allergic to all weeds, trees, grasses documented as of this encounter (statuses as of 11/01/2023) Medications Medication Sig Dispensed Refills Start Date End Date Status ASPIRIN 81 MG PO TABS one tablet daily 0 Active Blood Glucose Monitoring Suppl (MyWeddingUCH ULTRA SYSTEM) W/DEVICE KITIndications:Type 2 diabetes mellitus with hemoglobin A1c goal of less than 7.5% ([facility]) Use as directed 2 times a day. E11.9 1 Kit 0 6 Active Azelastine HCl 0.1 % nasal spray Administer 1 [place] into nostril 2 times a day. 30 [...] hemoglobin A1c goal of less than 8.0% ([facility]) Use up to four times daily [...] hemoglobin A1c goal of less than 7.5% ([facility]) USE DIRECTED TWICE DAILY. USE UP TO FOUR TIMES A DAY DIRECTED. 100 Each 10 3 Active Levalbuterol HCl 1.25 MG/3ML Inhalation Nebulization Solution (Xopenex) 0 3 Active Ipratropium [place] 0.02 % Inhalation Solution (Atrovent) 2.5 [...] morning. 30 Tablet 5 4 Active Tiotropium [place] Monohydrate 18 MCG Inhalation Capsule (Spiriva)Indication s:Severe [...] before bedtime 240 mL 1 4 Active Cefdinir 300 MG Oral Capsule (Omnicef)Indication s:Severe persistent asthma with acute exacerbation,Shortn ess of breath,Bronchiectas is with acute exacerbation (HCC) Take 1 Capsule by mouth in the morning and 1 Capsule before bedtime. Do all this for 10 days. For 10 days.. 20 Capsule 0 4 11/01/19 24 Active predniSONE 10 MG Oral [...] 90 Tablet 0 4 11/01/19 24 Discontinued Hospital, Clinic, or Other Facility Administered Medication Ordered Dose Route Frequency Start Date End Date Status omalizumab (XOLAIR) inj 150 mgIndications:Poorly controlled severe persistent asthma with acute exacerbation 150 mg SC [id number] 05/13/2020 Active omalizumab (XOLAIR) inj 150 mgIndications:Poorly controlled severe persistent asthma with acute exacerbation 150 mg SC [id number] 05/13/2020 Active documented as of this encounter [...] Description 11/06/2023 9:00 AM EDT Laboratory Laboratory, [facility] [address] [facility] [place] [id number] Isha Gonsalez [facility] [address] [facility] [place] [address] 11/25/2023 10:20 AM EDT Office Visit Family Practice [facility] [address] [place] [address] Shana Hamlin MD [address] [facility] [place] [address] 02/07/2024 10:35 AM EDT Cardiac Studies Cardiac Studies, [facility] [address] [facility] [place] [address] Scheduled Procedures Name Priority Associated Diagnoses Date/Ti [...] filedocumented as of this encounter Care Teams Systems Navigator Relationship Specialty Start Date End Date Shana Hamlin MD [address] [place] [address] PCP - General Family Medicine 08/19/19 documented as of this encounter
--- OUTSIDE RECORDS SUMMARY | 2023-12-29 21:37 | External Medical Summary | Summary of Care ---
Author Name Unknown Organization [facility] Address [address] [facility] [address] Phone [phone] Care Team Providers Care Manufacturing Assistant Name Role Phone Enrico Mccauley MD Primary Care Provider [phone] [phone] Encounter Details Date Type Department Care Team (Late st Contact Info) Description 10/04/2023 10:00 AM EST Nurse Only Pulmonary Medicine, [facility] 132 [facility] [place] [address] Gw, Nurse Pulmonary 132 [facility] [place] [address] Arrived Allergies Active Allergy Reactions Criticality Noted Date Comments Gianluca Inhibitors Cough 06/12/2016 Cat Dander 03/31/2020 Ragweed 02/16/2020 Per patient's he is allergic to all weeds, trees, grasses documented as of this encounter (statuses as of 10/04/2023) Medications Medication Sig Dispensed Refills Start Date End Date Status ASPIRIN 81 MG PO TABS one tablet daily 0 Active Blood Glucose Monitoring Suppl (TipTapUCH ULTRA SYSTEM) W/DEVICE KITIndications:Type 2 diabetes mellitus with hemoglobin A1c goal of less than 7.5% (HCC) Use as directed 2 times a day. E11.9 1 Kit 0 07/27/2016 Active Azelastine HCl 0.1 % nasal spray Administer 1 [place] into nostril 2 times a day. 30 [...] goal of less than 7.5% ([facility]) USE DIRECTED TWICE DAILY. USE UP TO FOUR TIMES A DAY DIRECTED. 100 Each 10 07/11/2023 Active Sodium Chloride 3 % Inhalation Nebulization Solution Inhale 4ml via nebulizer in the morning and 4ml before bedtime 240 mL 1 07/22/2023 Active Levalbuterol HCl 1.25 MG/3ML Inhalation Nebulization Solution (Xopenex) 0 07/28/2023 Active Ipratropium [place] 0.02 % Inhalation Solution (Atrovent) 2.5 mL. [...] 20 Tablet 0 09/27/2023 4 Active Tiotropium [place] Monohydrate 18 MCG Inhalation Capsule (Spiriva)Indications :Severe [...] asthma with acute exacerbation 150 mg SC [id number] 05/13/2020 Active omalizumab (XOLAIR) inj 150 mgIndications:Poorly controlled severe persistent asthma with acute exacerbation 150 mg SC [id number] 05/13/2020 Active documented as of this encounter (statuses as of 10/04/2023) Active Problems Problem Noted Date Diagnosed Date [...] as of this encounter (statuses as of 10/04/2023) Resolved Problems Problem Noted Date Diagnosed Date [...] as of this encounter (statuses as of 10/04/2023) Immunizations Name Administration Dates Next Due COVID-19 [...] Taken Comments Blood Pressure - - Pulse 87 10/04/2023 10:02 AM EST Temperature - - Respiratory Rate 16 10/04/2023 10:02 AM EST Oxygen Saturation 93% 10/04/2023 10:02 AM EST Inhaled Oxygen Concentration - - Weight - - Height - - Body Mass Index - - documented in this encounter Plan of Treatment Upcoming Encounters Date Type Department Care Team (Late st Contact Info) Description 11/25/2023 10:20 AM EDT Office Visit Family Practice [facility] [address] [place] [address] Enrico Mccauley MD [address] [place] [address] 02/07/2024 10:35 AM EDT Cardiac Studies Cardiac Studies, [facility] [address] [place] [address] Scheduled Procedures Name Priority Associated Diagnoses Date/Ti [...] 02/19/2022 02/19/2017, 12/15/2013, 12/15/2013 GFR 05/29/2023 05/29/2022, 08/2 09/2020, 12/14/2019, Additional history exists Diabetic Foot Exam 07/10/2023 07/10/2022, 0 04/15/2020, 03/23/2019, Additional history exists Albumin/Creatinine Ratio 07/13/2023 022, 01/21/2018, 07/05/2016, Additional history exists HbA1c 11/23/2023 05/24/2023, 2 12/2022, 07/13/2022, Additional history exists TSH 05/24/2024 [...] (XOLAIR) inj 150 mg 150 mg, Subcutaneous, [id number], First dose on Sat05/13/20 at 1315, Until Discontinued, TOTAL DOSE = 150 mg Given 10/04/2023 10:06 AM EST 150 mg Arm Right Upper Given 09/04/2023 9:11 AM EST 150 mg Ar m Right Upper Given 05/24/2023 9:53 AM EDT 150 mg De ltoid Left Upper omalizumab (XOLAIR) inj 150 mg 150 mg, Subcutaneous, [id number], First dose on Sat05/13/20 at 1315, Until Discontinued, TOTAL DOSE = 150 mg Given 10/04/2023 10:05 AM EST 150 mg Arm Left Upper Given 09/04/2023 9:10 AM EST 150 mg Ar m Left Upper Given 05/24/2023 9:54 AM EDT 150 mg De ltoid Right Upper documented in this encounter Care Teams Manufacturing Assistant Relationship Specialty Start Date End Date Enrico Mccauley MD [address] [place] [address] PCP - General Family Medicine 08/19/19 documented as of this encounter
--- OUTSIDE RECORDS SUMMARY | 2023-12-29 21:37 | External Medical Summary ---
Author Name Unknown Address Unknown Organization K01:[facility]ORY [facility] - [address] [place] [address] Laboratory Report Ordering Provider Test Date Status ELLA EARLUS 10/21/2023 10:26:37 Final Observation Date Value Abnormality Reference (Units ) Status LDL, (direct) 10/21/2023 10:26:37 58 <=129 (mg/dL) Final LDL Cholesterol Reference Ra nges (mg/dL):
<70 Target level for high risk ASCVD patient
<100 Optimal for general population
100-129 Near optimal for general population
130-159 Borderline high
160-189 High
>=190 Very high Performing Location [facility] [address] [facility] [address]
--- OUTSIDE RECORDS SUMMARY | 2023-12-29 21:37 | External Medical Summary ---
Author Name Unknown Address Unknown Organization [id number]:[facility] [place] [address] [place] [address] Laboratory Report Ordering Provider Test Date Status CHAIM RUBIO 10/21/2023 10:26:37 Final Observation Date Value Abnormality Reference (Units ) Status Vitamin B12 10/21/2023 10:26:37 >2000 Above high normal 232-1245 (pg/mL) Final Performing Location LABORATORY [facility] - [address] [place] [address]
--- OUTSIDE RECORDS SUMMARY | 2023-12-29 21:38 | External Medical Summary | Summary of Care ---
Author Name Unknown Organization [facility] Address [address] [facility] [address] Phone [phone] Care Team Providers Care Steel Turner Name Role Phone Enrico Mccauley MD Primary Care Provider [phone] Reason for Visit * Reason Comments Acute Patient presents in office today for ongoing concerns with cold symptoms since the beginning of the week.Patient has been having productive cough, slight SOB, chest congestion. Encounter Details Date Type Department Care Team (Late st Contact Info) Description 09/27/2023 11:20 AM EST Office Visit Family Practice [facility] 132 [facility] [place] [address] Asmita Munoz CRNP [facility] [address] Acute respiratory failure with hypoxia (HCC)*; Severe persistent asthma with acute exacerbation; Upper respiratory tract infection, unspecified type Allergies Active Allergy Reactions Criticality Noted Date Comments Gianluca Inhibitors Cough 06/12/2016 Cat Dander 03/31/2020 Ragweed 02/16/2020 Per patient's he is allergic to all weeds, trees, grasses documented as of this encounter (statuses as of 09/27/2023) Medications Medication Sig Dispensed Refills Start Date End Date Status ASPIRIN 81 MG PO TABS one tablet daily 0 Active Blood Glucose Monitoring Suppl (Cognitum SYSTEM) W/DEVICE KITIndications:Type 2 diabetes mellitus with hemoglobin A1c goal of less than 7.5% ([facility]) Use as directed 2 times a day. E11.9 1 Kit 0 07/27/2016 Active Azelastine HCl 0.1 % nasal spray Administer 1 [place] into nostril 2 times a day. 30 [...] goal of less than 8.0% ([facility]) Use up to four times daily to [...] DAY NEEDED. 360 mL 5 10/28/2022 Active Omeprazole 20 MG Oral Capsule Delayed [...] Nebulization Solution (Xopenex) 0 07/28/2023 Active Ipratropium [place] 0.02 % Inhalation Solution (Atrovent) 2.5 mL. [...] days. 20 Tablet 0 09/27/2023 4 Active Doxycycline Hyclate 100 MG Oral Capsule 1 Capsule. 0 07/28/2023 09/27/19 2 4 Discontinu ed(Medicat ion List Clean Up) Hospital, Clinic, or Other Facility Administered Medication Ordered Dose Route Frequency Start Date End Date Status omalizumab (XOLAIR) inj 150 mgIndications:Poorly controlled severe persistent asthma with acute exacerbation 150 mg SC [id number] 05/13/2020 Active omalizumab (XOLAIR) inj 150 mgIndications:Poorly controlled severe persistent asthma with acute exacerbation 150 mg SC [id number] 05/13/2020 Active documented as of this encounter (statuses as of 09/27/2023) Active Problems Problem Noted Date Diagnosed Date [...] as of this encounter (statuses as of 09/27/2023) Resolved Problems Problem Noted Date Diagnosed Date [...] as of this encounter (statuses as of 09/27/2023) Immunizations Name Administration Dates Next Due COVID-19 [...] Reading Time Taken Comments Blood Pressure 138/80 09/27/2023 11:19 AM EST Pulse 97 09/27/2023 11:19 AM EST Temperature - - Respiratory Rate 20 09/27/2023 11:19 AM EST Oxygen Saturation 95% 09/27/2023 11:19 AM EST Inhaled Oxygen Concentration - - Weight - - Height 157.5 cm (5' 2") 09/27/2023 11:19 AM EST Body Mass Index - - documented in this encounter Progress Notes * Asmita Munoz CRNP - 09/27/2023 11:25 AM EST URI Family Medicine Visit CC: Chief Complaint Patient presents with Acute Patient presents in office today for ongoing concerns with cold symptoms since the beginning of theweek. Patient has been having productive cough, slight SOB, chest congestion. History of Present Illness: Alcides Sebastian is a 78 year old male presenting today for increased URI symptoms. Feels sob with more thatn baseline. Denies chest pain. Seen by pulm 2 weeks ago. Using albuterol neb and duoneb 4 times total. Using mucinex 2 times per day. He stopped arnuity a few weeks ago. -fever, t max - -chills -sweats -decreased appetite +tolerating fluids -congestion -loss of taste or smell -runny nose -PND -ear pain -sore throat -blurred vision -eye discharge +cough +productive of mucous +sob increased with exertion +wheezing -nausea -diarrhea -constipation -vomiting -body aches -Rash -Sleep disruption +headache Social History Socioeconomic History Marital status: Spouse name: Not on file Number of children: Not on file Years of education: Not on file Highest education level: Not on file Occupational History Not on file Tobacco Use Smoking status: Never Smokeless tobacco: Never Vaping Use Vaping Use: Never used Substance and Sexual Activity Alcohol use: No Drug use: No Sexual activity: Yes Partners: Female Other Topics Concern Not on file Social History Narrative 1 dog in his home. No mold. Social Determinants of Health Financial Resource Strain: Not on file Food Insecurity: No Food Insecurity (07/14/2019) Hunger Vital Sign Worried About Running Out of Food in the Last Year: Never true Ran Out of Food in the Last Year: Never true Transportation Needs: Not on file Physical Activity: Not on file Stress: Not on file Social Connections: Not on file Intimate Partner Violence: Not on file Housing Stability: Not on file PMH: Past Medical History: Diagnosis Date Allergic rhinitis Asthma Asthma, allergic Asthma, moderate persistent Asthma, severe persistent, poorly-controlled Benign neoplasm of colon 12/15/2013 adenomatous polyps, repeat 3 yrs Benign prostatic hypertrophy with lower urinary tract symptoms (LUTS) Chronic heart failure with preserved ejection fraction (HCC) 02/05/2022 DM type 2 goal A1C below 7.5 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 Esophagitis, unspecified House dust mite allergy 12/21/2020 HTN, goal to be determined Migraine variant 02/17/2020 Mild aortic stenosis 05/31/2020 Obesity, Class I, BMI 30.0-34.9 (see actual BMI) 02/05/2022 Sleep apnea, obstructive Past Surgical History: Procedure Laterality Date COLONOSCOPY, DIAGNOSTIC (RECTUM) 12/15/2013 adenomatous polyps, repeat 3 yrs/COLONOSCOPY FLEXIBLE PROXIMAL DIAGNOSTIC performed by Garett Gomez MD at [facility] COLONOSCOPY, DIAGNOSTIC (RECTUM) 02/19/2017 adenomatous polyp, diverticulosis, repeat 5 yrs/[facility] REMOVAL OF TONSILS, UNDER AGE 13 Outpatient Medications Marked as Taking for the 09/27/23 encounter (Office Visit) with Asmita Munoz CRNP Medication Sig Metoprolol Succinate ER 25 MG Oral Tablet Extended Release 24 Hour (toPROL XL) Take 0.5 Tablets by mouth in the morning. Atorvastatin Calcium 20 MG Oral Tablet (Lipitor) Take 1 Tablet by mouth in the morning. Losartan Potassium 25 MG Oral Tablet (Cozaar) Take 1 Tablet by mouth in the morning. Xolair 150 MG/ML Subcutaneous Solution Prefilled Syringe (Omalizumab) INJECT 2 SYRINGES UNDER THE SKIN EVERY 4 WEEKS Doxazosin Mesylate 2 MG Oral Tablet (Cardura) TAKE ONE TABLET BY MOUTH ONE TIME DAILY IN THE EVENING Levothyroxine Sodium 100 MCG Oral Tablet (Levoxyl) TAKE 1 TABLET BY MOUTH EVERY MORNING (at least 30 minutes prior to breakfast or other meds) amLODIPine Besylate 5 MG Oral Tablet (Norvasc) TAKE 1 TABLET BY MOUTH EVERY MORNING Breo Ellipta 200-25 MCG/ACT Inhalation Aerosol Powder Breath Activated (fluticasone furoate-vilanterol) INHALE 1 PUFF BY MOUTH EVERY MORNING predniSONE 5 MG Oral Tablet (Deltasone) TAKE ONE TABLET BY MOUTH IN THE MORNING Ipratropium [place] 0.02 % Inhalation Solution (Atrovent) 2.5 mL. Levalbuterol HCl 1.25 MG/3ML Inhalation Nebulization Solution (Xopenex) Sodium Chloride 3 % Inhalation Nebulization Solution Inhale 4ml via nebulizer in the morning and 4ml before bedtime [employer] Lancets 33G USE DIRECTED TWICE DAILY. USE UP TO FOUR TIMES A DAY DIRECTED. Mometasone Furoate 50 MCG/ACT Nasal Suspension administer 2 sprays into each nostril daily glipiZIDE 5 MG Oral Tablet (Glucotrol) TAKE 1 TABLET BY MOUTH TWICE DAILY 30 minutes before a meal Montelukast Sodium 10 MG Oral Tablet (Singulair) Take 1 Tablet by mouth in the morning. Benzonatate 200 MG Oral Capsule Arnuity Ellipta 100 MCG/ACT Inhalation Aerosol Powder Breath Activated (fluticasone Furoate) inhale1 puff by mouth once daily - rinse mouth after use Omeprazole 20 MG Oral Capsule Delayed Release (PriLOSEC) TAKE 1 CAPSULE BY MOUTH TWICE DAILY 30 MINUTES BEFORE A MEAL Ipratropium-Albuterol 0.5-2.5 (3) MG/3ML Inhalation Solution (Duoneb) INHALE THE CONTENTS OF ONE VIAL (3 ML) VIA NEBULIZER FOUR TIMES A DAY NEEDED. Albuterol Sulfate HFA 108 (90 Base) MCG/ACT Inhalation Aerosol Solution Inhale 2 Puffs by mouth every 4 hours as needed for Wheezing. Spiriva HandiHaler 18 MCG Inhalation Capsule (tiotropium bromide) INHALE ONE CAPSULE VIA HANDIHALERONE TIME DAILY , DO NOT SWALLOW [employer] Glucose Meter Test Strips In Vitro Strip (Glucose Blood) Use up to four times daily to check blood glucose Vitamin B-12 1000 MCG Oral Tablet TAKE 1 TABLET BY MOUTH ONCE DAILY SUMAtriptan Succinate 25 MG Oral Tablet (Imitrex) take 2 tablets by mouth at onset of migraine, and1 tablet every 2 hours if needed; not more than 5 tablets in 24 hours Nitroglycerin 0.4 MG Sublingual Tablet Sublingual (Nitrostat) Place 1 Tab under the tongue every 5 minutes as needed for Pain, Chest. up to 3 doses in 15 minutes cetirizine (ZYRTEC) 10 MG Tablet Take 1 Tab by mouth daily. Tadalafil (CIALIS) 20 MG Tablet Take 1 Tab by mouth daily as needed for Erectile Dysfunction. Priorto intercourse, no more than 1 dose in 24 hours. Azelastine HCl 0.1 % nasal spray Administer 1 [place] into nostril 2 times a day. Blood Glucose Monitoring Suppl (Cognitum SYSTEM) W/DEVICE KIT Use as directed 2 times a day. E11.9 ASPIRIN 81 MG PO TABS one tablet daily Current Facility-Administered Medications for the 09/27/23 encounter (Office Visit) with Nicole Munoz CRNP Medication omalizumab (XOLAIR) inj 150 mg omalizumab (XOLAIR) inj 150 mg Review of patient's allergies indicates: Allergen Reactions Gianluca Inhibitors Cough Cats [Cat Dander] Environmental [Ragweed] Per patient's he is allergic to all weeds, trees, grasses Most Recent Immunizations Administered Date(s) Administered COVID-19 mRNA, LNP-s, No Preserve, 2-Dose Series (Moderna) 11/08/2020 Pneumococcal Conjugate Vacc, 13 Valent (Prevnar) 08/17/2014 Pneumococcal Polysaccharide PPV23 (Pneumovax) 10/12/2011 RSV Vac., Bivalent, Perfusion F, Pf,0.5 Ml (Abrysvo) 05/24/2023 Season Influenza, Quad, PF, Adjuvanted, 65+ Yrs, IM (FLUAD) 05/09/2020 Seasonal Influenza, PF, 6 M & above, IM , (FluLaval or Fluzone) 05/06/2019 Seasonal Influenza, Quadrivalent Hd (Fluzone Hd) 05/24/2023 Seasonal Influenza, Quadrivalent, No Preserve, IM 05/09/2016 Seasonal Influenza, Split, IIV3, With Preserve, Inj 05/28/2014 TDAP (age 10 and older)(Boostrix) 02/06/2019 TDAP (age 11 and older)(Adacel) 03/04/2007 Varicella Zoster Vaccine (Adult) 04/18/2012 Physical Exam: BP 138/80 | Pulse 97 | Resp 20 | Ht 1.575 m (5' 2") | SpO2 95% | BMI 30.50 kg/m | BSA 1.82 m Physical Exam Constitutional: Comments: AMBULATES WITH CANE- WINDED TODAY- O2 sat 88% on RA with walking Tachy at 125 with exertion HENT: Head: Normocephalic. Right Ear: A middle ear effusion is present. Left Ear: A middle ear effusion is present. Cardiovascular: Rate and Rhythm: Tachycardia present. Pulmonary: Breath sounds: Examination of the right-lower field reveals rales. Decreased breath sounds, wheezing, rhonchi and rales present. Neurological: Mental Status: He is alert. Assessment and Plan: 1. Acute respiratory failure with hypoxia (HCC) Desats to 88% on ra with exertion- he requires no oxygen at baseline Pulse up to 124 with exertion 2. Severe persistent asthma with acute exacerbation Acute on chronic Patient initially declines ED eval but is agreeable after discussing with his family. sUSPECT RLL pneumonia - INFLUENZA A/B RSV SARS-COV2,PCR; Future - XR CHEST 2 VIEWS - CBC WITH WBC DIFFERENTIAL; Future 3. Upper respiratory tract infection, unspecified type - INFLUENZA A/B RSV SARS-COV2,PCR; Future I have advised the patient to call our office incase of any worsening or new symptoms. I spent a total of 40-54 minutes (exact time 40 mins) on the date of service in preparation, delivery, and documentation of the care provided to Alcides Sebastian excluding any time spent in the performance of separately billed services. Larry, FERNANDO, MARIA GUADALUPE [facility] Medicine documented in this encounter Nursing Notes * Ghada Betancourt MED ASSIST - 09/27/2023 11:17 AM EST The patient has been properly identified by confirmation of name and date of . Chief Complaint Patient presents with Acute Patient presents in office today for ongoing concerns with cold symptoms since the beginning of theweek. Patient has been having productive cough, slight SOB, chest congestion. documented in this encounter Plan of Treatment Upcoming Encounters Date Type Department Care Team (Late st Contact Info) Description 11/25/2023 10:20 AM EDT Office Visit Family Practice [facility] [address] [place] [address] Enrico Mcaculey MD [address] [place] [address] 02/07/2024 10:35 AM EDT Cardiac Studies Cardiac Studies, [facility] [address] [place] [address] Scheduled Procedures Name Priority Associated Diagnoses Date/Ti [...] as of this encounter Visit Diagnoses Diagnosis Acute respiratory failure with hypoxia (HCC)- Primary Acute respiratory failure Severe persistent asthma with acute exacerbation Unspecified asthma, with exacerbation Upper respiratory tract infection, unspecified type documented in this encounter Care Teams Steel Turner Relationship Specialty Start Date End Date Enrico Mccauley MD [address] [address] PCP - General Family Medicine 08/19/19 documented as of this encounter
--- OUTSIDE RECORDS SUMMARY | 2023-12-29 21:38 | External Medical Summary | Summary of Care ---
Author Name Unknown Organization [facility] Address [address] [place] [address] Phone [phone] Care Team Providers Care Grinder Dresser Name Role Phone Enrico Mccauley MD Primary Care Provider [phone] [phone] Reason for Visit * Reason Onset Date Comments MyCode Nonconsent - Not interested at this time 09/27/2023 Encounter Details Date Type Department Care Team (Late st Contact Info) Description 09/27/2023 Orders Only Outcomes Research Department [address] [place] [address] Karlie Zapata CHRA MyCode Nonconsent Documentation Allergies Active Allergy Reactions Criticality Noted Date Comments Gianluca Inhibitors Cough 06/12/2016 Cat Dander 03/31/2020 Ragweed 02/16/2020 Per patient's he is allergic to all weeds, trees, grasses documented as of this encounter (statuses as of 09/27/2023) Medications Medication Sig Dispensed Refills Start Date End Date Status ASPIRIN 81 MG PO TABS one tablet daily 0 Active Blood Glucose Monitoring Suppl (Leikr ULTRA SYSTEM) W/DEVICE KITIndications:Type 2 diabetes mellitus with hemoglobin A1c goal of less than 7.5% ([facility]) Use as directed 2 times a day. E11.9 1 Kit 0 07/27/2016 Active Azelastine HCl 0.1 % nasal spray Administer 1 [place] into nostril 2 times a day. 30 [...] goal of less than 8.0% ([facility]) Use up to four times daily [...] goal of less than 7.5% ([facility]) USE DIRECTED TWICE DAILY. USE UP TO FOUR TIMES A DAY DIRECTED. 100 Each 10 07/11/2023 Active Sodium Chloride 3 % Inhalation Nebulization Solution Inhale 4ml via nebulizer in the morning and 4ml before bedtime 240 mL 1 07/22/2023 Active Levalbuterol HCl 1.25 MG/3ML Inhalation Nebulization Solution (Xopenex) 0 07/28/2023 Active Ipratropium [place] 0.02 % Inhalation Solution (Atrovent) 2.5 mL. [...] the morning. 30 Tablet 5 09/17/2023 Active Doxycycline Hyclate 100 MG Oral Capsule 1 Capsule. 0 07/28/2023 09/27/19 2 4 Discontinu ed(Medicat ion List Clean Up) Hospital, Clinic, or Other Facility Administered Medication Ordered Dose Route Frequency Start Date End Date Status omalizumab (XOLAIR) inj 150 mgIndications:Poorly controlled severe persistent asthma with acute exacerbation 150 mg SC [id number] 05/13/2020 Active omalizumab (XOLAIR) inj 150 mgIndications:Poorly controlled severe persistent asthma with acute exacerbation 150 mg SC [id number] 05/13/2020 Active documented as of this encounter [...] on file documented as of this encounter Progress Notes * Karlie Zapata CHRA - 09/27/2023 11:18 AM EST MyCode Nonconsent Documentation Alcides Sebastian was approached in the clinic regarding participation in the MyCode Project anddid not consent. documented in this encounter Plan of Treatment Upcoming Encounters Date Type Department Care Team (Late st Contact Info) Description 11/25/2023 10:20 AM EDT Office Visit Family Practice [facility] [address] [place] [address] Enrico Mccauley MD [address] [place] [address] 02/07/2024 10:35 AM EDT Cardiac Studies Cardiac Studies, [facility] [address] [place] [address] Scheduled Procedures Name Priority Associated Diagnoses Date/Ti [...] filedocumented as of this encounter Care Teams Grinder Dresser Relationship Specialty Start Date End Date Enrico Mccauley MD [address] [place] [address] PCP - General Family Medicine 08/19/19 documented as of this encounter
--- OUTSIDE RECORDS SUMMARY | 2023-12-29 21:38 | External Medical Summary | Summary of Care ---
Author Name Unknown Organization [facility] [address] [facility] [address] Phone [phone] Care Team Providers Care Voice Coach Name Role Phone Enrico Mccauley MD Primary Care Provider [phone] Reason for Visit * Reason Comments eRx-Medication Refill Encounter Details Date Type Department Care Team (Late st Contact Info) Description 10/01/2023 Refill Family Practice [facility] [address] [facility] [place] [address] Enrico Mccauley MD [address] [facility] [place] [address] Allergies Active Allergy Reactions Criticality Noted Date Comments Gianluca Inhibitors Cough 06/12/2016 Cat Dander 03/31/2020 Ragweed 02/16/2020 Per patient's he is allergic to all weeds, trees, grasses documented as of this encounter (statuses as of 10/02/2023) Medications Medication Sig Dispensed Refills Start Date End Date Status ASPIRIN 81 MG PO TABS one tablet daily 0 Active Blood Glucose Monitoring Suppl (School Places[employer]CH ULTRA SYSTEM) W/DEVICE KITIndications:Type 2 diabetes mellitus with hemoglobin A1c goal of less than 7.5% ([facility]) Use as directed 2 times a day. E11.9 1 Kit 0 07/27/2016 Active Azelastine HCl 0.1 % nasal spray Administer 1 [place] into nostril 2 times a day. 30 [...] goal of less than 8.0% ([facility]) Use up to four times [...] goal of less than 7.5% ([facility]) USE DIRECTED TWICE DAILY. USE UP TO FOUR TIMES A DAY DIRECTED. 100 Each 10 07/11/2023 Active Sodium Chloride 3 % Inhalation Nebulization Solution Inhale 4ml via nebulizer in the morning and 4ml before bedtime 240 mL 1 07/22/2023 Active Levalbuterol HCl 1.25 MG/3ML Inhalation Nebulization Solution (Xopenex) 0 07/28/2023 Active Ipratropium [place] 0.02 % Inhalation Solution (Atrovent) 2.5 mL. [...] 20 Tablet 0 09/27/2023 4 Active Tiotropium [place] Monohydrate 18 MCG Inhalation Capsule (Spiriva)Indications :Severe [...] asthma with acute exacerbation 150 mg SC [id number] 05/13/2020 Active omalizumab (XOLAIR) inj 150 mgIndications:Poorly controlled severe persistent asthma with acute exacerbation 150 mg SC [id number] 05/13/2020 Active documented as of this encounter (statuses as of 10/02/2023) Active Problems Problem Noted Date Diagnosed Date [...] as of this encounter (statuses as of 10/02/2023) Resolved Problems Problem Noted Date Diagnosed Date [...] as of this encounter (statuses as of 10/02/2023) Immunizations Name Administration Dates Next Due COVID-19 [...] Miscellaneous Notes * Telephone Encounter - Joanne Rucker [facility] - 10/02/2023 1:55 PM EST Refused Prescriptions: Disp Refills Omeprazole 20 MG Oral Capsule Delayed Rele*180 Ca*0 Sig: TAKE 1CAPSULE BY MOUTH TWICE DAILY 30 MINUTES BEFORE A MEALRefused By: JOANNE RUCKER for Refusal: Duplicate Request documented in this encounter Plan of Treatment Upcoming Encounters Date Type Department Care Team (Late st Contact Info) Description 11/25/2023 10:20 AM EDT Office Visit Family Practice [facility] [address] [place] [address] Enrico Mccauley MD [address] [place] [address] 02/07/2024 10:35 AM EDT Cardiac Studies Cardiac Studies, [facility] [address] [place] [address] Scheduled Procedures Name Priority Associated Diagnoses Date/Ti [...] filedocumented as of this encounter Care Teams Voice Coach Relationship Specialty Start Date End Date Enrico Mccauley MD [address] [place] [address] PCP - General Family Medicine 08/19/19 documented as of this encounter
--- OUTSIDE RECORDS SUMMARY | 2023-12-29 21:38 | External Medical Summary | Summary of Care ---
Author Name Unknown Organization [facility] Address [address] [facility] [place] [address] Phone [phone] Care Team Providers Care Preschool Director Name Role Phone Shana Hamlin MD Primary Care Provider [phone] [phone] Reason for Visit * Reason Onset Date Comments Medication Refill 10/01/2023 Encounter Details Date Type Department Care Team (Late st Contact Info) Description 10/01/2023 Refill Family Practice [facility] [address] [place] [address] Shana Hamlin MD [address] [place] [address] Encounter for long-term (current) use of medications* [...] daily 0 Active Blood Glucose Monitoring Suppl (nap- Naturally Attached Parents ULTRA SYSTEM) W/DEVICE KITIndications:Type 2 diabetes mellitus with hemoglobin A1c goal of less than 7.5% ([facility]) Use as directed 2 times a day. E11.9 1 Kit 0 07/27/2016 Active Azelastine HCl 0.1 % nasal spray Administer 1 [place] into nostril 2 times a day. 30 [...] hemoglobin A1c goal of less than 8.0% ([facility]) Use up to four times daily [...] hemoglobin A1c goal of less than 7.5% ([facility]) USE DIRECTED TWICE DAILY. USE UP TO FOUR TIMES A DAY DIRECTED. 100 Each 10 07/11/2023 Active Sodium Chloride 3 % Inhalation Nebulization Solution Inhale 4ml via nebulizer in the morning and 4ml before bedtime 240 mL 1 07/22/2023 Active Levalbuterol HCl 1.25 MG/3ML Inhalation Nebulization Solution (Xopenex) 0 07/28/2023 Active Ipratropium [place] 0.02 % Inhalation Solution (Atrovent) 2.5 mL. 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 DO NOT SWALLOW 30 Capsule 0 10/01/2023 Active Omeprazole 20 MG Oral Capsule Delayed Release (PriLOSEC) TAKE 1 CAPSULE BY MOUTH TWICE DAILY 30 MINUTES BEFORE A MEAL 180 Capsule 1 10/02/2023 Active Omeprazole 20 MG Oral Capsule Delayed Release (PriLOSEC) TAKE 1 CAPSULE BY MOUTH TWICE DAILY 30 MINUTES BEFORE A MEAL 180 Capsule 1 02/20/2023 4 Discontinu ed(Refill) Hospital, Clinic, or Other Facility Administered Medication Ordered Dose Route Frequency Start Date End Date Status omalizumab (XOLAIR) inj 150 mgIndications:Poorly controlled severe persistent asthma with acute exacerbation 150 mg SC [id number] 05/13/2020 Active omalizumab (XOLAIR) inj 150 mgIndications:Poorly controlled severe persistent asthma with acute exacerbation 150 mg SC [id number] 05/13/2020 Active documented as of this encounter [...] 12/21/2020 02/05/2022 House dust mite allergy 12/21/2020 04/2 12/2022 FREDERICK (dyspnea on exertion) 05/09/2020 Diastolic dysfunction [...] Notes * Telephone Encounter - Joanne Rucker RPh - 10/02/2023 1:55 PM EST Signed Prescriptions: Disp Refills Omeprazole 20 MG Oral Capsule Delayed Rele*180 Ca*1 Sig: TAKE 1 CAPSULE BY MOUTH TWICE DAILY 30 MINUTES BEFORE A MEALAuthorizing Provider: SHANA HAMLIN User: JOANNE RUCKER * Telephone Encounter - Joanne Rucker RPh - 10/02/2023 1:53 PM EST Per refill protocol patient needs magnesium and vitamin B-12 labs on file within the past 2 years while using PPIs. Lab work ordered. Patient may obtain with next routine labs. Thank you, Chandrakant HatfieldD, CINDI Clinical Pharmacist [facility] ([facility]) (formerly Telepharmacy) 10/02/23 1:55 PM [phone] documented in this encounter Plan of Treatment Upcoming Encounters Date Type Department Care Team (Late st Contact Info) Description 11/25/2023 10:20 AM EDT Office Visit Family Practice [facility] [address] [place] [address] Shana Hamlin MD [address] [place] [address] 02/07/2024 10:35 AM EDT Cardiac Studies Cardiac Studies, [facility] [address] [place] [address] Scheduled Orders Name Type Priority Associated Diagnoses Orde r Schedule VITAMIN B12 Lab Routine Encounter for long-term (current) use of medications Expected: 10/16/2023 (Approximate), Expires: 10/01/2024 MAGNESIUM Lab Routine Encounter for long-term (current) use of medications Expected: 10/16/2023 (Approximate), Expires: 10/01/2024 Scheduled Procedures Name Priority Associated Diagnoses Date/Ti [...] medications documented in this encounter Care Teams Preschool Director Relationship Specialty Start Date End Date Shana Hamlin MD [address] [place] [address] PCP - General Family Medicine 08/19/19 documented as of this encounter
--- OUTSIDE RECORDS SUMMARY | 2023-12-29 21:38 | External Medical Summary | Summary of Care ---
Author Name Unknown Organization [facility] Address [address] [facility] [place] [address] Phone [phone] Care Team Providers Care Nailhead Setter Name Role Phone Enrico Mccauley MD Primary Care Provider [phone] [phone] Reason for Visit * Reason Comments eRx-Medication Refill Encounter Details Date Type Department Care Team (Late st Contact Info) Description 09/27/2023 Refill Pulmonary Medicine, 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 E11.9 1 Kit 0 6 Active Azelastine HCl 0.1 % nasal spray Administer 1 [place] into nostril 2 times a day. 30 [...] blood glucose 200 Strip 3 3 Active Albuterol Sulfate HFA 108 (90 [...] DAY NEEDED. 360 mL 5 3 Active Omeprazole 20 MG Oral Capsule [...] DAY DIRECTED. 100 Each 10 3 Active Sodium Chloride 3 % Inhalation Nebulization Solution Inhale 4ml via nebulizer in the morning and 4ml before bedtime 240 mL 1 3 Active Levalbuterol HCl 1.25 MG/3ML Inhalation Nebulization Solution (Xopenex) 0 3 Active Ipratropium [place] 0.02 % Inhalation Solution (Atrovent) 2.5 mL. 0 3 Active predniSONE 5 MG Oral Tablet (Deltasone) TAKE ONE TABLET BY MOUTH IN THE MORNING 90 Tablet 0 4 Active Breo Ellipta 200-25 MCG/ACT Inhalation Aerosol [...] the morning. 30 Tablet 5 4 Active predniSONE 20 MG Oral Tablet (Deltasone) Take 2 Tablets by mouth daily for 5 days, THEN 1 Tablet daily for 5 days. 15 Tablet 0 4 10/07/19 24 Active Doxycycline Hyclate 100 MG Oral Capsule Take 1 Capsule by mouth in the morning and 1 Capsule before bedtime. Do all this for 10 days. Until gone.. 20 Capsule 0 4 10/07/19 24 Active Amoxicillin-Pot Clavulanate 875-125 MG Oral Tablet (Augmentin) Take 1 Tablet by mouth in the morning and 1 Tablet before bedtime. Do all this for 10 days. 20 Tablet 0 4 10/07/19 24 Active Tiotropium [place] Monohydrate 18 MCG Inhalation Capsule (Spiriva)Indication s:Severe persistent asthma dependent on systemic steroids INHALE 1 CAPSULE BY MOUTH ONCE DAILY VIA HANDIHALER . DO NOT SWALLOW 30 Capsule 0 4 Active Spiriva [place]iHaler 18 MCG Inhalation Capsule (tiotropium bromide)Indications :Severe persistent asthma dependent on systemic steroids INHALE ONE CAPSULE VIA HANDIHALER ONE TIME DAILY , DO NOT SWALLOW 30 Capsule 11 3 10/01/19 24 Discontinued Hospital, Clinic, or Other Facility Administered Medication Ordered Dose Route Frequency Start Date End Date Status omalizumab (XOLAIR) inj 150 mgIndications:Poorly controlled severe persistent asthma with acute exacerbation 150 mg SC [id number] 05/13/2020 Active omalizumab (XOLAIR) inj 150 mgIndications:Poorly controlled severe persistent asthma with acute exacerbation 150 mg SC [id number] 05/13/2020 Active documented as of this encounter (statuses as of 10/01/2023) Active Problems Problem Noted Date Diagnosed Date [...] as of this encounter (statuses as of 10/01/2023) Resolved Problems Problem Noted Date Diagnosed Date [...] as of this encounter (statuses as of 10/01/2023) Immunizations Name Administration Dates Next Due COVID-19 [...] encounter Miscellaneous Notes * Telephone Encounter - Scot Kwon MD - 10/01/2023 4:34 PM EST Signed Prescriptions: Disp Refills Tiotropium [place] Monohydrate 18 MCG Inha*30 Cap*0 Sig: INHALE 1 CAPSULE BY MOUTH ONCE DAILY VIA HANDIHALER . DO NOT SWALLOW Authorizing Provider: SCOT KWON * Telephone Encounter - Interface, [facility] Inbound - 10/01/2023 3:19 PM EST Pending Prescriptions: Disp Refills Tiotropium [place] Monohydrate 18 MCG Inha*30 Cap*0 Sig: INHALE 1 CAPSULE BY MOUTH ONCE DAILY VIA HANDIHALER . DO NOT SWALLOW * Telephone Encounter - Kavitha Barbosa LPN - 10/01/2023 10:41 AM ESTPending Prescriptions: Disp Refills Tiotropium [place] Monohydrate 18 MCG Inha*30 Cap*0 Sig: INHALE 1 CAPSULE BY MOUTH ONCE DAILY VIA HANDIHALER . DO NOT SWALLOW * Telephone Encounter - Interface, E-Rx Ss Inbound - 09/29/2023 3:18 PM EST Pending Prescriptions: Disp Refills Tiotropium [place] Monohydrate 18 MCG Inha*30 Cap*0 Sig: INHALE1 CAPSULE BY MOUTH ONCE DAILY VIA HANDIHALER . DO NOT SWALLOW documented in this encounter Plan of Treatment Upcoming Encounters Date Type Department Care Team (Late st Contact Info) Description 11/25/2023 10:20 AM EDT Office Visit Family [facility] [address] [place] [address] Enrico Mccauley MD [address] [place] [address] 02/07/2024 10:35 AM EDT Cardiac Studies Cardiac Studies, [facility] [address] [facility] [place] [address] Scheduled Procedures Name Priority Associated Diagnoses Date/Ti [...] steroids documented in this encounter Care Teams Nailhead Setter Relationship Specialty Start Date End Date Enrico Mccauley MD [address] [facility] [place] [address] PCP - General Family Medicine 08/19/19 documented as of this encounter
--- NOTE | 2023-12-29 21:53 | Emergency Department Note ---
Impression & Plan Hypoxia Admission ED Provider Note HPI: History obtained from patient. The patient is a 78-year-old gentleman who presents the emergency department in respiratory distress. Patient has history of aortic stenosis, asthma, sleep apnea, type 2 diabetes, hypertension. Patient's family states that when they saw him earlier tonight at about 6 PM he was in his normal state of health. On arrival the patient is tachypneic with bilateral rhonchi. He was hypoxic on arrival at 82% was placed on oxygen mask with improvement to 93%. On my assessment the patient remains tachypneic with bilateral wheezing and rhonchi. Patient denies any chest pain, patient tells me his symptoms began about 1 hour ago. ROS: - Per HPI Differential Diagnosis: COPD exacerbation, pneumonia, viral upper respiratory infection, ARDS, pulmonary embolism, pulmonary edema, acute coronary syndrome, amongst other potential pathologies. *Outpatient medications and allergy history reviewed. PE: General: Alert, moderate respiratory distress noted HEENT: Normocephalic, trachea midline Eyes: Extraocular eye movement is intact, no scleral erythema Pulmonary: Rhonchi bilaterally with expiratory wheezing and tachypnea Cardio: Regular rate and rhythm GI: Abdomen is soft to palpation : No suprapubic tenderness MSK: No evidence of trauma or malformation of the extremities, no edema Skin: No evidence of rash Neuro: Alert, no focal deficits Psychiatric: Cooperative INDEPENDENT INTERPRETATIONS: manager monitoring: (As interpreted by myself): - An order was placed for continuous cardiac monitoring - Patient was noted to be in sinus tachycardia with a rate of 122 EKG: (As interpreted by myself): Rate: 139 Rhythm: Sinus tachycardia Intervals: Within normal limits ST changes: No ST elevation Time: 2154 Chest x-ray: (As interpreted by myself): Multifocal pneumonia pattern Interventions provided in ED: -IV fluid bolus, IV cefepime, high flow nasal cannula oxygen 60 L Medical Decision Making: IV was established and lab work obtained, respiratory therapy was consulted and the patient was placed on high flow nasal cannula oxygen at 60 L with good improvement in his work of breathing and oxygen saturation of 95%. Patient was given multiple DuoNeb breathing treatments with improvement in his rhonchi and wheezing. Lab work shows a leukocytosis of 15.82, hemoglobin is normal, platelet count is normal, CMP does not show any critical findings, troponin is negative, BNP is within normal limits. Chest x-ray per my interpretation shows bilateral pneumonia. CT angiography of the chest as well as CT abdomen and pelvis were ordered as the patient had an episode of dry heaving here in the ED. CT angiography of the chest does not show any evidence of pulmonary embolism but does show bilateral lower lobe consolidation consistent with pneumonia. Patient was given IV cefepime and IV azithromycin here in the ED. CT imaging of the abdomen pelvis does not show any acute abnormalities. On my reassessment the patient appears improved, he is saturating at 95% on high flow nasal cannula oxygen, blood pressure is stable, heart rate is in the 120s and appears to be in sinus tachycardia on the monitor. Patient was given a 500 cc bolus of normal saline and none further secondary to stable blood pressure and concern for fluid overload. His lactic acid is 3.0 however it did downtrend to within normal limits on repeat to 1.4. Patient was started on maintenance fluids at 125 mL an hour of normal saline. Viral panel testing was obtained, patient tested positive for influenza A. Patient did previously have this over the winter. I discussed the patient's presentation with the on-call hospitalist, Dr. Pagan, and he is in agreement for admission. I discussed this with the patient and his son at the bedside as well as his at the bedside and they are in agreement for admission. Patient was placed for admission in improved condition. Consultants/Discussions held with other healthcare providers: -Hospitalist, Dr. Pagan Disposition discussion held by myself with: -Patient, at bedside, son at bedside * CRITICAL CARE TIME: (43 minutes) -Stabilization of hypoxia at 82% on room air requiring high flow nasal cannula oxygen for improvement, time spent at the bedside, interpretation of diagnostic studies, discussion with family and arrangement of admission, discussion with other physicians and arrangement of admission Diagnosis: 1. Hypoxia, acute 2. Bilateral pneumonia, acute 3. Leukocytosis, acute 4. Lactic acidosis, acute 5. Influenza A PCR test positive 6. Acute bronchospasm Disposition: Admission Romero Raygoza DO Emergency Medicine Past Med/Surg History Problem List (Updated 12/30/23 @ 00:49 by Romero Raygoza DO) Hypoxia (Acute) Aortic stenosis, moderate Bronchiectasis Asthma exacerbation Shortness of breath (Acute) Influenza A (Acute) Acute hypoxic respiratory failure (Acute) Obstructive sleep apnea (adult) (pediatric) Encounter for pre-operative examination DM type 2 (diabetes mellitus, type 2) (Chronic) Hypothyroidism (Chronic) Dyslipidemia (Chronic) Asthma, moderate persistent (Chronic) Allergic rhinitis (Chronic) HTN (hypertension) (Chronic) BPH (benign prostatic hyperplasia) (Chronic) Gastroesophageal reflux disease (Acute) PHILLIP on CPAP Headache (Acute) Nausea & vomiting (Acute) Acute hyponatremia (Acute) Hypokalemia (Acute) Medical History Obstructive sleep apnea (adult) (pediatric) Asthma exacerbation Osteoarthritis Chronic back pain GERD (gastroesophageal reflux disease) Hypothyroidism Diabetes mellitus, type 2 NIDDM Chronic steroid use COPD Chronic headaches Hypertension Hyperlipidemia Pneumonia annually. last 11/2019. Asthma H. pylori infection hx Surgical History History of tooth extraction History of tonsillectomy History of shoulder surgery left History of colonoscopy Family History Mother Diabetes Father Diabetes Emphysema of lung Sister Diabetes Other No family history of adverse response to anesthesia Social History Smoking Status: Never smoker Second Hand Exposure: No; Do You Dip or Chew Tobacco: No; Hx Alcohol Use: No Hx Substance Use: No Preferred Language: Thai Communication Ability: Effective Director Compliance Required: No Beliefs That Will Affect Care: None marital status: Current Living Situation: Spouse current occupational status: retired Feels Safe at Home: Yes Assistive Devices: Cane, Denture - Upper and Walker Allergies Allergies Allergy/AdvReac Type Severity Reaction Status Date / Time cat dander Allergy Unknown watery eyes Verified 06/27/20 06:16 No Known Drug Allergies Allergy Unknown . Verified 06/27/20 06:16 SUJATHA Inhibitors AdvReac Mild Cough Verified 06/27/20 06:16 Home Meds Home Medications Medication Instructions Recorded Confirmed albuterol sulfate 90 mcg/actuation 2 puff inhalation Q4H PRN sob 07/25/23 07/25/23 aerosol inhaler amlodipine 5 mg tablet 5 mg PO DAILY 07/25/23 07/25/23 atorvastatin 20 mg tablet 20 mg PO DAILY 07/25/23 07/25/23 doxazosin 2 mg tablet 2 mg PO HS 07/25/23 07/25/23 fluticasone furoate 100 1 inh inhalation DAILY 07/25/23 07/25/23 mcg/actuation blister powder for inhalation (Arnuity Ellipta) fluticasone furoate 200 1 inh inhalation DAILY 07/25/23 07/25/23 mcg-vilanterol 25 mcg/dose inhalation powder (Breo Ellipta) glipizide 5 mg tablet 5 mg PO BID 07/25/23 07/25/23 ipratropium 0.5 mg-albuterol 3 mg 3 ml inhalation Q6H PRN Shortness 07/25/23 07/25/23 (2.5 mg base)/3 mL nebulization Of Breath Or Wheezing soln levothyroxine 100 mcg tablet 100 mcg PO DAILY 07/25/23 07/25/23 losartan 25 mg tablet 25 mg PO DAILY 07/25/23 07/25/23 mometasone 50 mcg/actuation nasal 2 spray intranasal DAILY 07/25/23 07/25/23 spray montelukast 10 mg tablet 10 mg PO HS 07/25/23 07/25/23 omeprazole 20 mg capsule,delayed 20 mg PO DAILY 07/25/23 07/25/23 release prednisone 5 mg tablet 5 mg PO DAILY 07/25/23 07/25/23 sodium chloride 3 % for 4 ml inhalation BID 07/25/23 07/25/23 nebulization tiotropium bromide 18 mcg capsule 18 mcg inhalation DAILY 07/25/23 07/25/23 with inhalation device Previous Rx's Medication Instructions Recorded aspirin 81 mg tablet,delayed 81 mg PO QAM 30 days #30 tabs 07/28/23 release ipratropium bromide 0.02 % 0.5 mg (2.5 mL) inhalation QIDR 7 07/28/23 solution for inhalation days #75 mL levalbuterol HCl 1.25 mg/3 mL 1.25 mg (3 mL) NEB QIDR 7 days #90 07/28/23 solution for nebulization mL metoprolol succinate 25 mg 12.5 mg (1/2 x 25 mg) PO QAM 30 07/28/23 tablet,extended release 24 hr days #15 tabs oseltamivir 75 mg capsule (Tamiflu) 75 mg PO BID #3 caps 07/28/23 prednisone 10 mg tablet 10 mg PO DAILY #16 tabs 07/28/23 Results & Data (ED) Vital Signs Vital Signs - 24 hr 12/29/23 21:29 12/29/23 21:31 12/29/23 21:46 Temperature 37.0 C Temperature Source Temporal Artery Scan Pulse Rate 139 H Pulse Rate [Finger] Pulse Rate from SpO2 Sensor Respiratory Rate 26 H Respiratory Effort / Characteristics Non-Labored Respiratory Depth Normal Respiratory Pattern Regular Blood Pressure 171/93 H Blood Pressure Mean 119 Pulse Oximetry 93 81 L 93 Oxygen Delivery Method Oxymask Room Air Oxymask Oxygen Flow Rate Fraction of Inspired Oxygen Sepsis Recent Fever Within 48 Hours No Sepsis New/Unexplained Change in Mental Status N/A Sepsis Action Taken by Nursing Physician Notified 12/29/23 21:49 12/29/23 22:03 12/29/23 22:04 Temperature Temperature Source Pulse Rate 144 H Pulse Rate [Finger] 147 H Pulse Rate from SpO2 Sensor 139 H Respiratory Rate 42 H 30 H Respiratory Effort / Characteristics Retracting Short of Breath Spontaneous Accessory Muscle Use Labored Pursed Lip Short of Breath Respiratory Depth Respiratory Pattern Blood Pressure Blood Pressure Mean Pulse Oximetry 94 94 Oxygen Delivery Method High Flow Nasal Cannula Oxygen Flow Rate 60 Fraction of Inspired Oxygen 60 Sepsis Recent Fever Within 48 Hours Sepsis New/Unexplained Change in Mental Status Sepsis Action Taken by Nursing 12/29/23 22:11 12/29/23 22:15 12/29/23 22:24 Temperature Temperature Source Pulse Rate 146 H 142 H 135 H Pulse Rate [Finger] Pulse Rate from SpO2 Sensor 139 H 137 H Respiratory Rate 42 H 40 H Respiratory Effort / Characteristics Respiratory Depth Respiratory Pattern Blood Pressure 113/88 Blood Pressure Mean 96 Pulse Oximetry 95 97 Oxygen Delivery Method High Flow Nasal Cannula Oxygen Flow Rate Fraction of Inspired Oxygen Sepsis Recent Fever Within 48 Hours Sepsis New/Unexplained Change in Mental Status Sepsis Action Taken by Nursing 12/29/23 22:30 12/29/23 22:42 12/29/23 22:45 Temperature Temperature Source Pulse Rate 137 H 143 H 139 H Pulse Rate [Finger] Pulse Rate from SpO2 Sensor 137 H 143 H 141 H Respiratory Rate 34 H 31 H 23 Respiratory Effort / Characteristics Respiratory Depth Respiratory Pattern Blood Pressure 140/93 138/86 Blood Pressure Mean 108 103 Pulse Oximetry 96 96 96 Oxygen Delivery Method High Flow Nasal Cannula High Flow Nasal Cannula Oxygen Flow Rate Fraction of Inspired Oxygen Sepsis Recent Fever Within 48 Hours Sepsis New/Unexplained Change in Mental Status Sepsis Action Taken by Nursing 12/29/23 22:57 12/29/23 23:00 12/29/23 23:12 Temperature Temperature Source Pulse Rate 144 H 140 H 139 H Pulse Rate [Finger] Pulse Rate from SpO2 Sensor 134 H 140 H 139 H Respiratory Rate 26 H 28 H 29 H Respiratory Effort / Characteristics Respiratory Depth Respiratory Pattern Blood Pressure 139/83 Blood Pressure Mean 101 Pulse Oximetry 96 95 95 Oxygen Delivery Method High Flow Nasal Cannula Oxygen Flow Rate Fraction of Inspired Oxygen Sepsis Recent Fever Within 48 Hours Sepsis New/Unexplained Change in Mental Status Sepsis Action Taken by Nursing 12/29/23 23:15 12/29/23 23:46 12/30/23 00:00 Temperature Temperature Source Pulse Rate 137 H 123 H Pulse Rate [Finger] Pulse Rate from SpO2 Sensor 135 H 123 H Respiratory Rate 21 Respiratory Effort / Characteristics Respiratory Depth Respiratory Pattern Blood Pressure 130/91 131/91 140/90 Blood Pressure Mean 104 103 106 Pulse Oximetry 95 94 Oxygen Delivery Method High Flow Nasal Cannula High Flow Nasal Cannula Oxygen Flow Rate 60 Fraction of Inspired Oxygen Sepsis Recent Fever Within 48 Hours Sepsis New/Unexplained Change in Mental Status Sepsis Action Taken by Nursing 12/30/23 00:15 12/30/23 00:24 12/30/23 00:30 Temperature Temperature Source Pulse Rate 122 H 121 H 120 H Pulse Rate [Finger] Pulse Rate from SpO2 Sensor 122 H 108 H 121 H Respiratory Rate 24 23 25 H Respiratory Effort / Characteristics Respiratory Depth Respiratory Pattern Blood Pressure 143/94 H 140/94 Blood Pressure Mean 110 109 Pulse Oximetry 95 95 95 Oxygen Delivery Method High Flow Nasal Cannula Oxygen Flow Rate Fraction of Inspired Oxygen Sepsis Recent Fever Within 48 Hours Sepsis New/Unexplained Change in Mental Status Sepsis Action Taken by Nursing Laboratory Data 12/29/23 22:01 12/29/23 22:01 Lab Results 12/29/23 12/29/23 12/29/23 Range/Units 21:53 21:54 22:01 WBC 15.82 H (4.8-10.8) K/ul RBC 5.62 (4.70-6.10) M/uL Hgb 15.9 (14.0-18.0) g/dl POC Hgb (14.0-18.0) g/dl Hct 47.8 (42.0-52.0) % POC Hct (42-52) % MCV 85.1 (80.0-100.0) fL MCH 28.3 (25.0-34.0) pg MCHC 33.3 (32.0-36.0) g/dL RDW Std Deviation 45.4 (36.4-46.3) fL RDW Coeff of Zainab 14.8 H (11.5-14.5) % Plt Count 226 (130-400) K/uL MPV 10.5 (9.4-12.4) fL Immature Gran % (Auto) 0.6 % Neut % (Auto) 83.9 % Lymph % (Auto) 11.8 % [place] % (Auto) 3.2 % Eos % (Auto) 0.2 % Baso % (Auto) 0.3 % Neut # (Auto) 13.28 H (1.40-6.50) K/uL Lymph # (Auto) 1.87 (1.20-3.40) K/uL [place] # (Auto) 0.51 (0.11-0.59) K/uL Eos # (Auto) 0.03 (0.00-0.50) K/uL Baso # (Auto) 0.04 (0.00-0.20) K/uL Immature Gran # (Auto) 0.09 (0.01-0.20) K/uL PT 11.3 (9.0-12.0) Seconds INR 1.0 (0.9-1.1) VBG pH 7.36 (7.36-7.41) VBG pCO2 43 (38-50) mmHg VBG pO2 49 mmHg VBG HCO3 24 mmol/L VBG O2 Saturation 83.1 % VBG Base Excess -1.3 mEq/L POC Sodium (135-144) mmol/L Sodium 142 (136-145) mmol/L POC Potassium (3.3-5.0) mmol/L Potassium 3.6 (3.5-5.1) mmol/L POC Chloride (101-112) mmol/L Chloride 106 (98-107) mmol/L Carbon Dioxide 24 (21-32) mmol/L POC Total CO2 (24-31) mmol/L Anion Gap 12 H (3-11) POC Anion Gap (16-25) mmol/L POC BUN (7-18) mg/dl BUN 19 (6-23) mg/dl Creatinine 1.09 (0.6-1.4) mg/dl POC Creatinine (0.6-1.3) mg/dl Est Cr Clr Drug Dosing 51.8 ml/min Est GFR ( Amer) 75.5 ml/min Est GFR (Non-Af Amer) 65.1 ml/min BUN/Creatinine Ratio 17.4 (10-20) Glucose 151 H (70-99(Fasting)) mg/dl POC Glucose (other) (70-99) mg/dl Lactate 3.0 H* (0.4-2.0) mmol/L Calcium 9.2 (8.6-10.3) mg/dl POC Ioniz Calcium Seb (1.12-1.32) mmol/l Total Bilirubin 0.5 (0.2-1.0) mg/dl AST 15 (13-39) U/L ALT 16 (7-52) U/L Alkaline Phosphatase 38 (34-104) U/L Troponin I High Sens 14.4 (0-20) pg/ml B-Natriuretic Peptide 21 (0-100) pg/ml Total Protein 7.5 (6.0-8.3) gm/dl Albumin 4.5 (3.4-5.0) gm/dl Globulin 3.0 (2.5-4.0) gm/dl Albumin/Globulin Ratio 1.5 (0.9-2) Urine Color Yellow Urine Appearance Clear (Clear) Urine pH 5.0 (4.5-7.5) Ur Specific Manquin 1.041 H (1.000-1.030) Urine Protein Trace H (Negative) Urine Glucose (UA) 3+ H (Negative) Urine Ketones Negative (Negative) Urine Blood Negative (Negative) Urine Nitrite Negative (Negative) Urine Bilirubin Negative (Negative) Urine Urobilinogen Negative (Negative) Ur Leukocyte Esterase Negative (Negative) Urine WBC (Auto) 0-5 (0-5) /hpf Urine RBC (Auto) 0-2 (0-2) /hpf U Hyaline Cast (Auto) 0-2 (0-2) /lpf U Epithel Cells (Auto) 0-2 (0-2) /hpf Urine Bacteria (Auto) None Seen (None Seen) Nasal Influ A H1 2008 PCR DETECTED A (NotDetected) Adenovirus (PCR) Not Detected (NotDetected) B. pertussis DNA (PCR) Not Detected (NotDetected) B.parapertussis DNA PCR Not Detected (NotDetected) C. pneumoniae DNA (PCR) Not Detected (NotDetected) Coronavirus OC43 (PCR) Not Detected (NotDetected) Coronavirus HKU1 (PCR) Not Detected (NotDetected) Coronavirus 229E (PCR) Not Detected (NotDetected) SARS-CoV-2 (PCR) Not Detected (NotDetected) Coronavirus NL63 (PCR) Not Detected (NotDetected) Human Metapneumovir PCR Not Detected (NotDetected) Influenza Type B (PCR) Not Detected (NotDetected) M. pneumoniae (PCR) Not Detected (NotDetected) Parainfluenza 1 (PCR) Not Detected (NotDetected) Parainfluenza 2 (PCR) Not Detected (NotDetected) Parainfluenza 3 (PCR) Not Detected (NotDetected) Parainfluenza 4 (PCR) Not Detected (NotDetected) RSV (PCR) Not Detected (NotDetected) Entero/Rhino (PCR) Not Detected (NotDetected) 12/29/23 12/30/23 Range/Units 22:09 00:26 WBC (4.8-10.8) K/ul RBC (4.70-6.10) M/uL Hgb (14.0-18.0) g/dl POC Hgb 16.0 (14.0-18.0) g/dl Hct (42.0-52.0) % POC Hct 47 (42-52) % MCV (80.0-100.0) fL MCH (25.0-34.0) pg MCHC (32.0-36.0) g/dL RDW Std Deviation (36.4-46.3) fL RDW Coeff of Zainab (11.5-14.5) % Plt Count (130-400) K/uL MPV (9.4-12.4) fL Immature Gran % (Auto) % Neut % (Auto) % Lymph % (Auto) % [place] % (Auto) % Eos % (Auto) % Baso % (Auto) % Neut # (Auto) (1.40-6.50) K/uL Lymph # (Auto) (1.20-3.40) K/uL [place] # (Auto) (0.11-0.59) K/uL Eos # (Auto) (0.00-0.50) K/uL Baso # (Auto) (0.00-0.20) K/uL Immature Gran # (Auto) (0.01-0.20) K/uL PT (9.0-12.0) Seconds INR (0.9-1.1) VBG pH (7.36-7.41) VBG pCO2 (38-50) mmHg VBG pO2 mmHg VBG HCO3 mmol/L VBG O2 Saturation % VBG Base Excess mEq/L POC Sodium 143 (135-144) mmol/L Sodium (136-145) mmol/L POC Potassium 4.0 (3.3-5.0) mmol/L Potassium (3.5-5.1) mmol/L POC Chloride 106 (101-112) mmol/L Chloride (98-107) mmol/L Carbon Dioxide (21-32) mmol/L POC Total CO2 25 (24-31) mmol/L Anion Gap (3-11) POC Anion Gap 17.0 (16-25) mmol/L POC BUN 20 H (7-18) mg/dl BUN (6-23) mg/dl Creatinine (0.6-1.4) mg/dl POC Creatinine 1.0 (0.6-1.3) mg/dl Est Cr Clr Drug Dosing ml/min Est GFR ( Amer) ml/min Est GFR (Non-Af Amer) ml/min BUN/Creatinine Ratio (10-20) Glucose (70-99(Fasting)) mg/dl POC Glucose (other) 154 H (70-99) mg/dl Lactate 1.4 (0.4-2.0) mmol/L Calcium (8.6-10.3) mg/dl POC Ioniz Calcium Seb 1.14 (1.12-1.32) mmol/l Total Bilirubin (0.2-1.0) mg/dl AST (13-39) U/L ALT (7-52) U/L Alkaline Phosphatase (34-104) U/L Troponin I High Sens (0-20) pg/ml B-Natriuretic Peptide (0-100) pg/ml Total Protein (6.0-8.3) gm/dl Albumin (3.4-5.0) gm/dl Globulin (2.5-4.0) gm/dl Albumin/Globulin Ratio (0.9-2) Urine Color Urine Appearance (Clear) Urine pH (4.5-7.5) Ur Specific Manquin (1.000-1.030) Urine Protein (Negative) Urine Glucose (UA) (Negative) Urine Ketones (Negative) Urine Blood (Negative) Urine Nitrite (Negative) Urine Bilirubin (Negative) Urine Urobilinogen (Negative) Ur Leukocyte Esterase (Negative) Urine WBC (Auto) (0-5) /hpf Urine RBC (Auto) (0-2) /hpf U Hyaline Cast (Auto) (0-2) /lpf U Epithel Cells (Auto) (0-2) /hpf Urine Bacteria (Auto) (None Seen) Nasal Influ A H1 2009 PCR (NotDetected) Adenovirus (PCR) (NotDetected) B. pertussis DNA (PCR) (NotDetected) B.parapertussis DNA PCR (NotDetected) C. pneumoniae DNA (PCR) (NotDetected) Coronavirus OC43 (PCR) (NotDetected) Coronavirus HKU1 (PCR) (NotDetected) Coronavirus 229E (PCR) (NotDetected) SARS-CoV-2 (PCR) (NotDetected) Coronavirus NL63 (PCR) (NotDetected) Human Metapneumovir PCR (NotDetected) Influenza Type B (PCR) (NotDetected) M. pneumoniae (PCR) (NotDetected) Parainfluenza 1 (PCR) (NotDetected) Parainfluenza 2 (PCR) (NotDetected) Parainfluenza 3 (PCR) (NotDetected) Parainfluenza 4 (PCR) (NotDetected) RSV (PCR) (NotDetected) Entero/Rhino (PCR) (NotDetected) Administered Medications Discontinued Medications Albuterol (Albut/Ipratrop 3mg/0.5mg Neb 3 Ml Vial) 3 ml NEB NOW STA; Protocol Stop: 12/29/23 21:51 Last Admin: 12/29/23 21:59 Dose: 3 ml Documented By: CINTHIA Albuterol (Albut/Ipratrop 3mg/0.5mg Neb 3 Ml Vial) 3 ml NEB NOW STA; Protocol Stop: 12/29/23 22:08 Last Admin: 12/29/23 22:18 Dose: 3 ml Documented By: CINTHIA Sodium Chloride (Nss) 500 mls @ 999 mls/hr IV .Q31M ONE Stop: 12/29/23 22:35 Last Infusion: 12/29/23 23:18 Dose: Infused Documented By: Admin: 12/29/23 22:18 Dose: 999 mls/hr Documented By: CINTHIA Cefepime HCl (Maxipime) 2,000 mg in 20 mls @ 5 mls/min IV NOW STA; Protocol Stop: 12/29/23 22:25 Last Admin: 12/29/23 23:49 Dose: 5 mls/min Documented By: CINTHIA Ioversol (Optiray 320 125ml) 125 ml IV ONCE ONE Stop: 12/29/23 23:45 Last Admin: 12/29/23 23:44 Dose: 116 ml Documented By: SABRINA Methylprednisolone (Methylprednisolone 125 Mg/2 Ml Vial) 125 mg IV NOW STA Stop: 12/29/23 21:51 Last Admin: 12/29/23 21:59 Dose: 125 mg Documented By: CINTHIA Oseltamivir Phosphate (Oseltamivir Phosphate 75 Mg Cap) 75 mg PO NOW STA; Protocol Stop: 12/29/23 23:10 Last Admin: 12/29/23 23:49 Dose: 75 mg Documented By: CINTHIA Imaging Data Radiologist's Impression: Abdomen/Pelvis CT 12/29/23 22:23 Exam(s): CT ABDOMEN + PELVIS With Contrast IV Amt: 116 ML OPTIRAY 320 EXAM: CT Abdomen and Pelvis With Intravenous Contrast CLINICAL HISTORY: Reason for exam: Vomiting, respiratory distress. TECHNIQUE: Axial computed tomography images of the abdomen and pelvis with intravenous contrast. CTDI is 28 mGy and DLP is 1287 mGy-cm. Automated exposure control was utilized for the study. A dose lowering technique was utilized adhering to the principles of ALARA. CONTRAST: Patient received 116 ML OPTIRAY 320 of IV contrast COMPARISON: No relevant prior studies available. FINDINGS: Limitations: Motion. Lung bases: Reported separately. ABDOMEN: Liver: Unremarkable. No mass. Gallbladder and bile ducts: Small gallstones. No evidence of cholecystitis. No ductal dilation. Pancreas: Unremarkable. No mass. No ductal dilation. Spleen: Unremarkable. No splenomegaly. Adrenals: Unremarkable. No mass. Kidneys and ureters: Symmetric renal enhancement. No hydronephrosis. Subcentimeter simple cyst in the left kidney; no further follow-up required. Stomach and bowel: Unremarkable. No bowel obstruction or mucosal thickening. PELVIS: Appendix: No evidence of appendicitis. Bladder: Unremarkable. No mass. Reproductive: Prostatomegaly. ABDOMEN and PELVIS: Intraperitoneal space: Unremarkable. No free fluid or free air. Bones/joints: No acute fracture or dislocation. Severe disc degeneration L5-S1. Bilateral pars defects at L5 with grade 1 spondylolisthesis. Soft tissues: Unremarkable. Vasculature: Atherosclerosis. No aortic aneurysm. Lymph nodes: Unremarkable. No enlarged lymph nodes. IMPRESSION: No acute findings in the abdomen or pelvis. Electronically signed by: Tuan Martin M.D. 12/30/23 00:17 AM Chest CTA 12/29/23 22:23 Exam(s): CTA CHEST IV Amt: 116 ML OPTIRAY 320 EXAM: CT Angiography Chest With Intravenous Contrast CLINICAL HISTORY: Reason for exam: PE. TECHNIQUE: Axial computed tomographic angiography images of the chest with intravenous contrast. CTDI is 28 mGy and DLP is 1287 mGy-cm. Automated exposure control was utilized for the study. A dose lowering technique was utilized adhering to the principles of ALARA. MIP reconstructed images were created and reviewed. COMPARISON: 07/25/23 FINDINGS: Pulmonary arteries: Adequate pulmonary artery opacification. No pulmonary embolism. Aorta: No acute findings. No aortic aneurysm or dissection. Lungs: Bilateral mostly dependent consolidation involving all lung lobes. Pleural space: Unremarkable. No pleural effusion or pneumothorax. Heart: Coronary artery atherosclerosis. No cardiomegaly, RV strain, or pericardial effusion. Bones/joints: No acute fracture. No dislocation. Soft tissues: Unremarkable. Lymph nodes: Unremarkable. No adenopathy by size criteria. IMPRESSION: 1. No evidence of pulmonary embolism. 2. Bilateral mostly dependent consolidation involving all lung lobes. These might represent atelectasis, pneumonia, or a combination of both. Electronically signed by: Tuan Martin M.D. 12/30/23 00:15 AM Discharge Plan Visit Data Chief Complaint: Shortness of Breath/Dyspnea Stated Complaint: SOB, HIGH HEART RATE ED Provider: Romero Raygoza Discharge Problem: Hypoxia Forms Stand Alone Forms: [employer] [facility] [employer] Prescriptions Prescriptions: No Action atorvastatin 20 mg tablet 20 mg PO DAILY ipratropium-albuterol 0.5 mg-3 mg(2.5 mg base)/3 mL solution for nebulization 3 ml INHALATION Q6H PRN (Reason: Shortness Of Breath Or Wheezing) sodium chloride 3 % solution for nebulization 4 ml INHALATION BID prednisone 5 mg tablet 5 mg PO DAILY Hold Instructions: Resume on 08/05/23. amlodipine 5 mg tablet 5 mg PO DAILY levothyroxine 100 mcg tablet 100 mcg PO DAILY losartan 25 mg tablet 25 mg PO DAILY mometasone 50 mcg/actuation spray,non-aerosol 2 spray INTRANASAL DAILY omeprazole 20 mg capsule,delayed release(DR/EC) 20 mg PO DAILY montelukast 10 mg tablet 10 mg PO HS albuterol sulfate 90 mcg/actuation HFA aerosol inhaler 2 puff INHALATION Q4H PRN (Reason: sob) glipizide 5 mg tablet 5 mg PO BID doxazosin 2 mg tablet 2 mg PO HS tiotropium bromide 18 mcg capsule, w/inhalation device 18 mcg INHALATION DAILY fluticasone furoate-vilanterol [Breo Ellipta] 200-25 mcg/dose blister with device 1 inh INHALATION DAILY Arnuity Ellipta 100 mcg/actuation blister with device 1 inh INHALATION DAILY oseltamivir [Tamiflu] 75 mg capsule 75 mg PO BID Qty: 3 0RF ipratropium bromide 0.02 % Solution 0.5 mg inhalation QIDR 7 Days Qty: 75 2RF levalbuterol HCl 1.25 mg/3 mL Solution For Nebulization 1.25 mg NEB QIDR 7 Days Qty: 90 1RF metoprolol succinate 25 mg Tablet Extended Release 24 Hr 12.5 mg PO QAM 30 Days Qty: 15 1RF aspirin 81 mg Tablet,Delayed Release (Dr/Ec) 81 mg PO QAM 30 Days Qty: 30 1RF Rx Instructions: always take with a full stomach prednisone 10 mg tablet 10 mg PO DAILY Qty: 16 0RF Rx Instructions: 40mg daily x 1 day, then 30mg daily x 2 days, then 20mg daily x 2 days, then 10mg daily x 2 days, then 5mg daily Referrals Referrals: Enrico Mccauley MD [Primary Care Provider] -
[2023-12-29] MEDS: methylPREDNISolone 125 MG/2 ML VIAL IV STA (21:59)
[2023-12-29] MEDS: ALBUT/IPRATROP 3MG/0.5MG NEB 3 ML VIAL NEB STA ×2 (21:59→22:18)
[2023-12-29 22:17] LABS: Base Excess VBG -1.3 mEq/L; HCO3 VBG 24 mmol/L; Oxygen Saturation VBG 83.1 %; PCO2 VBG 43 mmHg (38-50); PO2 VBG 49 mmHg; pH VBG 7.36 (7.36-7.41)
[2023-12-29] MEDS: SODIUM CHLORIDE 0.9% 500 ML IV ONE (22:18)
[2023-12-29 22:20] LABS: iSTAT Ionized Calcium 1.14 mmol/l (1.12-1.32)
[2023-12-29 22:21] LABS: Basophils # (auto) 0.04 K/uL (0.00-0.20); Basophils % (auto) 0.3 %; Eosinophils # (auto) 0.03 K/uL (0.00-0.50); Eosinophils % (auto) 0.2 %; Hematocrit (blood only) 47.8 % (42.0-52.0); Hemoglobin 15.9 g/dl (14.0-18.0); Immature Granulocytes # (auto) 0.09 K/uL (0.01-0.20); Immature Granulocytes % (auto) 0.6 %; Lymphocytes # (auto) 1.87 K/uL (1.20-3.40); Lymphocytes % (auto) 11.8 %; Mean Corpuscular Hemoglobin 28.3 pg (25.0-34.0); Mean Corpuscular Hgb Conc 33.3 g/dL (32.0-36.0); Mean Corpuscular Volume 85.1 fL (80.0-100.0); Mean Platelet Volume 10.5 fL (9.4-12.4); Monocytes # (auto) 0.51 K/uL (0.11-0.59); Monocytes % (auto) 3.2 %; Neutrophils # (auto) 13.28 K/uL (1.40-6.50); Neutrophils % (auto) 83.9 %; Platelet Count 226 K/uL (130-400); RDW Coefficient of Variation 14.8 % (11.5-14.5); RDW Standard Deviation 45.4 fL (36.4-46.3); Red Blood Count 5.62 M/uL (4.70-6.10); White Blood Count 15.82 K/ul (4.8-10.8)
[2023-12-29 22:22] LABS: Appearance Urine Clear (Clear); Bacteria Urine Automated None Seen (None Seen); Bilirubin Urine Negative (Negative); Blood Urine Negative (Negative); Cast Urine Automated 0-2 /lpf (0-2); Color Urine Yellow; Epithelial Cell Urine Auto 0-2 /hpf (0-2); Glucose Urine UA 3+ (Negative); Ketones Urine Negative (Negative); Leukocyte Esterase Urine Negative (Negative); Nitrite Urine Negative (Negative); Protein Urine Trace (Negative); RBC Urine Automated 0-2 /hpf (0-2); Specific Gravity Urine 1.041 (1.000-1.030); Urobilinogen Urine Negative (Negative); WBC Urine Automated 0-5 /hpf (0-5)
[2023-12-29 22:37] LABS: Albumin Globulin Ratio 1.5 (0.9-2); Albumin Level 4.5 gm/dl (3.4-5.0); BUN Creatinine Ratio 17.4 (10-20); Bilirubin,Total 0.5 mg/dl (0.2-1.0); Calcium 9.2 mg/dl (8.6-10.3); Creatinine Clr Calc Pharmacy 51.8 ml/min; Est GFR (African American) 75.5 ml/min; Est GFR (Non-African American) 65.1 ml/min; Potassium 3.6 mmol/L (3.5-5.1); Total Protein 7.5 gm/dl (6.0-8.3)
[2023-12-29 22:43] LABS: Troponin I High Sensitivity 14.4 pg/ml (0-20)
[2023-12-29 22:52] LABS: Prothrombin Time 11.3 Seconds (9.0-12.0)
[2023-12-29 23:07] LABS: Adenovirus PCR Not Detected (NotDetected); Bordetella parapertussis PCR Not Detected (NotDetected); Bordetella pertussis PCR Not Detected (NotDetected); Chlamydia pneumoniae PCR Not Detected (NotDetected); Coronavirus 229E PCR Not Detected (NotDetected); Coronavirus CoV-2 (COVID19)PCR Not Detected (NotDetected); Coronavirus HKU1 PCR Not Detected (NotDetected); Coronavirus NL63 PCR Not Detected (NotDetected); Coronavirus OC43PCR Not Detected (NotDetected); Human Metapneumovirus PCR Not Detected (NotDetected); Influenza A (H1 2009) PCR DETECTED (NotDetected); Influenza B PCR Not Detected (NotDetected); Mycoplasma pneumoniae PCR Not Detected (NotDetected); Parainfluenza Virus 1 PCR Not Detected (NotDetected); Parainfluenza Virus 2 PCR Not Detected (NotDetected); Parainfluenza Virus 3 PCR Not Detected (NotDetected); Parainfluenza Virus 4 PCR Not Detected (NotDetected); Respiratory Syncytial VirusPCR Not Detected (NotDetected); Rhinovirus/Enterovirus PCR Not Detected (NotDetected)
[2023-12-29] MEDS: OPTIRAY 320 125ml IV ONE (23:44)
[2023-12-29] MEDS: CEFEPIME 2,000 MG/20 ML VIAL IV STA (23:49)
[2023-12-29] MEDS: OSELTAMIVIR PHOSPHATE 75 MG CAP PO STA (23:49)
--- NOTE | 2023-12-30 00:16 | CT Scan Report ---
Exam(s): CTA CHEST IV Amt: 116 ML OPTIRAY 320 EXAM: CT Angiography Chest With Intravenous Contrast CLINICAL HISTORY: Reason for exam: PE. TECHNIQUE: Axial computed tomographic angiography images of the chest with intravenous contrast. CTDI is 28 mGy and DLP is 1287 mGy-cm. Automated exposure control was utilized for the study. A dose lowering technique was utilized adhering to the principles of ALARA. MIP reconstructed images were created and reviewed. COMPARISON: 07/25/23 FINDINGS: Pulmonary arteries: Adequate pulmonary artery opacification. No pulmonary embolism. Aorta: No acute findings. No aortic aneurysm or dissection. Lungs: Bilateral mostly dependent consolidation involving all lung lobes. Pleural space: Unremarkable. No pleural effusion or pneumothorax. Heart: Coronary artery atherosclerosis. No cardiomegaly, RV strain, or pericardial effusion. Bones/joints: No acute fracture. No dislocation. Soft tissues: Unremarkable. Lymph nodes: Unremarkable. No adenopathy by size criteria. IMPRESSION: 1. No evidence of pulmonary embolism. 2. Bilateral mostly dependent consolidation involving all lung lobes. These might represent atelectasis, pneumonia, or a combination of both. Electronically signed by: Tuan Martin M.D. 12/30/23 00:15 AM
--- NOTE | 2023-12-30 00:19 | CT Scan Report ---
Exam(s): CT ABDOMEN + PELVIS With Contrast IV Amt: 116 ML OPTIRAY 320 EXAM: CT Abdomen and Pelvis With Intravenous Contrast CLINICAL HISTORY: Reason for exam: Vomiting, respiratory distress. TECHNIQUE: Axial computed tomography images of the abdomen and pelvis with intravenous contrast. CTDI is 28 mGy and DLP is 1287 mGy-cm. Automated exposure control was utilized for the study. A dose lowering technique was utilized adhering to the principles of ALARA. CONTRAST: Patient received 116 ML OPTIRAY 320 of IV contrast COMPARISON: No relevant prior studies available. FINDINGS: Limitations: Motion. Lung bases: Reported separately. ABDOMEN: Liver: Unremarkable. No mass. Gallbladder and bile ducts: Small gallstones. No evidence of cholecystitis. No ductal dilation. Pancreas: Unremarkable. No mass. No ductal dilation. Spleen: Unremarkable. No splenomegaly. Adrenals: Unremarkable. No mass. Kidneys and ureters: Symmetric renal enhancement. No hydronephrosis. Subcentimeter simple cyst in the left kidney; no further follow-up required. Stomach and bowel: Unremarkable. No bowel obstruction or mucosal thickening. PELVIS: Appendix: No evidence of appendicitis. Bladder: Unremarkable. No mass. Reproductive: Prostatomegaly. ABDOMEN and PELVIS: Intraperitoneal space: Unremarkable. No free fluid or free air. Bones/joints: No acute fracture or dislocation. Severe disc degeneration L5-S1. Bilateral pars defects at L5 with grade 1 spondylolisthesis. Soft tissues: Unremarkable. Vasculature: Atherosclerosis. No aortic aneurysm. Lymph nodes: Unremarkable. No enlarged lymph nodes. IMPRESSION: No acute findings in the abdomen or pelvis. Electronically signed by: Tuan aMrtin M.D. 12/30/23 00:17 AM
[2023-12-30 00:56] LABS: Magnesium 1.8 mg/dl (1.7-2.4)
[2023-12-30] MEDS: SODIUM CHLORIDE 0.9% 1,000 ML IV ONE (00:56)
[2023-12-30] MEDS: AZITHROMYCIN 500 MG in DEXTROSE 5% 250 ML IV STA (01:13)
[2023-12-30] MEDS: NSS + 20MEQ KCL 20 MEQ/1,000 ML BAG IV STA (01:16)
[2023-12-30] MEDS: POTASSIUM CHLORIDE PWD 20 MEQ PACK PO STA (01:16)
[2023-12-30 01:40] LABS: Base Excess ABG -3.3 mEq/L (-9-1.8); HCO3 ABG 21 mmol/L (19-24); Oxygen Saturation ABG 98.5 % (90-95); PCO2 ABG 36 mmHg (35-46); PO2 ABG 84 mmHg (80-95); pH ABG 7.38 (7.35-7.45)
--- NOTE | 2023-12-30 01:52 | History & Physical Report ---
Date of Service December 30, 2023 Assessment & Plan (1) Acute hypoxemic respiratory failure: Plan: Secondary to asthma/ILD exacerbation secondary to recurrent influenza illness Chronic steroid Rx for chronic lung disease Encephalopathy secondary to illness Diastolic dysfunction, patient on the dry side valvular heart disease (moderate , trace AR) PHILLIP /CPAP noncompliance hypertension, initially elevated upon arrival at the ER hyperlipidemia, on statin Rx DM2 on oral medications, suboptimal control as of recent hemoglobin A1c of 10 October 2023 GERD, stable on regimen hypothyroidism, euthyroid as of recent outpatient TSH PCU given tachycardia Supplemental O2 Baseline ABG Tamiflu, nebs RTC, prednisone course Pulmonary consult if without improvement Basal bolus insulin, ISS BG goal 1 10-1 40, carb count coverage DVT prophylaxis. Lovenox subcu Full code Patient requesting updates providers. Ms. Desiree Collazogillesquin, contact #[phone]. Text document was generated using [employer] voice recognition software. It may contain grammatical or spelling errors. Kindly contact undersigned for clarification of any documentation item in question. History of Present Illness Chief Complaint: Shortness of breath Primary Care Provider: Enrico Mccauley MD History obtained from patient, family, and records. Limited history from patient secondary to confusion. Medical history significant for diastolic dysfunction (EF 60 to 65%, TTE 2022), asthma/RLD as per records on chronic steroid Rx, valvular heart disease (moderate , trace AR), PHILLIP /CPAP noncompliance, hypertension, hyperlipidemia, DM2 on oral medications, GERD, hypothyroidism. Last confinement June 2023 for asthma exacerbation secondary to influenza illness. Last night, patient noted shortness of breath with mild cough symptoms. No chest pain. Denies fluid retention. Not sure about sick contacts. No aspiration. Patient somewhat more confused than usual upon arrival at the ER as per . Lowest O2 sats of 80s documented at the ER. Patient could not tolerate BiPAP. Currently on high flow nasal cannula. 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 Verified 12/30/23 00:53 SUJATHA Inhibitors AdvReac Mild Cough Verified 12/30/23 00:53 Home Medications Medication Instructions Recorded Confirmed Type albuterol sulfate 90 mcg/actuation 2 puff inhalation Q4H PRN sob 07/25/23 12/30/23 History aerosol inhaler amlodipine 5 mg tablet 5 mg PO DAILY 07/25/23 12/30/23 History atorvastatin 20 mg tablet 20 mg PO DAILY 07/25/23 12/30/23 History doxazosin 2 mg tablet 2 mg PO HS 07/25/23 12/30/23 History fluticasone furoate 100 1 inh inhalation DAILY 07/25/23 12/30/23 History mcg/actuation blister powder for inhalation (Arnuity Ellipta) glipizide 5 mg tablet 5 mg PO BID 07/25/23 12/30/23 History ipratropium 0.5 mg-albuterol 3 mg 3 ml inhalation Q6H PRN Shortness 07/25/23 12/30/23 History (2.5 mg base)/3 mL nebulization Of Breath Or Wheezing soln levothyroxine 100 mcg tablet 100 mcg PO DAILY 07/25/23 12/30/23 History losartan 25 mg tablet 25 mg PO DAILY 07/25/23 12/30/23 History mometasone 50 mcg/actuation nasal 2 spray intranasal DAILY 07/25/23 12/30/23 History spray montelukast 10 mg tablet 10 mg PO HS 07/25/23 12/30/23 History omeprazole 20 mg capsule,delayed 20 mg PO DAILY 07/25/23 12/30/23 History release prednisone 5 mg tablet 5 mg PO DAILY 07/25/23 12/30/23 History sodium chloride 3 % for 4 ml inhalation BID 07/25/23 12/30/23 History nebulization tiotropium bromide 18 mcg capsule 18 mcg inhalation DAILY 07/25/23 12/30/23 History with inhalation device aspirin 81 mg tablet,delayed 81 mg PO QAM 30 days #30 tabs 07/28/23 12/30/23 Rx release metoprolol succinate 25 mg 12.5 mg (1/2 x 25 mg) PO QAM 30 07/28/23 12/30/23 Rx tablet,extended release 24 hr days #15 tabs empagliflozin 25 mg tablet 25 mg PO DAILY 12/30/23 12/30/23 History (Jardiance) omalizumab 150 mg/mL subcutaneous 150 mg subcut .QMONTH 12/30/23 12/30/23 History syringe (Xolair) Past Med/Surg History Problem List (Updated 12/30/23 @ 11:13 by Luis Fernando Pagan MD) Acute hypoxemic respiratory failure Hypoxia (Acute) Aortic stenosis, moderate Bronchiectasis Asthma exacerbation Shortness of breath (Acute) Influenza A (Acute) Acute hypoxic respiratory failure (Acute) Obstructive sleep apnea (adult) (pediatric) Encounter for pre-operative examination DM type 2 (diabetes mellitus, type 2) (Chronic) Hypothyroidism (Chronic) Dyslipidemia (Chronic) Asthma, moderate persistent (Chronic) Allergic rhinitis (Chronic) HTN (hypertension) (Chronic) BPH (benign prostatic hyperplasia) (Chronic) Gastroesophageal reflux disease (Acute) PHILLIP on CPAP Headache (Acute) Nausea & vomiting (Acute) Acute hyponatremia (Acute) Hypokalemia (Acute) Medical History Obstructive sleep apnea (adult) (pediatric) Asthma exacerbation Osteoarthritis Chronic back pain GERD (gastroesophageal reflux disease) Hypothyroidism Diabetes mellitus, type 2 NIDDM Chronic steroid use COPD Chronic headaches Hypertension Hyperlipidemia Pneumonia annually. last 11/2019. Asthma H. 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 Beliefs That Will Affect Care: None marital status: Current Living Situation: Spouse current occupational status: retired Other Information That Helps Us Care for You: No Feels Safe at Home: Yes Safety Concerns: Feels Safe At This Time Assistive Devices: Cane and Denture - Upper Review of Systems Review of Systems: Could not be reliably obtained secondary to disorientation Physical Exam Physical Exam: GENERAL: Disoriented, obese, episodic tachypnea SKIN: Normal color, warm HEENT: Partial alopecia, [place] palpebral conjunctivae, no ptosis, dry buccal mucosa, nasal cannula in place NECK : Supple, no tenderness CHEST : Decreased breath sounds, scattered expiratory wheezes, no tenderness HEART : Tachycardic, systolic murmur ABDOMEN: Some distention, nontender EXTREMITIES : No LE swelling/tenderness, no other conspicuous deformities noted NEUROLOGIC : Disoriented, no facial asymmetry, no other gross focality Results & Data Results & Data Vital Signs (Past 12 Hours) Vital Signs Temp Pulse Pulse Pulse Resp BP BP 12/30/23 01:24 36.8 C 124 H 23 153/107 H 12/30/23 00:57 37.0 C 121 H 26 H 138/94 12/30/23 00:30 120 H 25 H 140/94 12/30/23 00:24 121 H 23 12/30/23 00:15 122 H 24 143/94 H 12/30/23 00:00 123 H 21 140/90 12/29/23 23:46 131/91 12/29/23 23:15 137 H 130/91 12/29/23 23:12 139 H 29 H 12/29/23 23:00 140 H 28 H 139/83 12/29/23 22:57 144 H 26 H 12/29/23 22:45 139 H 23 138/86 12/29/23 22:42 143 H 31 H 12/29/23 22:30 137 H 34 H 140/93 12/29/23 22:24 135 H 40 H 12/29/23 22:15 142 H 42 H 113/88 12/29/23 22:11 146 H 12/29/23 22:04 147 H 30 H 12/29/23 22:03 144 H 42 H 12/29/23 21:46 12/29/23 21:31 37.0 C 139 H 26 H 171/93 H 12/29/23 21:29 Pulse Ox O2 Del Method O2 Flow Rate FiO2 12/30/23 01:24 95 High Flow Nasal Cannula 60 50 12/30/23 00:57 96 High Flow Nasal Cannula 60 12/30/23 00:30 95 High Flow Nasal Cannula 12/30/23 00:24 95 12/30/23 00:15 95 12/30/23 00:00 94 High Flow Nasal Cannula 12/29/23 23:46 12/29/23 23:15 95 High Flow Nasal Cannula 60 12/29/23 23:12 95 12/29/23 23:00 95 High Flow Nasal Cannula 12/29/23 22:57 96 12/29/23 22:45 96 High Flow Nasal Cannula 12/29/23 22:42 96 12/29/23 22:30 96 High Flow Nasal Cannula 12/29/23 22:24 97 12/29/23 22:15 95 High Flow Nasal Cannula 12/29/23 22:11 12/29/23 22:04 94 High Flow Nasal Cannula 60 60 12/29/23 22:03 94 12/29/23 21:46 93 Oxymask 12/29/23 21:31 81 L Room Air 12/29/23 21:29 93 Oxymask Laboratory Results Laboratory Results WBC 15.82 K/ul (4.8-10.8) H 12/29/23 22:01 RBC 5.62 M/uL (4.70-6.10) 12/29/23 22:01 Hgb 15.9 g/dl (14.0-18.0) 12/29/23 22:01 POC Hgb 16.0 g/dl (14.0-18.0) 12/29/23 22:09 Hct 47.8 % (42.0-52.0) 12/29/23 22:01 POC Hct 47 % (42-52) 12/29/23 22:09 MCV 85.1 fL (80.0-100.0) 12/29/23 22:01 MCH 28.3 pg (25.0-34.0) 12/29/23 22:01 MCHC 33.3 g/dL (32.0-36.0) 12/29/23 22:01 RDW Std Deviation 45.4 fL (36.4-46.3) 12/29/23 22:01 RDW Coeff of Zainab 14.8 % (11.5-14.5) H 12/29/23 22:01 Plt Count 226 K/uL (130-400) 12/29/23 22:01 MPV 10.5 fL (9.4-12.4) 12/29/23 22:01 Immature Gran % (Auto) 0.6 % 12/29/23 22:01 Neut % (Auto) 83.9 % 12/29/23 22:01 Lymph % (Auto) 11.8 % 12/29/23 22:01 [place] % (Auto) 3.2 % 12/29/23 22:01 Eos % (Auto) 0.2 % 12/29/23 22:01 Baso % (Auto) 0.3 % 12/29/23 22:01 Neut # (Auto) 13.28 K/uL (1.40-6.50) H 12/29/23 22:01 Lymph # (Auto) 1.87 K/uL (1.20-3.40) 12/29/23 22:01 [place] # (Auto) 0.51 K/uL (0.11-0.59) 12/29/23 22:01 Eos # (Auto) 0.03 K/uL (0.00-0.50) 12/29/23 22:01 Baso # (Auto) 0.04 K/uL (0.00-0.20) 12/29/23 22:01 Immature Gran # (Auto) 0.09 K/uL (0.01-0.20) 12/29/23 22:01 PT 11.3 Seconds (9.0-12.0) 12/29/23 22:01 INR 1.0 (0.9-1.1) 12/29/23 22:01 ABG pH 7.38 (7.35-7.45) 12/30/23 01:33 ABG pCO2 36 mmHg (35-46) 12/30/23 01:33 ABG pO2 84 mmHg (80-95) 12/30/23 01:33 ABG HCO3 21 mmol/L (19-24) 12/30/23 01:33 ABG O2 Saturation 98.5 % (90-95) H 12/30/23 01:33 ABG Base Excess -3.3 mEq/L (-9-1.8) 12/30/23 01:33 VBG pH 7.36 (7.36-7.41) 12/29/23 22:01 VBG pCO2 43 mmHg (38-50) 12/29/23 22:01 VBG pO2 49 mmHg 12/29/23 22:01 VBG HCO3 24 mmol/L 12/29/23 22:01 VBG O2 Saturation 83.1 % 12/29/23 22:01 VBG Base Excess -1.3 mEq/L 12/29/23 22:01 POC Sodium 143 mmol/L (135-144) 12/29/23 22:09 Sodium 142 mmol/L (136-145) 12/29/23 22:01 POC Potassium 4.0 mmol/L (3.3-5.0) 12/29/23 22:09 Potassium 3.6 mmol/L (3.5-5.1) 12/29/23 22:01 POC Chloride 106 mmol/L (101-112) 12/29/23 22:09 Chloride 106 mmol/L (98-107) 12/29/23 22:01 Carbon Dioxide 24 mmol/L (21-32) 12/29/23 22:01 POC Total CO2 25 mmol/L (24-31) 12/29/23 22:09 Anion Gap 12 (3-11) H 12/29/23 22:01 POC Anion Gap 17.0 mmol/L (16-25) 12/29/23 22:09 POC BUN 20 mg/dl (7-18) H 12/29/23 22:09 BUN 19 mg/dl (6-23) 12/29/23 22:01 Creatinine 1.09 mg/dl (0.6-1.4) 12/29/23 22:01 POC Creatinine 1.0 mg/dl (0.6-1.3) 12/29/23 22:09 Est Cr Clr Drug Dosing 51.8 ml/min 12/29/23 22:01 Est GFR ( Amer) 75.5 ml/min 12/29/23 22:01 Est GFR (Non-Af Amer) 65.1 ml/min 12/29/23 22:01 BUN/Creatinine Ratio 17.4 (10-20) 12/29/23 22:01 Glucose 151 mg/dl (70-99(Fasting)) H 12/29/23 22:01 POC Glucose (other) 154 mg/dl (70-99) H 12/29/23 22:09 Lactate 1.4 mmol/L (0.4-2.0) 12/30/23 00:26 Calcium 9.2 mg/dl (8.6-10.3) 12/29/23 22:01 POC Ioniz Calcium Seb 1.14 mmol/l (1.12-1.32) 12/29/23 22:09 Magnesium 1.8 mg/dl (1.7-2.4) 12/29/23 22:01 Total Bilirubin 0.5 mg/dl (0.2-1.0) 12/29/23 22:01 AST 15 U/L (13-39) 12/29/23 22:01 ALT 16 U/L (7-52) 12/29/23 22:01 Alkaline Phosphatase 38 U/L (34-104) 12/29/23 22:01 Troponin I High Sens 14.4 pg/ml (0-20) 12/29/23 22:01 B-Natriuretic Peptide 21 pg/ml (0-100) 12/29/23 22:01 Total Protein 7.5 gm/dl (6.0-8.3) 12/29/23 22:01 Albumin 4.5 gm/dl (3.4-5.0) 12/29/23 22:01 Globulin 3.0 gm/dl (2.5-4.0) 12/29/23 22:01 Albumin/Globulin Ratio 1.5 (0.9-2) 12/29/23 22:01 Urine Color Yellow 12/29/23 21:54 Urine Appearance Clear (Clear) 12/29/23 21:54 Urine pH 5.0 (4.5-7.5) 12/29/23 21:54 Ur Specific [place] 1.041 (1.000-1.030) H 12/29/23 21:54 Urine Protein Trace (Negative) H 12/29/23 21:54 Urine Glucose (UA) 3+ (Negative) H 12/29/23 21:54 Urine Ketones Negative (Negative) 12/29/23 21:54 Urine Blood Negative (Negative) 12/29/23 21:54 Urine Nitrite Negative (Negative) 12/29/23 21:54 Urine Bilirubin Negative (Negative) 12/29/23 21:54 Urine Urobilinogen Negative (Negative) 12/29/23 21:54 Ur Leukocyte Esterase Negative (Negative) 12/29/23 21:54 Urine WBC (Auto) 0-5 /hpf (0-5) 12/29/23 21:54 Urine RBC (Auto) 0-2 /hpf (0-2) 12/29/23 21:54 U Hyaline Cast (Auto) 0-2 /lpf (0-2) 12/29/23 21:54 U Epithel Cells (Auto) 0-2 /hpf (0-2) 12/29/23 21:54 Urine Bacteria (Auto) None Seen (None Seen) 12/29/23 21:54 Nasal Influ A H1 2009 PCR DETECTED (NotDetected) A 12/29/23 21:53 Adenovirus (PCR) Not Detected (NotDetected) 12/29/23 21:53 B. pertussis DNA (PCR) Not Detected (NotDetected) 12/29/23 21:53 B.parapertussis DNA PCR Not Detected (NotDetected) 12/29/23 21:53 C. pneumoniae DNA (PCR) Not Detected (NotDetected) 12/29/23 21:53 Coronavirus OC43 (PCR) Not Detected (NotDetected) 12/29/23 21:53 Coronavirus HKU1 (PCR) Not Detected (NotDetected) 12/29/23 21:53 Coronavirus 229E (PCR) Not Detected (NotDetected) 12/29/23 21:53 SARS-CoV-2 (PCR) Not Detected (NotDetected) 12/29/23 21:53 Coronavirus NL63 (PCR) Not Detected (NotDetected) 12/29/23 21:53 Human Metapneumovir PCR Not Detected (NotDetected) 12/29/23 21:53 Influenza Type B (PCR) Not Detected (NotDetected) 12/29/23 21:53 M. pneumoniae (PCR) Not Detected (NotDetected) 12/29/23 21:53 Parainfluenza 1 (PCR) Not Detected (NotDetected) 12/29/23 21:53 Parainfluenza 2 (PCR) Not Detected (NotDetected) 12/29/23 21:53 Parainfluenza 3 (PCR) Not Detected (NotDetected) 12/29/23 21:53 Parainfluenza 4 (PCR) Not Detected (NotDetected) 12/29/23 21:53 RSV (PCR) Not Detected (NotDetected) 12/29/23 21:53 Entero/Rhino (PCR) Not Detected (NotDetected) 12/29/23 21:53 Impressions Abdomen/Pelvis CT 12/29/23 22:23 Exam(s): CT ABDOMEN + PELVIS With Contrast IV Amt: 116 ML OPTIRAY 320 EXAM: CT Abdomen and Pelvis With Intravenous Contrast CLINICAL HISTORY: Reason for exam: Vomiting, respiratory distress. TECHNIQUE: Axial computed tomography images of the abdomen and pelvis with intravenous contrast. CTDI is 28 mGy and DLP is 1287 mGy-cm. Automated exposure control was utilized for the study. A dose lowering technique was utilized adhering to the principles of ALARA. CONTRAST: Patient received 116 ML OPTIRAY 320 of IV contrast COMPARISON: No relevant prior studies available. FINDINGS: Limitations: Motion. Lung bases: Reported separately. ABDOMEN: Liver: Unremarkable. No mass. Gallbladder and bile ducts: Small gallstones. No evidence of cholecystitis. No ductal dilation. Pancreas: Unremarkable. No mass. No ductal dilation. Spleen: Unremarkable. No splenomegaly. Adrenals: Unremarkable. No mass. Kidneys and ureters: Symmetric renal enhancement. No hydronephrosis. Subcentimeter simple cyst in the left kidney; no further follow-up required. Stomach and bowel: Unremarkable. No bowel obstruction or mucosal thickening. PELVIS: Appendix: No evidence of appendicitis. Bladder: Unremarkable. No mass. Reproductive: Prostatomegaly. ABDOMEN and PELVIS: Intraperitoneal space: Unremarkable. No free fluid or free air. Bones/joints: No acute fracture or dislocation. Severe disc degeneration L5-S1. Bilateral pars defects at L5 with grade 1 spondylolisthesis. Soft tissues: Unremarkable. Vasculature: Atherosclerosis. No aortic aneurysm. Lymph nodes: Unremarkable. No enlarged lymph nodes. IMPRESSION: No acute findings in the abdomen or pelvis. Electronically signed by: Tuan Martin M.D. 12/30/23 00:17 AM Chest CTA 12/29/23 22:23 Exam(s): CTA CHEST IV Amt: 116 ML OPTIRAY 320 EXAM: CT Angiography Chest With Intravenous Contrast CLINICAL HISTORY: Reason for exam: PE. TECHNIQUE: Axial computed tomographic angiography images of the chest with intravenous contrast. CTDI is 28 mGy and DLP is 1287 mGy-cm. Automated exposure control was utilized for the study. A dose lowering technique was utilized adhering to the principles of ALARA. MIP reconstructed images were created and reviewed. COMPARISON: 07/25/23 FINDINGS: Pulmonary arteries: Adequate pulmonary artery opacification. No pulmonary embolism. Aorta: No acute findings. No aortic aneurysm or dissection. Lungs: Bilateral mostly dependent consolidation involving all lung lobes. Pleural space: Unremarkable. No pleural effusion or pneumothorax. Heart: Coronary artery atherosclerosis. No cardiomegaly, RV strain, or pericardial effusion. Bones/joints: No acute fracture. No dislocation. Soft tissues: Unremarkable. Lymph nodes: Unremarkable. No adenopathy by size criteria. IMPRESSION: 1. No evidence of pulmonary embolism. 2. Bilateral mostly dependent consolidation involving all lung lobes. These might represent atelectasis, pneumonia, or a combination of both. Electronically signed by: Tuan Martin M.D. 12/30/23 00:15 AM Diagnostic Findings EKG as per my interpretation :Rate 140, sinus tachycardia, normal axis, inferior infarct, no ischemia
[2023-12-30] MEDS ORDERED: DEXTROSE 50% 50 ML SYRINGE IV PRN (01:58)
[2023-12-30] MEDS ORDERED: GLUCOSE 10 TAB/TUBE PO PRN (01:58)
[2023-12-30] MEDS: METOPROLOL TARTRATE 1 MG/ML VIAL IV STA (01:58)
[2023-12-30] MEDS ORDERED: GLUCAGON FOR INJ 1 MG VIAL SQ PRN (01:58)
[2023-12-30] MEDS ORDERED: GLUCOSE 40% GEL 15 GM TUBE PO PRN (01:58)
[2023-12-30] MEDS ORDERED: CARBOHYDRATES FOR HYPOGLYCEMIA PO PRN (01:58)
[2023-12-30 02:02] LABS: Allen Test Pos (Pos)
[2023-12-30] MEDS: INSULIN ASPART PER UNIT CHARGE SC STA (02:10)
[2023-12-30] MEDS: MAGNESIUM SULFATE / D5W 1 GM/100 ML BAG IV SCH (02:10)
[2023-12-30] MEDS: LANTUS PER UNIT CHARGE SQ SCH ×2 (02:59→20:33)
[2023-12-30] MEDS: LANTUS PER UNIT CHARGE SQ STA (03:16)
[2023-12-30 05:21] LABS: Hematocrit (blood only) 42.4 % (42.0-52.0); Hemoglobin 14.5 g/dl (14.0-18.0); Mean Corpuscular Hemoglobin 29.3 pg (25.0-34.0); Mean Corpuscular Hgb Conc 34.2 g/dL (32.0-36.0); Mean Corpuscular Volume 85.7 fL (80.0-100.0); Mean Platelet Volume 10.2 fL (9.4-12.4); Platelet Count 245 K/uL (130-400); RDW Coefficient of Variation 14.8 % (11.5-14.5); RDW Standard Deviation 45.1 fL (36.4-46.3); Red Blood Count 4.95 M/uL (4.70-6.10); White Blood Count 17.91 K/ul (4.8-10.8)
[2023-12-30 05:31] LABS: BUN Creatinine Ratio 16.2 (10-20); Calcium 8.5 mg/dl (8.6-10.3); Creatinine Clr Calc Pharmacy 57.1 ml/min; Est GFR (African American) 84.8 ml/min; Est GFR (Non-African American) 73.2 ml/min; Potassium 3.9 mmol/L (3.5-5.1)
[2023-12-30 05:53] LABS: Basophils # (auto) 0.03 K/uL (0.00-0.20); Basophils % (auto) 0.2 %; Immature Granulocytes # (auto) 0.07 K/uL (0.01-0.20); Immature Granulocytes % (auto) 0.4 %; Lymphocytes # (auto) 0.52 K/uL (1.20-3.40); Lymphocytes % (auto) 2.9 %; Monocytes # (auto) 1.04 K/uL (0.11-0.59); Monocytes % (auto) 5.8 %; Neutrophils # (auto) 16.25 K/uL (1.40-6.50); Neutrophils % (auto) 90.7 %
[2023-12-30] MEDS: IPRATROPIUM BROMIDE NEB SOLN 0.02% 0.5MG/2.5ML VIAL INH SCH (06:51)
[2023-12-30] MEDS: LEVALBUTEROL 1.25 MG/3 ML NEB NEB SCH (06:51)
--- NOTE | 2023-12-30 07:35 | XRay Report ---
XR chest 1V portable HISTORY: 78 years-old Male Dyspnea acute shortness of breath COMPARISON: CTA chest of same day TECHNIQUE: AP view of the chest FINDINGS: Cardiac silhouette is enlarged. Pulmonary vascular congestion with interstitial coarsening. Mid and b ibasilar consolidative opacities. No pneumothorax or pleural effusion. Hypoinflation. IMPRESSION: 1. Cardiomegaly with pulmonary vascular congestion. 2. Mid to lower lung zone consolidation suggestive of pneumonia versus aspiration. ACT 112: Negative or not required by law. The above report was generated using voice recognition software. It may contain grammatical, syntax o r spelling errors. Electronically signed by: Ariel Antoine M.D. 12/30/2023 7:34 AM
[2023-12-30] MEDS: METOPROLOL SUCC 25MG EXT REL TAB PO SCH (08:07)
[2023-12-30] MEDS: LEVOTHYROXINE SODIUM 100 MCG TABLET PO SCH (08:07)
[2023-12-30] MEDS: PANTOprazole 40 MG TAB PO SCH (08:07)
[2023-12-30] MEDS: LOSARTAN POTASSIUM 25 MG TAB PO SCH (08:08)
[2023-12-30] MEDS: ATORVASTATIN 20 MG TAB PO SCH (08:08)
[2023-12-30] MEDS: ENOXAPARIN INJ 40 MG/0.4 ML SYR SQ SCH (08:08)
[2023-12-30] MEDS: amLODIPine BESYLATE 5 MG TAB PO SCH (08:08)
[2023-12-30] MEDS: ASPIRIN 81 MG ECTAB PO SCH (08:08)
[2023-12-30] MEDS: predniSONE 20 MG TAB PO SCH (08:08)
[2023-12-30] MEDS: FLUTICASONE PROPIONATE NA SPR 16 GM BTL SCH (08:10)
[2023-12-30] MEDS: OSELTAMIVIR PHOSPHATE SUSP 30 MG/5 ML UDP PO SCH (08:35)
[2023-12-30] MEDS ORDERED: FLUTICASONE FUROATE 100MCG 14 PUFFS/INHALER INH SCH (09:00)
[2023-12-30] MEDS: INSULIN ASPART PER UNIT CHARGE SC SCH (09:06)
[2023-12-30] MEDS: ACETAMINOPHEN 325 MG TAB PO PRN (13:36)
--- NOTE | 2023-12-30 15:23 | Hospitalist Progress Note ---
Date of Service December 30, 2023 Assessment & Plan (1) Acute hypoxemic respiratory failure: Plan: Acute respiratory failure with hypoxia Acute asthma/interstitial lung disease exacerbation Secondary to influenza infection Chronic steroid dependence --CTA: No evidence of pulmonary embolism. Bilateral mostly dependent consolidation involving all lung lobes. These might represent atelectasis, pneumonia, or a combination of both. -- Normal procalcitonin --Blood culture pending Continue prednisone, nebs Empirically started on doxycycline Continue Tamiflu Continue supplemental oxygen as needed Will consider pulmonary evaluation if no improvement Aspiration precautions Add speech therapy evaluation Titrate down supplemental oxygen as able Acute metabolic encephalopathy Secondary to above Mental status much improved Will consider CT head if needed Normal ammonia levels Monitor Diastolic dysfunction Valvular heart disease (moderate , trace AR) Hypertension Hyperlipidemia Continue aspirin, statin, amlodipine, metoprolol, losartan Monitor volume status PHILLIP CPAP noncompliance [employer] for CPAP compliance DM II Hold p.o. medications Continue insulin while hospitalized Monitor BGs GERD Continue PPI Hypothyroidism Continue levothyroxine DVT Px: Lovenox SQ Code Status Full code Admission and Anticipated Discharge Date Admission Date: December 30, 2023 Subjective Patient is seen and examined at bedside States that his shortness of breath is better when compared to yesterday Denies any significant cough Had speech therapy evaluation earlier today Denies any chest pain, nausea, vomiting, abdominal pain Currently on high flow oxygen No other complaints Review of Systems Review of Systems: All systems reviewed & are unremarkable except as noted in Subjective Physical Exam Physical Exam: Physical Exam: Vitals signs as noted above General Appearance:Obese, Moderately built and nourished, no apparent distress Head: normocephalic, Atraumatic Eyes: normal inspection, EOMI Neck: supple, Trachea midline Respiratory/Chest: Decreased breath sounds, +basal crackles, No accessory muscle use Cardiovascular: S1, S2, + murmur,+Tachycardia Abdomen/GI:Soft, Non tender, Bowel sounds present Extremities/Musculoskeletal:normal inspection, no edema Neurologic/Psych:AAO, grossly no focal neurological deficits Skin: normal color, warm Results & Data Results & Data Vital Signs (Past 12 Hours) Vital Signs Temp Pulse Pulse Resp BP Pulse Ox O2 Del Method 12/30/23 12:53 100 H 22 96 High Flow Nasal Cannula 12/30/23 11:52 36.6 C 102 H 20 148/86 H 97 High Flow Nasal Cannula 12/30/23 11:00 101 H 20 97 High Flow Nasal Cannula 12/30/23 09:45 High Flow Nasal Cannula 12/30/23 07:38 89 12/30/23 07:29 36.5 C 86 19 117/73 97 High Flow Nasal Cannula 12/30/23 06:51 94 H 16 94 High Flow Nasal Cannula 12/30/23 06:41 98 High Flow Nasal Cannula 12/30/23 05:10 101 H 20 95 High Flow Nasal Cannula 12/30/23 04:19 36.8 C 102 H 20 126/94 97 High Flow Nasal Cannula O2 Flow Rate FiO2 12/30/23 12:53 40 30 12/30/23 11:52 40 30 12/30/23 11:00 40 30 12/30/23 09:45 40 40 12/30/23 07:38 12/30/23 07:29 40 40 12/30/23 06:51 40 40 12/30/23 06:41 60 50 12/30/23 05:10 60 50 12/30/23 04:19 60 50 Laboratory Results Short CBC 12/29/23 12/30/23 Range/Units 22:01 04:24 WBC 15.82 H 17.91 H (4.8-10.8) K/ul Hgb 15.9 14.5 (14.0-18.0) g/dl Hct 47.8 42.4 (42.0-52.0) % Plt Count 226 245 (130-400) K/uL BMP 12/29/23 12/30/23 22:01 04:24 Sodium 142 139 Potassium 3.6 3.9 Chloride 106 108 H Carbon Dioxide 24 22 BUN 19 16 Creatinine 1.09 0.99 Glucose 151 H 252 H Calcium 9.2 8.5 L Liver Function 12/29/23 Range/Units 22:01 Total Bilirubin 0.5 (0.2-1.0) mg/dl AST 15 (13-39) U/L ALT 16 (7-52) U/L Alkaline Phosphatase 38 (34-104) U/L Albumin 4.5 (3.4-5.0) gm/dl Urine 12/29/23 Range/Units 21:54 Urine Color Yellow Urine Appearance Clear (Clear) Urine pH 5.0 (4.5-7.5) Ur Specific [place] 1.041 H (1.000-1.030) Urine Protein Trace H (Negative) Urine Glucose (UA) 3+ H (Negative)
[2023-12-30] MEDS: DOXYCYCLINE HYCLATE 100 MG CAP PO SCH (20:25)
[2023-12-30] MEDS: MONTELUKAST SODIUM 10 MG TABLET PO SCH (20:36)
[2023-12-31 06:29] LABS: Base Excess VBG 0.3 mEq/L; HCO3 VBG 25 mmol/L; Oxygen Saturation VBG 79.1 %; PCO2 VBG 42 mmHg (38-50); PO2 VBG 44 mmHg; pH VBG 7.39 (7.36-7.41)
[2023-12-31 06:41] LABS: Hematocrit (blood only) 41.4 % (42.0-52.0); Hemoglobin 13.7 g/dl (14.0-18.0); Mean Corpuscular Hemoglobin 28.3 pg (25.0-34.0); Mean Corpuscular Hgb Conc 33.1 g/dL (32.0-36.0); Mean Corpuscular Volume 85.5 fL (80.0-100.0); Mean Platelet Volume 9.8 fL (9.4-12.4); Platelet Count 239 K/uL (130-400); RDW Coefficient of Variation 14.6 % (11.5-14.5); RDW Standard Deviation 45.7 fL (36.4-46.3); Red Blood Count 4.84 M/uL (4.70-6.10); White Blood Count 12.25 K/ul (4.8-10.8)
[2023-12-31 06:56] LABS: BUN Creatinine Ratio 22.3 (10-20); Calcium 8.8 mg/dl (8.6-10.3); Creatinine Clr Calc Pharmacy 52.6 ml/min; Est GFR (African American) 80.8 ml/min; Est GFR (Non-African American) 69.7 ml/min; Magnesium 2.5 mg/dl (1.7-2.4); Potassium 3.5 mmol/L (3.5-5.1)
[2023-12-31] MEDS: ACETAMINOPHEN 325 MG TAB PO PRN (08:31)
--- NOTE | 2023-12-31 15:52 | Hospitalist Progress Note ---
Date of Service December 31, 2023 Assessment & Plan (1) Acute hypoxemic respiratory failure: Plan: Acute respiratory failure with hypoxia Acute asthma/interstitial lung disease exacerbation Secondary to influenza infection Chronic steroid dependence --CTA: No evidence of pulmonary embolism. Bilateral mostly dependent consolidation involving all lung lobes. These might represent atelectasis, pneumonia, or a combination of both. -- Normal procalcitonin --Blood culture: Negative to date Continue prednisone, nebs Continue doxycycline Day #2 Continue Tamiflu Continue supplemental oxygen as needed Will consider pulmonary evaluation if no improvement Aspiration precautions Add speech therapy evaluation Less supplemental oxygen requirement today Will need 2 step prior to discharge Clinically improving Acute metabolic encephalopathy Secondary to above Will consider CT head if needed Normal ammonia levels Mental status seem to be back to baseline Diastolic dysfunction Valvular heart disease (moderate , trace AR) Hypertension Hyperlipidemia Continue aspirin, statin, amlodipine, metoprolol, losartan Monitor volume status PHILLIP CPAP noncompliance [employer] for CPAP compliance DM II Hold p.o. medications Continue insulin while hospitalized Monitor BGs GERD Continue PPI Hypothyroidism Continue levothyroxine DVT Px: Lovenox SQ Code Status Full code Admission and Anticipated Discharge Date Admission Date: December 30, 2023 Subjective Patient is seen and examined at bedside Feels a lot better today Dyspnea, cough much improved Sitting in chair during my encounter No new complaints Denies any chest pain, nausea, vomiting, abdominal pain Saturating well on 2 to 3 L supplemental oxygen Review of Systems Review of Systems: All systems reviewed & are unremarkable except as noted in Subjective Physical Exam Physical Exam: Physical Exam: Vitals signs as noted above General Appearance:Obese, Moderately built and nourished, no apparent distress Head: normocephalic, Atraumatic Eyes: normal inspection, EOMI Neck: supple, Trachea midline Respiratory/Chest: Decreased breath sounds, + scattered rhonchi, No accessory muscle use Cardiovascular: S1, S2, + murmur,+Tachycardia Abdomen/GI:Soft, Non tender, Bowel sounds present Extremities/Musculoskeletal:normal inspection, no edema Neurologic/Psych:AAO, grossly no focal neurological deficits Skin: normal color, warm Results & Data Results & Data Vital Signs (Past 12 Hours) Vital Signs Temp Pulse Pulse Resp BP Pulse Ox O2 Del Method 12/31/23 14:51 100 H 12/31/23 13:24 91 H 12/31/23 13:01 90 16 95 Nasal Cannula 06/04/24 11:01 36.7 C 84 19 130/76 94 Nasal Cannula 12/31/23 07:29 36.8 C 93 H 18 139/86 92 Nasal Cannula 12/31/23 07:18 97 H 17 94 Nasal Cannula O2 Flow Rate 12/31/23 14:51 12/31/23 13:24 12/31/23 13:01 3 12/31/23 11:01 12/31/23 07:29 12/31/23 07:18 2 Laboratory Results Short CBC 12/31/23 Range/Units 06:15 WBC 12.25 H (4.8-10.8) K/ul Hgb 13.7 L (14.0-18.0) g/dl Hct 41.4 L (42.0-52.0) % Plt Count 239 (130-400) K/uL BMP 12/31/23 06:15 Sodium 141 Potassium 3.5 Chloride 107 Carbon Dioxide 25 BUN 23 Creatinine 1.03 Glucose 119 H Calcium 8.8
--- NOTE | 2024-01-01 05:36 | Electrocardiogram Report ---
Test Reason : Blood Pressure : / mmHG Vent. Rate : 139 BPM Atrial Rate : 139 BPM P-R Int : 148 ms QRS Dur : 066 ms QT Int : 276 ms P-R-T Axes : 033 010 046 degrees QTc Int : 419 ms Poor data quality, interpretation may be adversely affected Sinus tachycardia Possible Left atrial enlargement Possible Inferior infarct , age undetermined Abnormal ECG When compared with ECG of 27-SEP-2023 13:15, No significant change was found Confirmed by Steve Gates [id number] on 01/01/2024 5:35:37 AM Referred By: REFERRED SELF Confirmed By:Steve Gates
[2024-01-01 06:58] LABS: Hematocrit (blood only) 41.6 % (42.0-52.0); Hemoglobin 13.8 g/dl (14.0-18.0); Mean Corpuscular Hemoglobin 28.2 pg (25.0-34.0); Mean Corpuscular Hgb Conc 33.2 g/dL (32.0-36.0); Mean Corpuscular Volume 85.1 fL (80.0-100.0); Mean Platelet Volume 9.8 fL (9.4-12.4); Platelet Count 248 K/uL (130-400); RDW Coefficient of Variation 14.6 % (11.5-14.5); RDW Standard Deviation 45.7 fL (36.4-46.3); Red Blood Count 4.89 M/uL (4.70-6.10); White Blood Count 10.14 K/ul (4.8-10.8)
[2024-01-01 07:18] LABS: BUN Creatinine Ratio 22.6 (10-20); Calcium 8.8 mg/dl (8.6-10.3); Est GFR (African American) 91.5 ml/min; Est GFR (Non-African American) 78.9 ml/min; Magnesium 2.2 mg/dl (1.7-2.4); Potassium 3.6 mmol/L (3.5-5.1)
[2024-01-01] MEDS: PROMETHAZINE HCL 6.25 MG in SODIUM CHLORIDE 0.9% 50 ML IV PRN (10:54)
--- NOTE | 2024-01-01 17:35 | Hospitalist Progress Note ---
Date of Service January 01, 2024 Assessment & Plan (1) Acute hypoxemic respiratory failure: Plan: Acute respiratory failure with hypoxia Acute asthma/interstitial lung disease exacerbation Secondary to influenza infection Chronic steroid dependence --CTA: No evidence of pulmonary embolism. Bilateral mostly dependent consolidation involving all lung lobes. These might represent atelectasis, pneumonia, or a combination of both. -- Normal procalcitonin --Blood culture: Negative to date Continue prednisone, nebs Continue doxycycline Day #3 Continue Tamiflu Continue supplemental oxygen as needed Will consider pulmonary evaluation if no improvement Aspiration precautions Add speech therapy evaluation Will need 2 step prior to discharge Clinically improving Acute metabolic encephalopathy Secondary to above Will consider CT head if needed Normal ammonia levels Mental status seem to be back to baseline Diastolic dysfunction Valvular heart disease (moderate , trace AR) Hypertension Hyperlipidemia Continue aspirin, statin, amlodipine, metoprolol, losartan Monitor volume status PHILLIP CPAP noncompliance [employer] for CPAP compliance DM II Hold p.o. medications Continue insulin while hospitalized Monitor BGs GERD Continue PPI Hypothyroidism Continue levothyroxine DVT Px: Lovenox SQ Code Status Full code Admission and Anticipated Discharge Date Admission Date: December 30, 2023 Subjective Patient seen in follow up of hypoxia, + Flu Sitting up in chair, in NAD, on suppl. O2 Dyspnea, cough much improved Denies any chest pain, nausea, vomiting, abdominal pain Review of Systems Review of Systems: All systems reviewed & are unremarkable except as noted in Subjective Physical Exam Physical Exam: General Appearance:Obese, Moderately built and nourished, no apparent distress Head: NC/AT Eyes: normal inspection, EOMI Neck: supple Respiratory/Chest:+ scattered rhonchi, No accessory muscle use Cardiovascular: S1, S2, + murmur Abdomen/GI:Soft, Non tender, Bowel sounds present Extremities/Musculoskeletal:normal inspection, no edema Neurologic/Psych:AAO, grossly no focal neurological deficits Skin: normal color, warm Results & Data Results & Data Vital Signs (Past 12 Hours) Vital Signs Temp Pulse Pulse Pulse Resp BP Pulse Ox 01/01/24 15:22 36.8 C 86 20 137/77 94 01/01/24 15:00 88 01/01/24 12:27 92 H 16 92 01/01/24 11:21 36.7 C 85 18 155/92 H 94 01/01/24 09:01 36.6 C 92 H 16 139/78 92 01/01/24 07:30 01/01/24 07:11 84 18 95 01/01/24 07:00 88 O2 Del Method O2 Flow Rate 01/01/24 15:22 Nasal Cannula 2 01/01/24 15:00 01/01/24 12:27 Nasal Cannula 2 01/01/24 11:21 Nasal Cannula 2 01/01/24 09:01 Nasal Cannula 2 01/01/24 07:30 Nasal Cannula 3 01/01/24 07:11 Nasal Cannula 2 01/01/24 07:00 Laboratory Results 01/01/24 01/01/24 01/01/24 Range/Units 16:11 11:12 07:13 WBC (4.8-10.8) K/ul RBC (4.70-6.10) M/uL Hgb (14.0-18.0) g/dl Hct (42.0-52.0) % MCV (80.0-100.0) fL MCH (25.0-34.0) pg MCHC (32.0-36.0) g/dL RDW Std Deviation (36.4-46.3) fL RDW Coeff of Zainab (11.5-14.5) % Plt Count (130-400) K/uL MPV (9.4-12.4) fL Sodium (136-145) mmol/L Potassium (3.5-5.1) mmol/L Chloride (98-107) mmol/L Carbon Dioxide (21-32) mmol/L Anion Gap (3-11) BUN (6-23) mg/dl Creatinine (0.6-1.4) mg/dl Est Cr Clr Drug Dosing ml/min Est GFR ( Amer) ml/min Est GFR (Non-Af Amer) ml/min BUN/Creatinine Ratio (10-20) Glucose (70-99(Fasting)) mg/dl POC Glucose 185 H 125 H 91 (70-99) mg/dl Calcium (8.6-10.3) mg/dl Magnesium (1.7-2.4) mg/dl 01/01/24 12/31/23 Range/Units 06:35 20:25 WBC 10.14 (4.8-10.8) K/ul RBC 4.89 (4.70-6.10) M/uL Hgb 13.8 L (14.0-18.0) g/dl Hct 41.6 L (42.0-52.0) % MCV 85.1 (80.0-100.0) fL MCH 28.2 (25.0-34.0) pg MCHC 33.2 (32.0-36.0) g/dL RDW Std Deviation 45.7 (36.4-46.3) fL RDW Coeff of Zainab 14.6 H (11.5-14.5) % Plt Count 248 (130-400) K/uL MPV 9.8 (9.4-12.4) fL Sodium 140 (136-145) mmol/L Potassium 3.6 (3.5-5.1) mmol/L Chloride 106 (98-107) mmol/L Carbon Dioxide 26 (21-32) mmol/L Anion Gap 8 (3-11) BUN 21 (6-23) mg/dl Creatinine 0.93 (0.6-1.4) mg/dl Est Cr Clr Drug Dosing 58.0 ml/min Est GFR ( Amer) 91.5 ml/min Est GFR (Non-Af Amer) 78.9 ml/min BUN/Creatinine Ratio 22.6 H (10-20) Glucose 96 (70-99(Fasting)) mg/dl POC Glucose 193 H (70-99) mg/dl Calcium 8.8 (8.6-10.3) mg/dl Magnesium 2.2 (1.7-2.4) mg/dl Medications Administered Current Inpatient Medications Acetaminophen (Acetaminophen 325 Mg Tab) 650 mg PO QID PRN PRN Reason: pain/fever Stop: 01/29/24 01:58 Last Admin: 01/01/24 13:50 Dose: 650 mg Acetaminophen (Acetaminophen 325 Mg Tab) 650 mg PO Q4H PRN PRN Reason: Pain or Fever Stop: 01/29/24 04:10 Last Admin: 12/31/23 16:03 Dose: 650 mg Amlodipine Besylate (Amlodipine Besylate 5 Mg Tab) 5 mg PO DAILY [facility] Stop: 01/29/24 08:59 Last Admin: 01/01/24 08:32 Dose: 5 mg Aspirin (Aspirin 81 Mg Ectab) 81 mg PO QAM [facility] Stop: 01/29/24 08:59 Last Admin: 01/01/24 08:32 Dose: 81 mg Atorvastatin Calcium (Atorvastatin 20 Mg Tab) 20 mg PO DAILY [facility] Stop: 01/29/24 08:59 Last Admin: 01/01/24 08:33 Dose: 20 mg Dextrose (Dextrose 50% 50 Ml Syringe) 25 - 50 ml IV UD PRN; Protocol PRN Reason: Hypoglycemia Protocol Stop: 01/29/24 01:57 Doxycycline Hyclate (Doxycycline Hyclate 100 Mg Cap) 100 mg PO BID [facility] Stop: 01/06/24 20:59 Last Admin: 01/01/24 08:33 Dose: 100 mg Enoxaparin Sodium (Enoxaparin Inj 40 Mg/0.4 Ml Syr) 40 mg SQ QAM [facility] Stop: 01/29/24 08:59 Last Admin: 01/01/24 08:33 Dose: 40 mg Fluticasone Furoate (Fluticasone Furoate 100mcg 14 Puffs/Inhaler) 1 puffs INH DAILY [facility] Stop: 01/29/24 08:59 Fluticasone Propionate (Fluticasone Propionate Na Spr 16 Gm Btl) 2 sprays NA DAILY [facility] Stop: 01/29/24 08:59 Last Admin: 01/01/24 08:34 Dose: 2 sprays Glucagon (Glucagon For Inj 1 Mg Vial) 1 mg SQ UD PRN; Protocol PRN Reason: Hypoglycemia Protocol Stop: 01/29/24 01:57 Glucose (Glucose 40% Gel 15 Gm Tube) 15 - 30 gm PO UD PRN; Protocol PRN Reason: Hypoglycemia Protocol Stop: 01/29/24 01:57 Glucose (Glucose 10 Tab/Tube) 4 - 8 tab PO UD PRN; Protocol PRN Reason: Hypoglycemia Treatment Stop: 01/29/24 01:57 Promethazine HCl 6.25 mg/ (Sodium Chloride) 50.25 mls @ 201 mls/hr IV Q6H PRN PRN Reason: Nausea And Vomiting Stop: 01/29/24 01:58 Last Infusion: 01/01/24 11:24 Dose: Infused Insulin Aspart (Insulin Aspart Per Unit Charge) 0 units SC ACHS [facility] Stop: 01/29/24 07:29 Last Admin: 01/01/24 17:00 Dose: 4 units Insulin Glargine (Lantus Per Unit Charge) 5 units SQ BID [facility] Stop: 01/29/24 20:59 Last Admin: 01/01/24 08:40 Dose: 5 units Ipratropium [place] (Ipratropium [place] Neb Soln 0.02% 0.5mg/2.5ml Vial) 0.5 mg INH Q6R [facility] Stop: 01/29/24 06:59 Last Admin: 01/01/24 12:27 Dose: 0.5 mg Levalbuterol HCl (Levalbuterol 1.25 Mg/3 Ml Neb) 1.25 mg NEB Q6R [facility] Stop: 01/29/24 06:59 Last Admin: 01/01/24 12:27 Dose: 1.25 mg Levothyroxine Sodium (Levothyroxine Sodium 100 Mcg Tablet) 100 mcg PO DAILYBB [facility] Stop: 01/29/24 06:29 Last Admin: 01/01/24 05:37 Dose: 100 mcg Losartan Potassium (Losartan Potassium 25 Mg Tab) 25 mg PO DAILY [facility] Stop: 01/29/24 08:59 Last Admin: 01/01/24 08:34 Dose: 25 mg Metoprolol Succinate (Metoprolol Succ 25mg Ext Rel Tab) 12.5 mg PO QAM [facility] Stop: 01/29/24 08:59 Last Admin: 01/01/24 08:34 Dose: 12.5 mg Miscellaneous (Carbohydrates For Hypoglycemia ) 15 - 30 gm PO UD PRN PRN Reason: Hypoglycemia Protocol Stop: 01/29/24 01:57 Montelukast Sodium (Montelukast Sodium 10 Mg Tablet) 10 mg PO HS [facility] Stop: 01/29/24 20:59 Last Admin: 12/31/23 20:34 Dose: 10 mg Oseltamivir Phosphate (Oseltamivir Phosphate Susp 30 Mg/5 Ml Udp) 30 mg PO BID [facility]; Protocol Stop: 01/04/24 08:59 Last Admin: 01/01/24 09:09 Dose: 30 mg Pantoprazole Sodium (Pantoprazole 40 Mg Tab) 40 mg PO DAILY [facility] Stop: 01/29/24 08:59 Last Admin: 01/01/24 08:36 Dose: 40 mg Prednisone (Prednisone 20 Mg Tab) 40 mg PO DAILY [facility] Stop: 01/03/24 08:59 Last Admin: 01/01/24 08:36 Dose: 40 mg
[2024-01-02 06:37] LABS: Hematocrit (blood only) 43.1 % (42.0-52.0); Hemoglobin 14.4 g/dl (14.0-18.0); Mean Corpuscular Hemoglobin 28.3 pg (25.0-34.0); Mean Corpuscular Hgb Conc 33.4 g/dL (32.0-36.0); Mean Corpuscular Volume 84.7 fL (80.0-100.0); Mean Platelet Volume 9.6 fL (9.4-12.4); Platelet Count 256 K/uL (130-400); RDW Coefficient of Variation 14.5 % (11.5-14.5); RDW Standard Deviation 44.4 fL (36.4-46.3); Red Blood Count 5.09 M/uL (4.70-6.10); White Blood Count 9.31 K/ul (4.8-10.8)
[2024-01-02 07:03] LABS: BUN Creatinine Ratio 20.5 (10-20); Calcium 9.1 mg/dl (8.6-10.3); Creatinine Clr Calc Pharmacy 61.3 ml/min; Est GFR (Non-African American) 82.9 ml/min; Magnesium 2.1 mg/dl (1.7-2.4); Phosphorus 3.1 mg/dl (2.5-4.9); Potassium 3.4 mmol/L (3.5-5.1)
--- NOTE | 2024-01-02 09:07 | Hospitalist Progress Note ---
Date of Service January 02, 2024 Assessment & Plan (1) Acute hypoxemic respiratory failure: Plan: Acute respiratory failure with hypoxia Acute asthma/interstitial lung disease exacerbation Secondary to influenza infection Chronic steroid dependence --CTA: No evidence of pulmonary embolism. Bilateral mostly dependent consolidation involving all lung lobes. These might represent atelectasis, pneumonia, or a combination of both. -- Normal procalcitonin --Blood culture: Negative to date Continue prednisone, nebs Continue doxycycline Day #4 Continue Tamiflu Continue supplemental oxygen as needed Will consider pulmonary evaluation if no improvement Aspiration precautions Add speech therapy evaluation Will need 2 step prior to discharge Clinically improving Acute metabolic encephalopathy Secondary to above Will consider CT head if needed Normal ammonia levels Mental status back to baseline Diastolic dysfunction Valvular heart disease (moderate , trace AR) Hypertension Hyperlipidemia Continue aspirin, statin, amlodipine, metoprolol, losartan Monitor volume status PHILLIP CPAP noncompliance 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 medications Continue insulin while hospitalized Monitor BGs GERD Continue PPI Hypothyroidism Continue levothyroxine DVT Px: Lovenox SQ Code Status Full code Admission and Anticipated Discharge Date Admission Date: December 30, 2023 Subjective Patient seen in follow up of hypoxia, + Flu Sitting up in chair, in NAD, on suppl. O2 Dyspnea, cough improved Denies any chest pain, nausea, vomiting, abdominal pain Encouraged IS, flutter valve Discussed w/RN at the bedside Review of Systems Review of Systems: All systems reviewed & are unremarkable except as noted in Subjective Physical Exam Physical Exam: General Appearance:Obese, Moderately built and nourished, no apparent distress, on suppl. O2 Head: NC/AT Eyes: normal inspection, EOMI Neck: supple Respiratory/Chest:+ scattered rhonchi, No accessory muscle use Cardiovascular: S1, S2, + murmur Abdomen/GI:Soft, Non tender, Bowel sounds present Extremities/Musculoskeletal:normal inspection, no edema Neurologic/Psych:AAO, grossly no focal neurological deficits Skin: normal color, warm Results & Data Results & Data Vital Signs (Past 12 Hours) Vital Signs Temp Pulse Pulse Resp BP Pulse Ox O2 Del Method 01/02/24 08:29 36.7 C 92 H 18 142/79 H 94 Nasal Cannula 01/02/24 07:22 72 16 96 Nasal Cannula 01/02/24 03:30 36.5 C 85 22 153/88 H 94 Nasal Cannula 01/02/24 01:53 94 H 18 90 Nasal Cannula 01/01/24 23:57 36.6 C 90 20 142/87 H 95 Nasal Cannula 01/01/24 22:04 Nasal Cannula O2 Flow Rate 01/02/24 08:29 2.0 01/02/24 07:22 2 01/02/24 03:30 01/02/24 01:53 2 01/01/24 23:57 01/01/24 22:04 3 Laboratory Results 01/02/24 01/02/24 01/01/24 Range/Units 07:30 06:12 20:03 WBC 9.31 (4.8-10.8) K/ul RBC 5.09 (4.70-6.10) M/uL Hgb 14.4 (14.0-18.0) g/dl Hct 43.1 (42.0-52.0) % MCV 84.7 (80.0-100.0) fL MCH 28.3 (25.0-34.0) pg MCHC 33.4 (32.0-36.0) g/dL RDW Std Deviation 44.4 (36.4-46.3) fL RDW Coeff of Zainab 14.5 (11.5-14.5) % Plt Count 256 (130-400) K/uL MPV 9.6 (9.4-12.4) fL Sodium 139 (136-145) mmol/L Potassium 3.4 L (3.5-5.1) mmol/L Chloride 104 (98-107) mmol/L Carbon Dioxide 26 (21-32) mmol/L Anion Gap 9 (3-11) BUN 18 (6-23) mg/dl Creatinine 0.88 (0.6-1.4) mg/dl Est Cr Clr Drug Dosing 61.3 ml/min Est GFR ( Amer) 96.0 ml/min Est GFR (Non-Af Amer) 82.9 ml/min BUN/Creatinine Ratio 20.5 H (10-20) Glucose 93 (70-99(Fasting)) mg/dl POC Glucose 92 203 H (70-99) mg/dl Calcium 9.1 (8.6-10.3) mg/dl Phosphorus 3.1 (2.5-4.9) mg/dl Magnesium 2.1 (1.7-2.4) mg/dl 01/01/24 01/01/24 Range/Units 16:11 11:12 WBC (4.8-10.8) K/ul RBC (4.70-6.10) M/uL Hgb (14.0-18.0) g/dl Hct (42.0-52.0) % MCV (80.0-100.0) fL MCH (25.0-34.0) pg MCHC (32.0-36.0) g/dL RDW Std Deviation (36.4-46.3) fL RDW Coeff of Zainab (11.5-14.5) % Plt Count (130-400) K/uL MPV (9.4-12.4) fL Sodium (136-145) mmol/L Potassium (3.5-5.1) mmol/L Chloride (98-107) mmol/L Carbon Dioxide (21-32) mmol/L Anion Gap (3-11) BUN (6-23) mg/dl Creatinine (0.6-1.4) mg/dl Est Cr Clr Drug Dosing ml/min Est GFR ( Amer) ml/min Est GFR (Non-Af Amer) ml/min BUN/Creatinine Ratio (10-20) Glucose (70-99(Fasting)) mg/dl POC Glucose 185 H 125 H (70-99) mg/dl Calcium (8.6-10.3) mg/dl Phosphorus (2.5-4.9) mg/dl Magnesium (1.7-2.4) mg/dl Medications Administered Current Inpatient Medications Acetaminophen (Acetaminophen 325 Mg Tab) 650 mg PO QID PRN PRN Reason: pain/fever Stop: 01/29/24 01:58 Last Admin: 01/01/24 13:50 Dose: 650 mg Acetaminophen (Acetaminophen 325 Mg Tab) 650 mg PO Q4H PRN PRN Reason: Pain or Fever Stop: 01/29/24 04:10 Last Admin: 12/31/23 16:03 Dose: 650 mg Amlodipine Besylate (Amlodipine Besylate 5 Mg Tab) 5 mg PO DAILY [facility] Stop: 01/29/24 08:59 Last Admin: 01/02/24 08:13 Dose: 5 mg Aspirin (Aspirin 81 Mg Ectab) 81 mg PO QAM [facility] Stop: 01/29/24 08:59 Last Admin: 01/02/24 08:14 Dose: 81 mg Atorvastatin Calcium (Atorvastatin 20 Mg Tab) 20 mg PO DAILY [facility] Stop: 01/29/24 08:59 Last Admin: 01/02/24 08:13 Dose: 20 mg Dextrose (Dextrose 50% 50 Ml Syringe) 25 - 50 ml IV UD PRN; Protocol PRN Reason: Hypoglycemia Protocol Stop: 01/29/24 01:57 Doxycycline Hyclate (Doxycycline Hyclate 100 Mg Cap) 100 mg PO BID [facility] Stop: 01/06/24 20:59 Last Admin: 01/02/24 08:13 Dose: 100 mg Enoxaparin Sodium (Enoxaparin Inj 40 Mg/0.4 Ml Syr) 40 mg SQ QAM [facility] Stop: 01/29/24 08:59 Last Admin: 01/02/24 08:15 Dose: 40 mg Fluticasone Furoate (Fluticasone Furoate 100mcg 14 Puffs/Inhaler) 1 puffs INH DAILY [facility] Stop: 01/29/24 08:59 Fluticasone Propionate (Fluticasone Propionate Na Spr 16 Gm Btl) 2 sprays NA DAILY [facility] Stop: 01/29/24 08:59 Last Admin: 01/02/24 08:14 Dose: 2 sprays Glucagon (Glucagon For Inj 1 Mg Vial) 1 mg SQ UD PRN; Protocol PRN Reason: Hypoglycemia Protocol Stop: 01/29/24 01:57 Glucose (Glucose 40% Gel 15 Gm Tube) 15 - 30 gm PO UD PRN; Protocol PRN Reason: Hypoglycemia Protocol Stop: 01/29/24 01:57 Glucose (Glucose 10 Tab/Tube) 4 - 8 tab PO UD PRN; Protocol PRN Reason: Hypoglycemia Treatment Stop: 01/29/24 01:57 Guaifenesin (Guaifenesin 600 Mg Tabcr) 600 mg PO Q12 [facility] Stop: 02/01/24 09:14 Promethazine HCl 6.25 mg/ (Sodium Chloride) 50.25 mls @ 201 mls/hr IV Q6H PRN PRN Reason: Nausea And Vomiting Stop: 01/29/24 01:58 Last Infusion: 01/01/24 11:24 Dose: Infused Insulin Aspart (Insulin Aspart Per Unit Charge) 0 units SC ACHS [facility] Stop: 01/29/24 07:29 Last Admin: 01/02/24 08:14 Dose: Not Given Insulin Glargine (Lantus Per Unit Charge) 5 units SQ BID [facility] Stop: 01/29/24 20:59 Last Admin: 01/02/24 08:11 Dose: 5 units Ipratropium [place] (Ipratropium [place] Neb Soln 0.02% 0.5mg/2.5ml Vial) 0.5 mg INH Q6R [facility] Stop: 01/29/24 06:59 Last Admin: 01/02/24 07:22 Dose: 0.5 mg Levalbuterol HCl (Levalbuterol 1.25 Mg/3 Ml Neb) 1.25 mg NEB Q6R [facility] Stop: 01/29/24 06:59 Last Admin: 01/02/24 07:22 Dose: 1.25 mg Levothyroxine Sodium (Levothyroxine Sodium 100 Mcg Tablet) 100 mcg PO DAILYBB [facility] Stop: 01/29/24 06:29 Last Admin: 01/02/24 05:55 Dose: 100 mcg Losartan Potassium (Losartan Potassium 25 Mg Tab) 25 mg PO DAILY [facility] Stop: 01/29/24 08:59 Last Admin: 01/02/24 08:14 Dose: 25 mg Metoprolol Succinate (Metoprolol Succ 25mg Ext Rel Tab) 12.5 mg PO QAM [facility] Stop: 01/29/24 08:59 Last Admin: 01/02/24 08:13 Dose: 12.5 mg Miscellaneous (Carbohydrates For Hypoglycemia ) 15 - 30 gm PO UD PRN PRN Reason: Hypoglycemia Protocol Stop: 01/29/24 01:57 Montelukast Sodium (Montelukast Sodium 10 Mg Tablet) 10 mg PO HS [facility] Stop: 01/29/24 20:59 Last Admin: 01/01/24 20:10 Dose: 10 mg Oseltamivir Phosphate (Oseltamivir Phosphate Susp 30 Mg/5 Ml Udp) 30 mg PO BID [facility]; Protocol Stop: 01/04/24 08:59 Last Admin: 01/02/24 08:16 Dose: 30 mg Pantoprazole Sodium (Pantoprazole 40 Mg Tab) 40 mg PO DAILY [facility] Stop: 01/29/24 08:59 Last Admin: 01/02/24 08:14 Dose: 40 mg Prednisone (Prednisone 20 Mg Tab) 40 mg PO DAILY [facility] Stop: 01/03/24 08:59 Last Admin: 01/02/24 08:12 Dose: 40 mg
[2024-01-02] MEDS: guaiFENesin 600 MG TABCR PO SCH (10:02)
[2024-01-02] MEDS: POTASSIUM CHLORIDE CRTAB 20 MEQ TABCR PO STA (14:00)
[2024-01-02] MEDS: OSELTAMIVIR PHOSPHATE 75 MG CAP PO SCH (19:58)
[2024-01-03 05:58] LABS: Hematocrit (blood only) 42.4 % (42.0-52.0); Mean Corpuscular Hemoglobin 27.8 pg (25.0-34.0); Mean Corpuscular Volume 84.3 fL (80.0-100.0); Mean Platelet Volume 9.5 fL (9.4-12.4); Platelet Count 279 K/uL (130-400); RDW Coefficient of Variation 14.1 % (11.5-14.5); RDW Standard Deviation 43.3 fL (36.4-46.3); Red Blood Count 5.03 M/uL (4.70-6.10); White Blood Count 7.69 K/ul (4.8-10.8)
[2024-01-03 06:14] LABS: Calcium 9.2 mg/dl (8.6-10.3); Potassium 3.5 mmol/L (3.5-5.1)
[2024-01-03 06:20] LABS: BUN Creatinine Ratio 24.5 (10-20); Creatinine Clr Calc Pharmacy 57.4 ml/min; Est GFR (African American) 90.3 ml/min; Est GFR (Non-African American) 77.9 ml/min; Phosphorus 3.7 mg/dl (2.5-4.9)
[2024-01-03] MEDS: POTASSIUM CHLORIDE CRTAB 20 MEQ TABCR PO STA (13:57)
[2024-01-03] MEDS: OSELTAMIVIR PHOSPHATE SUSP 30 MG/5 ML UDP PO ONE (13:57)
--- NOTE | 2024-01-03 13:58 | Discharge Summary ---
Date of Service January 03, 2024 Admission HPI Per Admitting Provider History obtained from patient, family, and records. Limited history from patient secondary to confusion. Medical history significant for diastolic dysfunction (EF 60 to 65%, TTE 2022), asthma/RLD as per records on chronic steroid Rx, valvular heart disease (moderate , trace AR), PHILLIP /CPAP noncompliance, hypertension, hyperlipidemia, DM2 on oral medications, GERD, hypothyroidism. Last confinement June 2023 for asthma exacerbation secondary to influenza illness. Last night, patient noted shortness of breath with mild cough symptoms. No chest pain. Denies fluid retention. Not sure about sick contacts. No aspiration. Patient somewhat more confused than usual upon arrival at the ER as per . Lowest O2 sats of 80s documented at the ER. Patient could not tolerate BiPAP. Currently on high flow nasal cannula. 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 failure w/ hypoxia due to influenza infection Discharge Exam General Appearance:Obese, Moderately built and nourished, no apparent distress, on suppl. O2 Head: NC/AT Eyes: normal inspection, EOMI Neck: supple Respiratory/Chest:+ scattered rhonchi (improved), No accessory muscle use Cardiovascular: S1, S2, + murmur Abdomen/GI:Soft, Non tender, Bowel sounds present Extremities/Musculoskeletal:normal inspection, no edema Neurologic/Psych:AAO, grossly no focal neurological deficits Skin: normal color, warm Discharge Data Allergies Allergy/AdvReac Type Severity Reaction Status Date / Time cat dander Allergy Unknown watery eyes Verified 12/30/23 00:53 No Known Drug Allergies Allergy Unknown . Verified 12/30/23 00:53 SUJATHA Inhibitors AdvReac Mild Cough Verified 12/30/23 00:53 Consultations 12/30/23 00:31 ED Decision to Admit Stat Ordered Studies 12/29/23 22:23 CT abd pelvis IV con only Stat FINDINGS: Limitations: Motion. Lung bases: Reported separately. ABDOMEN: Liver: Unremarkable. No mass. Gallbladder and bile ducts: Small gallstones. No evidence of cholecystitis. No ductal dilation. Pancreas: Unremarkable. No mass. No ductal dilation. Spleen: Unremarkable. No splenomegaly. Adrenals: Unremarkable. No mass. Kidneys and ureters: Symmetric renal enhancement. No hydronephrosis. Subcentimeter simple cyst in the left kidney; no further follow-up required. Stomach and bowel: Unremarkable. No bowel obstruction or mucosal thickening. PELVIS: Appendix: No evidence of appendicitis. Bladder: Unremarkable. No mass. Reproductive: Prostatomegaly. ABDOMEN and PELVIS: Intraperitoneal space: Unremarkable. No free fluid or free air. Bones/joints: No acute fracture or dislocation. Severe disc degeneration L5-S1. Bilateral pars defects at L5 with grade 1 spondylolisthesis. Soft tissues: Unremarkable. Vasculature: Atherosclerosis. No aortic aneurysm. Lymph nodes: Unremarkable. No enlarged lymph nodes. IMPRESSION: No acute findings in the abdomen or pelvis. CT angio chest PE protocol Stat FINDINGS: Pulmonary arteries: Adequate pulmonary artery opacification. No pulmonary embolism. Aorta: No acute findings. No aortic aneurysm or dissection. Lungs: Bilateral mostly dependent consolidation involving all lung lobes. Pleural space: Unremarkable. No pleural effusion or pneumothorax. Heart: Coronary artery atherosclerosis. No cardiomegaly, RV strain, or pericardial effusion. Bones/joints: No acute fracture. No dislocation. Soft tissues: Unremarkable. Lymph nodes: Unremarkable. No adenopathy by size criteria. IMPRESSION: 1. No evidence of pulmonary embolism. 2. Bilateral mostly dependent consolidation involving all lung lobes. These might represent atelectasis, pneumonia, or a combination of both. Hospital Course (1) Acute hypoxemic respiratory failure: Acute respiratory failure with hypoxia Acute asthma/interstitial lung disease exacerbation Secondary to influenza infection Chronic steroid dependence --CTA: No evidence of pulmonary embolism. Bilateral mostly dependent consolidation involving all lung lobes. These might represent atelectasis, pneumonia, or a combination of both. -- Normal procalcitonin --Blood culture: Negative to date Continue prednisone, nebs Continue doxycycline Continue Tamiflu - to be finished on 6/7/24 Continue supplemental oxygen as needed - 2 step obtained - pt needs 2L cont. Clinically improved and wishes to be discharged home today Acute metabolic encephalopathy Secondary to above Normal ammonia levels Mental status back to baseline Diastolic dysfunction Valvular heart disease (moderate , trace AR) Hypertension Hyperlipidemia Continue aspirin, statin, amlodipine, metoprolol, losartan Monitor volume status PHILLIP CPAP noncompliance Collar Pointer for CPAP compliance DM II Hold p.o. medications Continue insulin while hospitalized Monitor BGs GERD Continue PPI Hypothyroidism Continue levothyroxine Total Time Total Time Spent Total Time Spent (In Minutes): 40 Discharge Plan Discharge Items Patient Disposition: Home - Self-Care Reason For Visit: RESP FAILURE, TACHY Discharge Diagnosis: Acute hypoxic resp. failure w/ hypoxia due to influenza infection Activity: Per Instructions section Non-emergency contact: Primary Care Provider and Ambulatory Analyst Call non-emergency contact if: you have any medication questions and your symptoms worsen Follow-up/Referrals: Enrico Mccauley MD [Primary Care Provider] - (Date & Time 01/10/2024 11:00 AM Provider Enrico Mccauley MD Department [facility] ) Diet: Carb Consistent or DM2 and Heart Healthy Diet Texture: Dental soft (bite-sized) Addtl Attending Provider Instructions: Follow up with your primary care doctor and insurance account specialist (lung doctor). Finish antibiotic treatment as prescribed. Also continue taking guaifenesin. Continue using flutter valve and incentive spirometer. Use supplemental oxygen 2L continuously. Pending Studies at Discharge: Yes Studies:: final blood cultx results Stand-Alone Forms: My [facility], Smoking Cessation Medications and DC Order Prescriptions: New doxycycline hyclate 100 mg Capsule 100 mg PO BID 4 Days Qty: 8 0RF guaifenesin [Mucinex] 600 mg Tablet Extended Release 12hr 600 mg PO Q12 10 Days Qty: 20 0RF Continued atorvastatin 20 mg tablet 20 mg PO DAILY ipratropium-albuterol 0.5 mg-3 mg(2.5 mg base)/3 mL solution for nebulization 3 ml INHALATION Q6H PRN (Reason: Shortness Of Breath Or Wheezing) sodium chloride 3 % solution for nebulization 4 ml INHALATION BID prednisone 5 mg tablet 5 mg PO DAILY Hold Instructions: Resume on 08/05/23. amlodipine 5 mg tablet 5 mg PO DAILY levothyroxine 100 mcg tablet 100 mcg PO DAILY losartan 25 mg tablet 25 mg PO DAILY mometasone 50 mcg/actuation spray,non-aerosol 2 spray INTRANASAL DAILY omeprazole 20 mg capsule,delayed release(DR/EC) 20 mg PO DAILY montelukast 10 mg tablet 10 mg PO HS albuterol sulfate 90 mcg/actuation HFA aerosol inhaler 2 puff INHALATION Q4H PRN (Reason: sob) glipizide 5 mg tablet 5 mg PO BID doxazosin 2 mg tablet 2 mg PO HS tiotropium bromide 18 mcg capsule, w/inhalation device 18 mcg INHALATION DAILY Arnuity Ellipta 100 mcg/actuation blister with device 1 inh INHALATION DAILY metoprolol succinate 25 mg Tablet Extended Release 24 Hr 12.5 mg PO QAM 30 Days Qty: 15 1RF aspirin 81 mg Tablet,Delayed Release (Dr/Ec) 81 mg PO QAM 30 Days Qty: 30 1RF Rx Instructions: always take with a full stomach Jardiance 25 mg tablet 25 mg PO DAILY Xolair 150 mg/mL syringe 150 mg SUBCUT .QMONTH Discharge Orders: Discharge Order (Routine); Ordered 01/03/24 Ordered By: Paulie Witt Admission Data Admit Date/Time: 12/30/23 01:55 Attending Provider: Paulie Witt Admit Provider: Luis Fernando Pagan Primary Care Provider: Enrico Mccauley Other Providers: Luis Fernando Pagan; Luis Delgado
[2024-01-03] MEDS ORDERED: OSELTAMIVIR PHOSPHATE SUSP 30 MG/5 ML UDP PO ONE (21:00)
== END 2024-01-03 15:02 | disposition home or self-care (01) | DRG 193 ==
LOC: ED 21:28 → EDINP 12-30 01:55 → SUATTDRO 12-30 01:55 → 2E 12-30 04:10
DX: N40.0 Benign prostatic hyperplasia without lower urinary tract symptoms; J96.01 Acute respiratory failure with hypoxia; J84.9 Interstitial pulmonary disease, unspecified; J10.1 Influenza due to other identified influenza virus with other respiratory manifestations; Z79.890 Hormone replacement therapy; G47.33 Obstructive sleep apnea (adult) (pediatric); K21.9 Gastro-esophageal reflux disease without esophagitis; I35.0 Nonrheumatic aortic (valve) stenosis; E66.9 Obesity, unspecified; I10 Essential (primary) hypertension; J45.901 Unspecified asthma with (acute) exacerbation; G93.41 Metabolic encephalopathy; E78.5 Hyperlipidemia, unspecified; Z79.52 Long term (current) use of systemic steroids; Z79.82 Long term (current) use of aspirin; E11.9 Type 2 diabetes mellitus without complications; E03.9 Hypothyroidism, unspecified

== ENCOUNTER 2024-06-19 19:46 | Inpatient (IN) ==
--- NOTE | 2024-06-19 20:04 | Emergency Department Note ---
Impression & Plan Acute hypoxemic respiratory failure, Multifocal pneumonia, COVID-19, Elevated lactic acid level, Non-ST elevation CA (NSTEMI), Acute dyspnea ED Provider Note HISTORY OF PRESENT ILLNESS: Patient is a 78-year-old male presenting with shortness of breath. Patient wears 2 L nasal cannula at baseline at home for his history of asthma. He is currently on a course of doxycycline and a prednisone taper for presumed pneumonia, per . Patient has been short of breath progressively worse throughout the day today. reports that she increase his oxygen to 2-1/2 and he was still saturating in the upper 80s. States that he would get very short of breath and hypoxic with any sort of ambulation. Reports that he went to the bathroom and was very winded coming back to his chair and they checked his saturations and they were in the 70s. Given patient's worsening condition, they presented to the emergency department. Patient has had a nonproductive cough over the last few days. Denies any fevers. He is not on any anticoagulation. Denies any DVT or PE history. Denies any history of cardiac stents. He is denying any chest pain. He just reports he feels very short of breath. He denies any abdominal pain, nausea or vomiting. He is currently on 20 mg of prednisone daily on his prednisone taper. ROS: as above PHYSICAL EXAM: Constitutional: Patient appears in mild distress. HENT: Head: Normocephalic and atraumatic. Eyes: EOMI, PERRL Mouth/Throat: Mucous membranes moist. Neck: Trachea midline. Neck supple. Cardiovascular: Tachycardic with regular rhythm. No murmurs, rubs or gallops. Intact distal pulses. Pulmonary/Chest: Patient is conversationally dyspneic in mild respiratory distress. He has diffuse wheezes throughout all lung barros. He is saturating in the low 80s on nasal cannula and was transition to 15 L nonrebreather. Saturations improved to 90% Abdominal: Abdomen soft, no tenderness, rebound or guarding. Musculoskeletal: No edema, tenderness or deformity noted. Skin: Warm and dry. No rash, erythema, pallor or cyanosis Psychiatric: Appropriate mood and affect for situation. Neurological: Alert and keenly responsive. CN II-XII grossly intact, moving all extremities equally and fully. MDM: - Vitals signs showed hypertension, tachypnea, hypoxia and tachycardia. Patient was placed on 15L non-rebreather on arrival to evaluation room. - History obtained via patient and patient's , given patient's conversational dyspnea. History as above. - Chronic conditions affecting care: DM-2; HTN; HLD; GERD; asthma (on 2L NC chronically); hypothyroidism; aortic stenosis - Differential diagnoses include, but are not limited to: Congestive heart failure; acute coronary syndrome; COPD/asthma exacerbation; pulmonary edema; pulmonary embolism; pneumonia; pneumothorax; viral syndrome - Order placed for continuous cardiac monitoring. At this time, monitor showed rate of 95 bpm with normal sinus rhythm, per my interpretation. - External medical records reviewed. Discharge summary dated 01/03/2024 was reviewed. Patient was admitted at that time for acute hypoxic respiratory failure with hypoxia secondary to influenza infection. - EKG interpreted by myself showed normal sinus rhythm. Rate tachycardic at 101 bpm. QT 338. No acute ischemic changes. Noted to have some PVCs. - Laboratory workup interpreted by myself showed normal WBC; normal BNP; stable electrolytes; elevated anion gap (17); hyperglycemia (glucose 214); elevated lactate (3.2); normal liver function; elevated troponin (63.5); normal procalcitonin - Blood cultures obtained - Patient transitioned from non-rebreather with some improvement in his breathing status. It was recommended that we place him on BiPAP, but the patient declined and stated he cannot tolerate BiPAP secondary to claustrophobia and anxiety. He does appear to have saturations of 91 to 92% on high flow nasal cannula. He was given a continuous, hour-long DuoNeb treatment and 1 g of IV magnesium for his profound wheezing. Also given 60 mg of IV Solu-Medrol and 20 mg IV Pepcid. - Patient given 500 cc NS for hydration. Given IV vancomycin and cefepime empirically given recent pneumonia and treatment with doxycycline. - Viral respiratory panel positive for COVID-19. - CXR shows bilateral, multifocal pneumonia, per my interpretation. - CT PE negative for PE per radiology but noted to have extensive patchy irregular groundglass opacities diffusely throughout the lungs, most prominent in the right lung apex consistent with pneumonia. - NSTEMI likely type II in etiology from patient's respiratory distress. He is chest pain free in ER. - On reassessment at 22:20, patient appears more comfortable and his wheezes have improved. He is complaining of heartburn sensation in the middle of his chest. Repeat EKG obtained at 2222 and interpreted by myself showed normal sinus rhythm. Rate tachycardic at 106 bpm. QT 346. No acute ischemic changes. - Discussion was had with business case analyst about patient's case and need for admission - Hospitalist, Dr. Bauer, consulted for admission - Patient admitted to [facility] service for further evaluation and management. I have personally spent 63 minutes of critical care time in the direct management of this patient. This includes bedside care, interpretation of diagnostic studies, and testing, discussion with consultants, patient, and family members, and other required patient management activities. This 63 minutes is in excess of all separately billable procedures. ASSESSMENT AND PLAN: Diagnosis: acute hypoxic respiratory failure; NSTEMI; multifocal pneumonia; COVID-19; elevated lactic acid level; acute dyspnea Plan: admit Past Med/Surg History Problem List (Updated 06/19/24 @ 22:18 by Aviva Michelle MD) Acute dyspnea (Acute) Non-ST elevation CA (NSTEMI) (Acute) Elevated lactic acid level (Acute) COVID-19 (Acute) Multifocal pneumonia (Acute) Acute hypoxemic respiratory failure (Acute) Acute hypoxemic respiratory failure Hypoxia (Acute) Aortic stenosis, moderate Bronchiectasis Asthma exacerbation Shortness of breath (Acute) Influenza A (Acute) Acute hypoxic respiratory failure (Acute) Obstructive sleep apnea (adult) (pediatric) Encounter for pre-operative examination DM type 2 (diabetes mellitus, type 2) (Chronic) Hypothyroidism (Chronic) Dyslipidemia (Chronic) Asthma, moderate persistent (Chronic) Allergic rhinitis (Chronic) HTN (hypertension) (Chronic) BPH (benign prostatic hyperplasia) (Chronic) Gastroesophageal reflux disease (Acute) PHILLIP on CPAP Headache (Acute) Nausea & vomiting (Acute) Acute hyponatremia (Acute) Hypokalemia (Acute) Medical History Obstructive sleep apnea (adult) (pediatric) Asthma exacerbation Osteoarthritis Chronic back pain GERD (gastroesophageal reflux disease) Hypothyroidism Diabetes mellitus, type 2 NIDDM Chronic steroid use COPD Chronic headaches Hypertension Hyperlipidemia Pneumonia annually. last 11/2019. Asthma H. pylori infection hx Surgical History History of tooth extraction History of tonsillectomy History of shoulder surgery left History of colonoscopy Family History Mother Diabetes Father Diabetes Emphysema of lung Sister Diabetes Other No family history of adverse response to anesthesia Social History Smoking Status: Never smoker Second Hand Exposure: No; Do You Dip or Chew Tobacco: No; Hx Alcohol Use: No Hx Substance Use: No Preferred Language: Upper Sorbian Communication Ability: Effective Rn Burn Required: No Beliefs That Will Affect Care: None marital status: Current Living Situation: Spouse current occupational status: retired Feels Safe at Home: Yes Assistive Devices: Cane and Walker Allergies Allergies Allergy/AdvReac Type Severity Reaction Status Date / Time cat dander Allergy Unknown watery eyes Verified 12/30/23 00:53 No Known Drug Allergies Allergy Unknown . Verified 12/30/23 00:53 SUJATHA Inhibitors AdvReac Mild Cough Verified 12/30/23 00:53 Home Meds Home Medications Medication Instructions Recorded Confirmed albuterol sulfate 90 mcg/actuation 2 puff inhalation Q4H PRN sob 07/25/23 12/30/23 aerosol inhaler amlodipine 5 mg tablet 5 mg PO DAILY 07/25/23 12/30/23 atorvastatin 20 mg tablet 20 mg PO DAILY 07/25/23 12/30/23 doxazosin 2 mg tablet 2 mg PO HS 07/25/23 12/30/23 fluticasone furoate 100 1 inh inhalation DAILY 07/25/23 12/30/23 mcg/actuation blister powder for inhalation (Arnuity Ellipta) glipizide 5 mg tablet 5 mg PO BID 07/25/23 12/30/23 ipratropium 0.5 mg-albuterol 3 mg 3 ml inhalation Q6H PRN Shortness 07/25/23 12/30/23 (2.5 mg base)/3 mL nebulization Of Breath Or Wheezing soln levothyroxine 100 mcg tablet 100 mcg PO DAILY 07/25/23 12/30/23 losartan 25 mg tablet 25 mg PO DAILY 07/25/23 12/30/23 mometasone 50 mcg/actuation nasal 2 spray intranasal DAILY 07/25/23 12/30/23 spray montelukast 10 mg tablet 10 mg PO HS 07/25/23 12/30/23 omeprazole 20 mg capsule,delayed 20 mg PO DAILY 07/25/23 12/30/23 release prednisone 5 mg tablet 5 mg PO DAILY 07/25/23 12/30/23 sodium chloride 3 % for 4 ml inhalation BID 07/25/23 12/30/23 nebulization tiotropium bromide 18 mcg capsule 18 mcg inhalation DAILY 07/25/23 12/30/23 with inhalation device empagliflozin 25 mg tablet 25 mg PO DAILY 12/30/23 12/30/23 (Jardiance) omalizumab 150 mg/mL subcutaneous 150 mg subcut .QMONTH 12/30/23 12/30/23 syringe (Xolair) Previous Rx's Medication Instructions Recorded aspirin 81 mg tablet,delayed 81 mg PO QAM 30 days #30 tabs 07/28/23 release metoprolol succinate 25 mg 12.5 mg (1/2 x 25 mg) PO QAM 30 07/28/23 tablet,extended release 24 hr days #15 tabs Results & Data (ED) Vital Signs Vital Signs - 24 hr 06/19/24 19:57 06/19/24 19:58 06/19/24 20:07 Temperature 37.1 C Temperature Source Oral Pulse Rate 116 H Pulse Rate [Apical] 123 H Pulse Rate from SpO2 Sensor Respiratory Rate 33 H 32 H Respiratory Effort / Characteristics Spontaneous Labored Pursed Lip Short of Breath Labored Labored Respiratory Pattern Tachypnea Tachypnea Blood Pressure 149/97 H Blood Pressure [Right Arm] Blood Pressure Mean 114 Blood Pressure Mean [Right Arm] Pulse Oximetry 89 L 89 L Oxygen Delivery Method High Flow Nasal Cannula Oxymask Oxygen Flow Rate 40 8 Fraction of Inspired Oxygen 80 SaO2/FiO2 Ratio Sepsis Recent Fever Within 48 Hours No Sepsis New/Unexplained Change in Mental Status No Sepsis Action Taken by Nursing Physician Notified Oxygen Flow Rate - Titration Fraction of Inspired Oxygen - Titration Pulse Oximetry Post Tiitration 06/19/24 20:07 06/19/24 20:13 06/19/24 20:13 Temperature Temperature Source Pulse Rate 106 H 109 H Pulse Rate [Apical] 109 H Pulse Rate from SpO2 Sensor Respiratory Rate 30 H 30 H Respiratory Effort / Characteristics Labored Respiratory Pattern Tachypnea Blood Pressure Blood Pressure [Right Arm] 151/89 H Blood Pressure Mean Blood Pressure Mean [Right Arm] 109 Pulse Oximetry 88 L 89 L Oxygen Delivery Method Nebulizer Nebulizer Oxygen Flow Rate 8 8 Fraction of Inspired Oxygen SaO2/FiO2 Ratio Sepsis Recent Fever Within 48 Hours Sepsis New/Unexplained Change in Mental Status Sepsis Action Taken by Nursing Oxygen Flow Rate - Titration Fraction of Inspired Oxygen - Titration Pulse Oximetry Post Tiitration 06/19/24 20:36 06/19/24 20:36 06/19/24 20:38 Temperature Temperature Source Pulse Rate Pulse Rate [Apical] 115 H Pulse Rate from SpO2 Sensor Respiratory Rate 28 H Respiratory Effort / Characteristics Labored Respiratory Pattern Tachypnea Blood Pressure 154/84 H 154/84 H Blood Pressure [Right Arm] 154/84 H Blood Pressure Mean 89 89 Blood Pressure Mean [Right Arm] 107 Pulse Oximetry 88 L Oxygen Delivery Method High Flow Nasal Cannula Oxygen Flow Rate 30 Fraction of Inspired Oxygen SaO2/FiO2 Ratio Sepsis Recent Fever Within 48 Hours Sepsis New/Unexplained Change in Mental Status Sepsis Action Taken by Nursing Oxygen Flow Rate - Titration Fraction of Inspired Oxygen - Titration Pulse Oximetry Post Tiitration 06/19/24 20:45 06/19/24 20:45 06/19/24 20:45 Temperature Temperature Source Pulse Rate Pulse Rate [Apical] Pulse Rate from SpO2 Sensor Respiratory Rate Respiratory Effort / Characteristics Respiratory Pattern Blood Pressure 156/96 H 156/96 H 156/96 H Blood Pressure [Right Arm] Blood Pressure Mean 125 125 125 Blood Pressure Mean [Right Arm] Pulse Oximetry Oxygen Delivery Method Oxygen Flow Rate Fraction of Inspired Oxygen SaO2/FiO2 Ratio Sepsis Recent Fever Within 48 Hours Sepsis New/Unexplained Change in Mental Status Sepsis Action Taken by Nursing Oxygen Flow Rate - Titration Fraction of Inspired Oxygen - Titration Pulse Oximetry Post Tiitration 06/19/24 20:46 06/19/24 20:47 06/19/24 20:48 Temperature 36.8 C Temperature Source Oral Pulse Rate 125 H Pulse Rate [Apical] 119 H Pulse Rate from SpO2 Sensor 108 H Respiratory Rate 32 H 33 H Respiratory Effort / Characteristics Labored Respiratory Pattern Tachypnea Blood Pressure Blood Pressure [Right Arm] 156/96 H Blood Pressure Mean Blood Pressure Mean [Right Arm] 116 Pulse Oximetry 88 L 91 90 Oxygen Delivery Method High Flow Nasal Cannula High Flow Nasal Cannula Oxygen Flow Rate 30 40 Fraction of Inspired Oxygen 80 80 SaO2/FiO2 Ratio 113 Sepsis Recent Fever Within 48 Hours Sepsis New/Unexplained Change in Mental Status Sepsis Action Taken by Nursing Oxygen Flow Rate - Titration 40 Fraction of Inspired Oxygen - Titration 80 Pulse Oximetry Post Tiitration 91 06/19/24 21:01 06/19/24 21:17 06/19/24 21:18 Temperature Temperature Source Pulse Rate 125 H Pulse Rate [Apical] 125 H 124 H Pulse Rate from SpO2 Sensor 119 H Respiratory Rate 30 H 28 H 33 H Respiratory Effort / Characteristics Labored Labored Respiratory Pattern Tachypnea Tachypnea Blood Pressure Blood Pressure [Right Arm] 161/108 H 149/87 H Blood Pressure Mean Blood Pressure Mean [Right Arm] 125 107 Pulse Oximetry 93 93 91 Oxygen Delivery Method High Flow Nasal Cannula High Flow Nasal Cannula Oxygen Flow Rate 40 40 Fraction of Inspired Oxygen 80 80 SaO2/FiO2 Ratio 116 116 Sepsis Recent Fever Within 48 Hours Sepsis New/Unexplained Change in Mental Status Sepsis Action Taken by Nursing Oxygen Flow Rate - Titration Fraction of Inspired Oxygen - Titration Pulse Oximetry Post Tiitration 06/19/24 21:18 06/19/24 21:18 06/19/24 21:18 Temperature Temperature Source Pulse Rate Pulse Rate [Apical] Pulse Rate from SpO2 Sensor Respiratory Rate Respiratory Effort / Characteristics Respiratory Pattern Blood Pressure 149/87 H 149/87 H 149/87 H Blood Pressure [Right Arm] Blood Pressure Mean 102 102 102 Blood Pressure Mean [Right Arm] Pulse Oximetry Oxygen Delivery Method Oxygen Flow Rate Fraction of Inspired Oxygen SaO2/FiO2 Ratio Sepsis Recent Fever Within 48 Hours Sepsis New/Unexplained Change in Mental Status Sepsis Action Taken by Nursing Oxygen Flow Rate - Titration Fraction of Inspired Oxygen - Titration Pulse Oximetry Post Tiitration 06/19/24 21:30 06/19/24 21:31 06/19/24 21:31 Temperature Temperature Source Pulse Rate 136 H Pulse Rate [Apical] Pulse Rate from SpO2 Sensor 119 H Respiratory Rate 33 H Respiratory Effort / Characteristics Respiratory Pattern Blood Pressure 152/80 H 152/80 H Blood Pressure [Right Arm] Blood Pressure Mean 117 117 Blood Pressure Mean [Right Arm] Pulse Oximetry 90 Oxygen Delivery Method Oxygen Flow Rate Fraction of Inspired Oxygen SaO2/FiO2 Ratio Sepsis Recent Fever Within 48 Hours Sepsis New/Unexplained Change in Mental Status Sepsis Action Taken by Nursing Oxygen Flow Rate - Titration Fraction of Inspired Oxygen - Titration Pulse Oximetry Post Tiitration 06/19/24 21:34 06/19/24 21:45 06/19/24 21:54 Temperature Temperature Source Pulse Rate 112 H Pulse Rate [Apical] 113 H 113 H Pulse Rate from SpO2 Sensor 107 H Respiratory Rate 28 H 24 28 H Respiratory Effort / Characteristics Labored Labored Respiratory Pattern Tachypnea Blood Pressure Blood Pressure [Right Arm] 152/80 H 143/91 H Blood Pressure Mean Blood Pressure Mean [Right Arm] 104 108 Pulse Oximetry 94 94 93 Oxygen Delivery Method High Flow Nasal Cannula High Flow Nasal Cannula Oxygen Flow Rate 40 40 Fraction of Inspired Oxygen 80 80 SaO2/FiO2 Ratio 117 117 Sepsis Recent Fever Within 48 Hours Sepsis New/Unexplained Change in Mental Status Sepsis Action Taken by Nursing Oxygen Flow Rate - Titration Fraction of Inspired Oxygen - Titration Pulse Oximetry Post Tiitration 06/19/24 22:00 06/19/24 22:00 06/19/24 22:15 Temperature Temperature Source Pulse Rate Pulse Rate [Apical] 95 H 96 H Pulse Rate from SpO2 Sensor Respiratory Rate 28 H 26 H Respiratory Effort / Characteristics Respiratory Pattern Blood Pressure 124/94 Blood Pressure [Right Arm] 124/94 127/94 Blood Pressure Mean 97 Blood Pressure Mean [Right Arm] 104 105 Pulse Oximetry 93 94 Oxygen Delivery Method High Flow Nasal Cannula High Flow Nasal Cannula Oxygen Flow Rate 40 40 Fraction of Inspired Oxygen 80 80 SaO2/FiO2 Ratio 116 117 Sepsis Recent Fever Within 48 Hours Sepsis New/Unexplained Change in Mental Status Sepsis Action Taken by Nursing Oxygen Flow Rate - Titration Fraction of Inspired Oxygen - Titration Pulse Oximetry Post Tiitration 06/19/24 22:30 Temperature Temperature Source Pulse Rate Pulse Rate [Apical] 98 H Pulse Rate from SpO2 Sensor Respiratory Rate 26 H Respiratory Effort / Characteristics Labored Respiratory Pattern Blood Pressure Blood Pressure [Right Arm] 147/69 H Blood Pressure Mean Blood Pressure Mean [Right Arm] 95 Pulse Oximetry 94 Oxygen Delivery Method High Flow Nasal Cannula Oxygen Flow Rate 40 Fraction of Inspired Oxygen 80 SaO2/FiO2 Ratio 117 Sepsis Recent Fever Within 48 Hours Sepsis New/Unexplained Change in Mental Status Sepsis Action Taken by Nursing Oxygen Flow Rate - Titration Fraction of Inspired Oxygen - Titration Pulse Oximetry Post Tiitration Laboratory Data 06/19/24 19:55 06/19/24 19:55 Lab Results 06/19/24 06/19/24 06/19/24 Range/Units 19:55 20:02 20:09 WBC 7.62 (4.8-10.8) K/ul RBC 5.36 (4.70-6.10) M/uL Hgb 15.2 (14.0-18.0) g/dl POC Hgb 15.6 (14.0-18.0) g/dl Hct 45.3 (42.0-52.0) % POC Hct 46 (42-52) % MCV 84.5 (80.0-100.0) fL MCH 28.4 (25.0-34.0) pg MCHC 33.6 (32.0-36.0) g/dL RDW Std Deviation 45.1 (36.4-46.3) fL RDW Coeff of Zainab 14.6 H (11.5-14.5) % Plt Count 221 (130-400) K/uL MPV 10.0 (9.4-12.4) fL Immature Gran % (Auto) 0.8 % Neut % (Auto) 89.4 % Lymph % (Auto) 6.6 % [place] % (Auto) 3.1 % Eos % (Auto) 0.0 % Baso % (Auto) 0.1 % Neut # (Auto) 6.81 H (1.40-6.50) K/uL Lymph # (Auto) 0.50 L (1.20-3.40) K/uL [place] # (Auto) 0.24 (0.11-0.59) K/uL Eos # (Auto) 0.00 (0.00-0.50) K/uL Baso # (Auto) 0.01 (0.00-0.20) K/uL Immature Gran # (Auto) 0.06 (0.01-0.20) K/uL VBG pH 7.39 (7.36-7.41) VBG pCO2 38 (38-50) mmHg VBG pO2 38 mmHg VBG HCO3 23 mmol/L VBG O2 Saturation 66.1 % VBG Base Excess -1.7 mEq/L POC Sodium 141 (135-144) mmol/L Sodium 141 (136-145) mmol/L POC Potassium 3.5 (3.3-5.0) mmol/L Potassium 3.6 (3.5-5.1) mmol/L POC Chloride 103 (101-112) mmol/L Chloride 102 (98-107) mmol/L Carbon Dioxide 22 (21-32) mmol/L POC Total CO2 21 L (24-31) mmol/L Anion Gap 17 H (3-11) POC Anion Gap 22.0 (16-25) mmol/L POC BUN 18 (7-18) mg/dl BUN 19 (6-23) mg/dl Creatinine 0.94 (0.6-1.4) mg/dl POC Creatinine 0.9 (0.6-1.3) mg/dl Est Cr Clr Drug Dosing 58.8 ml/min eGFR 83.49 BUN/Creatinine Ratio 20.2 H (10-20) Glucose 214 H (70-99(Fasting)) mg/dl POC Glucose (other) 224 H (70-99) mg/dl Lactate 3.2 H* (0.4-2.0) mmol/L Calcium 9.3 (8.6-10.3) mg/dl POC Ioniz Calcium Seb 1.09 L (1.12-1.32) mmol/l Magnesium 2.1 (1.7-2.4) mg/dl Total Bilirubin 0.6 (0.2-1.0) mg/dl Direct Bilirubin 0.0 (0-0.2) mg/dl AST 24 (13-39) U/L ALT 24 (7-52) U/L Alkaline Phosphatase 42 (34-104) U/L Troponin I High Sens 63.5 H* (0-20) pg/ml B-Natriuretic Peptide (0-100) pg/ml Total Protein 8.0 (6.0-8.3) gm/dl Albumin 4.3 (3.4-5.0) gm/dl Procalcitonin 0.04 (0-0.5) ng/ml Urine Color Urine Appearance (Clear) Urine pH (4.5-7.5) Ur Specific [place] (1.000-1.030) Urine Protein (Negative) Urine Glucose (UA) (Negative) Urine Ketones (Negative) Urine Blood (Negative) Urine Nitrite (Negative) Urine Bilirubin (Negative) Urine Urobilinogen (Negative) Ur Leukocyte Esterase (Negative) Urine WBC (Auto) (0-5) /hpf Urine RBC (Auto) (0-2) /hpf U Hyaline Cast (Auto) (0-2) /lpf U Epithel Cells (Auto) (0-2) /hpf Urine Bacteria (Auto) (None Seen) Adenovirus (PCR) Not Detected (NotDetected) B. pertussis DNA (PCR) Not Detected (NotDetected) B.parapertussis DNA PCR Not Detected (NotDetected) C. pneumoniae DNA (PCR) Not Detected (NotDetected) Coronavirus OC43 (PCR) Not Detected (NotDetected) Coronavirus HKU1 (PCR) Not Detected (NotDetected) Coronavirus 229E (PCR) Not Detected (NotDetected) SARS-CoV-2 (PCR) DETECTED A (NotDetected) Coronavirus NL63 (PCR) Not Detected (NotDetected) Human Metapneumovir PCR Not Detected (NotDetected) Influenza Type A (PCR) Not Detected (NotDetected) Influenza Type B (PCR) Not Detected (NotDetected) M. pneumoniae (PCR) Not Detected (NotDetected) Parainfluenza 1 (PCR) Not Detected (NotDetected) Parainfluenza 2 (PCR) Not Detected (NotDetected) Parainfluenza 3 (PCR) Not Detected (NotDetected) Parainfluenza 4 (PCR) Not Detected (NotDetected) RSV (PCR) Not Detected (NotDetected) Entero/Rhino (PCR) Not Detected (NotDetected) 06/19/24 06/19/24 06/19/24 Range/Units 20:13 20:15 21:50 WBC (4.8-10.8) K/ul RBC (4.70-6.10) M/uL Hgb (14.0-18.0) g/dl POC Hgb (14.0-18.0) g/dl Hct (42.0-52.0) % POC Hct (42-52) % MCV (80.0-100.0) fL MCH (25.0-34.0) pg MCHC (32.0-36.0) g/dL RDW Std Deviation (36.4-46.3) fL RDW Coeff of Zainab (11.5-14.5) % Plt Count (130-400) K/uL MPV (9.4-12.4) fL Immature Gran % (Auto) % Neut % (Auto) % Lymph % (Auto) % [place] % (Auto) % Eos % (Auto) % Baso % (Auto) % Neut # (Auto) (1.40-6.50) K/uL Lymph # (Auto) (1.20-3.40) K/uL [place] # (Auto) (0.11-0.59) K/uL Eos # (Auto) (0.00-0.50) K/uL Baso # (Auto) (0.00-0.20) K/uL Immature Gran # (Auto) (0.01-0.20) K/uL VBG pH (7.36-7.41) VBG pCO2 (38-50) mmHg VBG pO2 mmHg VBG HCO3 mmol/L VBG O2 Saturation % VBG Base Excess mEq/L POC Sodium (135-144) mmol/L Sodium (136-145) mmol/L POC Potassium (3.3-5.0) mmol/L Potassium (3.5-5.1) mmol/L POC Chloride (101-112) mmol/L Chloride (98-107) mmol/L Carbon Dioxide (21-32) mmol/L POC Total CO2 (24-31) mmol/L Anion Gap (3-11) POC Anion Gap (16-25) mmol/L POC BUN (7-18) mg/dl BUN (6-23) mg/dl Creatinine (0.6-1.4) mg/dl POC Creatinine (0.6-1.3) mg/dl Est Cr Clr Drug Dosing ml/min eGFR BUN/Creatinine Ratio (10-20) Glucose (70-99(Fasting)) mg/dl POC Glucose (other) (70-99) mg/dl Lactate (0.4-2.0) mmol/L Calcium (8.6-10.3) mg/dl POC Ioniz Calcium Seb (1.12-1.32) mmol/l Magnesium (1.7-2.4) mg/dl Total Bilirubin (0.2-1.0) mg/dl Direct Bilirubin (0-0.2) mg/dl AST (13-39) U/L ALT (7-52) U/L Alkaline Phosphatase (34-104) U/L Troponin I High Sens 65.0 H* (0-20) pg/ml B-Natriuretic Peptide 66 (0-100) pg/ml Total Protein (6.0-8.3) gm/dl Albumin (3.4-5.0) gm/dl Procalcitonin (0-0.5) ng/ml Urine Color Yellow Urine Appearance Clear (Clear) Urine pH 5.0 (4.5-7.5) Ur Specific [place] 1.039 H (1.000-1.030) Urine Protein 1+ H (Negative) Urine Glucose (UA) 3+ H (Negative) Urine Ketones 2+ H (Negative) Urine Blood Negative (Negative) Urine Nitrite Negative (Negative) Urine Bilirubin Negative (Negative) Urine Urobilinogen Negative (Negative) Ur Leukocyte Esterase Negative (Negative) Urine WBC (Auto) 0-5 (0-5) /hpf Urine RBC (Auto) 0-2 (0-2) /hpf U Hyaline Cast (Auto) 0-2 (0-2) /lpf U Epithel Cells (Auto) 0-2 (0-2) /hpf Urine Bacteria (Auto) None Seen (None Seen) Adenovirus (PCR) (NotDetected) B. pertussis DNA (PCR) (NotDetected) B.parapertussis DNA PCR (NotDetected) C. pneumoniae DNA (PCR) (NotDetected) Coronavirus OC43 (PCR) (NotDetected) Coronavirus HKU1 (PCR) (NotDetected) Coronavirus 229E (PCR) (NotDetected) SARS-CoV-2 (PCR) (NotDetected) Coronavirus NL63 (PCR) (NotDetected) Human Metapneumovir PCR (NotDetected) Influenza Type A (PCR) (NotDetected) Influenza Type B (PCR) (NotDetected) M. pneumoniae (PCR) (NotDetected) Parainfluenza 1 (PCR) (NotDetected) Parainfluenza 2 (PCR) (NotDetected) Parainfluenza 3 (PCR) (NotDetected) Parainfluenza 4 (PCR) (NotDetected) RSV (PCR) (NotDetected) Entero/Rhino (PCR) (NotDetected) Administered Medications Vancomycin HCl 1,500 mg/ (Sodium Chloride) 530 mls @ 200 mls/hr IV NOW ONE Stop: 06/19/24 23:11 Last Admin: 06/19/24 21:10 Dose: 200 mls/hr Documented By: EMB Discontinued Medications Albuterol (Albut/Ipratrop 3mg/0.5mg Neb 3 Ml Vial) Confirm Administered Dose 3 ml .ROUTE .STK-MED ONE Stop: 06/19/24 19:57 Last Admin: 06/19/24 20:13 Dose: Not Given Documented By: JET Albuterol (Albut/Ipratrop 3mg/0.5mg Neb 3 Ml Vial) Confirm Administered Dose 9 ml .ROUTE .STK-MED ONE Stop: 06/19/24 19:58 Last Admin: 06/19/24 20:13 Dose: 9 ml Documented By: JET Magnesium Sulfate/Dextrose (Magnesium Sulfate / D5w) 1 gm in 100 mls @ 100 mls/hr IV NOW STA Stop: 06/19/24 20:58 Last Infusion: 06/19/24 21:01 Dose: Infused Documented By: Admin: 06/19/24 20:18 Dose: 100 mls/hr Documented By: EDWIGE Famotidine (Pepcid 20mg Iv Push) 20 mg in 5 mls @ 2.5 mls/min IV NOW STA Stop: 06/19/24 20:00 Last Admin: 06/19/24 20:18 Dose: 2.5 mls/min Documented By: EDWIGE Sodium Chloride (Nss) 500 mls @ 999 mls/hr IV .Q31M ONE Stop: 06/19/24 21:03 Last Infusion: 06/19/24 21:10 Dose: Infused Documented By: Admin: 06/19/24 20:37 Dose: 999 mls/hr Documented By: EDWIGE Cefepime HCl (Maxipime 2000mg) 2,000 mg in 20 mls @ 5 mls/min IV NOW STA; Protocol Stop: 06/19/24 20:36 Last Admin: 06/19/24 20:37 Dose: 5 mls/min Documented By: EDWIGE Acetaminophen (Ofirmev) 1,000 mg in 100 mls @ 400 mls/hr IV NOW STA Stop: 06/19/24 21:41 Last Infusion: 06/19/24 21:49 Dose: Infused Documented By: Admin: 06/19/24 21:33 Dose: 400 mls/hr Documented By: EDWIGE Ioversol (Optiray 320 125ml) 120 ml IV ONCE ONE Stop: 06/19/24 20:29 Last Admin: 06/19/24 20:28 Dose: 120 ml Documented By: KVNG Magnesium Sulfate/Dextrose (Magnesium Sulfate 1gm / D5w Bag) Confirm Administered Dose 1 gm IV .STK-MED ONE Stop: 06/19/24 19:59 Last Admin: 06/19/24 20:19 Dose: Not Given Documented By: EDWIGE Methylprednisolone (Methylprednisolone 125 Mg/2 Ml Vial) 60 mg IV NOW STA Stop: 06/19/24 20:00 Last Admin: 06/19/24 20:18 Dose: 60 mg Documented By: EDWIGE Discharge Plan Visit Data Chief Complaint: Shortness of Breath/Dyspnea Stated Complaint: SOB ED Provider: Aviva Michelle Discharge Problem: Acute hypoxemic respiratory failure, Multifocal pneumonia, COVID-19, Elevated lactic acid level, Non-ST elevation CA (NSTEMI), Acute dyspnea Forms Stand Alone Forms: My [facility] Prescriptions Prescriptions: No Action atorvastatin 20 mg tablet 20 mg PO DAILY ipratropium-albuterol 0.5 mg-3 mg(2.5 mg base)/3 mL solution for nebulization 3 ml INHALATION Q6H PRN (Reason: Shortness Of Breath Or Wheezing) sodium chloride 3 % solution for nebulization 4 ml INHALATION BID prednisone 5 mg tablet 5 mg PO DAILY Hold Instructions: Resume on 08/05/23. amlodipine 5 mg tablet 5 mg PO DAILY levothyroxine 100 mcg tablet 100 mcg PO DAILY losartan 25 mg tablet 25 mg PO DAILY mometasone 50 mcg/actuation spray,non-aerosol 2 spray INTRANASAL DAILY omeprazole 20 mg capsule,delayed release(DR/EC) 20 mg PO DAILY montelukast 10 mg tablet 10 mg PO HS albuterol sulfate 90 mcg/actuation HFA aerosol inhaler 2 puff INHALATION Q4H PRN (Reason: sob) glipizide 5 mg tablet 5 mg PO BID doxazosin 2 mg tablet 2 mg PO HS tiotropium bromide 18 mcg capsule, w/inhalation device 18 mcg INHALATION DAILY Arnuity Ellipta 100 mcg/actuation blister with device 1 inh INHALATION DAILY metoprolol succinate 25 mg Tablet Extended Release 24 Hr 12.5 mg PO QAM 30 Days Qty: 15 1RF aspirin 81 mg Tablet,Delayed Release (Dr/Ec) 81 mg PO QAM 30 Days Qty: 30 1RF Rx Instructions: always take with a full stomach Jardiance 25 mg tablet 25 mg PO DAILY Xolair 150 mg/mL syringe 150 mg SUBCUT .QMONTH Referrals Referrals: Enrico Mccauley MD [Primary Care Provider] -
[2024-06-19] MEDS: ALBUT/IPRATROP 3MG/0.5MG NEB 3 ML VIAL ONE ×2 (20:13)
[2024-06-19 20:14] LABS: iSTAT Creatinine 0.9 mg/dl (0.6-1.3); iSTAT Hemoglobin 15.6 g/dl (14.0-18.0); iSTAT Ionized Calcium 1.09 mmol/l (1.12-1.32); iSTAT Potassium 3.5 mmol/L (3.3-5.0)
[2024-06-19] MEDS: MAGNESIUM SULFATE / D5W 1 GM/100 ML BAG IV STA (20:18)
[2024-06-19] MEDS: methylPREDNISolone 125 MG/2 ML VIAL IV STA (20:18)
[2024-06-19] MEDS: FAMOTIDINE 20MG IV PUSH 20 MG/5 ML SYR IV STA (20:18)
[2024-06-19 20:19] LABS: Base Excess VBG -1.7 mEq/L; HCO3 VBG 23 mmol/L; Oxygen Saturation VBG 66.1 %; PCO2 VBG 38 mmHg (38-50); PO2 VBG 38 mmHg; pH VBG 7.39 (7.36-7.41)
[2024-06-19] MEDS: MAGNESIUM SULFATE 1GM / D5W BAG IV ONE (20:19)
[2024-06-19] MEDS: OPTIRAY 320 125ml IV ONE (20:28)
[2024-06-19 20:31] LABS: Basophils # (auto) 0.01 K/uL (0.00-0.20); Basophils % (auto) 0.1 %; Hematocrit (blood only) 45.3 % (42.0-52.0); Hemoglobin 15.2 g/dl (14.0-18.0); Immature Granulocytes # (auto) 0.06 K/uL (0.01-0.20); Immature Granulocytes % (auto) 0.8 %; Lymphocytes % (auto) 6.6 %; Mean Corpuscular Hemoglobin 28.4 pg (25.0-34.0); Mean Corpuscular Hgb Conc 33.6 g/dL (32.0-36.0); Mean Corpuscular Volume 84.5 fL (80.0-100.0); Monocytes # (auto) 0.24 K/uL (0.11-0.59); Monocytes % (auto) 3.1 %; Neutrophils # (auto) 6.81 K/uL (1.40-6.50); Neutrophils % (auto) 89.4 %; Platelet Count 221 K/uL (130-400); RDW Coefficient of Variation 14.6 % (11.5-14.5); RDW Standard Deviation 45.1 fL (36.4-46.3); Red Blood Count 5.36 M/uL (4.70-6.10); White Blood Count 7.62 K/ul (4.8-10.8)
[2024-06-19] MEDS ORDERED: VANCOMYCIN CONSULT ACTIVE PRN (20:33)
[2024-06-19] MEDS: CEFEPIME 2000MG 2,000 MG/20 ML SYR IV STA (20:37)
[2024-06-19] MEDS: SODIUM CHLORIDE 0.9% 500 ML IV ONE (20:37)
[2024-06-19 20:39] LABS: Appearance Urine Clear (Clear); Bacteria Urine Automated None Seen (None Seen); Bilirubin Urine Negative (Negative); Blood Urine Negative (Negative); Cast Urine Automated 0-2 /lpf (0-2); Color Urine Yellow; Epithelial Cell Urine Auto 0-2 /hpf (0-2); Glucose Urine UA 3+ (Negative); Ketones Urine 2+ (Negative); Leukocyte Esterase Urine Negative (Negative); Nitrite Urine Negative (Negative); Protein Urine 1+ (Negative); RBC Urine Automated 0-2 /hpf (0-2); Specific Gravity Urine 1.039 (1.000-1.030); Urobilinogen Urine Negative (Negative); WBC Urine Automated 0-5 /hpf (0-5)
[2024-06-19 20:48] LABS: Albumin Level 4.3 gm/dl (3.4-5.0); BUN Creatinine Ratio 20.2 (10-20); Bilirubin,Total 0.6 mg/dl (0.2-1.0); Calcium 9.3 mg/dl (8.6-10.3); Creatinine Clr Calc Pharmacy 58.8 ml/min; Magnesium 2.1 mg/dl (1.7-2.4); Potassium 3.6 mmol/L (3.5-5.1)
[2024-06-19] MEDS: VANCOMYCIN HCL 1,500 MG in SODIUM CHLORIDE 0.9% 500 ML IV ONE (21:10)
[2024-06-19 21:15] LABS: Adenovirus PCR Not Detected (NotDetected); Bordetella parapertussis PCR Not Detected (NotDetected); Bordetella pertussis PCR Not Detected (NotDetected); Chlamydia pneumoniae PCR Not Detected (NotDetected); Coronavirus 229E PCR Not Detected (NotDetected); Coronavirus CoV-2 (COVID19)PCR DETECTED (NotDetected); Coronavirus HKU1 PCR Not Detected (NotDetected); Coronavirus NL63 PCR Not Detected (NotDetected); Coronavirus OC43PCR Not Detected (NotDetected); Human Metapneumovirus PCR Not Detected (NotDetected); Influenza A PCR Not Detected (NotDetected); Influenza B PCR Not Detected (NotDetected); Mycoplasma pneumoniae PCR Not Detected (NotDetected); Parainfluenza Virus 1 PCR Not Detected (NotDetected); Parainfluenza Virus 2 PCR Not Detected (NotDetected); Parainfluenza Virus 3 PCR Not Detected (NotDetected); Parainfluenza Virus 4 PCR Not Detected (NotDetected); Respiratory Syncytial VirusPCR Not Detected (NotDetected); Rhinovirus/Enterovirus PCR Not Detected (NotDetected)
[2024-06-19 21:30] LABS: Troponin I High Sensitivity 63.5 pg/ml (0-20)
[2024-06-19] MEDS: ACETAMINOPHEN 1,000 MG/100 ML VIAL IV STA (21:33)
[2024-06-20] MEDS ORDERED: GLUCOSE 40% GEL 15 GM TUBE PO PRN (00:58)
[2024-06-20] MEDS ORDERED: GLUCOSE 10 TAB/TUBE PO PRN (00:58)
[2024-06-20] MEDS ORDERED: GLUCAGON FOR INJ 1 MG VIAL SQ PRN (00:58)
[2024-06-20] MEDS ORDERED: PHARMACY GLYCEMIC MGMT CONSULT PRN (00:58)
[2024-06-20] MEDS ORDERED: DEXTROSE 50% 50 ML SYRINGE IV PRN (00:58)
[2024-06-20] MEDS ORDERED: POLYETHYLENE (MIRALAX) 17 GM PACK PO PRN (00:58)
[2024-06-20] MEDS ORDERED: ALBUTEROL HFA 8 GM INHALER INH PRN (00:58)
[2024-06-20] MEDS ORDERED: CARBOHYDRATES FOR HYPOGLYCEMIA PO PRN (00:58)
[2024-06-20] MEDS ORDERED: NITROGLYCERIN SL 0.4 MG/TAB TAB SL PRN (00:58)
[2024-06-20] MEDS: DOXYCYCLINE HYCLATE 100 MG CAP PO STA (01:46)
[2024-06-20] MEDS: REMDESIVIR 200 MG in SODIUM CHLORIDE 0.9% 210 ML IV STA (01:50)
--- NOTE | 2024-06-20 02:16 | History & Physical Report ---
Date of Service June 19, 2024 Assessment & Plan (1) Acute hypoxemic respiratory failure: Plan: 78-year-old male with past medical history significant for type 2 diabetes, hypothyroidism, hyperlipidemia, obstructive sleep apnea noncompliant with CPAP, severe persistent asthma dependent on systemic steroids, restrictive lung disease, neuromuscular respiratory weakness, chronic heart failure with preserved ejection fraction, hypertension, mild aortic stenosis, GERD, BPH, migraine variant, periodic Limb movement disorder, who lives at home with his comes because of shortness of breath. Patient is getting treated for pneumonia with Doxy and prednisone taper for last few days. As per he is sick for last 1 week. He is on oxygen 2 L at home. But since today morning he was getting more short of breath. Has mild cough. No fevers. Has some headache. Appetite is okay. No nausea ,vomiting or diarrhea. No abdominal pain. His oxygen was bumped to 2.5 L but still he was saturating only mid 80s while resting and while ambulating oxygen saturation dropping to 70s. In the ER is requiring high flow oxygen. Currently resting comfortably. Somewhat hard of hearing. helped with H&P. Patient denies any chest pain. Vision is okay. No runny nose or sore throat. Normal micturition. Acute hypoxemic respiratory failure Multifocal pneumonia COVID Asthma exacerbation Requiring high flow oxygen VBG okay We will follow CTA chest Pulmonary consult COVID COVID precautions Remdesivir and follow remdesivir labs Steroids Close monitor Multifocal pneumonia Follow CT chest On Vanco and cefepime Complete p.o. doxycycline started as outpatient Follow the response Asthma (steroid dependent)exacerbation from above Restrictive lung disease Neuromuscular respiratory weakness DuoNebs ATC and as needed Hypertonic saline neb twice daily IV Solu-Medrol 40 mg 3 times daily Antibiotics as above Currently on high flow Continue home inhalers Hold home p.o. prednisone while getting IV steroids Pulmonary consulted Obstructive sleep apnea non compliant with CPAP On home oxygen Currently on high flow Elevated lactic acid Mostly from respiratory distress Trending down Will follow repeat levels Chronic heart failure with preserved infection Mild aortic stenosis Monitor for volume overload Elevated troponin Mostly demand ischemia Will follow serial enzymes and echo If any concern consult cardiology Type 2 diabetes Hold home p.o. medications Lantus and sliding scale Close monitor while on steroids Glycemic pharmacy consult Fall HbA1c levels Hypothyroidism On Synthyroid Will follow TSH Hypertension Amlodipine and losartan and metoprolol succinate and doxazosin with holding parameters GERD On omeprazole BPH On doxazosin Monitor for urinary retention Hyperlipidemia On statin DVT prophylaxis Lovenox Disposition Telemetry Full code per discussion with the History of Present Illness Chief Complaint: Shortness of breath Primary Care Provider: Enrico Mccauley MD 78-year-old male with past medical history significant for type 2 diabetes, hypothyroidism, hyperlipidemia, obstructive sleep apnea noncompliant with CPAP, severe persistent asthma dependent on systemic steroids, restrictive lung disease, neuromuscular respiratory weakness, chronic heart failure with preserved ejection fraction, hypertension, mild aortic stenosis, GERD, BPH, migraine variant,perodic Limb movement disorder, who lives at home with his comes because of shortness of breath. Patient is getting treated for pneumonia with Doxy and prednisone taper for last few days. As per he is sick for last 1 week. He is on oxygen 2 L at home. But since today morning he was getting more short of breath. Has mild cough. No fevers. Has some headache. Appetite is okay. No nausea ,vomiting or diarrhea. No abdominal pain. His oxygen was bumped to 2.5 L but still he was saturating only mid 80s while resting and while ambulating oxygen saturation dropping to 70s. In the ER is requiring high flow oxygen. Currently resting comfortably. Somewhat hard of hearing. helped with H&P. Patient denies any chest pain. Vision is okay. No runny nose or sore throat. Normal micturition. Past medical history. As mentioned above Past surgical history. Colonoscopy. Tonsillectomy. Social history. . No smoking. No alcohol use. No drug use. Family history. Father had asthma. Diabetes. Stroke. Mother had diabetes. Sister has diabetes. Brother has heart disease. Rheumatoid arthritis. Allergies Allergy/AdvReac Type Severity Reaction Status Date / Time cat dander Allergy Unknown watery eyes Verified 12/30/23 00:53 No Known Drug Allergies Allergy Unknown . Verified 12/30/23 00:53 SUJATHA Inhibitors AdvReac Mild Cough Verified 12/30/23 00:53 Home Medications Medication Instructions Recorded Confirmed Type albuterol sulfate 90 mcg/actuation 2 puff inhalation Q4H PRN 06/19/24 06/19/24 History aerosol inhaler Shortness Of Breath Or Wheezing amlodipine 5 mg tablet 5 mg PO DAILY 06/19/24 06/19/24 History aspirin 81 mg tablet,delayed 81 mg PO DAILY 06/19/24 06/19/24 History release atorvastatin 20 mg tablet 20 mg PO DAILY 06/19/24 06/19/24 History doxazosin 2 mg tablet 2 mg PO PM 06/19/24 06/19/24 History doxycycline hyclate 100 mg capsule 100 mg PO BID 06/19/24 06/19/24 History empagliflozin 25 mg tablet 25 mg PO DAILY 06/19/24 06/19/24 History (Jardiance) fluticasone fur. 100 mcg-umeclid 1 inh inhalation DAILY 06/19/24 06/19/24 History 62.5 mcg-vilant 25 mcg inhalat.powder (Trelegy Ellipta) glipizide 5 mg tablet 5 mg PO BID 06/19/24 06/19/24 History ipratropium bromide 0.02 % 2.5 mg continuous nebulization TID 06/19/24 06/19/24 History solution for inhalation levalbuterol HCl 1.25 mg/3 mL 1.25 mg inhalation Q4H PRN sob 06/19/24 06/19/24 History solution for nebulization levothyroxine 100 mcg tablet 100 mcg PO DAILY 06/19/24 06/19/24 History losartan 25 mg tablet 25 mg PO DAILY 06/19/24 06/19/24 History metoprolol succinate 25 mg 12.5 mg PO DAILY 06/19/24 06/19/24 History tablet,extended release 24 hr mometasone 50 mcg/actuation nasal 2 spray intranasal DAILY 06/19/24 06/19/24 History spray montelukast 10 mg tablet 10 mg PO DAILY 06/19/24 06/19/24 History omalizumab 150 mg/mL subcutaneous 150 mg subcut Q4WK 06/19/24 06/19/24 History syringe (Xolair) omeprazole 20 mg capsule,delayed 20 mg PO DAILY 06/19/24 06/19/24 History release prednisone 5 mg tablet 5 mg PO DAILY 06/19/24 06/19/24 History sodium chloride 3 % for 4 ml inhalation BID 06/19/24 06/19/24 History nebulization Past Med/Surg History Problem List (Updated 06/19/24 @ 22:18 by Aviva Michelle MD) Acute dyspnea (Acute) Non-ST elevation NC (NSTEMI) (Acute) Elevated lactic acid level (Acute) COVID-19 (Acute) Multifocal pneumonia (Acute) Acute hypoxemic respiratory failure (Acute) Acute hypoxemic respiratory failure Hypoxia (Acute) Aortic stenosis, moderate Bronchiectasis Asthma exacerbation Shortness of breath (Acute) Influenza A (Acute) Acute hypoxic respiratory failure (Acute) Obstructive sleep apnea (adult) (pediatric) Encounter for pre-operative examination DM type 2 (diabetes mellitus, type 2) (Chronic) Hypothyroidism (Chronic) Dyslipidemia (Chronic) Asthma, moderate persistent (Chronic) Allergic rhinitis (Chronic) HTN (hypertension) (Chronic) BPH (benign prostatic hyperplasia) (Chronic) Gastroesophageal reflux disease (Acute) PHILLIP on CPAP Headache (Acute) Nausea & vomiting (Acute) Acute hyponatremia (Acute) Hypokalemia (Acute) Medical History Obstructive sleep apnea (adult) (pediatric) Asthma exacerbation Osteoarthritis Chronic back pain GERD (gastroesophageal reflux disease) Hypothyroidism Diabetes mellitus, type 2 NIDDM Chronic steroid use COPD Chronic headaches Hypertension Hyperlipidemia Pneumonia annually. last 11/2019. Asthma H. pylori infection hx Surgical History History of tooth extraction History of tonsillectomy History of shoulder surgery left History of colonoscopy Family History Mother Diabetes Father Diabetes Emphysema of lung Sister Diabetes Other No family history of adverse response to anesthesia Social History Smoking Status: Never smoker Second Hand Exposure: No; Do You Dip or Chew Tobacco: No; Hx Alcohol Use: No Hx Substance Use: No Preferred Language: [place] Leonean Communication Ability: Effective Design Coordinator Required: No Beliefs That Will Affect Care: None marital status: Current Living Situation: Spouse current occupational status: retired Feels Safe at Home: Yes Safety Concerns: Feels Safe At This Time Assistive Devices: Cane, Denture - Upper, Oxygen - Continuous, Walker and Wheelchair Review of Systems Review of Systems: All systems reviewed & are unremarkable except as noted in HPI & below Physical Exam Physical Exam: General- Not in acute distress Head- atraumatic Eyes- PERRL ENT- oropharynx clear Neck- supple, no JVD. Lungs- clear to auscultation mild b/l ronchi and crackles Heart- regular rate and rhythm; no murmur, no gallop. Abdomen- normal bowel sounds, soft, nontender, no distension. Extremities- no pretibial edema, no erythema seen Neuro- alert, oriented ; PERRL, no facial palsy; no dysarthria; obeys commands, moves extremities Results & Data Results & Data Vital Signs (Past 12 Hours) Vital Signs Temp Pulse Pulse Resp BP BP Pulse Ox 06/19/24 23:15 103 H 21 144/89 H 92 06/19/24 23:00 103 H 27 H 149/83 H 92 06/19/24 22:45 93 H 24 147/86 H 93 06/19/24 22:30 98 H 26 H 147/69 H 94 06/19/24 22:15 96 H 26 H 127/94 94 06/19/24 22:00 124/94 06/19/24 22:00 95 H 28 H 124/94 93 06/19/24 21:54 112 H 28 H 93 06/19/24 21:45 113 H 24 143/91 H 94 06/19/24 21:34 113 H 28 H 152/80 H 94 06/19/24 21:31 152/80 H 06/19/24 21:31 152/80 H 06/19/24 21:30 136 H 33 H 90 06/19/24 21:18 149/87 H 06/19/24 21:18 149/87 H 06/19/24 21:18 149/87 H 06/19/24 21:18 125 H 33 H 91 06/19/24 21:17 124 H 28 H 149/87 H 93 06/19/24 21:01 125 H 30 H 161/108 H 93 06/19/24 20:48 125 H 33 H 90 06/19/24 20:47 36.8 C 119 H 32 H 156/96 H 91 06/19/24 20:46 88 L 06/19/24 20:45 156/96 H 06/19/24 20:45 156/96 H 06/19/24 20:45 156/96 H 06/19/24 20:38 115 H 28 H 154/84 H 88 L 06/19/24 20:36 154/84 H 06/19/24 20:36 154/84 H 06/19/24 20:13 109 H 30 H 151/89 H 89 L 06/19/24 20:13 109 H 30 H 88 L 06/19/24 20:07 106 H 06/19/24 19:58 37.1 C 116 H 32 H 149/97 H 89 L 06/19/24 19:57 123 H 33 H 89 L O2 Del Method O2 Flow Rate FiO2 06/19/24 23:15 High Flow Nasal Cannula 40 80 06/19/24 23:00 High Flow Nasal Cannula 40 80 06/19/24 22:45 High Flow Nasal Cannula 40 80 06/19/24 22:30 High Flow Nasal Cannula 40 80 06/19/24 22:15 High Flow Nasal Cannula 40 80 06/19/24 22:00 06/19/24 22:00 High Flow Nasal Cannula 40 80 06/19/24 21:54 06/19/24 21:45 High Flow Nasal Cannula 40 80 06/19/24 21:34 High Flow Nasal Cannula 40 80 06/19/24 21:31 06/19/24 21:31 06/19/24 21:30 06/19/24 21:18 06/19/24 21:18 06/19/24 21:18 06/19/24 21:18 06/19/24 21:17 High Flow Nasal Cannula 40 80 06/19/24 21:01 High Flow Nasal Cannula 40 80 06/19/24 20:48 06/19/24 20:47 High Flow Nasal Cannula 40 80 06/19/24 20:46 High Flow Nasal Cannula 30 80 06/19/24 20:45 06/19/24 20:45 06/19/24 20:45 06/19/24 20:38 High Flow Nasal Cannula 30 06/19/24 20:36 06/19/24 20:36 06/19/24 20:13 Nebulizer 8 06/19/24 20:13 Nebulizer 8 06/19/24 20:07 06/19/24 19:58 Oxymask 8 06/19/24 19:57 High Flow Nasal Cannula 40 80 Diagnostic Findings Laboratory Results WBC 7.62 K/ul (4.8-10.8) 06/19/24 19:55 RBC 5.36 M/uL (4.70-6.10) 06/19/24 19:55 Hgb 15.2 g/dl (14.0-18.0) 06/19/24 19:55 POC Hgb 15.6 g/dl (14.0-18.0) 06/19/24 20:02 Hct 45.3 % (42.0-52.0) 06/19/24 19:55 POC Hct 46 % (42-52) 06/19/24 20:02 MCV 84.5 fL (80.0-100.0) 06/19/24 19:55 MCH 28.4 pg (25.0-34.0) 06/19/24 19:55 MCHC 33.6 g/dL (32.0-36.0) 06/19/24 19:55 RDW Std Deviation 45.1 fL (36.4-46.3) 06/19/24 19: RDW Coeff of Zainab 14.6 % (11.5-14.5) H 06/19/24 19:55 Plt Count 221 K/uL (130-400) 06/19/24 19: MPV 10.0 fL (9.4-12.4) 06/19/24 19:55 Immature Gran % (Auto) 0.8 % 06/19/24 19:55 Neut % (Auto) 89.4 % 06/19/24 19:55 Lymph % (Auto) 6.6 % 06/19/24 19:55 [place] % (Auto) 3.1 % 06/19/24 19:55 Eos % (Auto) 0.0 % 06/19/24 19: Baso % (Auto) 0.1 % 06/19/24 19:55 Neut # (Auto) 6.81 K/uL (1.40-6.50) H 06/19/24 19:55 Lymph # (Auto) 0.50 K/uL (1.20-3.40) L 06/19/24 19:55 [place] # (Auto) 0.24 K/uL (0.11-0.59) 06/19/24 19:55 Eos # (Auto) 0.00 K/uL (0.00-0.50) 06/19/24 19:55 Baso # (Auto) 0.01 K/uL (0.00-0.20) 06/19/24 19:55 Immature Gran # (Auto) 0.06 K/uL (0.01-0.20) 06/19/24 19:55 VBG pH 7.39 (7.36-7.41) 06/19/24 19:55 VBG pCO2 38 mmHg (38-50) 06/19/24 19:55 VBG pO2 38 mmHg 06/19/24 19:55 VBG HCO3 23 mmol/L 06/19/24 19:55 VBG O2 Saturation 66.1 % 06/19/24 19:55 VBG Base Excess -1.7 mEq/L 06/19/24 19:55 POC Sodium 141 mmol/L (135-144) 06/19/24 20:02 Sodium 141 mmol/L (136-145) 06/19/24 19:55 POC Potassium 3.5 mmol/L (3.3-5.0) 06/19/24 20:02 Potassium 3.6 mmol/L (3.5-5.1) 06/19/24 19:55 POC Chloride 103 mmol/L (101-112) 06/19/24 20:02 Chloride 102 mmol/L (98-107) 06/19/24 19:55 Carbon Dioxide 22 mmol/L (21-32) 06/19/24 19:55 POC Total CO2 21 mmol/L (24-31) L 06/19/24 20:02 Anion Gap 17 (3-11) H 06/19/24 19:55 POC Anion Gap 22.0 mmol/L (16-25) 06/19/24 20:02 POC BUN 18 mg/dl (7-18) 06/19/24 20:02 BUN 19 mg/dl (6-23) 06/19/24 19:55 Creatinine 0.94 mg/dl (0.6-1.4) 06/19/24 19:55 POC Creatinine 0.9 mg/dl (0.6-1.3) 06/19/24 20:02 Est Cr Clr Drug Dosing 58.8 ml/min 06/19/24 19:55 eGFR 83.49 06/19/24 19:55 BUN/Creatinine Ratio 20.2 (10-20) H 06/19/24 19:55 Glucose 214 mg/dl (70-99(Fasting)) H 06/19/24 19:55 POC Glucose (other) 224 mg/dl (70-99) H 06/19/24 20:02 Lactate 3.2 mmol/L (0.4-2.0) H* 06/20/24 01:15 Calcium 9.3 mg/dl (8.6-10.3) 06/19/24 19:55 POC Ioniz Calcium Seb 1.09 mmol/l (1.12-1.32) L 06/19/24 20:02 Magnesium 2.1 mg/dl (1.7-2.4) 06/19/24 19:55 Total Bilirubin 0.6 mg/dl (0.2-1.0) 06/19/24 19:55 Direct Bilirubin 0.0 mg/dl (0-0.2) 06/19/24 19:55 AST 24 U/L (13-39) 06/19/24 19:55 ALT 24 U/L (7-52) 06/19/24 19:55 Alkaline Phosphatase 42 U/L (34-104) 06/19/24 19:55 Troponin I High Sens 65.0 pg/ml (0-20) H* 06/19/24 21:50 B-Natriuretic Peptide 66 pg/ml (0-100) 06/19/24 20:13 Total Protein 8.0 gm/dl (6.0-8.3) 06/19/24 19:55 Albumin 4.3 gm/dl (3.4-5.0) 06/19/24 19:55 Procalcitonin 0.04 ng/ml (0-0.5) 06/19/24 19:55 Urine Color Yellow 06/19/24 20:15 Urine Appearance Clear (Clear) 06/19/24 20:15 Urine pH 5.0 (4.5-7.5) 06/19/24 20:15 Ur Specific [place] 1.039 (1.000-1.030) H 06/19/24 20:15 Urine Protein 1+ (Negative) H 06/19/24 20:15 Urine Glucose (UA) 3+ (Negative) H 06/19/24 20:15 Urine Ketones 2+ (Negative) H 06/19/24 20:15 Urine Blood Negative (Negative) 06/19/24 20:15 Urine Nitrite Negative (Negative) 06/19/24 20:15 Urine Bilirubin Negative (Negative) 06/19/24 20:15 Urine Urobilinogen Negative (Negative) 06/19/24 20:15 Ur Leukocyte Esterase Negative (Negative) 06/19/24 20:15 Urine WBC (Auto) 0-5 /hpf (0-5) 06/19/24 20:15 Urine RBC (Auto) 0-2 /hpf (0-2) 06/19/24 20:15 U Hyaline Cast (Auto) 0-2 /lpf (0-2) 06/19/24 20:15 U Epithel Cells (Auto) 0-2 /hpf (0-2) 06/19/24 20:15 Urine Bacteria (Auto) None Seen (None Seen) 06/19/24 20:15 Adenovirus (PCR) Not Detected (NotDetected) 06/19/24 20:09 B. pertussis DNA (PCR) Not Detected (NotDetected) 06/19/24 20:09 B.parapertussis DNA PCR Not Detected (NotDetected) 06/19/24 20:09 C. pneumoniae DNA (PCR) Not Detected (NotDetected) 06/19/24 20:09 Coronavirus OC43 (PCR) Not Detected (NotDetected) 06/19/24 20:09 Coronavirus HKU1 (PCR) Not Detected (NotDetected) 06/19/24 20:09 Coronavirus 229E (PCR) Not Detected (NotDetected) 06/19/24 20:09 SARS-CoV-2 (PCR) DETECTED (NotDetected) A 06/19/24 20:09 Coronavirus NL63 (PCR) Not Detected (NotDetected) 06/19/24 20:09 Human Metapneumovir PCR Not Detected (NotDetected) 06/19/24 20:09 Influenza Type A (PCR) Not Detected (NotDetected) 06/19/24 20:09 Influenza Type B (PCR) Not Detected (NotDetected) 06/19/24 20:09 M. pneumoniae (PCR) Not Detected (NotDetected) 06/19/24 20:09 Parainfluenza 1 (PCR) Not Detected (NotDetected) 06/19/24 20:09 Parainfluenza 2 (PCR) Not Detected (NotDetected) 06/19/24 20:09 Parainfluenza 3 (PCR) Not Detected (NotDetected) 06/19/24 20:09 Parainfluenza 4 (PCR) Not Detected (NotDetected) 06/19/24 20:09 RSV (PCR) Not Detected (NotDetected) 06/19/24 20:09 Entero/Rhino (PCR) Not Detected (NotDetected) 06/19/24 20:09 ECG Additional Comments: ECG sinus tachycardia with PACs at a rate of 106. T wave inversions in inferior leads. QTc 459 Code Status & VTE Plan VTE Prophylaxis Plan VTE Prophylaxis will be ordered: Yes
[2024-06-20] MEDS: SODIUM CHLORIDE 0.9% 500 ML IV SCH (02:32)
[2024-06-20] MEDS: INSULIN ASPART PER UNIT CHARGE SC SCH (02:39)
[2024-06-20] MEDS: LANTUS PER UNIT CHARGE SQ ONE (02:39)
[2024-06-20] MEDS: ALUMINUM/MAGNESIUM/SIMETH (MAALOX MAX) 30 ML UDC PO STA (03:27)
[2024-06-20] MEDS: VANCOMYCIN HCL 1,250 MG in SODIUM CHLORIDE 0.9% 250 ML IV SCH (05:33)
[2024-06-20] MEDS: LEVOTHYROXINE SODIUM 100 MCG TABLET PO SCH (05:35)
[2024-06-20] MEDS: ALBUT/IPRATROP 3MG/0.5MG NEB 3 ML VIAL NEB SCH (06:38)
[2024-06-20] MEDS: SODIUM CHLOR 7% 4 ML NEB NEB SCH (06:39)
[2024-06-20 07:14] LABS: Hematocrit (blood only) 41.5 % (42.0-52.0); Hemoglobin 13.9 g/dl (14.0-18.0); Immature Granulocytes # (auto) 0.05 K/uL (0.01-0.20); Immature Granulocytes % (auto) 0.9 %; Lymphocytes # (auto) 0.44 K/uL (1.20-3.40); Lymphocytes % (auto) 8.1 %; Mean Corpuscular Hemoglobin 28.3 pg (25.0-34.0); Mean Corpuscular Hgb Conc 33.5 g/dL (32.0-36.0); Mean Corpuscular Volume 84.3 fL (80.0-100.0); Mean Platelet Volume 9.6 fL (9.4-12.4); Monocytes # (auto) 0.35 K/uL (0.11-0.59); Monocytes % (auto) 6.4 %; Neutrophils % (auto) 84.6 %; Platelet Count 189 K/uL (130-400); RDW Coefficient of Variation 14.6 % (11.5-14.5); Red Blood Count 4.92 M/uL (4.70-6.10); White Blood Count 5.44 K/ul (4.8-10.8)
--- NOTE | 2024-06-20 07:15 | Electrocardiogram Report ---
Test Reason : Blood Pressure : */* mmHG Vent. Rate : 101 BPM Atrial Rate : 101 BPM P-R Int : 130 ms QRS Dur : 72 ms QT Int : 338 ms P-R-T Axes : 38 6 34 degrees QTcB Int : 438 ms Sinus tachycardia with occasional Premature ventricular complexes and atrial complexes Nonspecific ST and T wave abnormality Abnormal ECG When compared with ECG of 29-Dec-2023 21:54, Premature ventricular complexes are now Present Confirmed by Patricio Zuniga ([id number]) on 06/20/2024 7:15:48 AM Referred By: REFERRED SELF Confirmed By: Patricio Zuniga
[2024-06-20 07:23] LABS: Estimated Average Glucose 200 mg/dl; Hemoglobin A1C 8.6 % (4.5-5.6)
[2024-06-20 07:33] LABS: Albumin Level 3.8 gm/dl (3.4-5.0); BUN Creatinine Ratio 20.5 (10-20); Bilirubin Direct 0.1 mg/dl (0-0.2); Bilirubin,Total 0.5 mg/dl (0.2-1.0); Calcium 8.4 mg/dl (8.6-10.3); Creatinine Clr Calc Pharmacy 62.7 ml/min; Magnesium 2.3 mg/dl (1.7-2.4); Potassium 3.6 mmol/L (3.5-5.1); Total Protein 7.1 gm/dl (6.0-8.3)
[2024-06-20 07:42] LABS: Troponin I High Sensitivity 788.9 pg/ml (0-20)
--- NOTE | 2024-06-20 07:59 | Pulmonary Consultation ---
Date of Consultation June 20, 2024 Assessment & Plan (1) Multifocal pneumonia: (2) COVID-19: (3) Acute hypoxemic respiratory failure: (4) Bronchiectasis: (5) Asthma, moderate persistent: Plan CTA chest 06/19/2024 personally reviewed: Diffuse groundglass opacities appreciated bilaterally upper and lower lobes Right upper lobe granuloma Elevated right hemidiaphragm with dependent ectasis Minimal cylindrical bronchiectasis bilateral lower lobes more on the left side No significant mediastinal lymphadenopathy Spirometry 08/05/2019 personally reviewed: Nonspecific spirometry with no obstruction FVC 2.27 L 67%, FEV1 1.95 to 73%, FEV1/FVC 86% --Acute hypoxic respiratory failure Secondary to multilobar COVID-19 pneumonia On Breo, Spiriva, Arnuity at home. 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 Respiratory bio fire positive for COVID-19 on 06/20/2024 Procalcitonin 0.04 --Bronchiectasis Bilateral lower lobes On the long-term patient will benefit from upper airway clearance technique with hypertonic saline, flutter valve as well as Mucinex --PHILLIP Polysomnography 05/06/2019: AHI 11.2, severe PLMD Unable to tolerate CPAP --Chronic prednisone use 5 mg on a daily basis currently Plan: Continue with dexamethasone I think patient is past the time for remdesivir, I will defer to the primary team Okay to discontinue cefepime and vancomycin given procalcitonin is negative and nasal MRSA also negative Continue with O2 supplementation to keep oxygen saturation between 90-92%. Awake proning will be helpful Continue with incentive spirometry Continue with flutter valve. Recommend patient to be kept euvolemic to negative balance after initial fluid resuscitation I discussed BiPAP as well as intubation with the patient. He said he is very claustrophobic and would not want BiPAP and/or intubation even if it is a question of life and . Patient's was in the room who concurred with his wishes I will change the CODE STATUS to DNR/DNI in the chart Case was discussed with RN Please note the above document was generated using voice recognition software. It may contain grammatical, syntax or spelling errors.Any formal questions or concerns about the content, text or information contained within the body of this dictation should be directly addressed to the provider for clarification. History of Present Illness Attending Physician: Paulie Witt MD History of Present Illness 78-year-old male coming to hospital for shortness of breath Past medical history: PHILLIP unable to tolerate CPAP, hypertension, diabetes, dyslipidemia, hypothyroidism, on chronic prednisone 5 mg Pulmonary consulted for COVID-19 Patient follows up with Dr. Paul for his allergies and is on Xolair. At the time of examination patient's was also in the room He was saturating 90-91% on 40 L, 70% high flow He was not in any respiratory distress, breathing in the high teens to low 20s. He said that he has been having symptoms approximately Saturday of the this week. He followed up with the primary doctor who gave prednisone and doxycycline to be used. He usually gets this combination whenever he complains of breathing and most of the time at work but this time he felt worse after a day. Saturation was in the 70s at his home and that is why he came to the ER Denies any chest congestion. When he brings up phlegm is mostly clear. Denies any nausea or vomiting. Denies any dysuria, or diarrhea No headache, no blurry vision Denies any fever or chills Social history: Lifetime non-smoker. 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 Used to have cats in the past Allergies Allergy/AdvReac Type Severity Reaction Status Date / Time cat dander Allergy Unknown watery eyes Verified 12/30/23 00:53 No Known Drug Allergies Allergy Unknown . Verified 12/30/23 00:53 SUJATHA Inhibitors AdvReac Mild Cough Verified 12/30/23 00:53 Home Medications Medication Instructions Recorded Confirmed Type albuterol sulfate 90 mcg/actuation 2 puff inhalation Q4H PRN 06/19/24 06/19/24 History aerosol inhaler Shortness Of Breath Or Wheezing amlodipine 5 mg tablet 5 mg PO DAILY 06/19/24 06/19/24 History aspirin 81 mg tablet,delayed 81 mg PO DAILY 06/19/24 06/19/24 History release atorvastatin 20 mg tablet 20 mg PO DAILY 06/19/24 06/19/24 History doxazosin 2 mg tablet 2 mg PO PM 06/19/24 06/19/24 History doxycycline hyclate 100 mg capsule 100 mg PO BID 06/19/24 06/19/24 History empagliflozin 25 mg tablet 25 mg PO DAILY 06/19/24 06/19/24 History (Jardiance) fluticasone fur. 100 mcg-umeclid 1 inh inhalation DAILY 06/19/24 06/19/24 History 62.5 mcg-vilant 25 mcg inhalat.powder (Trelegy Ellipta) glipizide 5 mg tablet 5 mg PO BID 06/19/24 06/19/24 History ipratropium bromide 0.02 % 2.5 mg continuous nebulization TID 06/19/24 06/19/24 History solution for inhalation levalbuterol HCl 1.25 mg/3 mL 1.25 mg inhalation Q4H PRN sob 06/19/24 06/19/24 History solution for nebulization levothyroxine 100 mcg tablet 100 mcg PO DAILY 06/19/24 06/19/24 History losartan 25 mg tablet 25 mg PO DAILY 06/19/24 06/19/24 History metoprolol succinate 25 mg 12.5 mg PO DAILY 06/19/24 06/19/24 History tablet,extended release 24 hr mometasone 50 mcg/actuation nasal 2 spray intranasal DAILY 06/19/24 06/19/24 History spray montelukast 10 mg tablet 10 mg PO DAILY 06/19/24 06/19/24 History omalizumab 150 mg/mL subcutaneous 150 mg subcut Q4WK 06/19/24 06/19/24 History syringe (Xolair) omeprazole 20 mg capsule,delayed 20 mg PO DAILY 06/19/24 06/19/24 History release prednisone 5 mg tablet 5 mg PO DAILY 06/19/24 06/19/24 History sodium chloride 3 % for 4 ml inhalation BID 06/19/24 06/19/24 History nebulization Patient History Medical History Obstructive sleep apnea (adult) (pediatric) Asthma exacerbation Osteoarthritis Chronic back pain GERD (gastroesophageal reflux disease) Hypothyroidism Diabetes mellitus, type 2 NIDDM Chronic steroid use COPD Chronic headaches Hypertension Hyperlipidemia Pneumonia annually. last 11/2019. Asthma H. 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 Beliefs That Will Affect Care: None marital status: Current Living Situation: Spouse current occupational status: retired Feels Safe at Home: Yes Safety Concerns: Feels Safe At This Time Assistive Devices: Cane, Denture - Upper, Oxygen - Continuous, Walker and Wheelchair Review of Systems 2 Review of Systems: All systems reviewed & are unremarkable except as noted in HPI & below Physical Exam 2 Physical Exam: Constitutional: No acute distress HEENT: EOMI, PERRLA Respiratory system: Decreased air entry bilaterally, No rhonchi, positive crackles bilateral lower lobes, no clear wheeze CVS: S1-S2 positive, no murmurs or gallops, distant heart sounds, tachycardia Abdomen: Soft, nontender, nondistended, positive bowel sounds x4 Extremities: +2 pulses bilaterally radialis/ dorsalis pedis, no cyanosis, no edema Neuro: Awake alert oriented x3 Psych: Normal mood and affect G/U: No Abad Skin: no rashes, warm and dry Lymphatic: no cervical or axillary lymphadenopathy Results & Data Results & Data Vital Signs (Past 12 Hours) Vital Signs Temp Pulse Pulse Resp BP BP Pulse Ox 06/20/24 07:08 37.0 C 98 H 22 152/90 H 90 06/20/24 06:39 78 22 92 06/20/24 03:05 36.9 C 85 22 151/79 H 93 06/20/24 02:00 87 06/20/24 01:20 06/20/24 00:57 36.6 C 94 H 22 143/77 H 89 L 06/19/24 23:45 95 H 24 150/90 H 93 06/19/24 23:30 97 H 22 149/85 H 93 06/19/24 23:15 103 H 21 144/89 H 92 06/19/24 23:01 104 H 26 H 93 06/19/24 23:00 103 H 27 H 149/83 H 92 06/19/24 22:45 93 H 24 147/86 H 93 06/19/24 22:30 98 H 26 H 147/69 H 94 06/19/24 22:15 96 H 26 H 127/94 94 06/19/24 22:00 124/94 06/19/24 22:00 95 H 28 H 124/94 93 06/19/24 21:54 112 H 28 H 93 06/19/24 21:45 113 H 24 143/91 H 94 06/19/24 21:34 113 H 28 H 152/80 H 94 06/19/24 21:31 152/80 H 06/19/24 21:31 152/80 H 06/19/24 21:30 136 H 33 H 90 06/19/24 21:18 149/87 H 06/19/24 21:18 149/87 H 06/19/24 21:18 149/87 H 06/19/24 21:18 125 H 33 H 91 06/19/24 21:17 124 H 28 H 149/87 H 93 06/19/24 21:01 125 H 30 H 161/108 H 93 06/19/24 20:48 125 H 33 H 90 06/19/24 20:47 36.8 C 119 H 32 H 156/96 H 91 06/19/24 20:46 88 L 06/19/24 20:45 156/96 H 06/19/24 20:45 156/96 H 06/19/24 20:45 156/96 H 06/19/24 20:38 115 H 28 H 154/84 H 88 L 06/19/24 20:36 154/84 H 06/19/24 20:36 154/84 H 06/19/24 20:13 109 H 30 H 151/89 H 89 L 06/19/24 20:13 109 H 30 H 88 L 06/19/24 20:07 106 H 06/19/24 19:58 37.1 C 116 H 32 H 149/97 H 89 L 06/19/24 19:57 123 H 33 H 89 L O2 Del Method O2 Flow Rate FiO2 06/20/24 07:08 High Flow Nasal Cannula 06/20/24 06:39 High Flow Nasal Cannula 40 70 06/20/24 03:05 High Flow Nasal Cannula 40 70 06/20/24 02:00 06/20/24 01:20 High Flow Nasal Cannula 06/20/24 00:57 High Flow Nasal Cannula 40 70 06/19/24 23:45 High Flow Nasal Cannula 40 80 06/19/24 23:30 High Flow Nasal Cannula 40 80 06/19/24 23:15 High Flow Nasal Cannula 40 80 06/19/24 23:01 High Flow Nasal Cannula 40 70 06/19/24 23:00 High Flow Nasal Cannula 40 80 06/19/24 22:45 High Flow Nasal Cannula 40 80 06/19/24 22:30 High Flow Nasal Cannula 40 80 06/19/24 22:15 High Flow Nasal Cannula 40 80 06/19/24 22:00 06/19/24 22:00 High Flow Nasal Cannula 40 80 06/19/24 21:54 06/19/24 21:45 High Flow Nasal Cannula 40 80 06/19/24 21:34 High Flow Nasal Cannula 40 80 06/19/24 21:31 06/19/24 21:31 06/19/24 21:30 06/19/24 21:18 06/19/24 21:18 06/19/24 21:18 06/19/24 21:18 06/19/24 21:17 High Flow Nasal Cannula 40 80 06/19/24 21:01 High Flow Nasal Cannula 40 80 06/19/24 20:48 06/19/24 20:47 High Flow Nasal Cannula 40 80 06/19/24 20:46 High Flow Nasal Cannula 30 80 06/19/24 20:45 06/19/24 20:45 06/19/24 20:45 06/19/24 20:38 High Flow Nasal Cannula 30 06/19/24 20:36 06/19/24 20:36 06/19/24 20:13 Nebulizer 8 06/19/24 20:13 Nebulizer 8 06/19/24 20:07 06/19/24 19:58 Oxymask 8 06/19/24 19:57 High Flow Nasal Cannula 40 80 Laboratory Results 06/20/24 06:50 06/20/24 06:50 PG Care Time/CCT Total # of Minutes Spent Total Time Spent with Patient: Total time spent is greater than 50% in coordination of care (as documented) at patient's floor/unit and/or counseling patient: Coding Level of Care Code 24566 INT INP/OBS CARE 3/75MIN Diagnoses Multifocal pneumonia J18.9 COVID-19 U07.1 Acute hypoxemic respiratory failure J96.01 Bronchiectasis J47.9 Asthma, moderate persistent J45.40
[2024-06-20] MEDS: ACETAMINOPHEN 325 MG TAB PO PRN (08:30)
[2024-06-20] MEDS: methylPREDNISolone 40 MG in SYRINGE 0 ML IV SCH (08:35)
[2024-06-20] MEDS: CEFEPIME 2000MG 2,000 MG/20 ML SYR IV SCH (08:35)
[2024-06-20] MEDS: DOXYCYCLINE HYCLATE 100 MG CAP PO SCH (08:36)
[2024-06-20] MEDS: LOSARTAN POTASSIUM 25 MG TAB PO SCH (08:36)
[2024-06-20] MEDS: PANTOprazole 40 MG TAB PO SCH (08:36)
[2024-06-20] MEDS: ASPIRIN 81 MG ECTAB PO SCH (08:36)
[2024-06-20] MEDS: FLUTICASONE FUROATE 100MCG 14 PUFFS/INHALER INH SCH (08:38)
[2024-06-20] MEDS: MONTELUKAST SODIUM 10 MG TABLET PO SCH (08:38)
[2024-06-20] MEDS: ATORVASTATIN 20 MG TAB PO SCH (08:38)
[2024-06-20] MEDS: amLODIPine BESYLATE 5 MG TAB PO SCH (08:38)
--- NOTE | 2024-06-20 08:40 | Hospitalist Progress Note ---
Date of Service June 20, 2024 Assessment & Plan (1) Acute hypoxemic respiratory failure: Plan: 78-year-old male with past medical history significant for type 2 diabetes, hypothyroidism, hyperlipidemia, obstructive sleep apnea noncompliant with CPAP, severe persistent asthma dependent on systemic steroids, restrictive lung disease, neuromuscular respiratory weakness, chronic heart failure with preserved ejection fraction, hypertension, mild aortic stenosis, GERD, BPH, migraine variant, periodic Limb movement disorder, who lives at home with his comes because of shortness of breath. Patient is getting treated for pneumonia with Doxy and prednisone taper for last few days. As per he is sick for last 1 week. He is on oxygen 2 L at home. But since today morning he was getting more short of breath. Has mild cough. No fevers. Has some headache. Appetite is okay. No nausea ,vomiting or diarrhea. No abdominal pain. His oxygen was bumped to 2.5 L but still he was saturating only mid 80s while resting and while ambulating oxygen saturation dropping to 70s. In the ER is requiring high flow oxygen. Currently resting comfortably. Somewhat hard of hearing. helped with H&P. Patient denies any chest pain. Vision is okay. No runny nose or sore throat. Normal micturition. Acute hypoxemic respiratory failure Multifocal pneumonia COVID Asthma exacerbation Requiring high flow oxygen VBG obtained CTA chest - negative for PE 1. Accounting for limitations with extensive respiratory artifact, there is no definite evidence for large/central pulmonary embolism. The majority of the subsegmental and distal pulmonary artery segments are of nondiagnostic quality. 2. Extensive patchy confluent irregular ground-glass opacities now identified diffusely throughout the lungs, most prominent in the right lung apex. The primary consideration is pneumonia, to include atypical bacterial and viral etiologies. No pleural effusion or pneumothorax. Pulmonary medicine consulted - recommend to DC cefepime, vanco, MRSA swab negat. COVID COVID precautions Remdesivir and follow remdesivir labs Steroids Close monitor Multifocal pneumonia Follow CT chest On Vanco and cefepime Complete p.o. doxycycline started as outpatient Follow the response Asthma (steroid dependent)exacerbation from above Restrictive lung disease Neuromuscular respiratory weakness DuoNebs ATC and as needed Hypertonic saline neb twice daily IV Solu-Medrol 40 mg 3 times daily Antibiotics as above Currently on high flow Continue home inhalers Hold home p.o. prednisone while getting IV steroids Pulmonary consulted Obstructive sleep apnea non compliant with CPAP On home oxygen Currently on high flow try cpap tonight Elevated lactic acid Mostly from respiratory distress Trending down Will follow repeat levels Elevated troponin troponin this AM 788 Echo obtained and reviewed results read by cardiology cardiology consulted, likely demand ischemia Chronic heart failure with preserved infection Mild aortic stenosis Monitor for volume overload Type 2 diabetes Hold home p.o. medications Lantus and sliding scale Close monitor while on steroids Glycemic pharmacy consult Current HbA1c level 8.6% Hypothyroidism On Synthyroid Will follow TSH Hypertension Amlodipine and losartan and metoprolol succinate and doxazosin with holding parameters GERD On omeprazole BPH On doxazosin Monitor for urinary retention Hyperlipidemia On statin DVT prophylaxis Lovenox Disposition Telemetry Full code per discussion with the Admission and Anticipated Discharge Date Admission Date: June 19, 2024 Subjective Pt seen in follow up of Acute hypoxic resp. failure + COVID Sitting up in chair on high flow NC Pt's present at the bedside Pt seems very tired, but denies chest pain, cont. to have difficulty breathing, + cough No abd. pain, n/v Pulmonary consulted and discussed with - reviewed CT PE - no PE Trop elevated - echo obtained, cardiology contacted Review of Systems Review of Systems: All systems reviewed & are unremarkable except as noted in Subjective Physical Exam Physical Exam: General- WD/WN M on HF NC, sitting up in chair Head- atraumatic Eyes- PERRL Neck- supple Lungs- + b/l ronchi and crackles Heart- regular rate and rhythm; no murmur Abdomen- normal bowel sounds, soft, nontender, no distension. Extremities- no pretibial edema, no erythema seen Neuro- alert, oriented ; PERRL, no facial palsy; no dysarthria; obeys commands, moves extremities Results & Data Results & Data Vital Signs (Past 12 Hours) Vital Signs Temp Pulse Pulse Resp BP BP Pulse Ox 06/20/24 07:08 37.0 C 98 H 22 152/90 H 90 06/20/24 06:39 78 22 92 06/20/24 03:05 36.9 C 85 22 151/79 H 93 06/20/24 02:00 87 06/20/24 01:20 06/20/24 00:57 36.6 C 94 H 22 143/77 H 89 L 06/19/24 23:45 95 H 24 150/90 H 93 06/19/24 23:30 97 H 22 149/85 H 93 06/19/24 23:15 103 H 21 144/89 H 92 06/19/24 23:01 104 H 26 H 93 06/19/24 23:00 103 H 27 H 149/83 H 92 06/19/24 22:45 93 H 24 147/86 H 93 06/19/24 22:30 98 H 26 H 147/69 H 94 06/19/24 22:15 96 H 26 H 127/94 94 06/19/24 22:00 124/94 06/19/24 22:00 95 H 28 H 124/94 93 06/19/24 21:54 112 H 28 H 93 06/19/24 21:45 113 H 24 143/91 H 94 06/19/24 21:34 113 H 28 H 152/80 H 94 06/19/24 21:31 152/80 H 06/19/24 21:31 152/80 H 06/19/24 21:30 136 H 33 H 90 06/19/24 21:18 149/87 H 06/19/24 21:18 149/87 H 06/19/24 21:18 149/87 H 06/19/24 21:18 125 H 33 H 91 06/19/24 21:17 124 H 28 H 149/87 H 93 06/19/24 21:01 125 H 30 H 161/108 H 93 06/19/24 20:48 125 H 33 H 90 06/19/24 20:47 36.8 C 119 H 32 H 156/96 H 91 06/19/24 20:46 88 L 06/19/24 20:45 156/96 H 06/19/24 20:45 156/96 H 06/19/24 20:45 156/96 H O2 Del Method O2 Flow Rate FiO2 06/20/24 07:08 High Flow Nasal Cannula 06/20/24 06:39 High Flow Nasal Cannula 40 70 06/20/24 03:05 High Flow Nasal Cannula 40 70 06/20/24 02:00 06/20/24 01:20 High Flow Nasal Cannula 06/20/24 00:57 High Flow Nasal Cannula 40 70 06/19/24 23:45 High Flow Nasal Cannula 40 80 06/19/24 23:30 High Flow Nasal Cannula 40 80 06/19/24 23:15 High Flow Nasal Cannula 40 80 06/19/24 23:01 High Flow Nasal Cannula 40 70 06/19/24 23:00 High Flow Nasal Cannula 40 80 06/19/24 22:45 High Flow Nasal Cannula 40 80 06/19/24 22:30 High Flow Nasal Cannula 40 80 06/19/24 22:15 High Flow Nasal Cannula 40 80 06/19/24 22:00 06/19/24 22:00 High Flow Nasal Cannula 40 80 06/19/24 21:54 06/19/24 21:45 High Flow Nasal Cannula 40 80 06/19/24 21:34 High Flow Nasal Cannula 40 80 06/19/24 21:31 06/19/24 21:31 06/19/24 21:30 06/19/24 21:18 06/19/24 21:18 06/19/24 21:18 06/19/24 21:18 06/19/24 21:17 High Flow Nasal Cannula 40 80 06/19/24 21:01 High Flow Nasal Cannula 40 80 06/19/24 20:48 06/19/24 20:47 High Flow Nasal Cannula 40 80 06/19/24 20:46 High Flow Nasal Cannula 30 80 06/19/24 20:45 06/19/24 20:45 06/19/24 20:45 Laboratory Results 06/20/24 06/20/24 06/20/24 Range/Units 07:07 06:57 06:50 WBC 5.44 (4.8-10.8) K/ul RBC 4.92 (4.70-6.10) M/uL Hgb 13.9 L (14.0-18.0) g/dl POC Hgb (14.0-18.0) g/dl Hct 41.5 L (42.0-52.0) % POC Hct (42-52) % MCV 84.3 (80.0-100.0) fL MCH 28.3 (25.0-34.0) pg MCHC 33.5 (32.0-36.0) g/dL RDW Std Deviation 45.0 (36.4-46.3) fL RDW Coeff of Zainab 14.6 H (11.5-14.5) % Plt Count 189 (130-400) K/uL MPV 9.6 (9.4-12.4) fL Immature Gran % (Auto) 0.9 % Neut % (Auto) 84.6 % Lymph % (Auto) 8.1 % [place] % (Auto) 6.4 % Eos % (Auto) 0.0 % Baso % (Auto) 0.0 % Neut # (Auto) 4.60 (1.40-6.50) K/uL Lymph # (Auto) 0.44 L (1.20-3.40) K/uL [place] # (Auto) 0.35 (0.11-0.59) K/uL Eos # (Auto) 0.00 (0.00-0.50) K/uL Baso # (Auto) 0.00 (0.00-0.20) K/uL Immature Gran # (Auto) 0.05 (0.01-0.20) K/uL VBG pH (7.36-7.41) VBG pCO2 (38-50) mmHg VBG pO2 mmHg VBG HCO3 mmol/L VBG O2 Saturation % VBG Base Excess mEq/L POC Sodium (135-144) mmol/L Sodium 145 (136-145) mmol/L POC Potassium (3.3-5.0) mmol/L Potassium 3.6 (3.5-5.1) mmol/L POC Chloride (101-112) mmol/L Chloride 111 H (98-107) mmol/L Carbon Dioxide 22 (21-32) mmol/L POC Total CO2 (24-31) mmol/L Anion Gap 12 H (3-11) POC Anion Gap (16-25) mmol/L POC BUN (7-18) mg/dl BUN 18 (6-23) mg/dl Creatinine 0.88 (0.6-1.4) mg/dl POC Creatinine (0.6-1.3) mg/dl Est Cr Clr Drug Dosing 62.7 ml/min eGFR 88.56 BUN/Creatinine Ratio 20.5 H (10-20) Glucose 162 H (70-99(Fasting)) mg/dl POC Glucose 145 H (70-99) mg/dl POC Glucose (other) (70-99) mg/dl Estimat Average Glucose 200 mg/dl Hemoglobin A1c 8.6 H (4.5-5.6) % Lactate 2.2 H* (0.4-2.0) mmol/L Calcium 8.4 L (8.6-10.3) mg/dl POC Ioniz Calcium Seb (1.12-1.32) mmol/l Magnesium 2.3 (1.7-2.4) mg/dl Total Bilirubin 0.5 (0.2-1.0) mg/dl Direct Bilirubin 0.1 (0-0.2) mg/dl AST 23 (13-39) U/L ALT 19 (7-52) U/L Alkaline Phosphatase 33 L (34-104) U/L Troponin I High Sens 788.9 H* D (0-20) pg/ml B-Natriuretic Peptide (0-100) pg/ml Total Protein 7.1 (6.0-8.3) gm/dl Albumin 3.8 (3.4-5.0) gm/dl Procalcitonin (0-0.5) ng/ml Urine Color Urine Appearance (Clear) Urine pH (4.5-7.5) Ur Specific [place] (1.000-1.030) Urine Protein (Negative) Urine Glucose (UA) (Negative) Urine Ketones (Negative) Urine Blood (Negative) Urine Nitrite (Negative) Urine Bilirubin (Negative) Urine Urobilinogen (Negative) Ur Leukocyte Esterase (Negative) Urine WBC (Auto) (0-5) /hpf Urine RBC (Auto) (0-2) /hpf U Hyaline Cast (Auto) (0-2) /lpf U Epithel Cells (Auto) (0-2) /hpf Urine Bacteria (Auto) (None Seen) Nasal Screen MRSA (PCR) (Negative) Adenovirus (PCR) (NotDetected) B. pertussis DNA (PCR) (NotDetected) B.parapertussis DNA PCR (NotDetected) C. pneumoniae DNA (PCR) (NotDetected) Coronavirus OC43 (PCR) (NotDetected) Coronavirus HKU1 (PCR) (NotDetected) Coronavirus 229E (PCR) (NotDetected) SARS-CoV-2 (PCR) (NotDetected) Coronavirus NL63 (PCR) (NotDetected) Human Metapneumovir PCR (NotDetected) Influenza Type A (PCR) (NotDetected) Influenza Type B (PCR) (NotDetected) M. pneumoniae (PCR) (NotDetected) Parainfluenza 1 (PCR) (NotDetected) Parainfluenza 2 (PCR) (NotDetected) Parainfluenza 3 (PCR) (NotDetected) Parainfluenza 4 (PCR) (NotDetected) RSV (PCR) (NotDetected) Entero/Rhino (PCR) (NotDetected) 06/20/24 06/20/24 06/20/24 Range/Units 02:50 02:27 01:15 WBC (4.8-10.8) K/ul RBC (4.70-6.10) M/uL Hgb (14.0-18.0) g/dl POC Hgb (14.0-18.0) g/dl Hct (42.0-52.0) % POC Hct (42-52) % MCV (80.0-100.0) fL MCH (25.0-34.0) pg MCHC (32.0-36.0) g/dL RDW Std Deviation (36.4-46.3) fL RDW Coeff of Zainab (11.5-14.5) % Plt Count (130-400) K/uL MPV (9.4-12.4) fL Immature Gran % (Auto) % Neut % (Auto) % Lymph % (Auto) % [place] % (Auto) % Eos % (Auto) % Baso % (Auto) % Neut # (Auto) (1.40-6.50) K/uL Lymph # (Auto) (1.20-3.40) K/uL [place] # (Auto) (0.11-0.59) K/uL Eos # (Auto) (0.00-0.50) K/uL Baso # (Auto) (0.00-0.20) K/uL Immature Gran # (Auto) (0.01-0.20) K/uL VBG pH (7.36-7.41) VBG pCO2 (38-50) mmHg VBG pO2 mmHg VBG HCO3 mmol/L VBG O2 Saturation % VBG Base Excess mEq/L POC Sodium (135-144) mmol/L Sodium (136-145) mmol/L POC Potassium (3.3-5.0) mmol/L Potassium (3.5-5.1) mmol/L POC Chloride (101-112) mmol/L Chloride (98-107) mmol/L Carbon Dioxide (21-32) mmol/L POC Total CO2 (24-31) mmol/L Anion Gap (3-11) POC Anion Gap (16-25) mmol/L POC BUN (7-18) mg/dl BUN (6-23) mg/dl Creatinine (0.6-1.4) mg/dl POC Creatinine (0.6-1.3) mg/dl Est Cr Clr Drug Dosing ml/min eGFR BUN/Creatinine Ratio (10-20) Glucose (70-99(Fasting)) mg/dl POC Glucose 204 H (70-99) mg/dl POC Glucose (other) (70-99) mg/dl Estimat Average Glucose mg/dl Hemoglobin A1c (4.5-5.6) % Lactate 3.2 H* (0.4-2.0) mmol/L Calcium (8.6-10.3) mg/dl POC Ioniz Calcium Seb (1.12-1.32) mmol/l Magnesium (1.7-2.4) mg/dl Total Bilirubin (0.2-1.0) mg/dl Direct Bilirubin (0-0.2) mg/dl AST (13-39) U/L ALT (7-52) U/L Alkaline Phosphatase (34-104) U/L Troponin I High Sens (0-20) pg/ml B-Natriuretic Peptide (0-100) pg/ml Total Protein (6.0-8.3) gm/dl Albumin (3.4-5.0) gm/dl Procalcitonin (0-0.5) ng/ml Urine Color Urine Appearance (Clear) Urine pH (4.5-7.5) Ur Specific [place] (1.000-1.030) Urine Protein (Negative) Urine Glucose (UA) (Negative) Urine Ketones (Negative) Urine Blood (Negative) Urine Nitrite (Negative) Urine Bilirubin (Negative) Urine Urobilinogen (Negative) Ur Leukocyte Esterase (Negative) Urine WBC (Auto) (0-5) /hpf Urine RBC (Auto) (0-2) /hpf U Hyaline Cast (Auto) (0-2) /lpf U Epithel Cells (Auto) (0-2) /hpf Urine Bacteria (Auto) (None Seen) Nasal Screen MRSA (PCR) Negative (Negative) Adenovirus (PCR) (NotDetected) B. pertussis DNA (PCR) (NotDetected) B.parapertussis DNA PCR (NotDetected) C. pneumoniae DNA (PCR) (NotDetected) Coronavirus OC43 (PCR) (NotDetected) Coronavirus HKU1 (PCR) (NotDetected) Coronavirus 229E (PCR) (NotDetected) SARS-CoV-2 (PCR) (NotDetected) Coronavirus NL63 (PCR) (NotDetected) Human Metapneumovir PCR (NotDetected) Influenza Type A (PCR) (NotDetected) Influenza Type B (PCR) (NotDetected) M. pneumoniae (PCR) (NotDetected) Parainfluenza 1 (PCR) (NotDetected) Parainfluenza 2 (PCR) (NotDetected) Parainfluenza 3 (PCR) (NotDetected) Parainfluenza 4 (PCR) (NotDetected) RSV (PCR) (NotDetected) Entero/Rhino (PCR) (NotDetected) 06/19/24 06/19/24 06/19/24 Range/Units 21:50 20:15 20:13 WBC (4.8-10.8) K/ul RBC (4.70-6.10) M/uL Hgb (14.0-18.0) g/dl POC Hgb (14.0-18.0) g/dl Hct (42.0-52.0) % POC Hct (42-52) % MCV (80.0-100.0) fL MCH (25.0-34.0) pg MCHC (32.0-36.0) g/dL RDW Std Deviation (36.4-46.3) fL RDW Coeff of Zainab (11.5-14.5) % Plt Count (130-400) K/uL MPV (9.4-12.4) fL Immature Gran % (Auto) % Neut % (Auto) % Lymph % (Auto) % [place] % (Auto) % Eos % (Auto) % Baso % (Auto) % Neut # (Auto) (1.40-6.50) K/uL Lymph # (Auto) (1.20-3.40) K/uL [place] # (Auto) (0.11-0.59) K/uL Eos # (Auto) (0.00-0.50) K/uL Baso # (Auto) (0.00-0.20) K/uL Immature Gran # (Auto) (0.01-0.20) K/uL VBG pH (7.36-7.41) VBG pCO2 (38-50) mmHg VBG pO2 mmHg VBG HCO3 mmol/L VBG O2 Saturation % VBG Base Excess mEq/L POC Sodium (135-144) mmol/L Sodium (136-145) mmol/L POC Potassium (3.3-5.0) mmol/L Potassium (3.5-5.1) mmol/L POC Chloride (101-112) mmol/L Chloride (98-107) mmol/L Carbon Dioxide (21-32) mmol/L POC Total CO2 (24-31) mmol/L Anion Gap (3-11) POC Anion Gap (16-25) mmol/L POC BUN (7-18) mg/dl BUN (6-23) mg/dl Creatinine (0.6-1.4) mg/dl POC Creatinine (0.6-1.3) mg/dl Est Cr Clr Drug Dosing ml/min eGFR BUN/Creatinine Ratio (10-20) Glucose (70-99(Fasting)) mg/dl POC Glucose (70-99) mg/dl POC Glucose (other) (70-99) mg/dl Estimat Average Glucose mg/dl Hemoglobin A1c (4.5-5.6) % Lactate 3.8 H* (0.4-2.0) mmol/L Calcium (8.6-10.3) mg/dl POC Ioniz Calcium Seb (1.12-1.32) mmol/l Magnesium (1.7-2.4) mg/dl Total Bilirubin (0.2-1.0) mg/dl Direct Bilirubin (0-0.2) mg/dl AST (13-39) U/L ALT (7-52) U/L Alkaline Phosphatase (34-104) U/L Troponin I High Sens 65.0 H* (0-20) pg/ml B-Natriuretic Peptide 66 (0-100) pg/ml Total Protein (6.0-8.3) gm/dl Albumin (3.4-5.0) gm/dl Procalcitonin (0-0.5) ng/ml Urine Color Yellow Urine Appearance Clear (Clear) Urine pH 5.0 (4.5-7.5) Ur Specific [place] 1.039 H (1.000-1.030) Urine Protein 1+ H (Negative) Urine Glucose (UA) 3+ H (Negative) Urine Ketones 2+ H (Negative) Urine Blood Negative (Negative) Urine Nitrite Negative (Negative) Urine Bilirubin Negative (Negative) Urine Urobilinogen Negative (Negative) Ur Leukocyte Esterase Negative (Negative) Urine WBC (Auto) 0-5 (0-5) /hpf Urine RBC (Auto) 0-2 (0-2) /hpf U Hyaline Cast (Auto) 0-2 (0-2) /lpf U Epithel Cells (Auto) 0-2 (0-2) /hpf Urine Bacteria (Auto) None Seen (None Seen) Nasal Screen MRSA (PCR) (Negative) Adenovirus (PCR) (NotDetected) B. pertussis DNA (PCR) (NotDetected) B.parapertussis DNA PCR (NotDetected) C. pneumoniae DNA (PCR) (NotDetected) Coronavirus OC43 (PCR) (NotDetected) Coronavirus HKU1 (PCR) (NotDetected) Coronavirus 229E (PCR) (NotDetected) SARS-CoV-2 (PCR) (NotDetected) Coronavirus NL63 (PCR) (NotDetected) Human Metapneumovir PCR (NotDetected) Influenza Type A (PCR) (NotDetected) Influenza Type B (PCR) (NotDetected) M. pneumoniae (PCR) (NotDetected) Parainfluenza 1 (PCR) (NotDetected) Parainfluenza 2 (PCR) (NotDetected) Parainfluenza 3 (PCR) (NotDetected) Parainfluenza 4 (PCR) (NotDetected) RSV (PCR) (NotDetected) Entero/Rhino (PCR) (NotDetected) 06/19/24 06/19/24 06/19/24 Range/Units 20:09 20:02 19:55 WBC 7.62 (4.8-10.8) K/ul RBC 5.36 (4.70-6.10) M/uL Hgb 15.2 (14.0-18.0) g/dl POC Hgb 15.6 (14.0-18.0) g/dl Hct 45.3 (42.0-52.0) % POC Hct 46 (42-52) % MCV 84.5 (80.0-100.0) fL MCH 28.4 (25.0-34.0) pg MCHC 33.6 (32.0-36.0) g/dL RDW Std Deviation 45.1 (36.4-46.3) fL RDW Coeff of Zainab 14.6 H (11.5-14.5) % Plt Count 221 (130-400) K/uL MPV 10.0 (9.4-12.4) fL Immature Gran % (Auto) 0.8 % Neut % (Auto) 89.4 % Lymph % (Auto) 6.6 % [place] % (Auto) 3.1 % Eos % (Auto) 0.0 % Baso % (Auto) 0.1 % Neut # (Auto) 6.81 H (1.40-6.50) K/uL Lymph # (Auto) 0.50 L (1.20-3.40) K/uL [place] # (Auto) 0.24 (0.11-0.59) K/uL Eos # (Auto) 0.00 (0.00-0.50) K/uL Baso # (Auto) 0.01 (0.00-0.20) K/uL Immature Gran # (Auto) 0.06 (0.01-0.20) K/uL VBG pH 7.39 (7.36-7.41) VBG pCO2 38 (38-50) mmHg VBG pO2 38 mmHg VBG HCO3 23 mmol/L VBG O2 Saturation 66.1 % VBG Base Excess -1.7 mEq/L POC Sodium 141 (135-144) mmol/L Sodium 141 (136-145) mmol/L POC Potassium 3.5 (3.3-5.0) mmol/L Potassium 3.6 (3.5-5.1) mmol/L POC Chloride 103 (101-112) mmol/L Chloride 102 (98-107) mmol/L Carbon Dioxide 22 (21-32) mmol/L POC Total CO2 21 L (24-31) mmol/L Anion Gap 17 H (3-11) POC Anion Gap 22.0 (16-25) mmol/L POC BUN 18 (7-18) mg/dl BUN 19 (6-23) mg/dl Creatinine 0.94 (0.6-1.4) mg/dl POC Creatinine 0.9 (0.6-1.3) mg/dl Est Cr Clr Drug Dosing 58.8 ml/min eGFR 83.49 BUN/Creatinine Ratio 20.2 H (10-20) Glucose 214 H (70-99(Fasting)) mg/dl POC Glucose (70-99) mg/dl POC Glucose (other) 224 H (70-99) mg/dl Estimat Average Glucose mg/dl Hemoglobin A1c (4.5-5.6) % Lactate 3.2 H* (0.4-2.0) mmol/L Calcium 9.3 (8.6-10.3) mg/dl POC Ioniz Calcium Seb 1.09 L (1.12-1.32) mmol/l Magnesium 2.1 (1.7-2.4) mg/dl Total Bilirubin 0.6 (0.2-1.0) mg/dl Direct Bilirubin 0.0 (0-0.2) mg/dl AST 24 (13-39) U/L ALT 24 (7-52) U/L Alkaline Phosphatase 42 (34-104) U/L Troponin I High Sens 63.5 H* (0-20) pg/ml B-Natriuretic Peptide (0-100) pg/ml Total Protein 8.0 (6.0-8.3) gm/dl Albumin 4.3 (3.4-5.0) gm/dl Procalcitonin 0.04 (0-0.5) ng/ml Urine Color Urine Appearance (Clear) Urine pH (4.5-7.5) Ur Specific [place] (1.000-1.030) Urine Protein (Negative) Urine Glucose (UA) (Negative) Urine Ketones (Negative) Urine Blood (Negative) Urine Nitrite (Negative) Urine Bilirubin (Negative) Urine Urobilinogen (Negative) Ur Leukocyte Esterase (Negative) Urine WBC (Auto) (0-5) /hpf Urine RBC (Auto) (0-2) /hpf U Hyaline Cast (Auto) (0-2) /lpf U Epithel Cells (Auto) (0-2) /hpf Urine Bacteria (Auto) (None Seen) Nasal Screen MRSA (PCR) (Negative) Adenovirus (PCR) Not Detected (NotDetected) B. pertussis DNA (PCR) Not Detected (NotDetected) B.parapertussis DNA PCR Not Detected (NotDetected) C. pneumoniae DNA (PCR) Not Detected (NotDetected) Coronavirus OC43 (PCR) Not Detected (NotDetected) Coronavirus HKU1 (PCR) Not Detected (NotDetected) Coronavirus 229E (PCR) Not Detected (NotDetected) SARS-CoV-2 (PCR) DETECTED A (NotDetected) Coronavirus NL63 (PCR) Not Detected (NotDetected) Human Metapneumovir PCR Not Detected (NotDetected) Influenza Type A (PCR) Not Detected (NotDetected) Influenza Type B (PCR) Not Detected (NotDetected) M. pneumoniae (PCR) Not Detected (NotDetected) Parainfluenza 1 (PCR) Not Detected (NotDetected) Parainfluenza 2 (PCR) Not Detected (NotDetected) Parainfluenza 3 (PCR) Not Detected (NotDetected) Parainfluenza 4 (PCR) Not Detected (NotDetected) RSV (PCR) Not Detected (NotDetected) Entero/Rhino (PCR) Not Detected (NotDetected) Medications Administered Current Inpatient Medications Acetaminophen (Acetaminophen 325 Mg Tab) 650 mg PO Q4H PRN PRN Reason: Pain or Fever Stop: 07/20/24 00:57 Last Admin: 06/20/24 08:30 Dose: 650 mg Albuterol (Albut/Ipratrop 3mg/0.5mg Neb 3 Ml Vial) 3 ml NEB QIDR HARRISON; Protocol Stop: 07/20/24 06:59 Last Admin: 06/20/24 06:38 Dose: 3 ml Albuterol (Albut/Ipratrop 3mg/0.5mg Neb 3 Ml Vial) 3 ml NEB Q4H PRN; Protocol PRN Reason: Shortness Of Breath Or Wheezing Stop: 07/20/24 00:57 Albuterol (Albuterol Hfa 8 Gm Inhaler) 2 puffs INH Q4H PRN PRN Reason: Shortness Of Breath Or Wheezin Stop: 07/20/24 00:57 Amlodipine Besylate (Amlodipine Besylate 5 Mg Tab) 5 mg PO DAILY HARRISON Stop: 07/20/24 08:59 Aspirin (Aspirin 81 Mg Ectab) 81 mg PO DAILY HARRISON Stop: 07/20/24 08:59 Atorvastatin Calcium (Atorvastatin 20 Mg Tab) 20 mg PO DAILY HARRISON Stop: 07/20/24 08:59 Dextrose (Dextrose 50% 50 Ml Syringe) 25 - 50 ml IV UD PRN; Protocol PRN Reason: Hypoglycemia Protocol Stop: 07/20/24 00:57 Doxazosin Mesylate (Doxazosin Mesylate Tab 2 Mg Tab) 2 mg PO PM HARRISON Stop: 07/20/24 20:59 Doxycycline Hyclate (Doxycycline Hyclate 100 Mg Cap) 100 mg PO BID HARRISON Stop: 06/23/24 07:59 Enoxaparin Sodium (Enoxaparin Inj 40 Mg/0.4 Ml Syr) 40 mg SQ DAILY HARRISON Stop: 07/20/24 08:59 Fluticasone Furoate (Fluticasone Furoate 100mcg 14 Puffs/Inhaler) 1 puffs INH DAILY HARRISON Stop: 07/20/24 08:59 Fluticasone Propionate (Fluticasone Propionate Na Spr 16 Gm Btl) 2 sprays NA DAILY [facility] Stop: 07/20/24 08:59 Glucagon (Glucagon For Inj 1 Mg Vial) 1 mg SQ UD PRN; Protocol PRN Reason: Hypoglycemia Protocol Stop: 07/20/24 00:57 Glucose (Glucose 40% Gel 15 Gm Tube) 15 - 30 gm PO UD PRN; Protocol PRN Reason: Hypoglycemia Protocol Stop: 07/20/24 00:57 Glucose (Glucose 10 Tab/Tube) 4 - 8 tab PO UD PRN; Protocol PRN Reason: Hypoglycemia Protocol Stop: 07/20/24 00:57 Cefepime HCl (Maxipime 2000mg) 2,000 mg in 20 mls @ 5 mls/min IV Q12H [facility]; Protocol Stop: 06/25/24 08:59 Remdesivir 100 mg/ Sodium (Chloride) 250 mls @ 250 mls/hr IV Q24H [facility] Stop: 06/23/24 20:59 Sodium Chloride (Nss) 500 mls @ 75 mls/hr IV .Q6H40M [facility] Stop: 06/20/24 08:54 Last Admin: 06/20/24 02:32 Dose: 75 mls/hr Methylprednisolone 40 mg/ (Syringe) 0.64 mls @ 1.5 mls/min IV Q8H [facility] Stop: 07/20/24 07:59 Vancomycin HCl 1,250 mg/ (Sodium Chloride) 275 mls @ 200 mls/hr IV Q18H [facility] Stop: 06/27/24 05:59 Last Infusion: 06/20/24 06:56 Dose: Infused Insulin Aspart (Insulin Aspart Per Unit Charge) 0 units SC ACHS [facility] Stop: 07/20/24 02:14 Last Admin: 06/20/24 02:39 Dose: 2 units Levothyroxine Sodium (Levothyroxine Sodium 100 Mcg Tablet) 100 mcg PO DAILYBB [facility] Stop: 07/20/24 06:29 Last Admin: 06/20/24 05:35 Dose: 100 mcg Losartan Potassium (Losartan Potassium 25 Mg Tab) 25 mg PO DAILY [facility] Stop: 07/20/24 08:59 Metoprolol Succinate (Metoprolol Succ 25mg Ext Rel Tab) 12.5 mg PO DAILY [facility] Stop: 07/20/24 08:59 Miscellaneous (Carbohydrates For Hypoglycemia ) 15 - 30 gm PO UD PRN PRN Reason: Hypoglycemia Protocol Stop: 07/20/24 00:57 Miscellaneous Information (Vancomycin Consult Active) 1 each N/A UD PRN PRN Reason: Consult Stop: 07/19/24 20:32 Miscellaneous Information (Pharmacy Glycemic Mgmt Consult) 1 each N/A UD PRN PRN Reason: Consult Stop: 07/20/24 00:57 Montelukast Sodium (Montelukast Sodium 10 Mg Tablet) 10 mg PO DAILY [facility] Stop: 07/20/24 08:59 Nitroglycerin (Nitroglycerin Sl 0.4 Mg/Tab Tab) 0.4 mg SL Q5M PRN PRN Reason: Chest Pain Stop: 07/20/24 00:57 Pantoprazole Sodium (Pantoprazole 40 Mg Tab) 40 mg PO DAILY [facility] Stop: 07/20/24 08:59 Polyethylene Glycol (Polyethylene (Miralax) 17 Gm Pack) 17 gm PO DAILY PRN PRN Reason: Constipation Stop: 07/20/24 00:57 Sodium Chloride (Sodium Chlor 7% 4 Ml Neb) 4 ml NEB BIDR [facility] Stop: 07/20/24 06:59 Last Admin: 06/20/24 06:39 Dose: 4 ml Umeclidinium/Vilanterol (Umeclidinium/Vilanterol 62.5/25mcg 7 Puffs/Inhaler) 1 puffs INH DAILY [facility] Stop: 07/20/24 08:59
[2024-06-20] MEDS: UMECLIDINIUM/VILANTEROL 62.5/25MCG 7 PUFFS/INHALER INH SCH (08:44)
[2024-06-20] MEDS ORDERED: NON-FORMULARY MEDICATION (Fluticasone-Umeclidin-Vilanter [Trelegy Ellipta] 100-62.5-25 mcg INH SCH (09:00)
[2024-06-20] MEDS ORDERED: methylPREDNISolone 125 MG/2 ML VIAL IV SCH (09:00)
[2024-06-20 09:45] LABS: C Reactive Protein 16.95 mg/dl (0-0.5)
[2024-06-20] MEDS: ENOXAPARIN INJ 40 MG/0.4 ML SYR SQ SCH (11:32)
[2024-06-20] MEDS: METOPROLOL SUCC 25MG EXT REL TAB PO SCH (11:32)
[2024-06-20] MEDS: FLUTICASONE PROPIONATE NA SPR 16 GM BTL SCH (11:35)
--- NOTE | 2024-06-20 12:29 | XRay Report ---
Exam(s): XR CXR 1 VIEW EXAM: XR Chest, 1 View CLINICAL HISTORY: shortness of breath. TECHNIQUE: Frontal view of the chest. COMPARISON: Portable chest single view dated 12/29/2023 FINDINGS: Lungs: Limited by poor inspiratory effort. There is more prominent patchy airspace opacities in the right mid-upper lung zone and left mid to lower lung zone, to include the left perihilar region. The pulmonary vasculature appears somewhat equalized. Pleural space: Questionable blunting of the right costophrenic margin. The left costophrenic margin is sharp. Heart: The cardiac silhouette is partially excluded but is thought to be stable. Mediastinum: The mediastinal contours demonstrate no significant abnormality, accounting for slight obliquity. No tracheal deviation. Bones/joints: Unremarkable. No acute fracture. IMPRESSION: Limited by poor inspiratory effort. There is more prominent patchy airspace opacities in the right mid-upper lung zone and left mid to lower lung zone, to include the left perihilar region. The pulmonary vasculature appears somewhat equalized. Favor bilateral pneumonia over asymmetric edema. Small right pleural effusion is difficult to exclude. No pneumothorax. Electronically signed by: Pedro Tovar MD 06/19/24 22:37 PM
--- NOTE | 2024-06-20 12:29 | CT Scan Report ---
Exam(s): CTA CHEST IV Amt: 120 ml optiray 320 EXAM: CT Angiography Chest With Intravenous Contrast CLINICAL HISTORY: Evaluate for PE; SOB; hypoxia. TECHNIQUE: Axial computed tomographic angiography images of the chest with intravenous contrast. CTDI is 28.14 mGy and DLP is 761.06 mGy-cm. Automated exposure control was utilized for the study. A dose lowering technique was utilized adhering to the principles of ALARA. MIP reconstructed images were created and reviewed. COMPARISON: CTA chest 12/29/2023 FINDINGS: Limitations: There is extensive and diffuse respiratory artifact, which significantly degrades image quality throughout the examination. Pulmonary arteries: Accounting for limitations with extensive respiratory artifact, there is no definite evidence for large/central pulmonary embolism. The majority of the subsegmental and distal pulmonary artery segments are of nondiagnostic quality. Aorta: The thoracic aorta is normal in caliber. No dissection or aneurysm. Lungs: Extensive patchy confluent irregular ground-glass opacities now identified diffusely throughout the lungs, most prominent in the right lung apex. Curvilinear changes noted involving the right lower lobe adjacent to the hemidiaphragm are presumed coexisting compressive atelectasis. Pleural space: Unremarkable. No significant effusion. No pneumothorax. Heart: The cardiac chambers are normal in size. No CT evidence for right heart strain. No pericardial effusion. Prominent coronary artery calcification in the LAD distribution, stable. Bones/joints: No acute fracture. No dislocation. Soft tissues: Unremarkable. Lymph nodes: Unremarkable. No enlarged lymph nodes. Upper abdomen: Similar asymmetric elevation of the right hemidiaphragm. IMPRESSION: 1. Accounting for limitations with extensive respiratory artifact, there is no definite evidence for large/central pulmonary embolism. The majority of the subsegmental and distal pulmonary artery segments are of nondiagnostic quality. 2. Extensive patchy confluent irregular ground-glass opacities now identified diffusely throughout the lungs, most prominent in the right lung apex. The primary consideration is pneumonia, to include atypical bacterial and viral etiologies. No pleural effusion or pneumothorax. Electronically signed by: Pedro Tovar MD 06/19/24 22:33 PM
--- NOTE | 2024-06-20 15:33 | Pharmacy Report ---
Pharmacy Glycemic Short Note 2 - Date of Service June 20, 2024 - Glycemic Short BSG Results (Last 24 hours): 06/19/24 06/19/24 06/20/24 19:55 20:02 02:27 Glucose 214 H POC Glucose 204 H POC Glucose (other) 224 H 06/20/24 06/20/24 06/20/24 06:50 07:07 11:01 Glucose 162 H POC Glucose 145 H 127 H POC Glucose (other) OUTPATIENT ANTIDIABETIC REGIMEN: * glipizide 5 mg BID, empagliflozin 25 mg daily, pred 5 mg daily * A1c 8.6% 06/20 ASSESSMENT: * Patient admitted with COVID pneumonia, ordered solumedrol 40 mg IV q8H * BSG initially elevated, has trended down with 10 units of lantus and weight based stress of 2 novolog * Continue current orders for now PLAN FOR INPATIENT GLYCEMIC CONTROL: * Hold outpatient oral diabetes medications * Basal insulin * Lantus 10 units SQ daily * Bolus insulin * NovoLog per scale ACHS or Q6hrs while NPO * Goal Range: Low 110 mg/dL - High 150 mg/dL * Correction Factor: 30 mg/dL/unit * Nutritional / Prandial insulin per carb ratio of 1 unit per 10 grams CHO consumed
[2024-06-20] MEDS: FUROSEMIDE INJ 20 MG/2 ML VIAL IV ONE (18:04)
--- OUTSIDE RECORDS SUMMARY | 2024-06-20 18:34 | External Medical Summary | Summary of Care ---
Author Name Unknown Organization [facility] [address] [facility] [address] Phone [phone] Care Team Providers Care Arc Welding Machine Operator Name Role Phone Shana Hamlin MD Primary Care Provider [phone] Reason for Visit * Reason Comments eRx-Medication Refill Encounter Details Date Type Department Care Team (Late st Contact Info) Description 04/18/2024 Refill [facility] [address] [facility] [place] [address] Shana Hamlin MD [address] [facility] [place] [id number] Allergies Active Allergy Reactions Criticality Noted Date Comments Gianluca Inhibitors Cough 06/12/2016 Cat Dander 03/31/2020 Ragweed 02/16/2020 Per patient's he is allergic to all weeds, trees, grasses documented as of this encounter (statuses as of 04/20/2024) Medications Medication Sig Dispensed Refills Start Date End Date Status ASPIRIN 81 MG PO TABS one tablet daily Active Blood Glucose Monitoring Suppl ([employer]CH ULTRA SYSTEM) W/DEVICE KITIndications:Type 2 diabetes mellitus with hemoglobin A1c goal of less than 7.5% ([facility]) Use as directed 2 times a day. E11.9 1 Kit 6 Active Azelastine HCl 0.1 % nasal spray Administer 1 [place] into nostril 2 times a day. 30 mL 5 9 Active Tadalafil (CIALIS) 20 MG TabletIndications:E rectile dysfunction, unspecified erectile dysfunction type Take 1 Tab by mouth daily as needed for Erectile Dysfunction. Prior to intercourse, no more than 1 dose in 24 hours. 24 Tab 3 0 Active Nitroglycerin 0.4 MG [...] blood glucose 200 Strip 3 3 Active Benzonatate 200 MG Oral Capsule 3 Active OneTouch Delica Lancets 33GIndications:Type 2 diabetes mellitus with hemoglobin A1c goal of less than 7.5% ([facility]) USE DIRECTED TWICE DAILY. USE UP TO FOUR TIMES A DAY DIRECTED. 100 Each 10 3 Active Levalbuterol HCl 1.25 MG/3ML Inhalation Nebulization Solution (Xopenex) 3 Active amLODIPine Besylate 5 MG Oral [...] THE EVENING 90 Tablet 3 4 Active Losartan Potassium 25 MG Oral [...] the morning. 30 Tablet 5 4 Active Albuterol Sulfate HFA 108 (90 Base) MCG/ACT Inhalation Aerosol SolutionIndications :Complicated acute bronchitis Inhale 2 Puffs by mouth every 4 hours as needed for Wheezing. 18 g 1 4 Active Ipratropium [place] 0.02 % Inhalation Solution (Atrovent) Inhale 2.5 mL via nebulizer in the morning and 2.5 mL at noon and 2.5 mL in the evening and 2.5 mL before bedtime. 75 mL 12 4 Active Empagliflozin 25 MG Oral Tablet (Jardiance)Indicati ons:Type 2 diabetes mellitus with hemoglobin A1c goal of less than 8.0% (HCC) Take 1 Tablet by mouth in the morning. 90 Tablet 3 4 Active glipiZIDE 5 MG Oral Tablet (Glucotrol) TAKE 1 TABLET BY MOUTH TWICE DAILY 30 minutes before a meal 180 Tablet 1 4 Active guaiFENesin ER 600 MG Oral Tablet Extended Release 12 Hour (Humibid LA) Take 1 Tablet by mouth 2 times a day as needed for Cough or Congestion. Active Montelukast Sodium 10 MG Oral Tablet (Singulair)Indicati ons:Eosinophilic asthma Take 1 Tablet by mouth in the morning. 90 Tablet 1 4 Active Xolair 150 MG/ML Subcutaneous Solution Prefilled Syringe (Omalizumab)Indicat ions:Eosinophilic asthma INJECT 2 SYRINGES UNDER THE SKIN EVERY 4 WEEKS 2 mL 6 4 Active Cetirizine HCl 10 MG Oral Tablet (ZyrTEC) Take 1 Tablet by mouth at bedtime. 90 Tablet 1 4 Active Mometasone Furoate 50 MCG/ACT Nasal SuspensionIndicatio ns:Chronic rhinitis Administer 2 Sprays into each nostril in the morning. 51 g 1 4 Active Omeprazole 20 MG Oral Capsule Delayed Release (PriLOSEC) TAKE 1 CAPSULE BY MOUTH TWICE DAILY 30 MINUTES BEFORE A MEAL 180 Capsule 1 4 Active predniSONE 20 MG Oral Tablet (Deltasone) 2 tabs daily x 3 days then 1 tab daily x 4 days in morning with food 10 Tablet 4 Active Sodium Chloride 3 % Inhalation Nebulization Solution inhale contents of 1 vial via nebulizer every morning and before bedtime 240 mL 5 4 Active Sodium Chloride 3 % Inhalation Nebulization Solution inhale contents of 1 vial via nebulizer every morning and before bedtime 240 mL 4 04/20/20 24 Discontinued Hospital, Clinic, or Other Facility Administered Medication Ordered Dose Route Frequency Start Date End Date Status omalizumab (XOLAIR) inj 150 mgIndications:Poorly controlled severe persistent asthma with acute exacerbation 150 mg SC [id number] 05/13/2020 Active omalizumab (XOLAIR) inj 150 mgIndications:Poorly controlled severe persistent asthma with acute exacerbation 150 mg SC [id number] 05/13/2020 Active documented as of this encounter (statuses as of 04/20/2024) Active Problems Problem Noted Date Diagnosed Date Pain of left forearm 02/19/2024 Left arm swelling 02/19/2024 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 Gastroesophageal reflux disease [...] as of this encounter (statuses as of 04/20/2024) Resolved Problems Problem Noted Date Diagnosed Date [...] as of this encounter (statuses as of 04/20/2024) Immunizations Name Administration Dates Next Due COVID-19 [...] lent, No Preserve, IM 05/09/2016,06/02/2015 Seasonal Influenza, Trivalen t, (IIV3), with Preserv, (Fluzone) 05/28/2014,05/16/2013,05/17/2012,01/2011,05/12/2010,06/15/2009,04/29/20 06 TDAP (age 10 and older)(Boostrix) 02/06/2019 02/06/2029 TDAP, Age 7 and older, IM (Adacel) 03/04/2007 Varicella Zoster Vaccine (Adult) 04/18/2012 documented [...] in the Last Year Never true 07/14/2019 Utilities Answer Date Recorded Do you have trouble paying y our heating, water, or electric bill? (Adult - for ages 18 years and over) Not on file 01/14/2024 Is your family able to pay t he heat, water, or electric bill? (Household - for ages 0-17 years) Not on file 01/14/2024 Does your family have access to good internet? (Household - for ages 0-17 years) Not on file 01/14/2024 Social Connections Answer Date Recorded How often do you feel lonely or isolated from those around you? (Adult - for ages 18 years and over) Not on file 01/14/2024 Sex and Gender Information Value Date Recorded Sex Assigned at Male 04/15/2020 8:42 AM EDT Gender Identity Male 04/15/2020 8:42 AM EDT Sexual Orientation Straight 04/15/2020 8: 42 AM EDT Job Start Date Occupation Industry Not on file Not on file Not on file documented as of this encounter Miscellaneous Notes * Telephone Encounter - Shana Hamlin MD - 04/20/2024 7:50 AM EDTSigned Prescriptions: Disp Refills Sodium Chloride 3 % Inhalation Nebulizatio*240 mL 5 Sig: inhale contents of 1 vial via nebulizer every morning and before bedtime Authorizing Provider: SHANA HAMLIN * Telephone Encounter - Avani Murillo LPN - 04/20/2024 7:16 AM EDTPending Prescriptions: Disp Refills Sodium Chloride 3 % Inhalation Nebulizatio*240 mL 5 Sig: inhale contents of 1 vial via nebulizer every morning and before bedtime * Telephone Encounter - Avani Murillo LPN - 04/20/2024 7:15 AM EDT Did you pend patient's preferred pharmacy and medication before forwarding?yes Pharmacy: [id number] Pending Prescriptions: Disp Refills Sodium Chloride 3 % Inhalation Nebulizati*240 mL 0 Sig: inhale contents of 1 vial via nebulizer every morning and before bedtime Last Visit: 04/13/2024 (in office), Visit date not found (telemedicine) Next Visit: Visit date not found If no future appointments scheduled, and last appointment is greater than a year ago, please schedule patient for a follow-up appointment Last date the medication was ordered: 03/16/24 Is this request for a controlled substance?No [...] 09:57 AM TSH 0.45 10/21/1996 04:30 PM LDL 58 10/21/2023 10:26 AM LDL 65 05/06/2019 09:57 AM LDL 69 11/07/2013 08:37 AM LDLCALC 44 01/21/2018 12:00 AM ALT 21 05/29/2022 10:25 AM ALT 49 07/05/2016 12:00 AM ALT 48 06/09/2015 08:21 AM HGBA1C 10.4 (H) 11/06/2023 08:45 AM HGBA1C 6.3 (H) 12/14/2019 11:27 AM * Telephone Encounter - Val E-Rx Ss Inbound - 04/20/2024 6:07 AM EDT Pending Prescriptions: Disp Refills Sodium Chloride 3 % Inhalation Nebulizatio*240 mL 0 Sig: inhale contents of 1 vial via nebulizer every morning and before bedtime * Telephone Encounter - Zhang Tucker - 04/18/2024 1:33 PM EDTPending Prescriptions: Disp Refills Sodium Chloride 3 % Inhalation Nebulizatio*240 mL 0 Sig: inhalecontents of 1 vial via nebulizer every morning and before bedtime documented in this encounter Plan of Treatment Scheduled Procedures Name Priority Associated Diagnoses Date/Ti me COLONOSCOPY FLEXIBLE PROXIMAL DIAGNOSTIC Recall History of colon polyps Health Maintenance Due Date Last Done Comments Hepatitis C Screening 1963 Zoster Vaccines (1 of 2) 06/13/2012 04/18/2012 Adult Wellness Visit 2012 COVID-19 Vaccine (3 - Moderna risk series) 12/06/2020 11/08/2020, 10/08/2020 Depression Screening 04/15/2021 04/15/2020 Diabetic Eye Exam 06/21/2021 06/21/2020, , 10/21/2015 Colonoscopy 02/19/2022 02/19/2017, 11/27, 12/15/2013 Diabetic Foot Exam 07/10/2023 07/10/2022, 0 04/15/2020, 03/23/2019, Additional history exists Influenza Vaccine (FLU shot) (#1) 2024 05/24/2023, 06/02/2022, 05/09/2020, Additional history exists HbA1c 05/07/2024 11/06/2023, 04/29, 11/21/2022, Additional history exists TSH 05/24/2024 05/24/2023, 11/0 07/2021, 03/20/2021, Additional history exists Albumin/Creatinine Ratio 10/20/2024 024, 07/13/2022, 01/21/2018, Additional history exists GFR 10/20/2024 10/21/2023, 11/0 07/2021, 03/20/2021, Additional history exists DTap/Tdap Vaccines (3 - Td or Tdap) 02/06/2029 02/06/2019, 03/04/2007 Pneumococcal Vaccine: 65+ Years Completed 08/17/2014, 10/12/2011 RETIRED - COLONOSCOPY-EVERY 5 YRS AGES 18-100 Discontinued 02/19/2017, 12/15/2013, 12/15/2013 HPV (Gardasil) Vaccine Aged Out No lo nger eligible based on patient's age to complete this topic Hepatitis B Vaccine Aged Out No longe r eligible based on patient's age to complete this topic MENINGOCOCCAL (MENACTRA/MENVEO) Aged Out No longer eligible based on patient's age to complete this topic documented as of this encounter Medical Devices Not on filedocumented as of this encounter Care Teams Arc Welding Machine Operator Relationship Specialty Start Date End Date Shana Hamlin MD [address] [facility] [place] [address] PCP - General Family Medicine 08/19/19 documented as of this encounter
--- OUTSIDE RECORDS SUMMARY | 2024-06-20 18:34 | External Medical Summary | Summary of Care ---
Author Name Unknown Organization [facility] Address [address] [facility] [address] Phone [phone] Care Team Providers Care Crop Nutrition Scientist Name Role Phone Enrico Mccauley MD Primary Care Provider [phone] Encounter Details Date Type Department Care Team (Late st Contact Info) Description 06/01/2024 Refill Pulmonary Medicine, [facility] [address] [facility] [place] [id number] Scot Kwon MD [address] [facility] [address] Allergies Active Allergy Reactions Criticality Noted Date Comments Gianluca Inhibitors Cough 06/12/2016 Cat Dander 03/31/2020 Ragweed 02/16/2020 Per patient's he is allergic to all weeds, trees, grasses documented as of this encounter (statuses as of 06/01/2024) Medications Medication Sig Dispensed Refills Start Date End Date Status ASPIRIN 81 MG PO TABS one tablet daily Active Blood Glucose Monitoring Suppl ([employer]CH ULTRA SYSTEM) W/DEVICE KITIndications:Type 2 diabetes mellitus with hemoglobin A1c goal of less than 7.5% (HCC) Use as directed 2 times a day. E11.9 1 Kit 07/27/2016 Active Azelastine HCl 0.1 % nasal spray Administer 1 [place] into nostril 2 times a day. 30 mL 5 04/13/2019 Active Tadalafil (CIALIS) 20 MG TabletIndications:E rectile dysfunction, unspecified erectile dysfunction type Take 1 Tab by mouth daily as needed for Erectile Dysfunction. Prior to intercourse, no more than 1 dose in 24 hours. 24 Tab 3 11/04/2019 Active Nitroglycerin 0.4 MG Sublingual Tablet Sublingual [...] A1c goal of less than 8.0% ([facility]) Use up to four times daily to check blood glucose 200 Strip 3 09/28/2022 Active Benzonatate 200 MG Oral Capsule 05/14/2023 Active OneTouch Delica Lancets 33GIndications:Type 2 diabetes mellitus with hemoglobin A1c goal of less than 7.5% ([facility]) USE DIRECTED TWICE DAILY. USE UP TO FOUR TIMES A DAY DIRECTED. 100 Each 10 07/11/2023 Active Levalbuterol HCl 1.25 MG/3ML Inhalation Nebulization Solution (Xopenex) 07/28/2023 Active amLODIPine Besylate 5 MG Oral Tablet [...] THE EVENING 90 Tablet 3 08/15/2023 Active Losartan Potassium 25 MG Oral Tablet [...] the morning. 30 Tablet 5 09/17/2023 Active Albuterol Sulfate HFA 108 (90 Base) MCG/ACT Inhalation Aerosol SolutionIndications :Complicated acute bronchitis Inhale 2 Puffs by mouth every 4 hours as needed for Wheezing. 18 g 1 10/27/2023 Active Ipratropium [place] 0.02 % Inhalation Solution (Atrovent) Inhale 2.5 mL via nebulizer in the morning and 2.5 mL at noon and 2.5 mL in the evening and 2.5 mL before bedtime. 75 mL 12 11/01/2023 Active Empagliflozin 25 MG Oral Tablet (Jardiance)Indicati ons:Type 2 diabetes mellitus with hemoglobin A1c goal of less than 8.0% (HCC) Take 1 Tablet by mouth in the morning. 90 Tablet 3 11/25/2023 Active glipiZIDE 5 MG Oral Tablet (Glucotrol) TAKE 1 TABLET BY MOUTH TWICE DAILY 30 minutes before a meal 180 Tablet 1 12/25/2023 Active guaiFENesin ER 600 MG Oral Tablet Extended Release 12 Hour (Humibid LA) Take 1 Tablet by mouth 2 times a day as needed for Cough or Congestion. Active Montelukast Sodium 10 MG Oral Tablet (Singulair)Indicati ons:Eosinophilic asthma Take 1 Tablet by mouth in the morning. 90 Tablet 1 02/12/2024 Active Xolair 150 MG/ML Subcutaneous Solution Prefilled Syringe (Omalizumab)Indicat ions:Eosinophilic asthma INJECT 2 SYRINGES UNDER THE SKIN EVERY 4 WEEKS 2 mL 6 02/12/2024 Active Cetirizine HCl 10 MG Oral Tablet (ZyrTEC) Take 1 Tablet by mouth at bedtime. 90 Tablet 1 02/19/2024 Active Mometasone Furoate 50 MCG/ACT Nasal SuspensionIndicatio ns:Chronic rhinitis Administer 2 Sprays into each nostril in the morning. 51 g 1 03/16/2024 Active Omeprazole 20 MG Oral Capsule Delayed Release (PriLOSEC) TAKE 1 CAPSULE BY MOUTH TWICE DAILY 30 MINUTES BEFORE A MEAL 180 Capsule 1 03/31/2024 Active predniSONE 20 MG Oral Tablet (Deltasone) 2 tabs daily x 3 days then 1 tab daily x 4 days in morning with food 10 Tablet 04/13/2024 Active Sodium Chloride 3 % Inhalation Nebulization Solution inhale contents of 1 vial via nebulizer every morning and before bedtime 240 mL 5 04/20/2024 Active Trelegy Ellipta 100-62.5-25 MCG/ACT Aerosol Powder Breath Activated (Fluticasone-Umecli dinium-Vilanterol) Inhale 1 Puff by mouth in the morning. 60 Blister Dosing Unit 06/01/2024 Active Trelegy Ellipta 100-62.5-25 MCG/ACT Aerosol Powder Breath Activated (Fluticasone-Umecli dinium-Vilanterol) Inhale 1 Puff by mouth in the morning. 60 Blister Dosing Unit 02/12/2024 Discontinu ed(Refill) Hospital, Clinic, or Other Facility Administered Medication Ordered Dose Route Frequency Start Date End Date Status omalizumab (XOLAIR) inj 150 mgIndications:Poorly controlled severe persistent asthma with acute exacerbation 150 mg SC [id number] 05/13/2020 Active omalizumab (XOLAIR) inj 150 mgIndications:Poorly controlled severe persistent asthma with acute exacerbation 150 mg SC [id number] 05/13/2020 Active documented as of this encounter (statuses as of 06/01/2024) Active Problems Problem Noted Date Diagnosed Date [...] as of this encounter (statuses as of 06/01/2024) Resolved Problems Problem Noted Date Diagnosed Date [...] as of this encounter (statuses as of 06/01/2024) Immunizations Name Administration Dates Next Due COVID-19 mRNA, LNP-s, No Pre serve, 2-Dose Series (Moderna) 11/08/2020,10/08/2020 Pneumococcal Conjugate Vacc, 13 Valent (Prevnar) 08/17/2014 Pneumococcal Polysaccharide PPV23 (Pneumovax) 10/12/2011,04/08/2009(Deferred: Patient Refused) RSV Vac., Bivalent, Perfusio n F, Pf,0.5 Ml (Abrysvo) 05/24/2023 Season Influenza, Quad, PF, Adjuvanted, 65+ Yrs, IM (FLUAD) 05/09/2020 Seasonal Influenza Vac., MDV , IM, 0.5 mL (Fluzone) 05/28/2014,05/16/2013,05/17/2012,01/2011,05/12/2010,06/15/2009,04/29/20 06 Seasonal Influenza, High Dos e, Trivalent, PF, IM (Fluzone HD) 05/29/2024 Seasonal Influenza, PF, 6 M & above, IM , (FluLaval or Fluzone) 05/06/2019,05/19/2018,06/06/2017 Seasonal Influenza, Quadriva lent Hd (Fluzone Hd) 05/24/2023,06/02/2022 Seasonal Influenza, Quadriva lent, No Preserve, IM 05/09/2016,06/02/2015 TDAP (age 10 and older)(Boostrix) 02/06/2019 02/06/2029 [...] Telephone Encounter - Scot Kwon MD - 06/01/2024 4:05 PM EST Signed Prescriptions: Disp Refills Trelegy Ellipta 100-62.5-25 MCG/ACT Aeroso*60 Bli*0 Sig: Inhale 1 Puff by mouth in the morning.Authorizing Provider: SCOT KWON * Telephone Encounter - Kavitha Abel LPN - 06/01/2024 9:40 AM EST Pt needs a refill on Trelegy sent to [facility] in [place] documented in this encounter Plan of Treatment [...] 12/15/2013, 12/15/2013 Influenza Vaccine (FLU shot) Completed 05/29/2024, 05/24/2023, 06/02/2022, Additional history exists HPV (Gardasil) Vaccine Aged Out No lo [...] filedocumented as of this encounter Care Teams Crop Nutrition Scientist Relationship Specialty Start Date End Date Enrico Mccauley MD [address] [place] [address] PCP - General Family Medicine 08/19/19 documented as of this encounter
--- OUTSIDE RECORDS SUMMARY | 2024-06-20 18:34 | External Medical Summary | Summary of Care ---
Author Name Unknown Organization [facility] Address [address] [place] [address] Phone [phone] Care Team Providers Care Occupational Health Nurse Supervisor Name Role Phone Enrico Mccauley MD Primary Care Provider [phone] Reason for Visit * Reason Onset Date Comments Medication Administration 05/29/2024 Flu an d/or Pneumo Inj Encounter Details Date Type Department Care Team (Late st Contact Info) Description 05/29/2024 9:30 AM EDT Immunization Ancillary Department, [place] [address] [place] [address] [place] [address] [place] [address] Need for prophylactic vaccination and inoculation against influenza* Allergies Active Allergy Reactions Criticality Noted Date Comments Gianluca Inhibitors Cough 06/12/2016 Cat Dander 03/31/2020 Ragweed 02/16/2020 Per patient's he is allergic to all weeds, trees, grasses documented as of this encounter (statuses as of 05/29/2024) Medications Medication Sig Dispensed Refills Start Date End Date Status ASPIRIN 81 MG PO TABS one tablet daily Active Blood Glucose Monitoring Suppl (Ubidyne ULTRA SYSTEM) W/DEVICE KITIndications:Type 2 diabetes mellitus with hemoglobin A1c goal of less than 7.5% ([facility]) Use as directed 2 times a day. E11.9 1 Kit 07/27/2016 Active Azelastine HCl 0.1 % nasal spray Administer 1 [place] into nostril 2 times a day. 30 [...] Wheezing. 18 g 1 10/27/2023 Active Ipratropium [place] 0.02 % Inhalation Solution (Atrovent) Inhale 2.5 mL via nebulizer in the morning and 2.5 mL at noon and 2.5 mL in the evening and 2.5 mL before bedtime. 75 mL 12 11/01/2023 Active Empagliflozin 25 MG Oral Tablet (Jardiance)Indicatio [...] 02/19/2024 Active Mometasone Furoate 50 MCG/ACT Nasal SuspensionIndication s:Chronic rhinitis Administer 2 Sprays into each nostril [...] before bedtime 240 mL 5 04/20/2024 Active Hospital, Clinic, or Other Facility Administered Medication Ordered Dose Route Frequency Start Date End Date Status omalizumab (XOLAIR) inj 150 mgIndications:Poorly controlled severe persistent asthma with acute exacerbation 150 mg SC [id number] 05/13/2020 Active omalizumab (XOLAIR) inj 150 mgIndications:Poorly controlled severe persistent asthma with acute exacerbation 150 mg SC [id number] 05/13/2020 Active documented as of this encounter (statuses as of 05/29/2024) Active Problems Problem Noted Date Diagnosed Date [...] as of this encounter (statuses as of 05/29/2024) Resolved Problems Problem Noted Date Diagnosed Date [...] as of this encounter (statuses as of 05/29/2024) Immunizations Name Administration Dates Next Due COVID-19 [...] on file documented as of this encounter Patient Instructions * Patient Instructions* Lidia Palomino LPN - 05/29/2024 9:28 AM EDT ~~PATIENT INSTRUCTIONS FOR FLU SHOT~~ Possible side effects of influenza vaccine, (flu shot), are usually mild and include: 1. Soreness or redness at injection site 2. Low grade fever 3. Body aches You may use Tylenol/Acetaminophen as needed for these symptoms. LET YOUR DOCTOR KNOW IMMEDIATELY IF YOU HAVE DIFFICULTY BREATHING OR SWALLOWING, EXPERIENCE ITCHINGOF FEET OR HANDS, HAVE SWELLING OF EYES, FACE OR INSIDE OF NOSE. documented in this encounter Progress Notes * Lidia Palomino LPN - 05/29/2024 9:28 AM EDT PRE - ADMINISTRATION DOCUMENTATION Are you experiencing any cold symptoms or fever? No Have you had Guillain-Byers Syndrome (an illness that causes paralysis) within the last 6 weeks? No Have you had the flu shot in the past? YES Have you ever had a reaction to the flu shot? No Lidia Palomino LPN, 05/29/2024 9:27 AM Immunization Administration Documentation Time Out Procedure Performed: Yes Patient Identified (Ask Name/Date of ): Yes Does the patient have a fever greater than 101 degrees today? No Patient allergic to latex? No VFC Stock: No Immunization(s) verified: Yes, Immunization Name: Flu, VIS Sheet(s) given: Yes Verified Side and Site: Yes Verified Shot(s) with Parent(s)/Patient: Yes documented in this encounter Plan of Treatment [...] as of this encounter Visit Diagnoses Diagnosis Need for prophylactic vaccination and inoculation against influenza- Primary documented in this encounter Care Teams Occupational Health Nurse Supervisor Relationship Specialty Start Date End Date Enrico Mccauley MD [address] [place] [address] PCP - General Family Medicine 08/19/19 documented as of this encounter
--- OUTSIDE RECORDS SUMMARY | 2024-06-20 18:34 | External Medical Summary | Summary of Care ---
Author Name Unknown Organization [facility] Address [address] [facility] [address] Phone [phone] Care Team Providers Care Adjunct English Instructor Name Role Phone Enrico Mccauley MD Primary Care Provider [phone] Encounter Details Date Type Department Care Team (Late st Contact Info) Description 04/24/2024 1:00 PM EDT Nurse Only Pulmonary Medicine, [facility] [address] [facility] [place] [address] Gw, Nurse Pulmonary [address] [facility] [place] [address] Arrived Allergies Active Allergy Reactions Criticality Noted Date Comments Gianluca Inhibitors Cough 06/12/2016 Cat Dander 03/31/2020 Ragweed 02/16/2020 Per patient's he is allergic to all weeds, trees, grasses documented as of this encounter (statuses as of 04/24/2024) Medications Medication Sig Dispensed Refills Start Date End Date Status ASPIRIN 81 MG PO TABS one tablet daily Active Blood Glucose Monitoring Suppl (MilyoniUCH ULTRA SYSTEM) W/DEVICE KITIndications:Type 2 diabetes mellitus with hemoglobin A1c goal of less than 7.5% (HCC) Use as directed 2 times a day. E11.9 1 Kit 07/27/2016 Active Azelastine HCl 0.1 % nasal spray Administer 1 [place] into nostril 2 times a day. 30 [...] Wheezing. 18 g 1 10/27/2023 Active Ipratropium [place] 0.02 % Inhalation Solution (Atrovent) Inhale 2.5 [...] asthma with acute exacerbation 150 mg SC [id number] 05/13/2020 Active omalizumab (XOLAIR) inj 150 mgIndications:Poorly controlled severe persistent asthma with acute exacerbation 150 mg SC [id number] 05/13/2020 Active documented as of this encounter (statuses as of 04/24/2024) Active Problems Problem Noted Date Diagnosed Date [...] as of this encounter (statuses as of 04/24/2024) Resolved Problems Problem Noted Date Diagnosed Date [...] as of this encounter (statuses as of 04/24/2024) Immunizations Name Administration Dates Next Due COVID-19 [...] Taken Comments Blood Pressure - - Pulse 97 04/24/2024 1:04 PM EDT Temperature 35.7 C (96.2 F) 04/24/2024 1:04 PM ED T Respiratory Rate 16 04/24/2024 1:04 PM EDT Oxygen Saturation 92% 04/24/2024 1:04 PM EDT Inhaled Oxygen Concentration - - [...] (XOLAIR) inj 150 mg 150 mg, Subcutaneous, [id number], First dose on Sat05/13/20 at 1315, Until Discontinued, TOTAL DOSE = 150 mg Given 04/24/2024 1:05 PM EDT 150 mg Arm Right Upper Given 02/12/2024 12:52 PM EDT 150 mg A rm Right Upper Given 11/15/2023 9:30 AM EDT 150 mg Ar m Right Upper omalizumab (XOLAIR) inj 150 mg 150 mg, Subcutaneous, [id number], First dose on Sat05/13/20 at 1315, Until Discontinued, TOTAL DOSE = 150 mg Given 04/24/2024 1:05 PM EDT 150 mg Arm Left Upper Given 02/12/2024 12:52 PM EDT 150 mg A rm Left Upper Given 11/15/2023 9:29 AM EDT 150 mg Ar m Left Upper documented in this encounter Care Teams Adjunct English Instructor Relationship Specialty Start Date End Date Enrico Mccauley MD [address] [place] [address] PCP - General Family Medicine 08/19/19 documented as of this encounter
--- OUTSIDE RECORDS SUMMARY | 2024-06-20 18:34 | External Medical Summary | Summary of Care ---
Author Name Unknown Organization [facility] Address [address] [facility] [place] [address] Phone [phone] Care Team Providers Care Wellness Health Coach Name Role Phone Shana Hamlin MD Primary Care Provider [phone] Reason for Visit * Reason Comments eRx-Medication Refill Encounter Details Date Type Department Care Team (Late st Contact Info) Description 06/17/2024 Refill Family Practice [facility] [address] [facility] [place] [address] Shana Hamlin MD [address] [facility] [place] [address] Allergies Active Allergy Reactions Criticality Noted Date Comments Gianluca Inhibitors Cough 06/12/2016 Cat Dander 03/31/2020 Ragweed 02/16/2020 Per patient's he is allergic to all weeds, trees, grasses documented as of this encounter (statuses as of 06/18/2024) Medications ASPIRIN 81 MG PO TABS one tablet daily Active Blood Glucose Monitoring Suppl (Tillster ULTRA SYSTEM) W/DEVICE KITIndications:Ty pe 2 diabetes mellitus with hemoglobin A1c goal of less than 7.5% ([facility]) Use as directed 2 times a day. E11.9 1 Kit 07/27/20 16 Active Azelastine HCl 0.1 % nasal spray Administer 1 [place] into nostril 2 times a day. 30 mL 5 04/13/20 19 Active Tadalafil (CIALIS) 20 MG TabletIndications :Erectile dysfunction, unspecified erectile dysfunction type Take 1 Tab by mouth daily as needed for Erectile Dysfunction. Prior to intercourse, no more than 1 dose in 24 hours. 24 Tab 3 11/04/19 20 Active Nitroglycerin 0.4 MG Sublingual Tablet Sublingual (Nitrostat) Place 1 Tab under the tongue every 5 minutes as needed for Pain, Chest. up to 3 doses in 15 minutes 25 Tab 11 01/13/20 21 Active SUMAtriptan Succinate 25 MG Oral Tablet (Imitrex)Indicati ons:Migraine variant take 2 tablets by mouth at onset of migraine, and 1 tablet every 2 hours if needed; not more than 5 tablets in 24 hours 6 Tablet 11 04/16/20 22 Active Vitamin B-12 1000 MCG Oral Tablet TAKE 1 TABLET BY MOUTH ONCE DAILY 100 Tablet 2 06/07/20 22 Active [facility] Glucose Meter Test Strips In Vitro Strip (Glucose Blood)Indications :Type 2 diabetes mellitus with hemoglobin A1c goal of less than 8.0% ([facility]) Use up to four times daily to check blood glucose 200 Strip 3 09/29/19 23 Active Benzonatate 200 MG Oral Capsule 05/14/20 23 Active OneTouch Delica Lancets 33GIndications:Ty pe 2 diabetes mellitus with hemoglobin A1c goal of less than 7.5% ([facility]) USE DIRECTED TWICE DAILY. USE UP TO FOUR TIMES A DAY DIRECTED. 100 Each 10 07/11/20 23 Active Levalbuterol HCl 1.25 MG/3ML Inhalation Nebulization Solution (Xopenex) 07/28/20 23 Active amLODIPine Besylate 5 MG Oral Tablet (Norvasc)Indicati ons:HTN, goal below 140/90 TAKE 1 TABLET BY MOUTH EVERY MORNING 90 Tablet 3 08/08/19 24 Active Levothyroxine Sodium 100 MCG Oral Tablet (Levoxyl)Indicati ons:Acquired hypothyroidism TAKE 1 TABLET BY MOUTH EVERY MORNING (at least 30 minutes prior to breakfast or other meds) 90 Tablet 3 08/15/19 24 Active Doxazosin Mesylate 2 MG Oral Tablet (Cardura)Indicati ons:Urinary frequency TAKE ONE TABLET BY MOUTH ONE TIME DAILY IN THE EVENING 90 Tablet 3 08/15/19 24 Active Losartan Potassium 25 MG Oral Tablet (Cozaar)Indicatio ns:HTN, goal below 140/90 Take 1 Tablet by mouth in the morning. 90 Tablet 3 08/27/19 24 Active Atorvastatin Calcium 20 MG Oral Tablet (Lipitor)Indicati ons:Dyslipidemia Take 1 Tablet by mouth in the morning. 90 Tablet 3 09/06/19 24 Active Metoprolol Succinate ER 25 MG Oral Tablet Extended Release 24 Hour (toPROL XL)Indications:HT N, goal below 140/90 Take 0.5 Tablets by mouth in the morning. 30 Tablet 5 09/17/19 24 Active Albuterol Sulfate HFA 108 (90 Base) MCG/ACT Inhalation Aerosol SolutionIndicatio ns:Complicated acute bronchitis Inhale 2 Puffs by mouth every 4 hours as needed for Wheezing. 18 g 1 10/27/19 24 Active Ipratropium [place] 0.02 % Inhalation Solution (Atrovent) Inhale 2.5 mL via nebulizer in the morning and 2.5 mL at noon and 2.5 mL in the evening and 2.5 mL before bedtime. 75 mL 12 11/01/19 24 Active Empagliflozin 25 MG Oral Tablet (Jardiance)Indica tions:Type 2 diabetes mellitus with hemoglobin A1c goal of less than 8.0% ([facility]) Take 1 Tablet by mouth in the morning. 90 Tablet 3 11/25/19 24 Active guaiFENesin ER 600 MG Oral Tablet Extended Release 12 Hour (Humibid LA) Take 1 Tablet by mouth 2 times a day as needed for Cough or Congestion. Active Montelukast Sodium 10 MG Oral Tablet (Singulair)Indica tions:Eosinophili c asthma Take 1 Tablet by mouth in the morning. 90 Tablet 1 02/12/20 24 Active Xolair 150 MG/ML Subcutaneous Solution Prefilled Syringe (Omalizumab)Indic ations:Eosinophil ic asthma INJECT 2 SYRINGES UNDER THE SKIN EVERY 4 WEEKS 2 mL 6 02/12/20 24 Active Cetirizine HCl 10 MG Oral Tablet (ZyrTEC) Take 1 Tablet by mouth at bedtime. 90 Tablet 1 02/19/20 24 Active Mometasone Furoate 50 MCG/ACT Nasal SuspensionIndicat ions:Chronic rhinitis Administer 2 Sprays into each nostril in the morning. 51 g 1 03/16/20 24 Active Omeprazole 20 MG Oral Capsule Delayed Release (PriLOSEC) TAKE 1 CAPSULE BY MOUTH TWICE DAILY 30 MINUTES BEFORE A MEAL 180 Capsule 1 03/31/20 24 Active predniSONE 20 MG Oral Tablet (Deltasone) 2 tabs daily x 3 days then 1 tab daily x 4 days in morning with food 10 Tablet 04/13/20 24 Active Sodium Chloride 3 % Inhalation Nebulization Solution inhale contents of 1 vial via nebulizer every morning and before bedtime 240 mL 5 04/20/20 24 Active Trelegy Ellipta 100-62.5-25 MCG/ACT Aerosol Powder Breath Activated (Fluticasone-Umec lidinium-Vilanter ol) Inhale 1 Puff by mouth in the morning. 60 Blister Dosing Unit 06/01/20 Active Doxycycline Hyclate 100 MG Oral CapsuleIndication s:Respiratory infection,Severe persistent asthma dependent on systemic steroids Take 1 Capsule by mouth in the morning and 1 Capsule before bedtime. Do all this for 7 days. Until gone.. 14 Capsule 06/15/20 24 2023 Active predniSONE 20 MG Oral Tablet (Deltasone)Indica tions:Respiratory infection,Severe persistent asthma dependent on systemic steroids Take 3 tabs for 3 days, 2 tabs for 3 days, 1 tab for 3 days, 1/2 tab for 3 days 20 Tablet 06/15/20 24 Active glipiZIDE 5 MG Oral Tablet (Glucotrol) TAKE 1 TABLET BY MOUTH TWICE DAILY 30 minutes before a meal 180 Tablet 1 06/18/20 24 Active glipiZIDE 5 MG Oral Tablet (Glucotrol) TAKE 1 TABLET BY MOUTH TWICE DAILY 30 minutes before a meal 180 Tablet 1 12/25/19 24 2023 Discontinued Hospital, Clinic, or Other Facility Administered Medication Ordered Dose Route Frequency Start Date End Date Status omalizumab (XOLAIR) inj 150 mgIndications:Poorly controlled severe persistent asthma with acute exacerbation 150 mg SC [id number] 05/13/2020 Active omalizumab (XOLAIR) inj 150 mgIndications:Poorly controlled severe persistent asthma with acute exacerbation 150 mg SC [id number] 05/13/2020 Active documented as of this encounter (statuses as of 06/18/2024) Active Problems Problem Noted Date Diagnosed Date [...] A1c goal of less than 8.0% 10/22/2011 Overview (11/22/2015): ICD-10 update of inactive term HTN, goal below 130/80 06/15/2009 Overview (06/15/2009): Modified per HTN protocol #16. Dyslipidemia 04/08/2009 Acquired hypothyroidism 09/10/2006 documented as of this encounter (statuses as of 06/18/2024) Resolved Problems Problem Noted Date Diagnosed Date Resolved Date Acute respiratory failure with hypoxia 09/27/2023 11/25/2023 Upper respiratory tract infection 09/27/2023 11/25/2023 Bronchiectasis with acute exacerbation 10/12/2022 11/21/2022 Personal history of Pseudomonas pneumonia 05/09/2022 11/21/2022 Chronic rhinitis 12/21/2020 02/05/2022 House dust mite allergy 12/21/2020 042 12/2022 FREDERICK (dyspnea on exertion) 05/09/2020 Diastolic dysfunction 05/09/20202022 Nocturnal hypoxemia 05/18/2019 08/19/19 Severe asthma with exacerbation 05/18/2019 05/31/2020 Acute bronchitis, antibiotics not indicated 08/27/2011 10/12/2011 Acute bronchitis, complicated 06/18/2011 10/12/2011 Acute sinusitis 04/12/2011 10/12/2011 Acute bronchitis, complicated 09/26/2010 10/04/2010 Elevated prostate specific antigen (PSA) 03/04/2007 11/10/2013 ADVANCE DIRECTIVE INFORMATION 02/26/2006 06/05/2018 Overview (02/26/2006): Information given at previous appt. ABN BLOOD CHEMISTRY NEC 10/16/200401/2007 Esophageal reflux 12/27/2000 03/04/2007 HELICOBACTER PYLORI (H. 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 Esophagitis 10/06/2009 Overview (04/29/2017): ICD-10 update of inactive term Asthma, severe persistent, poorly-controlled 12/21/2020 documented as of this encounter (statuses as of 06/18/2024) Immunizations Name Administration Dates Next Due COVID-19 mRNA, LNP-s, No Pre serve, 2-Dose Series (Moderna) 11/08/2020,10/08/2020 Pneumococcal Conjugate Vacc, 13 Valent (Prevnar) 08/17/2014 Pneumococcal Polysaccharide PPV23 (Pneumovax) 10/12/2011,04/08/2009(Deferred: Patient Refused) RSV Vac., Bivalent, Perfusio n F, Pf,0.5 Ml (Abrysvo) 05/24/2023 Season Influenza, Quad, PF, Adjuvanted, 65+ Yrs, IM (FLUAD) 05/09/2020 Seasonal Influenza Vac., MDV , IM, 0.5 mL (Fluzone) 05/28/2014,05/16/2013,05/17/2012,1101/2011,05/12/2010,06/15/2009,04/29/20 06 Seasonal Influenza, High Dos e, Trivalent, [...] Assigned at Male 04/15/2020 8:42 AM EDT Legal Sex Male 5:58 AM EST Gender Identity Male 04/15/2020 8:42 AM EDT Sexual Orientation Straight 04/15/2020 8: 42 AM EDT documented as of this encounter Miscellaneous Notes * Telephone Encounter - Charlie Emery [facility] - 06/18/2024 11:53 AM ESTSigned Prescriptions: Disp Refills glipiZIDE 5 MG Oral Tablet (Glucotrol) 180 Ta*1 Sig: TAKE 1 TABLET BY MOUTH TWICE DAILY 30 minutes before a mealAuthorizing Provider: SHANA HAMLIN User: CHARLIE LANDA documented in this encounter Plan of Treatment [...] filedocumented as of this encounter Care Teams Wellness Health Coach Relationship Specialty Start Date End Date Shana Hamlin MD [address] [place] [address] PCP - General Family Medicine 08/19/19 documented as of this encounter
--- OUTSIDE RECORDS SUMMARY | 2024-06-20 18:35 | External Medical Summary | Summary of Care ---
Author Name Unknown Organization [facility] Address [address] [facility] [address] Phone [phone] Care Team Providers Care Bit Tapper Name Role Phone Shana Hamlin MD Primary Care Provider [phone] Reason for Visit * Reason Comments eRx-Medication Refill Encounter Details Date Type Department Care Team (Late st Contact Info) Description 02/16/2024 Refill Family Practice [facility] [address] [facility] [place] [address] hSana Hamlin MD [address] [place] [address] Allergies Active Allergy Reactions Criticality Noted Date Comments Gianluca Inhibitors Cough 06/12/2016 Cat Dander 03/31/2020 Ragweed 02/16/2020 Per patient's he is allergic to all weeds, trees, grasses documented as of this encounter (statuses as of 02/17/2024) Medications Medication Sig Dispensed Refills Start Date End Date Status ASPIRIN 81 MG PO TABS one tablet daily Active Blood Glucose Monitoring Suppl (QewzUCH ULTRA SYSTEM) W/DEVICE KITIndications:Type 2 diabetes mellitus with hemoglobin A1c goal of less than 7.5% ([facility]) Use as directed 2 times a day. E11.9 1 Kit 6 Active Azelastine HCl 0.1 % nasal spray Administer 1 [place] into nostril 2 times a day. 30 [...] A1c goal of less than 8.0% ([facility]CC) Use up to four times daily to check blood glucose 200 Strip 3 3 Active Benzonatate 200 MG Oral Capsule 3 Active Mometasone Furoate 50 MCG/ACT Nasal SuspensionIndicatio ns:Chronic rhinitis administer 2 sprays into each nostril daily 51 g 3 Active OneTouch Delica Lancets 33GIndications:Type 2 [...] Wheezing. 18 g 1 4 Active Ipratropium [place] 0.02 % Inhalation Solution (Atrovent) Inhale 2.5 mL via nebulizer in the morning and 2.5 mL at noon and 2.5 mL in the evening and 2.5 mL before bedtime. 75 mL 12 4 Active Empagliflozin 25 MG Oral Tablet (Jardiance)Indicati ons:Type 2 diabetes mellitus with hemoglobin A1c goal of less than 8.0% ([facility]) Take 1 Tablet by mouth [...] as needed for Cough or Congestion. Active predniSONE 5 MG Oral Tablet (Deltasone) TAKE ONE TABLET BY MOUTH IN THE MORNING 90 Tablet 4 Active Montelukast Sodium 10 MG Oral Tablet (Singulair)Indicati ons:Eosinophilic asthma Take 1 Tablet by mouth in the morning. 90 Tablet 1 4 Active Xolair 150 MG/ML Subcutaneous Solution Prefilled Syringe (Omalizumab)Indicat ions:Eosinophilic asthma INJECT 2 SYRINGES UNDER THE SKIN EVERY 4 WEEKS 2 mL 6 4 Active Trelegy Ellipta 100-62.5-25 MCG/ACT Aerosol Powder Breath Activated (Fluticasone-Umecli dinium-Vilanterol) Inhale 1 Puff by mouth in the morning. 60 Blister Dosing Unit 4 03/13/20 24 Active Sodium Chloride 3 % Inhalation Nebulization Solution inhale contents of 1 vial via nebulizer every morning and before bedtime 240 mL 4 Active Sodium Chloride 3 % Inhalation Nebulization Solution inhale contents of 1 vial via nebulizer every morning and before bedtime 240 mL 4 02/17/20 24 Discontinued Hospital, Clinic, or Other Facility Administered Medication Ordered Dose Route Frequency Start Date End Date Status omalizumab (XOLAIR) inj 150 mgIndications:Poorly controlled severe persistent asthma with acute exacerbation 150 mg SC [id number] 05/13/2020 Active omalizumab (XOLAIR) inj 150 mgIndications:Poorly controlled severe persistent asthma with acute exacerbation 150 mg SC [id number] 05/13/2020 Active documented as of this encounter (statuses as of 02/17/2024) Active Problems Problem Noted Date Diagnosed Date [...] as of this encounter (statuses as of 02/17/2024) Resolved Problems Problem Noted Date Diagnosed Date [...] as of this encounter (statuses as of 02/17/2024) Immunizations Name Administration Dates Next Due COVID-19 [...] Telephone Encounter - Shana Hamlin MD - 02/17/2024 10:22 AM EDTSigned Prescriptions: Disp Refills Sodium Chloride 3 % Inhalation Nebulizatio*240 mL 0 Sig: inhale contents of 1 vial via nebulizer every morning and before bedtime Authorizing Provider: SHANA HAMLIN * Telephone Encounter - Abigail León LPN - 02/17/2024 10:07 AM EDTPending Prescriptions: Disp Refills Sodium Chloride 3 % Inhalation Nebulizatio*240 mL 0 Sig: inhale contents of 1 vial via nebulizer every morning and before bedtime * Telephone Encounter - Romelia SERA Hayes - 02/17/2024 10:07 AM EDT Did you pend patient's preferred pharmacy and medication before forwarding?yes Pharmacy: [id number] [facility] Pending Prescriptions: Disp Refills Sodium Chloride 3 % Inhalation Nebulizati*240 mL 0 Sig: inhale contents of 1 vial via nebulizer every morning and before bedtime Last Visit: 01/10/2024 (in office), Visit date not found (telemedicine) Next Visit: Visit date not found If no future appointments scheduled, and last appointment is greater than a year ago, please schedule patient for a follow-up appointment Last date the medication was ordered: 01/13/2024 Is this request for a controlled substance?No [...] * Telephone Encounter - Zhang Tucker - 02/16/2024 1:30 PM EDTPending Prescriptions: Disp Refills Sodium Chloride [...] YRS AGES 18-100 Discontinued 02/19/2017, 12/15/2013, 12/15/2013 *BASELINE EKG FOR HTN Completed 05/05/2022 , 02/16/2020, 06/29/2019, Additional history exists HPV (Gardasil) Vaccine Aged [...] filedocumented as of this encounter Care Teams Bit Tapper Relationship Specialty Start Date End Date Shana Hamlin MD [address] [place] [address] PCP - General Family Medicine 08/19/19 documented as of this encounter
--- OUTSIDE RECORDS SUMMARY | 2024-06-20 18:35 | External Medical Summary | Summary of Care ---
Author Name Unknown Organization [facility] Address [address] [facility] [address] Phone [phone] Care Team Providers Care Sorting Livestock Worker Name Role Phone Enrico Mccauley MD Primary Care Provider [phone] [phone] Reason for Visit * Reason Comments eRx-Medication Refill Encounter Details Date Type Department Care Team (Late st Contact Info) Description 01/30/[address] [facility] [address] [facility] [place] [address] Enrico Mccauley MD [address] [facility] [place] [address] Allergies Active Allergy Reactions Criticality Noted Date Comments Gianluca Inhibitors Cough 06/12/2016 Cat Dander 03/31/2020 Ragweed 02/16/2020 Per patient's he is allergic to all weeds, trees, grasses documented as of this encounter (statuses as of 01/31/2024) Medications Medication Sig Dispensed Refills Start Date End Date Status ASPIRIN 81 MG PO TABS one tablet daily Active Blood Glucose Monitoring Suppl (Mirage InnovationsUCH ULTRA SYSTEM) W/DEVICE KITIndications:Type 2 diabetes mellitus with hemoglobin A1c goal of less than 7.5% ([facility]) Use as directed 2 times a day. E11.9 1 Kit 6 Active Azelastine HCl 0.1 % nasal spray Administer 1 [place] into nostril 2 times a day. 30 [...] Benzonatate 200 MG Oral Capsule 3 Active Montelukast Sodium 10 MG Oral Tablet (Singulair)Indicati ons:Eosinophilic asthma Take 1 Tablet by mouth in the morning. 90 Tablet 2 3 Active Mometasone Furoate 50 MCG/ACT Nasal [...] MG/3ML Inhalation Nebulization Solution (Xopenex) 3 Active Breo Ellipta 200-25 MCG/ACT Inhalation [...] Wheezing. 18 g 1 4 Active Ipratropium [place] 0.02 % Inhalation Solution (Atrovent) Inhale 2.5 mL via nebulizer in the morning and 2.5 mL at noon and 2.5 mL in the evening and 2.5 mL before bedtime. 75 mL 12 4 Active Tiotropium [place] Monohydrate 18 MCG Inhalation Capsule (Spiriva)Indication s:Severe [...] as needed for Cough or Congestion. Active Sodium Chloride 3 % Inhalation Nebulization Solution inhale contents of 1 vial via nebulizer every morning and before bedtime 240 mL 4 Active predniSONE 5 MG Oral Tablet (Deltasone) TAKE ONE TABLET BY MOUTH IN THE MORNING 90 Tablet 4 Active predniSONE 5 MG Oral Tablet (Deltasone) TAKE ONE TABLET BY MOUTH IN THE MORNING 90 Tablet 4 01/31/20 24 Discontinued Hospital, Clinic, or Other Facility Administered Medication Ordered Dose Route Frequency Start Date End Date Status omalizumab (XOLAIR) inj 150 mgIndications:Poorly controlled severe persistent asthma with acute exacerbation 150 mg SC [id number] 05/13/2020 Active omalizumab (XOLAIR) inj 150 mgIndications:Poorly controlled severe persistent asthma with acute exacerbation 150 mg SC [id number] 05/13/2020 Active documented as of this encounter (statuses as of 01/31/2024) Active Problems Problem Noted Date Diagnosed Date [...] as of this encounter (statuses as of 01/31/2024) Resolved Problems Problem Noted Date Diagnosed Date [...] as of this encounter (statuses as of 01/31/2024) Immunizations Name Administration Dates Next Due COVID-19 [...] Telephone Encounter - Shanae Nation MD - 01/31/2024 4:41 PM EDT Signed Prescriptions: Disp Refills predniSONE 5 MG Oral Tablet (Deltasone) 90 Tab*0 Sig: TAKE ONE TABLET BY MOUTH IN THE MORNINGAuthorizing Provider: SHANAE NATION * Telephone Encounter - Ariel Granados [facility] - 01/31/2024 2:52 PM EDTPending Prescriptions: Disp Refills predniSONE 5 MG Oral Tablet (Deltasone) 90 Tab* Sig: TAKE ONE TABLET BY MOUTH IN THE MORNING * Telephone Encounter - Ariel Granados [facility] - 01/31/2024 2:51 PM EDT [facility] is currently not authorized to approve refills for the pended medication(s) per refill protocol. Please approve if appropriate. Thanks, Ariel Granados Pharm.D. Clinical Pharmacist [facility] ([facility]) [phone] 01/31/2024, 2:51 PM Did you pend patient's preferred pharmacy and medication before forwarding?yes Pharmacy: [id number] [address] [facility] Pending Prescriptions: Disp Refills predniSONE 5 MG Oral Tablet (Deltasone) [*90 Tab* Sig: TAKE ONE TABLET BY MOUTH IN THE MORNING Last Visit: 01/10/2024 (in office), Visit date not found (telemedicine) Next Visit: Visit date not found If no future appointments scheduled, and last appointment is greater than a year ago, please schedule patient for a follow-up appointment Last date the medication was ordered: 11/01/2023 Is this request for a controlled substance?No [...] filedocumented as of this encounter Care Teams Sorting Livestock Worker Relationship Specialty Start Date End Date Enrico Mccauley MD [address] [address] PCP - General Family Medicine 08/19/19 documented as of this encounter
--- OUTSIDE RECORDS SUMMARY | 2024-06-20 18:35 | External Medical Summary | Summary of Care ---
Author Name Unknown Organization [facility] Address [address] [facility] [address] Phone [phone] Care Team Providers Care Diesel Mechanic Apprentice Name Role Phone Shana Hamlin MD Primary Care Provider [phone] [phone] Reason for Visit * Reason Comments eRx-Medication Refill Encounter Details Date Type Department Care Team (Late st Contact Info) Description 02/12/2024 Refill Family Practice [facility] [place] [address] Shana Hamlin MD [address] [place] [address] Eosinophilic asthma Allergies Active Allergy Reactions Criticality Noted Date Comments Gianluca Inhibitors Cough 06/12/2016 Cat Dander 03/31/2020 Ragweed 02/16/2020 Per patient's he is allergic to all weeds, trees, grasses documented as of this encounter (statuses as of 02/12/2024) Medications Medication Sig Dispensed Refills Start Date End Date Status ASPIRIN 81 MG PO TABS one tablet daily Active Blood Glucose Monitoring Suppl (O-RIDUCH ULTRA SYSTEM) W/DEVICE KITIndications:Type 2 diabetes mellitus with hemoglobin A1c goal of less than 7.5% ([facility]) Use as directed 2 times a day. E11.9 1 Kit 6 Active Azelastine HCl 0.1 % nasal spray Administer 1 [place] into nostril 2 times a day. 30 [...] Wheezing. 18 g 1 4 Active Ipratropium [place] 0.02 % Inhalation Solution (Atrovent) Inhale 2.5 [...] for 5 days. 15 Tablet 3 4 02/12/20 24 Active glipiZIDE 5 MG Oral Tablet [...] Blister Dosing Unit 4 03/13/20 24 Active Montelukast Sodium 10 MG Oral Tablet (Singulair)Indicati ons:Eosinophilic asthma Take 1 Tablet by mouth in the morning. 90 Tablet 2 3 02/12/20 24 Discontinued Hospital, Clinic, or Other Facility Administered Medication Ordered Dose Route Frequency Start Date End Date Status omalizumab (XOLAIR) inj 150 mgIndications:Poorly controlled severe persistent asthma with acute exacerbation 150 mg SC [id number] 05/13/2020 Active omalizumab (XOLAIR) inj 150 mgIndications:Poorly controlled severe persistent asthma with acute exacerbation 150 mg SC [id number] 05/13/2020 Active documented as of this encounter (statuses as of 02/12/2024) Active Problems Problem Noted Date Diagnosed Date [...] as of this encounter (statuses as of 02/12/2024) Resolved Problems Problem Noted Date Diagnosed Date [...] as of this encounter (statuses as of 02/12/2024) Immunizations Name Administration Dates Next Due COVID-19 [...] encounter Miscellaneous Notes * Telephone Encounter - Saskia Morataya [facility] - 02/12/2024 8:14 PM EDTSigned Prescriptions: Disp Refills Montelukast Sodium 10 MG Oral Tablet (Sing*90 Tab*1 Sig: Take 1 Tablet by mouth in the morning.Authorizing Provider: SHANA HAMLIN User: SASKIA OMRATAYA documented in this encounter Plan of Treatment [...] eosinophilia documented in this encounter Care Teams Diesel Mechanic Apprentice Relationship Specialty Start Date End Date Shana Hamlin MD [address] [place] [address] PCP - General Family Medicine 08/19/19 documented as of this encounter
--- OUTSIDE RECORDS SUMMARY | 2024-06-20 18:35 | External Medical Summary | Summary of Care ---
Author Name Unknown Organization [facility] Address [address] [facility] [address] Phone [phone] Care Team Providers Care Caustic Purification Operator Name Role Phone Enrico Mccauley MD Primary Care Provider [phone] [phone] Reason for Visit * Reason Onset Date Comments Order Request 01/23/2024 Fax 01/23/2024 Encounter Details Date Type Department Care Team (Late st Contact Info) Description 01/23/2024 Telephone Family Practice [facility] [address] [facility] [place] [address] Enrico Mccauley MD [address] [place] [address] Order Request; Fax Allergies Active Allergy Reactions Criticality Noted Date Comments Gianluca Inhibitors Cough 06/12/2016 Cat Dander 03/31/2020 Ragweed 02/16/2020 Per patient's he is allergic to all weeds, trees, grasses documented as of this encounter (statuses as of 02/06/2024) Medications Medication Sig Dispensed Refills Start Date End Date Status ASPIRIN 81 MG PO TABS one tablet daily Active Blood Glucose Monitoring Suppl ([employer]Wine ULTRA SYSTEM) W/DEVICE KITIndications:Type 2 diabetes mellitus with hemoglobin A1c goal of less than 7.5% ([facility]) Use as directed 2 times a day. E11.9 1 Kit 6 Active Azelastine HCl 0.1 % nasal spray Administer 1 [place] into nostril 2 times a day. 30 [...] A1c goal of less than 8.0% ([facility]) Use up to four times [...] A1c goal of less than 7.5% ([facility]) USE DIRECTED TWICE DAILY. USE [...] Wheezing. 18 g 1 4 Active Ipratropium [place] 0.02 % Inhalation Solution (Atrovent) Inhale 2.5 mL via nebulizer in the morning and 2.5 mL at noon and 2.5 mL in the evening and 2.5 mL before bedtime. 75 mL 12 4 Active Tiotropium [place] Monohydrate 18 MCG Inhalation Capsule (Spiriva)Indication s:Severe [...] asthma with acute exacerbation 150 mg SC [id number] 05/13/2020 Active omalizumab (XOLAIR) inj 150 mgIndications:Poorly controlled severe persistent asthma with acute exacerbation 150 mg SC [id number] 05/13/2020 Active documented as of this encounter (statuses as of 02/06/2024) Active Problems Problem Noted Date Diagnosed Date [...] as of this encounter (statuses as of 02/06/2024) Resolved Problems Problem Noted Date Diagnosed Date [...] as of this encounter (statuses as of 02/06/2024) Immunizations Name Administration Dates Next Due COVID-19 [...] encounter Miscellaneous Notes * Telephone Encounter - Paulie Nathan OSA - 02/06/2024 10:16 AM EDT Noted on encounter from 01/06, awaiting pt to return call to schedule. * Telephone Encounter - Avani Adams LPN - 01/27/2024 10:05 AM EDT Sent to incorrect pool Will need 6 minute walk testing * Telephone Encounter - Ping Hoang OSA - 01/23/2024 3:16 PM EDT Julia from [facility] PT [employer] calling to inform that they received a referral for the patient, but the order is wrong, they require a new order to be placed. Must specify "Portable oxygen concentrator" and include liters per minute They also do not do the 6 minute walk test, and the patient needs to get this done before [employer] cangive him the oxygen. Please update referral and Fax to [phone] documented in this encounter Plan of Treatment [...] filedocumented as of this encounter Care Teams Caustic Purification Operator Relationship Specialty Start Date End Date Enrico Mccauley MD [address] [place] [address] PCP - General Family Medicine 08/19/19 documented as of this encounter
--- OUTSIDE RECORDS SUMMARY | 2024-06-20 18:35 | External Medical Summary | Summary of Care ---
Author Name Unknown Organization [facility] Address [address] [facility] [place] [address] Phone [phone] Care Team Providers Care Product Responsibility Liaison Name Role Phone Enrico Mccauley MD Primary Care Provider [phone] [phone] Reason for Visit * Reason Onset Date Comments Medication Refill 03/16/2024 Encounter Details Date Type Department Care Team (Late st Contact Info) Description 03/16/2024 Refill Family Practice [facility] [address] [place] [address] Enrico Mccauley MD [address] [place] [address] Chronic rhinitis Allergies Active Allergy Reactions Criticality Noted Date Comments Gianluca Inhibitors Cough 06/12/2016 Cat Dander 03/31/2020 Ragweed 02/16/2020 Per patient's he is allergic to all weeds, trees, grasses documented as of this encounter (statuses as of 03/16/2024) Medications Medication Sig Dispensed Refills Start Date End Date Status ASPIRIN 81 MG PO TABS one tablet daily Active Blood Glucose Monitoring Suppl (Everypost ULTRA SYSTEM) W/DEVICE KITIndications:Type 2 diabetes mellitus with hemoglobin A1c goal of less than 7.5% ([facility]) Use as directed 2 times a day. E11.9 1 Kit 07/27/2016 Active Azelastine HCl 0.1 % nasal spray Administer 1 [place] into nostril 2 times a day. 30 [...] A1c goal of less than 8.0% ([facility]) Use up to four times daily to check blood glucose 200 Strip 3 09/28/2022 Active Benzonatate 200 MG Oral Capsule 05/14/2023 Active OneTouch Delica Lancets 33GIndications:Type 2 diabetes mellitus with hemoglobin A1c goal of less than 7.5% ([facility]) USE DIRECTED TWICE DAILY. USE UP [...] Wheezing. 18 g 1 10/27/2023 Active Ipratropium [place] 0.02 % Inhalation Solution (Atrovent) Inhale 2.5 [...] BY MOUTH IN THE MORNING 90 Tablet 01/31/2024 Active Montelukast Sodium 10 MG Oral Tablet (Singulair)Indicati ons:Eosinophilic asthma Take 1 Tablet by mouth in the morning. 90 Tablet 1 02/12/2024 Active Xolair 150 MG/ML Subcutaneous Solution Prefilled Syringe (Omalizumab)Indicat ions:Eosinophilic asthma INJECT 2 SYRINGES UNDER THE SKIN EVERY 4 WEEKS 2 mL 6 02/12/2024 Active Sodium Chloride 3 % Inhalation Nebulization Solution inhale contents of 1 vial via nebulizer every morning and before bedtime 240 mL 02/17/2024 Active Cetirizine HCl 10 MG Oral Tablet (ZyrTEC) Take 1 Tablet by mouth at bedtime. 90 Tablet 1 02/19/2024 Active Mometasone Furoate 50 MCG/ACT Nasal SuspensionIndicatio ns:Chronic rhinitis Administer 2 Sprays into each nostril in the morning. 51 g 1 03/16/2024 Active Mometasone Furoate 50 MCG/ACT Nasal SuspensionIndicatio ns:Chronic rhinitis administer 2 sprays into each nostril daily 51 g 07/04/2023 4 Discontinu ed(Refill) Hospital, Clinic, or Other Facility Administered Medication Ordered Dose Route Frequency Start Date End Date Status omalizumab (XOLAIR) inj 150 mgIndications:Poorly controlled severe persistent asthma with acute exacerbation 150 mg SC [id number] 05/13/2020 Active omalizumab (XOLAIR) inj 150 mgIndications:Poorly controlled severe persistent asthma with acute exacerbation 150 mg SC [id number] 05/13/2020 Active documented as of this encounter (statuses as of 03/16/2024) Active Problems Problem Noted Date Diagnosed Date [...] as of this encounter (statuses as of 03/16/2024) Resolved Problems Problem Noted Date Diagnosed Date [...] as of this encounter (statuses as of 03/16/2024) Immunizations Name Administration Dates Next Due COVID-19 [...] Notes * Telephone Encounter - Charlie Emery [facility] - 03/16/2024 10:46 AM EDTSigned Prescriptions: Disp Refills Mometasone Furoate 50 MCG/ACT Nasal Suspen*51 g 1 Sig: Administer 2 Sprays into each nostril in the morning.Authorizing Provider: RAUL STEPHENS User: CHARLIE LANDA documented in this encounter Plan of Treatment Upcoming Encounters Date Type Department Care Team (Late st Contact Info) Description 04/01/2024 2:00 PM EDT PulmDiagnostic Pulmonary Function Lab, [facility] [address] [place] [address] [place], [address] [address] [place] [address] Scheduled Procedures Name Priority Associated Diagnoses Date/Ti [...] rhinitis documented in this encounter Care Teams Product Responsibility Liaison Relationship Specialty Start Date End Date Enrico Mccauley MD [address] [place] [address] PCP - General Family Medicine 08/19/19 documented as of this encounter
--- OUTSIDE RECORDS SUMMARY | 2024-06-20 18:35 | External Medical Summary | Summary of Care ---
Author Name Unknown Organization [facility] Address [address] [place] [facility] [place] [address] Phone [phone] Care Team Providers Care Intelligence Research Specialist Name Role Phone Enrico Mccauley MD Primary Care Provider [phone] [phone] Reason for Visit * Reason Onset Date Comments Advice 01/07/2024 Encounter Details Date Type Department Care Team (Late st Contact Info) Description 01/07/2024 Telephone Pulmonary Medicine, [facility] [address] [facility] [place] [address] Scot Nunez MD [address] [facility] [id number] Advice Allergies Active Allergy Reactions Criticality Noted Date Comments Gianluca Inhibitors Cough 06/12/2016 Cat Dander 03/31/2020 Ragweed 02/16/2020 Per patient's he is allergic to all weeds, trees, grasses documented as of this encounter (statuses as of 02/06/2024) Medications Medication Sig Dispensed Refills Start Date End Date Status ASPIRIN 81 MG PO TABS one tablet daily Active Blood Glucose Monitoring Suppl (Cytodyn ULTRA SYSTEM) W/DEVICE KITIndications:Type 2 diabetes mellitus with hemoglobin A1c goal of less than 7.5% ([facility]) Use as directed 2 times a day. E11.9 1 Kit 6 Active Azelastine HCl 0.1 % nasal spray Administer 1 [place] into nostril 2 times a day. 30 [...] A1c goal of less than 7.5% ([facility]) USE DIRECTED TWICE DAILY. USE UP [...] Wheezing. 18 g 1 4 Active Ipratropium [place] 0.02 % Inhalation Solution (Atrovent) Inhale 2.5 mL via nebulizer in the morning and 2.5 mL at noon and 2.5 mL in the evening and 2.5 mL before bedtime. 75 mL 12 4 Active Tiotropium [place] Monohydrate 18 MCG Inhalation Capsule (Spiriva)Indication s:Severe [...] MORNING 90 Tablet 4 01/31/20 24 Discontinued Sodium Chloride 3 % Inhalation Nebulization Solution inhale contents of 1 vial via nebulizer every morning and before bedtime 240 mL 4 01/13/20 24 Discontinued Doxycycline Hyclate 100 MG Oral Capsule Take 1 Capsule by mouth in the morning and 1 Capsule before bedtime. 4 01/07/20 24 Hospital, Clinic, or Other Facility Administered Medication Ordered Dose Route Frequency Start Date End Date Status omalizumab (XOLAIR) inj 150 mgIndications:Poorly controlled severe persistent asthma with acute exacerbation 150 mg SC [id number] 05/13/2020 Active omalizumab (XOLAIR) inj 150 mgIndications:Poorly controlled severe persistent asthma with acute exacerbation 150 mg SC [id number] 05/13/2020 Active documented as of this encounter [...] Encounter - Paulie Nathan OSA - 02/06/2024 10:14 AM EDT LMcell asking pt to return call to schedule appt w/ Ashvin in pulm. Please see other encounter as well - pt needs 6 min walk test maritza'd also. * Telephone Encounter - Kavitha Abel LPN - 01/08/2024 9:11 AM EDT Pt aware via a.machine. Please set up follow up appt for 4 weeks and call the pt with a time and date * Telephone Encounter - Scot Nunez MD - 01/07/2024 4:43 PM EDT Pulmonary follow-up in 4 weeks will be okay. * Telephone Encounter - Kavitha Abel LPN - 01/07/2024 1:49 PM EDT Does the pt need a pulm follow up * Telephone Encounter - Scot Nunez MD - 01/07/2024 12:05 PM EDT He should wait at least 2 weeks (to get closer to his usual health status) and then get next Xolairinjection. * Telephone Encounter - Kavitha Abel LPN - 01/07/2024 11:40 AM EDT Pt's called the office with an update: Admitted last week with severe SOB Put on 60 lpm high flow O2. Considered being put on a vent. O2 improved in 24 hours without vent. Sent home on 2 lpm continuous Asking how soon he should be seen for pulm follow up How long til he can get his next Xolair injection documented in this encounter Plan of Treatment [...] filedocumented as of this encounter Care Teams Intelligence Research Specialist Relationship Specialty Start Date End Date Enrico Mccauley MD [address] [place] [address] PCP - General Family Medicine 08/19/19 documented as of this encounter
--- OUTSIDE RECORDS SUMMARY | 2024-06-20 18:35 | External Medical Summary | Summary of Care ---
Author Name Unknown Organization [facility] Address [address] [facility] [address] Phone [phone] Care Team Providers Care Apple Thinner Name Role Phone Shana Hamlin MD Primary Care Provider [phone] Reason for Visit * Reason Comments eRx-Medication Refill Encounter Details Date Type Department Care Team (Late st Contact Info) Description 03/29/2024 Refill Family Practice [facility] [address] [facility] [place] [address] Shana Hamlin MD [address] [facility] [place] [address] Allergies Active Allergy Reactions Criticality Noted Date Comments Gianluca Inhibitors Cough 06/12/2016 Cat Dander 03/31/2020 Ragweed 02/16/2020 Per patient's he is allergic to all weeds, trees, grasses documented as of this encounter (statuses as of 03/31/2024) Medications Medication Sig Dispensed Refills Start Date End Date Status ASPIRIN 81 MG PO TABS one tablet daily Active Blood Glucose Monitoring Suppl ([employer] ULTRA SYSTEM) W/DEVICE KITIndications:Type 2 diabetes mellitus with hemoglobin A1c goal of less than 7.5% ([facility]) Use as directed 2 times a day. E11.9 1 Kit 6 Active Azelastine HCl 0.1 % nasal spray Administer 1 [place] into nostril 2 times a day. 30 [...] hemoglobin A1c goal of less than 8.0% ([facility]) Use up to four times daily to check blood glucose 200 Strip 3 3 Active Benzonatate 200 MG Oral Capsule 3 Active OneTouch Delica Lancets 33GIndications:Type 2 diabetes mellitus with hemoglobin A1c goal of less than 7.5% ([facility]) USE DIRECTED TWICE DAILY. USE UP [...] Wheezing. 18 g 1 4 Active Ipratropium [place] 0.02 % Inhalation Solution (Atrovent) Inhale 2.5 [...] at bedtime. 90 Tablet 1 4 Active Sodium Chloride 3 % Inhalation Nebulization Solution inhale contents of 1 vial via nebulizer every morning and before bedtime 240 mL 4 Active Mometasone Furoate 50 MCG/ACT Nasal SuspensionIndicatio ns:Chronic rhinitis Administer 2 Sprays into each nostril in the morning. 51 g 1 4 Active Omeprazole 20 MG Oral Capsule Delayed Release (PriLOSEC) TAKE 1 CAPSULE BY MOUTH TWICE DAILY 30 MINUTES BEFORE A MEAL 180 Capsule 1 4 Active Omeprazole 20 MG Oral Capsule Delayed Release (PriLOSEC) TAKE 1 CAPSULE BY MOUTH TWICE DAILY 30 MINUTES BEFORE A MEAL 180 Capsule 1 4 03/31/20 24 Discontinued Hospital, Clinic, or Other Facility Administered Medication Ordered Dose Route Frequency Start Date End Date Status omalizumab (XOLAIR) inj 150 mgIndications:Poorly controlled severe persistent asthma with acute exacerbation 150 mg SC [id number] 05/13/2020 Active omalizumab (XOLAIR) inj 150 mgIndications:Poorly controlled severe persistent asthma with acute exacerbation 150 mg SC [id number] 05/13/2020 Active documented as of this encounter (statuses as of 03/31/2024) Active Problems Problem Noted Date Diagnosed Date [...] as of this encounter (statuses as of 03/31/2024) Resolved Problems Problem Noted Date Diagnosed Date [...] as of this encounter (statuses as of 03/31/2024) Immunizations Name Administration Dates Next Due COVID-19 [...] encounter Miscellaneous Notes * Telephone Encounter - Alessandro Velarde [facility] - 03/31/2024 11:59 AM EDT Signed Prescriptions: Disp Refills Omeprazole 20 MG Oral Capsule Delayed Rele*180 Ca*1 Sig: TAKE 1 CAPSULE BY MOUTH TWICE DAILY 30 MINUTES BEFORE A MEAL Authorizing Provider: SHANA HAMLIN Ordering User: ALESSANDRO VELARDE * Telephone Encounter - Interface, [facility] - 03/31/2024 6:03 AM EDT Pending Prescriptions: Disp Refills Omeprazole 20 MG Oral Capsule Delayed Rele*180 Ca*0 Sig: TAKE 1CAPSULE BY MOUTH TWICE DAILY 30 MINUTES BEFORE A MEAL documented in this encounter Plan of Treatment Upcoming Encounters Date Type Department Care Team (Late st Contact Info) Description 04/01/2024 2:00 PM EDT PulmDiagnostic Pulmonary Function Lab, [facility] [address] [place] [address] [place], [address] [place] [id number] Scheduled Procedures Name Priority Associated Diagnoses Date/Ti [...] filedocumented as of this encounter Care Teams Apple Thinner Relationship Specialty Start Date End Date Shana Hamlin MD [address] [facility] [place] [address] PCP - General Family Medicine 08/19/19 documented as of this encounter
--- OUTSIDE RECORDS SUMMARY | 2024-06-20 18:35 | External Medical Summary | Summary of Care ---
Author Name Unknown Organization [facility] Address [address] [facility] [address] Phone [phone] Care Team Providers Care Elevator Operator Name Role Phone Enrico Mccauley MD Primary Care Provider [phone] Reason for Visit * Reason Comments Follow Up Here return pulm. As thma. Encounter Details Date Type Department Care Team (Late st Contact Info) Description 02/12/2024 12:20 PM EDT Office Visit Pulmonary Medicine, [facility] [address] [facility] [place] [address] Scot Nunez MD [address] [facility] [place] [phone] Severe persistent asthma dependent on systemic steroids*; Restrictive lung disease; Neuromuscular respiratory weakness (HCC); PHILLIP (obstructive sleep apnea); Dyslipidemia; Type 2 diabetes mellitus with hemoglobin A1c goal of less than 8.0% ([facility]); Gastroesophageal reflux disease without esophagitis; Eosinophilic asthma Allergies Active Allergy Reactions Criticality Noted Date Comments Gianluca Inhibitors Cough 06/12/2016 Cat Dander 03/31/2020 Ragweed 02/16/2020 Per patient's he is allergic to all weeds, trees, grasses documented as of this encounter (statuses as of 02/12/2024) Medications Medication Sig Dispensed Refills Start Date End Date Status ASPIRIN 81 MG PO TABS one tablet daily Active Blood Glucose Monitoring Suppl ([employer] ULTRA SYSTEM) W/DEVICE KITIndications:Type 2 diabetes mellitus with hemoglobin A1c goal of less than 7.5% ([facility]) Use as directed 2 times a day. E11.9 1 Kit 07/27/2016 Active Azelastine HCl 0.1 % nasal spray Administer 1 [place] into nostril 2 times a day. 30 [...] Wheezing. 18 g 1 10/27/2023 Active Ipratropium [place] 0.02 % Inhalation Solution (Atrovent) Inhale 2.5 [...] days. 15 Tablet 3 11/25/2023 4 Active glipiZIDE 5 MG Oral Tablet [...] every morning and before bedtime 240 mL 01/13/2024 Active predniSONE 5 MG Oral Tablet (Deltasone) TAKE ONE TABLET BY MOUTH IN THE MORNING 90 Tablet 01/31/2024 Active Xolair 150 MG/ML Subcutaneous Solution Prefilled Syringe (Omalizumab)Indicat ions:Eosinophilic asthma INJECT 2 SYRINGES UNDER THE SKIN EVERY 4 WEEKS 2 mL 6 02/12/2024 Active Trelegy Ellipta 100-62.5-25 MCG/ACT Aerosol Powder Breath Activated (Fluticasone-Umecli dinium-Vilanterol) Inhale 1 Puff by mouth in the morning. 60 Blister Dosing Unit 02/12/2024 4 Active Ipratropium-Albuter ol 0.5-2.5 (3) MG/3ML Inhalation Solution (Duoneb)Indications :Moderate persistent asthma with acute exacerbation INHALE THE CONTENTS OF ONE VIAL (3 ML) VIA NEBULIZER FOUR TIMES A DAY NEEDED. 360 mL 5 10/28/2022 4 Discontinu ed(Formula ry/Cost) Breo Ellipta 200-25 MCG/ACT Inhalation Aerosol Powder Breath Activated (fluticasone furoate-vilanterol) Indications:Severe persistent asthma dependent on systemic steroids INHALE 1 PUFF BY MOUTH EVERY MORNING 180 Blister Dosing Unit 3 08/08/2023 4 Discontinu ed(Formula ry/Cost) Xolair 150 MG/ML Subcutaneous Solution Prefilled Syringe (Omalizumab)Indicat ions:Eosinophilic asthma INJECT 2 SYRINGES UNDER THE SKIN EVERY 4 WEEKS 2 mL 6 08/23/2023 4 Discontinu ed(Refill) Tiotropium [place] Monohydrate 18 MCG Inhalation Capsule (Spiriva)Indication s:Severe persistent asthma dependent on systemic steroids INHALE 1 CAPSULE BY MOUTH ONCE DAILY VIA HANDIHALER . DO NOT SWALLOW 30 Capsule 5 11/07/2023 Discontinu ed(Formula ry/Cost) Hospital, Clinic, or Other Facility Administered Medication Ordered Dose Route Frequency Start Date End Date Status omalizumab (XOLAIR) inj 150 mgIndications:Poorly controlled severe persistent asthma with acute exacerbation 150 mg SC [id number] 05/13/2020 Active omalizumab (XOLAIR) inj 150 mgIndications:Poorly controlled severe persistent asthma with acute exacerbation 150 mg SC [id number] 05/13/2020 Active documented as of this encounter [...] Reading Time Taken Comments Blood Pressure 120/70 02/12/2024 12:13 PM EDT Pulse 102 02/12/2024 12:13 PM EDT Temperature 35.8 C (96.4 F) 02/12/2024 12:13 PM E DT Respiratory Rate 16 02/12/2024 12:13 PM EDT Oxygen Saturation 95% 02/12/2024 12:14 PM EDT o2 2L-amb Inhaled Oxygen Concentration - - Weight 73.5 kg (162 lb) 02/12/2024 12:13 PM EDT Height 157.5 cm (5' 2") 02/12/2024 12:13 PM EDT Body Mass Index 29.63 02/12/2024 12:13 PM EDT documented in this encounter Progress Notes * Scot Nunez MD - 02/12/2024 12:18 PM EDT Images from the original note were not included. 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 Patient describes compliance with current bronchodilator regimen including Breo, Arnuity, Spiriva and rescue albuterol. Patient ran out of Xolair refills, requesting refills to continue for maintenance therapy. Patient was off Xolair therapy requiring recent hospitalization. Has been prescribed oxygen since discharge from the hospital. Reports improved respiratory status since using oxygen regularly at 2 L continuous. Limited exercise tolerance, describes episodic cough, wheezing, minimal expectoration. Denies nighttime symptoms. Physical examination significant for class 3 throat, scattered coarse wheezing, scattered rhonchi, no dullness, regular cardiac rhythm, right parasternal systolic murmur, trace lower extremity edema,cushingoid facies and nonlateralizing Neuro examination. We will proceed with renewing Xolair and continue with current low-dose prednisone and maintenance bronchodilator regimen. Patient was advised to discontinue Arnuity , Breo / Spiriva iand Switch overto Trelegy inhaler . Pulmonary History to date: XR CHEST 2 VIEWS - 10/24/2022 shows elevated right hemidiaphragm, normal cardiac silhouette. Right basilar atelectasis noted. PFT 2021 showed restrictive ventilatory pattern with decreased MIP and MEP likely related to diaphragmatic elevation and extrathoracic weakness. - IGE from 03/02/2015 was normal at 66 -03/2020 history of pseudomonas infection seen on lower respiratory panel - Allergens dust mites, cats, pollens, trees, - On singulair and astelin, previously used zyrtec and ICS nasal spray, but has been doing well without it. - non compliant with CPAP -- Unable to tolerate due to claustrophobia - PSG 2019 : AHI:11.2. REM- zero minutes. Jef 83%. 6 minutes below 89%. PLMI-159. - RLD with reduced DLCO and TLC 2020- may be due to right diaphragm elevation, no evidence of ILD on CT scan 03/2020 - 05/2022: absolute eosinophils 100 DATA Pulmonary Stress Test: Performed on 09/2020: Exercise oximetry performed on room air x 6 minutes. Pt ambulated with cane 720 feet/ 219 meters. No rest periods were required. Lowest SPO2 on room air was 92%. 6 min walk 02/2022 : low spo2 on room air was 89%. Walked 151 m. No need for supplemental oxygen Echocardiogram: Performed on 03/2020 Interpretation Summary The examination is adequate to evaluate the referral indication. Sinus tachycardia with rate of 100-112 beats per minute was present during the echocardiogram. The LV wall thickness is moderately increased (concentric). The left ventricular wall motion is normal. The qualitative LV ejection fraction is >70% (hyperdynamic). The left atrium is normal sized. The left ventricular diastolic function is mildly abnormal (grade I). The aortic valve is mildly calcified. Mild aortic valve stenosis is present. Significant tricuspid regurgitation is absent. The spectral Doppler signal is inadequate to calculate right ventricular and pulmnary artery systolic pressure.. Normal pulmonary pressures are suggested by 2-D echo findings. The aortic root and proximal ascending aorta are normal sized. No prior studies are available for comparison. XR CHEST 2 VIEWS - 10/24/2022 12:29 pm HISTORY Shortness of breath TECHNIQUE PA and lateral views of the chest COMPARISON Chest radiographs 01/15/2022. CT chest 05/10/2022.. FINDINGS Heart is normal size. Mediastinal contours are normal. Left lung is clear. Compressive atelectasis of the right lower lobe by the elevated right hemidiaphragm. Right hemidiaphragm is moderately eventrated. No pleural effusion. IMPRESSION IMPRESSION No acute cardiopulmonary abnormality. Chronic compressive atelectasis of the right lower lobe by the eventration of the right hemidiaphragm. CT CHEST WO CONTRAST DATE and TIME: 05/10/2022 9:05 am FINDINGS LUNGS/AIRWAYS: No focal consolidation. Right upper lobe calcified granuloma. No areas of mosaic attenuation to suggest air trapping. Bilateral lower lobe mild bronchiectasis. Dependent scarring/atelectasis at the bases. PLEURA: No pleural effusion or pneumothorax. IMPRESSION: No focal consolidation. Eventration of the right diaphragm. BMI 31. Flow obstructive. Spirometry is restrictive. There is no significant bronchodilator response. Lung volumes with mild restriction and evidence of air trapping versus extrathoracic weakness. Respiratory muscle pressures are severely reduced. MIP is neg 8 (8% of predicted) and MEP is 22 (12% of predicted). DLCO uncorrected for hemoglobin is normal. Overall restrictive lung disease secondary to extrathoracic weakness. Clinical correlation required. Compared to prior PFT from 09/2020 there has been a significant reduction in the FVC, FEV1 and TLC.This interpretation has been electronically signed: Garret Paul 03/20/2022 11:28:17 AM Assessment Severe persistent asthma dependent on systemic steroids (Primary) Restrictive lung disease Neuromuscular respiratory weakness (HCC) PHILLIP (obstructive sleep apnea) Dyslipidemia Type 2 diabetes mellitus with hemoglobin A1c goal of less than 8.0% (HCC) Gastroesophageal reflux disease without esophagitis Assessment/ Recommendations and Plans: Severe persistent asthma Xolair and maintenance prednisone therapy status Elevated right Hemidiaphragm Restrictive ventilatory pattern secondary to extrathoracic weakness/elevated right hemidiaphragm Right upper lobe calcified granuloma Restless legs Diabetes mellitus HLD Diastolic dysfunction GERD Rx: Switch bronchodilator therapy to Trelegy. DC America Munoz, okay to continue with DuoNeb nebulizer, rescue albuterol Continue with current home oxygen therapy status at 2 L continuous use Xolair Renewed C/w Prednisone 5 mg QD Maintain Physical Activity Status F/u 6 months Follow Up: Return in about 6 months (around 08/14/2024) for Clinic Visit. | For: Clinic Visit | Check-out note: evere persistent asthma Xolair and maintenance prednisone therapy status Elevated right Hemidiaphragm Restrictive ventilatory pattern secondary to extrathoracic weakness/elevated right hemidiaphragm Right upper lobe calcified granuloma Restless legs Diabetes mellitus HLD Diastolic dysfunction GERD Rx: Switch bronchodilator therapy to Trelegy. DC America Munoz, okay to continue with DuoNeb nebulizer, rescue albuterol Continue with current home oxygen therapy status at 2 L continuo Follow Up: Return in about 6 months (around 08/14/2024) for Clinic Visit. | For: Clinic Visit | Check-out note: us use Xolair Renewed C/w Prednisone 5 mg QD Maintain Physical Activity Status F/u 6 months Scot Nunez MD Subjective CC: Chief Complaint Patient presents with Follow Up Here return pulm. Asthma. HPI: Nursing Notes: Jessy Sahu LPN 02/12/24 1218 Signed Chief Complaint Patient presents with Follow Up Here return pulm. Asthma. Interm History/Respiratory Symptoms Cough: yes-yellow phlegm Hemoptysis: no Sinus Symptoms: congestion/drainage Hospitalizations: -pneumonia/flu ED Trips: Triggers: perfume,dust,humidity,environmental Nocturnal: sleeps with head elevated CPAP/BiPAP/O2: o2 2L DME Supplier: [employer] Flu Vaccine: 2022 Pneumovax: 2012 Prevnar: 2015 COVID 19: x2. MMRC Dyspnea Scale = 4 (I am too breathless to leave the house or I am breathless when dressing) Objective Filed Vitals: 02/12/24 1213 02/12/24 1214 BP: 120/70 Pulse: 102 Resp: 16 Temp: 35.8 C (96.4 F) TempSrc: Tympanic SpO2: 97% 95% Weight: 73.5 kg (162 lb) Height: 1.575 m (5' 2") Exam: Const: No signs of acute distress present. Head/Face: Normal on inspection. Eyes: Conjunctivae clear. Pupils equal round and reactive to light. ENMT: Oropharynx: No erythema, exudate or masses. Posterior pharynx is normal. Neck: Supple and symmetric. Resp: Respiratory examination as outlined above CV: Rate is regular. Rhythm is regular. No heart murmur appreciated. Extremities: No edema of the lower limbs bilaterally. Skin: Skin is warm and dry. Neuro: Coordination normal. No involuntary movement. Psych: Patient's attitude is cooperative. Mood is normal. Affect is normal. Tests reviewed with the patient: No imaging results in the last 6 months Available Radiologic data was reviewed by me in PACS. The images were shown to the patient and findings were discussed with the patient. HOME MEDICATIONS: Trelegy Ellipta 100-62.5-25 MCG/ACT Aerosol Powder Breath Activated (Cfezbkvzhtn-Xsphwcoyvqxj-Dbzzishdlp) Xolair 150 MG/ML Subcutaneous Solution Prefilled Syringe (Omalizumab) predniSONE 5 MG Oral Tablet (Deltasone) Sodium Chloride 3 % Inhalation Nebulization Solution guaiFENesin ER 600 MG Oral Tablet Extended Release 12 Hour (Humibid LA) glipiZIDE 5 MG Oral Tablet (Glucotrol) Empagliflozin 25 MG Oral Tablet (Jardiance) predniSONE 20 MG Oral Tablet (Deltasone) Ipratropium [place] 0.02 % Inhalation Solution (Atrovent) Albuterol Sulfate HFA 108 (90 Base) MCG/ACT Inhalation Aerosol Solution Omeprazole 20 MG Oral Capsule Delayed Release (PriLOSEC) Metoprolol Succinate ER 25 MG Oral Tablet Extended Release 24 Hour (toPROL XL) Atorvastatin Calcium 20 MG Oral Tablet (Lipitor) Losartan Potassium 25 MG Oral Tablet (Cozaar) Doxazosin Mesylate 2 MG Oral Tablet (Cardura) Levothyroxine Sodium 100 MCG Oral Tablet (Levoxyl) amLODIPine Besylate 5 MG Oral Tablet (Norvasc) Levalbuterol HCl 1.25 MG/3ML Inhalation Nebulization Solution (Xopenex) OneTouch Delica Lancets 33G Mometasone Furoate 50 MCG/ACT Nasal Suspension Montelukast Sodium 10 MG Oral Tablet (Singulair) Benzonatate 200 MG Oral Capsule [facility] Glucose Meter Test Strips In Vitro Strip (Glucose Blood) Vitamin B-12 1000 MCG Oral Tablet SUMAtriptan Succinate 25 MG Oral Tablet (Imitrex) Nitroglycerin 0.4 MG Sublingual Tablet Sublingual (Nitrostat) cetirizine (ZYRTEC) 10 MG Tablet Tadalafil (CIALIS) 20 MG Tablet Azelastine HCl 0.1 % nasal spray Blood Glucose Monitoring Suppl ([employer] SYSTEM) W/DEVICE KIT ASPIRIN 81 MG PO TABS omalizumab (XOLAIR) inj 150 mg omalizumab (XOLAIR) inj 150 mg ROS: No reported history of Hemoptysis, Hematemesis, Melena No reported history of Dysuria, Hematuria, Flank Pain No reported history of chronic headache, seizures No reported history of Fall or trauma . No reported history of recent change in weight or appetite. Past Medical History: Diagnosis Date Allergic rhinitis [...] performed by Garett Gomez MD at ENDOSCOPY [facility] COLONOSCOPY, DIAGNOSTIC (RECTUM) 02/19/2017 adenomatous polyp, diverticulosis, repeat 5 yrs/[facility] REMOVAL OF TONSILS, UNDER AGE 13 Social History Socioeconomic History Marital status: Tobacco Use Smoking status: Never Smokeless tobacco: Never Vaping Use Vaping status: Never Used Substance and Sexual Activity Alcohol use: No Drug use: No Sexual activity: Yes Partners: Female Social History Narrative 1 dog in his home. No mold. Social Determinants of Health Food Insecurity: No Food Insecurity (07/14/2019) Hunger Vital Sign Worried About Running Out of Food in the Last Year: Never true Ran Out of Food in the Last Year: Never true Social Connections Family History Problem Relation Name Age of Onset Diabetes Mother Diabetes Father Asthma Father emphysema, smoker Stroke Father Diabetes Sister Heart disease Brother Rheum arthritis Brother Review of patient's allergies indicates: Allergen Reactions Gianluca Inhibitors Cough Cats [Cat Dander] Environmental [Ragweed] Per patient's he is allergic to all weeds, trees, grasses documented in this encounter Nursing Notes * Jessy Sahu LPN - 02/12/2024 12:15 PM EDT Chief Complaint Patient presents with Follow Up Here return pulm. Asthma. Interm History/Respiratory Symptoms Cough: yes-yellow phlegm Hemoptysis: no Sinus Symptoms: congestion/drainage Hospitalizations: -pneumonia/flu ED Trips: Triggers: perfume,dust,humidity,environmental Nocturnal: sleeps with head elevated CPAP/BiPAP/O2: o2 2L DME Supplier: [employer] Flu Vaccine: 2022 Pneumovax: 2011 Prevnar: 2014 COVID 19: x2. MMRC Dyspnea Scale = 4 (I am too breathless to leave the house or I am breathless when dressing) documented in this encounter Plan of Treatment [...] persistent asthma dependent on systemic steroids- Primary Restrictive lung disease Other diseases of lung, not elsewhere classified Neuromuscular respiratory weakness (HCC) Other diseases of respiratory system, not elsewhere classified PHILLIP (obstructive sleep apnea) Obstructive sleep apnea (adult) (pediatric) Dyslipidemia Other and unspecified hyperlipidemia Type 2 diabetes mellitus with hemoglobin A1c goal of less than 8.0% (HCC) Gastroesophageal reflux disease without esophagitis Esophageal reflux Eosinophilic asthma Pulmonary eosinophilia documented in this encounter Administered Medications Active Administered Medications - up to 3 most recent administrations Medication Order MAR Action Action Date Dose Rate Site omalizumab (XOLAIR) inj 150 mg 150 mg, Subcutaneous, [id number], First dose on Sat05/13/20 at 1315, Until Discontinued, TOTAL DOSE = 150 mg Given 02/12/2024 12:52 PM EDT 150 mg Arm Right Upper Given 11/15/2023 9:30 AM EDT 150 mg Ar m Right Upper Given 10/04/2023 10:06 AM EST 150 mg A rm Right Upper omalizumab (XOLAIR) inj 150 mg 150 mg, Subcutaneous, [id number], First dose on Sat05/13/20 at 1315, Until Discontinued, TOTAL DOSE = 150 mg Given 02/12/2024 12:52 PM EDT 150 mg Arm Left Upper Given 11/15/2023 9:29 AM EDT 150 mg Ar m Left Upper Given 10/04/2023 10:05 AM EST 150 mg A rm Left Upper documented in this encounter Care Teams Elevator Operator Relationship Specialty Start Date End Date Enrico Mccauley MD [address] [facility] [place] [address] PCP - General Family Medicine 08/19/19 documented as of this encounter
--- OUTSIDE RECORDS SUMMARY | 2024-06-20 18:35 | External Medical Summary | Summary of Care ---
Author Name Unknown Organization [facility] Address [address] [facility] [place] [address] Phone [phone] Care Team Providers Care Remote Broadcast Engineer Name Role Phone Enrico Mccauley MD Primary Care Provider [phone] Reason for Visit * Reason Comments Acute Patient presents in office today for concerns with his L forearm -- redness, swelling -- noticed yesterday morning.Denies pain/tenderness/itchiness/drainage -- only notes slight pain when he applies pressure. Encounter Details Date Type Department Care Team (Late st Contact Info) Description 02/19/2024 8:40 AM EDT Office Visit Family Practice [facility] [address] [place] [address] Asmita Munoz CRNP [address] [facility] [facility] [place] [address] Left arm swelling*; Pain of left forearm Allergies Active Allergy Reactions Criticality Noted Date Comments Gianluca Inhibitors Cough 06/12/2016 Cat Dander 03/31/2020 Ragweed 02/16/2020 Per patient's he is allergic to all weeds, trees, grasses documented as of this encounter (statuses as of 02/19/2024) Medications Medication Sig Dispensed Refills Start Date End Date Status ASPIRIN 81 MG PO TABS one tablet daily Active Blood Glucose Monitoring Suppl ([employer] ULTRA SYSTEM) W/DEVICE KITIndications:Type 2 diabetes mellitus with hemoglobin A1c goal of less than 7.5% (HCC) Use as directed 2 times a day. E11.9 1 Kit 07/27/2016 Active Azelastine HCl 0.1 % nasal spray Administer 1 [place] into nostril 2 times a day. 30 [...] Benzonatate 200 MG Oral Capsule 05/14/2023 Active Mometasone Furoate 50 MCG/ACT Nasal SuspensionIndicatio ns:Chronic rhinitis administer 2 sprays into each nostril daily 51 g 07/04/2023 Active [employer] Delica Lancets 33GIndications:Type 2 diabetes mellitus with [...] Wheezing. 18 g 1 10/27/2023 Active Ipratropium [place] 0.02 % Inhalation Solution (Atrovent) Inhale 2.5 [...] 60 Blister Dosing Unit 02/12/2024 4 Active Sodium Chloride 3 % Inhalation Nebulization Solution inhale contents of 1 vial via nebulizer every morning and before bedtime 240 mL 02/17/2024 Active Cetirizine HCl 10 MG Oral Tablet (ZyrTEC) Take 1 Tablet by mouth at bedtime. 90 Tablet 1 02/19/2024 Active Cephalexin 500 MG Oral Capsule Take 1 Capsule by mouth in the morning and 1 Capsule before bedtime. Do all this for 7 days. 14 Capsule 02/19/2024 4 Active cetirizine (ZYRTEC) 10 MG Tablet Take 1 Tab by mouth daily. 90 Tab 3 12/14/2019 4 Discontinu ed(Refill) Hospital, Clinic, or Other Facility Administered Medication Ordered Dose Route Frequency Start Date End Date Status omalizumab (XOLAIR) inj 150 mgIndications:Poorly controlled severe persistent asthma with acute exacerbation 150 mg SC [id number] 05/13/2020 Active omalizumab (XOLAIR) inj 150 mgIndications:Poorly controlled severe persistent asthma with acute exacerbation 150 mg SC [id number] 05/13/2020 Active documented as of this encounter (statuses as of 02/19/2024) Active Problems Problem Noted Date Diagnosed Date [...] as of this encounter (statuses as of 02/19/2024) Resolved Problems Problem Noted Date Diagnosed Date [...] as of this encounter (statuses as of 02/19/2024) Immunizations Name Administration Dates Next Due COVID-19 [...] Sign Reading Time Taken Comments Blood Pressure 126/70 02/19/2024 8:32 AM EDT Pulse 102 02/19/2024 8:32 AM EDT Temperature - - Respiratory Rate 16 02/19/2024 8:32 AM EDT Oxygen Saturation 98% 02/19/2024 8:32 AM EDT Inhaled Oxygen Concentration - - Weight - - Height 157.5 cm (5' 2") 02/19/2024 8:32 AM EDT Body Mass Index - - documented in this encounter Progress Notes * Asmita Munoz CRNP - 02/19/2024 8:37 AM EDT Images from the original note were not included. Acute Family Medicine Visit CC: Chief Complaint Patient presents with Acute Patient presents in office today for concerns with his L forearm -- redness, swelling -- noticed yesterday morning. Denies pain/tenderness/itchiness/drainage -- only notes slight pain when he applies pressure. History of Present Illness: Alcides Sebastian is a 78 year old male presenting today with left arm redness, swelling since yesterday am. Denies trauma. Denies redness, pain. Only tenderness with palpation. He did have XOLAIR shots in both arms last week. He is unsure if he has been bitten by something. He has multiple scabbed abraisions of left superior arm. Social History Socioeconomic History Marital status: Spouse [...] Never true Transportation Needs: Not on file Social Connections: Unknown (01/14/2024) Social Connections How often do you feel lonely or isolated from those around you? (Adult - for ages 18 years and over): Not on file Housing Stability: Not on [...] performed by Garett Gomez MD at ENDOSCOPY [facility] COLONOSCOPY, DIAGNOSTIC (RECTUM) 02/19/2017 adenomatous polyp, diverticulosis, repeat 5 yrs/[facility] REMOVAL OF TONSILS, UNDER AGE 12 Current Outpatient Medications Medication Sig Dispense Refill Sodium Chloride 3 % Inhalation Nebulization Solution inhale contents of 1 vial via nebulizer every morning and before bedtime 240 mL 0 Montelukast Sodium 10 MG Oral Tablet (Singulair) Take 1 Tablet by mouth in the morning. 90 Tablet 1 Trelegy Ellipta 100-62.5-25 MCG/ACT Aerosol Powder Breath Activated (Ycyejiufhli-Odpqiimlqgcl-Kfjzngotfd) Inhale 1 Puff by mouth in the morning. 60 Blister Dosing Unit 0 Xolair 150 MG/ML Subcutaneous Solution Prefilled Syringe (Omalizumab) INJECT 2 SYRINGES UNDER THE SKIN EVERY 4 WEEKS 2 mL 6 predniSONE 5 MG Oral Tablet (Deltasone) TAKE ONE TABLET BY MOUTH IN THE MORNING 90 Tablet 0 guaiFENesin ER 600 MG Oral Tablet Extended Release 12 Hour (Humibid LA) Take 1 Tablet by mouth 2 times a day as needed for Cough or Congestion. glipiZIDE 5 MG Oral Tablet (Glucotrol) TAKE 1 TABLET BY MOUTH TWICE DAILY 30 minutes before a meal 180 Tablet 1 Empagliflozin 25 MG Oral Tablet (Jardiance) Take 1 Tablet by mouth in the morning. 90 Tablet 3 Ipratropium [place] 0.02 % Inhalation Solution (Atrovent) Inhale 2.5 mL via nebulizer in the morning and 2.5 mL at noon and 2.5 mL in the evening and 2.5 mL before bedtime. 75 mL 12 Albuterol Sulfate HFA 108 (90 Base) MCG/ACT Inhalation Aerosol Solution Inhale 2 Puffs by mouth every 4 hours as needed for Wheezing. 18 g 1 Omeprazole 20 MG Oral Capsule Delayed Release (PriLOSEC) TAKE 1 CAPSULE BY MOUTH TWICE DAILY 30 MINUTES BEFORE A MEAL 180 Capsule 1 Metoprolol Succinate ER 25 MG Oral Tablet Extended Release 24 Hour (toPROL XL) Take 0.5 Tablets by mouth in the morning. 30 Tablet 5 Atorvastatin Calcium 20 MG Oral Tablet (Lipitor) Take 1 Tablet by mouth in the morning. 90 Tablet 3 Losartan Potassium 25 MG Oral Tablet (Cozaar) Take 1 Tablet by mouth in the morning. 90 Tablet 3 Doxazosin Mesylate 2 MG Oral Tablet (Cardura) TAKE ONE TABLET BY MOUTH ONE TIME DAILY IN THE EVENING 90 Tablet 3 Levothyroxine Sodium 100 MCG Oral Tablet (Levoxyl) TAKE 1 TABLET BY MOUTH EVERY MORNING (at least 30 minutes prior to breakfast or other meds) 90 Tablet 3 amLODIPine Besylate 5 MG Oral Tablet (Norvasc) TAKE 1 TABLET BY MOUTH EVERY MORNING 90 Tablet 3 Levalbuterol HCl 1.25 MG/3ML Inhalation Nebulization Solution (Xopenex) [employer] Lancets 33G USE DIRECTED TWICE DAILY. USE UP TO FOUR TIMES A DAY DIRECTED. 100 Each 10 Mometasone Furoate 50 MCG/ACT Nasal Suspension administer 2 sprays into each nostril daily 51 g 0 Benzonatate 200 MG Oral Capsule [facility] Glucose Meter Test Strips In Vitro Strip (Glucose Blood) Use up to four times daily to check blood glucose 200 Strip 3 Vitamin B-12 1000 MCG Oral Tablet TAKE 1 TABLET BY MOUTH ONCE DAILY 100 Tablet 2 SUMAtriptan Succinate 25 MG Oral Tablet (Imitrex) take 2 tablets by mouth at onset of migraine, and1 tablet every 2 hours if needed; not more than 5 tablets in 24 hours 6 Tablet 11 Nitroglycerin 0.4 MG Sublingual Tablet Sublingual (Nitrostat) Place 1 Tab under the tongue every 5 minutes as needed for Pain, Chest. up to 3 doses in 15 minutes 25 Tab 11 cetirizine (ZYRTEC) 10 MG Tablet Take 1 Tab by mouth daily. 90 Tab 3 Tadalafil (CIALIS) 20 MG Tablet Take 1 Tab by mouth daily as needed for Erectile Dysfunction. Priorto intercourse, no more than 1 dose in 24 hours. 24 Tab 3 Azelastine HCl 0.1 % nasal spray Administer 1 [place] into nostril 2 times a day. 30 mL 5 Blood Glucose Monitoring Suppl ([employer] SYSTEM) W/DEVICE KIT Use as directed 2 times a day. E11.9 1 Kit 0 ASPIRIN 81 MG PO TABS one tablet daily Current Facility-Administered Medications Medication Dose Route Frequency Provider Last Rate Last Admin omalizumab (XOLAIR) inj 150 mg 150 mg Subcutaneous Q4 Weeks Asmita Munoz CRNP 150 mg at 02/12/24 1252 omalizumab (XOLAIR) inj 150 mg 150 mg Subcutaneous Q4 Weeks Asmita Munoz, PLANT ANATOMIST 150 mg at 02/12/24 1252 Review of patient's allergies indicates: Allergen Reactions [...] 05/28/2014 TDAP (age 10 and older)(Boostrix) 02/06/2019 TDAP, Age 7 and older, IM (Adacel) 03/04/2007 Varicella Zoster Vaccine (Adult) 04/18/2012 Review of Systems: Review of Systems Constitutional: Negative for fatigue and fever. Respiratory: Positive for shortness of breath. At baseline Musculoskeletal: Positive for myalgias. Skin: Positive for color change and rash. Physical Exam: BP 126/70 | Pulse 102 | Resp 16 | Ht 1.575 m (5' 2") | SpO2 98% | BMI 29.63 kg/m | BSA 1.79 m Physical Exam HENT: Head: Normocephalic. Cardiovascular: Rate and Rhythm: Normal rate. Pulmonary: Effort: Pulmonary effort is normal. Breath sounds: Rales present. Skin: Comments: Swelling and mild erythema It is mild tender and warm to touch Neurological: General: No focal deficit present. Mental Status: He is alert and oriented to person, place, and time. Psychiatric: Mood and Affect: Mood normal. Behavior: Behavior normal. Thought Content: Thought content normal. Judgment: Judgment normal. Assessment and Plan: 1. Left arm swelling X 2 days No fever Got xolair shots last week He does have abraisions with scabs on superior forearm Add keflex Add prednisone x 5 days Add zyrtec - VASC DUPLEX VENOUS UE UNILAT; Future 2. Pain of left forearm R/o upper extremity dvt I have advised the patient to call our office incase of any worsening or new symptoms. I spent a total of 20-29 minutes (exact time 25 mins) on the date of service in preparation, delivery, and documentation of the care provided to Alcides Sebastian excluding any time spent in the performance of separately billed services. Larry, MSN, MARIA GUADALUPE [facility] documented in this encounter Nursing Notes * Ghada Betancourt MED ASSIST - 02/19/2024 8:32 AM EDT The patient has been properly identified by confirmation of name and date of . Chief Complaint Patient presents with Acute Patient presents in office today for concerns with his L forearm -- redness, swelling -- noticed yesterday morning. Denies pain/tenderness/itchiness/drainage -- only notes slight pain when he applies pressure. documented in this encounter Plan of Treatment Pending Results Name Type Priority Associated Diagnoses Date /Time VASC DUPLEX VENOUS UE UNILAT Medical Imaging STAT Left arm swelling 02/19/2024 8:58 AM EDT Scheduled Orders Name Type Priority Associated Diagnoses Orde r Schedule VASC DUPLEX VENOUS UE UNILAT Medical Imaging STAT Left arm swelling Expected: 02/19/2024, Expires: 03/21/2025 Scheduled Procedures Name Priority Associated Diagnoses Date/Ti [...] as of this encounter Visit Diagnoses Diagnosis Left arm swelling- Primary Swelling of limb Pain of left forearm Pain in limb documented in this encounter Care Teams Remote Broadcast Engineer Relationship Specialty Start Date End Date Enrico Mccauley MD [address] [place] [address] PCP - General Family Medicine 08/19/19 documented as of this encounter
--- OUTSIDE RECORDS SUMMARY | 2024-06-20 18:35 | External Medical Summary | Summary of Care ---
Author Name Unknown Organization [facility] Address [address] [facility] [place] [address] Phone [phone] Care Team Providers Care Automation And Controls Supervisor Name Role Phone Enrico Mccauley MD Primary Care Provider [phone] Reason for Visit * Reason Onset Date Comments Advice 01/07/2024 Encounter Details Date Type Department Care Team (Late st Contact Info) Description 01/07/2024 Telephone Pulmonary Medicine, [facility] [address] [facility] [place] [address] Scot Nunez MD [address] [facility] [id number] Advice Allergies Active Allergy Reactions Criticality Noted Date Comments Gianluca Inhibitors Cough 06/12/2016 Cat Dander 03/31/2020 Ragweed 02/16/2020 Per patient's he is allergic to all weeds, trees, grasses documented as of this encounter (statuses as of 02/06/2024) Medications Medication Sig Dispensed Refills Start Date End Date Status ASPIRIN 81 MG PO TABS one tablet daily Active Blood Glucose Monitoring Suppl ([employer] ULTRA SYSTEM) W/DEVICE KITIndications:Type 2 diabetes mellitus with hemoglobin A1c goal of less than 7.5% ([facility]) Use as directed 2 times a day. E11.9 1 Kit 6 Active Azelastine HCl 0.1 % nasal spray Administer 1 [place] into nostril 2 times a day. 30 [...] of less than 8.0% ([facility]) Use up to four times daily to [...] of less than 7.5% ([facility]) USE DIRECTED TWICE DAILY. USE UP TO [...] Wheezing. 18 g 1 4 Active Ipratropium [place] 0.02 % Inhalation Solution (Atrovent) Inhale 2.5 mL via nebulizer in the morning and 2.5 mL at noon and 2.5 mL in the evening and 2.5 mL before bedtime. 75 mL 12 4 Active Tiotropium [place] Monohydrate 18 MCG Inhalation Capsule (Spiriva)Indication s:Severe [...] asthma with acute exacerbation 150 mg SC [id number] 05/13/2020 Active omalizumab (XOLAIR) inj 150 mgIndications:Poorly controlled severe persistent asthma with acute exacerbation 150 mg SC [id number] 05/13/2020 Active documented as of this encounter [...] to schedule appt w/ Ashvin in pulm. * Telephone Encounter - Kavitha Abel LPN [...] filedocumented as of this encounter Care Teams Automation And Controls Supervisor Relationship Specialty Start Date End Date Enrico Mccauley MD [address] [place] [address] PCP - General Family Medicine 08/19/19 documented as of this encounter
--- OUTSIDE RECORDS SUMMARY | 2024-06-20 18:35 | External Medical Summary | Summary of Care ---
Author Name Unknown Organization [facility] Address [address] [facility] [place] [address] Phone [phone] Care Team Providers Care Pharmacy Delivery Driver Name Role Phone Enrico Mccauley MD Primary Care Provider [phone] Reason for Visit * Reason Comments Cough Pt here for a cough with phlegm for the last 2-3 days. Pt reports that he has a history of pneumonia. Encounter Details Date Type Department Care Team (Late st Contact Info) Description 04/13/2024 10:00 AM EDT Office Visit Family Practice [facility] [address] [place] [address] [place] MD [address] [place] [address] Chronic respiratory failure with hypoxia (HCC)*; Eosinophilic asthma Allergies Active Allergy Reactions Criticality Noted Date Comments Gianluca Inhibitors Cough 06/12/2016 Cat Dander 03/31/2020 Ragweed 02/16/2020 Per patient's he is allergic to all weeds, trees, grasses documented as of this encounter (statuses as of 04/13/2024) Medications Medication Sig Dispensed Refills Start Date End Date Status ASPIRIN 81 MG PO TABS one tablet daily Active Blood Glucose Monitoring Suppl ([employer] ULTRA SYSTEM) W/DEVICE KITIndications:Type 2 diabetes mellitus with hemoglobin A1c goal of less than 7.5% ([facility]) Use as directed 2 times a day. E11.9 1 Kit 07/27/2016 Active Azelastine HCl 0.1 % nasal spray Administer 1 [place] into nostril 2 times a day. [...] Wheezing. 18 g 1 10/27/2023 Active Ipratropium [place] 0.02 % Inhalation Solution (Atrovent) Inhale 2.5 [...] at bedtime. 90 Tablet 1 02/19/2024 Active Sodium Chloride 3 % Inhalation Nebulization Solution inhale contents of 1 vial via nebulizer every morning and before bedtime 240 mL 03/16/2024 Active Mometasone Furoate 50 MCG/ACT Nasal SuspensionIndicatio ns:Chronic rhinitis Administer 2 Sprays into each nostril in the morning. 51 g 1 03/16/2024 Active Omeprazole 20 MG Oral Capsule Delayed Release (PriLOSEC) TAKE 1 CAPSULE BY MOUTH TWICE DAILY 30 MINUTES BEFORE A MEAL 180 Capsule 1 03/31/2024 Active Azithromycin 250 MG Oral Tablet (Zithromax) Take 2 tabs by mouth on the first day, then 1 tab daily on days two through five 6 Tablet 04/13/2024 4 Active predniSONE 20 MG Oral Tablet (Deltasone) 2 tabs daily x 3 days then 1 tab daily x 4 days in morning with food 10 Tablet 04/13/2024 Active predniSONE 5 MG Oral Tablet (Deltasone) TAKE ONE TABLET BY MOUTH IN THE MORNING 90 Tablet 01/31/2024 4 Discontinu ed(Medicat ion List Clean Up) Hospital, Clinic, or Other Facility Administered Medication Ordered Dose Route Frequency Start Date End Date Status omalizumab (XOLAIR) inj 150 mgIndications:Poorly controlled severe persistent asthma with acute exacerbation 150 mg SC [id number] 05/13/2020 Active omalizumab (XOLAIR) inj 150 mgIndications:Poorly controlled severe persistent asthma with acute exacerbation 150 mg SC [id number] 05/13/2020 Active documented as of this encounter (statuses as of 04/13/2024) Active Problems Problem Noted Date Diagnosed Date [...] as of this encounter (statuses as of 04/13/2024) Resolved Problems Problem Noted Date Diagnosed Date [...] as of this encounter (statuses as of 04/13/2024) Immunizations Name Administration Dates Next Due COVID-19 [...] Sign Reading Time Taken Comments Blood Pressure 132/72 04/13/2024 9:45 AM EDT Pulse 108 04/13/2024 9:45 AM EDT Temperature 36.1 C (96.9 F) 04/13/2024 9 :45 AM EDT Respiratory Rate 16 04/13/2024 9:45 AM EDT Oxygen Saturation 92% 04/13/2024 9:4 5 AM EDT on 2L O2 via N/C Inhaled Oxygen Concentration - - Weight 73.5 kg (162 lb) 04/13/2024 9:45 AM EDT Height 159.3 cm (5' 2.72") 04/13/2024 9 :45 AM EDT Body Mass Index 28.95 04/13/2024 9:45 AM EDT documented in this encounter Progress Notes * [place] MD - 04/13/2024 10:17 AM EDT Images from the original note were not included. History of Present Illness Alcides Sebastian is a 78 year old male that presents for Cough (Pt here for a cough with phlegmfor the last 2-3 days. Pt reports that he has a history of pneumonia. ) Patient is O2 dependent and on 2LNC. He has had no recent weight gain. Physical Exam BP 132/72 (BP Site: Left Arm, BP Position: Sitting, BP Cuff Size: Regular) | Pulse 108 | Temp 36.1 C (96.9 F) (Tympanic) | Resp 16 | Ht 1.593 m (5' 2.72") | Wt 73.5 kg (162 lb) | SpO2 92% Comment: on 2L O2 via N/C | BMI 28.95 kg/m | BSA 1.8 m AAOx3, fatigued appearg Normal affect NCAT/ Neck supple Regular rhythm with weight around 100 Poor air movement, rhonchi b/l lungs, faint exp wheezing, no stridor Abd soft +BS Ext warm and well perfused No gross neuro deficits No LE edema Normal gait but slow to stand from seated position I have reviewed most recent labs None Assessment and Plan Chronic respiratory failure with hypoxia (HCC) - acute on chronic. Negative home covid test. Increased O2 supply. No evidence of HF exac. Moving air poorly but is in no extremis and having acute cough. Will treat with course of abx + steroid taper. Hx of improvement w/ the same. Eosinophilic asthma - underlying. Wrap-Up Prn/scheduled Time: I spent a total of 10-19 minutes (exact time 17 mins) on the date of service in preparation, delivery, and documentation of the care provided to Alcides Sebastian excluding any time spent in the performance of separately billed services. documented in this encounter Plan of Treatment [...] of this encounter Visit Diagnoses Diagnosis Chronic respiratory failure with hypoxia (HCC)- Primary Chronic respiratory failure Eosinophilic asthma Pulmonary eosinophilia documented in this encounter Care Teams Pharmacy Delivery Driver Relationship Specialty Start Date End Date Enrico Mccauley MD [address] [place] [id number] PCP - General Family Medicine 08/19/19 documented as of this encounter
--- OUTSIDE RECORDS SUMMARY | 2024-06-20 18:35 | External Medical Summary | Summary of Care ---
Author Name Unknown Organization [facility] Address [address] [facility] [address] Phone [phone] Care Team Providers Care Graphite Grinder Name Role Phone Shana Hamlin MD Primary Care Provider [phone] [phone] Reason for Visit * Reason Comments eRx-Medication Refill Encounter Details Date Type Department Care Team (Late st Contact Info) Description 03/16/2024 Refill Family Practice [facility] 132 [facility] [place] [address] Shana Hamlin MD 132 [facility] [place] [address] Allergies Active Allergy Reactions Criticality Noted Date Comments Gianluca Inhibitors Cough 06/12/2016 Cat Dander 03/31/2020 Ragweed 02/16/2020 Per patient's he is allergic to all weeds, trees, grasses documented as of this encounter (statuses as of 03/16/2024) Medications Medication Sig Dispensed Refills Start Date End Date Status ASPIRIN 81 MG PO TABS one tablet daily Active Blood Glucose Monitoring Suppl (AllPeersUCH ULTRA SYSTEM) W/DEVICE KITIndications:Type 2 diabetes mellitus with hemoglobin A1c goal of less than 7.5% ([facility]) Use as directed 2 times a day. E11.9 1 Kit 6 Active Azelastine HCl 0.1 % nasal spray Administer 1 [place] into nostril 2 times a day. 30 [...] Wheezing. 18 g 1 4 Active Ipratropium [place] 0.02 % Inhalation Solution (Atrovent) Inhale 2.5 [...] the morning. 51 g 1 4 Active Sodium Chloride 3 % Inhalation Nebulization Solution inhale contents of 1 vial via nebulizer every morning and before bedtime 240 mL 4 03/16/20 24 Discontinued Hospital, Clinic, or Other Facility Administered Medication Ordered Dose Route Frequency Start Date End Date Status omalizumab (XOLAIR) inj 150 mgIndications:Poorly controlled severe persistent asthma with acute exacerbation 150 mg SC [id number] 05/13/2020 Active omalizumab (XOLAIR) inj 150 mgIndications:Poorly controlled severe persistent asthma with acute exacerbation 150 mg SC [id number] 05/13/2020 Active documented as of this encounter [...] Telephone Encounter - Shana Hamlin MD - 03/16/2024 3:37 PM EDTSigned Prescriptions: Disp Refills Sodium Chloride 3 % Inhalation Nebulizatio*240 mL 0 Sig: inhale contents of 1 vial via nebulizer every morning and before bedtime Authorizing Provider: SHANA HAMLIN * Telephone Encounter - Avani Murillo LPN - 03/16/2024 3:34 PM EDTPending Prescriptions: Disp Refills Sodium Chloride 3 % Inhalation Nebulizatio*240 mL 0 Sig: inhale contents of 1 vial via nebulizer every morning and before bedtime * Telephone Encounter - Avani Murillo LPN - 03/16/2024 3:33 PM EDT Did you pend patient's preferred pharmacy and medication before forwarding?yes Pharmacy: [id number] Pending Prescriptions: Disp Refills Sodium Chloride 3 % Inhalation Nebulizati*240 mL 0 Sig: inhale contents of 1 vial via nebulizer every morning and before bedtime Last Visit: 02/19/2024 (in office), Visit date not found (telemedicine) Next Visit: Visit date not found If no future appointments scheduled, and last appointment is greater than a year ago, please schedule patient for a follow-up appointment Last date the medication was ordered: 02/17/24 Is this request for a controlled substance?No [...] * Telephone Encounter - Zhang Tucker - 03/16/2024 1:45 PM EDTPending Prescriptions: Disp Refills Sodium Chloride 3 % Inhalation Nebulizatio*240 mL 0 Sig: inhalecontents of 1 vial via nebulizer every morning and before bedtime documented in this encounter Plan of Treatment Upcoming Encounters Date Type Department Care Team (Late st Contact Info) Description 04/01/2024 2:00 PM EDT PulmDiagnostic Pulmonary Function Lab, [facility] [address] [place] [address] [place], [address] [place] [address] Scheduled Procedures Name Priority Associated Diagnoses Date/Ti [...] filedocumented as of this encounter Care Teams Graphite Grinder Relationship Specialty Start Date End Date Shana Hamlin MD 132 [facility] [place] [address] PCP - General Family Medicine 08/19/19 documented as of this encounter
--- OUTSIDE RECORDS SUMMARY | 2024-06-20 18:36 | External Medical Summary | Summary of Care ---
Author Name Unknown Organization [facility] Address [address] [facility] [address] Phone [phone] Care Team Providers Care Baker Pie Name Role Phone Enrico Mccauley MD Primary Care Provider [phone] Reason for Visit * Reason Onset Date Comments Advice 01/15/2024 Encounter Details Date Type Department Care Team (Late st Contact Info) Description 01/15/2024 Telephone Pulmonary Medicine, [facility] 132 [facility] [place] [address] Scot Nunez MD [address] [facility] [place] [id number] Advice Allergies Active Allergy Reactions Criticality Noted Date Comments Gianluca Inhibitors Cough 06/12/2016 Cat Dander 03/31/2020 Ragweed 02/16/2020 Per patient's he is allergic to all weeds, trees, grasses documented as of this encounter (statuses as of 01/16/2024) Medications Medication Sig Dispensed Refills Start Date End Date Status ASPIRIN 81 MG PO TABS one tablet daily Active Blood Glucose Monitoring Suppl (QuicklyChat ULTRA SYSTEM) W/DEVICE KITIndications:Type 2 diabetes mellitus with hemoglobin A1c goal of less than 7.5% ([facility]) Use as directed 2 times a day. E11.9 1 Kit 07/27/2016 Active Azelastine HCl 0.1 % nasal spray Administer 1 [place] into nostril 2 times a day. 30 [...] 06/06/2023 Active Mometasone Furoate 50 MCG/ACT Nasal SuspensionIndication [...] THE MORNING 90 Tablet 11/01/2023 Active Ipratropium [place] 0.02 % Inhalation Solution (Atrovent) Inhale 2.5 mL via nebulizer in the morning and 2.5 mL at noon and 2.5 mL in the evening and 2.5 mL before bedtime. 75 mL 12 11/01/2023 Active Tiotropium [place] Monohydrate 18 MCG Inhalation Capsule (Spiriva)Indications :Severe [...] and before bedtime 240 mL 01/13/2024 Active Hospital, Clinic, or Other Facility Administered Medication Ordered Dose Route Frequency Start Date End Date Status omalizumab (XOLAIR) inj 150 mgIndications:Poorly controlled severe persistent asthma with acute exacerbation 150 mg SC [id number] 05/13/2020 Active omalizumab (XOLAIR) inj 150 mgIndications:Poorly controlled severe persistent asthma with acute exacerbation 150 mg SC [id number] 05/13/2020 Active documented as of this encounter (statuses as of 01/16/2024) Active Problems Problem Noted Date Diagnosed Date [...] as of this encounter (statuses as of 01/16/2024) Resolved Problems Problem Noted Date Diagnosed Date [...] as of this encounter (statuses as of 01/16/2024) Immunizations Name Administration Dates Next Due COVID-19 [...] Miscellaneous Notes * Telephone Encounter - Scot Nunez MD - 01/16/2024 7:37 AM EDT Regarding appointment, we are okay with a video visit or an in-person visit as soon as schedule permitting. Please request family to share oxygen saturation monitoring results if they have monitored oxygen saturation at home. * Telephone Encounter - Kavitha Abel LPN - 01/15/2024 2:00 PM EDT Pt's called in today concerned about the pt's O2 sat. States the pt is SOB at rest on 2 LPM. Also the pt is still waiting on a call from scheduling about an appt that was to be set up for him after his hosp d/c. Per phn encounter on 01/07/24 pt was to have an appt in 4 weeks. documented in this encounter Plan of Treatment Upcoming Encounters Date Type Department Care Team (Late st Contact Info) Description 02/07/2024 10:35 AM EDT Cardiac Studies Cardiac Studies, [facility] [address] [place] [id number] Scheduled Procedures Name Priority Associated Diagnoses Date/Ti [...] filedocumented as of this encounter Care Teams Baker Pie Relationship Specialty Start Date End Date Enrico Mccauley MD [address] [place] [address] PCP - General Family Medicine 08/19/19 documented as of this encounter
--- OUTSIDE RECORDS SUMMARY | 2024-06-20 18:36 | External Medical Summary | Summary of Care ---
Author Name Unknown Organization [facility] Address [address] [facility] [address] Phone [phone] Care Team Providers Care Business Intelligence Manager Name Role Phone Enrico Mccauley MD Primary Care Provider [phone] Reason for Visit * Reason Onset Date Comments Advice 01/07/2024 Encounter Details Date Type Department Care Team (Late st Contact Info) Description 01/07/2024 Telephone Pulmonary Medicine, [facility] 132 [facility] [place] [address] Scot Nunez MD [address] [facility] [place] [id number] Advice Allergies Active Allergy Reactions Criticality Noted Date Comments Gianluca Inhibitors Cough 06/12/2016 Cat Dander 03/31/2020 Ragweed 02/16/2020 Per patient's he is allergic to all weeds, trees, grasses documented as of this encounter (statuses as of 01/07/2024) Medications Medication Sig Dispensed Refills Start Date End Date Status ASPIRIN 81 MG PO TABS one tablet daily Active Blood Glucose Monitoring Suppl (Gigturn ULTRA SYSTEM) W/DEVICE KITIndications:Type 2 diabetes mellitus with hemoglobin A1c goal of less than 7.5% ([facility]) Use as directed 2 times a day. E11.9 1 Kit 07/27/2016 Active Azelastine HCl 0.1 % nasal spray Administer 1 [place] into nostril 2 times a day. 30 [...] goal of less than 8.0% ([facility]) Use up to four times daily to [...] goal of less than 7.5% ([facility]) USE DIRECTED TWICE DAILY. USE UP TO [...] THE MORNING 90 Tablet 11/01/2023 Active Ipratropium [place] 0.02 % Inhalation Solution (Atrovent) Inhale 2.5 mL via nebulizer in the morning and 2.5 mL at noon and 2.5 mL in the evening and 2.5 mL before bedtime. 75 mL 12 11/01/2023 Active Tiotropium [place] Monohydrate 18 MCG Inhalation Capsule (Spiriva)Indications :Severe [...] a meal 180 Tablet 1 12/25/2023 Active Doxycycline Hyclate 100 MG Oral Capsule Take 1 Capsule by mouth in the morning and 1 Capsule before bedtime. 01/03/2024 Active guaiFENesin ER 600 MG Oral Tablet Extended Release 12 Hour (Humibid [place]) Take 1 Tablet by mouth 2 times a day as needed for Cough or Congestion. Active Hospital, Clinic, or Other Facility Administered Medication Ordered Dose Route Frequency Start Date End Date Status omalizumab (XOLAIR) inj 150 mgIndications:Poorly controlled severe persistent asthma with acute exacerbation 150 mg SC [id number] 05/13/2020 Active omalizumab (XOLAIR) inj 150 mgIndications:Poorly controlled severe persistent asthma with acute exacerbation 150 mg SC [id number] 05/13/2020 Active documented as of this encounter (statuses as of 01/07/2024) Active Problems Problem Noted Date Diagnosed Date [...] as of this encounter (statuses as of 01/07/2024) Resolved Problems Problem Noted Date Diagnosed Date [...] as of this encounter (statuses as of 01/07/2024) Immunizations Name Administration Dates Next Due COVID-19 [...] encounter Miscellaneous Notes * Telephone Encounter - Kavitha Abel LPN [...] Care Team (Late st Contact Info) Description 01/10/2024 11:00 AM EDT Office Visit Family Practice [facility] [address] [place] [address] Enrico Mccauley MD [address] [place] [address] 02/07/2024 10:35 AM EDT Cardiac Studies Cardiac Studies, [facility] [address] [place] [address] Scheduled Procedures Name Priority Associated Diagnoses Date/Ti [...] filedocumented as of this encounter Care Teams Business Intelligence Manager Relationship Specialty Start Date End Date Enrico Mccauley MD 132 [facility] [place] [address] PCP - General Family Medicine 08/19/19 documented as of this encounter
--- OUTSIDE RECORDS SUMMARY | 2024-06-20 18:36 | External Medical Summary | Summary of Care ---
Author Name Unknown Organization [facility] Address [address] [place] [facility] [place] [address] Phone [phone] Care Team Providers Care Scanning Supervisor Name Role Phone Enrico Mccauley MD Primary Care Provider [phone] [phone] Reason for Visit * Reason Onset Date Comments Advice 01/15/2024 Re: oxygen sats Encounter Details Date Type Department Care Team (Late st Contact Info) Description 01/15/2024 Telephone Pulmonary Medicine, [facility] 132 [facility] [place] [address] Scot Nunez MD [address] [facility] [place] [address] Advice (Re: oxygen sats) Allergies Active Allergy Reactions Criticality Noted Date Comments Gianluca Inhibitors Cough 06/12/2016 Cat Dander 03/31/2020 Ragweed 02/16/2020 Per patient's he is allergic to all weeds, trees, grasses documented as of this encounter (statuses as of 01/16/2024) Medications Medication Sig Dispensed Refills Start Date End Date Status ASPIRIN 81 MG PO TABS one tablet daily Active Blood Glucose Monitoring Suppl (InPlace ULTRA SYSTEM) W/DEVICE KITIndications:Type 2 diabetes mellitus with hemoglobin A1c goal of less than 7.5% ([facility]) Use as directed 2 times a day. E11.9 1 Kit 07/27/2016 Active Azelastine HCl 0.1 % nasal spray Administer 1 [place] into nostril 2 times a day. 30 [...] THE MORNING 90 Tablet 11/01/2023 Active Ipratropium [place] 0.02 % Inhalation Solution (Atrovent) Inhale 2.5 mL via nebulizer in the morning and 2.5 mL at noon and 2.5 mL in the evening and 2.5 mL before bedtime. 75 mL 12 11/01/2023 Active Tiotropium [place] Monohydrate 18 MCG Inhalation Capsule (Spiriva)Indications :Severe [...] asthma with acute exacerbation 150 mg SC [id number] 05/13/2020 Active omalizumab (XOLAIR) inj 150 mgIndications:Poorly controlled severe persistent asthma with acute exacerbation 150 mg SC [id number] 05/13/2020 Active documented as of this encounter [...] Telephone Encounter - Kavitha Abel LPN - 01/16/2024 10:41 AM EDT Left a message for the pt to return phn call to the office. * Telephone Encounter - Scot Nunez MD [...] Cardiac Studies, [facility] 132 [facility] [place] [address] Scheduled Procedures [...] filedocumented as of this encounter Care Teams Scanning Supervisor Relationship Specialty Start Date End Date Enirco Mccauley MD [address] [place] [address] PCP - General Family Medicine 08/19/19 documented as of this encounter
--- OUTSIDE RECORDS SUMMARY | 2024-06-20 18:36 | External Medical Summary | Summary of Care ---
Author Name Unknown Organization [facility] Address [address] [facility] [place] [address] Phone [phone] Care Team Providers Care Fur Feeder Name Role Phone Enrico Mccauley MD Primary Care Provider [phone] Reason for Visit * Reason Onset Date Comments Advice 01/15/2024 Re: oxygen sats Encounter Details Date Type Department Care Team (Late st Contact Info) Description 01/15/2024 Telephone Pulmonary Medicine, [facility] 132 [facility] [place] [address] Scot Nunez MD [address] [facility] [place] [address] Advice (Re: oxygen sats) Allergies Active Allergy Reactions Criticality Noted Date Comments Gianluca Inhibitors Cough 06/12/2016 Cat Dander 03/31/2020 Ragweed 02/16/2020 Per patient's he is allergic to all weeds, trees, grasses documented as of this encounter (statuses as of 01/17/2024) Medications Medication Sig Dispensed Refills Start Date End Date Status ASPIRIN 81 MG PO TABS one tablet daily Active Blood Glucose Monitoring Suppl ([place] ULTRA SYSTEM) W/DEVICE KITIndications:Type 2 diabetes mellitus with hemoglobin A1c goal of less than 7.5% ([facility]) Use as directed 2 times a day. E11.9 1 Kit 07/27/2016 Active Azelastine HCl 0.1 % nasal spray Administer 1 [place] into nostril 2 times a day. 30 [...] THE MORNING 90 Tablet 11/01/2023 Active Ipratropium [place] 0.02 % Inhalation Solution (Atrovent) Inhale 2.5 mL via nebulizer in the morning and 2.5 mL at noon and 2.5 mL in the evening and 2.5 mL before bedtime. 75 mL 12 11/01/2023 Active Tiotropium [place] Monohydrate 18 MCG Inhalation Capsule (Spiriva)Indications :Severe [...] asthma with acute exacerbation 150 mg SC [id number] 05/13/2020 Active omalizumab (XOLAIR) inj 150 mgIndications:Poorly controlled severe persistent asthma with acute exacerbation 150 mg SC [id number] 05/13/2020 Active documented as of this encounter (statuses as of 01/17/2024) Active Problems Problem Noted Date Diagnosed Date [...] as of this encounter (statuses as of 01/17/2024) Resolved Problems Problem Noted Date Diagnosed Date [...] as of this encounter (statuses as of 01/17/2024) Immunizations Name Administration Dates Next Due COVID-19 [...] Telephone Encounter - Kavitha Abel LPN - 01/17/2024 10:35 AM EDT Pt's states the pt's sat's are running 92-94 of 2 lpm at rest. Ptis feeling better but stayingindoors. Pt / were advised to call the office if he get's SOB again and his O2 sat's drop. Pt will need an in person office visit with in 2 weeks * Telephone Encounter - Kavitha Abel LPN - 01/16/2024 10:41 AM EDT Left a message for the pt to return n call to the office. * Telephone Encounter [...] 10:35 AM EDT Cardiac Studies [address] Studies, [address] [place] [address] Scheduled Procedures Name Priority Associated Diagnoses Date/Ti me COLONOSCOPY FLEXIBLE PROXIMAL DIAGNOSTIC Recall History of colon polyps Health Maintenance Due Date Last Done Comments Hepatitis C Screening 1963 Zoster Vaccines (1 of 2) 06/13/2012 04/18/2012 COVID-19 Vaccine (3 - Moderna risk series) 12/06/2020 11/08/2020, 10/08/2020 Depression Screening 04/15/2021 04/15/2020 Diabetic Eye Exam 06/21/2021 06/21/2020, , 10/21/2015 Colonoscopy 02/19/2022 02/19/2017, 05, 12/15/2013 Diabetic Foot Exam 07/10/2023 07/10/2022, 0 04/15/2020, 03/23/2019, Additional history exists HbA1c 05/07/2024 11/06/2023, 04/29, 11/21/2022, Additional history exists TSH 05/24/2024 05/24/2023, 1107/2021, 03/20/2021, Additional history exists Albumin/Creatinine Ratio 10/20/2024 [...] filedocumented as of this encounter Care Teams Fur Feeder Relationship Specialty Start Date End Date Enrico Mccauley MD 132 [facility] [place] [address] PCP - General Family Medicine 08/19/19 documented as of this encounter
--- OUTSIDE RECORDS SUMMARY | 2024-06-20 18:36 | External Medical Summary | Summary of Care ---
Author Name Unknown Organization [facility] Address [address] [facility] [address] Phone [phone] Care Team Providers Care Associate Professor Of Mathematics Name Role Phone Shana Hamlin MD Primary Care Provider [phone] [phone] Reason for Visit * Reason Comments eRx-Medication Refill Encounter Details Date Type Department Care Team (Late st Contact Info) Description 01/12/2024 Refill Family Practice [facility] 132 [facility] [place] [address] Shana Hamlin MD 132 [facility] [place] [address] Allergies Active Allergy Reactions Criticality Noted Date Comments Gianluca Inhibitors Cough 06/12/2016 Cat Dander 03/31/2020 Ragweed 02/16/2020 Per patient's he is allergic to all weeds, trees, grasses documented as of this encounter (statuses as of 01/13/2024) Medications Medication Sig Dispensed Refills Start Date End Date Status ASPIRIN 81 MG PO TABS one tablet daily Active Blood Glucose Monitoring Suppl (ShareMeisterUCH ULTRA SYSTEM) W/DEVICE KITIndications:Type 2 diabetes mellitus with hemoglobin A1c goal of less than 7.5% ([facility]) Use as directed 2 times a day. E11.9 1 Kit 6 Active Azelastine HCl 0.1 % nasal spray Administer 1 [place] into nostril 2 times a day. 30 [...] IN THE MORNING 90 Tablet 4 Active Ipratropium [place] 0.02 % Inhalation Solution (Atrovent) Inhale 2.5 mL via nebulizer in the morning and 2.5 mL at noon and 2.5 mL in the evening and 2.5 mL before bedtime. 75 mL 12 4 Active Tiotropium [place] Monohydrate 18 MCG Inhalation Capsule (Spiriva)Indication s:Severe [...] bedtime 240 mL 4 01/13/20 24 Discontinued Hospital, Clinic, or Other Facility Administered Medication Ordered Dose Route Frequency Start Date End Date Status omalizumab (XOLAIR) inj 150 mgIndications:Poorly controlled severe persistent asthma with acute exacerbation 150 mg SC [id number] 05/13/2020 Active omalizumab (XOLAIR) inj 150 mgIndications:Poorly controlled severe persistent asthma with acute exacerbation 150 mg SC [id number] 05/13/2020 Active documented as of this encounter (statuses as of 01/13/2024) Active Problems Problem Noted Date Diagnosed Date [...] as of this encounter (statuses as of 01/13/2024) Resolved Problems Problem Noted Date Diagnosed Date [...] as of this encounter (statuses as of 01/13/2024) Immunizations Name Administration Dates Next Due COVID-19 [...] Telephone Encounter - Shana Hamlin MD - 01/13/2024 8:01 AM EDTSigned Prescriptions: Disp Refills Sodium Chloride 3 % Inhalation Nebulizatio*240 mL 0 Sig: inhale contents of 1 vial via nebulizer every morning and before bedtime Authorizing Provider: SHANA HAMLIN * Telephone Encounter - Avani Murillo LPN - 01/13/2024 6:48 AM EDTPending Prescriptions: Disp Refills Sodium Chloride 3 % Inhalation Nebulizatio*240 mL 0 Sig: inhale contents of 1 vial via nebulizer every morning and before bedtime * Telephone Encounter - Avani Murillo LPN - 01/13/2024 6:48 AM EDT Did you pend patient's preferred [...] appointment Last date the medication was ordered: 12/09/23 Is this request for a controlled substance?No [...] 12/14/2019 11:27 AM * Telephone Encounter - GarrettZhang - 01/12/2024 1:46 PM EDTPending Prescriptions: Disp Refills Sodium Chloride 3 % Inhalation Nebulizatio*240 mL 0 Sig: inhalecontents of 1 vial via nebulizer every morning and before bedtime documented in this encounter Plan of Treatment Upcoming Encounters Date Type Department Care Team (Late st Contact Info) Description 02/07/2024 10:35 AM EDT Cardiac Studies Cardiac Studies, [address] [address] Scheduled Procedures Name Priority Associated [...] filedocumented as of this encounter Care Teams Associate Professor Of Mathematics Relationship Specialty Start Date End Date Shana Hamlin MD [address] [place] [address] PCP - General Family Medicine 08/19/19 documented as of this encounter
--- OUTSIDE RECORDS SUMMARY | 2024-06-20 18:36 | External Medical Summary | Summary of Care ---
Author Name Unknown Organization [facility] Address [address] [facility] [place] [address] Phone [phone] Care Team Providers Care Social Services Counselor Name Role Phone Enrico Mccauley MD Primary Care Provider [phone] [phone] Reason for Visit * Reason Onset Date Comments Hospital Follow-Up Hospital Follow-Up 01/10/2024 Encounter Details Date Type Department Care Team (Late st Contact Info) Description 01/10/2024 11:00 AM EDT Office Visit [facility] [address] [facility] [place] [address] Enrico Mccauley MD [address] [place] [address] Hospital discharge follow-up*; Severe persistent asthma dependent on systemic steroids; Neuromuscular respiratory weakness (HCC); PHILLIP (obstructive sleep apnea) Allergies Active Allergy Reactions Criticality Noted Date Comments Gianluca Inhibitors Cough 06/12/2016 Cat Dander 03/31/2020 Ragweed 02/16/2020 Per patient's he is allergic to all weeds, trees, grasses documented as of this encounter (statuses as of 01/10/2024) Medications Medication Sig Dispensed Refills Start Date End Date Status ASPIRIN 81 MG PO TABS one tablet daily Active Blood Glucose Monitoring Suppl ([employer] ULTRA SYSTEM) W/DEVICE KITIndications:Type 2 diabetes mellitus with hemoglobin A1c goal of less than 7.5% ([facility]) Use as directed 2 times a day. E11.9 1 Kit 07/27/2016 Active Azelastine HCl 0.1 % nasal spray Administer 1 [place] into nostril 2 times a day. 30 [...] THE MORNING 90 Tablet 11/01/2023 Active Ipratropium [place] 0.02 % Inhalation Solution (Atrovent) Inhale 2.5 mL via nebulizer in the morning and 2.5 mL at noon and 2.5 mL in the evening and 2.5 mL before bedtime. 75 mL 12 11/01/2023 Active Tiotropium [place] Monohydrate 18 MCG Inhalation Capsule (Spiriva)Indications :Severe persistent asthma dependent on systemic steroids INHALE 1 CAPSULE BY MOUTH ONCE DAILY VIA HANDIHALER . DO NOT SWALLOW 30 Capsule 5 11/07/2023 Active Empagliflozin 25 MG Oral Tablet (Jardiance)Indicatio ns:Type 2 diabetes mellitus with hemoglobin A1c goal of less than 8.0% ([facility]) Take 1 Tablet by mouth in the [...] asthma with acute exacerbation 150 mg SC [id number] 05/13/2020 Active omalizumab (XOLAIR) inj 150 mgIndications:Poorly controlled severe persistent asthma with acute exacerbation 150 mg SC [id number] 05/13/2020 Active documented as of this encounter (statuses as of 01/10/2024) Active Problems Problem Noted Date Diagnosed Date [...] as of this encounter (statuses as of 01/10/2024) Resolved Problems Problem Noted Date Diagnosed Date [...] as of this encounter (statuses as of 01/10/2024) Immunizations Name Administration Dates Next Due COVID-19 [...] Sign Reading Time Taken Comments Blood Pressure 134/82 01/10/2024 10:58 AM EDT Pulse 84 01/10/2024 10:58 AM EDT Temperature 36.4 C (97.6 F) 01/10/2024 10:58 AM E DT Respiratory Rate 18 01/10/2024 10:58 AM EDT Oxygen Saturation 93% 01/10/2024 10:58 AM EDT Inhaled Oxygen Concentration - - Weight - - Height - - Body Mass Index - - documented in this encounter Patient Instructions * Patient Instructions* Enrico Mccauley MD - 01/10/2024 11:17 AM EDT Taking Medicine Safely Medicine is given to help treat or prevent illness. But if you don't take it correctly, it might not help. It might even harm you. Your doctor or pharmacist can help you learn the right way to take your medicine. Listed below are some tips to help you take medicine safely. Safety Tips Have a routine for taking each medicine. Make it part of something you do each day, such as brushing your teeth or eating a meal. When you go to the hospital or your doctor's office, bring all your current medicines in their original boxes or bottles. If you can't do that, bring an up-to-date list of your medicines. Do not stop taking a prescription medicine unless your doctor tells you to. Doing so could make your condition worse. Do not share medicines. Let your doctor and pharmacist know of any allergies you have. Taking prescription medicines with alcohol, street drugs, herbs, supplements, or even some rnvj-ytv-sxaiewc medicines can be harmful. Talk to your doctor or pharmacist before using any of these things while taking a prescription medicine. When filling your prescriptions, try using the same pharmacy for all your medicines. If not, let the pharmacist know what medicines you are already on. Keep medicines out of the reach of children and pets. Do not use medicine that has or that doesn't look or smell right. Get rid of it properly. To find out the right way to get rid of medicine: Call your [facility] or [facility]'s household trash and recycling service and ask if a drug take-back program is available in your community. Call your local pharmacy and ask the right way to get rid of the medicine. Go to http://www.fda.gov/ForConsumers/ConsumerUpdates/bpm745410 to learn how to get rid of medicines safely. Using Generic Medicines Medicines have brand names and generic (chemical) names. When a medicine is first made, it is sold only under its brand name. Later, it can be made and sold as a generic. Generic medicines cost less than brand-name medicines and most work just as well. Most people can use the generic medicine instead of the brand-name medicine, unless their doctor says otherwise. 6463-1931 [facility], [address] [place] [address], [place] [address]. All rights reserved. This information is not intended as a substitute for professional medical care. Always follow your healthcare professional's instructions. Coping with Your Diagnosis of a Chronic Health Condition If you have a chronic health condition, you have a problem that may not go away over time. Heart disease, asthma, arthritis, and diabetes are just a few of the chronic conditions that exist. Right now, these conditions have no known cure. But you can take an active role in managing your health. Coping with Your Diagnosis If you've just learned about your health condition, you may be angry, depressed, or afraid. Or you might feel relieved just to know what's wrong. Even if you've known about your health problem for a while, adjusting to it can be hard. But learning about your condition can help you cope. Look for books at your local library. If you have access to a computer, check the Internet. Or contact a group that focuses on your specific problem. Accepting Change Change is hard for most people. Yet right now you may be facing many changes. What you eat or the way you work may change. Your moods, and even your symptoms, might vary from day to day. Although it isn't easy, learning to accept change can help you feel more in control. Taking Control Feeling you have control can make living with your condition easier. Discuss treatment options withyour health care provider. The more you know, the more active you can be in your care. Moving Forward You may wonder whether you will be able to do the things you've always done. That depends on your age, the condition you have, and your goals. To make the most of each day, try to build caring relationships, be active, and eat right. Also, do your best to keep a sense of humor. 4537-3646 [facility], [address] [place] [address]. All rights reserved. This information is not intended as a substitute for professional medical care. Always follow your healthcare professional's instructions. Taking an Active Role in Your Medicines Take the time to learn about your medicine. For instance, why are you taking it? What does it do? Work with your doctor or other health care providers to get the answers you need. Talk to your pharmacist about how to take each medicine, and ask for a fact sheet on each one. Ask Questions About Your Medicine What is the name of the medicine? Why do I need to take it? When should I take it? How should I take it: with water? with food? on an empty stomach? How much do I take? What do I do if I miss a dose? What side effects could it cause and which ones should I call the doctor about? Are there any foods or medicines I should avoid while taking this medicine? Keeping track of your medications? Name of medicine: Taken for: Dose: Time(s) to take it: Take an Active Role Fill all your prescriptions at the same pharmacy. This keeps your medicine history in one place. Talk to the pharmacist. Make sure you understand how to take each medicine. Ask for a fact sheet about each one. Tell your doctor and pharmacist about all the prescription and gjst-rfq-gdntzvv medicines you take.This includes vitamins and herbal remedies. Tell your doctor and pharmacist if you have any medical conditions or allergies to any medicine or food, or if you are or . Keep a list of all your medicines. Use the sample to the right as a guide for the type of information needed. 6537-2192 [facility], [address] [place] [address], [place] [address]. All rights reserved. This information is not intended as a substitute for professional medical care. Always follow your healthcare professional's instructions. documented in this encounter Progress Notes * Enrico Mccauley MD - 01/10/2024 11:17 AM EDT SUBJECTIVE: Alcides Sebastian is a 78 year old male. Chief Complaint Patient presents with Hospital Follow-Up Hospital Follow-Up Recent Admission: Patient was recently admitted to [facility]. The date of discharge was 01/03/24. Discharge report received and reviewed. HPI: Alcides is a pleasant gentleman with severe oxygen dependent COPD who comes in with his for a hospital discharge for COPD exacerbation due to influenza. He has follow up scheduled with pulmonology. He is back to his baseline today. 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 30 [...] mouth in the morning. 90 Tablet 2 Levalbuterol HCl 1.25 MG/3ML Inhalation Nebulization Solution (Xopenex) amLODIPine Besylate 5 MG Oral Tablet (Norvasc) [...] DAILY IN THE EVENING 90 Tablet 3 Losartan Potassium 25 MG [...] MINUTES BEFORE A MEAL 180 Capsule 1 Albuterol Sulfate HFA 108 (90 Base) MCG/ACT Inhalation Aerosol Solution Inhale 2 Puffs by mouth every 4 hours as needed for Wheezing. 18 g 1 predniSONE 5 MG Oral Tablet (Deltasone) TAKE ONE TABLET BY MOUTH IN THE MORNING 90 Tablet 0 Ipratropium [place] 0.02 % Inhalation Solution (Atrovent) Inhale 2.5 mL via nebulizer in the morning and 2.5 mL at noon and 2.5 mL in the evening and 2.5 mL before bedtime. 75 mL 12 Tiotropium [place] Monohydrate 18 MCG Inhalation Capsule (Spiriva) INHALE 1 CAPSULE BY MOUTH ONCE DAILY VIA HANDIHALER . DO NOT SWALLOW 30 Capsule 5 Empagliflozin 25 MG Oral Tablet (Jardiance) Take 1 Tablet by mouth in the morning. 90 Tablet 3 Sodium Chloride 3 % Inhalation Nebulization Solution inhale contents of 1 vial via nebulizer every morning and before bedtime 240 mL 0 glipiZIDE 5 MG Oral Tablet (Glucotrol) TAKE 1 TABLET BY MOUTH TWICE DAILY 30 minutes before a meal 180 Tablet 1 guaiFENesin ER 600 MG Oral Tablet Extended Release 12 Hour (Humibid LA) Take 1 Tablet by mouth 2 times a day as needed for Cough or Congestion. Blood Glucose Monitoring Suppl ([employer] ULTRA SYSTEM) W/DEVICE KIT Use as directed 2 times a day. E11.9 1 Kit 0 [employer] Glucose Meter Test Strips In Vitro Strip (Glucose Blood) Use up to four times daily to check blood glucose 200 Strip 3 Mometasone Furoate 50 MCG/ACT Nasal Suspension administer 2 sprays into each nostril daily 51 g 0 AdWhirl Delica Lancets 33G USE DIRECTED TWICE DAILY. USE UP TO FOUR TIMES A DAY DIRECTED. 100 Each 10 Breo Ellipta 200-25 MCG/ACT Inhalation Aerosol Powder Breath Activated (fluticasone furoate-vilanterol) INHALE 1 PUFF BY MOUTH EVERY MORNING 180 Blister Dosing Unit 3 Xolair 150 MG/ML Subcutaneous Solution Prefilled Syringe (Omalizumab) INJECT 2 SYRINGES UNDER THE SKIN EVERY 4 WEEKS 2 mL 6 Current Facility-Administered Medications Medication Dose Route Frequency Provider Last Rate Last Admin omalizumab (XOLAIR) inj 150 mg 150 mg Subcutaneous Q4 Weeks RhedAlyssasa Lana, [employer]SEM[employer]IVER 150 mg at 11/15/23 0930 omalizumab (XOLAIR) inj 150 mg 150 mg Subcutaneous Q4 Weeks Rhed, Asmita Lana, [employer]SEM[employer]IVER 150 mg at 11/15/23 0929 Current and discharge medications have been reconciled. Review of patient's allergies indicates: Allergen Reactions Gianluca Inhibitors Cough Cats [Cat Dander] Environmental [Ragweed] Per patient's he is allergic to all weeds, trees, grasses OBJECTIVE: BP 134/82 | Pulse 84 | Temp 36.4 C (97.6 F) (Tympanic) | Resp 18 | SpO2 93% PHYSICAL EXAM: Gen: nad, O2 via NC Lungs: + expiratory wheeze; no rhonchi Heart: rrr, no mrg Ext: no c/c/e ASSESSMENT: Hospital discharge follow-up (Primary) - DISCH MED RECON CUR MED LIS Severe persistent asthma dependent on systemic steroids Neuromuscular respiratory weakness (HCC) PHILLIP (obstructive sleep apnea) PLAN: Continue present medication(s): Follow up as needed. I spent a total of 10-19 minutes (exact time 18 mins) minutes on the date of service in preparation, delivery, and documentation of the care provided to Alcides Sebastian excluding any time spent in performance of separately billed services. Enrico Mccauley MD documented in this encounter Nursing Notes * Avani Adams LPN - 01/10/2024 10:58 AM EDT The patient has been properly identified by confirmation of name and date of . Chief Complaint Patient presents with Hospital Follow-Up documented in this encounter Plan of Treatment Upcoming Encounters Date Type Department Care Team (Late st Contact Info) Description 02/07/2024 10:35 AM EDT Cardiac Studies Cardiac Studies, [address] [address] Scheduled Procedures Name Priority Associated Diagnoses Date/Ti [...] as of this encounter Visit Diagnoses Diagnosis Hospital discharge follow-up- Primary Other follow-up examination Severe persistent asthma dependent on systemic steroids Neuromuscular respiratory weakness (HCC) Other diseases of respiratory system, not elsewhere classified PHILLIP (obstructive sleep apnea) Obstructive sleep apnea (adult) (pediatric) documented in this encounter Care Teams Social Services Counselor Relationship Specialty Start Date End Date Enrico Mccauley MD [address] [place] [address] PCP - General Family Medicine 08/19/19 documented as of this encounter"
--- OUTSIDE RECORDS SUMMARY | 2024-06-20 18:36 | External Medical Summary | Summary of Care ---
Author Name Unknown Organization [facility] Address [address] [facility] [address] Phone [phone] Care Team Providers Care Estimation Manager Name Role Phone Enrico Mccauley MD Primary Care Provider [phone] Reason for Visit * Reason Onset Date Comments Advice 01/07/2024 Encounter Details Date Type Department Care Team (Late st Contact Info) Description 01/07/2024 Telephone Pulmonary Medicine, [facility] 132 [facility] [place] [address] Scot Nunez MD [address] [facility] [place] [id number] Advice Allergies Active Allergy Reactions Criticality Noted Date Comments Gianluca Inhibitors Cough 06/12/2016 Cat Dander 03/31/2020 Ragweed 02/16/2020 Per patient's he is allergic to all weeds, trees, grasses documented as of this encounter (statuses as of 01/07/2024) Medications Medication Sig Dispensed Refills Start Date End Date Status ASPIRIN 81 MG PO TABS one tablet daily Active Blood Glucose Monitoring Suppl ([employer] ULTRA SYSTEM) W/DEVICE KITIndications:Type 2 diabetes mellitus with hemoglobin A1c goal of less than 7.5% ([facility]) Use as directed 2 times a day. E11.9 1 Kit 07/27/2016 Active Azelastine HCl 0.1 % nasal spray Administer 1 [place] into nostril 2 times a day. 30 [...] hemoglobin A1c goal of less than 8.0% ([facility]) Use up to four times [...] hemoglobin A1c goal of less than 7.5% ([facility]) USE DIRECTED TWICE DAILY. USE [...] THE MORNING 90 Tablet 11/01/2023 Active Ipratropium [place] 0.02 % Inhalation Solution (Atrovent) Inhale 2.5 mL via nebulizer in the morning and 2.5 mL at noon and 2.5 mL in the evening and 2.5 mL before bedtime. 75 mL 12 11/01/2023 Active Tiotropium [place] Monohydrate 18 MCG Inhalation Capsule (Spiriva)Indications :Severe [...] asthma with acute exacerbation 150 mg SC [id number] 05/13/2020 Active omalizumab (XOLAIR) inj 150 mgIndications:Poorly controlled severe persistent asthma with acute exacerbation 150 mg SC [id number] 05/13/2020 Active documented as of this encounter [...] 11:00 AM EDT Office Visit Family Practice [facility] [address] [place] [address] Enrico Mccauley MD [address] [place] [address] 02/07/2024 10:35 AM EDT Cardiac Studies Cardiac Studies, [facility] [address] [place] Scheduled Procedures Name Priority Associated Diagnoses Date/Ti [...] filedocumented as of this encounter Care Teams Estimation Manager Relationship Specialty Start Date End Date Enrico Mccauley MD [address] [place] [address] PCP - General Family Medicine 08/19/19 documented as of this encounter
--- OUTSIDE RECORDS SUMMARY | 2024-06-20 18:36 | External Medical Summary | Summary of Care ---
Author Name Unknown Organization [facility] Address [address] [facility] [place] [address] Phone [phone] Care Team Providers Care Material Handling Supervisor Name Role Phone Enrico Mccauley MD Primary Care Provider [phone] Reason for Visit * Reason Onset Date Comments Advice 01/15/2024 Re: oxygen sats Encounter Details Date Type Department Care Team (Late st Contact Info) Description 01/15/2024 Telephone Pulmonary Medicine, [facility] 132 [facility] [place] [address] Scot Nunez [...] tablet daily Active Blood Glucose Monitoring Suppl (Ignit[employer] ULTRA SYSTEM) W/DEVICE KITIndications:Type 2 diabetes mellitus with hemoglobin A1c goal of less than 7.5% ([facility]) Use as directed 2 times a day. E11.9 1 Kit 07/27/2016 Active Azelastine HCl 0.1 % nasal spray Administer 1 [place] into nostril 2 times a day. 30 [...] THE MORNING 90 Tablet 11/01/2023 Active Ipratropium [place] 0.02 % Inhalation Solution (Atrovent) Inhale 2.5 mL via nebulizer in the morning and 2.5 mL at noon and 2.5 mL in the evening and 2.5 mL before bedtime. 75 mL 12 11/01/2023 Active Tiotropium [place] Monohydrate 18 MCG Inhalation Capsule (Spiriva)Indications :Severe [...] asthma with acute exacerbation 150 mg SC [id number] 05/13/2020 Active omalizumab (XOLAIR) inj 150 mgIndications:Poorly controlled severe persistent asthma with acute exacerbation 150 mg SC [id number] 05/13/2020 Active documented as of this encounter [...] 10:35 AM EDT Cardiac Studies Cardiac Studies, [address] [place] [address] Scheduled Procedures Name Priority Associated Diagnoses Date/Ti [...] filedocumented as of this encounter Care Teams Material Handling Supervisor Relationship Specialty Start Date End Date Enrico Mccauley MD [address] [place] [address] PCP - General Family Medicine 08/19/19 documented as of this encounter
--- OUTSIDE RECORDS SUMMARY | 2024-06-20 18:36 | External Medical Summary | Summary of Care ---
Author Name Unknown Organization [facility] Address [address] [facility] [address] Phone [phone] Care Team Providers Care Cook Vacuum Kettle Name Role Phone Enrico Mccauley MD Primary Care Provider [phone] Reason for Visit * Reason Onset Date Comments Advice 01/07/2024 Encounter Details Date Type Department Care Team (Late st Contact Info) Description 01/07/2024 Telephone Pulmonary Medicine, [facility] 132 [facility] [place] [address] Scot Nunez MD [address] [facility] [place] [id number] Advice Allergies Active Allergy Reactions Criticality Noted Date Comments Gianluca Inhibitors Cough 06/12/2016 Cat Dander 03/31/2020 Ragweed 02/16/2020 Per patient's he is allergic to all weeds, trees, grasses documented as of this encounter (statuses as of 01/07/2024) Medications Medication Sig Dispensed Refills Start Date End Date Status ASPIRIN 81 MG PO TABS one tablet daily Active Blood Glucose Monitoring Suppl (Ad.IQ ULTRA SYSTEM) W/DEVICE KITIndications:Type 2 diabetes mellitus with hemoglobin A1c goal of less than 7.5% ([facility]) Use as directed 2 times a day. E11.9 1 Kit 07/27/2016 Active Azelastine HCl 0.1 % nasal spray Administer 1 [place] into nostril 2 times a day. 30 [...] goal of less than 8.0% ([facility]) Use up to four times daily to [...] of less than 7.5% ([facility]) USE DIRECTED TWICE DAILY. USE UP TO [...] THE MORNING 90 Tablet 11/01/2023 Active Ipratropium [place] 0.02 % Inhalation Solution (Atrovent) Inhale 2.5 mL via nebulizer in the morning and 2.5 mL at noon and 2.5 mL in the evening and 2.5 mL before bedtime. 75 mL 12 11/01/2023 Active Tiotropium [place] Monohydrate 18 MCG Inhalation Capsule (Spiriva)Indications :Severe [...] asthma with acute exacerbation 150 mg SC [id number] 05/13/2020 Active omalizumab (XOLAIR) inj 150 mgIndications:Poorly controlled severe persistent asthma with acute exacerbation 150 mg SC [id number] 05/13/2020 Active documented as of this encounter [...] 11:00 AM EDT Office Visit Family Practice [facility] [address] [place] [address] Enrico Mccauley MD [address] [place] [address] 02/07/2024 10:35 AM EDT Cardiac Studies Cardiac Studies, [facility] [address] [place] Scheduled Procedures Name Priority [...] filedocumented as of this encounter Care Teams Cook Vacuum Kettle Relationship Specialty Start Date End Date Enrico Mccauley MD [address] [place] [address] PCP - General Family Medicine 08/19/19 documented as of this encounter
--- OUTSIDE RECORDS SUMMARY | 2024-06-20 18:36 | External Medical Summary | Summary of Care ---
Author Name Unknown Organization [facility] Address [address] [facility] [address] Phone [phone] Care Team Providers Care Suction Plate Roller Hand Name Role Phone Enrico Mccauley MD Primary Care Provider [phone] Reason for Visit * Reason Onset Date Comments Advice 01/15/2024 Encounter Details Date Type Department Care Team (Late st Contact Info) Description 01/15/2024 Telephone Pulmonary Medicine, [facility] [address] [facility] [place] [address] Scot Nunez MD [address] [facility] [place] [id number] Advice Allergies Active Allergy Reactions Criticality Noted Date Comments Gianluca Inhibitors Cough 06/12/2016 Cat Dander 03/31/2020 Ragweed 02/16/2020 Per patient's he is allergic to all weeds, trees, grasses documented as of this encounter (statuses as of 01/16/2024) Medications Medication Sig Dispensed Refills Start Date End Date Status ASPIRIN 81 MG PO TABS one tablet daily Active Blood Glucose Monitoring Suppl (CityTherapy ULTRA SYSTEM) W/DEVICE KITIndications:Type 2 diabetes mellitus with hemoglobin A1c goal of less than 7.5% ([facility]) Use as directed 2 times a day. E11.9 1 Kit 07/27/2016 Active Azelastine HCl 0.1 % nasal spray Administer 1 Bypro into nostril 2 times a day. 30 [...] less than 7.5% ([facility]) USE DIRECTED TWICE DAILY. USE UP TO [...] MORNING 90 Tablet 11/01/2023 Active Ipratropium [place] 0.02 % Inhalation Solution (Atrovent) Inhale 2.5 mL via nebulizer in the morning and 2.5 mL at noon and 2.5 mL in the evening and 2.5 mL before bedtime. 75 mL 12 11/01/2023 Active Tiotropium [place] Monohydrate 18 MCG Inhalation Capsule (Spiriva)Indications :Severe [...] asthma with acute exacerbation 150 mg SC [id number] 05/13/2020 Active omalizumab (XOLAIR) inj 150 mgIndications:Poorly controlled severe persistent asthma with acute exacerbation 150 mg SC [id number] 05/13/2020 Active documented as of this encounter [...] Mild aortic stenosis 05/31/2020 Migraine variant 02/17/2020 PIHLLIP (obstructive sleep apnea) 05/18/2019 Periodic limb movement [...] 10:35 AM EDT Cardiac Studies Cardiac Studies, [facility] [address] [place] [id number] Scheduled Procedures Name Priority Associated Diagnoses Date/Ti [...] filedocumented as of this encounter Care Teams Suction Plate Roller Hand Relationship Specialty Start Date End Date Enrico Mccauley MD [address] [place] [address] PCP - General Family Medicine 08/19/19 documented as of this encounter
--- OUTSIDE RECORDS SUMMARY | 2024-06-20 18:36 | External Medical Summary | Summary of Care ---
Author Name Unknown Organization [facility] Address [address] [facility] [address] Phone [phone] Care Team Providers Care Customer Counter Representative Name Role Phone Enrico Mccauley MD Primary Care Provider [phone] Reason for Visit * Reason Onset Date Comments Advice 01/07/2024 Encounter Details Date Type Department Care Team (Late st Contact Info) Description 01/07/2024 Telephone Pulmonary Medicine, [facility] [address] [facility] [place] [address] Scot Nunez MD [address] [facility] [place] [id number] Advice Allergies Active Allergy Reactions Criticality Noted Date Comments Gianluca Inhibitors Cough 06/12/2016 Cat Dander 03/31/2020 Ragweed 02/16/2020 Per patient's he is allergic to all weeds, trees, grasses documented as of this encounter (statuses as of 01/08/2024) Medications Medication Sig Dispensed Refills Start Date End Date Status ASPIRIN 81 MG PO TABS one tablet daily Active Blood Glucose Monitoring Suppl (Stem ULTRA SYSTEM) W/DEVICE KITIndications:Type 2 diabetes mellitus with hemoglobin A1c goal of less than 7.5% ([facility]) Use as directed 2 times a day. E11.9 1 Kit 07/27/2016 Active Azelastine HCl 0.1 % nasal spray Administer 1 [place] into nostril 2 times a day. 30 [...] THE MORNING 90 Tablet 11/01/2023 Active Ipratropium [place] 0.02 % Inhalation Solution (Atrovent) Inhale 2.5 mL via nebulizer in the morning and 2.5 mL at noon and 2.5 mL in the evening and 2.5 mL before bedtime. 75 mL 12 11/01/2023 Active Tiotropium [place] Monohydrate 18 MCG Inhalation Capsule (Spiriva)Indications :Severe [...] as needed for Cough or Congestion. Active Doxycycline Hyclate 100 MG Oral Capsule Take 1 Capsule by mouth in the morning and 1 Capsule before bedtime. 01/03/2024 Hospital, Clinic, or Other Facility Administered Medication Ordered Dose Route Frequency Start Date End Date Status omalizumab (XOLAIR) inj 150 mgIndications:Poorly controlled severe persistent asthma with acute exacerbation 150 mg SC [id number] 05/13/2020 Active omalizumab (XOLAIR) inj 150 mgIndications:Poorly controlled severe persistent asthma with acute exacerbation 150 mg SC [id number] 05/13/2020 Active documented as of this encounter (statuses as of 01/08/2024) Active Problems Problem Noted Date Diagnosed Date [...] as of this encounter (statuses as of 01/08/2024) Resolved Problems Problem Noted Date Diagnosed Date [...] as of this encounter (statuses as of 01/08/2024) Immunizations Name Administration Dates Next Due COVID-19 [...] 11:00 AM EDT Office Visit Family Practice [facility] [address] [employer] [place] [address] Enrico Mccauley MD [address] [employer] [place] [address] 02/07/2024 10:35 AM EDT Cardiac Studies Cardiac Studies, [facility] [address] [place] [address] Scheduled Procedures Name Priority Associated Diagnoses Date/Ti [...] filedocumented as of this encounter Care Teams Customer Counter Representative Relationship Specialty Start Date End Date Enrico Mccauley MD [address] [place] [address] PCP - General Family Medicine 08/19/19 documented as of this encounter
--- OUTSIDE RECORDS SUMMARY | 2024-06-20 18:36 | External Medical Summary | Summary of Care ---
Author Name Unknown Organization [facility] Address [address] [facility] [address] Phone [phone] Care Team Providers Care Interior Design Project Manager Name Role Phone Enrico Mccauley MD Primary Care Provider [phone] Reason for Visit * Reason Onset Date Comments Advice 01/07/2024 Encounter Details Date Type Department Care Team (Late st Contact Info) Description 01/07/2024 Telephone Pulmonary Medicine, [facility] [address] [facility] [place] [address] Scot Nunez MD [address] [facility] [place] [phone] Advice Allergies Active Allergy Reactions Criticality Noted Date Comments Gianluca Inhibitors Cough 06/12/2016 Cat Dander 03/31/2020 Ragweed 02/16/2020 Per patient's he is allergic to all weeds, trees, grasses documented as of this encounter (statuses as of 01/07/2024) Medications Medication Sig Dispensed Refills Start Date End Date Status ASPIRIN 81 MG PO TABS one tablet daily Active Blood Glucose Monitoring Suppl (Sympoz (dba Craftsy) ULTRA SYSTEM) W/DEVICE KITIndications:Type 2 diabetes mellitus with hemoglobin A1c goal of less than 7.5% ([facility]) Use as directed 2 times a day. E11.9 1 Kit 07/27/2016 Active Azelastine HCl 0.1 % nasal spray Administer 1 [place] into nostril 2 times a day. 30 [...] THE MORNING 90 Tablet 11/01/2023 Active Ipratropium [place] 0.02 % Inhalation Solution (Atrovent) Inhale 2.5 mL via nebulizer in the morning and 2.5 mL at noon and 2.5 mL in the evening and 2.5 mL before bedtime. 75 mL 12 11/01/2023 Active Tiotropium [place] Monohydrate 18 MCG Inhalation Capsule (Spiriva)Indications :Severe [...] asthma with acute exacerbation 150 mg SC [id number] 05/13/2020 Active omalizumab (XOLAIR) inj 150 mgIndications:Poorly controlled severe persistent asthma with acute exacerbation 150 mg SC [id number] 05/13/2020 Active documented as of this encounter [...] 11:00 AM EDT Office Visit Family Practice [facility] [address] [place] [address] Enrico Mccauley MD [address] [place] [address] 02/07/2024 10:35 AM EDT Cardiac Studies Cardiac Studies, [facility] [address] [place] [address] Scheduled Procedures Name Priority Associated Diagnoses Date/Ti [...] filedocumented as of this encounter Care Teams Interior Design Project Manager Relationship Specialty Start Date End Date Enrico Mccauley MD [address] [place] [address] PCP - General Family Medicine 08/19/19 documented as of this encounter
--- OUTSIDE RECORDS SUMMARY | 2024-06-20 18:37 | External Medical Summary | Summary of Care ---
Author Name Unknown Organization [facility] Address [address] [facility] [place] [address] Phone [phone] Care Team Providers Care Aircraft Engine Dismantler Name Role Phone Enrico Mccauley MD Primary Care Provider [phone] Reason for Visit * Reason Onset Date Comments Hospital Follow-Up 01/06/2024 [facility] 01/02 Encounter Details Date Type Department Care Team (Late st Contact Info) Description 01/06/2024 Telephone Ancillary [facility] [address] [facility] [place] [address] Bhavya Hodge, RN Hospital Follow-Up ([facility] 01/02) Allergies Active Allergy Reactions Criticality Noted Date Comments Gianluca Inhibitors Cough 06/12/2016 Cat Dander 03/31/2020 Ragweed 02/16/2020 Per patient's he is allergic to all weeds, trees, grasses documented as of this encounter (statuses as of 01/06/2024) Medications Medication Sig Dispensed Refills Start Date End Date Status ASPIRIN 81 MG PO TABS one tablet daily Active Blood Glucose Monitoring Suppl (NextivityUCH ULTRA SYSTEM) W/DEVICE KITIndications:Type 2 diabetes mellitus with hemoglobin A1c goal of less than 7.5% ([facility]) Use as directed 2 times a day. E11.9 1 Kit 07/27/2016 Active Azelastine HCl 0.1 % nasal spray Administer 1 [place] into nostril 2 times a day. 30 [...] hemoglobin A1c goal of less than 8.0% ([facility]) Use up to four times daily [...] THE MORNING 90 Tablet 11/01/2023 Active Ipratropium [place] 0.02 % Inhalation Solution (Atrovent) Inhale 2.5 mL via nebulizer in the morning and 2.5 mL at noon and 2.5 mL in the evening and 2.5 mL before bedtime. 75 mL 12 11/01/2023 Active Tiotropium [place] Monohydrate 18 MCG Inhalation Capsule (Spiriva)Indication s:Severe persistent asthma dependent on systemic steroids INHALE 1 CAPSULE BY MOUTH ONCE DAILY VIA HANDIHALER . DO NOT SWALLOW 30 Capsule 5 11/07/2023 Active Empagliflozin 25 MG Oral Tablet (Jardiance)Indicati ons:Type 2 diabetes mellitus with hemoglobin A1c goal of less than 8.0% ([facility]) Take 1 Tablet by mouth in [...] morning and 1 Capsule before bedtime. 01/03/2024 4 Active guaiFENesin ER 600 MG Oral Tablet Extended Release 12 Hour (Humibid [place]) Take 1 Tablet by mouth 2 times a day as needed for Cough or Congestion. Active Doxycycline Hyclate 100 MG Oral Capsule Take 1 Capsule by mouth in the morning and 1 Capsule before bedtime. Do all this for 10 days. Until gone.. 20 Capsule 09/27/2023 4 Discontinu ed(Medicat ion List Clean Up) Hospital, Clinic, or Other Facility Administered Medication Ordered Dose Route Frequency Start Date End Date Status omalizumab (XOLAIR) inj 150 mgIndications:Poorly controlled severe persistent asthma with acute exacerbation 150 mg SC [id number] 05/13/2020 Active omalizumab (XOLAIR) inj 150 mgIndications:Poorly controlled severe persistent asthma with acute exacerbation 150 mg SC [id number] 05/13/2020 Active documented as of this encounter (statuses as of 01/06/2024) Active Problems Problem Noted Date Diagnosed Date [...] as of this encounter (statuses as of 01/06/2024) Resolved Problems Problem Noted Date Diagnosed Date [...] as of this encounter (statuses as of 01/06/2024) Immunizations Name Administration Dates Next Due COVID-19 [...] encounter Miscellaneous Notes * Telephone Encounter - Bhavya Hodge RN - 01/06/2024 11:19 AM EDT Transitions of Care Note Reason for Referral:Recent Admission Phone visit for follow up: NUBIA Admitted to: [facility], Date: 12/29 Discharged to: home, Date: 01/02 Diagnosis driving hospitalization: Acute hypoxic respiratory failure with hypoxia due to influenza infection Source/Contact: Patient SUBJECTIVE Consent: Verbal consent for review of hospital discharge: Yes REVIEW OF SYSTEMS Patient/Other Reports: Current patient/caregiver problems or concerns: none at this time CV: Denies problems Pulmonary: Denies problems Oxygen- wearing 2L NC without issue Chills/Sweats/Fever:Denies chills/sweats Denies fever Appetite:Denies problems such as nausea, vomiting, burning, decreased appetite Current diet: as before Bowel: denies problems Bladder: denies problems Wound (If applicable): N/A Pain:Denies Sleep:Denies problems FUNCTIONAL STATUS: ADL'S: Needs Assistance With:N/A as pt is independent IADL'S: Needs Assistance With:N/A as pt is independent Cognitive and Mental Health: alert and oriented x 2, short-term memory loss, and able to communicate, understand some instructions, process some information MEDICATION RECONCILIATION Medications: Discharge med list reviewed with patient or caregiver New medication(s) filled since hospitalization- Doxycycline, Mucinex Reports all medications taken as prescribed. Denies side effects OBJECTIVE ASSESSMENT Medication Risk Assessment: No risks identified Did patient fail outpatient treatment? No Discharge instructions available for review? Yes PLAN Symptom Monitoring Interventions:Member/caregiver education - signs and symptoms to contact PrimaryCare (DO NOT DELETE-[place] symptoms patient is to report to PCP) 1. SOB 2. Worsening confusion 3. Chest pain Aluminum Siding InstallerWeb Designer Developer of Care interventions/Action Plan: Medication reconciliation and 5 - 7 day follow-up with PCP in place - Date: 01/09 Educated on role of NUBIA completed with patient/caregiver. Educated patient/caregiver on patient right to have input on NUBIA plan of care. Verification of Home Health/DME if indicated: YES [employer] Identified Care Gaps: Yes Care Gaps closed this call: Appointment made or confirmed, Services in place, and Transition of Care follow-up communication Re-evaluation of Plan of Care and progress towards goals achievement: Patient education this visit: Verbal, as above Plan to follow-up as previously scheduled, instructed to call Primary Care Provider with change in symptoms or as needed before next follow-up, discharge needs met, verbalizes understanding and agrees with plan. Bhavya Hodge RN documented in this encounter Plan of Treatment Upcoming Encounters Date Type Department Care Team (Late st Contact Info) Description 01/10/2024 11:00 AM EDT Office Visit Family Practice [facility] [address] [place] [address] Enrico Mccauley MD [address] [place] [address] 02/07/2024 10:35 AM EDT Cardiac Studies Cardiac Studies, [facility] [address] [place] [address] Scheduled Procedures Name Priority Associated Diagnoses Date/Ti [...] filedocumented as of this encounter Care Teams Aircraft Engine Dismantler Relationship Specialty Start Date End Date Enrico Mccauley MD [address] [place] [address] PCP - General Family Medicine 08/19/19 documented as of this encounter
[2024-06-20] MEDS: DOXAZosin MESYLATE TAB 2 MG TAB PO SCH (20:33)
[2024-06-20] MEDS: REMDESIVIR 100 MG in SODIUM CHLORIDE 0.9% 230 ML IV SCH (20:38)
[2024-06-21 06:57] LABS: Hematocrit (blood only) 42.6 % (42.0-52.0); Hemoglobin 14.4 g/dl (14.0-18.0); Immature Granulocytes # (auto) 0.03 K/uL (0.01-0.20); Immature Granulocytes % (auto) 0.6 %; Lymphocytes # (auto) 0.21 K/uL (1.20-3.40); Lymphocytes % (auto) 4.5 %; Mean Corpuscular Hemoglobin 28.5 pg (25.0-34.0); Mean Corpuscular Hgb Conc 33.8 g/dL (32.0-36.0); Mean Corpuscular Volume 84.2 fL (80.0-100.0); Mean Platelet Volume 9.8 fL (9.4-12.4); Monocytes # (auto) 0.29 K/uL (0.11-0.59); Monocytes % (auto) 6.3 %; Neutrophils # (auto) 4.09 K/uL (1.40-6.50); Neutrophils % (auto) 88.6 %; Platelet Count 225 K/uL (130-400); RDW Coefficient of Variation 14.8 % (11.5-14.5); RDW Standard Deviation 45.2 fL (36.4-46.3); Red Blood Count 5.06 M/uL (4.70-6.10); White Blood Count 4.62 K/ul (4.8-10.8)
[2024-06-21 07:16] LABS: BUN Creatinine Ratio 26.1 (10-20); C Reactive Protein 11.44 mg/dl (0-0.5); Calcium 8.7 mg/dl (8.6-10.3); Magnesium 2.2 mg/dl (1.7-2.4); Phosphorus 3.2 mg/dl (2.5-4.9)
[2024-06-21 07:27] LABS: Troponin I High Sensitivity 629.4 pg/ml (0-20)
--- NOTE | 2024-06-21 07:45 | Pulmonology Progress Note ---
Date of Service June 21, 2024 Assessment & Plan (1) Multifocal pneumonia: (2) COVID-19: (3) Acute hypoxemic respiratory failure: (4) Bronchiectasis: (5) Asthma, moderate persistent: Plan CTA chest 06/19/2024 personally reviewed: Diffuse groundglass opacities appreciated bilaterally upper and lower lobes Right upper lobe granuloma Elevated right hemidiaphragm with dependent ectasis Minimal cylindrical bronchiectasis bilateral lower lobes more on the left side No significant mediastinal lymphadenopathy Spirometry 08/05/2019 personally reviewed: Nonspecific spirometry with no obstruction FVC 2.27 L 67%, FEV1 1.95 to 73%, FEV1/FVC 86% --Acute hypoxic respiratory failure Secondary to multilobar COVID-19 pneumonia On Breo, Spiriva, Arnuity at home. He is also on 5 mg prednisone on a daily basis On Xolair as well from windows server architect Respiratory bio fire positive for COVID-19 on 06/20/2024 Procalcitonin 0.04 CRP 16 --Bronchiectasis Bilateral lower lobes On the long-term patient will benefit from upper airway clearance technique with hypertonic saline, flutter valve as well as Mucinex --PHILLIP Polysomnography 05/06/2019: AHI 11.2, severe PLMD Unable to tolerate CPAP --Chronic prednisone use 5 mg on a daily basis currently Plan: DC Solu-Medrol, give dexamethasone 10 mg twice daily for at least 5 days followed by 10 mg daily for 5 days Pantoprazole Continue with O2 supplementation to keep oxygen saturation between 90-92%. Awake proning will be helpful Continue with incentive spirometry Continue with flutter valve. Recommend patient to be kept euvolemic to negative balance after initial fluid resuscitation Patient did use CPAP overnight, encouraged to continue with CPAP whenever he is sleeping and whenever he is napping. Case was discussed with RN and primary team No further recommendation from pulmonary perspective, will sign off Please call directly with any questions Please note the above document was generated using voice recognition software. It may contain grammatical, syntax or spelling errors.Any formal questions or concerns about the content, text or information contained within the body of this dictation should be directly addressed to the provider for clarification. Admission and Anticipated Discharge Date Admission Date: June 19, 2024 Subjective Patient seen and examined at bedside. No acute distress, no adverse events overnight He did use his CPAP for approximately 4 hours overnight He tolerated well He was saturating 93-94% on 45 L, 75% FiO2, I went down to 70 L Patient's was also in the room. Overall he says that he feels almost the same to maybe little better Occasional cough with clear phlegm. Denies any hemoptysis Denies any chest congestion No headache or blurry vision Appetite is fair Review of Systems 2 Review of Systems: All systems reviewed & are unremarkable except as noted in Subjective Physical Exam 2 Physical Exam: Constitutional: No acute distress HEENT: EOMI, PERRLA Respiratory system: Decreased air entry bilaterally, no rhonchi, positive crackles bilateral lower lobes, no clear wheeze CVS: S1-S2 positive, no murmurs or gallops, distant heart sounds, tachycardia Abdomen: Soft, nontender, nondistended, positive bowel sounds x4 Extremities: +2 pulses bilaterally radialis/ dorsalis pedis, no cyanosis, no edema Neuro: Awake alert oriented x3 Psych: Normal mood and affect G/U: No Abad Skin: no rashes, warm and dry Lymphatic: no cervical or axillary lymphadenopathy Results & Data Results & Data Vital Signs (Past 12 Hours) Vital Signs Temp Pulse Pulse Resp BP Pulse Ox O2 Del Method 06/21/24 07:32 36.8 C 89 20 169/78 H 88 L High Flow Nasal Cannula 06/21/24 07:27 92 H 24 90 High Flow Nasal Cannula 06/21/24 03:00 91 High Flow Nasal Cannula 06/21/24 02:55 36.5 C 93 H 22 148/84 H 88 L High Flow Nasal Cannula 06/21/24 01:56 120 H 26 H 88 L High Flow Nasal Cannula 06/20/24 23:28 102 H 29 H 94 06/20/24 23:00 108 H 06/20/24 22:59 36.5 C 83 22 147/78 H 89 L High Flow Nasal Cannula 06/20/24 22:35 BiPAP, High Flow Nasal Cannula 06/20/24 21:12 99 H 26 H 96 O2 Flow Rate FiO2 06/21/24 07:32 06/21/24 07:27 45 80 06/21/24 03:00 45 70 06/21/24 02:55 06/21/24 01:56 45 70 06/20/24 23:28 70 06/20/24 23:00 06/20/24 22:59 06/20/24 22:35 06/20/24 21:12 70 Laboratory Results 06/21/24 06:38 06/21/24 06:38 PG Care Time/CCT Total # of Minutes Spent Total Time Spent with Patient: Total time spent is greater than 50% in coordination of care (as documented) at patient's floor/unit and/or counseling patient: Coding Level of Care Code 01796 SUB INP/OBS CARE 3/50MIN Diagnoses Multifocal pneumonia J18.9 COVID-19 U07.1 Acute hypoxemic respiratory failure J96.01 Bronchiectasis J47.9 Asthma, moderate persistent J45.40
--- NOTE | 2024-06-21 08:17 | Hospitalist Progress Note ---
Date of Service June 21, 2024 Assessment & Plan (1) Acute hypoxemic respiratory failure: Plan: 78-year-old male with past medical history significant for type 2 diabetes, hypothyroidism, hyperlipidemia, obstructive sleep apnea noncompliant with CPAP, severe persistent asthma dependent on systemic steroids, restrictive lung disease, neuromuscular respiratory weakness, chronic heart failure with preserved ejection fraction, hypertension, mild aortic stenosis, GERD, BPH, migraine variant, periodic Limb movement disorder, who lives at home with his comes because of shortness of breath. Patient is getting treated for pneumonia with Doxy and prednisone taper for last few days. As per he is sick for last 1 week. He is on oxygen 2 L at home. But since today morning he was getting more short of breath. Has mild cough. No fevers. Has some headache. Appetite is okay. No nausea ,vomiting or diarrhea. No abdominal pain. His oxygen was bumped to 2.5 L but still he was saturating only mid 80s while resting and while ambulating oxygen saturation dropping to 70s. In the ER is requiring high flow oxygen. Currently resting comfortably. Somewhat hard of hearing. helped with H&P. Patient denies any chest pain. Vision is okay. No runny nose or sore throat. Normal micturition. Acute hypoxemic respiratory failure Multifocal pneumonia COVID Asthma exacerbation Requiring high flow oxygen VBG obtained CTA chest - negative for PE 1. Accounting for limitations with extensive respiratory artifact, there is no definite evidence for large/central pulmonary embolism. The majority of the subsegmental and distal pulmonary artery segments are of nondiagnostic quality. 2. Extensive patchy confluent irregular ground-glass opacities now identified diffusely throughout the lungs, most prominent in the right lung apex. The primary consideration is pneumonia, to include atypical bacterial and viral etiologies. No pleural effusion or pneumothorax. Pulmonary medicine consulted - recommend to DC cefepime, vanco, MRSA swab negat., procal negat. DC Solu-Medrol, give dexamethasone 10 mg twice daily for at least 5 days follo wed by 10 mg daily for 5 days Pantoprazole Continue with O2 supplementation to keep oxygen saturation between 90-92%. Awake proning will be helpful Continue with incentive spirometry Continue with flutter valve. Recommend patient to be kept euvolemic to negative balance after initial fluid resuscitation Encouraged to continue with CPAP whenever he is sleeping and whenever he is napping. COVID COVID precautions Remdesivir and follow remdesivir labs Steroids -> dexamethasone as above, per pulmonary medicine CRP 16 -> 11 Close monitor Multifocal pneumonia Follow CT chest On Vanco and cefepime Complete p.o. doxycycline started as outpatient Follow the response Asthma (steroid dependent)exacerbation from above Restrictive lung disease Neuromuscular respiratory weakness DuoNebs ATC and as needed Hypertonic saline neb twice daily IV Solu-Medrol 40 mg 3 times daily-> switched to dexamethasone Antibiotics as above -> cont. w/ doxy Currently on high flow Continue home inhalers Hold home p.o. prednisone while getting IV steroids Pulmonary consulted Obstructive sleep apnea non compliant with CPAP On home oxygen Currently on high flow try cpap tonight Elevated lactic acid Mostly from respiratory distress Trending down Will follow repeat levels Elevated troponin troponin this AM 788 Echo obtained and reviewed results read by cardiology cardiology consulted, likely demand ischemia Chronic heart failure with preserved infection Mild aortic stenosis Monitor for volume overload Type 2 diabetes Hold home p.o. medications Lantus and sliding scale Close monitor while on steroids Glycemic pharmacy consult Current HbA1c level 8.6% Hypothyroidism On Synthyroid Will follow TSH Hypertension Amlodipine and losartan and metoprolol succinate and doxazosin with holding parameters GERD On omeprazole BPH On doxazosin Monitor for urinary retention Hyperlipidemia On statin DVT prophylaxis Lovenox Disposition Telemetry Full code per discussion with the Admission and Anticipated Discharge Date Admission Date: June 19, 2024 Subjective Pt seen in follow up of Acute hypoxic resp. failure + COVID Sitting up in chair on high flow NC Pt's present at the bedside Pt seems tired, but says he feels better than yesterday and ate more today Denies chest pain, cont. to have difficulty breathing but improved, + cough No abd. pain, n/v Pulmonary consulted and discussed with - start dexamethasone instead of solum edrol CRP 16 -> 11 Review of Systems Review of Systems: All systems reviewed & are unremarkable except as noted in Subjective Physical Exam Physical Exam: General- WD/WN M on HF NC, sitting up in chair Head- atraumatic Eyes- PERRL Neck- supple Lungs- + b/l ronchi and crackles (improved) Heart- regular rate and rhythm; no murmur Abdomen- normal bowel sounds, soft, nontender, no distension. Extremities- no pretibial edema, no erythema seen Neuro- alert, oriented ; PERRL, no facial palsy; no dysarthria; obeys commands, moves extremities Results & Data Results & Data Vital Signs (Past 12 Hours) Vital Signs Temp Pulse Pulse Resp BP Pulse Ox O2 Del Method 06/21/24 07:32 36.8 C 89 20 169/78 H 88 L High Flow Nasal Cannula 06/21/24 07:27 92 H 24 90 High Flow Nasal Cannula 06/21/24 03:00 91 High Flow Nasal Cannula 06/21/24 02:55 36.5 C 93 H 22 148/84 H 88 L High Flow Nasal Cannula 06/21/24 01:56 120 H 26 H 88 L High Flow Nasal Cannula 06/20/24 23:28 102 H 29 H 94 06/20/24 23:00 108 H 06/20/24 22:59 36.5 C 83 22 147/78 H 89 L High Flow Nasal Cannula 06/20/24 22:35 BiPAP, High Flow Nasal Cannula 06/20/24 21:12 99 H 26 H 96 O2 Flow Rate FiO2 06/21/24 07:32 06/21/24 07:27 45 80 06/21/24 03:00 45 70 06/21/24 02:55 06/21/24 01:56 45 70 06/20/24 23:28 70 06/20/24 23:00 06/20/24 22:59 06/20/24 22:35 06/20/24 21:12 70 Laboratory Results 06/21/24 06/21/24 06/20/24 Range/Units 07:28 06:38 20:30 WBC 4.62 L (4.8-10.8) K/ul RBC 5.06 (4.70-6.10) M/uL Hgb 14.4 (14.0-18.0) g/dl Hct 42.6 (42.0-52.0) % MCV 84.2 (80.0-100.0) fL MCH 28.5 (25.0-34.0) pg MCHC 33.8 (32.0-36.0) g/dL RDW Std Deviation 45.2 (36.4-46.3) fL RDW Coeff of Zainab 14.8 H (11.5-14.5) % Plt Count 225 (130-400) K/uL MPV 9.8 (9.4-12.4) fL Immature Gran % (Auto) 0.6 % Neut % (Auto) 88.6 % Lymph % (Auto) 4.5 % Johnston % (Auto) 6.3 % Eos % (Auto) 0.0 % Baso % (Auto) 0.0 % Neut # (Auto) 4.09 (1.40-6.50) K/uL Lymph # (Auto) 0.21 L (1.20-3.40) K/uL Johnston # (Auto) 0.29 (0.11-0.59) K/uL Eos # (Auto) 0.00 (0.00-0.50) K/uL Baso # (Auto) 0.00 (0.00-0.20) K/uL Immature Gran # (Auto) 0.03 (0.01-0.20) K/uL Sodium 145 (136-145) mmol/L Potassium 4.0 (3.5-5.1) mmol/L Chloride 110 H (98-107) mmol/L Carbon Dioxide 19 L (21-32) mmol/L Anion Gap 16 H (3-11) BUN 24 H (6-23) mg/dl Creatinine 0.92 (0.6-1.4) mg/dl Est Cr Clr Drug Dosing 59.0 ml/min eGFR 85.68 BUN/Creatinine Ratio 26.1 H (10-20) Glucose 160 H (70-99(Fasting)) mg/dl POC Glucose 144 H 127 H (70-99) mg/dl Calcium 8.7 (8.6-10.3) mg/dl Phosphorus 3.2 (2.5-4.9) mg/dl Magnesium 2.2 (1.7-2.4) mg/dl AST 24 (13-39) U/L ALT 16 (7-52) U/L Troponin I High Sens 629.4 H* (0-20) pg/ml C-Reactive Protein 11.44 H (0-0.5) mg/dl 06/20/24 06/20/24 06/20/24 Range/Units 16:23 11:21 11:01 WBC (4.8-10.8) K/ul RBC (4.70-6.10) M/uL Hgb (14.0-18.0) g/dl Hct (42.0-52.0) % MCV (80.0-100.0) fL MCH (25.0-34.0) pg MCHC (32.0-36.0) g/dL RDW Std Deviation (36.4-46.3) fL RDW Coeff of Zainab (11.5-14.5) % Plt Count (130-400) K/uL MPV (9.4-12.4) fL Immature Gran % (Auto) % Neut % (Auto) % Lymph % (Auto) % Johnston % (Auto) % Eos % (Auto) % Baso % (Auto) % Neut # (Auto) (1.40-6.50) K/uL Lymph # (Auto) (1.20-3.40) K/uL Johnston # (Auto) (0.11-0.59) K/uL Eos # (Auto) (0.00-0.50) K/uL Baso # (Auto) (0.00-0.20) K/uL Immature Gran # (Auto) (0.01-0.20) K/uL Sodium (136-145) mmol/L Potassium (3.5-5.1) mmol/L Chloride (98-107) mmol/L Carbon Dioxide (21-32) mmol/L Anion Gap (3-11) BUN (6-23) mg/dl Creatinine (0.6-1.4) mg/dl Est Cr Clr Drug Dosing ml/min eGFR BUN/Creatinine Ratio (10-20) Glucose (70-99(Fasting)) mg/dl POC Glucose 237 H 127 H (70-99) mg/dl Calcium (8.6-10.3) mg/dl Phosphorus (2.5-4.9) mg/dl Magnesium (1.7-2.4) mg/dl AST (13-39) U/L ALT (7-52) U/L Troponin I High Sens 678.1 H* (0-20) pg/ml C-Reactive Protein (0-0.5) mg/dl 06/20/24 Range/Units 06:50 WBC (4.8-10.8) K/ul RBC (4.70-6.10) M/uL Hgb (14.0-18.0) g/dl Hct (42.0-52.0) % MCV (80.0-100.0) fL MCH (25.0-34.0) pg MCHC (32.0-36.0) g/dL RDW Std Deviation (36.4-46.3) fL RDW Coeff of Zainab (11.5-14.5) % Plt Count (130-400) K/uL MPV (9.4-12.4) fL Immature Gran % (Auto) % Neut % (Auto) % Lymph % (Auto) % Johnston % (Auto) % Eos % (Auto) % Baso % (Auto) % Neut # (Auto) (1.40-6.50) K/uL Lymph # (Auto) (1.20-3.40) K/uL Johnston # (Auto) (0.11-0.59) K/uL Eos # (Auto) (0.00-0.50) K/uL Baso # (Auto) (0.00-0.20) K/uL Immature Gran # (Auto) (0.01-0.20) K/uL Sodium (136-145) mmol/L Potassium (3.5-5.1) mmol/L Chloride (98-107) mmol/L Carbon Dioxide (21-32) mmol/L Anion Gap (3-11) BUN (6-23) mg/dl Creatinine (0.6-1.4) mg/dl Est Cr Clr Drug Dosing ml/min eGFR BUN/Creatinine Ratio (10-20) Glucose (70-99(Fasting)) mg/dl POC Glucose (70-99) mg/dl Calcium (8.6-10.3) mg/dl Phosphorus (2.5-4.9) mg/dl Magnesium (1.7-2.4) mg/dl AST (13-39) U/L ALT (7-52) U/L Troponin I High Sens (0-20) pg/ml C-Reactive Protein 16.95 H (0-0.5) mg/dl Medications Administered Current Inpatient Medications Acetaminophen (Acetaminophen 325 Mg Tab) 650 mg PO Q4H PRN PRN Reason: Pain or Fever Stop: 07/20/24 00:57 Last Admin: 06/20/24 17:38 Dose: 650 mg Albuterol (Albut/Ipratrop 3mg/0.5mg Neb 3 Ml Vial) 3 ml NEB QIDR [facility]; Protocol Stop: 07/20/24 06:59 Last Admin: 06/21/24 07:25 Dose: 3 ml Albuterol (Albut/Ipratrop 3mg/0.5mg Neb 3 Ml Vial) 3 ml NEB Q4H PRN; Protocol PRN Reason: Shortness Of Breath Or Wheezing Stop: 07/20/24 00:57 Albuterol (Albuterol Hfa 8 Gm Inhaler) 2 puffs INH Q4H PRN PRN Reason: Shortness Of Breath Or Wheezin Stop: 07/20/24 00:57 Amlodipine Besylate (Amlodipine Besylate 5 Mg Tab) 5 mg PO DAILY [facility] Stop: 07/20/24 08:59 Last Admin: 06/20/24 08:38 Dose: 5 mg Aspirin (Aspirin 81 Mg Ectab) 81 mg PO DAILY [facility] Stop: 07/20/24 08:59 Last Admin: 06/20/24 08:36 Dose: 81 mg Atorvastatin Calcium (Atorvastatin 20 Mg Tab) 20 mg PO DAILY [facility] Stop: 07/20/24 08:59 Last Admin: 06/20/24 08:38 Dose: 20 mg Dextrose (Dextrose 50% 50 Ml Syringe) 25 - 50 ml IV UD PRN; Protocol PRN Reason: Hypoglycemia Protocol Stop: 07/20/24 00:57 Doxazosin Mesylate (Doxazosin Mesylate Tab 2 Mg Tab) 2 mg PO PM [facility] Stop: 07/20/24 20:59 Last Admin: 06/20/24 20:33 Dose: 2 mg Doxycycline Hyclate (Doxycycline Hyclate 100 Mg Cap) 100 mg PO BID [facility] Stop: 06/24/24 09:01 Last Admin: 06/20/24 20:34 Dose: 100 mg Enoxaparin Sodium (Enoxaparin Inj 40 Mg/0.4 Ml Syr) 40 mg SQ DAILY [facility] Stop: 07/20/24 08:59 Last Admin: 06/20/24 11:32 Dose: 40 mg Fluticasone Furoate (Fluticasone Furoate 100mcg 14 Puffs/Inhaler) 1 puffs INH DAILY [facility] Stop: 07/20/24 08:59 Last Admin: 06/20/24 08:38 Dose: 1 puffs Fluticasone Propionate (Fluticasone Propionate Na Spr 16 Gm Btl) 2 sprays NA DAILY [facility] Stop: 07/20/24 08:59 Last Admin: 06/20/24 11:35 Dose: Not Given Glucagon (Glucagon For Inj 1 Mg Vial) 1 mg SQ UD PRN; Protocol PRN Reason: Hypoglycemia Protocol Stop: 07/20/24 00:57 Glucose (Glucose 40% Gel 15 Gm Tube) 15 - 30 gm PO UD PRN; Protocol PRN Reason: Hypoglycemia Protocol Stop: 07/20/24 00:57 Glucose (Glucose 10 Tab/Tube) 4 - 8 tab PO UD PRN; Protocol PRN Reason: Hypoglycemia Protocol Stop: 07/20/24 00:57 Remdesivir 100 mg/ Sodium (Chloride) 250 mls @ 250 mls/hr IV Q24H [facility] Stop: 06/23/24 20:59 Last Infusion: 06/20/24 21:38 Dose: Infused Dexamethasone 10 mg/ Syringe 2.5 mls @ 1 mls/min IV BID [facility] Stop: 07/21/24 08:59 Insulin Aspart (Insulin Aspart Per Unit Charge) 0 units SC ACHS [facility] Stop: 07/20/24 02:14 Last Admin: 06/20/24 21:20 Dose: Not Given Insulin Glargine (Lantus Per Unit Charge) 10 units SQ DAILY [facility] Stop: 07/21/24 08:59 Levothyroxine Sodium (Levothyroxine Sodium 100 Mcg Tablet) 100 mcg PO DAILYBB [facility] Stop: 07/20/24 06:29 Last Admin: 06/21/24 05:34 Dose: 100 mcg Losartan Potassium (Losartan Potassium 25 Mg Tab) 25 mg PO DAILY [facility] Stop: 07/20/24 08:59 Last Admin: 06/20/24 08:36 Dose: 25 mg Metoprolol Succinate (Metoprolol Succ 25mg Ext Rel Tab) 12.5 mg PO DAILY [facility] Stop: 07/20/24 08:59 Last Admin: 06/20/24 11:32 Dose: 12.5 mg Miscellaneous (Carbohydrates For Hypoglycemia ) 15 - 30 gm PO UD PRN PRN Reason: Hypoglycemia Protocol Stop: 07/20/24 00:57 Miscellaneous Information (Pharmacy Glycemic Mgmt Consult) 1 each N/A UD PRN PRN Reason: Consult Stop: 07/20/24 00:57 Montelukast Sodium (Montelukast Sodium 10 Mg Tablet) 10 mg PO DAILY [facility] Stop: 07/20/24 08:59 Last Admin: 06/20/24 08:38 Dose: 10 mg Nitroglycerin (Nitroglycerin Sl 0.4 Mg/Tab Tab) 0.4 mg SL Q5M PRN PRN Reason: Chest Pain Stop: 07/20/24 00:57 Pantoprazole Sodium (Pantoprazole 40 Mg Tab) 40 mg PO BID [facility] Stop: 07/21/24 08:59 Polyethylene Glycol (Polyethylene (Miralax) 17 Gm Pack) 17 gm PO DAILY PRN PRN Reason: Constipation Stop: 07/20/24 00:57 Sodium Chloride (Sodium Chlor 7% 4 Ml Neb) 4 ml NEB BIDR [facility] Stop: 07/20/24 06:59 Last Admin: 06/21/24 07:25 Dose: 4 ml Umeclidinium/Vilanterol (Umeclidinium/Vilanterol 62.5/25mcg 7 Puffs/Inhaler) 1 puffs INH DAILY [facility] Stop: 07/20/24 08:59 Last Admin: 06/20/24 08:44 Dose: 1 puffs
[2024-06-21] MEDS: PANTOprazole 40 MG TAB PO SCH (08:26)
[2024-06-21] MEDS ORDERED: DEXAMETHASONE SOD INJ 4 MG/ML VIAL IV SCH (09:00)
[2024-06-21] MEDS: LANTUS PER UNIT CHARGE SQ SCH (09:29)
[2024-06-21] MEDS: dexAMETHasone 10 MG in SYRINGE 0 ML IV SCH (09:30)
--- NOTE | 2024-06-21 11:26 | Cardiology Consultation ---
Date of Consultation June 21, 2024 Assessment & Plan (1) Multifocal pneumonia: (2) COVID-19: (3) Myocardial strain: Patient denies angina. Echocardiogram reveals normal to hyperdynamic left ventricular systolic function. Stable moderate aortic valve stenosis. Relatively mild elevation in the high-sensitivity troponin felt to be related to myocardial strain/hypoxia in the setting of noncardiac illness with multifocal pneumonia noted on CT chest in the setting of underlying severe asthmatic lung disease requiring home oxygen therapy and positive SARS-CoV-2 testing. Of note, patient appears to have had a similar admission in June, with noted influenza A illness at that time. Systemic anticoagulation for not felt to be indicated as I do not think the patient's presentation is suggestive of an acute intra coronary thrombus. Continue ongoing treatment with aspirin and atorvastatin. Agree with doxycycline, remdesivir and dexamethasone. Pulmonary input noted and appreciated. Continue metoprolol succinate 12.5 mg daily. Continue Lovenox 40 mg subcu daily for DVT prophylaxis. No further cardiac testing felt to be indicated at this time. Please call with any additional questions or concerns. History of Present Illness Attending Physician: Paulie Witt MD History of Present Illness MR Sebastian is a 78-year-old male seen in cardiology consultation per the request of Dr. Witt for evaluation of elevation in troponin I. Patient has a longstanding history of severe asthma and is on supplementary oxygen, 2 L/min. He presented to the emergency room with 1 week of preceding respiratory illness with progressive shortness of breath and has been diagnosed with COVID-19 related multifocal pneumonia as visualized on chest CT. Initial lab work was notable for a lactic acidosis with lactate level of 3.8 mmol/L on 06/19/2024 that had since trended down. High since he troponin was 63.5 PG per mL on presentation on 06/19/2024 and subsequently trended up to 788 PG per mL on 06/20/2024 having since trended to 629.4 PG per mL as of this morning. Patient with significant oxygen requirement, pulse oximetry 88% on high flow nasal cannula. Patient notes significant shortness of breath with minimal activity such as walking to the bathroom to urinate. Denies any chest discomfort. Patient without known history of underlying coronary heart disease. Has previously followed with cardiology for aortic stenosis and hypertension. Telemetry reveals sinus rhythm in the range of 70 bpm 120 bpm with occasional premature ventricular contractions and occasional premature atrial contractions. I brief episode of blocked PACs noted overnight. Allergies Allergy/AdvReac Type Severity Reaction Status Date / Time cat dander Allergy Unknown watery eyes Verified 12/30/23 00:53 No Known Drug Allergies Allergy Unknown . Verified 12/30/23 00:53 SUJATHA Inhibitors AdvReac Mild Cough Verified 12/30/23 00:53 Home Medications Medication Instructions Recorded Confirmed Type albuterol sulfate 90 mcg/actuation 2 puff inhalation Q4H PRN 06/19/24 06/19/24 History aerosol inhaler Shortness Of Breath Or Wheezing amlodipine 5 mg tablet 5 mg PO DAILY 06/19/24 06/19/24 History aspirin 81 mg tablet,delayed 81 mg PO DAILY 06/19/24 06/19/24 History release atorvastatin 20 mg tablet 20 mg PO DAILY 06/19/24 06/19/24 History doxazosin 2 mg tablet 2 mg PO PM 06/19/24 06/19/24 History doxycycline hyclate 100 mg capsule 100 mg PO BID 06/19/24 06/19/24 History empagliflozin 25 mg tablet 25 mg PO DAILY 06/19/24 06/19/24 History (Jardiance) fluticasone fur. 100 mcg-umeclid 1 inh inhalation DAILY 06/19/24 06/19/24 History 62.5 mcg-vilant 25 mcg inhalat.powder (Trelegy Ellipta) glipizide 5 mg tablet 5 mg PO BID 06/19/24 06/19/24 History ipratropium bromide 0.02 % 2.5 mg continuous nebulization TID 06/19/24 06/19/24 History solution for inhalation levalbuterol HCl 1.25 mg/3 mL 1.25 mg inhalation Q4H PRN sob 06/19/24 06/19/24 History solution for nebulization levothyroxine 100 mcg tablet 100 mcg PO DAILY 06/19/24 06/19/24 History losartan 25 mg tablet 25 mg PO DAILY 06/19/24 06/19/24 History metoprolol succinate 25 mg 12.5 mg PO DAILY 06/19/24 06/19/24 History tablet,extended release 24 hr mometasone 50 mcg/actuation nasal 2 spray intranasal DAILY 06/19/24 06/19/24 History spray montelukast 10 mg tablet 10 mg PO DAILY 06/19/24 06/19/24 History omalizumab 150 mg/mL subcutaneous 150 mg subcut Q4WK 06/19/24 06/19/24 History syringe (Xolair) omeprazole 20 mg capsule,delayed 20 mg PO DAILY 06/19/24 06/19/24 History release prednisone 5 mg tablet 5 mg PO DAILY 06/19/24 06/19/24 History sodium chloride 3 % for 4 ml inhalation BID 06/19/24 06/19/24 History nebulization Patient History Medical History Asthma exacerbation Osteoarthritis Chronic back pain GERD (gastroesophageal reflux disease) Hypothyroidism Diabetes mellitus, type 2 NIDDM Chronic steroid use COPD Chronic headaches Hypertension Hyperlipidemia Pneumonia annually. last 11/2019. Asthma H. pylori infection hx Surgical History History of tooth extraction History of tonsillectomy History of shoulder surgery left History of colonoscopy Family History Mother Diabetes Father Diabetes Emphysema of lung Sister Diabetes Other No family history of adverse response to anesthesia Social History Smoking Status: Never smoker Second Hand Exposure: No; Do You Dip or Chew Tobacco: No; Hx Alcohol Use: No Hx Substance Use: No Preferred Language: Gabonese Communication Ability: Effective Lead Mason Tender Required: No Beliefs That Will Affect Care: None marital status: Current Living Situation: Spouse current occupational status: retired Feels Safe at Home: Yes Safety Concerns: Feels Safe At This Time Assistive Devices: Cane, Denture - Upper, Oxygen - Continuous, Walker and Wheelchair Review of Systems Review of Systems: All systems reviewed & are unremarkable except as noted in HPI & below Physical Exam Physical Exam: General: Chronically ill in appearance Eyes: conjunctiva are pink and non-injected, sclera clear Neck: normal jugular venous pulse, no hepatojugular reflux Chest: normal shape and normal respiratory effort Lungs: Mildly decreased breath sounds at the bases Cardiac Exam: - regular heart sounds, no murmurs, rubs, or gallops, no jugular venous distention Abdomen: abdomen soft, non-tender, no abnormal masses and no hepatosplenomegaly Musculoskeletal: no gait disturbance, no weakness Extremities: no edema and no cyanosis Neuro:awake, conversant, follows commands, no focal motor deficits Psych: appropriate affect and insight. Results & Data Vital Signs (Past 12 Hours) Vital Signs Temp Pulse Pulse Resp BP Pulse Ox O2 Del Method 06/21/24 07:32 36.8 C 89 20 169/78 H 88 L High Flow Nasal Cannula 06/21/24 07:27 92 H 24 90 High Flow Nasal Cannula 06/21/24 05:00 85 06/21/24 03:00 91 High Flow Nasal Cannula 06/21/24 02:55 36.5 C 93 H 22 148/84 H 88 L High Flow Nasal Cannula 06/21/24 01:56 120 H 26 H 88 L High Flow Nasal Cannula 06/20/24 23:28 102 H 29 H 94 O2 Flow Rate FiO2 06/21/24 07:32 06/21/24 07:27 45 80 06/21/24 05:00 06/21/24 03:00 45 70 06/21/24 02:55 06/21/24 01:56 45 70 06/20/24 23:28 70 Laboratory Results Cardiac Enzymes 06/20/24 06/21/24 Range/Units 11:21 06:38 AST 24 (13-39) U/L Troponin I High Sens 678.1 H* 629.4 H* (0-20) pg/ml CBC 06/21/24 Range/Units 06:38 WBC 4.62 L (4.8-10.8) K/ul RBC 5.06 (4.70-6.10) M/uL Hgb 14.4 (14.0-18.0) g/dl Hct 42.6 (42.0-52.0) % Plt Count 225 (130-400) K/uL Neut # (Auto) 4.09 (1.40-6.50) K/uL Lymph # (Auto) 0.21 L (1.20-3.40) K/uL Marion # (Auto) 0.29 (0.11-0.59) K/uL Eos # (Auto) 0.00 (0.00-0.50) K/uL Baso # (Auto) 0.00 (0.00-0.20) K/uL Comprehensive Metabolic Panel 06/21/24 Range/Units 06:38 Sodium 145 (136-145) mmol/L Potassium 4.0 (3.5-5.1) mmol/L Chloride 110 H (98-107) mmol/L Carbon Dioxide 19 L (21-32) mmol/L BUN 24 H (6-23) mg/dl Creatinine 0.92 (0.6-1.4) mg/dl Glucose 160 H (70-99(Fasting)) mg/dl Calcium 8.7 (8.6-10.3) mg/dl AST 24 (13-39) U/L ALT 16 (7-52) U/L Intake and Output 06/20/24 06/21/24 06/21/24 22:59 06:59 14:59 Intake Total 490 / 1590 240 / 1590 Output Total 950 / 1900 550 / 1900 Balance -460 / -310 -310 / -310 Intake: IV 250 / 750 Remdesivir 100 mg In Sodium 250 / 250 Chloride 0.9% 230 ml @ 250 mls/ hr IV Q24H [facility] Rx#:[id number] Oral 240 / 840 240 / 840 Output: Urine 950 / 1900 550 / 1900 Other: Weight 73.2 kg Weight Measurement Method Standing Scale C-reactive protein levels of 16.95 on 06/20/2024, 11.44 on 06/21/2024 Hemoglobin A1c 8.6% Diagnostic Findings EKG performed 06/19/2024 at 1957 and interpreted independently: Baseline artifact. Sinus tachycardia 101 bpm with occasional PVCs, baseline artifact, nonspecific T wave abnormality. EKG 06/21/2024 at 8:08 AM: Sinus tachycardia 106 bpm, occasional PACs, compared to the previous, the nonspecific repolarization abnormalities have resolved. Echocardiogram performed 06/20/2024, technically limited echo with patient sitting upright in a chair Mild concentric left ventricular perjury, LVEF is normal to hyperdynamic at 65 to 70% Normal LV wall motion without regional wall motion abnormalities Moderate aortic valve calcification observed, moderate aortic valve stenosis is present Grade 1 diastolic dysfunction Compared to previous echocardiogram performed in June,, the indices of aortic valve stenosis are relatively unchanged
--- NOTE | 2024-06-21 15:06 | Electrocardiogram Report ---
Test Reason : Blood Pressure : */* mmHG Vent. Rate : 106 BPM Atrial Rate : 106 BPM P-R Int : 126 ms QRS Dur : 72 ms QT Int : 350 ms P-R-T Axes : 48 20 70 degrees QTcB Int : 464 ms Sinus tachycardia with Premature atrial complexes with Aberrant conduction Otherwise normal ECG When compared with ECG of 19-Jun-2024 22:22, (unconfirmed) T wave inversion no longer evident in Inferior leads Confirmed by Patricio Zuniga ([id number]) on 06/21/2024 3:05:40 PM Referred By: REFERRED SELF Confirmed By: Patricio Zuniga
[2024-06-21] MEDS: FUROSEMIDE INJ 20 MG/2 ML VIAL IV ONE (20:05)
--- NOTE | 2024-06-22 06:47 | Hospitalist Progress Note ---
Date of Service June 22, 2024 Assessment & Plan (1) Acute hypoxemic respiratory failure: Plan: 78-year-old male with past medical history significant for type 2 diabetes, hypothyroidism, hyperlipidemia, obstructive sleep apnea noncompliant with CPAP, severe persistent asthma dependent on systemic steroids, restrictive lung disease, neuromuscular respiratory weakness, chronic heart failure with preserved ejection fraction, hypertension, mild aortic stenosis, GERD, BPH, migraine variant, periodic Limb movement disorder, who lives at home with his comes because of shortness of breath. Patient is getting treated for pneumonia with Doxy and prednisone taper for last few days. As per he is sick for last 1 week. He is on oxygen 2 L at home. But since today morning he was getting more short of breath. Has mild cough. No fevers. Has some headache. Appetite is okay. No nausea ,vomiting or diarrhea. No abdominal pain. His oxygen was bumped to 2.5 L but still he was saturating only mid 80s while resting and while ambulating oxygen saturation dropping to 70s. In the ER is requiring high flow oxygen. Currently resting comfortably. Somewhat hard of hearing. helped with H&P. Patient denies any chest pain. Vision is okay. No runny nose or sore throat. Normal micturition. Acute hypoxemic respiratory failure Multifocal pneumonia COVID Asthma exacerbation Requiring high flow oxygen VBG obtained CTA chest - negative for PE 1. Accounting for limitations with extensive respiratory artifact, there is no definite evidence for large/central pulmonary embolism. The majority of the subsegmental and distal pulmonary artery segments are of nondiagnostic quality. 2. Extensive patchy confluent irregular ground-glass opacities now identified diffusely throughout the lungs, most prominent in the right lung apex. The primary consideration is pneumonia, to include atypical bacterial and viral etiologies. No pleural effusion or pneumothorax. Pulmonary medicine consulted - recommend to DC cefepime, vanco, MRSA swab negat., procal negat. DC Solu-Medrol, give dexamethasone 10 mg twice daily for at least 5 days follo wed by 10 mg daily for 5 days Pantoprazole Continue with O2 supplementation to keep oxygen saturation between 90-92%. Awake proning will be helpful Continue with incentive spirometry Continue with flutter valve. Recommend patient to be kept euvolemic to negative balance after initial fluid resuscitation Encouraged to continue with CPAP whenever he is sleeping and whenever he is napping. COVID COVID precautions Remdesivir and follow remdesivir labs Steroids -> dexamethasone as above, per pulmonary medicine CRP 16 -> 11 Close monitor Multifocal pneumonia CT chest obtained, as above On Vanco and cefepime Complete p.o. doxycycline started as outpatient Follow the response Asthma (steroid dependent)exacerbation from above Restrictive lung disease Neuromuscular respiratory weakness DuoNebs ATC and as needed Hypertonic saline neb twice daily IV Solu-Medrol 40 mg 3 times daily-> switched to dexamethasone Antibiotics as above -> cont. w/ doxy Currently on high flow Continue home inhalers Hold home p.o. prednisone while getting IV steroids Pulmonary consulted Obstructive sleep apnea non compliant with CPAP On home oxygen Currently on high flow cont. cpap Elevated lactic acid Mostly from respiratory distress Trending down Will follow repeat levels Elevated troponin troponin this AM 788 Echo obtained and reviewed results read by cardiology cardiology consulted, likely demand ischemia Chronic heart failure with preserved infection Mild aortic stenosis Monitor for volume overload Type 2 diabetes Hold home p.o. medications Lantus and sliding scale Close monitor while on steroids Glycemic pharmacy consult Current HbA1c level 8.6% Hypothyroidism On Synthyroid Will follow TSH Hypertension Amlodipine and losartan and metoprolol succinate and doxazosin with holding parameters GERD On omeprazole BPH On doxazosin Monitor for urinary retention Hyperlipidemia On statin DVT prophylaxis Lovenox Disposition Telemetry Full code per discussion with the Admission and Anticipated Discharge Date Admission Date: June 19, 2024 Subjective Pt seen in follow up of Acute hypoxic resp. failure + COVID Sitting up in chair on high flow NC Pt seems tired, but says he feels better Denies chest pain, cont. to have difficulty breathing but improved, + cough No abd. pain, n/v Pulmonary consulted CRP 16 -> 11 Review of Systems Review of Systems: All systems reviewed & are unremarkable except as noted in Subjective Physical Exam Physical Exam: General- WD/WN M on HF NC, sitting up in chair Head- atraumatic Eyes- PERRL Neck- supple Lungs- + b/l ronchi and crackles (improved) Heart- regular rate and rhythm; no murmur Abdomen- normal bowel sounds, soft, nontender, no distension. Extremities- no pretibial edema, no erythema seen Neuro- alert, oriented ; PERRL, no facial palsy; no dysarthria; obeys commands, moves extremities Results & Data Results & Data Vital Signs (Past 12 Hours) Vital Signs Temp Pulse Pulse Resp BP Pulse Ox O2 Del Method 06/22/24 04:47 97 H 26 H 96 06/22/24 03:30 85 26 H 94 06/22/24 03:05 36.8 C 79 23 155/86 H 93 High Flow Nasal Cannula 06/21/24 23:07 119 H 25 H 94 06/21/24 23:00 98 H 06/21/24 23:00 36.8 C 97 H 25 H 160/74 H 90 High Flow Nasal Cannula 06/21/24 22:55 BiPAP, High Flow Nasal Cannula 06/21/24 19:08 71 20 90 High Flow Nasal Cannula 06/21/24 19:06 71 20 High Flow Nasal Cannula 06/21/24 19:00 36.5 C 85 24 149/72 H 90 High Flow Nasal Cannula O2 Flow Rate FiO2 06/22/24 04:47 70 06/22/24 03:30 70 06/22/24 03:05 06/21/24 23:07 70 06/21/24 23:00 06/21/24 23:00 45 70 06/21/24 22:55 45 70 06/21/24 19:08 45 7 06/21/24 19:06 45 70 06/21/24 19:00 Laboratory Results 06/22/24 06/22/24 06/22/24 Range/Units 12:02 08:19 07:39 WBC 6.00 (4.8-10.8) K/ul RBC 5.13 (4.70-6.10) M/uL Hgb 14.7 (14.0-18.0) g/dl Hct 43.1 (42.0-52.0) % MCV 84.0 (80.0-100.0) fL MCH 28.7 (25.0-34.0) pg MCHC 34.1 (32.0-36.0) g/dL RDW Std Deviation 45.2 (36.4-46.3) fL RDW Coeff of Zainab 14.7 H (11.5-14.5) % Plt Count 207 (130-400) K/uL MPV 11.2 (9.4-12.4) fL Immature Gran % (Auto) 0.5 % Neut % (Auto) 90.7 % Lymph % (Auto) 3.3 % [place] % (Auto) 5.3 % Eos % (Auto) 0.0 % Baso % (Auto) 0.2 % Neut # (Auto) 5.44 (1.40-6.50) K/uL Lymph # (Auto) 0.20 L (1.20-3.40) K/uL [place] # (Auto) 0.32 (0.11-0.59) K/uL Eos # (Auto) 0.00 (0.00-0.50) K/uL Baso # (Auto) 0.01 (0.00-0.20) K/uL Immature Gran # (Auto) 0.03 (0.01-0.20) K/uL Polychromasia 1+ Ovalocytes 1+ Echinocytes 1+ Sodium 143 (136-145) mmol/L Potassium 3.9 (3.5-5.1) mmol/L Chloride 108 H (98-107) mmol/L Carbon Dioxide 19 L (21-32) mmol/L Anion Gap 16 H (3-11) BUN 30 H (6-23) mg/dl Creatinine 0.96 (0.6-1.4) mg/dl Est Cr Clr Drug Dosing 56.7 ml/min eGFR 81.41 BUN/Creatinine Ratio 31.3 H (10-20) Glucose 202 H (70-99(Fasting)) mg/dl POC Glucose 132 H 164 H (70-99) mg/dl Calcium 8.7 (8.6-10.3) mg/dl Phosphorus 3.1 (2.5-4.9) mg/dl Magnesium 2.2 (1.7-2.4) mg/dl AST 26 (13-39) U/L ALT 16 (7-52) U/L 06/21/24 06/21/24 Range/Units 20:24 17:40 WBC (4.8-10.8) K/ul RBC (4.70-6.10) M/uL Hgb (14.0-18.0) g/dl Hct (42.0-52.0) % MCV (80.0-100.0) fL MCH (25.0-34.0) pg MCHC (32.0-36.0) g/dL RDW Std Deviation (36.4-46.3) fL RDW Coeff of Zainab (11.5-14.5) % Plt Count (130-400) K/uL MPV (9.4-12.4) fL Immature Gran % (Auto) % Neut % (Auto) % Lymph % (Auto) % [place] % (Auto) % Eos % (Auto) % Baso % (Auto) % Neut # (Auto) (1.40-6.50) K/uL Lymph # (Auto) (1.20-3.40) K/uL [place] # (Auto) (0.11-0.59) K/uL Eos # (Auto) (0.00-0.50) K/uL Baso # (Auto) (0.00-0.20) K/uL Immature Gran # (Auto) (0.01-0.20) K/uL Polychromasia Ovalocytes Echinocytes Sodium (136-145) mmol/L Potassium (3.5-5.1) mmol/L Chloride (98-107) mmol/L Carbon Dioxide (21-32) mmol/L Anion Gap (3-11) BUN (6-23) mg/dl Creatinine (0.6-1.4) mg/dl Est Cr Clr Drug Dosing ml/min eGFR BUN/Creatinine Ratio (10-20) Glucose (70-99(Fasting)) mg/dl POC Glucose 172 H 253 H (70-99) mg/dl Calcium (8.6-10.3) mg/dl Phosphorus (2.5-4.9) mg/dl Magnesium (1.7-2.4) mg/dl AST (13-39) U/L ALT (7-52) U/L Medications Administered Current Inpatient Medications Acetaminophen (Acetaminophen 325 Mg Tab) 650 mg PO Q4H PRN PRN Reason: Pain or Fever Stop: 07/20/24 00:57 Last Admin: 06/21/24 14:25 Dose: 650 mg Albuterol (Albut/Ipratrop 3mg/0.5mg Neb 3 Ml Vial) 3 ml NEB QIDR [facility]; Protocol Stop: 07/20/24 06:59 Last Admin: 06/21/24 19:05 Dose: 3 ml Albuterol (Albut/Ipratrop 3mg/0.5mg Neb 3 Ml Vial) 3 ml NEB Q4H PRN; Protocol PRN Reason: Shortness Of Breath Or Wheezing Stop: 07/20/24 00:57 Albuterol (Albuterol Hfa 8 Gm Inhaler) 2 puffs INH Q4H PRN PRN Reason: Shortness Of Breath Or Wheezin Stop: 07/20/24 00:57 Amlodipine Besylate (Amlodipine Besylate 5 Mg Tab) 5 mg PO DAILY [facility] Stop: 07/20/24 08:59 Last Admin: 06/21/24 08:27 Dose: 5 mg Aspirin (Aspirin 81 Mg Ectab) 81 mg PO DAILY [facility] Stop: 07/20/24 08:59 Last Admin: 06/21/24 08:27 Dose: 81 mg Atorvastatin Calcium (Atorvastatin 20 Mg Tab) 20 mg PO DAILY [facility] Stop: 07/20/24 08:59 Last Admin: 06/21/24 08:27 Dose: 20 mg Dextrose (Dextrose 50% 50 Ml Syringe) 25 - 50 ml IV UD PRN; Protocol PRN Reason: Hypoglycemia Protocol Stop: 07/20/24 00:57 Doxazosin Mesylate (Doxazosin Mesylate Tab 2 Mg Tab) 2 mg PO PM [facility] Stop: 07/20/24 20:59 Last Admin: 06/21/24 20:25 Dose: 2 mg Doxycycline Hyclate (Doxycycline Hyclate 100 Mg Cap) 100 mg PO BID [facility] Stop: 06/24/24 09:01 Last Admin: 06/21/24 20:25 Dose: 100 mg Enoxaparin Sodium (Enoxaparin Inj 40 Mg/0.4 Ml Syr) 40 mg SQ DAILY [facility] Stop: 07/20/24 08:59 Last Admin: 06/21/24 08:30 Dose: 40 mg Fluticasone Furoate (Fluticasone Furoate 100mcg 14 Puffs/Inhaler) 1 puffs INH DAILY [facility] Stop: 07/20/24 08:59 Last Admin: 06/21/24 08:29 Dose: 1 puffs Fluticasone Propionate (Fluticasone Propionate Na Spr 16 Gm Btl) 2 sprays NA DAILY [facility] Stop: 07/20/24 08:59 Last Admin: 06/21/24 08:29 Dose: Not Given Glucagon (Glucagon For Inj 1 Mg Vial) 1 mg SQ UD PRN; Protocol PRN Reason: Hypoglycemia Protocol Stop: 07/20/24 00:57 Glucose (Glucose 40% Gel 15 Gm Tube) 15 - 30 gm PO UD PRN; Protocol PRN Reason: Hypoglycemia Protocol Stop: 07/20/24 00:57 Glucose (Glucose 10 Tab/Tube) 4 - 8 tab PO UD PRN; Protocol PRN Reason: Hypoglycemia Protocol Stop: 07/20/24 00:57 Remdesivir 100 mg/ Sodium (Chloride) 250 mls @ 250 mls/hr IV Q24H [facility] Stop: 06/23/24 20:59 Last Infusion: 06/21/24 21:06 Dose: Infused Dexamethasone 10 mg/ Syringe 2.5 mls @ 1 mls/min IV BID [facility] Stop: 07/21/24 08:59 Last Admin: 06/21/24 20:26 Dose: 1 mls/min Insulin Aspart (Insulin Aspart Per Unit Charge) 0 units SC ACHS [facility] Stop: 07/20/24 02:14 Last Admin: 06/21/24 20:31 Dose: 1 units Insulin Glargine (Lantus Per Unit Charge) 10 units SQ DAILY [facility] Stop: 07/21/24 08:59 Last Admin: 06/21/24 09:29 Dose: 10 units Levothyroxine Sodium (Levothyroxine Sodium 100 Mcg Tablet) 100 mcg PO DAILYBB [facility] Stop: 07/20/24 06:29 Last Admin: 06/22/24 06:10 Dose: 100 mcg Losartan Potassium (Losartan Potassium 25 Mg Tab) 25 mg PO DAILY [facility] Stop: 07/20/24 08:59 Last Admin: 06/21/24 08:26 Dose: 25 mg Metoprolol Succinate (Metoprolol Succ 25mg Ext Rel Tab) 12.5 mg PO DAILY [facility] Stop: 07/20/24 08:59 Last Admin: 06/21/24 08:26 Dose: 12.5 mg Miscellaneous (Carbohydrates For Hypoglycemia ) 15 - 30 gm PO UD PRN PRN Reason: Hypoglycemia Protocol Stop: 07/20/24 00:57 Miscellaneous Information (Pharmacy Glycemic Mgmt Consult) 1 each N/A UD PRN PRN Reason: Consult Stop: 07/20/24 00:57 Montelukast Sodium (Montelukast Sodium 10 Mg Tablet) 10 mg PO DAILY [facility] Stop: 07/20/24 08:59 Last Admin: 06/21/24 08:28 Dose: 10 mg Nitroglycerin (Nitroglycerin Sl 0.4 Mg/Tab Tab) 0.4 mg SL Q5M PRN PRN Reason: Chest Pain Stop: 07/20/24 00:57 Pantoprazole Sodium (Pantoprazole 40 Mg Tab) 40 mg PO BID [facility] Stop: 07/21/24 08:59 Last Admin: 06/21/24 20:04 Dose: 40 mg Polyethylene Glycol (Polyethylene (Miralax) 17 Gm Pack) 17 gm PO DAILY PRN PRN Reason: Constipation Stop: 07/20/24 00:57 Sodium Chloride (Sodium Chlor 7% 4 Ml Neb) 4 ml NEB BIDR [facility] Stop: 07/20/24 06:59 Last Admin: 06/21/24 22:16 Dose: 4 ml Umeclidinium/Vilanterol (Umeclidinium/Vilanterol 62.5/25mcg 7 Puffs/Inhaler) 1 puffs INH DAILY [facility] Stop: 07/20/24 08:59 Last Admin: 06/21/24 08:29 Dose: 1 puffs
[2024-06-22 09:10] LABS: Hematocrit (blood only) 43.1 % (42.0-52.0); Hemoglobin 14.7 g/dl (14.0-18.0); Mean Corpuscular Hemoglobin 28.7 pg (25.0-34.0); Mean Corpuscular Hgb Conc 34.1 g/dL (32.0-36.0); Mean Platelet Volume 11.2 fL (9.4-12.4); Platelet Count 207 K/uL (130-400); RDW Coefficient of Variation 14.7 % (11.5-14.5); RDW Standard Deviation 45.2 fL (36.4-46.3); Red Blood Count 5.13 M/uL (4.70-6.10)
[2024-06-22 09:18] LABS: BUN Creatinine Ratio 31.3 (10-20); Calcium 8.7 mg/dl (8.6-10.3); Creatinine Clr Calc Pharmacy 56.7 ml/min; Magnesium 2.2 mg/dl (1.7-2.4); Phosphorus 3.1 mg/dl (2.5-4.9); Potassium 3.9 mmol/L (3.5-5.1)
[2024-06-22 09:33] LABS: Basophils # (auto) 0.01 K/uL (0.00-0.20); Basophils % (auto) 0.2 %; Echinocytes 1+; Immature Granulocytes # (auto) 0.03 K/uL (0.01-0.20); Immature Granulocytes % (auto) 0.5 %; Lymphocytes % (auto) 3.3 %; Monocytes # (auto) 0.32 K/uL (0.11-0.59); Monocytes % (auto) 5.3 %; Neutrophils # (auto) 5.44 K/uL (1.40-6.50); Neutrophils % (auto) 90.7 %; Ovalocytes 1+; Polychromasia 1+
--- NOTE | 2024-06-22 12:39 | Pharmacy Report ---
Pharmacy Glycemic Short Note 2 - Date of Service June 22, 2024 - Glycemic Short BSG Results (Last 24 hours): 06/21/24 06/21/24 06/22/24 17:40 20:24 07:39 Glucose POC Glucose 253 H 172 H 164 H 06/22/24 06/22/24 08:19 12:02 Glucose 202 H POC Glucose 132 H OUTPATIENT ANTIDIABETIC REGIMEN: * glipizide 5 mg BID, empagliflozin 25 mg daily, pred 5 mg daily * A1c 8.6% 06/20 ASSESSMENT: 06/20: * Patient admitted with COVID pneumonia, ordered solumedrol 40 mg IV q8H * BSG initially elevated, has trended down with 10 units of lantus and weight based stress of 2 novolog * Continue current orders for now 06/22: * BSG on 06/21 ranging from 144-253, steroid changed to IV dexamethasone, * Today BSGs better controlled with 132-144 * Will change Lantus to scale based starting tonight; will also tighten Novolog parameters PLAN FOR INPATIENT GLYCEMIC CONTROL: * Hold outpatient oral diabetes medications * Basal insulin * Lantus change to scaled order as follows: <140: hold, 140-180 give 5 units, >180 give 10 units, will reassess tomorrow morning * Bolus insulin * NovoLog per scale ACHS or Q6hrs while NPO * Goal Range: Low 110 mg/dL - High 150 mg/dL * Correction Factor: changed to 25 * Nutritional / Prandial insulin per carb ratio: changed to 8
[2024-06-22] MEDS: ALUMINUM/MAGNESIUM SUSP 30 ML UDC PO PRN (18:03)
[2024-06-22] MEDS: FAMOTIDINE 20MG IV PUSH 20 MG/5 ML SYR IV STA (20:55)
[2024-06-22] MEDS: SUCRALFATE 1 GM/10 ML UDC PO SCH (21:19)
[2024-06-22] MEDS: LANTUS PER UNIT CHARGE SQ ONE (21:29)
[2024-06-23] MEDS: ALBUT/IPRATROP 3MG/0.5MG NEB 3 ML VIAL NEB PRN (03:18)
--- NOTE | 2024-06-23 07:27 | Hospitalist Progress Note ---
Date of Service June 23, 2024 Assessment & Plan (1) Acute hypoxemic respiratory failure: Plan: 78-year-old male with past medical history significant for type 2 diabetes, hypothyroidism, hyperlipidemia, obstructive sleep apnea noncompliant with CPAP, severe persistent asthma dependent on systemic steroids, restrictive lung disease, neuromuscular respiratory weakness, chronic heart failure with preserved ejection fraction, hypertension, mild aortic stenosis, GERD, BPH, migraine variant, periodic Limb movement disorder, who lives at home with his comes because of shortness of breath. Patient is getting treated for pneumonia with Doxy and prednisone taper for last few days. As per he is sick for last 1 week. He is on oxygen 2 L at home. But since today morning he was getting more short of breath. Has mild cough. No fevers. Has some headache. Appetite is okay. No nausea ,vomiting or diarrhea. No abdominal pain. His oxygen was bumped to 2.5 L but still he was saturating only mid 80s while resting and while ambulating oxygen saturation dropping to 70s. In the ER is requiring high flow oxygen. Currently resting comfortably. Somewhat hard of hearing. helped with H&P. Patient denies any chest pain. Vision is okay. No runny nose or sore throat. Normal micturition. Acute hypoxemic respiratory failure Multifocal pneumonia COVID Asthma exacerbation Requiring high flow oxygen VBG obtained CTA chest - negative for PE 1. Accounting for limitations with extensive respiratory artifact, there is no definite evidence for large/central pulmonary embolism. The majority of the subsegmental and distal pulmonary artery segments are of nondiagnostic quality. 2. Extensive patchy confluent irregular ground-glass opacities now identified diffusely throughout the lungs, most prominent in the right lung apex. The primary consideration is pneumonia, to include atypical bacterial and viral etiologies. No pleural effusion or pneumothorax. Pulmonary medicine consulted - recommend to DC cefepime, vanco, MRSA swab negat., procal negat. DC Solu-Medrol, give dexamethasone 10 mg twice daily for at least 5 days follo wed by 10 mg daily for 5 days Pantoprazole Continue with O2 supplementation to keep oxygen saturation between 90-92%. Awake proning will be helpful Continue with incentive spirometry Continue with flutter valve. Recommend patient to be kept euvolemic to negative balance after initial fluid resuscitation Encouraged to continue with CPAP whenever he is sleeping and whenever he is napping. COVID COVID precautions Remdesivir and follow remdesivir labs Steroids -> dexamethasone as above, per pulmonary medicine CRP 16 -> 11 -> 3 Close monitor Multifocal pneumonia CT chest obtained, as above On Vanco and cefepime Complete p.o. doxycycline started as outpatient Follow the response Asthma (steroid dependent)exacerbation from above Restrictive lung disease Neuromuscular respiratory weakness DuoNebs ATC and as needed Hypertonic saline neb twice daily IV Solu-Medrol 40 mg 3 times daily-> switched to dexamethasone Antibiotics as above -> cont. w/ doxy Currently on high flow Continue home inhalers Hold home p.o. prednisone while getting IV steroids Pulmonary consulted Obstructive sleep apnea non compliant with CPAP On home oxygen Currently on high flow cont. cpap Elevated lactic acid Mostly from respiratory distress Trending down Will follow repeat levels Elevated troponin troponin this AM 788 Echo obtained and reviewed results read by cardiology cardiology consulted, likely demand ischemia Chronic heart failure with preserved infection Mild aortic stenosis Monitor for volume overload Type 2 diabetes Hold home p.o. medications Lantus and sliding scale Close monitor while on steroids Glycemic pharmacy consult Current HbA1c level 8.6% Hypothyroidism On Synthyroid Will follow TSH Hypertension Amlodipine and losartan and metoprolol succinate and doxazosin with holding parameters GERD On omeprazole BPH On doxazosin Monitor for urinary retention Hyperlipidemia On statin DVT prophylaxis Lovenox Disposition Telemetry Full code per discussion with the Admission and Anticipated Discharge Date Admission Date: June 19, 2024 Subjective Pt seen in follow up of Acute hypoxic resp. failure + COVID Sitting up in chair on high flow NC Pt reports feeling better, but had some epistaxis today Denies chest pain, + cough No abd. pain, n/v Pulmonary consulted CRP 16 -> 11 -> 3 Review of Systems Review of Systems: All systems reviewed & are unremarkable except as noted in Subjective Physical Exam Physical Exam: General- WD/WN M on HF NC, sitting up in chair Head- atraumatic Eyes- PERRL Neck- supple Lungs- + b/l ronchi and crackles (improved) Heart- regular rate and rhythm; no murmur Abdomen- normal bowel sounds, soft, nontender, no distension. Extremities- no pretibial edema, no erythema seen Neuro- alert, oriented ; PERRL, no facial palsy; no dysarthria; obeys commands, moves extremities Results & Data Results & Data Vital Signs (Past 12 Hours) Vital Signs Temp Pulse Pulse Resp BP Pulse Ox O2 Del Method 06/23/24 07:22 90 28 H 96 High Flow Nasal Cannula 06/23/24 03:40 90 19 91 High Flow Nasal Cannula 06/23/24 03:19 90 18 91 High Flow Nasal Cannula 06/23/24 03:04 36.8 C 89 20 151/77 H 90 High Flow Nasal Cannula 06/22/24 23:25 36.6 C 84 22 151/79 H 99 BiPAP 06/22/24 23:00 92 H 06/22/24 22:30 92 H 26 H 99 06/22/24 21:00 High Flow Nasal Cannula 06/22/24 21:00 36.8 C 85 20 132/70 91 High Flow Nasal Cannula 06/22/24 19:27 94 H 20 92 High Flow Nasal Cannula O2 Flow Rate FiO2 06/23/24 07:22 45 90 06/23/24 03:40 45 90 06/23/24 03:19 45 85 06/23/24 03:04 06/22/24 23:25 06/22/24 23:00 06/22/24 22:30 80 06/22/24 21:00 45 85 06/22/24 21:00 45 85 06/22/24 19:27 45 85 Laboratory Results 06/23/24 06/23/24 06/23/24 Range/Units 16:35 11:42 08:12 WBC 5.13 (4.8-10.8) K/ul RBC 5.17 (4.70-6.10) M/uL Hgb 14.7 (14.0-18.0) g/dl Hct 43.8 (42.0-52.0) % MCV 84.7 (80.0-100.0) fL MCH 28.4 (25.0-34.0) pg MCHC 33.6 (32.0-36.0) g/dL RDW Std Deviation 44.1 (36.4-46.3) fL RDW Coeff of Zainab 14.3 (11.5-14.5) % Plt Count 253 (130-400) K/uL MPV 9.5 (9.4-12.4) fL Sodium 142 (136-145) mmol/L Potassium 3.7 (3.5-5.1) mmol/L Chloride 107 (98-107) mmol/L Carbon Dioxide 21 (21-32) mmol/L Anion Gap 14 H (3-11) BUN 34 H (6-23) mg/dl Creatinine 0.91 (0.6-1.4) mg/dl Est Cr Clr Drug Dosing 59.8 ml/min eGFR 86.81 BUN/Creatinine Ratio 37.4 H (10-20) Glucose 212 H (70-99(Fasting)) mg/dl POC Glucose 195 H 152 H (70-99) mg/dl Calcium 8.7 (8.6-10.3) mg/dl Phosphorus 3.7 (2.5-4.9) mg/dl Magnesium 2.2 (1.7-2.4) mg/dl AST 24 (13-39) U/L ALT 22 (7-52) U/L C-Reactive Protein 3.28 H (0-0.5) mg/dl 06/23/24 06/22/24 Range/Units 07:42 20:50 WBC (4.8-10.8) K/ul RBC (4.70-6.10) M/uL Hgb (14.0-18.0) g/dl Hct (42.0-52.0) % MCV (80.0-100.0) fL MCH (25.0-34.0) pg MCHC (32.0-36.0) g/dL RDW Std Deviation (36.4-46.3) fL RDW Coeff of Zainab (11.5-14.5) % Plt Count (130-400) K/uL MPV (9.4-12.4) fL Sodium (136-145) mmol/L Potassium (3.5-5.1) mmol/L Chloride (98-107) mmol/L Carbon Dioxide (21-32) mmol/L Anion Gap (3-11) BUN (6-23) mg/dl Creatinine (0.6-1.4) mg/dl Est Cr Clr Drug Dosing ml/min eGFR BUN/Creatinine Ratio (10-20) Glucose (70-99(Fasting)) mg/dl POC Glucose 178 H 91 (70-99) mg/dl Calcium (8.6-10.3) mg/dl Phosphorus (2.5-4.9) mg/dl Magnesium (1.7-2.4) mg/dl AST (13-39) U/L ALT (7-52) U/L C-Reactive Protein (0-0.5) mg/dl Medications Administered Current Inpatient Medications Acetaminophen (Acetaminophen 325 Mg Tab) 650 mg PO Q4H PRN PRN Reason: Pain or Fever Stop: 07/20/24 00:57 Last Admin: 06/22/24 17:23 Dose: 650 mg Al Hydrox/Mg Hydrox/Simethicone (Aluminum/Magnesium Susp 30 Ml Udc) 15 ml PO Q6H PRN PRN Reason: acid reflux Stop: 07/22/24 17:33 Last Admin: 06/22/24 18:03 Dose: 15 ml Albuterol (Albut/Ipratrop 3mg/0.5mg Neb 3 Ml Vial) 3 ml NEB QIDR HARRISON; Protocol Stop: 07/20/24 06:59 Last Admin: 06/23/24 07:21 Dose: 3 ml Albuterol (Albut/Ipratrop 3mg/0.5mg Neb 3 Ml Vial) 3 ml NEB Q4H PRN; Protocol PRN Reason: Shortness Of Breath Or Wheezing Stop: 07/20/24 00:57 Last Admin: 06/23/24 03:18 Dose: 3 ml Albuterol (Albuterol Hfa 8 Gm Inhaler) 2 puffs INH Q4H PRN PRN Reason: Shortness Of Breath Or Wheezin Stop: 07/20/24 00:57 Amlodipine Besylate (Amlodipine Besylate 5 Mg Tab) 5 mg PO DAILY HARRISON Stop: 07/20/24 08:59 Last Admin: 06/22/24 07:41 Dose: 5 mg Aspirin (Aspirin 81 Mg Ectab) 81 mg PO DAILY HARRISON Stop: 07/20/24 08:59 Last Admin: 06/22/24 07:41 Dose: 81 mg Atorvastatin Calcium (Atorvastatin 20 Mg Tab) 20 mg PO DAILY HARRISON Stop: 07/20/24 08:59 Last Admin: 06/22/24 07:41 Dose: 20 mg Dextrose (Dextrose 50% 50 Ml Syringe) 25 - 50 ml IV UD PRN; Protocol PRN Reason: Hypoglycemia Protocol Stop: 07/20/24 00:57 Doxazosin Mesylate (Doxazosin Mesylate Tab 2 Mg Tab) 2 mg PO PM HARRISON Stop: 07/20/24 20:59 Last Admin: 06/22/24 21:17 Dose: 2 mg Doxycycline Hyclate (Doxycycline Hyclate 100 Mg Cap) 100 mg PO BID REPLACED BY [facility] Stop: 06/24/24 09:01 Last Admin: 06/22/24 21:17 Dose: 100 mg Enoxaparin Sodium (Enoxaparin Inj 40 Mg/0.4 Ml Syr) 40 mg SQ DAILY HARRISON Stop: 07/20/24 08:59 Last Admin: 06/22/24 07:41 Dose: 40 mg Fluticasone Furoate (Fluticasone Furoate 100mcg 14 Puffs/Inhaler) 1 puffs INH DAILY HARRISON Stop: 07/20/24 08:59 Last Admin: 06/22/24 07:43 Dose: 1 puffs Fluticasone Propionate (Fluticasone Propionate Na Spr 16 Gm Btl) 2 sprays NA DAILY HARRISON Stop: 07/20/24 08:59 Last Admin: 06/22/24 07:55 Dose: 2 sprays Glucagon (Glucagon For Inj 1 Mg Vial) 1 mg SQ UD PRN; Protocol PRN Reason: Hypoglycemia Protocol Stop: 07/20/24 00:57 Glucose (Glucose 40% Gel 15 Gm Tube) 15 - 30 gm PO UD PRN; Protocol PRN Reason: Hypoglycemia Protocol Stop: 07/20/24 00:57 Glucose (Glucose 10 Tab/Tube) 4 - 8 tab PO UD PRN; Protocol PRN Reason: Hypoglycemia Protocol Stop: 07/20/24 00:57 Remdesivir 100 mg/ Sodium (Chloride) 250 mls @ 250 mls/hr IV Q24H HARRISON Stop: 06/23/24 20:59 Last Infusion: 06/22/24 22:08 Dose: Infused Dexamethasone 10 mg/ Syringe 2.5 mls @ 1 mls/min IV BID HARRISON Stop: 07/21/24 08:59 Last Admin: 06/22/24 21:05 Dose: 1 mls/min Insulin Aspart (Insulin Aspart Per Unit Charge) 0 units SC ACHS REPLACED BY [facility] Stop: 07/20/24 02:14 Last Admin: 06/22/24 21:28 Dose: Not Given Levothyroxine Sodium (Levothyroxine Sodium 100 Mcg Tablet) 100 mcg PO DAILYBB REPLACED BY [facility] Stop: 07/20/24 06:29 Last Admin: 06/23/24 06:03 Dose: 100 mcg Losartan Potassium (Losartan Potassium 25 Mg Tab) 25 mg PO DAILY HARRISON Stop: 07/20/24 08:59 Last Admin: 06/22/24 07:41 Dose: 25 mg Metoprolol Succinate (Metoprolol Succ 25mg Ext Rel Tab) 12.5 mg PO DAILY HARRISON Stop: 07/20/24 08:59 Last Admin: 06/22/24 07:41 Dose: 12.5 mg Miscellaneous (Carbohydrates For Hypoglycemia ) 15 - 30 gm PO UD PRN PRN Reason: Hypoglycemia Protocol Stop: 07/20/24 00:57 Miscellaneous Information (Pharmacy Glycemic Mgmt Consult) 1 each N/A UD PRN PRN Reason: Consult Stop: 07/20/24 00:57 Montelukast Sodium (Montelukast Sodium 10 Mg Tablet) 10 mg PO DAILY HARRISON Stop: 07/20/24 08:59 Last Admin: 06/22/24 07:43 Dose: 10 mg Nitroglycerin (Nitroglycerin Sl 0.4 Mg/Tab Tab) 0.4 mg SL Q5M PRN PRN Reason: Chest Pain Stop: 07/20/24 00:57 Pantoprazole Sodium (Pantoprazole 40 Mg Tab) 40 mg PO BID HARRISON Stop: 07/21/24 08:59 Last Admin: 06/22/24 21:18 Dose: 40 mg Polyethylene Glycol (Polyethylene (Miralax) 17 Gm Pack) 17 gm PO DAILY PRN PRN Reason: Constipation Stop: 07/20/24 00:57 Sodium Chloride (Sodium Chlor 7% 4 Ml Neb) 4 ml NEB BIDR HARRISON Stop: 07/20/24 06:59 Last Admin: 06/23/24 07:21 Dose: 4 ml Sucralfate (Sucralfate 1 Gm/10 Ml Udc) 1 gm PO ACHS HARRISON Stop: 07/22/24 20:59 Last Admin: 06/22/24 21:19 Dose: 1 gm Umeclidinium/Vilanterol (Umeclidinium/Vilanterol 62.5/25mcg 7 Puffs/Inhaler) 1 puffs INH DAILY HARRISON Stop: 07/20/24 08:59 Last Admin: 06/22/24 07:44 Dose: 1 puffs
[2024-06-23 08:39] LABS: Hematocrit (blood only) 43.8 % (42.0-52.0); Hemoglobin 14.7 g/dl (14.0-18.0); Mean Corpuscular Hemoglobin 28.4 pg (25.0-34.0); Mean Corpuscular Hgb Conc 33.6 g/dL (32.0-36.0); Mean Corpuscular Volume 84.7 fL (80.0-100.0); Mean Platelet Volume 9.5 fL (9.4-12.4); Platelet Count 253 K/uL (130-400); RDW Coefficient of Variation 14.3 % (11.5-14.5); RDW Standard Deviation 44.1 fL (36.4-46.3); Red Blood Count 5.17 M/uL (4.70-6.10); White Blood Count 5.13 K/ul (4.8-10.8)
[2024-06-23] MEDS: LANTUS PER UNIT CHARGE SQ SCH (08:45)
[2024-06-23 08:55] LABS: BUN Creatinine Ratio 37.4 (10-20); C Reactive Protein 3.28 mg/dl (0-0.5); Calcium 8.7 mg/dl (8.6-10.3); Creatinine Clr Calc Pharmacy 59.8 ml/min; Magnesium 2.2 mg/dl (1.7-2.4); Phosphorus 3.7 mg/dl (2.5-4.9); Potassium 3.7 mmol/L (3.5-5.1)
[2024-06-23] MEDS ORDERED: LANTUS PER UNIT CHARGE SQ SCH (09:00)
[2024-06-23] MEDS: OXYMETAZOLINE 0.05% 30 ML BTL ONE (17:27)
--- NOTE | 2024-06-23 18:30 | Electrocardiogram Report ---
Test Reason : Blood Pressure : */* mmHG Vent. Rate : 106 BPM Atrial Rate : 106 BPM P-R Int : 140 ms QRS Dur : 74 ms QT Int : 346 ms P-R-T Axes : 31 8 -33 degrees QTcB Int : 459 ms Sinus tachycardia with Premature atrial complexes Otherwise normal ECG When compared with ECG of 19-Jun-2024 19:57, Premature ventricular complexes are no longer Present Premature atrial complexes are now Present T wave inversion now evident in Inferior leads Confirmed by Patricio Zuniga ([id number] on 06/23/2024 6:29:54 PM Referred By: REFERRED SELF Confirmed By: Patricio Zuniga
[2024-06-23] MEDS: LANTUS PER UNIT CHARGE SQ ONE (20:32)
[2024-06-24 05:48] LABS: Hematocrit (blood only) 39.7 % (42.0-52.0); Hemoglobin 13.7 g/dl (14.0-18.0); Mean Corpuscular Hemoglobin 28.4 pg (25.0-34.0); Mean Corpuscular Hgb Conc 34.5 g/dL (32.0-36.0); Mean Corpuscular Volume 82.2 fL (80.0-100.0); Mean Platelet Volume 9.9 fL (9.4-12.4); Platelet Count 248 K/uL (130-400); RDW Coefficient of Variation 14.6 % (11.5-14.5); RDW Standard Deviation 43.5 fL (36.4-46.3); Red Blood Count 4.83 M/uL (4.70-6.10)
[2024-06-24 06:03] LABS: BUN Creatinine Ratio 33.8 (10-20); Calcium 8.4 mg/dl (8.6-10.3); Magnesium 2.2 mg/dl (1.7-2.4); Phosphorus 3.4 mg/dl (2.5-4.9); Potassium 3.9 mmol/L (3.5-5.1)
[2024-06-24] MEDS: LANTUS PER UNIT CHARGE SQ SCH ×2 (08:07→21:29)
--- NOTE | 2024-06-24 12:36 | Pharmacy Report ---
Pharmacy Glycemic Short Note 2 - Date of Service June 24, 2024 - Glycemic Short BSG Results (Last 24 hours): 06/23/24 06/23/24 06/24/24 16:35 19:58 05:26 Glucose 231 H POC Glucose 195 H 218 H 06/24/24 06/24/24 07:16 11:40 Glucose POC Glucose 195 H 179 H OUTPATIENT ANTIDIABETIC REGIMEN: * glipizide 5 mg BID, empagliflozin 25 mg daily, pred 5 mg daily HbA1c 8.6% (06/20/24) ASSESSMENT: 06/24: * Blood sugars elevated yesterday (ranging 152-218 mg/dL) * Received 41 units of insulin (25 units of basal and 16 units of prandial/correctional bolus) * Remains on dexamethasone 10 mg IV BID - day #4 (per pulm, treat for at least 5 days, then once daily) 06/22: * BSG on 06/21 ranging from 144-253, steroid changed to IV dexamethasone, * Today BSGs better controlled with 132-144 * Will change Lantus to scale based starting tonight; will also tighten Novolog parameters 06/20: * Patient admitted with COVID pneumonia, ordered solumedrol 40 mg IV q8H * BSG initially elevated, has trended down with 10 units of lantus and weight based stress of 2 novolog * Continue current orders for now PLAN FOR INPATIENT GLYCEMIC CONTROL: * Hold outpatient oral diabetes medications * Basal insulin - increase * Lantus 25 units SC daily * Lantus 5-10-15 units SC HS * Bolus insulin - tighten * NovoLog per scale ACHS or Q6hrs while NPO * Goal Range: Low 110 mg/dL - High 150 mg/dL * Correction Factor: 20 mg/dL/unit * Nutritional / Prandial insulin per carb ratio of 1 unit per 6 grams CHO consumed
--- NOTE | 2024-06-24 14:08 | Hospitalist Progress Note ---
Date of Service June 24, 2024 Assessment & Plan (1) Acute hypoxemic respiratory failure: Plan: per Dr. Witt's note with addendum: 78-year-old male with past medical history significant for type 2 diabetes, hypothyroidism, hyperlipidemia, obstructive sleep apnea noncompliant with CPAP, severe persistent asthma dependent on systemic steroids, restrictive lung disease, neuromuscular respiratory weakness, chronic heart failure with preserved ejection fraction, hypertension, mild aortic stenosis, GERD, BPH, migraine variant, periodic Limb movement disorder, who lives at home with his comes because of shortness of breath. Patient is getting treated for pneumonia with Doxy and prednisone taper for last few days. As per he is sick for last 1 week. He is on oxygen 2 L at home. But since today morning he was getting more short of breath. Has mild cough. No fevers. Has some headache. Appetite is okay. No nausea ,vomiting or diarrhea. No abdominal pain. His oxygen was bumped to 2.5 L but still he was saturating only mid 80s while resting and while ambulating oxygen saturation dropping to 70s. In the ER is requiring high flow oxygen. Currently resting comfortably. Somewhat hard of hearing. helped with H&P. Patient denies any chest pain. Vision is okay. No runny nose or sore throat. Normal micturition. Acute hypoxemic respiratory failure Multifocal pneumonia COVID Asthma exacerbation Requiring high flow oxygen VBG obtained CTA chest - negative for PE 1. Accounting for limitations with extensive respiratory artifact, there is no definite evidence for large/central pulmonary embolism. The majority of the subsegmental and distal pulmonary artery segments are of nondiagnostic quality. 2. Extensive patchy confluent irregular ground-glass opacities now identified diffusely throughout the lungs, most prominent in the right lung apex. The primary consideration is pneumonia, to include atypical bacterial and viral etiologies. No pleural effusion or pneumothorax. Pulmonary medicine consulted - recommend to DC cefepime, vanco, MRSA swab negat., procal negat. DC Solu-Medrol, give dexamethasone 10 mg twice daily for at least 5 days followed by 10 mg daily for 5 days Pantoprazole Continue with O2 supplementation to keep oxygen saturation between 90-92%. Awake proning will be helpful Continue with incentive spirometry Continue with flutter valve. Recommend patient to be kept euvolemic to negative balance after initial fluid resuscitation Encouraged to continue with CPAP whenever he is sleeping and whenever he is napping. 06/24 improving now on 4 L NC completed remdesivir continue Decadron, Nebs, IS and FV Lovenox for DVT Px COVID COVID precautions Remdesivir and follow remdesivir labs Steroids -> dexamethasone as above, per pulmonary medicine CRP 16 -> 11 -> 3 Close monitor - improving Multifocal pneumonia CT chest obtained, as above On Vanco and cefepime Complete p.o. doxycycline started as outpatient Follow the response - improving Asthma (steroid dependent)exacerbation from above Restrictive lung disease Neuromuscular respiratory weakness DuoNebs ATC and as needed Hypertonic saline neb twice daily IV Solu-Medrol 40 mg 3 times daily-> switched to dexamethasone Antibiotics as above -> cont. w/ doxy Currently on high flow Continue home inhalers Hold home p.o. prednisone while getting IV steroids Pulmonary consulted --now on 4 L N C Obstructive sleep apnea non compliant with CPAP On home oxygen Currently on high flow cont. cpap Elevated lactic acid Mostly from respiratory distress Trending down Will follow repeat levels Elevated troponin troponin this AM 788 Echo obtained and reviewed results read by cardiology cardiology consulted, likely demand ischemia Chronic heart failure with preserved infection Mild aortic stenosis Monitor for volume overload Type 2 diabetes Hold home p.o. medications Lantus and sliding scale Close monitor while on steroids Glycemic pharmacy consult Current HbA1c level 8.6% Hypothyroidism On Synthroid Will follow TSH Hypertension Amlodipine and losartan and metoprolol succinate and doxazosin with holding parameters GERD On omeprazole BPH On doxazosin Monitor for urinary retention Hyperlipidemia On statin DVT prophylaxis Lovenox Disposition Telemetry Full code per discussion with the Admission and Anticipated Discharge Date Admission Date: June 19, 2024 Subjective ff up for covid pneumonia, respiratory failure, etc seen resting in chair, comfortable states he feels better daily breathing is improving, less cough no chest pain, palpitations, dizziness no other symptoms Review of Systems Review of Systems: all noted and negative except for above Physical Exam Physical Exam: General- oriented x 3, not in distress, speaks in sentences with no effort or accessory muscle use Eyes- anicteric Neck- no JVD Lungs-mild rhonchi BL no wheezing Heart- normal rate, regular rhythm; no murmurs Abdomen- normal bowel sounds, nondistended, soft, nontender Extremities- no pretibial edema, no calf tenderness Neuro- alert, oriented x 3; no gross focal neurologic deficits Skin- warm & dry Results & Data Results & Data Vital Signs (Past 12 Hours) Vital Signs Temp Pulse Resp BP Pulse Ox O2 Del Method O2 Flow Rate 06/24/24 11:49 36.9 C 111 H 20 131/75 91 Nasal Cannula 4.0 06/24/24 11:14 74 20 92 Nasal Cannula 2 06/24/24 08:33 High Flow Nasal Cannula 8 06/24/24 07:15 36.9 C 94 H 20 163/74 H 93 High Flow Nasal Cannula 40 06/24/24 07:15 80 20 93 High Flow Nasal Cannula 40 06/24/24 05:39 99 H 18 94 High Flow Nasal Cannula 40 06/24/24 04:01 88 18 94 High Flow Nasal Cannula 40 06/24/24 03:50 37.0 C 104 H 18 140/98 92 High Flow Nasal Cannula FiO2 06/24/24 11:49 06/24/24 11:14 06/24/24 08:33 06/24/24 07:15 45 06/24/24 07:15 45 06/24/24 05:39 45 06/24/24 04:01 50 06/24/24 03:50 all noted and reviewed including below
[2024-06-25] MEDS: dexAMETHasone 5 MG in SYRINGE 0 ML IV SCH (09:02)
[2024-06-25] MEDS: LANTUS PER UNIT CHARGE SQ SCH (09:03)
--- NOTE | 2024-06-25 09:56 | XRay Report ---
EXAM: Radiograph of the Chest 1 View INDICATION: COVID TECHNIQUE: Frontal view of the chest. COMPARISON: 06/19/2024 FINDINGS: Lungs and pleural spaces: Persistent but improved groundglass infiltrates in both lungs. No pleural effusion or pneumothorax. Heart: Shape and configuration within normal limits allowing for technique. Mediastinum: Normal contour. Bones/joints: No fracture, erosion or dislocation. Soft tissues: No abnormality noted. No radiopaque foreign body noted. Upper abdomen: No abnormality noted. IMPRESSION: Persistent but improved groundglass infiltrates in both lungs. ACT 112: Negative or not required by law. Electronically signed by Hailey Bueno 06-25-2024 09:55 AM
[2024-06-25 11:50] VITALS: BP 133/72; TEMP 98.1
--- NOTE | 2024-06-25 15:10 | Hospitalist Progress Note ---
Date of Service June 25, 2024 Assessment & Plan (1) Acute hypoxemic respiratory failure: Plan: per Dr. Witt's note with addendum: 78-year-old male with past medical history significant for type 2 diabetes, hypothyroidism, hyperlipidemia, obstructive sleep apnea noncompliant with CPAP, severe persistent asthma dependent on systemic steroids, restrictive lung disease, neuromuscular respiratory weakness, chronic heart failure with preserved ejection fraction, hypertension, mild aortic stenosis, GERD, BPH, migraine variant, periodic Limb movement disorder, who lives at home with his comes because of shortness of breath. Patient is getting treated for pneumonia with Doxy and prednisone taper for last few days. As per he is sick for last 1 week. He is on oxygen 2 L at home. But since today morning he was getting more short of breath. Has mild cough. No fevers. Has some headache. Appetite is okay. No nausea ,vomiting or diarrhea. No abdominal pain. His oxygen was bumped to 2.5 L but still he was saturating only mid 80s while resting and while ambulating oxygen saturation dropping to 70s. In the ER is requiring high flow oxygen. Currently resting comfortably. Somewhat hard of hearing. helped with H&P. Patient denies any chest pain. Vision is okay. No runny nose or sore throat. Normal micturition. Acute hypoxemic respiratory failure Multifocal pneumonia COVID Asthma exacerbation Requiring high flow oxygen VBG obtained CTA chest - negative for PE 1. Accounting for limitations with extensive respiratory artifact, there is no definite evidence for large/central pulmonary embolism. The majority of the subsegmental and distal pulmonary artery segments are of nondiagnostic quality. 2. Extensive patchy confluent irregular ground-glass opacities now identified diffusely throughout the lungs, most prominent in the right lung apex. The primary consideration is pneumonia, to include atypical bacterial and viral etiologies. No pleural effusion or pneumothorax. Pulmonary medicine consulted - recommend to DC cefepime, vanco, MRSA swab negat., procal negat. DC Solu-Medrol, give dexamethasone 10 mg twice daily for at least 5 days followed by 10 mg daily for 5 days Pantoprazole Continue with O2 supplementation to keep oxygen saturation between 90-92%. Awake proning will be helpful Continue with incentive spirometry Continue with flutter valve. Recommend patient to be kept euvolemic to negative balance after initial fluid resuscitation Encouraged to continue with CPAP whenever he is sleeping and whenever he is napping. 06/24 improving now on 4 L NC completed Remdesivir continue Decadron, Nebs, IS and FV Lovenox for DVT Px 06/25 much improved back to 2 L NC completed Remdesivir continue: Prednisone taper Incentive spirometry and Flutter Valve Protonix and Sucralfate while on high dose prednisone (patient was having heartburn while admitted) Multifocal pneumonia CT chest obtained, as above given Vanco and cefepime Completed p.o. doxycycline started as outpatient -- respiratory status improved Asthma (steroid dependent)exacerbation from above Restrictive lung disease Neuromuscular respiratory weakness DuoNebs ATC and as needed Hypertonic saline neb twice daily IV Solu-Medrol 40 mg 3 times daily-> switched to dexamethasone Antibiotics as above -> cont. w/ doxy Currently on high flow Continue home inhalers Hold home p.o. prednisone while getting IV steroids Pulmonary consulted --now on baseline 2 L NC Obstructive sleep apnea non compliant with CPAP On home oxygen Currently on high flow cont. cpap Elevated lactic acid Mostly from respiratory distress Trended down Will follow repeat levels Elevated troponin troponin this AM 788 Echo obtained and reviewed results read by cardiology cardiology consulted, likely demand ischemia Chronic heart failure with preserved infection Mild aortic stenosis Type 2 diabetes resume PO meds Current HbA1c level 8.6% Hypothyroidism On Synthroid Hypertension Amlodipine and losartan and metoprolol succinate and doxazosin GERD On omeprazole BPH On doxazosin Hyperlipidemia On statin DVT prophylaxis Lovenox given Disposition Telemetry Full code per discussion with the Admission and Anticipated Discharge Date Admission Date: June 19, 2024 Subjective ff up for covid 19 pneumonia, etc seen resting in chair, on 3 L NC comfortable in good spirits states he feels much better overall breathing continues to improve less cough no chest pain, palpitations, dizziness no other symptoms Review of Systems Review of Systems: all noted and negative except for above Physical Exam Physical Exam: General- oriented x 3, not in distress, speaks in sentences with no effort or accessory muscle use Eyes- anicteric Neck- no JVD Lungs- clear breath sounds bilaterally, no rales/wheezes Heart- normal rate, regular rhythm; no murmurs Abdomen- normal bowel sounds, nondistended, soft, no tenderness Extremities- no pretibial edema, no calf tenderness Neuro- alert, oriented x 3; no gross focal neurologic deficits Skin- warm & dry Results & Data Results & Data Vital Signs (Past 12 Hours) Vital Signs Temp Pulse Resp BP BP Pulse Ox O2 Del Method 06/25/24 11:48 36.7 C 82 20 133/72 91 Nasal Cannula 06/25/24 11:11 85 18 95 Nasal Cannula 06/25/24 09:19 High Flow Nasal Cannula 06/25/24 07:40 37.0 C 83 20 145/78 H 91 Nasal Cannula 06/25/24 07:09 90 20 93 Nasal Cannula 06/25/24 03:04 36.4 C L 84 18 150/82 H 89 L Nasal Cannula O2 Flow Rate 06/25/24 11:48 3.0 06/25/24 11:11 4 06/25/24 09:19 4 06/25/24 07:40 4.0 06/25/24 07:09 4 06/25/24 03:04 3 all noted and reviewed including below
[2024-06-25 15:13] VITALS: PULSE 92; RESP 18; O2SAT 92
--- NOTE | 2024-06-25 15:20 | Discharge Summary ---
Discharge Summary Date of Service June 25, 2024 Principal Dx & Hospital Course #1 = Principal Diagnosis (1) Acute hypoxemic respiratory failure: per Dr. Witt's note with addendum: 78-year-old male with past medical history significant for type 2 diabetes, hypothyroidism, hyperlipidemia, obstructive sleep apnea noncompliant with CPAP, severe persistent asthma dependent on systemic steroids, restrictive lung disease, neuromuscular respiratory weakness, chronic heart failure with preserved ejection fraction, hypertension, mild aortic stenosis, GERD, BPH, migraine variant, periodic Limb movement disorder, who lives at home with his comes because of shortness of breath. Patient is getting treated for pneumonia with Doxy and prednisone taper for last few days. As per he is sick for last 1 week. He is on oxygen 2 L at home. But since today morning he was getting more short of breath. Has mild cough. No fevers. Has some headache. Appetite is okay. No nausea ,vomiting or diarrhea. No abdominal pain. His oxygen was bumped to 2.5 L but still he was saturating only mid 80s while resting and while ambulating oxygen saturation dropping to 70s. In the ER is requiring high flow oxygen. Currently resting comfortably. Somewhat hard of hearing. helped with H&P. Patient denies any chest pain. Vision is okay. No runny nose or sore throat. Normal micturition. Acute hypoxemic respiratory failure Multifocal pneumonia COVID Asthma exacerbation Requiring high flow oxygen VBG obtained CTA chest - negative for PE 1. Accounting for limitations with extensive respiratory artifact, there is no definite evidence for large/central pulmonary embolism. The majority of the subsegmental and distal pulmonary artery segments are of nondiagnostic quality. 2. Extensive patchy confluent irregular ground-glass opacities now identified diffusely throughout the lungs, most prominent in the right lung apex. The primary consideration is pneumonia, to include atypical bacterial and viral etiologies. No pleural effusion or pneumothorax. Pulmonary medicine consulted - recommend to DC cefepime, vanco, MRSA swab negat., procal negat. DC Solu-Medrol, give dexamethasone 10 mg twice daily for at least 5 days followed by 10 mg daily for 5 days Pantoprazole Continue with O2 supplementation to keep oxygen saturation between 90-92%. Awake proning will be helpful Continue with incentive spirometry Continue with flutter valve. Recommend patient to be kept euvolemic to negative balance after initial fluid resuscitation Encouraged to continue with CPAP whenever he is sleeping and whenever he is napping. 06/24 improving now on 4 L NC completed Remdesivir continue Decadron, Nebs, IS and FV Lovenox for DVT Px 06/25 much improved back to 2 L NC completed Remdesivir continue: Prednisone taper Incentive spirometry and Flutter Valve Protonix and Sucralfate while on high dose prednisone (patient was having heartburn while admitted) Multifocal pneumonia CT chest obtained, as above given Vanco and cefepime Completed p.o. doxycycline started as outpatient -- respiratory status improved Asthma (steroid dependent)exacerbation from above Restrictive lung disease Neuromuscular respiratory weakness DuoNebs ATC and as needed Hypertonic saline neb twice daily IV Solu-Medrol 40 mg 3 times daily-> switched to dexamethasone Antibiotics as above -> cont. w/ doxy Currently on high flow Continue home inhalers Hold home p.o. prednisone while getting IV steroids Pulmonary consulted --now on baseline 2 L NC Obstructive sleep apnea non compliant with CPAP On home oxygen Currently on high flow cont. cpap Elevated lactic acid Mostly from respiratory distress Trended down Will follow repeat levels Elevated troponin troponin this AM 788 Echo obtained and reviewed results read by cardiology cardiology consulted, likely demand ischemia Coronary Artery Calcification seen on CT chest: Prominent coronary artery calcification in the LAD distribution, stable. -- continue ASA and Atorvastatin Chronic heart failure with preserved infection Mild aortic stenosis Type 2 diabetes resume PO meds Current HbA1c level 8.6% Hypothyroidism On Synthroid Hypertension Amlodipine and losartan and metoprolol succinate and doxazosin GERD On omeprazole BPH On doxazosin Hyperlipidemia On statin DVT prophylaxis Lovenox given Disposition Telemetry Full code per discussion with the Notes For Next Care Provider Medication Changes From Visit Prednisone taper until usual 5mg po daily Protonix and Sucralfate while on Prednisone taper then resume usual Omeprazole Admission HPI Per Admitting Provider 78-year-old male with past medical history significant for type 2 diabetes, hypothyroidism, hyperlipidemia, obstructive sleep apnea noncompliant with CPAP, severe persistent asthma dependent on systemic steroids, restrictive lung disease, neuromuscular respiratory weakness, chronic heart failure with preserved ejection fraction, hypertension, mild aortic stenosis, GERD, BPH, migraine variant,perodic Limb movement disorder, who lives at home with his comes because of shortness of breath. Patient is getting treated for pneumonia with Doxy and prednisone taper for last few days. As per he is sick for last 1 week. He is on oxygen 2 L at home. But since today morning he was getting more short of breath. Has mild cough. No fevers. Has some headache. Appetite is okay. No nausea ,vomiting or diarrhea. No abdominal pain. His oxygen was bumped to 2.5 L but still he was saturating only mid 80s while resting and while ambulating oxygen saturation dropping to 70s. In the ER is requiring high flow oxygen. Currently resting comfortably. Somewhat hard of hearing. helped with H&P. Patient denies any chest pain. Vision is okay. No runny nose or sore throat. Normal micturition. Past medical history. As mentioned above Past surgical history. Colonoscopy. Tonsillectomy. Social history. . No smoking. No alcohol use. No drug use. Family history. Father had asthma. Diabetes. Stroke. Mother had diabetes. Sister has diabetes. Brother has heart disease. Rheumatoid arthritis. Admission Exam Per Admitting Provider General- Not in acute distress Head- atraumatic Eyes- PERRL ENT- oropharynx clear Neck- supple, no JVD. Lungs- clear to auscultation mild b/l ronchi and crackles Heart- regular rate and rhythm; no murmur, no gallop. Abdomen- normal bowel sounds, soft, nontender, no distension. Extremities- no pretibial edema, no erythema seen Neuro- alert, oriented ; PERRL, no facial palsy; no dysarthria; obeys commands, moves extremities Discharge Exam General- oriented x 3, not in distress, speaks in sentences with no effort or accessory muscle use Eyes- anicteric Neck- no JVD Lungs- clear breath sounds bilaterally, no rales/wheezes Heart- normal rate, regular rhythm; no murmurs Abdomen- normal bowel sounds, nondistended, soft, no tenderness Extremities- no pretibial edema, no calf tenderness Neuro- alert, oriented x 3; no gross focal neurologic deficits Skin- warm & dry Updated Medication List Medication Instructions Recorded Confirmed Type albuterol sulfate 90 mcg/actuation 2 puff inhalation Q4H PRN 06/19/24 06/19/24 History aerosol inhaler Shortness Of Breath Or Wheezing amlodipine 5 mg tablet 5 mg PO DAILY 06/19/24 06/19/24 History aspirin 81 mg tablet,delayed 81 mg PO DAILY 06/19/24 06/19/24 History release atorvastatin 20 mg tablet 20 mg PO DAILY 06/19/24 06/19/24 History doxazosin 2 mg tablet 2 mg PO PM 06/19/24 06/19/24 History empagliflozin 25 mg tablet 25 mg PO DAILY 06/19/24 06/19/24 History (Jardiance) fluticasone fur. 100 mcg-umeclid 1 inh inhalation DAILY 06/19/24 06/19/24 History 62.5 mcg-vilant 25 mcg inhalat.powder (Trelegy Ellipta) glipizide 5 mg tablet 5 mg PO BID 06/19/24 06/19/24 History ipratropium bromide 0.02 % 2.5 mg continuous nebulization TID 06/19/24 06/19/24 History solution for inhalation levalbuterol HCl 1.25 mg/3 mL 1.25 mg inhalation Q4H PRN sob 06/19/24 06/19/24 History solution for nebulization levothyroxine 100 mcg tablet 100 mcg PO DAILY 06/19/24 06/19/24 History losartan 25 mg tablet 25 mg PO DAILY 06/19/24 06/19/24 History metoprolol succinate 25 mg 12.5 mg PO DAILY 06/19/24 06/19/24 History tablet,extended release 24 hr mometasone 50 mcg/actuation nasal 2 spray intranasal DAILY 06/19/24 06/19/24 History spray montelukast 10 mg tablet 10 mg PO DAILY 06/19/24 06/19/24 History omalizumab 150 mg/mL subcutaneous 150 mg subcut Q4WK 06/19/24 06/19/24 History syringe (Xolair) omeprazole 20 mg capsule,delayed 20 mg PO DAILY 06/19/24 06/19/24 History release prednisone 5 mg tablet 5 mg PO DAILY 06/19/24 06/19/24 History sodium chloride 3 % for 4 ml inhalation BID 06/19/24 06/19/24 History nebulization pantoprazole 40 mg tablet,delayed 40 mg PO BID 6 days #12 tabs 06/25/24 Rx release prednisone 10 mg tablet 10 mg PO DAILY #14 tabs 06/25/24 Rx sucralfate 100 mg/mL oral 1 g (10 mL) PO ACHS 6 days #60 mL 06/25/24 Rx suspension Hospital Stay Data Consultations 06/19/24 21:47 ED Decision to Admit Stat 06/20/24 08:00 Consult Pulmonology Routine 06/20/24 11:20 Consult Cardiology Routine Diagnostic Imagining Performed 06/19/24 19:59 CT for pulmonary embolism PE [CT angio chest PE protocol] Stat Exam(s): CTA CHEST IV Amt: 120 ml optiray 320 EXAM: CT Angiography Chest With Intravenous Contrast CLINICAL HISTORY: Evaluate for PE; SOB; hypoxia. TECHNIQUE: Axial computed tomographic angiography images of the chest with intravenous contrast. CTDI is 28.14 mGy and DLP is 761.06 mGy-cm. Automated exposure control was utilized for the study. A dose lowering technique was utilized adhering to the principles of ALARA. MIP reconstructed images were created and reviewed. COMPARISON: CTA chest 12/29/2023 FINDINGS: Limitations: There is extensive and diffuse respiratory artifact, which significantly degrades image quality throughout the examination. Pulmonary arteries: Accounting for limitations with extensive respiratory artifact, there is no definite evidence for large/central pulmonary embolism. The majority of the subsegmental and distal pulmonary artery segments are of nondiagnostic quality. Aorta: The thoracic aorta is normal in caliber. No dissection or aneurysm. Lungs: Extensive patchy confluent irregular ground-glass opacities now identified diffusely throughout the lungs, most prominent in the right lung apex. Curvilinear changes noted involving the right lower lobe adjacent to the hemidiaphragm are presumed coexisting compressive atelectasis. Pleural space: Unremarkable. No significant effusion. No pneumothorax. Heart: The cardiac chambers are normal in size. No CT evidence for right heart strain. No pericardial effusion. Prominent coronary artery calcification in the LAD distribution, stable. Bones/joints: No acute fracture. No dislocation. Soft tissues: Unremarkable. Lymph nodes: Unremarkable. No enlarged lymph nodes. Upper abdomen: Similar asymmetric elevation of the right hemidiaphragm. IMPRESSION: 1. Accounting for limitations with extensive respiratory artifact, there is no definite evidence for large/central pulmonary embolism. The majority of the subsegmental and distal pulmonary artery segments are of nondiagnostic quality. 2. Extensive patchy confluent irregular ground-glass opacities now identified diffusely throughout the lungs, most prominent in the right lung apex. The primary consideration is pneumonia, to include atypical bacterial and viral etiologies. No pleural effusion or pneumothorax. Electronically signed by: Pedro Tovar MD 06/19/24 22:33 PM Pending Results Patient Have Any Pending Studies at Discharge: No Discharge Instructions Given to Patient (Per Discharging Provider) PLEASE REFER TO YOUR NEW MEDICATION LIST AND FOLLOW INSTRUCTIONS CAREFULLY. YOUR NEW MEDICATIONS INCLUDE: Prednisone taper as follows: 40 mg p.o. daily x 2 days, then 20 mg p.o. daily x 2 days, then 10 mg p.o. daily x 2 days, then resume usual prednisone 5 mg p.o. daily Protonix 40 mg twice a day x 6 days Sucralfate before meals and at bedtime x 6 days -Then resume usual omeprazole Continue using incentive spirometer every 2 hours, and flutter valve 4 times a day times at least 1 week. Ambulate frequently to prevent blood clots in the legs and in the lungs. Take a probiotic daily and eat yogurt daily for at least 2 weeks to prevent diarrhea from antibiotics received. PLEASE CALL YOUR PRIMARY CARE PHYSICIAN OR RETURN TO THE ER IF WITH WORSENING OF SYMPTOMS, INCLUDING Shortness of breath, cough, chest pain, leg pain and swelling, etc. FOLLOW UP WITH PRIMARY CARE PHYSICIAN IN 1 WEEK. THE CLINIC WILL BE CALLING YOU SOON FOR THE APPOINTMENT. Total Time Total Time Spent Total Time Spent (In Minutes): 50 minutes
== END 2024-06-25 17:21 | disposition home or self-care (01) | DRG 177 ==
LOC: ED 19:46 → SUATTDRO 23:25 → 2S 23:25